=== PATIENT | male | born 1945 | race Two or more races ===

== ENCOUNTER 2021-11-16 11:28 | Outpatient (REF) | payer MEDICARE, MEDICAID, SELFPAY ==
[2021-11-16 12:48] LABS: COVID-19 Test Negative (Negative)
== END 2021-11-16 11:29 | disposition home or self-care (01) ==
LOC: HO.LAB 11:28
PROVIDERS: PCP Internal Medicine; Visit Provider Internal Medicine
DX: Z20.822 Contact with and (suspected) exposure to COVID-19 (principal)
CPT/HCPCS: 36415; 87635; C9803

== ENCOUNTER 2021-11-20 19:02 | Inpatient (IN) | payer MEDICARE, MEDICAID, SELFPAY ==
--- NOTE | ~2021-11-20 | XR_ITS ---
EXAMINATION: XR CHEST CLINICAL INFORMATION: Shortness of breath and cough COMPARISON: Chest radiograph 01/08/2009 TECHNIQUE: Frontal view of the chest was obtained. FINDINGS: Heart size is normal. At the time of the prior study some atelectasis was present at the right lung base with some minimal chronic markings at the left lung base which persist today. On the current study, there are increased peripheral patchy densities with relative sparing of the upper lobes. Findings would certainly be compatible with mild changes related to Covid pulmonary disease. XR/XR chest 1V IMPRESSION: New peripheral patchy densities compared with the 2009 study.
--- NOTE | ~2021-11-20 | CT_ITS ---
EXAMINATION: CT CHEST WITHOUT CONTRAST CLINICAL INFORMATION: Shortness of breath and abnormal chest x-ray COMPARISON: Chest radiograph earlier today, chest radiograph 01/08/2009, CTA chest 05/15/2009 TECHNIQUE: Multidetector volumetric CT imaging of the chest was done. Axial MIP volume rendering provided. Sagittal and coronal reformatted images were obtained. This CT examination was performed using dose optimization techniques as appropriate, variously including the following: *Automated exposure control *Adjustment of mA and/or kV according to patient size (this includes techniques or standardized protocols for targeted exams where dose is matched to indication/reason for exam; i.e. extremities or head) *Use of iterative reconstruction technique DLP: 279 mGy-cm FINDINGS: LUNGS: The findings in the lung bases demonstrates severe COPD with peripheral honeycombing and some associated bronchiectasis most marked at the lung bases. Findings are suggestive of associated interstitial lung disease/idiopathic pulmonary fibrosis. Similar changes were present at the time of the 05/15/2009 exam although exact comparisons cannot be made as only a portion of the CT images are available for review. No groundglass infiltrates are seen that would be typical for Covid as mentioned in the prior chest radiograph report. No suspicious lung masses are seen. MEDIASTINUM: Preaortic, AP window pretracheal/precarinal and subcarinal lymph nodes are present. The largest precarinal lymph node measures 2.0 x 1.1 cm (5:199). The largest subcarinal lymph node measures 3.4 x 2.0 x 3.0 cm (5:251). It is difficult to assess for hilar lymph nodes without IV contrast. Marked coronary calcification is seen. Heart size is normal. PLEURA: There is no pleural effusion. No pleural mass or thickening. AXILLA: No lymphadenopathy. UPPER ABDOMEN: Unremarkable. OSSEOUS STRUCTURES: Degenerative changes present throughout the spine. No bony destructive lesions. CT/CT chest wo con IMPRESSION: 1. There is severe COPD as well as peripheral honeycombing and bronchiectasis suggestive of associated interstitial lung disease/idiopathic pulmonary fibrosis. 2. The questionable findings of Covid pneumonia suspected on the chest radiograph are NOT present. 3. Mediastinal lymphadenopathy, possibly reactive. Fleischner guidelines were followed.
[2021-11-20 19:26] VITALS: BP 138/65; PULSE 92; RESP 24; TEMP 37.4; O2SAT 93; BMI 27.8
--- NOTE | 2021-11-20 19:29 | ECG_ITS ---
Test Reason : SOB Blood Pressure : / mmHG Vent. Rate : 081 BPM Atrial Rate : 081 BPM P-R Int : 154 ms QRS Dur : 092 ms QT Int : 388 ms P-R-T Axes : 062 029 052 degrees QTc Int : 450 ms Artifact in tracing Normal sinus rhythm Likely normal EKG When compared with ECG of 15-MAY-2009 12:07, Minimal criteria for Inferior infarct are no longer Present Referred By: Radha Medellin Electronically Signed By:ANA SOLIS
--- NOTE | 2021-11-20 19:30 | ED.SOB ---
HPI - SOB/Dyspnea General Chief Complaint: Dyspnea Stated Complaint: diff breathing Time Seen by Provider: 11/20/21 19:08 Source: patient, EMS and purse seiner ([place]ian) Mode of arrival: EMS Limitations: no limitations History of Present Illness HPI Narrative: 76-year-old male a former smoker presented with symptoms of shortness of breath, productive cough of white sputum, symptoms started 3 days ago, patient declined any chest pain, no sick contacts, no recent travel, shortness of breath was described as a constant symptoms for 3 days, exacerbated with exertion, relieved by rest, no fever, no chills, no lower extremity swelling. Patient received flu/COVID vaccination. Patient has no documented history of COPD or asthma, do not use supplemental oxygen at home. Reportedly by EMS was satting 75% on room air at home improved with 4 L of supplemental oxygen via nasal cannula. Related Data Home Medications Medication Instructions Recorded Confirmed adalimumab 40 mg/0.4 mL 40 mg SUBCUT Q2W 11/20/21 11/20/21 subcutaneous pen kit (Humira(CF) Pen) amlodipine 5 mg tablet 1 tab PO DAILY 11/20/21 11/20/21 folic acid 400 mcg tablet 40 mg PO BID 11/20/21 11/20/21 hydrochlorothiazide 25 mg tablet 1 tab PO DAILY 11/20/21 11/20/21 losartan 100 mg tablet 1 tab PO DAILY 11/20/21 11/20/21 methotrexate sodium 2.5 mg tablet 5 tab PO QWEEK 11/20/21 11/20/21 metoprolol tartrate 50 mg tablet 1 tab PO BID 11/20/21 11/20/21 omeprazole 20 mg capsule,delayed 1 cap PO DAILY 11/20/21 11/20/21 release rosuvastatin 10 mg tablet 1 tab PO BEDTIME 11/20/21 11/20/21 timolol maleate 0.5 % eye drops drp OPHTHALMIC (EYE) 11/20/21 11/20/21 tramadol 50 mg tablet 1 tab PO BID PRN 11/20/21 11/20/21 warfarin 5 mg tablet 1 tab PO DAILY 11/20/21 11/20/21 Allergies Allergy/AdvReac Type Severity Reaction Status Date / Time No Known Allergies Allergy Unknown NOT Unverified 08/14/20 16:41 APPLICABLE Review of Systems Review of Systems: All other systems are reviewed and are negative Constitutional: Reports as per HPI and Reports no additional constitutional complaints Eyes: Reports as per HPI and Reports no additional eye complaints Reports system reviewed and no additional complaints, except as documented Cardiovascular: Reports as per HPI and Reports no additional cardiovascular complaints Respiratory: Reports as per HPI and Reports no additional respiratory complaints Gastrointestinal: Reports as per HPI and Reports no additional gastrointestinal complaints Genitourinary: Reports no additional female genitourinary complaints Musculoskeletal: Reports no additional musculoskeletal complaints Skin/Breast: Reports system reviewed and no additional complaints, except as docu Psychiatric: Reports no additional psychiatric complaints Endocrine: Reports no additional endocrine complaints Hematologic/Lymphatic: Reports no additional hematologic/lymphatic complaints Allergic/Immunologic: Reports no additional allergic/immunologic complaints Reports system reviewed and no additional complaints, except as documented and Reports Abnormal speech present [facility] Social History Social History Advance Directives: No Advance Directives Information Provided: Yes Physical Exam Vital Signs: Vital Signs: Last Vital Signs Temp 99.3 F 11/20/21 19:26 Pulse 82 11/20/21 19:58 Resp 24 H 11/20/21 19:26 BP 138/65 11/20/21 19:26 Pulse Ox 93 11/20/21 19:26 BMI result Body Mass Index 27.8 Vital signs have been reviewed as appeared to be correct. Blood pressure normal. Heart rate normal. Respiration rate normal. Temperature normal. Oxygen saturation normal. Appearance: Alert. Oriented X3. No acute distress. Head: Normal external exam. Normocephalic. Atraumatic. No Navarro signs noted. No raccoon eyes noted Eyes: PERRLA. EOMI. Conjunctiva and sclera normal. Eyelids normal. ENT: TM's Normal. Pharynx normal. Uvula midline. Moist mucous membranes. No trismus noted. No drooling noted. No muffled voice noted. Neck: Normal inspection. Neck supple. FROM. No adenopathy. Thyroid Normal. No meningeal signs. No neck mass noted. CVS: Normal heart rate and rhythm. Heart sound normal. No murmurs noted. Pulses normal throughout. Respiratory: No respiratory distress. Painless inspiration. Breath sounds normal. Bilateral diffuse mild expiratory wheezing with prolonged expiration, No accessory muscle usage noted or decreased air movement noted. Abdomen: Soft and nontender. Bowel sounds normal in all 4 quadrants. No distention noted. No organomegaly noted. No visible injury noted. Back: No CVA tenderness. Full range of motion noted. Skin: Skin warm and dry. Normal skin color. Normal skin turgor. No rashes/lesions/lacerations noted. Extremities: No lower extremity edema. Extremities exhibit normal range of motion. Extremities nontender. Neuro: Oriented X 3. Cranial nerve exam: II-XII are grossly intact No motor deficit. No sensory deficit. Reflexes normal. Course Course Course Narrative: Assessment and plan. 76-year-old male former smoker but no official diagnosis of COPD or asthma, patient do not need or use supplemental oxygen, the mended by EMS patient was hypoxic on room, in the ED patient improved with 6 L of oxygen, patient received bronchodilator/Solu-Medrol/magnesium for wheezing, patient is vaccinated for COVID and tested negative, however patient is positive for flu. Will admit the patient for flu with hypoxia and the need of supplemental oxygen. MDM - SOB/Dyspnea Medical Records Attestation: I reviewed the patient's medical records. Lab Data Attestation: I reviewed the patient's lab results. Result diagrams: 11/20/21 20:48 11/20/21 20:48 Labs: Lab Results 11/20/21 11/20/21 11/20/21 Range/Units 20:22 20:48 20:48 WBC 7.1 (4.8-10.8) X10*3/uL RBC 4.80 (4.60-5.80) X10*6/uL Hgb 15.2 (14.0-18.0) g/dl Hct 45.5 (42.0-52.0) % MCV 94.8 (80.0-98.0) fL MCH 31.7 (27.0-33.0) pg MCHC 33.4 (31.0-36.0) g/dl RDW 13.9 (11.0-16.0) % Plt Count 146 L (160-400) X10*3/uL MPV 10.3 (9.4-12.4) fL Immature Gran % (Auto) 0.3 (0.0-0.4) % Neut % (Auto) 56.4 (45-73) % Lymph % (Auto) 30.0 (20-40) % Amador % (Auto) 11.2 H (2-11) % Eos % (Auto) 1.8 (0-4) % Baso % (Auto) 0.3 (0-2) % Lymph # (Auto) 2.1 (1.2-4.9) X10*3/uL Amador # (Auto) 0.8 (0.1-1.2) X10*3/uL Eos # (Auto) 0.1 (0.0-0.4) X10*3/uL Baso # (Auto) 0.0 (0.0-0.2) X10*3/uL Abs Immat Gran (auto) 0.02 (0.00-0.03) X10*3/uL Absolute Neuts (auto) 4.0 (2.0-8.3) x10*3/uL Absolute Nucleated RBC 0.000 (0.0-0.012) X10*3/uL Nucleated RBC % (auto) 0.0 (0.0-0.2) /100WBC O2 Saturation 97.0 % ABG pH at Pt Temp 7.48 H (7.35-7.45) ABG pH (Temp Correct) 7.47 H (7.35-7.45) ABG pCO2 at Pt Temp 33 (32-45) mmHg ABG pCO2 (Temp Corrct 33 (32-45) mmHg ABG pO2 at Pt Temp 99 (83-108) mmHg ABG pO2 (Temp Correct 102 (83-108) ABG HCO3 24 (22-26) mmol/L ABG Base Excess (Actual) 2.0 mmol/L Sodium 128 L (135-145) mmol/L Potassium 4.5 (3.3-5.1) mmol/L Chloride 93 L (96-108) mmol/L Carbon Dioxide 26 (22-29) mmol/L Anion Gap 14 (12-20) BUN 20 H (9-16) mg/dL Creatinine 1.47 H (0.5-1.4) mg/dL Estim Creat Clear Calc 48.4 Estimated GFR 46 Random Glucose 115 (60-115) mg/dL Lactic Acid (0.5-2.0) mmol/L Calcium 9.4 (8.4-10.2) mg/dL Total Bilirubin 0.7 (0.0-1.0) mg/dL Direct Bilirubin 0.3 (0.0-0.5) mg/dL AST 27 (5-37) U/L ALT 22 (0-40) U/L Alkaline Phosphatase 87 (39-117) U/L Troponin I High Sens (<3.5-35.0) ng/L B-Natriuretic Peptide (<100) pg/mL Total Protein 9.0 H (6.5-8.0) g/dL Albumin 3.9 (3.5-5.0) g/dL Lipase 75 (8-78) U/L Influenza Type A (PCR) (Negative) Influenza Type B (PCR) (Negative) RSV RNA Qual (PCR) (Negative) SARS-CoV-2 RNA (RT-PCR) (Negative) 11/20/21 11/20/21 11/20/21 Range/Units 20:48 20:48 20:48 WBC (4.8-10.8) X10*3/uL RBC (4.60-5.80) X10*6/uL Hgb (14.0-18.0) g/dl Hct (42.0-52.0) % MCV (80.0-98.0) fL MCH (27.0-33.0) pg MCHC (31.0-36.0) g/dl RDW (11.0-16.0) % Plt Count (160-400) X10*3/uL MPV (9.4-12.4) fL Immature Gran % (Auto) (0.0-0.4) % Neut % (Auto) (45-73) % Lymph % (Auto) (20-40) % Amador % (Auto) (2-11) % Eos % (Auto) (0-4) % Baso % (Auto) (0-2) % Lymph # (Auto) (1.2-4.9) X10*3/uL Amador # (Auto) (0.1-1.2) X10*3/uL Eos # (Auto) (0.0-0.4) X10*3/uL Baso # (Auto) (0.0-0.2) X10*3/uL Abs Immat Gran (auto) (0.00-0.03) X10*3/uL Absolute Neuts (auto) (2.0-8.3) x10*3/uL Absolute Nucleated RBC (0.0-0.012) X10*3/uL Nucleated RBC % (auto) (0.0-0.2) /100WBC O2 Saturation % ABG pH at Pt Temp (7.35-7.45) ABG pH (Temp Correct) (7.35-7.45) ABG pCO2 at Pt Temp (32-45) mmHg ABG pCO2 (Temp Corrct (32-45) mmHg ABG pO2 at Pt Temp (83-108) mmHg ABG pO2 (Temp Correct (83-108) ABG HCO3 (22-26) mmol/L ABG Base Excess (Actual) mmol/L Sodium (135-145) mmol/L Potassium (3.3-5.1) mmol/L Chloride (96-108) mmol/L Carbon Dioxide (22-29) mmol/L Anion Gap (12-20) BUN (9-16) mg/dL Creatinine (0.5-1.4) mg/dL Estim Creat Clear Calc Estimated GFR Random Glucose (60-115) mg/dL Lactic Acid 1.2 (0.5-2.0) mmol/L Calcium (8.4-10.2) mg/dL Total Bilirubin (0.0-1.0) mg/dL Direct Bilirubin (0.0-0.5) mg/dL AST (5-37) U/L ALT (0-40) U/L Alkaline Phosphatase (39-117) U/L Troponin I High Sens 7.4 (<3.5-35.0) ng/L B-Natriuretic Peptide 140 H (<100) pg/mL Total Protein (6.5-8.0) g/dL Albumin (3.5-5.0) g/dL Lipase (8-78) U/L Influenza Type A (PCR) (Negative) Influenza Type B (PCR) (Negative) RSV RNA Qual (PCR) (Negative) SARS-CoV-2 RNA (RT-PCR) (Negative) 11/20/21 Range/Units 20:48 WBC (4.8-10.8) X10*3/uL RBC (4.60-5.80) X10*6/uL Hgb (14.0-18.0) g/dl Hct (42.0-52.0) % MCV (80.0-98.0) fL MCH (27.0-33.0) pg MCHC (31.0-36.0) g/dl RDW (11.0-16.0) % Plt Count (160-400) X10*3/uL MPV (9.4-12.4) fL Immature Gran % (Auto) (0.0-0.4) % Neut % (Auto) (45-73) % Lymph % (Auto) (20-40) % Amador % (Auto) (2-11) % Eos % (Auto) (0-4) % Baso % (Auto) (0-2) % Lymph # (Auto) (1.2-4.9) X10*3/uL Amador # (Auto) (0.1-1.2) X10*3/uL Eos # (Auto) (0.0-0.4) X10*3/uL Baso # (Auto) (0.0-0.2) X10*3/uL Abs Immat Gran (auto) (0.00-0.03) X10*3/uL Absolute Neuts (auto) (2.0-8.3) x10*3/uL Absolute Nucleated RBC (0.0-0.012) X10*3/uL Nucleated RBC % (auto) (0.0-0.2) /100WBC O2 Saturation % ABG pH at Pt Temp (7.35-7.45) ABG pH (Temp Correct) (7.35-7.45) ABG pCO2 at Pt Temp (32-45) mmHg ABG pCO2 (Temp Corrct (32-45) mmHg ABG pO2 at Pt Temp (83-108) mmHg ABG pO2 (Temp Correct (83-108) ABG HCO3 (22-26) mmol/L ABG Base Excess (Actual) mmol/L Sodium (135-145) mmol/L Potassium (3.3-5.1) mmol/L Chloride (96-108) mmol/L Carbon Dioxide (22-29) mmol/L Anion Gap (12-20) BUN (9-16) mg/dL Creatinine (0.5-1.4) mg/dL Estim Creat Clear Calc Estimated GFR Random Glucose (60-115) mg/dL Lactic Acid (0.5-2.0) mmol/L Calcium (8.4-10.2) mg/dL Total Bilirubin (0.0-1.0) mg/dL Direct Bilirubin (0.0-0.5) mg/dL AST (5-37) U/L ALT (0-40) U/L Alkaline Phosphatase (39-117) U/L Troponin I High Sens (<3.5-35.0) ng/L B-Natriuretic Peptide (<100) pg/mL Total Protein (6.5-8.0) g/dL Albumin (3.5-5.0) g/dL Lipase (8-78) U/L Influenza Type A (PCR) POSITIVE A (Negative) Influenza Type B (PCR) NEGATIVE (Negative) RSV RNA Qual (PCR) NEGATIVE (Negative) SARS-CoV-2 RNA (RT-PCR) NEGATIVE (Negative) ABG Data Attestation: I personally reviewed and interpreted this ABG as follows: Imaging Data Chest x-ray: Attestation: I personally reviewed and interpreted this imaging study as follows: Radiologist's impression: New peripheral patchy densities compared with the 2009 study. ? CT scan - chest: Attestation: I personally reviewed and interpreted this imaging study as follows: Radiologist's impression: 1.? There is severe COPD as well as peripheral honeycombing and bronchiectasis suggestive of associated interstitial lung disease/idiopathic? pulmonary fibrosis. 2.? The questionable findings of Covid pneumonia suspected on the chest radiograph are NOT present.? 3.? Mediastinal lymphadenopathy, possibly reactive. ? Discharge Plan Discharge Clinical Impression: Asthma with exacerbation, Influenza A, Hypoxia Patient Disposition: Admitted As Inpatient Prescriptions: No Action amlodipine 5 mg tablet 1 tab PO DAILY RF: 0 folic acid 400 mcg tablet 40 mg PO BID RF: 0 tramadol 50 mg tablet 1 tab PO BID PRN (Reason: Pain, Moderate) RF: 0 methotrexate sodium 2.5 mg tablet 5 tab PO QWEEK RF: 0 warfarin 5 mg tablet 1 tab PO DAILY RF: 0 metoprolol tartrate 50 mg tablet 1 tab PO BID RF: 0 omeprazole 20 mg capsule,delayed release(DR/EC) 1 cap PO DAILY RF: 0 hydrochlorothiazide 25 mg tablet 1 tab PO DAILY RF: 0 timolol maleate 0.5 % drops ophthalmic (eye) RF: 0 losartan 100 mg tablet 1 tab PO DAILY RF: 0 rosuvastatin 10 mg tablet 1 tab PO BEDTIME RF: 0 Humira(CF) Pen 40 mg/0.4 mL pen injector kit 40 mg subcut Q2W RF: 0
[2021-11-20 19:58] VITALS: PULSE 82; O2SAT 95
[2021-11-20] MEDS: Albuterol Sulfate (0.083%) 2.5 MG/3 ML VIAL.NEB 5 MG INHALE (19:58)
[2021-11-20] MEDS: Albuterol/Iprat 2.5/0.5MG 3 ML AMPUL.NEB INHALE (19:58)
[2021-11-20 20:03] VITALS: O2SAT 94
[2021-11-20 20:26] LABS: ABG Refer to POC result
[2021-11-20 20:30] LABS: ABG HCO3 24 mmol/L (22-26); ABG pCO2 33 mmHg (32-45); ABG pCO2 TC 33 mmHg (32-45); ABG pH 7.48 (7.35-7.45); ABG pH TC 7.47 (7.35-7.45); ABG pO2 99 mmHg (83-108); ABG pO2 TC 102 (83-108)
[2021-11-20] MEDS: methylPREDNISolone Sod Succ 125 MG/2 ML VIAL IVPUSH (20:42)
[2021-11-20 20:53] LABS: MANUAL DIFF FLAG NO
[2021-11-20 20:55] LABS: Basophils Percent Auto 0.3 % (0-2); Eosinophils Absolute Auto 0.1 X10*3/uL (0.0-0.4); Eosinophils Percent Auto 1.8 % (0-4); Hematocrit 45.5 % (42.0-52.0); Hemoglobin 15.2 g/dl (14.0-18.0); Imm Gran Abs Auto 0.02 X10*3/uL (0.00-0.03); Imm Gran Pct Auto 0.3 % (0.0-0.4); Lymphocytes Absolute Auto 2.1 X10*3/uL (1.2-4.9); Mean Corpuscular HGB Conc 33.4 g/dl (31.0-36.0); Mean Corpuscular Hemoglobin 31.7 pg (27.0-33.0); Mean Corpuscular Volume 94.8 fL (80.0-98.0); Mean Platelet Volume 10.3 fL (9.4-12.4); Monocytes Absolute Auto 0.8 X10*3/uL (0.1-1.2); Monocytes Percent Auto 11.2 % (2-11); Neutrophils Percent Auto 56.4 % (45-73); Platelet Count 146 X10*3/uL (160-400); Red Cell Distribution Width 13.9 % (11.0-16.0); White Blood Count 7.1 X10*3/uL (4.8-10.8)
[2021-11-20] MEDS: Magnesium Sulfate/H2O 2 GM/50 ML PIGGYBACK IV (20:57)
[2021-11-20 21:13] LABS: Lactic Acid 1.2 mmol/L (0.5-2.0)
[2021-11-20 21:17] LABS: Alanine Aminotransferase 22 U/L (0-40); Albumin Level 3.9 g/dL (3.5-5.0); Alkaline Phosphatase 87 U/L (39-117); Anion Gap 14 (12-20); Aspartate Amino Transferase 27 U/L (5-37); Bilirubin Direct 0.3 mg/dL (0.0-0.5); Bilirubin Total 0.7 mg/dL (0.0-1.0); Blood Urea Nitrogen 20 mg/dL (9-16); Calcium 9.4 mg/dL (8.4-10.2); Carbon Dioxide 26 mmol/L (22-29); Chloride 93 mmol/L (96-108); Creatinine Clr Calc Pharmacy 48.4; Estimated Glomerular Filt Rate 46; Glucose Random 115 mg/dL (60-115); Lipase 75 U/L (8-78); Potassium 4.5 mmol/L (3.3-5.1); Sodium 128 mmol/L (135-145)
[2021-11-20 21:24] LABS: Troponin-I High Sensitivity 7.4 ng/L (<3.5-35.0)
[2021-11-20 21:34] LABS: B Type Natriuretic Peptide 140 pg/mL (<100)
[2021-11-20] MEDS: 0.9 % Sodium Chloride 1,000 ML 999 ML IVCONT (21:53)
[2021-11-20] MEDS: cefTRIAXone sodium 1 GM in 0.9 % Sodium Chloride 50 ML IV (21:53)
[2021-11-20 21:59] LABS: Influenza A PCR POSITIVE (Negative); Influenza B PCR NEGATIVE (Negative); Resp Syncy Virus RNA Qual PCR NEGATIVE (Negative); SARS COV2 PCR INHOUSE NEGATIVE (Negative)
--- NOTE | 2021-11-20 23:04 | P.HPHOSP_ITS ---
History of Present Illness Date of Service: 11/20/21 Chief Complaint: SOB 76-year-old male with a past medical history of hypertension, hyperlipidemia, CAD, history of OK, rheumatoid arthritis,?paroxysmal afib (pt reports he has Afib) former smoker presented to the hospital with a chief complaint of shortness of breath. Patient reported that over the past 3 days he has been having cough and shortness of breath; presented with sputum production Denies any chest pain or palpitations. Complains of dyspnea on exertion Denies prior history of COPD diagnosis. Denies any GI symptoms. Review of all other systems is negative except mentioned above ER course: Per ER team as reported by the EMS patient was noted to be 70% on room air; baseline 4 L of nasal cannula with improvement in oxygenation; currently not in distress; noted to have wheezing; given nebulizations and steroids; upon ambulation in the ER patient desaturated to high 80s; admitted to the hospital for further management. PMFSH Pertinent family history: Reviewed Social History Advance Directives: No Advance Directives Information Provided: Yes Meds Allergies Allergy/AdvReac Type Severity Reaction Status Date / Time No Known Allergies Allergy Unknown NOT Unverified 08/14/20 16:41 APPLICABLE Active Medications: Current Medications Acetaminophen (Acetaminophen 325 Mg Tablet) 650 mg PO Q6H PRN PRN Reason: Pain, Mild (Pain Scale 1-3) Albuterol Sulfate (Albuterol Sulfate (0.083%) 2.5 Mg/3 Ml Vial.Neb) 2.5 mg INHALE Q2H PRN PRN Reason: Shortness of Breath/Wheezing Albuterol/Ipratropium (Albuterol/Iprat 2.5/0.5mg 3 Ml Ampul.Neb) 3 ml INHALE RQ4H WHILE AWAKE JEN Azithromycin (Azithromycin 500 Mg Tablet) 500 mg PO Q24H JEN Azithromycin 500 mg/ Sodium (Chloride) 250 mls @ 125 mls/hr IV ONCE ONE Stop: 11/20/21 23:21 Last Admin: 11/20/21 22:51 Dose: Not Given Documented by: Sodium Chloride (Ns) 1,000 mls @ 100 mls/hr IVCONT .Q10H ONE Stop: 11/21/21 09:02 Melatonin (Melatonin 3 Mg Tablet) 6 mg PO BEDTIME PRN PRN Reason: Insomnia Methylprednisolone Sodium Succinate (Methylprednisolone Sod Succ 40 Mg/Ml Vial) 40 mg IVPUSH Q6H [facility] Senna (Sennosides 8.6 Mg Tablet) 17.2 mg PO BEDTIME PRN PRN Reason: Constipation Sodium Chloride (0.9 % Sodium Chloride Flush 3 Ml Syringe) 3 ml IVFLUSH QSHIFT JEN Home Medications Medication Instructions Recorded Confirmed Last Taken Type adalimumab 40 mg/0.4 mL 40 mg SUBCUT Q2W 11/20/21 11/20/21 Unknown History subcutaneous pen kit (Humira(CF) Pen) amlodipine 5 mg tablet 1 tab PO DAILY 11/20/21 11/20/21 Unknown History folic acid 400 mcg tablet 40 mg PO BID 11/20/21 11/20/21 Unknown History hydrochlorothiazide 25 mg tablet 1 tab PO DAILY 11/20/21 11/20/21 Unknown History losartan 100 mg tablet 1 tab PO DAILY 11/20/21 11/20/21 Unknown History methotrexate sodium 2.5 mg tablet 5 tab PO QWEEK 11/20/21 11/20/21 Unknown His tory metoprolol tartrate 50 mg tablet 1 tab PO BID 11/20/21 11/20/21 Unknown History omeprazole 20 mg capsule,delayed 1 cap PO DAILY 11/20/21 11/20/21 Unknown History release rosuvastatin 10 mg tablet 1 tab PO BEDTIME 11/20/21 11/20/21 Unknown History timolol maleate 0.5 % eye drops drp OPHTHALMIC (EYE) 11/20/21 11/20/21 Unknown History tramadol 50 mg tablet 1 tab PO BID PRN 11/20/21 11/20/21 Unknown History warfarin 5 mg tablet 1 tab PO DAILY 11/20/21 11/20/21 Unknown History Physical Exam Vital Signs and Narrative: Vital Signs: Last Vital Signs Temp 99.3 F 11/20/21 19:26 Pulse 82 11/20/21 19:58 Resp 24 H 11/20/21 19:26 BP 138/65 11/20/21 19:26 Pulse Ox 93 11/20/21 19:26 BMI result Body Mass Index 27.8 Gen: Appears be in no acute distress HEENT: NCAT, Moist mucosa. Pulmonary: Bilateral expiratory wheezing present CVS: Normal S1-S2 Abdomen: BS+, Soft, Nontender Extremities: Warm well perfused Neuro: Alert and awake. Results Labs CBC and Chem 7: 11/20/21 20:48 11/20/21 20:48 Labs: Laboratory Results - last 24 hr 11/20/21 11/20/21 11/20/21 20:22 20:48 20:48 MCV 94.8 MCH 31.7 MCHC 33.4 RDW 13.9 Plt Count 146 L MPV 10.3 Immature Gran % (Auto) 0.3 Neut % (Auto) 56.4 Lymph % (Auto) 30.0 [place] % (Auto) 11.2 H Eos % (Auto) 1.8 Baso % (Auto) 0.3 Lymph # (Auto) 2.1 [place] # (Auto) 0.8 Eos # (Auto) 0.1 Baso # (Auto) 0.0 Abs Immat Gran (auto) 0.02 Absolute Neuts (auto) 4.0 Absolute Nucleated RBC 0.000 Nucleated RBC % (auto) 0.0 O2 Saturation 97.0 ABG pH at Pt Temp 7.48 H ABG pH (Temp Correct) 7.47 H ABG pCO2 at Pt Temp 33 ABG pCO2 (Temp Corrct 33 ABG pO2 at Pt Temp 99 ABG pO2 (Temp Correct 102 ABG HCO3 24 ABG Base Excess (Actual) 2.0 Anion Gap 14 Estim Creat Clear Calc 48.4 Estimated GFR 46 Random Glucose 115 Lactic Acid Calcium 9.4 Total Bilirubin 0.7 Direct Bilirubin 0.3 AST 27 ALT 22 Alkaline Phosphatase 87 Troponin I High Sens B-Natriuretic Peptide Total Protein 9.0 H Albumin 3.9 Lipase 75 Influenza Type A (PCR) Influenza Type B (PCR) RSV RNA Qual (PCR) SARS-CoV-2 RNA (RT-PCR) 11/20/21 11/20/21 11/20/21 20:48 20:48 20:48 MCV MCH MCHC RDW Plt Count MPV Immature Gran % (Auto) Neut % (Auto) Lymph % (Auto) [place] % (Auto) Eos % (Auto) Baso % (Auto) Lymph # (Auto) [place] # (Auto) Eos # (Auto) Baso # (Auto) Abs Immat Gran (auto) Absolute Neuts (auto) Absolute Nucleated RBC Nucleated RBC % (auto) O2 Saturation ABG pH at Pt Temp ABG pH (Temp Correct) ABG pCO2 at Pt Temp ABG pCO2 (Temp Corrct ABG pO2 at Pt Temp ABG pO2 (Temp Correct ABG HCO3 ABG Base Excess (Actual) Anion Gap Estim Creat Clear Calc Estimated GFR Random Glucose Lactic Acid 1.2 Calcium Total Bilirubin Direct Bilirubin AST ALT Alkaline Phosphatase Troponin I High Sens 7.4 B-Natriuretic Peptide 140 H Total Protein Albumin Lipase Influenza Type A (PCR) Influenza Type B (PCR) RSV RNA Qual (PCR) SARS-CoV-2 RNA (RT-PCR) 11/20/21 20:48 MCV MCH MCHC RDW Plt Count MPV Immature Gran % (Auto) Neut % (Auto) Lymph % (Auto) [place] % (Auto) Eos % (Auto) Baso % (Auto) Lymph # (Auto) [place] # (Auto) Eos # (Auto) Baso # (Auto) Abs Immat Gran (auto) Absolute Neuts (auto) Absolute Nucleated RBC Nucleated RBC % (auto) O2 Saturation ABG pH at Pt Temp ABG pH (Temp Correct) ABG pCO2 at Pt Temp ABG pCO2 (Temp Corrct ABG pO2 at Pt Temp ABG pO2 (Temp Correct ABG HCO3 ABG Base Excess (Actual) Anion Gap Estim Creat Clear Calc Estimated GFR Random Glucose Lactic Acid Calcium Total Bilirubin Direct Bilirubin AST ALT Alkaline Phosphatase Troponin I High Sens B-Natriuretic Peptide Total Protein Albumin Lipase Influenza Type A (PCR) POSITIVE A Influenza Type B (PCR) NEGATIVE RSV RNA Qual (PCR) NEGATIVE SARS-CoV-2 RNA (RT-PCR) NEGATIVE Imaging Radiologist's Impressions: Impressions Chest X-Ray 11/20/21 19:54 IMPRESSION: New peripheral patchy densities compared with the [address] 11/20/21 22:19 IMPRESSION: 1. There is severe COPD as well as peripheral honeycombing and bronchiectasis suggestive of associated interstitial lung disease/idiopathic pulmonary fibrosis. 2. The questionable findings of Covid pneumonia suspected on the chest radiograph are NOT present. 3. Mediastinal lymphadenopathy, possibly reactive. Fleischner guidelines were followed. Assessment and Plan (1) COPD (chronic obstructive pulmonary disease): Status: Acute 76-year-old male with a past medical history of hypertension, hyperlipidemia, CAD, history of OK, rheumatoid arthritis, former smoker presented to the hospital with a chief complaint of shortness of breath. Noted to have acute COPD exacerbation. Admitted for further management. Acute hypoxic respiratory failure: Patient currently not in distress. Placed on supplemental oxygen. Likely in the setting of COPD however patient has no prior formal diagnosis of COPD but CT chest showed extensive emphysematous changes. CT chest findings also concerning for interstitial lung disease/pulmonary fibrosis. Will consult pulmonology for further recommendations. EKG nonischemic, troponin is pending Influenza A positive: Will order Tamiflu (renally dosed); empirically covered with ceftriaxone and azithromycin to cover for any superimposed bacterial infection. Acute COPD exacerbation: Continue Solu-Medrol IV t.i.d. Nebulizations standing and p.r.n. Azithromycin Hyponatremia: Likely low solute state. Gentle IV fluids. NACHO: Patient's creatinine on presentation is 1.47. Patient has prior creatinine was 1.2 in December of 2019. Patient on gentle IV fluids as mentioned. History of rheumatoid arthritis: Continue home medications History of hypertension/hyperlipidemia/CAD: Continue home medications Hisotry of paroxysmal Afib: c/w Coumadin. INR pending. Code status: Full code Quality Stroke Does the patient have a stroke diagnosis?: No VTE Prior VTE?: No VTE Risk Level:: Medical - moderate - high VTE Device Contraindication: N/A - Device Ordered VTE Drug Contraindication: N/A - Med Ordered
[2021-11-21] VITALS (11 sets, daily range): BP systolic 129–145; BP diastolic 57–85; PULSE 60–85; RESP 12–19; TEMP 36.7–36.9; O2SAT 86–98
[2021-11-21 00:32] LABS: INTERNATIONAL NORM RATIO 1.8 (0.9-1.1)
[2021-11-21] MEDS: methylPREDNISolone Sod Succ 40 MG/ML VIAL IVPUSH ×2 (00:32→06:43)
[2021-11-21] MEDS: 0.9 % Sodium Chloride 1,000 ML 50 ML IVCONT (00:33)
[2021-11-21 00:48] LABS: Troponin-I High Sensitivity 9.2 ng/L (<3.5-35.0)
[2021-11-21 00:50] LABS: Appearance Urine CLEAR; Color Urine YELLOW; Glucose Urine UA NEG (NEG); Leukocyte Esterase Urine NEG (NEG); Nitrite Urine NEG (NEG); UACC Culture Trigger NO; Urine Blood TRACE (NEG); Urine Ketones NEG (NEG); Urine Protein TRACE MG/DL (NEG-TRACE)
--- NOTE | 2021-11-21 00:50 | PC.NURSE ---
call placed to night pharmacy regarding unverified medications
[2021-11-21 00:58] LABS: Bacteria Urine 1+ /LPF; Squamous Epithelial Cell Urine 1+ /LPF
[2021-11-21] MEDS: Oseltamivir Phosphate 75 MG CAPSULE PO (01:53)
[2021-11-21 09:01] LABS: MANUAL DIFF FLAG NO
[2021-11-21 09:04] LABS: Eosinophils Percent Auto 0.2 % (0-4); Hematocrit 44.4 % (42.0-52.0); Hemoglobin 14.8 g/dl (14.0-18.0); Imm Gran Abs Auto 0.02 X10*3/uL (0.00-0.03); Imm Gran Pct Auto 0.5 % (0.0-0.4); Lymphocytes Percent Auto 24.1 % (20-40); Mean Corpuscular HGB Conc 33.3 g/dl (31.0-36.0); Mean Corpuscular Hemoglobin 31.4 pg (27.0-33.0); Mean Corpuscular Volume 94.1 fL (80.0-98.0); Mean Platelet Volume 10.4 fL (9.4-12.4); Monocytes Absolute Auto 0.1 X10*3/uL (0.1-1.2); Monocytes Percent Auto 2.1 % (2-11); Neutrophils Absolute Auto 3.1 x10*3/uL (2.0-8.3); Neutrophils Percent Auto 73.1 % (45-73); Platelet Count 156 X10*3/uL (160-400); Red Blood Count 4.72 X10*6/uL (4.60-5.80); Red Cell Distribution Width 13.9 % (11.0-16.0); White Blood Count 4.2 X10*3/uL (4.8-10.8)
[2021-11-21 09:10] LABS: INTERNATIONAL NORM RATIO 1.6 (0.9-1.1); Prothrombin Time 18.9 SEC (9.9-13.0)
[2021-11-21] MEDS: Albuterol/Iprat 2.5/0.5MG 3 ML AMPUL.NEB INHALE ×4 (09:10→20:54)
[2021-11-21 09:20] LABS: Anion Gap 14 (12-20); Blood Urea Nitrogen 20 mg/dL (9-16); Calcium 9.2 mg/dL (8.4-10.2); Carbon Dioxide 26 mmol/L (22-29); Chloride 97 mmol/L (96-108); Creatinine Clr Calc Pharmacy 61.9; Estimated Glomerular Filt Rate > 60; Glucose Random 173 mg/dL (60-115); Potassium 4.8 mmol/L (3.3-5.1); Sodium 132 mmol/L (135-145)
[2021-11-21] MEDS: Metoprolol Tartrate 50 MG TABLET PO ×2 (09:28→19:35)
[2021-11-21] MEDS: amLODIPine Besylate 5 MG TABLET PO (09:28)
[2021-11-21] MEDS: Omeprazole 20 MG CAPSULE.DR PO (09:28)
--- NOTE | 2021-11-21 09:45 | PC.NURSE ---
call placed to pharmacy requesting patient's 30mg tamiflu as it is not in the pyxis or global find
[2021-11-21] MEDS: Folic Acid 1 MG TABLET PO (09:58)
--- NOTE | 2021-11-21 10:37 | P.PNIM_ITS ---
Subjective Subjective Date of Service: 11/21/21 Interval History: cC: weakness interval history: wants to go home, but still hypoxix Cardiovascular Cardiovascular: Reports no additional cardiovascular complaints Respiratory Respiratory: Reports no additional respiratory complaints Physical Exam Vital Signs: Vital Signs: Last Vital Signs Temp 99.3 F 11/20/21 19:26 Pulse 85 11/21/21 09:28 Resp 17 11/21/21 09:11 BP 145/85 H 11/21/21 09:28 Pulse Ox 98 11/21/21 06:51 BMI result Body Mass Index 27.8 General: AO X 3, no acute distress Resp: diminished bilateral, no accessory muscles used CVS: S1,S2,RRR GI: soft, non tender, non distended Neuro: motor grossly intact, alert Psych: appropriate affect, appropriate insight Objective Data Active Medications Acetaminophen (Acetaminophen 325 Mg Tablet) 650 mg PO Q6H PRN PRN Reason: Pain, Mild (Pain Scale 1-3) Albuterol Sulfate (Albuterol Sulfate (0.083%) 2.5 Mg/3 Ml Vial.Neb) 2.5 mg INHALE Q2H PRN PRN Reason: Shortness of Breath/Wheezing Albuterol/Ipratropium (Albuterol/Iprat 2.5/0.5mg 3 Ml Ampul.Neb) 3 ml INHALE RQ4H WHILE AWAKE COUNT INCLUDES THE [facility] Last Admin: 11/21/21 09:10 Dose: 3 ml Documented by: MORA Amlodipine Besylate (Amlodipine Besylate 5 Mg Tablet) 5 mg PO DAILY COUNT INCLUDES THE [facility]; Protocol Last Admin: 11/21/21 09:28 Dose: 5 mg Documented by: AMADOU Atorvastatin Calcium (Atorvastatin Calcium 20 Mg Tablet) 20 mg PO BEDTIME JEN Azithromycin (Azithromycin 500 Mg Tablet) 500 mg PO Q24H JEN Folic Acid (Folic Acid 1 Mg Tablet) 1 mg PO DAILY COUNT INCLUDES THE [facility] Last Admin: 11/21/21 09:58 Dose: 1 mg Documented by: AMADOU Melatonin (Melatonin 3 Mg Tablet) 6 mg PO BEDTIME PRN PRN Reason: Insomnia Methotrexate (Methotrexate Sodium 2.5 Mg Tablet) 12.5 mg PO We COUNT INCLUDES THE [facility] Methylprednisolone Sodium Succinate (Methylprednisolone Sod Succ 40 Mg/Ml Vial) 60 mg IVPUSH Q12H JEN Metoprolol Tartrate (Metoprolol Tartrate 50 Mg Tablet) 50 mg PO BID COUNT INCLUDES THE [facility]; Protocol Last Admin: 11/21/21 09:28 Dose: 50 mg Documented by: AMADOU Omeprazole (Omeprazole 20 Mg Capsule.) 20 mg PO DAILY COUNT INCLUDES THE [facility] Last Admin: 11/21/21 09:28 Dose: 20 mg Documented by: AMADOU Oseltamivir Phosphate (Oseltamivir Phosphate 30 Mg Capsule) 30 mg PO Q12H COUNT INCLUDES THE [facility] Stop: 11/25/21 21:01 Senna (Sennosides 8.6 Mg Tablet) 17.2 mg PO BEDTIME PRN PRN Reason: Constipation Sodium Chloride (0.9 % Sodium Chloride Flush 3 Ml Syringe) 3 ml IVFLUSH QSHIFT COUNT INCLUDES THE [facility] Last Admin: 11/21/21 09:27 Dose: Not Given Documented by: AMADOU Non-Admin Reason: IV FLUIDS INFUSING W/OUT ISSUE Tramadol HCl (Tramadol Hcl 50 Mg Tablet) 50 mg PO BID PRN PRN Reason: Pain, Moderate Warfarin Sodium (Warfarin Sodium 5 Mg Tablet) 5 mg PO DAILY@1800 COUNT INCLUDES THE [facility] Labs CBC & Chem 7: 11/21/21 08:11 11/21/21 08:11 Labs: Laboratory Results - last 24 hr 11/20/21 11/20/21 11/20/21 20:22 20:48 20:48 MCV 94.8 MCH 31.7 MCHC 33.4 RDW 13.9 Plt Count 146 L MPV 10.3 Immature Gran % (Auto) 0.3 Neut % (Auto) 56.4 Lymph % (Auto) 30.0 [place] % (Auto) 11.2 H Eos % (Auto) 1.8 Baso % (Auto) 0.3 Lymph # (Auto) 2.1 [place] # (Auto) 0.8 Eos # (Auto) 0.1 Baso # (Auto) 0.0 Abs Immat Gran (auto) 0.02 Absolute Neuts (auto) 4.0 Absolute Nucleated RBC 0.000 Nucleated RBC % (auto) 0.0 PT INR O2 Saturation 97.0 ABG pH at Pt Temp 7.48 H ABG pH (Temp Correct) 7.47 H ABG pCO2 at Pt Temp 33 ABG pCO2 (Temp Corrct 33 ABG pO2 at Pt Temp 99 ABG pO2 (Temp Correct 102 ABG HCO3 24 ABG Base Excess (Actual) 2.0 Anion Gap 14 Estim Creat Clear Calc 48.4 Estimated GFR 46 Random Glucose 115 Lactic Acid Calcium 9.4 Total Bilirubin 0.7 Direct Bilirubin 0.3 AST 27 ALT 22 Alkaline Phosphatase 87 Troponin I High Sens B-Natriuretic Peptide Total Protein 9.0 H Albumin 3.9 Lipase 75 Urine Color Urine Appearance Urine pH Ur Specific [place] Urine Protein Urine Glucose (UA) Urine Ketones Urine Blood Urine Nitrite Ur Leukocyte Esterase Urine RBC Urine WBC Ur Squamous Epith Cells Urine Bacteria Influenza Type A (PCR) Influenza Type B (PCR) RSV RNA Qual (PCR) SARS-CoV-2 RNA (RT-PCR) 11/20/21 11/20/21 11/20/21 20:48 20:48 20:48 MCV MCH MCHC RDW Plt Count MPV Immature Gran % (Auto) Neut % (Auto) Lymph % (Auto) [place] % (Auto) Eos % (Auto) Baso % (Auto) Lymph # (Auto) [place] # (Auto) Eos # (Auto) Baso # (Auto) Abs Immat Gran (auto) Absolute Neuts (auto) Absolute Nucleated RBC Nucleated RBC % (auto) PT INR O2 Saturation ABG pH at Pt Temp ABG pH (Temp Correct) ABG pCO2 at Pt Temp ABG pCO2 (Temp Corrct ABG pO2 at Pt Temp ABG pO2 (Temp Correct ABG HCO3 ABG Base Excess (Actual) Anion Gap Estim Creat Clear Calc Estimated GFR Random Glucose Lactic Acid 1.2 Calcium Total Bilirubin Direct Bilirubin AST ALT Alkaline Phosphatase Troponin I High Sens 7.4 B-Natriuretic Peptide 140 H Total Protein Albumin Lipase Urine Color Urine Appearance Urine pH Ur Specific [place] Urine Protein Urine Glucose (UA) Urine Ketones Urine Blood Urine Nitrite Ur Leukocyte Esterase Urine RBC Urine WBC Ur Squamous Epith Cells Urine Bacteria Influenza Type A (PCR) Influenza Type B (PCR) RSV RNA Qual (PCR) SARS-CoV-2 RNA (RT-PCR) 11/20/21 11/21/21 11/21/21 20:48 00:22 00:22 MCV MCH MCHC RDW Plt Count MPV Immature Gran % (Auto) Neut % (Auto) Lymph % (Auto) [place] % (Auto) Eos % (Auto) Baso % (Auto) Lymph # (Auto) [place] # (Auto) Eos # (Auto) Baso # (Auto) Abs Immat Gran (auto) Absolute Neuts (auto) Absolute Nucleated RBC Nucleated RBC % (auto) PT 21.0 H INR 1.8 H O2 Saturation ABG pH at Pt Temp ABG pH (Temp Correct) ABG pCO2 at Pt Temp ABG pCO2 (Temp Corrct ABG pO2 at Pt Temp ABG pO2 (Temp Correct ABG HCO3 ABG Base Excess (Actual) Anion Gap Estim Creat Clear Calc Estimated GFR Random Glucose Lactic Acid Calcium Total Bilirubin Direct Bilirubin AST ALT Alkaline Phosphatase Troponin I High Sens 9.2 B-Natriuretic Peptide Total Protein Albumin Lipase Urine Color Urine Appearance Urine pH Ur Specific [place] Urine Protein Urine Glucose (UA) Urine Ketones Urine Blood Urine Nitrite Ur Leukocyte Esterase Urine RBC Urine WBC Ur Squamous Epith Cells Urine Bacteria Influenza Type A (PCR) POSITIVE A Influenza Type B (PCR) NEGATIVE RSV RNA Qual (PCR) NEGATIVE SARS-CoV-2 RNA (RT-PCR) NEGATIVE 11/21/21 11/21/21 11/21/21 00:45 08:11 08:11 MCV 94.1 MCH 31.4 MCHC 33.3 RDW 13.9 Plt Count 156 L MPV 10.4 Immature Gran % (Auto) 0.5 H Neut % (Auto) 73.1 H Lymph % (Auto) 24.1 [place] % (Auto) 2.1 Eos % (Auto) 0.2 Baso % (Auto) 0.0 Lymph # (Auto) 1.0 L [place] # (Auto) 0.1 Eos # (Auto) 0.0 Baso # (Auto) 0.0 Abs Immat Gran (auto) 0.02 Absolute Neuts (auto) 3.1 Absolute Nucleated RBC 0.000 Nucleated RBC % (auto) 0.0 PT INR O2 Saturation ABG pH at Pt Temp ABG pH (Temp Correct) ABG pCO2 at Pt Temp ABG pCO2 (Temp Corrct ABG pO2 at Pt Temp ABG pO2 (Temp Correct ABG HCO3 ABG Base Excess (Actual) Anion Gap 14 Estim Creat Clear Calc 61.9 Estimated GFR > 60 Random Glucose 173 H D Lactic Acid Calcium 9.2 Total Bilirubin Direct Bilirubin AST ALT Alkaline Phosphatase Troponin I High Sens B-Natriuretic Peptide Total Protein Albumin Lipase Urine Color YELLOW Urine Appearance CLEAR Urine pH 6.0 Ur Specific [place] 1.010 Urine Protein TRACE Urine Glucose (UA) NEG Urine Ketones NEG Urine Blood TRACE Urine Nitrite NEG Ur Leukocyte Esterase NEG Urine RBC 1-4 Urine WBC 1-4 Ur Squamous Epith Cells 1+ Urine Bacteria 1+ Influenza Type A (PCR) Influenza Type B (PCR) RSV RNA Qual (PCR) SARS-CoV-2 RNA (RT-PCR) 11/21/21 08:12 MCV MCH MCHC RDW Plt Count MPV Immature Gran % (Auto) Neut % (Auto) Lymph % (Auto) [place] % (Auto) Eos % (Auto) Baso % (Auto) Lymph # (Auto) [place] # (Auto) Eos # (Auto) Baso # (Auto) Abs Immat Gran (auto) Absolute Neuts (auto) Absolute Nucleated RBC Nucleated RBC % (auto) PT 18.9 H INR 1.6 H O2 Saturation ABG pH at Pt Temp ABG pH (Temp Correct) ABG pCO2 at Pt Temp ABG pCO2 (Temp Corrct ABG pO2 at Pt Temp ABG pO2 (Temp Correct ABG HCO3 ABG Base Excess (Actual) Anion Gap Estim Creat Clear Calc Estimated GFR Random Glucose Lactic Acid Calcium Total Bilirubin Direct Bilirubin AST ALT Alkaline Phosphatase Troponin I High Sens B-Natriuretic Peptide Total Protein Albumin Lipase Urine Color Urine Appearance Urine pH Ur Specific [place] Urine Protein Urine Glucose (UA) Urine Ketones Urine Blood Urine Nitrite Ur Leukocyte Esterase Urine RBC Urine WBC Ur Squamous Epith Cells Urine Bacteria Influenza Type A (PCR) Influenza Type B (PCR) RSV RNA Qual (PCR) SARS-CoV-2 RNA (RT-PCR) Assessment and Plan (1) Asthma with exacerbation: Status: Acute Assessment and Plan: 76M presented with weakness, found to have hypoxia and flu A acute hypoxic respiratory failure due to flu A complicated by acute decompensation of copd and ILD solumedrol, nebs, azithro, tamiflu dc rocpehin - doubt bacterial pneumonia follow up pulm wean o2 as tolerated RA hold humira, mtx CAD coumadin, statin htn norvasc, lopressor paroxysmal atrial fibrillation currently in sinus continue lopressor, coumadin monitor INR, goal 2-3 NACHO resolved Quality Stroke Does the patient have a stroke diagnosis?: No VTE Prior VTE?: No VTE Risk Level:: Medical - moderate - high VTE Device Contraindication: N/A - Device Ordered VTE Drug Contraindication: N/A - Med Ordered
--- NOTE | 2021-11-21 11:16 | PC.NURSE ---
This RN called pharmacy to verify if and when Tamiflu 30mg would be down to administer. RN made aware by pharmacy that the medication was loaded in the pyxis without any notification made to staff. Tamiflu has not yet been administered due to RN not knowing it was on the unit.
[2021-11-21] MEDS: Oseltamivir Phosphate 30 MG CAPSULE PO ×2 (11:27→19:35)
[2021-11-21] MEDS: 0.9 % Sodium Chloride Flush 3 ML SYRINGE IVFLUSH ×2 (17:34→19:35)
[2021-11-21] MEDS: Warfarin Sodium 5 MG TABLET PO (19:34)
[2021-11-21] MEDS: Atorvastatin Calcium 20 MG TABLET PO (19:34)
[2021-11-21] MEDS: methylPREDNISolone Sod Succ 40 MG/ML VIAL 60 MG IVPUSH (19:36)
[2021-11-21] MEDS: Azithromycin 500 MG TABLET PO (21:45)
[2021-11-22] VITALS (12 sets, daily range): BP systolic 121–148; BP diastolic 59–81; PULSE 58–97; RESP 16–22; TEMP 36.3–36.8; O2SAT 91–94
[2021-11-22] MEDS: methylPREDNISolone Sod Succ 40 MG/ML VIAL 60 MG IVPUSH ×2 (05:31→17:27)
[2021-11-22 07:12] LABS: Hematocrit 42.9 % (42.0-52.0); Hemoglobin 14.3 g/dl (14.0-18.0); Mean Corpuscular HGB Conc 33.3 g/dl (31.0-36.0); Mean Corpuscular Hemoglobin 31.3 pg (27.0-33.0); Mean Corpuscular Volume 93.9 fL (80.0-98.0); Platelet Count 178 X10*3/uL (160-400); Red Blood Count 4.57 X10*6/uL (4.60-5.80); Red Cell Distribution Width 14.1 % (11.0-16.0); White Blood Count 12.8 X10*3/uL (4.8-10.8)
[2021-11-22 07:16] LABS: INTERNATIONAL NORM RATIO 1.8 (0.9-1.1); Prothrombin Time 21.1 SEC (9.9-13.0)
[2021-11-22] MEDS: Albuterol/Iprat 2.5/0.5MG 3 ML AMPUL.NEB INHALE ×4 (07:33→19:36)
[2021-11-22 07:36] LABS: Anion Gap 13 (12-20); Blood Urea Nitrogen 32 mg/dL (9-16); Calcium 9.4 mg/dL (8.4-10.2); Carbon Dioxide 25 mmol/L (22-29); Chloride 98 mmol/L (96-108); Estimated Glomerular Filt Rate 56; Glucose Fasting 125 mg/dL (60-99); Potassium 5.2 mmol/L (3.3-5.1); Sodium 131 mmol/L (135-145)
--- NOTE | 2021-11-22 09:47 | HO.PM.IMPN ---
Subjective Subjective Date of Service: 11/22/21 Interval History: ?cC: weakness interval history: wants to go home, but still hypoxic Respiratory Respiratory: Reports no additional respiratory complaints Gastrointestinal Gastrointestinal: Reports no additional gastrointestinal complaints Physical Exam Vital Signs: Vital Signs: Last Vital Signs Temp 97.3 F 11/22/21 08:00 Pulse 82 11/22/21 08:00 Resp 18 11/22/21 08:00 BP 136/66 11/22/21 08:00 Pulse Ox 93 11/22/21 08:00 BMI result Body Mass Index 27.8 General: AO X 3, no acute distress Resp: diminished bilateral, no accessory muscles used CVS: S1,S2,RRR GI: soft, non tender, non distended Neuro:? motor grossly intact, alert Psych: appropriate affect, appropriate insight? Objective Data Active Medications Acetaminophen (Acetaminophen 325 Mg Tablet) 650 mg PO Q6H PRN PRN Reason: Pain, Mild (Pain Scale 1-3) Albuterol Sulfate (Albuterol Sulfate (0.083%) 2.5 Mg/3 Ml Vial.Neb) 2.5 mg INHALE Q2H PRN PRN Reason: Shortness of Breath/Wheezing Albuterol/Ipratropium (Albuterol/Iprat 2.5/0.5mg 3 Ml Ampul.Neb) 3 ml INHALE RQ4H WHILE AWAKE [facility] Last Admin: 11/22/21 07:33 Dose: 3 ml Documented by: MORA Amlodipine Besylate (Amlodipine Besylate 5 Mg Tablet) 5 mg PO DAILY [facility]; Protocol Last Admin: 11/21/21 09:28 Dose: 5 mg Documented by: AMADOU Atorvastatin Calcium (Atorvastatin Calcium 20 Mg Tablet) 20 mg PO BEDTIME [facility] Last Admin: 11/21/21 19:34 Dose: 20 mg Documented by: JUSTIN Azithromycin (Azithromycin 500 Mg Tablet) 500 mg PO Q24H [facility] Last Admin: 11/21/21 21:45 Dose: 500 mg Documented by: ANDRES Folic Acid (Folic Acid 1 Mg Tablet) 1 mg PO DAILY [facility] Last Admin: 11/21/21 09:58 Dose: 1 mg Documented by: AMADOU Melatonin (Melatonin 3 Mg Tablet) 6 mg PO BEDTIME PRN PRN Reason: Insomnia Methylprednisolone Sodium Succinate (Methylprednisolone Sod Succ 40 Mg/Ml Vial) 60 mg IVPUSH Q12H [facility] Last Admin: 11/22/21 05:31 Dose: 60 mg Documented by: ANDRES Metoprolol Tartrate (Metoprolol Tartrate 50 Mg Tablet) 50 mg PO BID [facility]; Protocol Last Admin: 11/21/21 19:35 Dose: 50 mg Documented by: JUSTIN Omeprazole (Omeprazole 20 Mg Capsule.Dr) 20 mg PO DAILY [facility] Last Admin: 11/21/21 09:28 Dose: 20 mg Documented by: AMADOU Oseltamivir Phosphate (Oseltamivir Phosphate 30 Mg Capsule) 30 mg PO Q12H [facility] Stop: 11/25/21 21:01 Last Admin: 11/21/21 19:35 Dose: 30 mg Documented by: JUSTIN Senna (Sennosides 8.6 Mg Tablet) 17.2 mg PO BEDTIME PRN PRN Reason: Constipation Sodium Chloride (0.9 % Sodium Chloride Flush 3 Ml Syringe) 3 ml IVFLUSH QSHIFT [facility] Last Admin: 11/21/21 19:35 Dose: 3 ml Documented by: JUSTIN Tramadol HCl (Tramadol Hcl 50 Mg Tablet) 50 mg PO BID PRN PRN Reason: Pain, Moderate Warfarin Sodium (Warfarin Sodium 6 Mg Tablet) 6 mg PO DAILY@1800 [facility] Labs CBC & Chem 7: 11/22/21 06:33 11/22/21 06:33 Labs: Laboratory Results - last 24 hr 11/22/21 11/22/21 11/22/21 06:33 06:33 06:33 MCV 93.9 MCH 31.3 MCHC 33.3 RDW 14.1 Plt Count 178 MPV 11.0 Absolute Nucleated RBC 0.000 Nucleated RBC % (auto) 0.0 PT 21.1 H INR 1.8 H Anion Gap 13 Estim Creat Clear Calc 57.0 Estimated GFR 56 Fasting Glucose 125 H Calcium 9.4 Microbiology Microbiology Results: Microbiology 11/20/21 21:05 Blood Culture - Preliminary Blood - Venous No growth after 24 hours. 11/20/21 20:48 Blood Culture - Preliminary Blood - Venous No growth after 24 hours. Assessment and Plan (1) Asthma with exacerbation: Status: Acute Assessment and Plan: 76M presented with weakness, found to have hypoxia and flu A acute hypoxic respiratory failure due to flu A complicated by acute decompensation of copd and ILD solumedrol, nebs, azithro, tamiflu follow up pulm wean o2 as tolerated RA hold humira, mtx CAD coumadin, statin htn norvasc, lopressor paroxysmal atrial fibrillation currently in sinus continue lopressor, coumadin monitor INR, goal 2-3 NACHO resolved Quality Stroke Does the patient have a stroke diagnosis?: No VTE Prior VTE?: No VTE Risk Level:: Medical - moderate - high VTE Device Contraindication: N/A - Device Ordered VTE Drug Contraindication: N/A - Med Ordered
[2021-11-22] MEDS: Folic Acid 1 MG TABLET PO (09:54)
[2021-11-22] MEDS: Oseltamivir Phosphate 30 MG CAPSULE PO ×2 (09:54→20:41)
[2021-11-22] MEDS: 0.9 % Sodium Chloride Flush 3 ML SYRINGE IVFLUSH ×3 (09:54→20:41)
[2021-11-22] MEDS: Metoprolol Tartrate 50 MG TABLET PO ×2 (09:54→20:41)
[2021-11-22] MEDS: amLODIPine Besylate 5 MG TABLET PO (09:54)
[2021-11-22] MEDS: Omeprazole 20 MG CAPSULE.DR PO (09:54)
--- NOTE | 2021-11-22 14:07 | MHC.CM.PN ---
CM MET WITH PT WHO REPORTS HE LIVES AT HOME WITH HIS AND IS INDEPENDENT WITH CARE PT DENIES USE OF DME OR HOME/COMMUNITY SERVICES PT DOES NOT HAVE A HCP AND DECLINES TO COMPLETE ONE TODAY PT CONFIRMS HIS PCP IS TAM MCCARTHY DELIVERED CURRENT DC PLAN IS HOME, NO SERVICES FAMILY TO TRANSPORT
[2021-11-22] MEDS: Warfarin Sodium 6 MG TABLET PO (17:27)
[2021-11-22] MEDS: Azithromycin 500 MG TABLET PO (20:40)
[2021-11-22] MEDS: Atorvastatin Calcium 20 MG TABLET PO (20:41)
--- NOTE | 2021-11-22 21:34 | PM.CNPUL ---
History of Present Illness History of Present Illness Consult date: 11/22/21 Chief complaint: SOB Narrative: This is an in patient pulmonary consultation. The patient is a 76-year-old male with a past medical history of hypertension, hyperlipidemia, CAD, history of MD, rheumatoid arthritis,former smoker presented to the hospital with a chief complaint of shortness of breath. The patient reported that over the past 3 days he has been having cough and shortness of breath; presented with sputum production. +sick contacts. EMS patient was noted to be 70% on room air and placed on oxygen. In the ER patient desaturated to high 80s; admitted to the hospital for further management.?+infulenza A. I personally reviewed his CT chest with emphysema, basilar pulmonary fibrosis and lymphadenopathy. Likely has a superimposed pneumonitis from the influenza. Placed on Tamiflu, antibiotics and solumedrol. He is feeling better. Review of Systems Constitutional: Constitutional: Denies night sweats ENT: Denies change in voice, Denies lip swelling, Denies mouth pain, Reports nasal congestion, Reports nasal discharge and Denies tongue swelling Cardiovascular: Cardiovascular: Denies chest pain and Reports dyspnea Respiratory: Respiratory: Reports chest congestion, Reports cough, Denies hemoptysis, Reports dyspnea and Reports wheezing Gastrointestinal: Gastrointestinal: Denies abdominal pain Musculoskeletal: Musculoskeletal: Denies no additional musculoskeletal complaints Neurologic: Denies Neuro-related abnormal movements Psychiatric: Psychiatric: Denies no additional psychiatric complaints Hematologic/Lymphatic: Hematologic/Lymphatic: Denies easy bleeding and Denies lymphadenopathy Allergic/Immunologic: Allergic/Immunologic: Denies lip swelling, Denies tongue swelling and Reports wheezing PMFSH Past Medical History Medical History (Updated 11/22/21 @ 21:43 by Shon Samson MD) COPD exacerbation ILD (interstitial lung disease) Lymphadenopathy Social History Social History Household Members: Spouse Housing: Apartment Do you presently have visiting nurse or other home services: No Patient Tobacco Use Status: Former Tobacco user service: No Current occupational status: retired [employer] Allergies Allergy/AdvReac Type Severity Reaction Status Date / Time No Known Allergies Allergy Unknown NOT Verified 11/21/21 19:48 APPLICABLE Active Medications: Current Medications Acetaminophen (Acetaminophen 325 Mg Tablet) 650 mg PO Q6H PRN PRN Reason: Pain, Mild (Pain Scale 1-3) Albuterol Sulfate (Albuterol Sulfate (0.083%) 2.5 Mg/3 Ml Vial.Neb) 2.5 mg INHALE Q2H PRN PRN Reason: Shortness of Breath/Wheezing Albuterol/Ipratropium (Albuterol/Iprat 2.5/0.5mg 3 Ml Ampul.Neb) 3 ml INHALE RQ4H WHILE AWAKE [facility] Last Admin: 11/22/21 19:36 Dose: 3 ml Documented by: Amlodipine Besylate (Amlodipine Besylate 5 Mg Tablet) 5 mg PO DAILY [facility]; Protocol Last Admin: 11/22/21 09:54 Dose: 5 mg Documented by: Atorvastatin Calcium (Atorvastatin Calcium 20 Mg Tablet) 20 mg PO BEDTIME [facility] Last Admin: 11/22/21 20:41 Dose: 20 mg Documented by: Azithromycin (Azithromycin 500 Mg Tablet) 500 mg PO Q24H [facility] Last Admin: 11/22/21 20:40 Dose: 500 mg Documented by: Folic Acid (Folic Acid 1 Mg Tablet) 1 mg PO DAILY [facility] Last Admin: 11/22/21 09:54 Dose: 1 mg Documented by: Melatonin (Melatonin 3 Mg Tablet) 6 mg PO BEDTIME PRN PRN Reason: Insomnia Methylprednisolone Sodium Succinate (Methylprednisolone Sod Succ 40 Mg/Ml Vial) 60 mg IVPUSH Q12H [facility] Last Admin: 11/22/21 17:27 Dose: 60 mg Documented by: Metoprolol Tartrate (Metoprolol Tartrate 50 Mg Tablet) 50 mg PO BID [facility]; Protocol Last Admin: 11/22/21 20:41 Dose: 50 mg Documented by: Omeprazole (Omeprazole 20 Mg Capsule.) 20 mg PO DAILY [facility] Last Admin: 11/22/21 09:54 Dose: 20 mg Documented by: Oseltamivir Phosphate (Oseltamivir Phosphate 30 Mg Capsule) 30 mg PO Q12H [facility] Stop: 11/25/21 21:01 Last Admin: 11/22/21 20:41 Dose: 30 mg Documented by: Senna (Sennosides 8.6 Mg Tablet) 17.2 mg PO BEDTIME PRN PRN Reason: Constipation Sodium Chloride (0.9 % Sodium Chloride Flush 3 Ml Syringe) 3 ml IVFLUSH QSHIFT [facility] Last Admin: 11/22/21 20:41 Dose: 3 ml Documented by: Timolol Maleate (Timolol Maleate 0.5 % Oph Kylah 5 Ml Drbtl) 1 drop EYE-BOTH DAILY [facility] Last Admin: 11/22/21 17:33 Dose: Not Given Documented by: Tramadol HCl (Tramadol Hcl 50 Mg Tablet) 50 mg PO BID PRN PRN Reason: Pain, Moderate Warfarin Sodium (Warfarin Sodium 6 Mg Tablet) 6 mg PO DAILY@1800 [facility] Last Admin: 11/22/21 17:27 Dose: 6 mg Documented by: Home Medications Medication Instructions Recorded Confirmed Last Taken Type adalimumab 40 mg/0.4 mL 40 mg SUBCUT Q2W 11/20/21 11/21/21 11/13/21 History subcutaneous pen kit (Humira(CF) Pen) amlodipine 5 mg tablet 1 tab PO DAILY 11/20/21 11/20/21 Unknown History folic acid 400 mcg tablet 40 mcg PO BID 11/20/21 11/21/21 Unknown History hydrochlorothiazide 25 mg tablet 1 tab PO DAILY 11/20/21 11/20/21 Unknown History losartan 100 mg tablet 1 tab PO DAILY 11/20/21 11/20/21 Unknown History methotrexate sodium 2.5 mg tablet 5 tab PO QWEEK 11/20/21 11/20/21 Unknown History metoprolol tartrate 50 mg tablet 1 tab PO BID 11/20/21 11/20/21 Unknown History omeprazole 20 mg capsule,delayed 1 cap PO DAILY 11/20/21 11/20/21 Unknown History release rosuvastatin 10 mg tablet 1 tab PO BEDTIME 11/20/21 11/20/21 Unknown History timolol maleate 0.5 % eye drops drp OPHTHALMIC (EYE) 11/20/21 11/20/21 Unknown History tramadol 50 mg tablet 1 tab PO BID PRN 11/20/21 11/20/21 Unknown History warfarin 5 mg tablet 1 tab PO DAILY 11/20/21 11/20/21 Unknown History Physical Exam Vital Signs: Vital Signs: Last Vital Signs Temp 98 F 11/22/21 18:56 Pulse 97 11/22/21 20:41 Resp 16 11/22/21 19:37 BP 148/67 H 11/22/21 20:41 Pulse Ox 91 L 11/22/21 18:56 BMI result Body Mass Index 27.8 Const: General: alert Neck: Neck: Yes normal visual inspection, Yes full ROM and Yes no lymphadenopathy Chest: Chest palpation & inspection: normal inspection of the chest Resp: Auscultation: rhonchi and diminished lung sounds Cardio: Rate: regular rate Rhythm: regular rhythm Heart sounds: S1 normal heart sound present and S2 normal heart sound present GI: Palpation (GI): Soft to palpation and nontender Auscultation: normal bowel sounds Skin: General skin exam: rashes and/or lesions noted Results Laboratory Findings CBC and BMP: 11/22/21 06:33 11/22/21 06:33 ABG, PT/INR, D-dimer: PT/INR, D-dimer PT 21.1 SEC (9.9-13.0) H 11/22/21 06:33 INR 1.8 (0.9-1.1) H 11/22/21 06:33 Abnormal lab findings: Abnormal Labs 11/20/21 11/20/21 11/20/21 20:22 20:48 20:48 WBC RBC Plt Count 146 L Immature Gran % (Auto) Neut % (Auto) [place] % (Auto) 11.2 H Lymph # (Auto) PT INR ABG pH at Pt Temp 7.48 H ABG pH (Temp Correct) 7.47 H Sodium 128 L Potassium Chloride 93 L BUN 20 H Creatinine 1.47 H Random Glucose Fasting Glucose B-Natriuretic Peptide Total Protein 9.0 H Influenza Type A (PCR) 11/20/21 11/20/21 11/21/21 20:48 20:48 00:22 WBC RBC Plt Count Immature Gran % (Auto) Neut % (Auto) [place] % (Auto) Lymph # (Auto) PT 21.0 H INR 1.8 H ABG pH at Pt Temp ABG pH (Temp Correct) Sodium Potassium Chloride BUN Creatinine Random Glucose Fasting Glucose B-Natriuretic Peptide 140 H Total Protein Influenza Type A (PCR) POSITIVE A 11/21/21 11/21/21 11/21/21 08:11 08:11 08:12 WBC 4.2 L RBC Plt Count 156 L Immature Gran % (Auto) 0.5 H Neut % (Auto) 73.1 H [place] % (Auto) Lymph # (Auto) 1.0 L PT 18.9 H INR 1.6 H ABG pH at Pt Temp ABG pH (Temp Correct) Sodium 132 L Potassium Chloride BUN 20 H Creatinine Random Glucose 173 H D Fasting Glucose B-Natriuretic Peptide Total Protein Influenza Type A (PCR) 11/22/21 11/22/21 11/22/21 06:33 06:33 06:33 WBC 12.8 H RBC 4.57 L Plt Count Immature Gran % (Auto) Neut % (Auto) [place] % (Auto) Lymph # (Auto) PT 21.1 H INR 1.8 H ABG pH at Pt Temp ABG pH (Temp Correct) Sodium 131 L Potassium 5.2 H Chloride BUN 32 H D Creatinine Random Glucose Fasting Glucose 125 H B-Natriuretic Peptide Total Protein Influenza Type A (PCR) Microbiology: Microbiology 11/20/21 21:05 Blood - Venous Blood Culture - Preliminary No growth after 24 hours. 11/20/21 20:48 Blood - Venous Blood Culture - Preliminary No growth after 24 hours. Assessment and Plan (1) COPD exacerbation: Status: Acute (2) Influenza A: Status: Acute (3) ILD (interstitial lung disease): Status: Acute (4) Lymphadenopathy: Status: Acute start Breo JORGITO as needed Prednisone taper complete 8 days of antibiotics oxygen eval will need outpt follow up Procedures Date of Service Date of Service: 11/22/21
[2021-11-22] MEDS: traMADoL HCL 50 MG TABLET PO (23:18)
[2021-11-23] VITALS (7 sets, daily range): BP systolic 132–152; BP diastolic 64–70; PULSE 58–73; RESP 17–20; TEMP 36–37.2; O2SAT 87–94
[2021-11-23] MEDS: methylPREDNISolone Sod Succ 40 MG/ML VIAL 60 MG IVPUSH (05:31)
[2021-11-23 07:29] LABS: Hematocrit 43.9 % (42.0-52.0); Hemoglobin 14.7 g/dl (14.0-18.0); Mean Corpuscular HGB Conc 33.5 g/dl (31.0-36.0); Mean Corpuscular Hemoglobin 31.1 pg (27.0-33.0); Mean Corpuscular Volume 92.8 fL (80.0-98.0); Mean Platelet Volume 10.8 fL (9.4-12.4); Platelet Count 217 X10*3/uL (160-400); Red Blood Count 4.73 X10*6/uL (4.60-5.80); Red Cell Distribution Width 14.2 % (11.0-16.0); White Blood Count 20.2 X10*3/uL (4.8-10.8)
[2021-11-23] MEDS: Fluticasone/Vilanterol 200/25 BLST.W.DEV 1 PUFF INHALE (07:44)
[2021-11-23] MEDS: Albuterol/Iprat 2.5/0.5MG 3 ML AMPUL.NEB INHALE ×2 (07:44→11:15)
[2021-11-23 07:50] LABS: Anion Gap 16 (12-20); Blood Urea Nitrogen 40 mg/dL (9-16); Calcium 9.3 mg/dL (8.4-10.2); Carbon Dioxide 21 mmol/L (22-29); Chloride 97 mmol/L (96-108); Creatinine Clr Calc Pharmacy 60.4; Estimated Glomerular Filt Rate 60; Glucose Fasting 126 mg/dL (60-99); Potassium 4.8 mmol/L (3.3-5.1); Sodium 129 mmol/L (135-145)
[2021-11-23] MEDS: Folic Acid 1 MG TABLET PO (08:07)
[2021-11-23] MEDS: Oseltamivir Phosphate 30 MG CAPSULE PO (08:07)
[2021-11-23] MEDS: 0.9 % Sodium Chloride Flush 3 ML SYRINGE IVFLUSH (08:07)
[2021-11-23] MEDS: Metoprolol Tartrate 50 MG TABLET PO (08:08)
[2021-11-23] MEDS: Omeprazole 20 MG CAPSULE.DR PO (08:08)
[2021-11-23] MEDS: amLODIPine Besylate 5 MG TABLET PO (08:08)
[2021-11-23] MEDS: timoloL maleate 0.5 % Oph Sol 5 ML DRBTL 1 DROP EYE-BOTH (08:09)
[2021-11-23 08:54] LABS: INTERNATIONAL NORM RATIO 2.5 (0.9-1.1); Prothrombin Time 29.2 SEC (9.9-13.0)
--- NOTE | 2021-11-23 11:52 | PM.DS ---
DS: Providers Provider Date of Service: 11/23/21 Date of admission: 11/20/21 22:59 Primary care physician: Moris Machado MD Consults: 11/21/21 00:22 Consult to Pulmonology Routine Consulting Provider: Lance Sidhu Reason for consultation: COPD/ILD/?pulm fibrosis DS: Diagnosis Discharge Diagnosis (1) COPD exacerbation: Status: Acute (2) Influenza A: Status: Acute (3) ILD (interstitial lung disease): Status: Acute (4) Lymphadenopathy: Status: Acute DS: Summary Hospital Course Hospital Course: patient was admitted for acute hypoxic respiratory failure due to flu A complicated by acute decompensation of COPD and ILD. he was treated with steroids, azithromycin, bronchodilators, tamiflu. symptoms significantly improved, however, he was unable to be weaned off oxygen, this is likely due to underlying chronic hypoxic respiratory failure. he was evaluated for home O2 and deemed to require 2L at rest and 3L on exertion. patient will be discharged home. Time Spent with Patient Time attestation: Total time spent providing and/or coordinating discharge services: Discharge coordination time: Greater than 30 minutes Quality: Stroke Does the patient have a stroke diagnosis?: No Physical Exam Vital Signs: Vital Signs: Last Vital Signs Temp 96.8 F 11/23/21 11:21 Pulse 73 11/23/21 11:21 Resp 17 11/23/21 11:21 BP 152/70 H 11/23/21 11:21 Pulse Ox 88 L 11/23/21 11:21 BMI result Body Mass Index 27.8 General: AO X 3, no acute distress Resp: CTA bilateral, no accessory muscles used CVS: S1,S2,RRR GI: soft, non tender, non distended Neuro: motor grossly intact, alert Psych: appropriate affect, appropriate insight DS: Data Data Completed and Pending Labs on day of discharge: Laboratory Results - last 24 hr 11/23/21 11/23/21 11/23/21 06:50 06:50 08:05 WBC 20.2 H RBC 4.73 Hgb 14.7 Hct 43.9 MCV 92.8 MCH 31.1 MCHC 33.5 RDW 14.2 Plt Count 217 MPV 10.8 Absolute Nucleated RBC 0.000 Nucleated RBC % (auto) 0.0 PT 29.2 H INR 2.5 H Sodium 129 L Potassium 4.8 Chloride 97 Carbon Dioxide 21 L Anion Gap 16 BUN 40 H Creatinine 1.18 Estim Creat Clear Calc 60.4 Estimated GFR 60 Fasting Glucose 126 H Calcium 9.3 Preliminary micro results at discharge 11/20/21 21:05 Blood Culture - Preliminary Blood - Venous No growth after 48 hours. 11/20/21 20:48 Blood Culture - Preliminary Blood - Venous No growth after 48 hours. Discharge Plan Discharge Patient Disposition: Home, Self-Care Discharge Diagnosis: flu Referrals: Moris Machado MD [Primary Care Provider] - 1 Week Discharge Medications: New timolol maleate 0.5 % Drops 1 drp ophthalmic (eye) DAILY Qty: 0 RF: 0 azithromycin 500 mg Tablet 500 mg PO Q24H Qty: 5 RF: 0 oseltamivir 30 mg Capsule 30 mg PO Q12H Qty: 5 RF: 0 Breo Ellipta 200-25 mcg/dose Blister With Device 1 puff inhalation RDAILY Qty: 1 RF: 0 prednisone 20 mg tablet 40 mg PO DAILY Qty: 10 RF: 0 Continued amlodipine 5 mg tablet 1 tab PO DAILY RF: 0 folic acid 400 mcg tablet 40 mcg PO BID RF: 0 tramadol 50 mg tablet 1 tab PO BID PRN (Reason: Pain, Moderate) RF: 0 methotrexate sodium 2.5 mg tablet 5 tab PO QWEEK RF: 0 warfarin 5 mg tablet 1 tab PO DAILY RF: 0 metoprolol tartrate 50 mg tablet 1 tab PO BID RF: 0 omeprazole 20 mg capsule,delayed release(DR/EC) 1 cap PO DAILY RF: 0 hydrochlorothiazide 25 mg tablet 1 tab PO DAILY RF: 0 timolol maleate 0.5 % drops ophthalmic (eye) RF: 0 losartan 100 mg tablet 1 tab PO DAILY RF: 0 rosuvastatin 10 mg tablet 1 tab PO BEDTIME RF: 0 Humira(CF) Pen 40 mg/0.4 mL pen injector kit 40 mg subcut Q2W RF: 0 Discharge Orders: Discharge Order (Routine); Ordered 11/23/21 Ordered By: Suhail Murphy Diet: advance to usual diet Activity on Discharge: As tolerated Stand Alone Forms: Patient Portal Discharge page Care Plan Goals: recovery Health Concerns: flu, copd Plan of Treatment: 5 more days azithro, prednisone, 5 more doses tamiflu, home o2, 2L at rest 3L on exertion Assessment: see above
--- NOTE | 2021-11-23 11:54 | MHC.CM.PN ---
pt dcdhome no servceis ordered by
== END 2021-11-23 13:30 | disposition home or self-care (01) | DRG 190 ==
LOC: HO.ED 23:07 → HO.EDOVER 23:44 → HO.IMC 11-21 17:56
PROVIDERS: Admitting Provider Hospitalist; Emergency Provider Emergency Medicine; PCP Internal Medicine; Visit Provider Internal Medicine
DX: J44.1 Chronic obstructive pulmonary disease with (acute) exacerbation (principal); J96.21 Acute and chronic respiratory failure with hypoxia; J45.31 Mild persistent asthma with (acute) exacerbation; J84.9 Interstitial pulmonary disease, unspecified; E87.1 Hypo-osmolality and hyponatremia; N17.9 Acute kidney failure, unspecified; M06.9 Rheumatoid arthritis, unspecified; J10.1 Influenza due to other identified influenza virus with other respiratory manifestations; I48.0 Paroxysmal atrial fibrillation; I25.10 Atherosclerotic heart disease of native coronary artery without angina pectoris; I25.2 Old myocardial infarction; Z20.822 Contact with and (suspected) exposure to COVID-19; Z87.891 Personal history of nicotine dependence; Z79.51 Long term (current) use of inhaled steroids; Z79.01 Long term (current) use of anticoagulants; Z79.899 Other long term (current) drug therapy
CPT/HCPCS: 0241U; 36415; 71045; 71250; 80048; 80076; 81001; 82803; 83605; 83690; 83880; 84484; 85025; 85027; 85610; 87040; 93005; 94640; 94644; 99285; J0696; J2920; J2930; J3475

== ENCOUNTER 2023-04-18 10:19 | Inpatient (IN) | payer MEDICARE, MEDICAID, SELFPAY ==
--- NOTE | ~2023-04-18 | XR_ITS ---
EXAMINATION: XR CHEST CLINICAL INFORMATION: Hypoxia. COMPARISON: Chest radiograph 04/18/2023, CT chest 11/20/2021. Chest radiograph 11/20/2021. TECHNIQUE: Frontal view of the chest was obtained. FINDINGS: Normal appearance of the cardiomediastinal structures. No effusions or pneumothoraces. Marked attenuation of the upper lung zone pulmonary parenchyma is again noted along with bibasilar prominently peripheral coarse and medium reticular opacities corresponding to subpleural fibrotic changes visualized to better advantage on the comparison CT of 11/20/2021. No focal pulmonary consolidation identified. Partial visualization of moderate multilevel endplate osteophytosis of the thoracic spine. XR/XR chest 1V IMPRESSION: 1. No acute cardiopulmonary abnormalities identified. 2. Centrilobular emphysema and chronic interstitial disease of the lungs, both grossly unchanged compared with 11/20/2021. Subpleural fibrotic changes of the lungs are present and are suspicious for idiopathic pulmonary fibrosis as previously suggested on CT of the chest 11/20/2021.
--- NOTE | ~2023-04-18 | XR_ITS ---
EXAMINATION: XR CHEST CLINICAL INFORMATION: Shortness of breath COMPARISON: Previous chest x-ray and chest CT October 2021 TECHNIQUE: Frontal view of the chest was obtained. FINDINGS: The cardiac and mediastinal contours are stable. There are increased interstitial markings seen at the lung bases suggestive of interstitial lung disease. This is similar to previous exams. There is linear scarring or chronic subsegmental atelectasis that is unchanged. No pleural effusion or pneumothorax. Degenerative changes of the spine. XR/XR chest 1V IMPRESSION: No evidence for acute disease in the chest. Interstitial lung disease and bilateral linear scarring or chronic subsegmental atelectasis in the lingula to previous exams.
--- NOTE | 2023-04-18 07:00 | CA_ITS ---
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 The calculated ejection fraction is 65% by biplane method. - Moderately increased right ventricular cavity size. There is normal right ventricular systolic function. - There is mild tricuspid valve regurgitation. - Moderate pulmonary hypertension is present. Findings Procedure Information Contrast agent, definity, is being given per protocol without apparent complications. Left Ventricle Normal left ventricular cavity size. There is normal left ventricular wall thickness. The left ventricular systolic function is normal. The calculated ejection fraction is 65% by biplane method. There is no evidence of regional wall motion abnormalities. Diastolic function is normal for age. E/E prime ratio is <8, consistent with normal filling pressures. Right Ventricle Moderately increased right ventricular cavity size. There is normal right ventricular systolic function. Atria Both atria are normal in size. Aortic Valve The aortic valve was not well visualized. There is mild calcification of the aortic valve. There is no aortic valve stenosis. There is no aortic valve regurgitation. Mitral Valve The mitral valve appears normal. There is trace mitral valve regurgitation. There is no mitral valve stenosis. Pulmonic Valve The pulmonic valve is likely normal. Tricuspid Valve Normal tricuspid valve structure. There is mild tricuspid valve regurgitation. The right ventricular systolic pressure is 66 mmHg. Moderate pulmonary hypertension is present. Great Vessels The asc aorta is normal in size. Venous The inferior vena cava is mildly dilated and collapses less than 50% with inspiration. Pericardium/Pleural There is no evidence of pericardial effusion. Prior Study Comparison Changes noted compared to prior study dated: 12/11/2008. Increase in RV size; increase in RVSP. Measurements 2D Linear Measurements Ao Root: 3.20 2.1-3.5 cm LVOT Diam: 2.00 3.0+(-)1.3 cm 2D Systolic Function EF 4C: 73.40 >55% EF 2C: 59.60 >55% EF BiP: 65.30 >55% Mitral Valve MV Pk E: 0.53 MV PK A: 0.73 MV Decel Time: 204.00 E/A: 0.70 E'Lateral: 8.92 E'Medial: 4.90 E/E' Med: 10.80 E/E' Lat: 5.90 PHT: 60.00 MVA PHT: 3.67 Decel [place]: 2.58 Aortic Valve AoV Pk Timmy: 1.37 AoV Mn Timmy: 0.82 AoV VTI: 0.30 AoV Pk Grad: 8.00 Aov Mn Grad: 3.00 JUAN Cont.VTI: 2.53 LVOT LVOT Pk Timmy: 1.17 LVOT Mn Timmy: 0.77 LVOT VTI: 0.24 LVOT Pk Grad: 5.00 LVOT Mn Grad: 3.00 LVOT Diam: 2.00 LVOT Area: 3.14 Diastolic Function MV Pk E: 0.53 MV Pk A: 0.73 E/A: 0.70 E'Medial: 4.90 E/E' Med: 10.80 E' Laterial: 8.92 E/E' Lat: 5.90 Right Ventricle TAPSE (mm): 19.00 TVS' Timmy: 9.00 Tricuspid Valve TR Pk Timmy: 3.57 TR Pk Grad: 51.00 RA Press: 15.00 RVSP: 66.00 Great Vessels Aorta Ao Root-2D: 3.20 2.0-3.7 cm Ao Asc: 3.40 2.1-3.4 cm Pulmonary Valve PV Pk Timmy: 0.79 Peak PV Grad: 2.00 Updated in Other Vendor System with Status of Final Baltazar Vasquez MD electronically signed on 04/19/2023 11:57:05 AM with status of Final
--- NOTE | 2023-04-18 10:28 | ECG_ITS ---
Test Reason : soib Blood Pressure : / mmHG Vent. Rate : 070 BPM Atrial Rate : 070 BPM P-R Int : 138 ms QRS Dur : 092 ms QT Int : 404 ms P-R-T Axes : 070 044 -07 degrees QTc Int : 436 ms Sinus rhythm with Premature atrial complexes Possible Lateral infarct (cited on or before 08-JAN-2009) Abnormal ECG When compared with ECG of 20-NOV-2021 22:16, Premature atrial complexes are now Present Questionable change in initial forces of Lateral leads T wave inversion now evident in Inferior leads Nonspecific T wave abnormality now evident in Anterior leads Referred By: Kate Alberts Electronically Signed By:ANA SOLIS
[2023-04-18 10:34] VITALS: BP 128/92; PULSE 78; O2SAT 98
[2023-04-18 10:38] VITALS: BP 131/57; PULSE 73; RESP 26; TEMP 36.5; O2SAT 96; BMI 30.7
--- NOTE | 2023-04-18 10:51 | ED.SOB ---
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 He also endorses a mild dry cough, and white phelgm, but no other uri symptoms. He uses an albuterol inhaler frequently at home, and is on 2L of oxygen 20/06. He states he has been having increased SOB since he was started on prednione three months ago. He has been having worsening peripheral edema since. He is not on diuretics. He denies chest pain, palpitations, headache, and abdominal pain. He states he quit smoking 23 years ago. He is followed by pulmonolgy and cardiology. Patient was placed on increased oxygen, given 125 of Solu-Medrol and a DuoNeb. He was brought to the ER for further evaluation. MD elicited complaint: shortness of breath and cough Pertinent past history: COPD and asthma Onset (ago): day(s) (4) Context: occurred during exertion Timing: intermittent Severity: moderate Exacerbating factors: exertion, recent new medication and movement Known history of: COPD and asthma Associated symptoms: cough Treatment prior to arrival: oxygen Related Data Home oxygen amount: 2 liters Home Medications Medication Instructions Recorded Confirmed adalimumab 40 mg/0.4 mL 40 mg subcut Q2W 11/20/21 11/21/21 subcutaneous pen kit (Humira(CF) Pen) amlodipine 5 mg tablet 1 tab PO DAILY 11/20/21 11/20/21 folic acid 400 mcg tablet 40 mcg PO BID 11/20/21 11/21/21 hydrochlorothiazide 25 mg tablet 1 tab PO DAILY 11/20/21 11/20/21 losartan 100 mg tablet 1 tab PO DAILY 11/20/21 11/20/21 methotrexate sodium 2.5 mg tablet 5 tab PO QWEEK 11/20/21 11/20/21 metoprolol tartrate 50 mg tablet 1 tab PO BID 11/20/21 11/20/21 omeprazole 20 mg capsule,delayed 1 cap PO DAILY 11/20/21 11/20/21 release rosuvastatin 10 mg tablet 1 tab PO BEDTIME 11/20/21 11/20/21 timolol maleate 0.5 % eye drops drp ophthalmic (eye) 11/20/21 11/20/21 tramadol 50 mg tablet 1 tab PO BID PRN Pain, Moderate 11/20/21 11/20/21 warfarin 5 mg tablet 1 tab PO DAILY 11/20/21 11/20/21 Previous Rx's Medication Instructions Recorded azithromycin 500 mg tablet 500 mg PO Q24H #5 tabs 11/23/21 fluticasone furoate 200 1 puff inhalation RDAILY #1 ea 11/23/21 mcg-vilanterol 25 mcg/dose inhalation powder (Breo Ellipta) oseltamivir 30 mg capsule 30 mg PO Q12H #5 caps 11/23/21 prednisone 20 mg tablet 40 mg PO DAILY #10 tabs 11/23/21 timolol maleate 0.5 % eye drops 1 drp ophthalmic (eye) DAILY #0 mL 11/23/21 Allergies Allergy/AdvReac Type Severity Reaction Status Date / Time No Known Allergies Allergy Unknown NOT Verified 11/21/21 19:48 APPLICABLE Review of Systems Review of Systems: Yes all other systems are reviewed and are negative PMFSH Past Medical History Medical History (Updated 04/18/23 @ 13:06 by CONNIE Tang) COPD exacerbation ILD (interstitial lung disease) Lymphadenopathy Social History Social History Household Members: Spouse Housing: Apartment Do you presently have visiting nurse or other home services: No Alcohol intake: never Patient Tobacco Use Status: Former Tobacco user Smoked in Last 30 Days: No Use of substances other than those prescribed or required for medical reasons: No Advance Directives: Yes Advance Directives Information Provided: No Advance Directives on File: No service: No Current occupational status: retired Physical Exam Vital Signs: Vital Signs: Last Vital Signs Temp 97.7 F 04/18/23 10:38 Pulse 68 04/18/23 12:39 Resp 22 H 04/18/23 12:39 BP 131/57 L 04/18/23 10:38 Pulse Ox 96 04/18/23 10:38 O2 Del Method Oxymask 04/18/23 10:38 Oxygen Flow Rate 13 04/18/23 10:38 BMI result Body Mass Index 30.7 Appearance: Alert. Oriented X3. Mild respiratory distress. Head: normocephalic, atraumatic. Neck: Normal inspection. CVS: Normal heart rate and rhythm. Pulses normal. Respiratory: Diffuse wheezing throughout lung lopez, slight increased WOB. Skin: Skin warm and dry. Normal skin color. Normal skin turgor. No rashes. Extremities: Bilateral pitting edema 3+, with scrapes noted to the anterior lower legs Neuro/psych: Oriented X 3. No motor deficit. No sensory deficit. Normal speech and cognition. Course Reevaluation(s) Reevaluation #1: Slight improvement in wheezing and work of breathing after nebulizer treatment. BNP 900, ordered for 40 of Lasix. No echo on file. No history of heart failure and he is not on diuretics at home. His symptoms are most likely combination of acute heart failure and COPD exacerbation. Will check lactic acid, blood cultures given his COPD history although there is no evidence of acute infection at this time. Will start on doxycycline for COPD exacerbation. Will require admission. 2nd breathing treatment ordered Time: 12:25 Medications Administered Generic Name Dose Route Start Last Admin Trade Name Freq PRN Reason Stop Dose Admin Magnesium Sulfate 2 gm in 50 mls @ 25 mls/hr 04/18/23 11:20 04/18/23 11:35 Magnesium Sulfate/H2o IV 04/18/23 13:19 25 mls/hr ONCE ONE Administration Discontinued Medications Generic Name Dose Route Start Last Admin Trade Name Freq PRN Reason Stop Dose Admin Albuterol Sulfate 5 mg 04/18/23 10:44 04/18/23 11:06 Albuterol Sulfate (0.083%) 2.5 Mg/3 Ml Vial.Neb INHALE 04/18/23 10:45 5 mg ONCE ONE Administration Albuterol/Ipratropium 3 ml 04/18/23 12:12 04/18/23 12:38 Albuterol/Iprat 2.5/0.5mg 3 Ml Ampul.Neb INHALE 04/18/23 12:13 3 ml ONCE ONE Administration Furosemide 40 mg 04/18/23 11:30 04/18/23 11:44 Furosemide 40 Mg/4 Ml Vial IVPUSH 04/18/23 11:31 40 mg ONCE ONE Administration Protocol Medical Decision Making Medical Decision Making MDM Narrative: 69-year-old male with history of chronic hypoxic respiratory failure on 2 L nasal cannula baseline presenting with acute on chronic hypoxic respiratory failure with diffuse wheezing throughout. Patient is likely having a COPD/asthma exacerbation although we also considered a new diagnosis of heart failure. We ordered basic labs, as well as a BNP for the workup. Patient found to have an elevated BNP of almost 900 which is new for him. He has 3+ pitting edema of his lower extremities. He was given IV Lasix and nebulizer treatments in the ER. He was able to be weaned to 8 L nasal cannula and is breathing slightly more comfortably. No evidence of infection or sepsis at this time. Will plan to admit the patient for further management. Differential Diagnosis Differential Diagnoses: The differential diagnosis associated with the presentation includes COPD exacerbation Asthma exacerbation Heart failure Pulmonary edema Pneumonia Covid URI Admission/Observation Consideration of admission/observation: Escalation of care including admission/observation considered Consult Healthcare Provider Management of the patient was discussed with: Hospitalist Dr. Andrei FELIX for admit Lab Data MDM Lab Attestation statement: I reviewed the patient's lab results. 04/18/23 10:51 04/18/23 10:51 Labs: Lab Results 04/18/23 04/18/23 04/18/23 Range/Units 10:51 10:51 10:51 WBC 8.3 (4.8-10.8) X10*3/uL RBC 4.24 L (4.60-5.80) X10*6/uL Hgb 12.2 L (14.0-18.0) g/dl Hct 39.1 L (42.0-52.0) % MCV 92.2 (80.0-98.0) fL MCH 28.8 (27.0-33.0) pg MCHC 31.2 (31.0-36.0) g/dl RDW 17.8 H (11.0-16.0) % Plt Count 232 (160-400) X10*3/uL MPV 10.4 (9.4-12.4) fL Immature Gran % (Auto) 0.5 H (0.0-0.4) % Neut % (Auto) 70.5 (45-73) % Lymph % (Auto) 19.9 L (20-40) % Mcpherson % (Auto) 7.2 (2-11) % Eos % (Auto) 1.3 (0-4) % Baso % (Auto) 0.6 (0-2) % Lymph # (Auto) 1.7 (1.2-4.9) X10*3/uL [place]son # (Auto) 0.6 (0.1-1.2) X10*3/uL Eos # (Auto) 0.1 (0.0-0.4) X10*3/uL Baso # (Auto) 0.1 (0.0-0.2) X10*3/uL Abs Immat Gran (auto) 0.04 H (0.00-0.03) X10*3/uL Absolute Neuts (auto) 5.9 (2.0-8.3) x10*3/uL Absolute Nucleated RBC 0.000 (0.0-0.012) X10*3/uL Nucleated RBC % (auto) 0.0 (0.0-0.2) /100WBC PT (10.0-13.1) SEC INR (0.9-1.1) APTT (26.0-36.4) SEC Sodium 133 L (135-145) mmol/L Potassium 4.5 (3.3-5.1) mmol/L Chloride 103 (96-108) mmol/L Carbon Dioxide 22 (22-29) mmol/L Anion Gap 13 (12-20) BUN 25 H (9-16) mg/dL Creatinine 1.70 H (0.5-1.4) mg/dL Estim Creat Clear Calc 43.1 Estimated GFR 39 Random Glucose 176 H (60-115) mg/dL Calcium 8.9 (8.4-10.2) mg/dL Magnesium 1.3 L* (1.6-2.6) mg/dL Total Bilirubin 1.1 H (0.0-1.0) mg/dL Direct Bilirubin 0.4 (0.0-0.5) mg/dL AST 17 (5-37) U/L ALT 19 (0-40) U/L Alkaline Phosphatase 81 (39-117) U/L B-Natriuretic Peptide 894 H (<100) pg/mL Total Protein 7.2 (6.5-8.0) g/dL Albumin 3.5 (3.5-5.0) g/dL Urine Color Urine Appearance Urine pH (5.0-9.0) Ur Specific [place] (1.005-1.025) Urine Protein (Neg-Trace) mg/dL Urine Glucose (UA) (Negative) mg/dL Urine Ketones (Negative) mg/dL Urine Blood (Negative) Urine Nitrite (Negative) Ur Leukocyte Esterase (Negative) COVID-19 (ZACK) (Negative) COVID-19 Clin Com 04/18/23 04/18/23 04/18/23 Range/Units 10:51 10:51 12:19 WBC (4.8-10.8) X10*3/uL RBC (4.60-5.80) X10*6/uL Hgb (14.0-18.0) g/dl Hct (42.0-52.0) % MCV (80.0-98.0) fL MCH (27.0-33.0) pg MCHC (31.0-36.0) g/dl RDW (11.0-16.0) % Plt Count (160-400) X10*3/uL MPV (9.4-12.4) fL Immature Gran % (Auto) (0.0-0.4) % Neut % (Auto) (45-73) % Lymph % (Auto) (20-40) % Mcpherson % (Auto) (2-11) % Eos % (Auto) (0-4) % Baso % (Auto) (0-2) % Lymph # (Auto) (1.2-4.9) X10*3/uL [place] # (Auto) (0.1-1.2) X10*3/uL Eos # (Auto) (0.0-0.4) X10*3/uL Baso # (Auto) (0.0-0.2) X10*3/uL Abs Immat Gran (auto) (0.00-0.03) X10*3/uL Absolute Neuts (auto) (2.0-8.3) x10*3/uL Absolute Nucleated RBC (0.0-0.012) X10*3/uL Nucleated RBC % (auto) (0.0-0.2) /100WBC PT 55.9 H (10.0-13.1) SEC INR 4.6 H D (0.9-1.1) APTT 47.6 H (26.0-36.4) SEC Sodium (135-145) mmol/L Potassium (3.3-5.1) mmol/L Chloride (96-108) mmol/L Carbon Dioxide (22-29) mmol/L Anion Gap (12-20) BUN (9-16) mg/dL Creatinine (0.5-1.4) mg/dL Estim Creat Clear Calc Estimated GFR Random Glucose (60-115) mg/dL Calcium (8.4-10.2) mg/dL Magnesium (1.6-2.6) mg/dL Total Bilirubin (0.0-1.0) mg/dL Direct Bilirubin (0.0-0.5) mg/dL AST (5-37) U/L ALT (0-40) U/L Alkaline Phosphatase (39-117) U/L B-Natriuretic Peptide (<100) pg/mL Total Protein (6.5-8.0) g/dL Albumin (3.5-5.0) g/dL Urine Color Yellow Urine Appearance Clear Urine pH 5.5 (5.0-9.0) Ur Specific [place] <= 1.005 (1.005-1.025) Urine Protein Negative (Neg-Trace) mg/dL Urine Glucose (UA) Negative (Negative) mg/dL Urine Ketones Negative (Negative) mg/dL Urine Blood Negative (Negative) Urine Nitrite Negative (Negative) Ur Leukocyte Esterase Negative (Negative) COVID-19 (ZACK) Negative (Negative) COVID-19 Clin Com See Note Independent Interpretation I performed an independent interpretation of an: EKG and Plain X-Ray Interpretation: CXR reviewed - increased bibasilar markings, R>L looks like pulm edema EKG - normal sinus rhythm with PACs, ventricular rate 70 beats per minute, T-wave inversions in leads 3 and V1 only, no ST segment elevations or depressions. Radiology Impression Discussion of test interpretation with radiology: I have reviewed the radiologist's reading. Radiologist Impression: EXAMINATION: XR CHEST CLINICAL INFORMATION: Shortness of breath COMPARISON: Previous chest x-ray and chest CT October 2021 TECHNIQUE: Frontal view of the chest was obtained. FINDINGS: The cardiac and mediastinal contours are stable. There are increased interstitial markings seen at the lung bases suggestive of interstitial lung disease. This is similar to previous exams. There is linear scarring or chronic subsegmental atelectasis that is unchanged. No pleural effusion or pneumothorax. Degenerative changes of the spine. XR/XR chest 1V IMPRESSION: No evidence for acute disease in the chest. Interstitial lung disease and bilateral linear scarring or chronic subsegmental atelectasis in the lingula to previous exams. Independent Historian Clinical information obtained from an independent historian. History obtained from or confirmed by: Spouse, Friend and EMS External Record Review External record reviewed: Inpatient record, Office record, Outpatient record, Prior outpatient labs and Prior outpatient radiology Prescription Management I considered prescription management with: Pain Medication, Antibiotic and Other (steroids, lasix) Chronic Conditions Patient?s care impacted by: Other (COPD/asthma) Critical Care Time Critical Care Time Critical Care Time: Yes Total Critical Care Time: 46 Attestation: I have personally provided critical care time exclusive of time spent on separately billable procedures. Time includes review of lab data, radiology results, discussion with consultants, and monitoring for potential decompensation. Intervention performed as documented. Discharge Plan Discharge Clinical Impression: Acute and chronic respiratory failure with hypoxia, COPD exacerbation, Acute CHF Patient Disposition: Admitted As Inpatient
--- NOTE | 2023-04-18 10:58 | PC.NURSE ---
Patient BIBA for approximately 2-3 days of dyspnea and approximately 1 week of cough. Uses O2 at home at 2L, this was ineffective and patient was noted to have a sat in the 70's. EMS increased O2 to 4L and gave patient nebulizer treatment with some effect. Patient noted to have increased work of breathing and expiratory wheezing. Patient with hx of afib and COPD.
[2023-04-18 11:01] LABS: MANUAL DIFF FLAG NO
[2023-04-18 11:03] LABS: Basophils Absolute Auto 0.1 X10*3/uL (0.0-0.2); Basophils Percent Auto 0.6 % (0-2); Eosinophils Absolute Auto 0.1 X10*3/uL (0.0-0.4); Eosinophils Percent Auto 1.3 % (0-4); Hematocrit 39.1 % (42.0-52.0); Hemoglobin 12.2 g/dl (14.0-18.0); Imm Gran Abs Auto 0.04 X10*3/uL (0.00-0.03); Imm Gran Pct Auto 0.5 % (0.0-0.4); Lymphocytes Absolute Auto 1.7 X10*3/uL (1.2-4.9); Lymphocytes Percent Auto 19.9 % (20-40); Mean Corpuscular HGB Conc 31.2 g/dl (31.0-36.0); Mean Corpuscular Hemoglobin 28.8 pg (27.0-33.0); Mean Corpuscular Volume 92.2 fL (80.0-98.0); Mean Platelet Volume 10.4 fL (9.4-12.4); Monocytes Absolute Auto 0.6 X10*3/uL (0.1-1.2); Monocytes Percent Auto 7.2 % (2-11); Neutrophils Absolute Auto 5.9 x10*3/uL (2.0-8.3); Neutrophils Percent Auto 70.5 % (45-73); Platelet Count 232 X10*3/uL (160-400); Red Blood Count 4.24 X10*6/uL (4.60-5.80); Red Cell Distribution Width 17.8 % (11.0-16.0); White Blood Count 8.3 X10*3/uL (4.8-10.8)
[2023-04-18] MEDS: Albuterol Sulfate (0.083%) 2.5 MG/3 ML VIAL.NEB 5 MG INHALE (11:06)
[2023-04-18 11:07] VITALS: PULSE 72; RESP 20
[2023-04-18 11:18] LABS: INTERNATIONAL NORM RATIO 4.6 (0.9-1.1); Prothrombin Time 55.9 SEC (10.0-13.1)
[2023-04-18 11:21] LABS: Alanine Aminotransferase 19 U/L (0-40); Albumin Level 3.5 g/dL (3.5-5.0); Alkaline Phosphatase 81 U/L (39-117); Anion Gap 13 (12-20); Aspartate Amino Transferase 17 U/L (5-37); Bilirubin Direct 0.4 mg/dL (0.0-0.5); Bilirubin Total 1.1 mg/dL (0.0-1.0); Blood Urea Nitrogen 25 mg/dL (9-16); Calcium 8.9 mg/dL (8.4-10.2); Carbon Dioxide 22 mmol/L (22-29); Chloride 103 mmol/L (96-108); Creatinine Clr Calc Pharmacy 43.1; Estimated Glomerular Filt Rate 39; Glucose Random 176 mg/dL (60-115); Magnesium 1.3 mg/dL (1.6-2.6); Partial Thromboplastin Time 47.6 SEC (26.0-36.4); Potassium 4.5 mmol/L (3.3-5.1); Sodium 133 mmol/L (135-145); Total Protein 7.2 g/dL (6.5-8.0)
[2023-04-18 11:24] LABS: B Type Natriuretic Peptide 894 pg/mL (<100)
[2023-04-18 11:28] LABS: COVID-19 Test Negative (Negative); IDNOW Serial# BCCEAD1C
[2023-04-18] MEDS: Magnesium Sulfate/H2O 2 GM/50 ML PIGGYBACK IV (11:35)
[2023-04-18] MEDS: Furosemide 40 MG/4 ML VIAL IVPUSH ×2 (11:44→19:28)
--- NOTE | 2023-04-18 11:46 | PC.NURSE ---
Patient noted to have O2 sat in the high 80's, O2 increased to 8L, patient at 92% on the 8L.
--- OUTSIDE RECORDS SUMMARY | 2023-04-18 12:24 | XMS_ITS | Continuity of Care Document ---
Author Name Unknown Organization [facility] ter Address [address] [place] [id number] Care Team Providers Care Welfare Centre Manager Name Role Phone Moris Machado III, MD Primary Care Physician [phone] [id number] Date(s): 01/01/20 - 01/01/[address] [address]- [facility] Encounter Diagnosis Finger laceration(Final) - 01/01/20 Finger laceration(Final) - 01/01/20 Discharge Disposition: A-D/C Home Attending Physician: Clarice Witt DO Admitting Physician: Clarice Witt DO Referring Physician: Not on Staff, Referring MD Allergies, Adverse Reactions, Alerts Substance Reaction Severity Status NKA Active Immunizations Given and Recorded Vaccine Date Status Refusal Reason tetanus/diphtheria/pertussis, acel(Tdap) 01/01/20 Given Medications aspirin 81 mg oral enteric coated tablet 81, mg, 1, tablet, By Mouth, Daily, 0, 0, 06/08/06 10:58:36, Print ABDOULAYE Number, [id number], Constant Indicator Start Date: 06/08/06 Status: Ordered Cozaar 100 mg oral tablet 100, mg, 1, tablet, By Mouth, Daily, 0, 0, 06/08/06 11:10:37, Print ABDOULAYE Number, [id number], Constant Indicator Start Date: 06/08/06 Status: Ordered Crestor 10 mg oral tablet 10, mg, 1, tablet, By Mouth, Daily, 0, 5, 5, 06/08/06 10:58:41, Print ABDOULAYE Number, [id number], Constant Indicator Start Date: 06/08/06 Status: Ordered folic acid 1 mg oral tablet 1, mg, 1, tablet, By Mouth, Daily, 0, 0, 06/08/06 10:59:29, Print ABDOULAYE Number, [id number], Constant Indicator Start Date: 06/08/06 Status: Ordered hydrochlorothiazide 25 mg oral tablet 25, mg, 1, tablet, By Mouth, Daily, 0, 0, 05/24/07 10:20:48, Print ABDOULAYE Number, [id number], Constant Indicator Start Date: 05/24/07 Status: Ordered methotrexate 2.5 mg oral tablet 20, mg, 8, tablet, By Mouth, Every Tuesday, 0, 0, 06/08/06 10:59:02, Print ABDOULAYE Number, 82, Constant Indicator Start Date: 06/08/06 Status: Ordered nitroglycerin 0.4 mg sublingual tablet 0.4, mg, 1, tablet, Sublingual, Every 5 minutes, Scheduled / PRN, 0, 0, 05/24/07 10:21:00, as needed for chest pain, Print ABDOULAYE Number, 75 Start Date: 05/24/07 Status: Ordered nitroglycerin 0.4 mg sublingual tablet 0.4, mg, 1, tablet, Sublingual, Every 5 minutes, Scheduled / PRN, 25, tablet, 5, 5, 05/24/07 10:21:36, as needed for chest pain, Print ABDOULAYE Number, ADS OPPTHS, 75 Start Date: 05/24/07 Status: Ordered Protonix 40 mg oral enteric coated tablet 40, mg, 1, tablet, By Mouth, Daily, 0, 0, 05/24/07 10:20:31, Print ABDOULAYE Number, [id number], Constant Indicator Start Date: 05/24/07 Status: Ordered Toprol XL 200 mg oral tablet, extended release 200, mg, 1, tablet, By Mouth, Daily, 0, 0, 05/24/07 10:20:20, Print ABDOULAYE Number, [id number], Constant Indicator Start Date: 05/24/07 Status: Ordered Toprol XL 200 mg oral tablet, extended release 200, mg, 1, tablet, By Mouth, Daily, 30, tablet, 5, 5, 10/15/08 13:24:07, Print ABDOULAYE Number, ADS OPPTHS, [id number], Constant Indicator Start Date: 10/15/08 Stop Date: 04/13/09 Status: Ordered Results Radiology Reports * Exam Date Time Procedure Performing Provider Status 01/01/20 4:12 PM Hand Min 3 Views Left Rosio Blair ; Jonny (Verified) Notes: (Hand Min 3 Views Left) Reason For Exam: Trauma RESULT: Hand Min 3 Views Left Left hand 3 views dated January 01, 2020. No prior studies are available. HISTORY: Pain. The patient put his hand in the midline. There are bandages over the thumb, second, and third fingers. No fracture or dislocation is identified. There is loss of joint space in the interphalangeal joints consistent with mild degenerative changes. IMPRESSION: Bandages which partially obscure bony detail. No associated fracture or dislocation. Examination 25283. Thank you for allowing me to participate in the care of this patient. WSN: [id number] Dictated By: David Carcamo MD Dictated Date/Time: 01/01/20 4:21 pm Reviewed By: David Carcamo MD Signed By: David Carcamo MD Signed Date/Time: 01/01/20 4:21 pm Transcribed By: SHYANNE Transcribed Date/Time: 01/01/20 4:19 pm Vital Signs Most recent to oldest [Reference Range]: 1 2 3 Height 168 cm (01/01/20 1:50 PM) Weight 85.0 kg (01/01/20 1:50 PM) Oxygen Saturation [94-100 %] 94 % (01/01/20 6:52 PM) 92 % *L* (01/01/20 4:02 PM) 95 % (01/01/20 1:50 PM) Pulse Rate [55-90 bpm] 62 bpm (01/01/20 6:52 PM) 93 bpm *H* (01/01/20 4:02 PM) 63 bpm (01/01/20 1:50 PM) Body Mass Index [18.5-24.99] 30.12 *>HHI* (01/01/20 1:50 PM) Blood Pressure [90-138/55-84 mm Hg] 145/56mm Hg *H* (01/01/20 6:52 PM) 133/64mm Hg (01/01/20 4:02 PM) 141/67mm Hg *H* (01/01/20 1:50 PM) Respiratory Rate [16-30 br/min] 18 br/min (01/01/20 6:52 PM) 20 br/min (01/01/20 4:02 PM) 19 br/min (01/01/20 1:50 PM) Temperature [96.8-100.4 DegF] 97.7 DegF (01/01/20 1:50 PM) Mode of Delivery (Oxygen) Room air (01/01/20 6:52 PM) Room air (01/01/20 4:02 PM) Room air (01/01/20 1:50 PM) Blood pressure sites Arm, right (01/01/20 6:52 PM) Arm, right (01/01/20 4:02 PM) Arm, right (01/01/20 1:50 PM) Temperature Route Oral (01/01/20 1:50 PM) Dry Weight 85.0 kg (01/01/20 1:50 PM)
[2023-04-18 12:31] LABS: Appearance Urine Clear; Color Urine Yellow; Glucose Urine UA Negative (Negative); Leukocyte Esterase Urine Negative (Negative); Nitrite Urine Negative (Negative); PH 5.5 (5.0-9.0); Specific Gravity - Urine <= 1.005 (1.005-1.025); Urine Blood Negative (Negative); Urine Ketones Negative (Negative); Urine Protein Negative (Neg-Trace)
--- NOTE | 2023-04-18 12:37 | PM.IMHP ---
History of Present Illness Date of Service: 04/18/23 Attending physician on admission: Black oFrbes Chief Complaint: weber 77 year old female with asthma/copd overlap, ILD, chronic hypoxemic respiratory failure, paroxysmal atrial fibrillation anticoagulated on coumadin, htn, RA on methotrexate who is a former smoker (quit 23 years ago) presented to the ED with his and son for evaluation of shortness of breath ongoing for 1.5 weeks. He reports WEBER and PND, but denies orthopnea, wheezing, lightheadedness, palpitations, or chest pain. He reports longstanding BLE edema which he has attributed to chronic prednisone use, but states has increased in last week. He reports oximetry to 87% at home, requiring increase in supplemental O2. No fevers, chills, sick contacts. No significant increase in albuterol usage. Follows with pulmonology at [facility] ([place]) and [facility] cardiology. Per EMS, pt oximetry in 70's on arrival, placed on increased supplemental O2, given 125mg solumedrol and a duoneb. On arrival, patient oximetry 87% on RA placed on oxymask at 8L and then transitioned abck to NC at 7L maintaining oximetry 90%. He was tachypneic to 26, vitals otherwise normal. normocytic anemia with H/ H 12.2/39.1%. PTT 55.9, INR 4.6, PTT 47.6. Creatinine 1.70, BUN 25, sodium 133, electrolytes otherwise normal except for mild hypo magnesiumia of 1.3. BNP 894. CXR with increased interstitial markings at the lung bases and bilateral linear scarring or chronic subsegmental atelectasis in the lingula. Viral respiratory panel pending. EKG with NSR, rate 70 with T-wave inversions in leads III and V1, no ST or depressions. Review of Systems Review of Systems: General: No fevers, malaise, unintentional weight loss HEENT: No blurred vision, diplopia. No sore throat, nasal congestion, rhinorrhea, sinus pain, ear pain Cardiovascular: No chest pain, palpitations. +BLE edema Respiratory: +weber, +PND. No sob at rest, orthopnea, wheezing, cough GI: No abdominal pain, nausea, vomiting, diarrhea, constipation, melena, hematochezia : No dysuria, hematuria, increased urinary frequency, decreased urinary output MSK: No myalgia, back pain Neuro: No headaches, weakness, paresthesias Skin: No rashes or lesions [facility] Medical History Atrial fibrillation Chronic anticoagulation Chronic hypoxemic respiratory failure COPD exacerbation Hypertension ILD (interstitial lung disease) Lymphadenopathy Rheumatoid arthritis Social History Household Members: Spouse Housing: Apartment Do you presently have visiting nurse or other home services: No Alcohol intake: never Patient Tobacco Use Status: Former Tobacco user Smoked in Last 30 Days: No Use of substances other than those prescribed or required for medical reasons: No Advance Directives: Yes Advance Directives Information Provided: No Advance Directives on File: No service: No Current occupational status: retired [employer] Allergies Allergy/AdvReac Type Severity Reaction Status Date / Time No Known Allergies Allergy Unknown NOT Verified 11/21/21 19:48 APPLICABLE Active Medications: Current Medications Magnesium Sulfate (Magnesium Sulfate/H2o) 2 gm in 50 mls @ 25 mls/hr IV ONCE ONE Stop: 04/18/23 13:19 Last Admin: 04/18/23 11:35 Dose: 25 mls/hr Pharmacy Consult (Consult Rx Perform Med Rec) 1 each MISCELLANE ONCE PRN PRN Reason: Consult order Home Medications Medication Instructions Recorded Confirmed Last Taken Type adalimumab 40 mg/0.4 mL 40 mg subcut Q2W 11/20/21 04/18/23 11/13/21 History subcutaneous pen kit (Humira(CF) Pen) amlodipine 5 mg tablet 1 tab PO DAILY 11/20/21 04/18/23 Unknown History folic acid 400 mcg tablet 800 mcg PO DAILY 11/20/21 04/18/23 Unknown History hydrochlorothiazide 25 mg tablet 1 tab PO DAILY 11/20/21 04/18/23 Unknown History losartan 100 mg tablet 1 tab PO DAILY 11/20/21 04/18/23 Unknown History methotrexate sodium 2.5 mg tablet 5 tab PO WE 11/20/21 04/18/23 Unknown History metoprolol tartrate 50 mg tablet 1 tab PO BID 11/20/21 04/18/23 Unknown History omeprazole 20 mg capsule,delayed 40 mg PO DAILY 11/20/21 04/18/23 Unknown History release rosuvastatin 10 mg tablet 1 tab PO BEDTIME 11/20/21 04/18/23 Unknown History timolol maleate 0.5 % eye drops 1 drp ophthalmic (eye) DAILY 11/20/21 04/18/23 Unknown History tramadol 50 mg tablet 1 tab PO BID PRN Pain, Moderate 11/20/21 04/18/23 Unknown History warfarin 5 mg tablet 5 mg PO MOFR 11/20/21 04/18/23 Unknown History albuterol sulfate 90 mcg/actuation 2 puff inhalation Q4-6H PRN 04/18/23 04/18/23 Unknown History aerosol inhaler Shortness Of Breath Or Wheezing aspirin 81 mg tablet,delayed 81 mg PO DAILY 04/18/23 04/18/23 Unknown History release cholecalciferol (vitamin D3) 25 25 mcg PO DAILY 04/18/23 04/18/23 Unknown History mcg (1,000 unit) capsule (Vitamin D3) fluticasone furoate 200 1 puff inhalation DAILY 04/18/23 04/18/23 Unknown History mcg-vilanterol 25 mcg/dose inhalation powder (Breo Ellipta) nitroglycerin 0.4 mg sublingual 0.4 mg sublingual NEEDED PRN 04/18/23 04/18/23 Unknown History tablet Chest Pain prednisone 2.5 mg tablet 7.5 mg PO DAILY 04/18/23 04/18/23 Unknown History warfarin 5 mg tablet 2.5 mg PO SUTUWETHSA 04/18/23 04/18/23 Unknown History Physical Exam Vital Signs and Narrative: Vital Signs: Last Vital Signs Temp 97.7 F 04/18/23 10:38 Pulse 72 04/18/23 11:07 Resp 20 04/18/23 11:07 BP 131/57 L 04/18/23 10:38 Pulse Ox 96 04/18/23 10:38 O2 Del Method Oxymask 04/18/23 10:38 Oxygen Flow Rate 13 04/18/23 10:38 BMI result Body Mass Index 30.7 Constitutional - Awake and Alert, No apparent distress Eyes - PERRLA, EOMI Cardiovascular - S1S2, RRR, No edema Respiratory - Normal lung expansion, Normal respiratory effort, No respiratory distress, scattered wheezing bilaterally with rhonchi BLL Gastrointestinal - NT / ND; +BS; No rebound or guarding Extremities - no calf tenderness bilaterally, no swelling Musculoskeletal - Normal inspection, normal ROM Skin - Warm/Dry Neurological - Alert & oriented x3, CN II-XII in tact, 5/5 strength BUE and BLE Psychological - Appropriate affect Results Labs 04/18/23 10:51 04/18/23 10:51 Labs: Laboratory Results - last 24 hr 04/18/23 04/18/23 04/18/23 10:51 10:51 10:51 MCV 92.2 MCH 28.8 MCHC 31.2 RDW 17.8 H Plt Count 232 MPV 10.4 Immature Gran % (Auto) 0.5 H Neut % (Auto) 70.5 Lymph % (Auto) 19.9 L [place] % (Auto) 7.2 Eos % (Auto) 1.3 Baso % (Auto) 0.6 Lymph # (Auto) 1.7 [place] # (Auto) 0.6 Eos # (Auto) 0.1 Baso # (Auto) 0.1 Abs Immat Gran (auto) 0.04 H Absolute Neuts (auto) 5.9 Absolute Nucleated RBC 0.000 Nucleated RBC % (auto) 0.0 PT INR APTT Anion Gap 13 Estim Creat Clear Calc 43.1 Estimated GFR 39 Random Glucose 176 H Calcium 8.9 Magnesium 1.3 L* Total Bilirubin 1.1 H Direct Bilirubin 0.4 AST 17 ALT 19 Alkaline Phosphatase 81 B-Natriuretic Peptide 894 H Total Protein 7.2 Albumin 3.5 Urine Color Urine Appearance Urine pH Ur Specific [place] Urine Protein Urine Glucose (UA) Urine Ketones Urine Blood Urine Nitrite Ur Leukocyte Esterase COVID-19 ([facility]) COVID-19 Clin Com 04/18/23 04/18/23 04/18/23 10:51 10:51 12:19 MCV MCH MCHC RDW Plt Count MPV Immature Gran % (Auto) Neut % (Auto) Lymph % (Auto) [place] % (Auto) Eos % (Auto) Baso % (Auto) Lymph # (Auto) [place] # (Auto) Eos # (Auto) Baso # (Auto) Abs Immat Gran (auto) Absolute Neuts (auto) Absolute Nucleated RBC Nucleated RBC % (auto) PT 55.9 H INR 4.6 H D APTT 47.6 H Anion Gap Estim Creat Clear Calc Estimated GFR Random Glucose Calcium Magnesium Total Bilirubin Direct Bilirubin AST ALT Alkaline Phosphatase B-Natriuretic Peptide Total Protein Albumin Urine Color Yellow Urine Appearance Clear Urine pH 5.5 Ur Specific [place] <= 1.005 Urine Protein Negative Urine Glucose (UA) Negative Urine Ketones Negative Urine Blood Negative Urine Nitrite Negative Ur Leukocyte Esterase Negative COVID-19 ([facility]ACK) Negative COVID-19 Clin Com See Note Imaging Radiologist's Impressions: Impressions Chest X-Ray 04/18/23 11:07 IMPRESSION: No evidence for acute disease in the chest. Interstitial lung disease and bilateral linear scarring or chronic subsegmental atelectasis in the lingula to previous exams. Assessment and Plan (1) Acute and chronic respiratory failure with hypoxia: Status: Acute (2) Acute CHF: Status: Acute (3) Acute kidney injury: Status: Acute (4) Hypomagnesemia: Status: Acute Plan 77 year old female with asthma/copd overlap, ILD, chronic hypoxemic respiratory failure, paroxysmal atrial fibrillation anticoagulated on coumadin, htn, RA on methotrexate, and glaucoma admitted for acute on chronic hypoxemic respiratory failure and acute CHF exacerbation. #Acute on chronic hypoxemic respiratory failure due to CHF exacerbation -on 2L supplemental O2 at baseline due to chronic lung disease -Using 7L O2 on admission. Continue supplemental O2 to maintain oximetry 90-92%, titrate as needed - CXR showing increased interstitial markings likely pulmonary edema. BNP 900 - IV furosemide 40 mg daily - strict I&O - daily weights - cardiac diet - echocardiogram - cardiology consult - admit to telemetry - follow BMP, BNP #Acute kidney injury -liekly cardiorenal - diuresis as above. Hold on fluid administration in the setting of CHF exacerbation - follow BMP #Acute hypomagnesemia - repleted in ED - follow magnesium #Paroxysmal atrial finbrillation- rate controlled -INR supratherapeutic. Goal 2.0-3.0. Hold coumadin for now, resume once INR therapeutic -continue metoprolol for rate control # asthma/ COPD overlap/ interstitial lung disease - no acute exacerbation. Wheezing is likely cardiac - continue home inhalers, albuterol p.r.n. - continue home prednisone 7.5 mg daily #HTN - reasonably controlled. Hold losartan, hydrochlorothiazide in setting of NACHO - continue amlodipine #rheumatoid arthritis -Hold methotrxate in setting of above -continue prednisone. Takes humira at home DVT prophyloaxis- SCPs, INR supratherapeutic, resume Coumadin once therapeutic full code Pt requires inpt stay at least 2 midnights for management of acute chf exacerbation wtih acute on chronic hypoxemic respiratory failure requiring IV diuresis and increased supplemental O2 from baseline as well as expert consultation. Time Spent With Patient Time: Total time managing care of this patient today ____ minutes. Quality Stroke Does the patient have a stroke diagnosis?: No VTE Prior VTE?: No VTE Risk Level:: Medical - moderate - high VTE Device Contraindication: N/A - Device Ordered VTE Drug Contraindication: Treatment Not Indicated
[2023-04-18] MEDS: Albuterol/Iprat 2.5/0.5MG 3 ML AMPUL.NEB INHALE (12:38)
[2023-04-18 12:39] VITALS: PULSE 68; RESP 22; O2SAT 91
[2023-04-18] MEDS: Doxycycline Hyclate 100 MG in 0.9 % Sodium Chloride 250 ML 166.67 MG IV (13:22)
--- NOTE | 2023-04-18 13:29 | PHA.MEDREC ---
Pharmacy Consult ? Medication Reconciliation Pharmacy has completed the medication reconciliation. Spoke with patient, his , and his son. They brought in most of his medications and were able to verify everything. They mentioned that he was using his albuterol inhaler a lot more than usual for the past couple of weeks. He also has a Breo Ellipta inhaler at home which he does not use every day because he does not know what it's for or how to use it. Counseled patient and family what it's for and how to take and recommended to ask for a demonstration next time they potato picker from the pharmacy.
[2023-04-18 13:36] LABS: Lactic Acid 1.1 mmol/L (0.5-2.0)
[2023-04-18 14:35] LABS: Adenovirus PCR Not Detected (Not Detect.); Bordetella parapertussis PCR Not Detected (Not Detect.); Bordetella pertussis PCR Not Detected (Not Detect.); Chlamydia pneumoniae PCR Not Detected (Not Detect.); Coronavirus 229E PCR Not Detected (Not Detect.); Coronavirus HKU1 PCR Not Detected (Not Detect.); Coronavirus NL63 PCR Not Detected (Not Detect.); Coronavirus OC43 PCR Not Detected (Not Detect.); Human metapneumovirus PCR Not Detected (Not Detect.); Influenza A PCR Not Detected (Not Detect.); Influenza B PCR Not Detected (Not Detect.); Mycoplasma pneumoniae PCR Not Detected (Not Detect.); Parainfluenza 1 PCR Not Detected (Not Detect.); Parainfluenza 2 PCR Not Detected (Not Detect.); Parainfluenza 3 PCR Not Detected (Not Detect.); Parainfluenza 4 PCR Not Detected (Not Detect.); RSV PCR Not Detected (Not Detect.); Rhino/Enterovirus PCR Not Detected (Not Detect.); SARS-CoV-2 PCR Not Detected (Not Detect.)
[2023-04-18 14:52] VITALS: BP 126/85; PULSE 74; RESP 25; TEMP 36.5; O2SAT 92
[2023-04-18] MEDS: 0.9 % Sodium Chloride Flush 3 ML SYRINGE IVFLUSH ×2 (17:37→19:29)
[2023-04-18 19:56] VITALS: BP 148/70; PULSE 80; RESP 16; TEMP 36.4; O2SAT 90
[2023-04-18] MEDS: Metoprolol Tartrate 50 MG TABLET PO (21:05)
[2023-04-18] MEDS: Atorvastatin Calcium 40 MG TABLET PO (21:05)
[2023-04-18] MEDS: traMADoL HCL 50 MG TABLET PO (21:05)
[2023-04-19] VITALS (8 sets, daily range): BP systolic 115–152; BP diastolic 57–72; PULSE 69–83; RESP 16–20; TEMP 36–36.3; O2SAT 88–94
[2023-04-19] MEDS: Omeprazole 40 MG CAPSULE.DR PO (05:57)
[2023-04-19 05:59] LABS: MANUAL DIFF FLAG NO
[2023-04-19 06:09] LABS: Basophils Percent Auto 0.1 % (0-2); Hematocrit 38.4 % (42.0-52.0); Hemoglobin 12.1 g/dl (14.0-18.0); Imm Gran Abs Auto 0.04 X10*3/uL (0.00-0.03); Imm Gran Pct Auto 0.4 % (0.0-0.4); Lymphocytes Absolute Auto 1.1 X10*3/uL (1.2-4.9); Mean Corpuscular HGB Conc 31.5 g/dl (31.0-36.0); Mean Corpuscular Hemoglobin 28.8 pg (27.0-33.0); Mean Corpuscular Volume 91.4 fL (80.0-98.0); Mean Platelet Volume 10.9 fL (9.4-12.4); Monocytes Absolute Auto 0.6 X10*3/uL (0.1-1.2); Monocytes Percent Auto 6.8 % (2-11); NRBC Pct Auto 0.3 /100WBC (0.0-0.2); Neutrophils Absolute Auto 7.3 x10*3/uL (2.0-8.3); Neutrophils Percent Auto 80.7 % (45-73); Platelet Count 244 X10*3/uL (160-400); Red Cell Distribution Width 17.5 % (11.0-16.0)
[2023-04-19 06:34] LABS: Anion Gap 15 (12-20); Blood Urea Nitrogen 33 mg/dL (9-16); Calcium 9.7 mg/dL (8.4-10.2); Carbon Dioxide 25 mmol/L (22-29); Chloride 101 mmol/L (96-108); Creatinine Clr Calc Pharmacy 41.4; Estimated Glomerular Filt Rate 37; Glucose Random 135 mg/dL (60-115); Magnesium 1.5 mg/dL (1.6-2.6); Potassium 4.8 mmol/L (3.3-5.1); Sodium 136 mmol/L (135-145)
[2023-04-19 06:36] LABS: INTERNATIONAL NORM RATIO 3.4 (0.9-1.1); Prothrombin Time 41.6 SEC (10.0-13.1)
[2023-04-19] MEDS: Fluticasone/Vilanterol 200/25 BLST.W.DEV 1 PUFF INHALE (08:00)
[2023-04-19] MEDS: Metoprolol Tartrate 50 MG TABLET PO ×2 (08:43→21:03)
[2023-04-19] MEDS: amLODIPine Besylate 5 MG TABLET PO (08:43)
[2023-04-19] MEDS: 0.9 % Sodium Chloride Flush 3 ML SYRINGE IVFLUSH ×2 (08:43→21:04)
[2023-04-19] MEDS: Cholecalciferol (Vitamin D3) 25 MCG TABLET PO (08:43)
[2023-04-19] MEDS: Furosemide 40 MG/4 ML VIAL IVPUSH (08:43)
[2023-04-19] MEDS: predniSONE 2.5 MG TABLET 7.5 MG PO (08:43)
[2023-04-19] MEDS: Aspirin Enteric Coated 81 MG TABLET.DR PO (08:43)
[2023-04-19] MEDS: Folic Acid 1 MG TABLET PO (08:43)
--- NOTE | 2023-04-19 10:35 | PM.CNCAR ---
History of Present Illness History of Present Illness Date of Service: 04/19/23 Chief complaint: CHF Exacerbation Narrative: This is a cardiology consultation regarding congestive heart failure. Patient has multiple medical comorbidities including asthma/COPD, interstitial lung disease, chronic respiratory failure, paroxysmal atrial fibrillation, rheumatoid arthritis on methotrexate. Seems that he does have some chronic shortness of breath but over the last month or so he has been more short of breath than usual. He does have longstanding leg swelling but again increase over the last few days. He goes to [facility] for his cardiac issues. We have been asked to see him from cardiac standpoint while he is here. I could review a prior [facility] note which is more than 10 years old, from 2007. In that note, it states that patient had inferior wall myocardial infarction 2003. Subsequently, did not undergo cardiac catheterization and just has been manage medically. We will need to review the most recent office note from [facility] for further information. Review of Systems Review of Systems: Yes all other systems are reviewed and are negative Constitutional: Constitutional: Reports as per HPI and Reports no additional constitutional complaints Eyes: Eyes: Reports as per HPI and Denies no additional eye complaints ENT: Denies system reviewed and no additional complaints, except as documented and Reports as per HPI Cardiovascular: Cardiovascular: Reports as per HPI, Reports no additional cardiovascular complaints, Denies acrocyanosis, Denies cool extremities, Denies chest pain, Reports leg edema, Denies lightheadedness, Denies palpitations and Reports dyspnea Respiratory: Respiratory: Reports as per HPI, Denies no additional respiratory complaints and Reports dyspnea Gastrointestinal: Gastrointestinal: Reports as per HPI and Denies no additional gastrointestinal complaints Genitourinary: Genitourinary: Reports no additional male genitourinary complaints and Reports as per HPI Musculoskeletal: Musculoskeletal: Reports no additional musculoskeletal complaints and Reports as per HPI Integumentary/Breasts: Skin/Breast: Reports system reviewed and no additional complaints, except as docu Neurologic: Reports system reviewed and no additional complaints, except as documented and Reports as per HPI Psychiatric: Psychiatric: Reports no additional psychiatric complaints and Reports as per HPI Endocrine: Endocrine: Reports no additional endocrine complaints, Reports as per HPI and Denies palpitations Hematologic/Lymphatic: Hematologic/Lymphatic: Reports no additional hematologic/lymphatic complaints and Reports as per HPI Allergic/Immunologic: Allergic/Immunologic: Reports no additional allergic/immunologic complaints and Reports as per HPI [facility] Past Medical History Medical History Atrial fibrillation Chronic anticoagulation Chronic hypoxemic respiratory failure COPD exacerbation Hypertension ILD (interstitial lung disease) Lymphadenopathy Rheumatoid arthritis Family History Pertinent family history: No significant family history pertinent to this admission. Social History Social History Household Members: Spouse Housing: [facility] Do you presently have visiting nurse or other home services: No Alcohol intake: never Patient Tobacco Use Status: Former Tobacco user Quit Date: 23 years ago Years Smoked: 40 service: No Current occupational status: [email or web address] Allergies Allergy/AdvReac Type Severity Reaction Status Date / Time No Known Allergies Allergy Unknown NOT Verified 11/21/21 19:48 APPLICABLE Active Medications: Current Medications Acetaminophen (Acetaminophen 325 Mg Tablet) 650 mg PO Q6H PRN PRN Reason: Pain, Mild (Pain Scale 1-3) Albuterol Sulfate (Albuterol Sulfate 90 Mcg 8 Gm Inhaler) 2 puff INHALE Q4H PRN PRN Reason: Shortness Of Breath Or Wheezing Amlodipine Besylate (Amlodipine Besylate 5 Mg Tablet) 5 mg PO DAILY [facility]; Protocol Last Admin: 04/19/23 08:43 Dose: 5 mg Aspirin (Aspirin Enteric Coated 81 Mg Tablet.Dr) 81 mg PO DAILY [facility] Last Admin: 04/19/23 08:43 Dose: 81 mg Atorvastatin Calcium (Atorvastatin Calcium 40 Mg Tablet) 40 mg PO BEDTIME JEN Last Admin: 04/18/23 21:05 Dose: 40 mg Docusate Sodium (Docusate Sodium 100 Mg Capsule) 100 mg PO DAILY PRN PRN Reason: Constipation Fluticasone/Vilanterol (Fluticasone/Vilanterol 200/25 Blst.W.Dev) 1 puff INHALE DAILY [facility] Last Admin: 04/19/23 08:00 Dose: 1 puff Folic Acid (Folic Acid 1 Mg Tablet) 1 mg PO DAILY [facility] Last Admin: 04/19/23 08:43 Dose: 1 mg Furosemide (Furosemide 40 Mg/4 Ml Vial) 40 mg IVPUSH DAILY [facility]; Protocol Last Admin: 04/19/23 08:43 Dose: 40 mg Metoprolol Tartrate (Metoprolol Tartrate 50 Mg Tablet) 50 mg PO BID [facility]; Protocol Last Admin: 04/19/23 08:43 Dose: 50 mg Nitroglycerin (Nitroglycerin 0.4 Mg Tab.Subl) 0.4 mg SUBLINGUAL Q5M PRN PRN Reason: Chest Pain Omeprazole (Omeprazole 40 Mg Capsule.Dr) 40 mg PO DAILY@0630 [facility] Last Admin: 04/19/23 05:57 Dose: 40 mg Ondansetron HCl (Ondansetron Hcl 4 Mg/2 Ml Vial) 4 mg IVPUSH Q8H PRN PRN Reason: Nausea and Vomiting Pharmacy Consult (Consult Rx Perform Med Rec) 1 each MISCELLANE ONCE PRN PRN Reason: Consult order Prednisone (Prednisone 2.5 Mg Tablet) 7.5 mg PO DAILY [facility] Last Admin: 04/19/23 08:43 Dose: 7.5 mg Sodium Chloride (0.9 % Sodium Chloride Flush 3 Ml Syringe) 3 ml IVFLUSH QSHIFT [facility] Last Admin: 04/19/23 08:43 Dose: 3 ml Timolol Maleate (Timolol Maleate 0.5 % Oph [place] 5 Ml Drbtl) 1 drop EYE-BOTH DAILY [facility] Last Admin: 04/19/23 08:42 Dose: Not Given Tramadol HCl (Tramadol Hcl 50 Mg Tablet) 50 mg PO BID PRN PRN Reason: Pain, Moderate Last Admin: 04/18/23 21:05 Dose: 50 mg Vitamin D (Cholecalciferol (Vitamin D3) 25 Mcg Tablet) 25 mcg PO DAILY [facility] Last Admin: 04/19/23 08:43 Dose: 25 mcg Home Medications Medication Instructions Recorded Confirmed Last Taken Type adalimumab 40 mg/0.4 mL 40 mg subcut Q2W 11/20/21 04/18/23 11/13/21 History subcutaneous pen kit (Humira(CF) Pen) amlodipine 5 mg tablet 1 tab PO DAILY 11/20/21 04/18/23 Unknown History folic acid 400 mcg tablet 800 mcg PO DAILY 11/20/21 04/18/23 Unknown History hydrochlorothiazide 25 mg tablet 1 tab PO DAILY 11/20/21 04/18/23 Unknown History losartan 100 mg tablet 1 tab PO DAILY 11/20/21 04/18/23 Unknown History methotrexate sodium 2.5 mg tablet 5 tab PO WE 11/20/21 04/18/23 Unknown History metoprolol tartrate 50 mg tablet 1 tab PO BID 11/20/21 04/18/23 Unknown History omeprazole 20 mg capsule,delayed 40 mg PO DAILY 11/20/21 04/18/23 Unknown History release rosuvastatin 10 mg tablet 1 tab PO BEDTIME 11/20/21 04/18/23 Unknown History timolol maleate 0.5 % eye drops 1 drp ophthalmic (eye) DAILY 11/20/21 04/18/23 Unknown History tramadol 50 mg tablet 1 tab PO BID PRN Pain, Moderate 11/20/21 04/18/23 Unknown History warfarin 5 mg tablet 5 mg PO MOFR 11/20/21 04/18/23 Unknown History albuterol sulfate 90 mcg/actuation 2 puff inhalation Q4-6H PRN 04/18/23 04/18/23 Unknown History aerosol inhaler Shortness Of Breath Or Wheezing aspirin 81 mg tablet,delayed 81 mg PO DAILY 04/18/23 04/18/23 Unknown History release cholecalciferol (vitamin D3) 25 25 mcg PO DAILY 04/18/23 04/18/23 Unknown History mcg (1,000 unit) capsule (Vitamin D3) fluticasone furoate 200 1 puff inhalation DAILY 04/18/23 04/18/23 Unknown History mcg-vilanterol 25 mcg/dose inhalation powder (Breo Ellipta) nitroglycerin 0.4 mg sublingual 0.4 mg sublingual NEEDED PRN 04/18/23 04/18/23 Unknown History tablet Chest Pain prednisone 2.5 mg tablet 7.5 mg PO DAILY 04/18/23 04/18/23 Unknown History warfarin 5 mg tablet 2.5 mg PO SUTUWETHSA 04/18/23 04/18/23 Unknown History Physical Exam Vital Signs: Vital Signs: Last Vital Signs Temp 97.4 F 04/19/23 08:00 Pulse 71 04/19/23 08:03 Resp 20 04/19/23 08:03 BP 152/72 H 04/19/23 08:00 Pulse Ox 92 04/19/23 08:00 O2 Del Method Nasal Cannula 04/19/23 08:00 O2 Flow Rate 5 04/19/23 08:00 Oxygen Flow Rate 13 04/18/23 10:38 BMI result Body Mass Index 30.7 Const: General: comfortable and no acute distress Orientation/consciousness: patient oriented x3 HEENT: Other: Unremarkable Head: Yes normal to inspection Neck: Neck: Yes normal visual inspection Chest: Chest palpation & inspection: normal inspection of the chest Resp: Auscultation: wheezes Cardio: Palpation: normal PMI Heart sounds: S1 normal heart sound present, S2 normal heart sound present, no gallops, no murmurs and no rubs GI: Palpation (GI): Soft to palpation Back/Spine/Pelvis: Other: unremarkable Skin: General skin exam: no rashes or lesions noted Neuro: General: patient oriented x3 Extrem: Other: 1+ edema General: Yes normal to inspection Psych: Mental Status: mental status grossly normal Objective Labs and Meds 04/19/23 05:42 04/19/23 05:42 Lab results: Laboratory Results - last 24 hr 04/18/23 04/18/23 04/18/23 10:51 10:51 10:51 WBC 8.3 RBC 4.24 L Hgb 12.2 L Hct 39.1 L MCV 92.2 MCH 28.8 MCHC 31.2 RDW 17.8 H Plt Count 232 MPV 10.4 Immature Gran % (Auto) 0.5 H Neut % (Auto) 70.5 Lymph % (Auto) 19.9 L Baker % (Auto) 7.2 Eos % (Auto) 1.3 Baso % (Auto) 0.6 Lymph # (Auto) 1.7 Baker # (Auto) 0.6 Eos # (Auto) 0.1 Baso # (Auto) 0.1 Abs Immat Gran (auto) 0.04 H Absolute Neuts (auto) 5.9 Absolute Nucleated RBC 0.000 Nucleated RBC % (auto) 0.0 PT INR APTT Sodium 133 L Potassium 4.5 Chloride 103 Carbon Dioxide 22 Anion Gap 13 BUN 25 H Creatinine 1.70 H Estim Creat Clear Calc 43.1 Estimated GFR 39 Random Glucose 176 H Lactic Acid Calcium 8.9 Magnesium 1.3 L* Total Bilirubin 1.1 H Direct Bilirubin 0.4 AST 17 ALT 19 Alkaline Phosphatase 81 B-Natriuretic Peptide 894 H Total Protein 7.2 Albumin 3.5 Urine Color Urine Appearance Urine pH Ur Specific [place] Urine Protein Urine Glucose (UA) Urine Ketones Urine Blood Urine Nitrite Ur Leukocyte Esterase Respiratory Panel Spence Adenovirus (Rapid PCR) B.pert (TEM-PCR) B.parapertussis DNA PCR C. pneumoniae DNA (PCR) Coronavirus OC43 (PCR) Coronavirus HKU1 (PCR) Coronavirus 229E (PCR) COVID-19 (ZACK) COVID-19 Clin Com Coronavirus NL63 (PCR) Human Metapneumovir PCR Influenza A (RT-PCR) Influenza B (RT-PCR) M. pneumoniae (PCR) Parainfluenza 1 (PCR) Parainfluenza 2 (PCR) Parainfluenza 3 (PCR) Parainfluenza 4 (PCR) RSV (PCR) Entero/Rhino (PCR) SARS-CoV-2 RNA (RT-PCR) 04/18/23 04/18/23 04/18/23 10:51 10:51 12:19 WBC RBC Hgb Hct MCV MCH MCHC RDW Plt Count MPV Immature Gran % (Auto) Neut % (Auto) Lymph % (Auto) Baker % (Auto) Eos % (Auto) Baso % (Auto) Lymph # (Auto) Baker # (Auto) Eos # (Auto) Baso # (Auto) Abs Immat Gran (auto) Absolute Neuts (auto) Absolute Nucleated RBC Nucleated RBC % (auto) PT 55.9 H INR 4.6 H D APTT 47.6 H Sodium Potassium Chloride Carbon Dioxide Anion Gap BUN Creatinine Estim Creat Clear Calc Estimated GFR Random Glucose Lactic Acid Calcium Magnesium Total Bilirubin Direct Bilirubin AST ALT Alkaline Phosphatase B-Natriuretic Peptide Total Protein Albumin Urine Color Yellow Urine Appearance Clear Urine pH 5.5 Ur Specific [place] <= 1.005 Urine Protein Negative Urine Glucose (UA) Negative Urine Ketones Negative Urine Blood Negative Urine Nitrite Negative Ur Leukocyte Esterase Negative Respiratory Panel Spence Adenovirus (Rapid PCR) B.pert (TEM-PCR) B.parapertussis DNA PCR C. pneumoniae DNA (PCR) Coronavirus OC43 (PCR) Coronavirus HKU1 (PCR) Coronavirus 229E (PCR) COVID-19 (ZACK) Negative COVID-19 Clin Com See Note Coronavirus NL63 (PCR) Human Metapneumovir PCR Influenza A (RT-PCR) Influenza B (RT-PCR) M. pneumoniae (PCR) Parainfluenza 1 (PCR) Parainfluenza 2 (PCR) Parainfluenza 3 (PCR) Parainfluenza 4 (PCR) RSV (PCR) Entero/Rhino (PCR) SARS-CoV-2 RNA (RT-PCR) 04/18/23 04/18/23 04/19/23 13:15 13:15 05:42 WBC 9.0 RBC 4.20 L Hgb 12.1 L Hct 38.4 L MCV 91.4 MCH 28.8 MCHC 31.5 RDW 17.5 H Plt Count 244 MPV 10.9 Immature Gran % (Auto) 0.4 Neut % (Auto) 80.7 H Lymph % (Auto) 12.0 L Baker % (Auto) 6.8 Eos % (Auto) 0.0 Baso % (Auto) 0.1 Lymph # (Auto) 1.1 L Baker # (Auto) 0.6 Eos # (Auto) 0.0 Baso # (Auto) 0.0 Abs Immat Gran (auto) 0.04 H Absolute Neuts (auto) 7.3 Absolute Nucleated RBC 0.030 H Nucleated RBC % (auto) 0.3 H PT INR APTT Sodium Potassium Chloride Carbon Dioxide Anion Gap BUN Creatinine Estim Creat Clear Calc Estimated GFR Random Glucose Lactic Acid 1.1 Calcium Magnesium Total Bilirubin Direct Bilirubin AST ALT Alkaline Phosphatase B-Natriuretic Peptide Total Protein Albumin Urine Color Urine Appearance Urine pH Ur Specific [place] Urine Protein Urine Glucose (UA) Urine Ketones Urine Blood Urine Nitrite Ur Leukocyte Esterase Respiratory Panel Spence See Note Adenovirus (Rapid PCR) Not Detected B.pert (TEM-PCR) Not Detected B.parapertussis DNA PCR Not Detected C. pneumoniae DNA (PCR) Not Detected Coronavirus OC43 (PCR) Not Detected Coronavirus HKU1 (PCR) Not Detected Coronavirus 229E (PCR) Not Detected COVID-19 (ZACK) COVID-19 Clin Com Coronavirus NL63 (PCR) Not Detected Human Metapneumovir PCR Not Detected Influenza A (RT-PCR) Not Detected Influenza B (RT-PCR) Not Detected M. pneumoniae (PCR) Not Detected Parainfluenza 1 (PCR) Not Detected Parainfluenza 2 (PCR) Not Detected Parainfluenza 3 (PCR) Not Detected Parainfluenza 4 (PCR) Not Detected RSV (PCR) Not Detected Entero/Rhino (PCR) Not Detected SARS-CoV-2 RNA (RT-PCR) Not Detected 04/19/23 04/19/23 05:42 05:42 WBC RBC Hgb Hct MCV MCH MCHC RDW Plt Count MPV Immature Gran % (Auto) Neut % (Auto) Lymph % (Auto) Baker % (Auto) Eos % (Auto) Baso % (Auto) Lymph # (Auto) Baker # (Auto) Eos # (Auto) Baso # (Auto) Abs Immat Gran (auto) Absolute Neuts (auto) Absolute Nucleated RBC Nucleated RBC % (auto) PT 41.6 H INR 3.4 H APTT Sodium 136 Potassium 4.8 Chloride 101 Carbon Dioxide 25 Anion Gap 15 BUN 33 H Creatinine 1.77 H Estim Creat Clear Calc 41.4 Estimated GFR 37 Random Glucose 135 H Lactic Acid Calcium 9.7 D Magnesium 1.5 L Total Bilirubin Direct Bilirubin AST ALT Alkaline Phosphatase B-Natriuretic Peptide Total Protein Albumin Urine Color Urine Appearance Urine pH Ur Specific [place] Urine Protein Urine Glucose (UA) Urine Ketones Urine Blood Urine Nitrite Ur Leukocyte Esterase Respiratory Panel Spence Adenovirus (Rapid PCR) B.pert (TEM-PCR) B.parapertussis DNA PCR C. pneumoniae DNA (PCR) Coronavirus OC43 (PCR) Coronavirus HKU1 (PCR) Coronavirus 229E (PCR) COVID-19 (ZACK) COVID-19 Clin Com Coronavirus NL63 (PCR) Human Metapneumovir PCR Influenza A (RT-PCR) Influenza B (RT-PCR) M. pneumoniae (PCR) Parainfluenza 1 (PCR) Parainfluenza 2 (PCR) Parainfluenza 3 (PCR) Parainfluenza 4 (PCR) RSV (PCR) Entero/Rhino (PCR) SARS-CoV-2 RNA (RT-PCR) ECG Interpretation: EKG with sinus rhythm at 70/Min; premature atrial complexes cannot exclude old lateral infarct. Nonspecific changes in inferior leads. Imaging Radiologist's impression: Impressions Chest X-Ray 04/18/23 11:07 IMPRESSION: No evidence for acute disease in the chest. Interstitial lung disease and bilateral linear scarring or chronic subsegmental atelectasis in the lingula to previous exams. Assessment and Plan (1) Acute and chronic respiratory failure with hypoxia: Status: Acute (2) ILD (interstitial lung disease): Status: Acute (3) Acute CHF: Status: Acute Plan Cardiac BNP is 894. In 2020, it was 140. High sensitive troponin is not available. Overall, probable acute on chronic right ventricular failure related to intrinsic lung disease. We do not know his left-sided cardiac function and he could have some cardiomyopathy related to prior LA. Will get echocardiogram for further evaluation. Otherwise, continue IV diuretics. However, he already has elevated creatinine and will need to be cautious. Supplemental oxygen as required. Check troponins. Discussed with Dr. Forbes Discussed with son and at bedside. Time Spent With Patient Time: Total time managing care of this patient today ____ minutes. Procedures Date of Service Date of Service: 04/19/23
--- NOTE | 2023-04-19 10:51 | MHC.CM.PN ---
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 PT LIVES WITH SPOUSE IN A [facility]. USES [employer]ATOR AT BASELINE. HAS 02 AT 2 L AT BASELINE VIA [employer]. 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 PT IS OPPOSED TO STR BUT WILLING TO HAVE A VNA IF RECOMMENDED. FIRST CHOICE IS [facility]. REFERRAL SENT. +HCP +COVID X [address] JOSEPH AT [facility]. DP: HOME WITH RESUMPTION OF VICE PRESIDENT [employer] SERVICES AND VNA IF RECOMMENDED. SON WILL TRANSPORT. CM WILL CONTINUE TO FOLLOW FOR ANY CHANGE IN PLAN/DC NEEDS.
[2023-04-19] MEDS: Albuterol Sulfate 90 MCG 8 GM INHALER 2 PUFF INHALE (11:39)
[2023-04-19 12:49] LABS: Troponin-I High Sensitivity 12.2 ng/L (<3.5-35.0)
--- NOTE | 2023-04-19 13:30 | HO.PM.IMPN ---
Subjective Subjective Date of Service: 04/19/23 Interval History: Feeling better this morning, denies chest pain, no shortness of breath feels leg edema has significantly improved slept well overnight no acute issues, on 4 L of oxygen finger oximetry 90-92, denies nausea, no vomiting, no abdominal pain tolerating diet, denies lightheadedness or dizziness. Review of Systems Review of Systems: Yes all other systems are reviewed and are negative Physical Exam Vital Signs: Vital Signs: Last Vital Signs Temp 97.4 F 04/19/23 08:00 Pulse 78 04/19/23 11:40 Resp 18 04/19/23 11:40 BP 152/72 H 04/19/23 08:00 Pulse Ox 92 04/19/23 08:00 O2 Del Method Nasal Cannula 04/19/23 08:00 O2 Flow Rate 5 04/19/23 08:00 Oxygen Flow Rate 13 04/18/23 10:38 BMI result Body Mass Index 30.7 Const: Other: General awake alert x3, resting comfortably in no acute distress. Neck supple no JVD. CVS regular rate rhythm, Respiratory lungs bilateral expiratory wheeze, diminished breath sounds, no crackles, no use of accessory muscles, no tachypnea. Gastrointestinal abdomen soft, nontender, bowel sounds audible, no guarding , no rigidity. Extremities bilateral lower extremity edema improving. Neuro nonfocal , moving all 4 extremity speech clear. Skin no rash Psych appropriate affect Objective Data Active Medications Acetaminophen (Acetaminophen 325 Mg Tablet) 650 mg PO Q6H PRN PRN Reason: Pain, Mild (Pain Scale 1-3) Albuterol Sulfate (Albuterol Sulfate 90 Mcg 8 Gm Inhaler) 2 puff INHALE Q4H PRN PRN Reason: Shortness Of Breath Or Wheezing Last Admin: 04/19/23 11:39 Dose: 2 puff Documented By: MORA Amlodipine Besylate (Amlodipine Besylate 5 Mg Tablet) 5 mg PO DAILY COUNT INCLUDES [facility]; Protocol Last Admin: 04/19/23 08:43 Dose: 5 mg Documented By: COTEMA Aspirin (Aspirin Enteric Coated 81 Mg Tablet.) 81 mg PO DAILY COUNT INCLUDES THE [facility] Last Admin: 04/19/23 08:43 Dose: 81 mg Documented By: COTEMA Atorvastatin Calcium (Atorvastatin Calcium 40 Mg Tablet) 40 mg PO BEDTIME COUNT INCLUDES THE [facility] Last Admin: 04/18/23 21:05 Dose: 40 mg Documented By: KELLE Docusate Sodium (Docusate Sodium 100 Mg Capsule) 100 mg PO DAILY PRN PRN Reason: Constipation Fluticasone/Vilanterol (Fluticasone/Vilanterol 200/25 Blst.W.Dev) 1 puff INHALE DAILY COUNT INCLUDES THE [facility] Last Admin: 04/19/23 08:00 Dose: 1 puff Documented By: BRESNE Folic Acid (Folic Acid 1 Mg Tablet) 1 mg PO DAILY COUNT INCLUDES THE [facility] Last Admin: 04/19/23 08:43 Dose: 1 mg Documented By: COTEMA Furosemide (Furosemide 40 Mg/4 Ml Vial) 40 mg IVPUSH DAILY COUNT INCLUDES THE [facility]; Protocol Last Admin: 04/19/23 08:43 Dose: 40 mg Documented By: COTEMA Metoprolol Tartrate (Metoprolol Tartrate 50 Mg Tablet) 50 mg PO BID COUNT INCLUDES THE [facility]; Protocol Last Admin: 04/19/23 08:43 Dose: 50 mg Documented By: COTEMA Nitroglycerin (Nitroglycerin 0.4 Mg Tab.Subl) 0.4 mg SUBLINGUAL Q5M PRN PRN Reason: Chest Pain Omeprazole (Omeprazole 40 Mg Capsule.Dr) 40 mg PO DAILY@0630 COUNT INCLUDES THE [facility] Last Admin: 04/19/23 05:57 Dose: 40 mg Documented By: KELLE Ondansetron HCl (Ondansetron Hcl 4 Mg/2 Ml Vial) 4 mg IVPUSH Q8H PRN PRN Reason: Nausea and Vomiting Pharmacy Consult (Consult Rx Perform Med Rec) 1 each MISCELLANE ONCE PRN PRN Reason: Consult order Prednisone (Prednisone 2.5 Mg Tablet) 7.5 mg PO DAILY COUNT INCLUDES THE [facility] Last Admin: 04/19/23 08:43 Dose: 7.5 mg Documented By: COTEMA Sodium Chloride (0.9 % Sodium Chloride Flush 3 Ml Syringe) 3 ml IVFLUSH QSHIFT COUNT INCLUDES THE [facility] Last Admin: 04/19/23 08:43 Dose: 3 ml Documented By: COTEMA Timolol Maleate (Timolol Maleate 0.5 % Oph Kylah 5 Ml Drbtl) 1 drop EYE-BOTH DAILY COUNT INCLUDES THE [facility] Last Admin: 04/19/23 08:42 Dose: Not Given Documented By: COTEMA Non-Admin Reason: Med Not Available Tramadol HCl (Tramadol Hcl 50 Mg Tablet) 50 mg PO BID PRN PRN Reason: Pain, Moderate Last Admin: 04/18/23 21:05 Dose: 50 mg Documented By: KELLE Vitamin D (Cholecalciferol (Vitamin D3) 25 Mcg Tablet) 25 mcg PO DAILY JEN Last Admin: 04/19/23 08:43 Dose: 25 mcg Documented By: JEFRY Labs 04/19/23 05:42 04/19/23 05:42 Labs: Laboratory Results - last 24 hr 04/18/23 04/18/23 04/19/23 13:15 13:15 05:42 MCV 91.4 MCH 28.8 MCHC 31.5 RDW 17.5 H Plt Count 244 MPV 10.9 Immature Gran % (Auto) 0.4 Neut % (Auto) 80.7 H Lymph % (Auto) 12.0 L [place] % (Auto) 6.8 Eos % (Auto) 0.0 Baso % (Auto) 0.1 Lymph # (Auto) 1.1 L [place] # (Auto) 0.6 Eos # (Auto) 0.0 Baso # (Auto) 0.0 Abs Immat Gran (auto) 0.04 H Absolute Neuts (auto) 7.3 Absolute Nucleated RBC 0.030 H Nucleated RBC % (auto) 0.3 H PT INR Anion Gap Estim Creat Clear Calc Estimated GFR Random Glucose Lactic Acid 1.1 Calcium Magnesium Troponin I High Sens Respiratory Panel Spence See Note Adenovirus (Rapid PCR) Not Detected B.pert (TEM-PCR) Not Detected B.parapertussis DNA PCR Not Detected C. pneumoniae DNA (PCR) Not Detected Coronavirus OC43 (PCR) Not Detected Coronavirus HKU1 (PCR) Not Detected Coronavirus 229E (PCR) Not Detected Coronavirus NL63 (PCR) Not Detected Human Metapneumovir PCR Not Detected Influenza A (RT-PCR) Not Detected Influenza B (RT-PCR) Not Detected M. pneumoniae (PCR) Not Detected Parainfluenza 1 (PCR) Not Detected Parainfluenza 2 (PCR) Not Detected Parainfluenza 3 (PCR) Not Detected Parainfluenza 4 (PCR) Not Detected RSV (PCR) Not Detected Entero/Rhino (PCR) Not Detected SARS-CoV-2 RNA (RT-PCR) Not Detected 04/19/23 04/19/23 04/19/23 05:42 05:42 12:14 MCV MCH MCHC RDW Plt Count MPV Immature Gran % (Auto) Neut % (Auto) Lymph % (Auto) [place] % (Auto) Eos % (Auto) Baso % (Auto) Lymph # (Auto) Screven # (Auto) Eos # (Auto) Baso # (Auto) Abs Immat Gran (auto) Absolute Neuts (auto) Absolute Nucleated RBC Nucleated RBC % (auto) PT 41.6 H INR 3.4 H Anion Gap 15 Estim Creat Clear Calc 41.4 Estimated GFR 37 Random Glucose 135 H Lactic Acid Calcium 9.7 D Magnesium 1.5 L Troponin I High Sens 12.2 Respiratory Panel Spence Adenovirus (Rapid PCR) B.pert (TEM-PCR) B.parapertussis DNA PCR C. pneumoniae DNA (PCR) Coronavirus OC43 (PCR) Coronavirus HKU1 (PCR) Coronavirus 229E (PCR) Coronavirus NL63 (PCR) Human Metapneumovir PCR Influenza A (RT-PCR) Influenza B (RT-PCR) M. pneumoniae (PCR) Parainfluenza 1 (PCR) Parainfluenza 2 (PCR) Parainfluenza 3 (PCR) Parainfluenza 4 (PCR) RSV (PCR) Entero/Rhino (PCR) SARS-CoV-2 RNA (RT-PCR) Assessment and Plan (1) Acute on chronic right heart failure: Status: Acute (2) Acute and chronic respiratory failure with hypoxia: Status: Acute (3) Acute kidney injury: Status: Acute Plan 77 year old female with asthma/copd overlap, ILD, chronic hypoxemic respiratory failure, paroxysmal atrial fibrillation anticoagulated on coumadin, htn, RA on methotrexate, and glaucoma admitted for acute on chronic hypoxemic respiratory failure and acute CHF exacerbation. #Acute on chronic hypoxemic respiratory failure due to acute on chronic right ventricular failure due to intrinsic lung disease/ pulmonary hypertension , echo showed normal EF and diastolic function normal right systolic function on 2L supplemental O2 at baseline due to chronic lung disease, oxygenation improving will gradually wean oxygen CXR showing increased interstitial markings likely pulmonary edema.? BNP 900, gentle IV diuretics with IV Lasix 40 mg daily follow BMP, BNP #Acute kidney injury -likely cardiorenal , will avoid excessive diuresis hold nephrotoxic medications and hypotension follow renal function #Acute hypomagnesemia magnesium improved from 1.3-1.5, cautiously replace with NACHO follow magnesium level #Paroxysmal atrial fibrillation- rate controlled -INR supratherapeutic. Goal 2.0-3.0. Hold coumadin today, resume once INR therapeutic -continue metoprolol for rate control # chronic persistent asthma/ COPD overlap/ interstitial lung disease - continue home inhalers, albuterol p.r.n. and add scheduled updraft - continue home prednisone 7.5 mg daily and steroid inhalers #HTN - reasonably controlled.? Hold losartan, hydrochlorothiazide in setting of NACHO - continue amlodipine and metoprolol 50 b.i.d. #rheumatoid arthritis -continue prednisone, Hold methotrxate and humira. DVT prophyloaxis- SCPs, INR? supratherapeutic, resume Coumadin once therapeutic ?full code Pt requires continued inpt stay for management of acute chf exacerbation wtih acute on chronic hypoxemic respiratory failure requiring IV diuresis and increased supplemental O2 from baseline as well as expert consultation. Time Spent With Patient Time: Total time managing care of this patient today ____ minutes. Quality Stroke Does the patient have a stroke diagnosis?: No VTE Prior VTE?: No VTE Risk Level:: Medical - moderate - high VTE Device Contraindication: N/A - Device Ordered VTE Drug Contraindication: Treatment Not Indicated
[2023-04-19] MEDS: Albuterol/Iprat 2.5/0.5MG 3 ML AMPUL.NEB INHALE ×2 (16:05→20:03)
[2023-04-19] MEDS: Atorvastatin Calcium 40 MG TABLET PO (21:04)
[2023-04-20] VITALS (8 sets, daily range): BP systolic 121–148; BP diastolic 57–72; PULSE 69–106; RESP 16–24; TEMP 36.2–37.1; O2SAT 86–95
[2023-04-20] MEDS: Omeprazole 40 MG CAPSULE.DR PO (05:38)
[2023-04-20 06:52] LABS: B Type Natriuretic Peptide 708 pg/mL (<100)
[2023-04-20 06:58] LABS: Anion Gap 14 (12-20); Blood Urea Nitrogen 40 mg/dL (9-16); Calcium 9.3 mg/dL (8.4-10.2); Carbon Dioxide 26 mmol/L (22-29); Chloride 103 mmol/L (96-108); Creatinine Clr Calc Pharmacy 44.9; Estimated Glomerular Filt Rate 41; Glucose Random 88 mg/dL (60-115); Potassium 4.2 mmol/L (3.3-5.1); Sodium 139 mmol/L (135-145)
[2023-04-20] MEDS: Fluticasone/Vilanterol 200/25 BLST.W.DEV 1 PUFF INHALE (07:38)
[2023-04-20] MEDS: Albuterol/Iprat 2.5/0.5MG 3 ML AMPUL.NEB INHALE ×4 (07:42→20:04)
[2023-04-20 08:04] LABS: Magnesium 1.5 mg/dL (1.6-2.6)
[2023-04-20] MEDS: Folic Acid 1 MG TABLET PO (08:24)
[2023-04-20] MEDS: 0.9 % Sodium Chloride Flush 3 ML SYRINGE IVFLUSH ×2 (08:24→14:42)
[2023-04-20] MEDS: predniSONE 2.5 MG TABLET 7.5 MG PO (08:24)
[2023-04-20] MEDS: Aspirin Enteric Coated 81 MG TABLET.DR PO (08:24)
[2023-04-20] MEDS: amLODIPine Besylate 5 MG TABLET PO (08:24)
[2023-04-20] MEDS: Metoprolol Tartrate 50 MG TABLET PO ×2 (08:24→21:08)
[2023-04-20] MEDS: Cholecalciferol (Vitamin D3) 25 MCG TABLET PO (08:25)
--- NOTE | 2023-04-20 09:52 | P.PNCA_ITS ---
Subjective Subjective Date of Service: 04/20/23 Interval history: Patient states that he is feeling better. Shortness of breath is improved. Review of Systems Review of Systems Yes all other systems are reviewed and are negative Constitutional: Reports as per HPI and Reports no additional constitutional complaints Eyes: Reports as per HPI and Denies no additional eye complaints Denies system reviewed and no additional complaints, except as documented and Reports as per HPI Cardiovascular: Reports as per HPI, Reports no additional cardiovascular co mplaints, Denies acrocyanosis, Denies cool extremities, Denies chest pain, Reports leg edema, Denies lightheadedness, Denies palpitations and Reports dyspnea Respiratory: Reports as per HPI, Denies no additional respiratory complaints and Reports dyspnea Gastrointestinal: Reports as per HPI and Denies no additional gastrointestinal complaints Genitourinary: Reports no additional male genitourinary complaints and Reports as per HPI Musculoskeletal: Reports no additional musculoskeletal complaints and Reports as per HPI Skin/Breast: Reports system reviewed and no additional complaints, except as docu Reports system reviewed and no additional complaints, except as documented and Reports as per HPI Psychiatric: Reports no additional psychiatric complaints and Reports as per HPI Endocrine: Reports no additional endocrine complaints, Reports as per HPI and Denies palpitations Hematologic/Lymphatic: Reports no additional hematologic/lymphatic complaints and Reports as per HPI Allergic/Immunologic: Reports no additional allergic/immunologic complaints and Reports as per HPI Physical Exam Vital Signs: Last Vital Signs Temp 97.2 F 04/20/23 07:19 Pulse 73 04/20/23 07:41 Resp 16 04/20/23 07:41 BP 143/63 H 04/20/23 07:19 Pulse Ox 86 L 04/20/23 07:19 O2 Del Method Nasal Cannula 04/20/23 08:39 O2 Flow Rate 2 04/20/23 08:39 FiO2 72 04/20/23 08:39 Oxygen Flow Rate 13 04/18/23 10:38 BMI result Body Mass Index 30.7 Const General: comfortable and no acute distress Orientation/consciousness: patient oriented x3 HEENT Other: Unremarkable Head: Yes normal to inspection Neck Neck: Yes normal visual inspection Chest Chest palpation & inspection: normal inspection of the chest Resp Auscultation: wheezes Cardio Palpation: normal PMI Heart sounds: S1 normal heart sound present, S2 normal heart sound present, no gallops, no murmurs and no rubs GI Palpation (GI): Soft to palpation Back/Spine/Pelvis Other: unremarkable Skin General skin exam: no rashes or lesions noted Neuro General: patient oriented x3 Extrem Other: 1+ edema General: Yes normal to inspection Psych Mental Status: mental status grossly normal Objective Labs and Meds 04/19/23 05:42 04/20/23 05:38 Lab results: Laboratory Results - last 24 hr 04/19/23 04/20/23 04/20/23 12:14 05:38 05:38 Sodium 139 Potassium 4.2 Chloride 103 Carbon Dioxide 26 Anion Gap 14 BUN 40 H Creatinine 1.63 H Estim Creat Clear Calc 44.9 Estimated GFR 41 Random Glucose 88 Calcium 9.3 Magnesium 1.5 L Troponin I High Sens 12.2 B-Natriuretic Peptide 708 H Progress Note: A&P Assessment and plan (1) Acute and chronic respiratory failure with hypoxia: Status: Acute (2) ILD (interstitial lung disease): Status: Acute (3) Acute on chronic right heart failure: Status: Acute Plan Cardiac BNP is 894. In 2020, it was 140. High sensitive troponin within limits. Echocardiogram with LVEF of 65%. Moderately increased ventricular size, but normal function. Mild tricuspid regurgitation and moderate pulmonary hypertension. Overall, suspect acute on chronic right ventricular failure related to intrinsic lung disease. Empiric diuretic therapy. He already has renal insufficiency and hence needs to be cautious. Otherwise, address primary pulmonary issues. Discussed with hospitalist. Time Spent With Patient Time: Total time managing care of this patient today 45 minutes. This includes time spent in review of chart, laboratory data, imaging studies, review of telemetry, counseling patient, family, discussion with hospitalist, RN, documentation, coordination of care. Progress Note: Quality Stroke Does the patient have a stroke diagnosis?: No Procedures Date of Service Date of Service: 04/20/23
--- NOTE | 2023-04-20 13:54 | HO.PM.IMPN ---
Subjective Subjective Date of Service: 04/20/23 Interval History: History obtained via forester aide, is at bedside patient feeling better offers no acute symptoms, less lower extremity swelling, no cough, no fever, no chills tolerating diet no nausea no vomiting no abdominal pain, requiring 5 L of oxygen finger oximetry 90 91% Review of Systems General no headache no dizziness no fever chills. CVS no chest pain, no palpitation. Respiratory no cough, no sob Gastrointestinal no nausea no vomiting, no abdominal pain All other system reviewed and negative Physical Exam Vital Signs: Vital Signs: Last Vital Signs Temp 97.2 F 04/20/23 07:19 Pulse 80 04/20/23 12:20 Resp 18 04/20/23 12:20 BP 143/63 H 04/20/23 07:19 Pulse Ox 86 L 04/20/23 07:19 O2 Del Method Nasal Cannula 04/20/23 08:39 O2 Flow Rate 2 04/20/23 08:39 FiO2 72 04/20/23 08:39 Oxygen Flow Rate 13 04/18/23 10:38 BMI result Body Mass Index 30.7 Const: Other: General awake alert x3, resting comfortably in no acute distress.? Neck supple no JVD. CVS? regular rate rhythm, Respiratory lungs significant improvement in expiratory wheeze, occasional wheezing, diminished breath sounds, no crackles, no use of accessory muscles, no tachypnea. Gastrointestinal abdomen soft, nontender, bowel sounds audible, no guarding , no rigidity. Extremities bilateral lower extremity edema improving. Neuro nonfocal , moving all 4 extremity speech clear. Skin no rash Psych appropriate affect Objective Data Active Medications Acetaminophen (Acetaminophen 325 Mg Tablet) 650 mg PO Q6H PRN PRN Reason: Pain, Mild (Pain Scale 1-3) Albuterol Sulfate (Albuterol Sulfate 90 Mcg 8 Gm Inhaler) 2 puff INHALE Q4H PRN PRN Reason: Shortness Of Breath Or Wheezing Last Admin: 04/19/23 11:39 Dose: 2 puff Documented By: MORA Albuterol/Ipratropium (Albuterol/Iprat 2.5/0.5mg 3 Ml Ampul.Neb) 3 ml INHALE QID JEN Last Admin: 04/20/23 12:19 Dose: 3 ml Documented By: RELL Amlodipine Besylate (Amlodipine Besylate 5 Mg Tablet) 5 mg PO DAILY [facility]; Protocol Last Admin: 04/20/23 08:24 Dose: 5 mg Documented By: ARIEL Aspirin (Aspirin Enteric Coated 81 Mg Tablet.) 81 mg PO DAILY [facility] Last Admin: 04/20/23 08:24 Dose: 81 mg Documented By: ARIEL Atorvastatin Calcium (Atorvastatin Calcium 40 Mg Tablet) 40 mg PO BEDTIME [facility] Last Admin: 04/19/23 21:04 Dose: 40 mg Documented By: KELLE Docusate Sodium (Docusate Sodium 100 Mg Capsule) 100 mg PO DAILY PRN PRN Reason: Constipation Fluticasone/Vilanterol (Fluticasone/Vilanterol 200/25 Blst.W.Dev) 1 puff INHALE DAILY [facility] Last Admin: 04/20/23 07:38 Dose: 1 puff Documented By: RELL Folic Acid (Folic Acid 1 Mg Tablet) 1 mg PO DAILY [facility] Last Admin: 04/20/23 08:24 Dose: 1 mg Documented By: ARIEL Furosemide (Furosemide 20 Mg Tablet) 20 mg PO DAILY [facility]; Protocol Metoprolol Tartrate (Metoprolol Tartrate 50 Mg Tablet) 50 mg PO BID [facility]; Protocol Last Admin: 04/20/23 08:24 Dose: 50 mg Documented By: ARIEL Nitroglycerin (Nitroglycerin 0.4 Mg Tab.Subl) 0.4 mg SUBLINGUAL Q5M PRN PRN Reason: Chest Pain Omeprazole (Omeprazole 40 Mg Capsule.) 40 mg PO DAILY@0630 [facility] Last Admin: 04/20/23 05:38 Dose: 40 mg Documented By: KELLE Ondansetron HCl (Ondansetron Hcl 4 Mg/2 Ml Vial) 4 mg IVPUSH Q8H PRN PRN Reason: Nausea and Vomiting Pharmacy Consult (Consult Rx Perform Med Rec) 1 each MISCELLANE ONCE PRN PRN Reason: Consult order Prednisone (Prednisone 2.5 Mg Tablet) 7.5 mg PO DAILY [facility] Last Admin: 04/20/23 08:24 Dose: 7.5 mg Documented By: ARIEL Sodium Chloride (0.9 % Sodium Chloride Flush 3 Ml Syringe) 3 ml IVFLUSH QSHIFT [facility] Last Admin: 04/20/23 08:24 Dose: 3 ml Documented By: ARIEL Timolol Maleate (Timolol Maleate 0.5 % Oph Kylah 5 Ml Drbtl) 1 drop EYE-BOTH DAILY [facility] Last Admin: 04/20/23 08:26 Dose: Not Given Documented By: ARIEL Non-Admin Reason: Med Not Available Tiotropium Frontier (Tiotropium Frontier 18 Mcg Cap.W.Dev) 1 puff INHALE RDAILY [facility] Last Admin: 04/20/23 07:39 Dose: Not Given Documented By: RELL Non-Admin Reason: pharmacy called Tramadol HCl (Tramadol Hcl 50 Mg Tablet) 50 mg PO BID PRN PRN Reason: Pain, Moderate Last Admin: 04/18/23 21:05 Dose: 50 mg Documented By: KELLE Vitamin D (Cholecalciferol (Vitamin D3) 25 Mcg Tablet) 25 mcg PO DAILY [facility] Last Admin: 04/20/23 08:25 Dose: 25 mcg Documented By: ARIEL Labs 04/19/23 05:42 04/20/23 05:38 Labs: Laboratory Results - last 24 hr 04/20/23 04/20/23 05:38 05:38 Anion Gap 14 Estim Creat Clear Calc 44.9 Estimated GFR 41 Random Glucose 88 Calcium 9.3 Magnesium 1.5 L B-Natriuretic Peptide 708 H Microbiology Microbiology Results: Microbiology 04/18/23 13:15 Blood Culture - Preliminary Blood - Venous No growth after 24 hours. 04/18/23 13:15 Blood Culture - Preliminary Blood - Venous No growth after 24 hours. Assessment and Plan (1) Acute on chronic right heart failure: Status: Acute (2) Acute and chronic respiratory failure with hypoxia: Status: Acute (3) Acute kidney injury: Status: Acute Plan 77 year old female with asthma/copd overlap, ILD, chronic hypoxemic respiratory failure, paroxysmal atrial fibrillation anticoagulated on coumadin, htn, RA on methotrexate, and glaucoma admitted for acute on chronic hypoxemic respiratory failure and acute CHF exacerbation. #Acute on chronic hypoxemic respiratory failure due to acute on chronic right ventricular failure due to intrinsic lung disease/ pulmonary hypertension , echo showed normal EF and diastolic function normal right systolic function on 2L supplemental O2 at baseline due to chronic lung disease, remains hypoxic on 5 L of oxygen, will gradually wean oxygen oxygen goal 90-92% CXR showed no acute disease, BNP 894 improved to 708,give IV Lasix 40 mg 1 more day today follow BMP and adjust dose with possible discharge on Lasix 20 mg daily follow BMP, BNP Recommend to follow up with primary hydraulic riveter Dr. Vladislav Conner. #Acute kidney injury Creatinine improved from 1.77-1.6 -likely cardiorenal , will avoid excessive diuresis, hold losartan and hydrochlorothiazide, obtain renal consult #Acute hypomagnesemia magnesium improved from 1.3-1.5, cautiously replace with NACHO follow magnesium level #Paroxysmal atrial fibrillation- rate controlled -INR supratherapeutic on admission ,today 2.6,will resume coumadin follow PT/inr. -continue metoprolol for rate control # chronic persistent asthma/ COPD overlap/ interstitial lung disease - continue home inhalers breo and albuterol p.r.n.,added scheduled DuoNeb updraft that is helping patient, will arrange for home updraft if qualifies - continue home prednisone 7.5 mg daily #HTN - reasonably controlled.? Hold losartan, hydrochlorothiazide in setting of NACHO - continue amlodipine and metoprolol 50 b.i.d. #rheumatoid arthritis -continue prednisone, Hold methotrxate and humira. DVT prophyloaxis- SCPs, INR? supratherapeutic, resume Coumadin once therapeutic ?full code Pt requires continued inpt. stay for management of acute chf exacerbation [facility] acute on chronic hypoxemic respiratory failure requiring increased supplemental O2 from baseline as well as expert consultation. Time Spent With Patient Time: Total time managing care of this patient today ____ minutes. Quality Stroke Does the patient have a stroke diagnosis?: No VTE Prior VTE?: No VTE Risk Level:: Medical - moderate - high VTE Device Contraindication: N/A - Device Ordered VTE Drug Contraindication: Treatment Not Indicated
[2023-04-20] MEDS: Furosemide 20 MG TABLET PO (13:58)
[2023-04-20] MEDS: Furosemide 40 MG/4 ML VIAL IVPUSH (14:42)
[2023-04-20 16:04] LABS: INTERNATIONAL NORM RATIO 2.6 (0.9-1.1); Prothrombin Time 30.7 SEC (10.0-13.1)
[2023-04-20] MEDS: Magnesium Oxide 400 MG TABLET PO (17:18)
[2023-04-20] MEDS: Warfarin Sodium 2.5 MG TABLET PO (17:18)
[2023-04-20] MEDS: Atorvastatin Calcium 40 MG TABLET PO (21:08)
[2023-04-20] MEDS: Metoprolol Tartrate 5 MG/5 ML VIAL IVPUSH (21:48)
[2023-04-20] MEDS: traMADoL HCL 50 MG TABLET PO (21:55)
[2023-04-21] VITALS (9 sets, daily range): BP systolic 121–158; BP diastolic 59–78; PULSE 67–95; RESP 16–18; TEMP 36.2–36.6; O2SAT 90–94
[2023-04-21] MEDS: Omeprazole 40 MG CAPSULE.DR PO (06:06)
[2023-04-21 07:16] LABS: INTERNATIONAL NORM RATIO 2.3 (0.9-1.1); Prothrombin Time 27.8 SEC (10.0-13.1)
[2023-04-21 07:41] LABS: Anion Gap 16 (12-20); Blood Urea Nitrogen 32 mg/dL (9-16); Calcium 9.3 mg/dL (8.4-10.2); Carbon Dioxide 27 mmol/L (22-29); Chloride 103 mmol/L (96-108); Creatinine Clr Calc Pharmacy 52.7; Estimated Glomerular Filt Rate 49; Glucose Random 90 mg/dL (60-115); Potassium 3.9 mmol/L (3.3-5.1); Sodium 142 mmol/L (135-145)
[2023-04-21] MEDS: Albuterol/Iprat 2.5/0.5MG 3 ML AMPUL.NEB INHALE ×4 (08:12→19:38)
[2023-04-21] MEDS: Fluticasone/Vilanterol 200/25 BLST.W.DEV 1 PUFF INHALE (08:12)
[2023-04-21 08:20] LABS: Magnesium 1.4 mg/dL (1.6-2.6)
[2023-04-21] MEDS: Aspirin Enteric Coated 81 MG TABLET.DR PO (08:42)
[2023-04-21] MEDS: Magnesium Sulfate/H2O 2 GM/50 ML PIGGYBACK IV (08:42)
[2023-04-21] MEDS: 0.9 % Sodium Chloride Flush 3 ML SYRINGE IVFLUSH ×3 (08:42→19:54)
[2023-04-21] MEDS: predniSONE 2.5 MG TABLET 7.5 MG PO (08:43)
[2023-04-21] MEDS: Cholecalciferol (Vitamin D3) 25 MCG TABLET PO (08:43)
[2023-04-21] MEDS: Furosemide 20 MG TABLET PO (08:43)
[2023-04-21] MEDS: Metoprolol Tartrate 50 MG TABLET PO ×2 (08:43→19:53)
[2023-04-21] MEDS: Magnesium Oxide 400 MG TABLET PO (08:43)
[2023-04-21] MEDS: Folic Acid 1 MG TABLET PO (08:43)
[2023-04-21] MEDS: amLODIPine Besylate 5 MG TABLET PO (08:44)
--- NOTE | 2023-04-21 11:30 | MHC.CM.PN ---
REFERRAL TO [facility] PATIENT DOES NOT WANT TO DC TO REHAB. FUNCTIONALLY INDEPENDENT
--- NOTE | 2023-04-21 12:34 | PM.CNNEP ---
History of Present Illness Reason for Consult Consult date: 04/21/23 Chief Complaint Chief complaint: CHF Exacerbation History of Present Illness Narrative: 77 year old female with admitted with decompensated CHF found to have worsening kidney function. He initially presented to the ED for evaluation of shortness of breath ongoing for 1.5 weeks and worsening lower extremity edema. There is no report of fever, chills, chest pain. nausea, vomiting or diarrhea. CXR showed increased interstitial markings at the lung bases and bilateral linear scarring. Review of Systems Review of Systems 1`0 points ROS negative except for pertinent in HPI PMFSH Past Medical History Medical History Atrial fibrillation Chronic anticoagulation Chronic hypoxemic respiratory failure COPD exacerbation Hypertension ILD (interstitial lung disease) Lymphadenopathy Rheumatoid arthritis Social History Social History Household Members: Spouse Housing: [facility] Do you presently have visiting nurse or other home services: No Alcohol intake: never Patient Tobacco Use Status: Former Tobacco user Quit Date: 23 years ago Years Smoked: 40 service: No Current occupational status: [employer] Allergies Allergy/AdvReac Type Severity Reaction Status Date / Time No Known Allergies Allergy Unknown NOT Verified 11/21/21 19:48 APPLICABLE Active Medications: Current Medications Acetaminophen (Acetaminophen 325 Mg Tablet) 650 mg PO Q6H PRN PRN Reason: Pain, Mild (Pain Scale 1-3) Albuterol Sulfate (Albuterol Sulfate 90 Mcg 8 Gm Inhaler) 2 puff INHALE Q4H PRN PRN Reason: Shortness Of Breath Or Wheezing Last Admin: 04/19/23 11:39 Dose: 2 puff Albuterol/Ipratropium (Albuterol/Iprat 2.5/0.5mg 3 Ml Ampul.Neb) 3 ml INHALE QID [facility] Last Admin: 04/21/23 11:41 Dose: 3 ml Amlodipine Besylate (Amlodipine Besylate 5 Mg Tablet) 5 mg PO DAILY [facility]; Protocol Last Admin: 04/21/23 08:44 Dose: 5 mg Aspirin (Aspirin Enteric Coated 81 Mg Tablet.) 81 mg PO DAILY [facility] Last Admin: 04/21/23 08:42 Dose: 81 mg Atorvastatin Calcium (Atorvastatin Calcium 40 Mg Tablet) 40 mg PO BEDTIME [facility] Last Admin: 04/20/23 21:08 Dose: 40 mg Docusate Sodium (Docusate Sodium 100 Mg Capsule) 100 mg PO DAILY PRN PRN Reason: Constipation Fluticasone/Vilanterol (Fluticasone/Vilanterol 200/25 Blst.W.Dev) 1 puff INHALE DAILY [facility] Last Admin: 04/21/23 08:12 Dose: 1 puff Folic Acid (Folic Acid 1 Mg Tablet) 1 mg PO DAILY [facility] Last Admin: 04/21/23 08:43 Dose: 1 mg Furosemide (Furosemide 20 Mg Tablet) 20 mg PO DAILY [facility]; Protocol Last Admin: 04/21/23 08:43 Dose: 20 mg Metoprolol Tartrate (Metoprolol Tartrate 50 Mg Tablet) 50 mg PO BID [facility]; Protocol Last Admin: 04/21/23 08:43 Dose: 50 mg Nitroglycerin (Nitroglycerin 0.4 Mg Tab.Subl) 0.4 mg SUBLINGUAL Q5M PRN PRN Reason: Chest Pain Omeprazole (Omeprazole 40 Mg Capsule.Dr) 40 mg PO DAILY@0630 [facility] Last Admin: 04/21/23 06:06 Dose: 40 mg Ondansetron HCl (Ondansetron Hcl 4 Mg/2 Ml Vial) 4 mg IVPUSH Q8H PRN PRN Reason: Nausea and Vomiting Pharmacy Consult (Consult Rx Perform Med Rec) 1 each MISCELLANE ONCE PRN PRN Reason: Consult order Prednisone (Prednisone 2.5 Mg Tablet) 7.5 mg PO DAILY [facility] Last Admin: 04/21/23 08:43 Dose: 7.5 mg Sodium Chloride (0.9 % Sodium Chloride Flush 3 Ml Syringe) 3 ml IVFLUSH QSHIFT [facility] Last Admin: 04/21/23 08:42 Dose: 3 ml Timolol Maleate (Timolol Maleate 0.5 % Oph [place] 5 Ml Drbtl) 1 drop EYE-BOTH DAILY [facility] Last Admin: 04/21/23 09:27 Dose: Not Given Tiotropium [place] (Tiotropium [place] 18 Mcg Cap.W.Dev) 1 puff INHALE RDAILY [facility] Last Admin: 04/21/23 08:12 Dose: 1 puff Tramadol HCl (Tramadol Hcl 50 Mg Tablet) 50 mg PO BID PRN PRN Reason: Pain, Moderate Last Admin: 04/20/23 21:55 Dose: 50 mg Vitamin D (Cholecalciferol (Vitamin D3) 25 Mcg Tablet) 25 mcg PO DAILY [facility] Last Admin: 04/21/23 08:43 Dose: 25 mcg Warfarin Sodium (Warfarin Sodium 2.5 Mg Tablet) 2.5 mg PO SuTuWeThSa@1800 [facility] Last Admin: 04/20/23 17:18 Dose: 2.5 mg Warfarin Sodium (Warfarin Sodium 5 Mg Tablet) 5 mg PO MoFr@1800 [facility] Home Medications Medication Instructions Recorded Confirmed Last Taken Type adalimumab 40 mg/0.4 mL 40 mg subcut Q2W 11/20/21 04/18/23 11/13/21 History subcutaneous pen kit (Humira(CF) Pen) amlodipine 5 mg tablet 1 tab PO DAILY 11/20/21 04/18/23 Unknown History folic acid 400 mcg tablet 800 mcg PO DAILY 11/20/21 04/18/23 Unknown History hydrochlorothiazide 25 mg tablet 1 tab PO DAILY 11/20/21 04/18/23 Unknown History losartan 100 mg tablet 1 tab PO DAILY 11/20/21 04/18/23 Unknown History methotrexate sodium 2.5 mg tablet 5 tab PO WE 11/20/21 04/18/23 Unknown History metoprolol tartrate 50 mg tablet 1 tab PO BID 11/20/21 04/18/23 Unknown History omeprazole 20 mg capsule,delayed 40 mg PO DAILY 11/20/21 04/18/23 Unknown History release rosuvastatin 10 mg tablet 1 tab PO BEDTIME 11/20/21 04/18/23 Unknown History timolol maleate 0.5 % eye drops 1 drp ophthalmic (eye) DAILY 11/20/21 04/18/23 Unknown History tramadol 50 mg tablet 1 tab PO BID PRN Pain, Moderate 11/20/21 04/18/23 Unknown History warfarin 5 mg tablet 5 mg PO MOFR 11/20/21 04/18/23 Unknown History albuterol sulfate 90 mcg/actuation 2 puff inhalation Q4-6H PRN 04/18/23 04/18/23 Unknown History aerosol inhaler Shortness Of Breath Or Wheezing aspirin 81 mg tablet,delayed 81 mg PO DAILY 04/18/23 04/18/23 Unknown History release cholecalciferol (vitamin D3) 25 25 mcg PO DAILY 04/18/23 04/18/23 Unknown History mcg (1,000 unit) capsule (Vitamin D3) fluticasone furoate 200 1 puff inhalation DAILY 04/18/23 04/18/23 Unknown History mcg-vilanterol 25 mcg/dose inhalation powder (Breo Ellipta) nitroglycerin 0.4 mg sublingual 0.4 mg sublingual NEEDED PRN 04/18/23 04/18/23 Unknown History tablet Chest Pain prednisone 2.5 mg tablet 7.5 mg PO DAILY 04/18/23 04/18/23 Unknown History warfarin 5 mg tablet 2.5 mg PO SUTUWETHSA 04/18/23 04/18/23 Unknown History Physical Exam Vital Signs: Last Vital Signs Temp 97.3 F 04/21/23 07:23 Pulse 67 04/21/23 11:44 Resp 16 04/21/23 11:44 BP 158/78 H 04/21/23 07:23 Pulse Ox 91 L 04/21/23 07:23 O2 Del Method Nasal Cannula 04/21/23 07:23 O2 Flow Rate 5.0 04/21/23 07:23 FiO2 72 04/20/23 08:39 Oxygen Flow Rate 13 04/18/23 10:38 BMI result Body Mass Index 30.7 Const General: no acute distress, alert and awake HEENT Head: Yes normocephalic and Yes atraumatic Neck Neck: Yes supple Resp Auscultation: wheezes Cardio Heart sounds: S1 normal heart sound present and S2 normal heart sound present GI Palpation (GI): Soft to palpation and nontender Extrem Right upper extremity: edema Results Lab Results 04/19/23 05:42 04/21/23 05:27 Lab results: Chemistry 04/19/23 04/20/23 04/21/23 05:42 05:38 05:27 Sodium 136 139 142 Potassium 4.8 4.2 3.9 Carbon Dioxide 25 26 27 BUN 33 H 40 H 32 H Creatinine 1.77 H 1.63 H 1.39 Calcium 9.7 D 9.3 9.3 Hematology 04/19/23 05:42 WBC 9.0 Hgb 12.1 L Plt Count 244 Assessment and Plan (1) Acute kidney injury: Status: Acute (2) (HFpEF) heart failure with preserved ejection fraction: Status: Acute Plan NACHO due to congestive nephrosarca c/w type 1 cardio renal syndrome other less likely h/o diastolic dysfunction baseline Scr ~ 1.2 mg/dl REC c/w oral furosemide replace magnesium follow kidney function and electrolytes Time Spent With Patient Time: Total time managing care of this patient today ____ minutes. Procedures Date of Service Date of Service: 04/21/23
--- NOTE | 2023-04-21 15:20 | HO.PM.IMPN ---
Subjective Subjective Date of Service: 04/21/23 Interval History: seen and examined this morning follow up for CHF, NACHO history obtained with assistance of terrazzo worker helper denies sob - however became sob and o2 sat decreased while working with physical therapy chang chest pain, palpitations Review of Systems Review of Systems: Yes all other systems are reviewed and are negative Constitutional Constitutional: Denies chills and Denies fever(s) ENT Ears, Nose, Mouth, and Throat: Denies dizziness Cardiovascular Cardiovascular: Denies chest pain, Denies palpitations, Denies dyspnea and Reports dyspnea on exertion Respiratory Respiratory: Denies cough, Denies dyspnea and Reports dyspnea on exertion Gastrointestinal Gastrointestinal: Denies abdominal pain Neurologic Neurologic: Denies dizziness Endocrine Endocrine: Denies palpitations Physical Exam Vital Signs: Vital Signs: Last Vital Signs Temp 97.1 F 04/21/23 15:15 Pulse 77 04/21/23 15:15 Resp 18 04/21/23 15:15 BP 121/64 04/21/23 15:15 Pulse Ox 92 04/21/23 15:15 O2 Del Method Nasal Cannula 04/21/23 15:15 O2 Flow Rate 4 04/21/23 15:15 FiO2 72 04/20/23 08:39 Oxygen Flow Rate 13 04/18/23 10:38 BMI result Body Mass Index 30.7 Const: General: cooperative, comfortable, no acute distress, alert and awake Nutritional Appearance: average body habitus Orientation/consciousness: patient oriented x3 Resp: Other: diminished breath sounds, scattered expiratory wheezes Effort & Inspection: normal respiratory effort, able to speak in complete sentences, no respiratory distress and no use of accessory muscles GI: Inspection: No distended Palpation (GI): Soft to palpation and nontender Neuro: General: patient oriented x3, moves all extremities and CN's II-XI intact bilaterally Extrem: General: Yes no pedal edema Objective Data Active Medications Acetaminophen (Acetaminophen 325 Mg Tablet) 650 mg PO Q6H PRN PRN Reason: Pain, Mild (Pain Scale 1-3) Albuterol Sulfate (Albuterol Sulfate 90 Mcg 8 Gm Inhaler) 2 puff INHALE Q4H PRN PRN Reason: Shortness Of Breath Or Wheezing Last Admin: 04/19/23 11:39 Dose: 2 puff Documented By: MORA Albuterol/Ipratropium (Albuterol/Iprat 2.5/0.5mg 3 Ml Ampul.Neb) 3 ml INHALE RQID [facility] Amlodipine Besylate (Amlodipine Besylate 5 Mg Tablet) 5 mg PO DAILY [facility]; Protocol Last Admin: 04/21/23 08:44 Dose: 5 mg Documented By: ARIEL Aspirin (Aspirin Enteric Coated 81 Mg Tablet.) 81 mg PO DAILY [facility] Last Admin: 04/21/23 08:42 Dose: 81 mg Documented By: ARIEL Atorvastatin Calcium (Atorvastatin Calcium 40 Mg Tablet) 40 mg PO BEDTIME [facility] Last Admin: 04/20/23 21:08 Dose: 40 mg Documented By: SORAYA Docusate Sodium (Docusate Sodium 100 Mg Capsule) 100 mg PO DAILY PRN PRN Reason: Constipation Fluticasone/Vilanterol (Fluticasone/Vilanterol 200/25 Blst.W.Dev) 1 puff INHALE RDAILY [facility] Folic Acid (Folic Acid 1 Mg Tablet) 1 mg PO DAILY [facility] Last Admin: 04/21/23 08:43 Dose: 1 mg Documented By: ARIEL Furosemide (Furosemide 20 Mg Tablet) 20 mg PO DAILY [facility]; Protocol Last Admin: 04/21/23 08:43 Dose: 20 mg Documented By: ARIEL Metoprolol Tartrate (Metoprolol Tartrate 50 Mg Tablet) 50 mg PO BID [facility]; Protocol Last Admin: 04/21/23 08:43 Dose: 50 mg Documented By: ARIEL Nitroglycerin (Nitroglycerin 0.4 Mg Tab.Subl) 0.4 mg SUBLINGUAL Q5M PRN PRN Reason: Chest Pain Omeprazole (Omeprazole 40 Mg Capsule.) 40 mg PO DAILY@0630 [facility] Last Admin: 04/21/23 06:06 Dose: 40 mg Documented By: SORAYA Ondansetron HCl (Ondansetron Hcl 4 Mg/2 Ml Vial) 4 mg IVPUSH Q8H PRN PRN Reason: Nausea and Vomiting Pharmacy Consult (Consult Rx Perform Med Rec) 1 each MISCELLANE ONCE PRN PRN Reason: Consult order Prednisone (Prednisone 2.5 Mg Tablet) 7.5 mg PO DAILY [facility] Last Admin: 04/21/23 08:43 Dose: 7.5 mg Documented By: ARIEL Sodium Chloride (0.9 % Sodium Chloride Flush 3 Ml Syringe) 3 ml IVFLUSH QSHIFT [facility] Last Admin: 04/21/23 08:42 Dose: 3 ml Documented By: ARIEL Timolol Maleate (Timolol Maleate 0.5 % Oph [place] 5 Ml Drbtl) 1 drop EYE-BOTH DAILY [facility] Last Admin: 04/21/23 09:27 Dose: Not Given Documented By: ARIEL Non-Admin Reason: Med Not Available Tiotropium [place] (Tiotropium [place] 18 Mcg Cap.W.Dev) 1 puff INHALE RDAILY [facility] Last Admin: 04/21/23 08:12 Dose: 1 puff Documented By: RELL Tramadol HCl (Tramadol Hcl 50 Mg Tablet) 50 mg PO BID PRN PRN Reason: Pain, Moderate Last Admin: 04/20/23 21:55 Dose: 50 mg Documented By: SORAYA Vitamin D (Cholecalciferol (Vitamin D3) 25 Mcg Tablet) 25 mcg PO DAILY [facility] Last Admin: 04/21/23 08:43 Dose: 25 mcg Documented By: ARIEL Warfarin Sodium (Warfarin Sodium 2.5 Mg Tablet) 2.5 mg PO SuTuWeThSa@1800 [facility] Last Admin: 04/20/23 17:18 Dose: 2.5 mg Documented By: MICHELE Warfarin Sodium (Warfarin Sodium 5 Mg Tablet) 5 mg PO MoFr@1800 [facility] Labs 04/19/23 05:42 04/21/23 05:27 Labs: Laboratory Results - last 24 hr 04/20/23 04/21/23 04/21/23 15:45 05:27 05:27 PT 30.7 H 27.8 H INR 2.6 H 2.3 H Anion Gap 16 Estim Creat Clear Calc 52.7 Estimated GFR 49 Random Glucose 90 Calcium 9.3 Magnesium 1.4 L* Microbiology Microbiology Results: Microbiology 04/18/23 13:15 Blood Culture - Preliminary Blood - Venous No growth after 48 hours. 04/18/23 13:15 Blood Culture - Preliminary Blood - Venous No growth after 48 hours. Assessment and Plan (1) Acute on chronic right heart failure: Status: Acute (2) Acute and chronic respiratory failure with hypoxia: Status: Acute (3) Acute kidney injury: Status: Acute Plan 77 year old female with asthma/copd overlap, ILD, chronic hypoxemic respiratory failure, paroxysmal atrial fibrillation anticoagulated on coumadin, htn, RA on methotrexate, and glaucoma admitted for acute on chronic hypoxemic respiratory failure and acute CHF exacerbation. #Acute on chronic hypoxemic respiratory failure due to acute on chronic right ventricular failure due to intrinsic lung disease/ pulmonary hypertension, echo showed normal EF and diastolic function normal right systolic function, moderate pulm HTN on 2L supplemental O2 at baseline due to chronic lung disease, remains hypoxic on 4-5 L of oxygen, will gradually wean oxygen oxygen goal 90-92% as able. dropped to around 80 with ambulation despite oxygen CXR showed no acute disease, BNP 894 improved to 708,give IV Lasix 40 mg 1 more day today follow BMP and adjust dose with possible discharge on Lasix 20 mg daily follow BMP, BNP Recommend to follow up with primary briquetter operator Dr. Vladislav Conner. #Acute kidney injury improving likely cardiorenal hold losartan and hydrochlorothiazide nephrology following #Acute hypomagnesemia IV mag follow level #Paroxysmal atrial fibrillation- rate controlled -INR supratherapeutic on admission ,today 2.6,will resume coumadin follow PT/inr. -continue metoprolol for rate control # chronic persistent asthma/ COPD overlap/ interstitial lung disease - continue home inhalers breo and albuterol p.r.n.,added scheduled DuoNeb updraft that is helping patient, will arrange for home updraft if qualifies - continue home prednisone 7.5 mg daily #HTN - reasonably controlled.? Hold losartan, hydrochlorothiazide in setting of NACHO - continue amlodipine and metoprolol 50 b.i.d. #rheumatoid arthritis -continue prednisone, Hold methotrxate and humira. DVT prophyloaxis- coumadin full code attending - dr. parada Pt requires continued inpt. stay for management of acute chf exacerbation wtih acute on chronic hypoxemic respiratory failure requiring increased supplemental O2 from baseline as well as expert consultation. Time Spent With Patient Time: Total time managing care of this patient today ____ minutes. Quality Stroke Does the patient have a stroke diagnosis?: No VTE Prior VTE?: No VTE Risk Level:: Medical - moderate - high VTE Device Contraindication: N/A - Device Ordered VTE Drug Contraindication: Treatment Not Indicated
[2023-04-21] MEDS: Warfarin Sodium 2.5 MG TABLET PO (18:04)
[2023-04-21] MEDS: Atorvastatin Calcium 40 MG TABLET PO (19:53)
[2023-04-22] VITALS (11 sets, daily range): BP systolic 136–165; BP diastolic 66–79; PULSE 78–92; RESP 17–18; TEMP 36.2–36.4; O2SAT 84–93
[2023-04-22] MEDS: Omeprazole 40 MG CAPSULE.DR PO (05:59)
[2023-04-22 07:18] LABS: INTERNATIONAL NORM RATIO 2.1 (0.9-1.1); Prothrombin Time 25.3 SEC (10.0-13.1)
[2023-04-22 07:25] LABS: Anion Gap 15 (12-20); Blood Urea Nitrogen 27 mg/dL (9-16); Calcium 9.4 mg/dL (8.4-10.2); Carbon Dioxide 27 mmol/L (22-29); Chloride 101 mmol/L (96-108); Estimated Glomerular Filt Rate 59; Glucose Random 98 mg/dL (60-115); Magnesium 1.6 mg/dL (1.6-2.6); Potassium 3.8 mmol/L (3.3-5.1); Sodium 139 mmol/L (135-145)
[2023-04-22] MEDS: 0.9 % Sodium Chloride Flush 3 ML SYRINGE IVFLUSH ×2 (08:13→16:07)
[2023-04-22] MEDS: amLODIPine Besylate 5 MG TABLET PO (08:13)
[2023-04-22] MEDS: Metoprolol Tartrate 50 MG TABLET PO ×2 (08:13→19:37)
[2023-04-22] MEDS: predniSONE 2.5 MG TABLET 7.5 MG PO (08:13)
[2023-04-22] MEDS: Furosemide 20 MG TABLET PO (08:13)
[2023-04-22] MEDS: Aspirin Enteric Coated 81 MG TABLET.DR PO (08:13)
[2023-04-22] MEDS: Folic Acid 1 MG TABLET PO (08:13)
[2023-04-22] MEDS: Cholecalciferol (Vitamin D3) 25 MCG TABLET PO (08:13)
[2023-04-22] MEDS: Albuterol/Iprat 2.5/0.5MG 3 ML AMPUL.NEB INHALE ×4 (08:28→19:06)
--- NOTE | 2023-04-22 10:23 | P.DS_ITS ---
DS: Providers Provider Date of Service: 04/22/23 Date of admission: 04/18/23 13:06 Date of discharge: 04/22/23 Primary care physician: Moris Machado III, MD Consults: 04/18/23 13:06 Consult to Cardiology Routine Consulting Provider: [facility] Reason for consultation: new dx chf 04/20/23 14:11 Consult to Nephrology Routine Consulting Provider: Titi [place] Reason for consultation: nacho Has provider been notified: No Attending physician on discharge: Husam Abdalla Discharging clinician: Danelle Hardin DS: Diagnosis Discharge Diagnosis (1) Acute on chronic right heart failure: Status: Acute (2) Acute and chronic respiratory failure with hypoxia: Status: Acute (3) Acute kidney injury: Status: Acute DS: Summary Hospital Course Hospital Course: From h&P on day of admission 77 year old female with asthma/copd overlap, ILD, chronic hypoxemic respiratory failure, paroxysmal atrial fibrillation anticoagulated on coumadin, htn, RA on methotrexate who is a former smoker (quit 23 years ago) presented to the ED with his and son for evaluation of shortness of breath ongoing for 1.5 weeks. He reports WEBER and PND, but denies orthopnea, wheezing, lightheadedness, palpitations, or chest pain. He reports longstanding BLE edema which he has attributed to chronic prednisone use, but states has increased in last week. He reports oximetry to 87% at home, requiring increase in supplemental O2. No fevers, chills, sick contacts. No significant increase in albuterol usage. Follows with pulmonology at [facility] and [facility] cardiology. Per EMS, pt oximetry in 70's on arrival, placed on increased supplemental O2, given 125mg solumedrol and a duoneb. On arrival, patient oximetry 87% on RA placed on oxymask at 8L and then transitioned abck to NC at 7L maintaining oximetry 90%. He was tachypneic to 26, vitals otherwise normal. normocytic anemia with H/ H 12.2/39.1%.? PTT 55.9, INR 4.6, PTT? 47.6.? Creatinine 1.70, BUN 25, sodium? 133, electrolytes otherwise normal except for mild hypo magnesiumia of 1.3.? BNP 894.? CXR with increased interstitial markings at the lung bases and bilateral linear scarring or chronic subsegmental atelectasis in the lingula.? Viral respiratory panel pending.? EKG with NSR, rate 70 with T- wave inversions in leads III and V1, no ST or depressions. Acute on chronic hypoxemic respiratory failure. due to acute on chronic right ventricular failure due to intrinsic lung disease/ pulmonary hypertension, echo showed normal EF and diastolic function normal right systolic function, moderate pulm HTN. ?CXR showed no acute disease, BNP 894 improved to 708 with IV lasix. leg edema and respiratory symptoms improved, will discharge on Lasix 20 mg daily. Recommend to follow up with primary helmet hat brim cutter Dr. Vladislav Conner. patient on 2L supplemental O2 at baseline due to chronic lung disease, remains hypoxic on 4-5 L of oxygen.re Acute kidney injury. improving. likely cardiorenal. losartan and hydrochlorothiazide were placed on hold. seen by nephrology. Acute hypomagnesemia. improved with replacement. Paroxysmal atrial fibrillation- rate controlled. INR supratherapeutic on admission, resumed as INR improved to therapeutic narinder. will resume coumadin follow PT/inr. continued metoprolol for rate control. resume outpatient INR monitoring. chronic persistent asthma/ COPD overlap/ interstitial lung disease. continue home inhalers breo and albuterol p.r.n.,added scheduled DuoNeb updraft. continue home prednisone 7.5 mg daily HTN. reasonably controlled.? Hold losartan, hydrochlorothiazide in setting of NACHO. continue amlodipine and metoprolol 50 b.i.d. Time Spent with Patient Time attestation: Total time managing care of this patient today ____ minutes. Discharge coordination time: Greater than 30 minutes Quality: Safe Use of Opioids Does Pt have an Active Cancer Diagnosis on the Problem List?: No Quality: Stroke Does the patient have a stroke diagnosis?: No Physical Exam Vital Signs: Vital Signs: Last Vital Signs Temp 97.2 F 04/22/23 07:41 Pulse 92 04/22/23 08:35 Resp 18 04/22/23 08:35 BP 136/70 04/22/23 10:03 Pulse Ox 93 04/22/23 07:41 O2 Del Method Nasal Cannula 04/22/23 07:41 O2 Flow Rate 4 04/22/23 07:41 FiO2 72 04/20/23 08:39 Oxygen Flow Rate 13 04/18/23 10:38 BMI result Body Mass Index 30.7 Const: General: cooperative, comfortable, no acute distress, alert and awake Nutritional Appearance: average body habitus Orientation/consciousness: patient oriented x3 Resp: Other: diminished breath sounds Effort & Inspection: normal respiratory effort, able to speak in complete se ntences, no respiratory distress and no use of accessory muscles GI: Inspection: No distended Palpation (GI): Soft to palpation and nontender Neuro: General: patient oriented x3, moves all extremities and CN's II-XI intact bilaterally Extrem: General: Yes no pedal edema DS: Data Data Completed and Pending Labs on day of discharge: Laboratory Results - last 24 hr 04/22/23 04/22/23 05:55 05:55 PT 25.3 H INR 2.1 H Sodium 139 Potassium 3.8 Chloride 101 Carbon Dioxide 27 Anion Gap 15 BUN 27 H Creatinine 1.20 Estim Creat Clear Calc 61.0 Estimated GFR 59 Random Glucose 98 Calcium 9.4 Magnesium 1.6 Preliminary micro results at discharge 04/18/23 13:15 Blood Culture - Preliminary Blood - Venous No growth after 48 hours. 04/18/23 13:15 Blood Culture - Preliminary Blood - Venous No growth after 48 hours. Discharge Plan Discharge Patient Disposition: Home, Self-Care Discharge Diagnosis: acute on chronic right side heart failure acute on chronic respiratory failure with hypoxia hypo magnesemia NACHO Referrals: Moris Machado III, MD [Primary Care Provider] - 1 Week Discharge Medications: New furosemide 20 mg Tablet 20 mg PO DAILY 30 Days Qty: 30 0RF Protocol: Hold for SBP< HOLD for SBP < : 90 Continued amlodipine 5 mg tablet 1 tab PO DAILY folic acid 400 mcg tablet 800 mcg PO DAILY tramadol 50 mg tablet 1 tab PO BID PRN (Reason: Pain, Moderate) methotrexate sodium 2.5 mg tablet 5 tab PO WE Rx Instructions: tuesday warfarin 5 mg tablet 5 mg PO MOFR metoprolol tartrate 50 mg tablet 1 tab PO BID omeprazole 20 mg capsule,delayed release(DR/EC) 40 mg PO DAILY timolol maleate 0.5 % drops 1 drp ophthalmic (eye) DAILY rosuvastatin 10 mg tablet 1 tab PO BEDTIME Humira(CF) Pen 40 mg/0.4 mL pen injector kit 40 mg subcut Q2W Rx Instructions: Fridays aspirin 81 mg Tablet,Delayed Release (Dr/Ec) 81 mg PO DAILY prednisone 2.5 mg tablet 7.5 mg PO DAILY warfarin 5 mg tablet 2.5 mg PO SUTUWETHSA nitroglycerin 0.4 mg tablet, sublingual 0.4 mg sublingual NEEDED PRN (Reason: Chest Pain) albuterol sulfate 90 mcg/actuation HFA aerosol inhaler 2 puff inhalation Q4-6H PRN (Reason: Shortness Of Breath Or Wheezing) cholecalciferol (vitamin D3) [Vitamin D3] 25 mcg (1,000 unit) Capsule 25 mcg PO DAILY fluticasone furoate-vilanterol [Breo Ellipta] 200-25 mcg/dose blister with device 1 puff inhalation DAILY Discontinued hydrochlorothiazide 25 mg tablet 1 tab PO DAILY losartan 100 mg tablet 1 tab PO DAILY Diet: Low salt diet Activity on Discharge: As tolerated Stand Alone Forms: Patient Portal Discharge page Care Plan Goals: see below Health Concerns: acute on chronic respiratory failure acute on chronic heart failure low magnesium levels NACHO Plan of Treatment: stop taking losartan and hydrochlorothiazide Assessment: see discharge summary
[2023-04-22] MEDS: methylPREDNISolone Sod Succ 40 MG/ML VIAL IVPUSH ×2 (11:47→23:29)
--- NOTE | 2023-04-22 12:22 | HO.PM.IMPN ---
Subjective Subjective Date of Service: 04/22/23 Interval History: seen and examined this morning follow up for sob, chf, copd denies sob, cough, chest pain eager to go home o2 dropped with PT, pt became dyspnic Review of Systems Review of Systems: Yes all other systems are reviewed and are negative Constitutional Constitutional: Denies chills and Denies fever(s) ENT Ears, Nose, Mouth, and Throat: Denies dizziness Cardiovascular Cardiovascular: Denies chest pain, Denies palpitations and Reports dyspnea on exertion Respiratory Respiratory: Denies cough and Reports dyspnea on exertion Gastrointestinal Gastrointestinal: Denies abdominal pain Neurologic Neurologic: Denies dizziness Endocrine Endocrine: Denies palpitations Physical Exam Vital Signs: Vital Signs: Last Vital Signs Temp 97.2 F 04/22/23 07:41 Pulse 91 04/22/23 11:30 Resp 18 04/22/23 11:30 BP 136/70 04/22/23 10:47 Pulse Ox 93 04/22/23 07:41 O2 Del Method Nasal Cannula 04/22/23 07:41 O2 Flow Rate 4 04/22/23 07:41 FiO2 72 04/20/23 08:39 Oxygen Flow Rate 13 04/18/23 10:38 BMI result Body Mass Index 30.7 Const: General: cooperative, comfortable, no acute distress, alert and awake Nutritional Appearance: average body habitus Orientation/consciousness: patient oriented x3 Resp: Other: diminished breath sounds; expiratory wheezing Effort & Inspection: normal respiratory effort, able to speak in complete sentences, no respiratory distress and no use of accessory muscles GI: Inspection: No distended Palpation (GI): Soft to palpation and nontender Neuro: General: patient oriented x3, moves all extremities and CN's II-XI intact bilaterally Extrem: General: Yes no pedal edema Objective Data Active Medications Acetaminophen (Acetaminophen 325 Mg Tablet) 650 mg PO Q6H PRN PRN Reason: Pain, Mild (Pain Scale 1-3) Albuterol Sulfate (Albuterol Sulfate 90 Mcg 8 Gm Inhaler) 2 puff INHALE Q4H PRN PRN Reason: Shortness Of Breath Or Wheezing Last Admin: 04/19/23 11:39 Dose: 2 puff Documented By: MORA Albuterol/Ipratropium (Albuterol/Iprat 2.5/0.5mg 3 Ml Ampul.Neb) 3 ml INHALE RQID JEN Last Admin: 04/22/23 11:28 Dose: 3 ml Documented By: DEMI Amlodipine Besylate (Amlodipine Besylate 5 Mg Tablet) 5 mg PO DAILY [facility] [place]; Protocol Last Admin: 04/22/23 08:13 Dose: 5 mg Documented By: ZACK Aspirin (Aspirin Enteric Coated 81 Mg Tablet.) 81 mg PO DAILY [facility] [place] Last Admin: 04/22/23 08:13 Dose: 81 mg Documented By: ZACK Atorvastatin Calcium (Atorvastatin Calcium 40 Mg Tablet) 40 mg PO BEDTIME [facility] [place] Last Admin: 04/21/23 19:53 Dose: 40 mg Documented By: YAJAIRA Docusate Sodium (Docusate Sodium 100 Mg Capsule) 100 mg PO DAILY PRN PRN Reason: Constipation Fluticasone/Vilanterol (Fluticasone/Vilanterol 200/25 Blst.W.Dev) 1 puff INHALE RDAILY [facility] [place] Last Admin: 04/22/23 08:32 Dose: Not Given Documented By: DEMI Non-Admin Reason: See Note Folic Acid (Folic Acid 1 Mg Tablet) 1 mg PO DAILY [facility] [place] Last Admin: 04/22/23 08:13 Dose: 1 mg Documented By: ZACK Furosemide (Furosemide 20 Mg Tablet) 20 mg PO DAILY [facility] [place]; Protocol Last Admin: 04/22/23 08:13 Dose: 20 mg Documented By: ZACK Methylprednisolone Sodium Succinate (Methylprednisolone Sod Succ 40 Mg/Ml Vial) 40 mg IVPUSH Q12H [facility] [place] Last Admin: 04/22/23 11:47 Dose: 40 mg Documented By: ZACK Metoprolol Tartrate (Metoprolol Tartrate 50 Mg Tablet) 50 mg PO BID [facility] [place]; Protocol Last Admin: 04/22/23 08:13 Dose: 50 mg Documented By: ZACK Nitroglycerin (Nitroglycerin 0.4 Mg Tab.Subl) 0.4 mg SUBLINGUAL Q5M PRN PRN Reason: Chest Pain Omeprazole (Omeprazole 40 Mg Capsule.) 40 mg PO DAILY@0630 [facility] [place] Last Admin: 04/22/23 05:59 Dose: 40 mg Documented By: YAJAIRA Ondansetron HCl (Ondansetron Hcl 4 Mg/2 Ml Vial) 4 mg IVPUSH Q8H PRN PRN Reason: Nausea and Vomiting Pharmacy Consult (Consult Rx Perform Med Rec) 1 each MISCELLANE ONCE PRN PRN Reason: Consult order Sodium Chloride (0.9 % Sodium Chloride Flush 3 Ml Syringe) 3 ml IVFLUSH QSHIFT [facility] [place] Last Admin: 04/22/23 08:13 Dose: 3 ml Documented By: ZACK Timolol Maleate (Timolol Maleate 0.5 % Oph [place] 5 Ml Drbtl) 1 drop EYE-BOTH DAILY [facility] [place] Last Admin: 04/22/23 10:12 Dose: Not Given Documented By: ZACK Non-Admin Reason: Patient Refused Tiotropium [place] (Tiotropium [place] 18 Mcg Cap.W.Dev) 1 puff INHALE RDAILY [facility] [place] Last Admin: 04/22/23 08:33 Dose: Not Given Documented By: DEMI Non-Admin Reason: Med Not Available Tramadol HCl (Tramadol Hcl 50 Mg Tablet) 50 mg PO BID PRN PRN Reason: Pain, Moderate Last Admin: 04/20/23 21:55 Dose: 50 mg Documented By: SORAYA Vitamin D (Cholecalciferol (Vitamin D3) 25 Mcg Tablet) 25 mcg PO DAILY [facility] [place] Last Admin: 04/22/23 08:13 Dose: 25 mcg Documented By: ZACK Warfarin Sodium (Warfarin Sodium 2.5 Mg Tablet) 2.5 mg PO SuTuWeThSa@1800 [facility] [place] Last Admin: 04/21/23 18:04 Dose: 2.5 mg Documented By: ARIEL Warfarin Sodium (Warfarin Sodium 5 Mg Tablet) 5 mg PO MoFr@1800 [facility] [place] Labs 04/19/23 05:42 04/22/23 05:55 Labs: Laboratory Results - last 24 hr 04/22/23 04/22/23 05:55 05:55 PT 25.3 H INR 2.1 H Anion Gap 15 Estim Creat Clear Calc 61.0 Estimated GFR 59 Random Glucose 98 Calcium 9.4 Magnesium 1.6 Assessment and Plan (1) (HFpEF) heart failure with preserved ejection fraction: Status: Acute (2) COPD exacerbation: Status: Acute Plan 77 year old female with asthma/copd overlap, ILD, chronic hypoxemic respiratory failure, paroxysmal atrial fibrillation anticoagulated on coumadin, htn, RA on methotrexate, and glaucoma admitted for acute on chronic hypoxemic respiratory failure and acute CHF exacerbation. #Acute on chronic hypoxemic respiratory failure due to acute on chronic right ventricular failure due to intrinsic lung disease/ pulmonary hypertension, echo showed normal EF and diastolic function normal right systolic function, moderate pulm HTN on 2L supplemental O2 at baseline due to chronic lung disease, remains hypoxic on 4-5 L of oxygen, will gradually wean oxygen oxygen goal 90-92% as able. dropped to around 80 with ambulation despite oxygen home o2 eval - 4L at rest and 6L with activity but was only with marching no ambulation - has 12 steps at home to get to bedroom and bathroom CXR showed no acute disease, BNP 894 improved to 708, appears euvolemic, changed to Lasix 20 mg daily Recommend to follow up with primary gerentological physiotherapist Dr. Vladislav Conner as outpatient #Acute kidney injury resolve likely cardiorenal hold losartan and hydrochlorothiazide nephrology following #acute copd exacerbation, chronic persistent asthma/ COPD overlap/ interstitial lung disease RPP negative -continue home inhalers breo and albuterol p.r.n.,added scheduled DuoNeb updraft that is helping patient, will arrange for home updraft -still wheezing and hypoxic with ambulation, will start solu-medrol #Acute hypomagnesemia improved with replacement #Paroxysmal atrial fibrillation- rate controlled -INR supratherapeutic on admission, INR down, coumadin resumed. follow INR -continue metoprolol for rate control #HTN - reasonably controlled.? - losartan on hold for NACHO initially - continue amlodipine and metoprolol 50 b.i.d. - started on lasix for CHF, d/c HCTZ on discharge #rheumatoid arthritis -continue prednisone, Hold methotrxate and humira. DVT prophyloaxis- coumadin full code attending - dr. parada dispo - PT rec inpt pulm rehab, pt declines; pt has 12 steps at home for bedroom and bathroom, discussed with family moving bed to main floor and bedside commode as possible option Pt requires continued inpt. stay for management of acute on chronic hypoxemic respiratory failure requiring increased supplemental O2 and IV steroids Time Spent With Patient Time: Total time managing care of this patient today ____ minutes. Quality Stroke Does the patient have a stroke diagnosis?: No VTE Prior VTE?: No VTE Risk Level:: Medical - moderate - high VTE Device Contraindication: N/A - Device Ordered VTE Drug Contraindication: Treatment Not Indicated
--- NOTE | 2023-04-22 15:14 | PM.PNNEP ---
Subjective Subjective Date of Service: 04/22/23 Interval history: Seen and examined, events noted Physical Exam Vital Signs: Vital Signs: Last Vital Signs Temp 97.2 F 04/22/23 07:41 Pulse 91 04/22/23 15:05 Resp 18 04/22/23 15:05 BP 136/70 04/22/23 10:47 Pulse Ox 93 04/22/23 07:41 O2 Del Method Nasal Cannula 04/22/23 07:41 O2 Flow Rate 4 04/22/23 07:41 FiO2 72 04/20/23 08:39 Oxygen Flow Rate 13 04/18/23 10:38 BMI result Body Mass Index 30.7 Const: General: no acute distress, alert and awake HEENT: Head: Yes normocephalic and Yes atraumatic Neck: Neck: Yes supple Resp: Auscultation: wheezes Cardio: Heart sounds: S1 normal heart sound present and S2 normal heart sound present GI: Palpation (GI): Soft to palpation and nontender Extrem: Right upper extremity: edema Objective Data Labs 04/19/23 05:42 04/22/23 05:55 Labs: Laboratory Results - last 24 hr 04/22/23 04/22/23 05:55 05:55 PT 25.3 H INR 2.1 H Sodium 139 Potassium 3.8 Chloride 101 Carbon Dioxide 27 Anion Gap 15 BUN 27 H Creatinine 1.20 Estim Creat Clear Calc 61.0 Estimated GFR 59 Random Glucose 98 Calcium 9.4 Magnesium 1.6 Microbiology Microbiology Results: Microbiology 04/18/23 13:15 Blood - Venous Blood Culture - Preliminary No growth after 48 hours. 04/18/23 13:15 Blood - Venous Blood Culture - Preliminary No growth after 48 hours. Procedures Date of Service Date of Service: 04/22/23 Assessment & Plan Assessment and plan (1) Acute kidney injury: Status: Acute (2) (HFpEF) heart failure with preserved ejection fraction: Status: Acute Plan NACHO: c/w CRS and with diuresis improved SCr to BSL h/o diastolic dysfunction baseline Scr ~ 1.2 mg/dl REC: cont diuresis and GDMT Time Spent With Patient Time: Total time managing care of this patient today ____ minutes. Progress Note: Quality Stroke Does the patient have a stroke diagnosis?: No
[2023-04-22] MEDS: Warfarin Sodium 5 MG TABLET PO (18:00)
[2023-04-22] MEDS: Atorvastatin Calcium 40 MG TABLET PO (19:37)
[2023-04-23] VITALS (9 sets, daily range): BP systolic 143–151; BP diastolic 65–75; PULSE 75–85; RESP 17–20; TEMP 36.2–36.6; O2SAT 90–92; BMI 26.3
[2023-04-23] MEDS: Omeprazole 40 MG CAPSULE.DR PO (05:21)
[2023-04-23 06:28] LABS: INTERNATIONAL NORM RATIO 1.8 (0.9-1.1)
[2023-04-23] MEDS: Albuterol/Iprat 2.5/0.5MG 3 ML AMPUL.NEB INHALE ×2 (07:36→11:51)
[2023-04-23] MEDS: Fluticasone/Vilanterol 200/25 BLST.W.DEV 1 PUFF INHALE (07:37)
[2023-04-23] MEDS: Cholecalciferol (Vitamin D3) 25 MCG TABLET PO (08:52)
[2023-04-23] MEDS: amLODIPine Besylate 5 MG TABLET PO (08:52)
[2023-04-23] MEDS: Aspirin Enteric Coated 81 MG TABLET.DR PO (08:52)
[2023-04-23] MEDS: Metoprolol Tartrate 50 MG TABLET PO ×2 (08:52→20:17)
[2023-04-23] MEDS: Folic Acid 1 MG TABLET PO (08:52)
[2023-04-23] MEDS: Furosemide 20 MG TABLET PO (08:52)
[2023-04-23] MEDS: 0.9 % Sodium Chloride Flush 3 ML SYRINGE IVFLUSH ×2 (08:53→16:40)
[2023-04-23] MEDS: methylPREDNISolone Sod Succ 40 MG/ML VIAL IVPUSH ×3 (11:21→20:17)
--- NOTE | 2023-04-23 11:32 | PC.NURSE ---
4L at rest 92% Ambulated 4L sat at 84% Ambulated 6L sat at 90%
--- NOTE | 2023-04-23 12:10 | P.PNIM_ITS ---
Subjective Subjective Date of Service: 04/23/23 Interval History: seen and examined this morning follow up for sob, chf, copd denies sob, cough, chest pain o2 dropped with ambulation even on 4-6L Review of Systems Review of Systems: Yes all other systems are reviewed and are negative Constitutional Constitutional: Denies chills and Denies fever(s) ENT Ears, Nose, Mouth, and Throat: Denies dizziness Cardiovascular Cardiovascular: Denies chest pain, Denies palpitations and Reports dyspnea on exertion Respiratory Respiratory: Denies cough and Reports dyspnea on exertion Gastrointestinal Gastrointestinal: Denies abdominal pain Neurologic Neurologic: Denies dizziness Endocrine Endocrine: Denies palpitations Physical Exam Vital Signs: Vital Signs: Last Vital Signs Temp 97.6 F 04/23/23 07:23 Pulse 81 04/23/23 11:51 Resp 20 04/23/23 11:51 BP 151/75 H 04/23/23 07:23 Pulse Ox 90 L 04/23/23 09:30 O2 Del Method Nasal Cannula 04/23/23 07:23 O2 Flow Rate 4 04/23/23 07:23 FiO2 72 04/20/23 08:39 Oxygen Flow Rate 13 04/18/23 10:38 BMI result Body Mass Index 26.3 Appearing in no acute distress lung sounds dim heart regular rate rhythm, clear S1, S2 positive bowel sounds, abdomen is soft, nontender neuro patient is alert x3, no focal deficits Objective Data Active Medications Acetaminophen (Acetaminophen 325 Mg Tablet) 650 mg PO Q6H PRN PRN Reason: Pain, Mild (Pain Scale 1-3) Albuterol Sulfate (Albuterol Sulfate 90 Mcg 8 Gm Inhaler) 2 puff INHALE Q4H PRN PRN Reason: Shortness Of Breath Or Wheezing Last Admin: 04/19/23 11:39 Dose: 2 puff Documented By: MORA Albuterol Sulfate (Albuterol Sulfate (0.083%) 2.5 Mg/3 Ml Vial.Neb) 2.5 mg INHALE RQ4H WHILE AWAKE [facility] Amlodipine Besylate (Amlodipine Besylate 5 Mg Tablet) 5 mg PO DAILY [facility]; Protocol Last Admin: 04/23/23 08:52 Dose: 5 mg Documented By: ARIEL Aspirin (Aspirin Enteric Coated 81 Mg Tablet.) 81 mg PO DAILY [facility] Last Admin: 04/23/23 08:52 Dose: 81 mg Documented By: ARIEL Atorvastatin Calcium (Atorvastatin Calcium 40 Mg Tablet) 40 mg PO BEDTIME [facility] Last Admin: 04/22/23 19:37 Dose: 40 mg Documented By: YASMINE Docusate Sodium (Docusate Sodium 100 Mg Capsule) 100 mg PO DAILY PRN PRN Reason: Constipation Fluticasone/Vilanterol (Fluticasone/Vilanterol 200/25 Blst.W.Dev) 1 puff INHALE RDAILY [facility] Last Admin: 04/23/23 07:37 Dose: 1 puff Documented By: MORA Folic Acid (Folic Acid 1 Mg Tablet) 1 mg PO DAILY [facility] Last Admin: 04/23/23 08:52 Dose: 1 mg Documented By: ARIEL Furosemide (Furosemide 20 Mg Tablet) 20 mg PO DAILY [facility]; Protocol Last Admin: 04/23/23 08:52 Dose: 20 mg Documented By: ARIEL Methylprednisolone Sodium Succinate (Methylprednisolone Sod Succ 40 Mg/Ml Vial) 40 mg IVPUSH Q8H [facility] Metoprolol Tartrate (Metoprolol Tartrate 50 Mg Tablet) 50 mg PO BID [facility]; Protocol Last Admin: 04/23/23 08:52 Dose: 50 mg Documented By: ARIEL Nitroglycerin (Nitroglycerin 0.4 Mg Tab.Subl) 0.4 mg SUBLINGUAL Q5M PRN PRN Reason: Chest Pain Omeprazole (Omeprazole 40 Mg Capsule.Dr) 40 mg PO DAILY@0630 [facility] Last Admin: 04/23/23 05:21 Dose: 40 mg Documented By: YASMINE Ondansetron HCl (Ondansetron Hcl 4 Mg/2 Ml Vial) 4 mg IVPUSH Q8H PRN PRN Reason: Nausea and Vomiting Pharmacy Consult (Consult Rx Perform Med Rec) 1 each MISCELLANE ONCE PRN PRN Reason: Consult order Sodium Chloride (0.9 % Sodium Chloride Flush 3 Ml Syringe) 3 ml IVFLUSH QSHIFT [facility] Last Admin: 04/23/23 08:53 Dose: 3 ml Documented By: ARIEL Timolol Maleate (Timolol Maleate 0.5 % Oph [place] 5 Ml Drbtl) 1 drop EYE-BOTH DAILY [facility] Last Admin: 04/23/23 08:58 Dose: Not Given Documented By: ARIEL Non-Admin Reason: Patient Refused Tiotropium [place] (Tiotropium [place] 18 Mcg Cap.W.Dev) 1 puff INHALE RDAILY [facility] Last Admin: 04/23/23 07:36 Dose: 1 puff Documented By: MORA Tramadol HCl (Tramadol Hcl 50 Mg Tablet) 50 mg PO BID PRN PRN Reason: Pain, Moderate Last Admin: 04/20/23 21:55 Dose: 50 mg Documented By: SORAYA Vitamin D (Cholecalciferol (Vitamin D3) 25 Mcg Tablet) 25 mcg PO DAILY [facility] Last Admin: 04/23/23 08:52 Dose: 25 mcg Documented By: ARIEL Warfarin Sodium (Warfarin Sodium 2.5 Mg Tablet) 2.5 mg PO SuTuWeThSa@1800 [facility] Last Admin: 04/21/23 18:04 Dose: 2.5 mg Documented By: ARIEL Warfarin Sodium (Warfarin Sodium 5 Mg Tablet) 5 mg PO MoFr@1800 [facility] Last Admin: 04/22/23 18:00 Dose: 5 mg Documented By: ZACK Labs 04/19/23 05:42 04/22/23 05:55 Labs: Laboratory Results - last 24 hr 04/23/23 05:40 PT 21.0 H INR 1.8 H Assessment and Plan (1) (HFpEF) heart failure with preserved ejection fraction: Status: Acute (2) COPD exacerbation: Status: Acute Plan 77 year old female with asthma/copd overlap, ILD, chronic hypoxemic respiratory failure, paroxysmal atrial fibrillation anticoagulated on coumadin, htn, RA on methotrexate, and glaucoma admitted for acute on chronic hypoxemic respiratory failure and acute CHF exacerbation. Acute copd exacerbation, chronic persistent asthma/ COPD overlap/ interstitial lung disease RPP negative continue home inhalers breo albuterol p.r.n.,added scheduled DuoNeb updraft solumedrtol IV Q8H repeat CXR Acute on chronic hypoxemic respiratory failure due to acute on chronic right ventricular failure due to intrinsic lung disease/ pulmonary hypertension, echo showed normal EF and diastolic function normal right systolic function, moderate pulm HTN CXR showed no acute disease, BNP 894 improved to 708, appears euvolemic, changed to Lasix 20 mg daily Recommend to follow up with primary associate scientist Dr. Vladislav Conner as outpatient Acute kidney injury resolved likely cardiorenal hold losartan and hydrochlorothiazide nephrology following Hypognesemia improved with replacement Paroxysmal atrial fibrillation- rate controlled INR supratherapeutic on admission, INR down, coumadin resumed. follow INR continue metoprolol for rate control HTN losartan on hold for NACHO initially continue amlodipine and metoprolol 50 b.i.d. started on lasix for CHF, d/c HCTZ on discharge rheumatoid arthritis continue prednisone, Hold methotrxate and humira. DVT prophyloaxis- coumadin full code attending - dr. Cabral dispo - PT rec inpt pulm rehab, pt declines; pt has 12 steps at home for bedroom and bathroom, discussed with family moving bed to main floor and bedside commode as possible option Pt requires continued inpt. stay for management of acute on chronic hypoxemic respiratory failure requiring increased supplemental O2 and IV steroids Time Spent With Patient Time: Total time managing care of this patient today ____ minutes. Quality Stroke Does the patient have a stroke diagnosis?: No VTE Prior VTE?: No VTE Risk Level:: Medical - moderate - high VTE Device Contraindication: N/A - Device Ordered VTE Drug Contraindication: Treatment Not Indicated
[2023-04-23] MEDS: Albuterol Sulfate (0.083%) 2.5 MG/3 ML VIAL.NEB INHALE ×2 (15:52→20:12)
--- NOTE | 2023-04-23 15:53 | PM.PNNEP ---
Subjective Subjective Date of Service: 04/23/23 Interval history: Seen and examined, events noted Physical Exam Vital Signs: Vital Signs: Last Vital Signs Temp 97.1 F 04/23/23 15:19 Pulse 78 04/23/23 15:19 Resp 18 04/23/23 15:19 BP 147/65 H 04/23/23 15:19 Pulse Ox 91 L 04/23/23 15:19 O2 Del Method Nasal Cannula 04/23/23 15:19 O2 Flow Rate 4 04/23/23 15:19 FiO2 72 04/20/23 08:39 Oxygen Flow Rate 13 04/18/23 10:38 BMI result Body Mass Index 26.3 Const: General: no acute distress, alert and awake HEENT: Head: Yes normocephalic and Yes atraumatic Neck: Neck: Yes supple Resp: Auscultation: wheezes Cardio: Heart sounds: S1 normal heart sound present and S2 normal heart sound present GI: Palpation (GI): Soft to palpation and nontender Extrem: Right upper extremity: edema Objective Data Labs 04/19/23 05:42 04/22/23 05:55 Labs: Laboratory Results - last 24 hr 04/23/23 05:40 PT 21.0 H INR 1.8 H Microbiology Microbiology Results: Microbiology 04/18/23 13:15 Blood - Venous Blood Culture - Final No growth after 5 days. 04/18/23 13:15 Blood - Venous Blood Culture - Final No growth after 5 days. Procedures Date of Service Date of Service: 04/23/23 Assessment & Plan Assessment and plan (1) Acute kidney injury: Status: Acute (2) (HFpEF) heart failure with preserved ejection fraction: Status: Acute Plan NACHO: c/w CRS and with diuresis improved SCr to BSL h/o diastolic dysfunction baseline Scr ~ 1.2 mg/dl REC: no new recs, cont focus on GDMT Time Spent With Patient Time: Total time managing care of this patient today ____ minutes. Progress Note: Quality Stroke Does the patient have a stroke diagnosis?: No
[2023-04-23] MEDS: Warfarin Sodium 2.5 MG TABLET PO (17:34)
[2023-04-23] MEDS: Atorvastatin Calcium 40 MG TABLET PO (20:18)
[2023-04-24 03:52] VITALS: BP 147/69; PULSE 78; RESP 20; TEMP 36.7; O2SAT 92
[2023-04-24] MEDS: Omeprazole 40 MG CAPSULE.DR PO (04:42)
[2023-04-24] MEDS: methylPREDNISolone Sod Succ 40 MG/ML VIAL IVPUSH (04:42)
[2023-04-24 07:39] VITALS: BP 153/68; PULSE 81; RESP 18; TEMP 36.5; O2SAT 92
[2023-04-24] MEDS: Albuterol Sulfate (0.083%) 2.5 MG/3 ML VIAL.NEB INHALE (08:01)
[2023-04-24] MEDS: Fluticasone/Vilanterol 200/25 BLST.W.DEV 1 PUFF INHALE (08:04)
[2023-04-24 08:05] VITALS: PULSE 77; RESP 18; O2SAT 92
[2023-04-24] MEDS: Folic Acid 1 MG TABLET PO (08:41)
[2023-04-24] MEDS: Metoprolol Tartrate 50 MG TABLET PO (08:41)
[2023-04-24] MEDS: Cholecalciferol (Vitamin D3) 25 MCG TABLET PO (08:41)
[2023-04-24] MEDS: Furosemide 20 MG TABLET PO (08:41)
[2023-04-24] MEDS: amLODIPine Besylate 5 MG TABLET PO (08:41)
[2023-04-24] MEDS: Aspirin Enteric Coated 81 MG TABLET.DR PO (08:41)
[2023-04-24] MEDS: 0.9 % Sodium Chloride Flush 3 ML SYRINGE IVFLUSH (08:43)
--- NOTE | 2023-04-24 10:06 | PM.DS ---
DS: Providers Provider Date of Service: 04/24/23 Date of admission: 04/18/23 13:06 Primary care physician: Moris Machado III, MD Consults: 04/18/23 13:06 Consult to Cardiology Routine Consulting Provider: [facility] Cardiovascular Services Reason for consultation: new dx chf 04/20/23 14:11 Consult to Nephrology Routine Consulting Provider: Titi Chase Reason for consultation: nacho Has provider been notified: No DS: Diagnosis Discharge Diagnosis (1) Acute kidney injury: Status: Acute (2) (HFpEF) heart failure with preserved ejection fraction: Status: Acute DS: Summary Hospital Course Hospital Course: From h&P on day of admission 77 year old female with asthma/copd overlap, ILD, chronic hypoxemic respiratory failure, paroxysmal atrial fibrillation anticoagulated on coumadin, htn, RA on methotrexate who is a former smoker (quit 23 years ago) presented to the ED with his and son for evaluation of shortness of breath ongoing for 1.5 weeks. He reports WEBER and PND, but denies orthopnea, wheezing, lightheadedness, palpitations, or chest pain. He reports longstanding BLE edema which he has attributed to chronic prednisone use, but states has increased in last week. He reports oximetry to 87% at home, requiring increase in supplemental O2. No fevers, chills, sick contacts. No significant increase in albuterol usage. Follows with pulmonology at [facility] ([place]) and [facility] cardiology. Per EMS, pt oximetry in 70's on arrival, placed on increased supplemental O2, given 125mg solumedrol and a duoneb. On arrival, patient oximetry 87% on RA placed on oxymask at 8L and then transitioned abck to NC at 7L maintaining oximetry 90%. He was tachypneic to 26, vitals otherwise normal. normocytic anemia with H/ H 12.2/39.1%.? PTT 55.9, INR 4.6, PTT? 47.6.? Creatinine 1.70, BUN 25, sodium? 133, electrolytes otherwise normal except for mild hypo magnesiumia of 1.3.? BNP 894.? CXR with increased interstitial markings at the lung bases and bilateral linear scarring or chronic subsegmental atelectasis in the lingula.? Viral respiratory panel pending.? EKG with NSR, rate 70 with T-wave inversions in leads III and V1, no ST or depressions. Acute on chronic hypoxemic respiratory failure. due to acute on chronic right ventricular failure due to intrinsic lung disease/ pulmonary hypertension, echo showed normal EF and diastolic function normal right systolic function, moderate pulm HTN. ?CXR showed no acute disease, BNP 894 improved to 708 with IV lasix. leg edema and respiratory symptoms improved, will discharge on Lasix 20 mg daily. Recommend to follow up with primary environmental studies department chair Dr. Vladislav Conner. patient on 2L supplemental O2 at baseline due to chronic lung disease, remains hypoxic on 4-5 L of oxygen.re Acute kidney injury. improving. likely cardiorenal. losartan and hydrochlorothiazide were placed on hold. seen by nephrology. Acute hypomagnesemia. improved with replacement. Paroxysmal atrial fibrillation- rate controlled. INR supratherapeutic on admission, resumed as INR improved to therapeutic narinder. will resume coumadin follow PT/inr. continued metoprolol for rate control. resume outpatient INR monitoring. chronic persistent asthma/ COPD overlap/ interstitial lung disease. continue home inhalers breo and albuterol p.r.n.,added scheduled DuoNeb updraft. continue home prednisone 7.5 mg daily HTN. reasonably controlled.? Hold losartan, hydrochlorothiazide in setting of NACHO. continue amlodipine and metoprolol 50 b.i.d. Time Spent with Patient Time attestation: Total time managing care of this patient today ____ minutes. Discharge coordination time: Greater than 30 minutes Quality: Safe Use of Opioids Does Pt have an Active Cancer Diagnosis on the Problem List?: No Quality: Stroke Does the patient have a stroke diagnosis?: No Physical Exam Vital Signs: Vital Signs: Last Vital Signs Temp 97.7 F 04/24/23 07:39 Pulse 77 04/24/23 08:05 Resp 18 04/24/23 08:05 BP 153/68 H 04/24/23 07:39 Pulse Ox 92 04/24/23 07:39 O2 Del Method Nasal Cannula 04/24/23 07:39 O2 Flow Rate 4 04/24/23 07:39 FiO2 72 04/20/23 08:39 Oxygen Flow Rate 13 04/18/23 10:38 BMI result Body Mass Index 26.3 Appearing in no acute distress head is normocephalic atraumatic eyes pupils are PERRLA sclera is anicteric mouth throat mucous membranes are intact and moist neck is supple no lymphadenopathy, no JVD noted lung sounds diminished heart regular rate rhythm, clear S1, S2 positive bowel sounds, abdomen is soft, nontender neuro patient is alert x3, no focal deficits Discharge Plan Discharge Anticipated Discharge Date/Time: 04/24/23 10:04 Patient Disposition: Home Health Service Discharge Diagnosis: acute on chronic right side heart failure acute on chronic respiratory failure with hypoxia hypo magnesemia NACHO Referrals: Moris Machado III, MD [Primary Care Provider] - 1 Week Shon Samson MD [Physician] - 1 Week (COPD/ILD) Discharge Medications: New furosemide 20 mg Tablet 20 mg PO DAILY 30 Days Qty: 30 0RF Protocol: Hold for SBP< HOLD for SBP < : 90 ipratropium-albuterol 0.5 mg-3 mg(2.5 mg base)/3 mL solution for nebulization 3 ml inhalation Q4-6H PRN (Reason: shortness of breath or wheezing) Qty: 90 0RF prednisone 20 mg tablet 40 mg PO DAILY 5 Days Qty: 10 0RF Continued amlodipine 5 mg tablet 1 tab PO DAILY folic acid 400 mcg tablet 800 mcg PO DAILY tramadol 50 mg tablet 1 tab PO BID PRN (Reason: Pain, Moderate) methotrexate sodium 2.5 mg tablet 5 tab PO WE Rx Instructions: tuesday warfarin 5 mg tablet 5 mg PO MOFR metoprolol tartrate 50 mg tablet 1 tab PO BID omeprazole 20 mg capsule,delayed release(DR/EC) 40 mg PO DAILY timolol maleate 0.5 % drops 1 drp ophthalmic (eye) DAILY rosuvastatin 10 mg tablet 1 tab PO BEDTIME Humira(CF) Pen 40 mg/0.4 mL pen injector kit 40 mg subcut Q2W Rx Instructions: Fridays aspirin 81 mg Tablet,Delayed Release (Dr/Ec) 81 mg PO DAILY prednisone 2.5 mg tablet 7.5 mg PO DAILY warfarin 5 mg tablet 2.5 mg PO SUTUWETHSA nitroglycerin 0.4 mg tablet, sublingual 0.4 mg sublingual NEEDED PRN (Reason: Chest Pain) albuterol sulfate 90 mcg/actuation HFA aerosol inhaler 2 puff inhalation Q4-6H PRN (Reason: Shortness Of Breath Or Wheezing) cholecalciferol (vitamin D3) [Vitamin D3] 25 mcg (1,000 unit) Capsule 25 mcg PO DAILY fluticasone furoate-vilanterol [Breo Ellipta] 200-25 mcg/dose blister with device 1 puff inhalation DAILY Discontinued hydrochlorothiazide 25 mg tablet 1 tab PO DAILY losartan 100 mg tablet 1 tab PO DAILY Discharge Orders: Discharge Order (Routine); Ordered 04/24/23 Ordered By: Blossom Samson Diet: Low salt diet Activity on Discharge: As tolerated Stand Alone Forms: Patient Portal Discharge page Care Plan Goals: see below Health Concerns: acute on chronic respiratory failure acute on chronic heart failure low magnesium levels NACHO call to schedule appointment with finished cloth checker call to schedule follow up with PCP Plan of Treatment: stop taking losartan and hydrochlorothiazide start taking lasix follow low salt diet. check weight daily and call pcp if you gain more then 3 pounds in one day continue inhalers and use nebulizer every 4-6 hours as needed for shortness breath or wheezing oxygen requirement has increased to 4 L at rest and 6 L with exertion take higher dose of prednisone as prescribed and then back to baseline 7.5 mg Assessment: see discharge summary
--- NOTE | 2023-04-24 10:17 | MHC.CM.PN ---
PT CLEARED TO DC HOME TODAY WITH [facility] REFERRAL MADE TO [facility] AND [facility] AWAITING RESPONSES
--- NOTE | 2023-04-24 11:51 | MHC.CM.PN ---
PT CLEARED TO DC HOME TODAY WITH [facility] FAMILY TO TRANSPORT
--- NOTE | 2023-04-27 07:31 | P.CDIM_ITS ---
PROVIDER RESPONSE TEXT: To clarify, the appropriate diagnosis supported by the clinical indicators: Mild persistent QUERY TEXT: PHYSICIAN'S DOCUMENTATION REQUEST Date of Query: 04/20/2023 10:41 AM EDT Patient Name: Tommy Love Admit Date: 04/18/2023 Dear Black Forbes, A review of the medical record indicates additional documentation may be needed. Please review below and update the documentation accordingly. The diagnosis of asthma was documented in the record on 04/19/23. Additional clinical indicators from the record include: Per Hospitalist Progress Note: chronic persistent asthma/ COPD overlap/ interstitial lung disease - continue home inhalers, albuterol p.r.n. and add scheduled updraft - continue home prednisone 7.5 mg daily and steroid inhalers Based on the above, please clarify further specificity regarding the acuity of the asthma: Mild intermittent Mild persistent Moderate persistent Severe persistent Other (explain)Clinically unable to determine (explain)Thank you, Eva Chung RN Use of terms such as suspected, likely, concern for, or probable (associated with a specific diagnosi s that is being evaluated, monitored, or treated as if it exists) are acceptable and can be coded in the inpatient se tting, when documented at the time of discharge. Please use your independent medical judgment in providing your response. THIS QUERY IS PART OF THE PERMANENT MEDICAL RECORD
== END 2023-04-24 11:24 | disposition home health service (06) | DRG 291 ==
LOC: HO.ED 12:55 → HO.EDOVER 13:16 → HO.S3 17:29
PROVIDERS: Hospitalist; Physician Assistant; Physician Assistant Medical; Admitting Provider Physician Assistant; Emergency Provider Emergency Medicine; PCP Internal Medicine; Visit Provider Nurse Practitioner Acute Care
DX: I11.0 Hypertensive heart disease with heart failure (principal); J96.21 Acute and chronic respiratory failure with hypoxia; J44.1 Chronic obstructive pulmonary disease with (acute) exacerbation; N17.9 Acute kidney failure, unspecified; J84.9 Interstitial pulmonary disease, unspecified; I50.813 Acute on chronic right heart failure; E83.42 Hypomagnesemia; I48.0 Paroxysmal atrial fibrillation; M06.9 Rheumatoid arthritis, unspecified; R79.1 Abnormal coagulation profile; J45.30 Mild persistent asthma, uncomplicated; I27.29 Other secondary pulmonary hypertension; Z20.822 Contact with and (suspected) exposure to COVID-19; Z87.891 Personal history of nicotine dependence; Z99.81 Dependence on supplemental oxygen; Z79.01 Long term (current) use of anticoagulants; Z79.51 Long term (current) use of inhaled steroids; Z79.82 Long term (current) use of aspirin; Z79.631 Long term (current) use of antimetabolite agent; Z79.620 Long term (current) use of immunosuppressive biologic; Z79.899 Other long term (current) drug therapy
CPT/HCPCS: 36415; 71045; 80048; 80076; 81003; 83605; 83735; 83880; 84484; 85025; 85610; 85730; 87040; 87633; 87635; 93005; 93306; 94640; 97116; 97162; 99285; J1940; J2920; J3475; Q9957

== ENCOUNTER 2023-06-22 23:31 | Inpatient (IN) | payer MEDICARE, MEDICAID, SELFPAY ==
--- NOTE | ~2023-06-22 | XR_ITS ---
EXAMINATION: XR CHEST CLINICAL INFORMATION: Shortness of breath COMPARISON: 04/23/2023 TECHNIQUE: Frontal view of the chest was obtained. FINDINGS: Cardiac and mediastinal contours are normal. Hyperlucency of the lung apices is again noted with architectural distortion, consistent with known pulmonary emphysema. Bronchiectasis is noted in the perihilar regions and lung bases along with reticular opacities and volume loss from a fibrotic interstitial process. No new foci of consolidation are identified. No pleural effusion or pneumothorax. XR/XR chest 1V IMPRESSION: Pulmonary emphysema with lower lobe bronchiectasis and fibrotic change. No consolidation is identified.
--- NOTE | 2023-06-22 23:39 | ECG_ITS ---
Test Reason : SOB Blood Pressure : / mmHG Vent. Rate : 089 BPM Atrial Rate : 089 BPM P-R Int : 114 ms QRS Dur : 128 ms QT Int : 402 ms P-R-T Axes : 100 122 000 degrees QTc Int : 489 ms Sinus rhythm with Premature atrial complexes Right bundle branch block Possible Lateral infarct (cited on or before 08-JAN-2009) Abnormal ECG When compared with ECG of 18-APR-2023 10:58, Right bundle branch block is now Present Referred By: Patrizia Reyes Electronically Signed By:ADAMS CAMEJO MD
--- NOTE | 2023-06-22 23:40 | ED_ITS ---
HPI - SOB/Dyspnea General Chief Complaint: Dyspnea Stated Complaint: Shortness of breath Time Seen by Provider: 06/22/23 23:39 Source: patient Mode of arrival: EMS History of Present Illness HPI Narrative: 77-year-old male arrives via EMS with 2 days of worsening shortness of breath without changes in medications or reported fevers or chills. EN route patient got 5 mg of albuterol as well as 125 mg Solu-Medrol. EMS states that he was noted to be 77% and patient himself denies any chest pain or palpitations but states that he uses baseline nasal cannula at approximately 4 L. On review of his chart it does appear he has diastolic heart failure. Related Data Home Medications Medication Instructions Recorded Confirmed adalimumab 40 mg/0.4 mL 40 mg subcut Q2W 11/20/21 04/18/23 subcutaneous pen kit (Humira(CF) Pen) amlodipine 5 mg tablet 1 tab PO DAILY 11/20/21 04/18/23 folic acid 400 mcg tablet 800 mcg PO DAILY 11/20/21 04/18/23 methotrexate sodium 2.5 mg tablet 5 tab PO WE 11/20/21 04/18/23 metoprolol tartrate 50 mg tablet 1 tab PO BID 11/20/21 04/18/23 omeprazole 20 mg capsule,delayed 40 mg PO DAILY 11/20/21 04/18/23 release rosuvastatin 10 mg tablet 1 tab PO BEDTIME 11/20/21 04/18/23 timolol maleate 0.5 % eye drops 1 drp ophthalmic (eye) DAILY 11/20/21 04/18/23 tramadol 50 mg tablet 1 tab PO BID PRN Pain, Moderate 11/20/21 04/18/23 warfarin 5 mg tablet 5 mg PO MOFR 11/20/21 04/18/23 albuterol sulfate 90 mcg/actuation 2 puff inhalation Q4-6H PRN 04/18/23 04/18/23 aerosol inhaler Shortness Of Breath Or Wheezing aspirin 81 mg tablet,delayed 81 mg PO DAILY 04/18/23 04/18/23 release cholecalciferol (vitamin D3) 25 25 mcg PO DAILY 04/18/23 04/18/23 mcg (1,000 unit) capsule (Vitamin D3) fluticasone furoate 200 1 puff inhalation DAILY 04/18/23 04/18/23 mcg-vilanterol 25 mcg/dose inhalation powder (Breo Ellipta) nitroglycerin 0.4 mg sublingual 0.4 mg sublingual NEEDED PRN 04/18/23 04/18/23 tablet Chest Pain prednisone 2.5 mg tablet 7.5 mg PO DAILY 04/18/23 04/18/23 warfarin 5 mg tablet 2.5 mg PO SUTUWETHSA 04/18/23 04/18/23 Previous Rx's Medication Instructions Recorded furosemide 20 mg tablet 20 mg PO DAILY 30 days #30 tabs 04/22/23 ipratropium 0.5 mg-albuterol 3 mg 3 ml inhalation Q4-6H PRN 04/22/23 (2.5 mg base)/3 mL nebulization shortness of breath or wheezing soln #90 mL prednisone 20 mg tablet 40 mg PO DAILY 5 days #10 tabs 04/22/23 Allergies Allergy/AdvReac Type Severity Reaction Status Date / Time No Known Allergies Allergy Unknown NOT Verified 11/21/21 19:48 APPLICABLE Review of Systems Review of Systems: Pertinent positives and negatives as stated in [facility] Past Medical History Source: nursing notes reviewed Medical History Atrial fibrillation Chronic anticoagulation Chronic hypoxemic respiratory failure COPD exacerbation Hypertension ILD (interstitial lung disease) Lymphadenopathy Rheumatoid arthritis Social History Social History Household Members: Spouse [facility] Do you presently have visiting nurse or other home services: No Alcohol intake: never Patient Tobacco Use Status: Former Tobacco user Quit Date: 23 years ago Years Smoked: 40 Smoked in Last 30 Days: No Use of substances other than those prescribed or required for medical reasons: No Advance Directives: No Advance Directives Information Provided: Yes service: No Current occupational status: retired Physical Exam Vital Signs: Vital Signs: Last Vital Signs Temp 98.5 F 06/23/23 00:43 Pulse 86 06/23/23 01:24 Resp 17 06/23/23 01:24 BP 141/72 H 06/23/23 01:24 Pulse Ox 96 06/23/23 01:24 O2 Del Method Oxymask 06/23/23 01:24 O2 Flow Rate 7 06/23/23 01:24 BMI result Body Mass Index 26.1 VITAL SIGNS: Reviewed. GENERAL: Well developed, well nourished, in no acute distress. HEAD: Normocephalic/atraumatic EYES: PERRLA, EOMI EARS: Ext canals without abnormality NOSE: Nares patent bilateral OROPHARYNX: no oral lesions noted, posterior pharynx clear and non-erythematous without noted tonsillar enlargement/erythema/exudates NECK: Supple, no adenopathy LUNGS: Good inspiratory effort, tachypnea is present, bibasilar rales noted. SpO2<88> on 8 L wall receiving nebulized treatment CARDIOVASCULAR: Regular rate and rhythm without noted murmurs, no JVD but bilateral 2+ pitting edema in lower extremities ABDOMEN: Soft, non-tender, non-distended with bowel sounds. MUSCULOSKELETAL: No tenderness, deformities, or effusions noted on gross inspection. EXTREMITIES: No cyanosis, clubbing or edema. SKIN: Inspection of the skin reveals no rashes NEUROLOGIC: Alert and oriented x 4. Strength and sensation to light touch were grossly intact x 4. Medications Administered Discontinued Medications Generic Name Dose Route Start Last Admin Trade Name Freq PRN Reason Stop Dose Admin Albuterol Sulfate 7.5 mg/ 0 mg 06/23/23 00:39 06/23/23 01:15 Albuterol/Ipratropium 3 ml INHALE 06/23/23 00:40 7.5 each ONCE ONE Administration Furosemide 80 mg 06/23/23 00:40 06/23/23 00:54 Furosemide 100 Mg/10 Ml Vial IVPUSH 06/23/23 00:41 80 mg ONCE ONE Administration Protocol Medical Decision Making Medical Decision Making [facility] Narrative: 2348: 77-year-old male with history and clinical presentation, DDX: Pneumonia, chronic lung disease, CHF exacerbation, viral illness. Patient has received additional DuoNeb, 80 mg of Lasix. Patient continues to require additional oxygen supplementation, on review of VBG results I do not appreciate any evidence to suggest respiratory acidosis, there is no evidence of hypercapnia at this time. I reviewed all investigations, hematologic indices appear to be chronically stable without leukocytosis or left shift and anemia remains normocytic likely anemia of chronic disease and there is no thrombocytopenia. Patient's INR does appear to be supratherapeutic at 3.5. Due to patient's persistent hypoxia I proceeded to get an ABG which demonstrates hypoxia with PO2 of 60, pH-7.46 and O2 saturation of 87% and this was on the 6 L via Oxymizer. Chemistries demonstrate evidence to further support CHF exacerbation in conjunction with clinical findings of bilateral 2+ lower extremity edema and bibasilar rales with corresponding hypoxia. Troponins are chronically detectable but patient has no complaints of chest pain and there are no acute EKG changes when compared to prior. Otherwise, there is no evidence significant electrolyte abnormalities nor is there an NACHO. On chest x-ray there is no discrete consolidation but there is described lower lobe bronchiectasis and fibrotic change. 0139: I discussed case with inpatient hospitalist who accepts admission. Differential Diagnosis Differential Diagnoses: The differential diagnosis associated with the presentation includes Please see the discussion above Admission/Observation Consideration of admission/observation: Escalation of care including admission/observation considered Please see the discussion above Consult Healthcare Provider Management of the patient was discussed with: Hospitalist Please see the discussion above Lab Data MDM Lab Attestation statement: I reviewed the patient's lab results. Please see the discussion above 06/23/23 00:18 06/23/23 00:18 Labs: Lab Results 06/23/23 06/23/23 06/23/23 Range/Units 00:18 00:18 00:18 WBC 10.5 (4.8-10.8) X10*3/uL RBC 4.26 L (4.60-5.80) X10*6/uL Hgb 11.9 L (14.0-18.0) g/dl Hct 38.6 L (42.0-52.0) % MCV 90.6 (80.0-98.0) fL MCH 27.9 (27.0-33.0) pg MCHC 30.8 L (31.0-36.0) g/dl RDW 17.8 H (11.0-16.0) % Plt Count 209 (160-400) X10*3/uL MPV 10.6 (9.4-12.4) fL Immature Gran % (Auto) 0.4 (0.0-0.4) % Neut % (Auto) 60.8 (45-73) % Lymph % (Auto) 28.3 (20-40) % Loving % (Auto) 9.1 (2-11) % Eos % (Auto) 1.0 (0-4) % Baso % (Auto) 0.4 (0-2) % Lymph # (Auto) 3.0 (1.2-4.9) X10*3/uL Loving # (Auto) 1.0 (0.1-1.2) X10*3/uL Eos # (Auto) 0.1 (0.0-0.4) X10*3/uL Baso # (Auto) 0.0 (0.0-0.2) X10*3/uL Abs Immat Gran (auto) 0.04 H (0.00-0.03) X10*3/uL Absolute Neuts (auto) 6.4 (2.0-8.3) x10*3/uL Absolute Nucleated RBC 0.000 (0.0-0.012) X10*3/uL Nucleated RBC % (auto) 0.0 (0.0-0.2) /100WBC PT 42.2 H (11.1-13.3) SEC INR 3.5 H (0.9-1.1) O2 Saturation % ABG pH at Pt Temp (7.35-7.45) ABG pCO2 at Pt Temp (32-45) mmHg ABG pO2 at Pt Temp (83-108) mmHg ABG HCO3 (22-26) mmol/L ABG Base Excess (Actual) mmol/L VBG pH (7.32-7.43) VBG pCO2 mmHg VBG pO2 mmHg VBG HCO3 (22-26) mmol/L VBG O2 Saturation % VBG Base Excess mmol/L Sodium 132 L (135-145) mmol/L Potassium 3.8 (3.3-5.1) mmol/L Chloride 99 (96-108) mmol/L Carbon Dioxide 20 L (22-29) mmol/L Anion Gap 17 (12-20) BUN 15 (9-16) mg/dL Creatinine 1.38 (0.5-1.4) mg/dL Estim Creat Clear Calc 46.9 Estimated GFR 50 Random Glucose 177 H (60-115) mg/dL Lactic Acid (0.5-2.0) mmol/L Calcium 8.8 D (8.4-10.2) mg/dL Total Bilirubin 0.9 (0.0-1.0) mg/dL AST 31 (5-37) U/L ALT 30 (0-40) U/L Alkaline Phosphatase 75 (39-117) U/L Troponin I High Sens (<3.5-35.0) ng/L B-Natriuretic Peptide (<100) pg/mL Total Protein 7.5 (6.5-8.0) g/dL Albumin 3.6 (3.5-5.0) g/dL Urine Color Urine Appearance Urine pH (5.0-9.0) Ur Specific [place] (1.005-1.025) Urine Protein (Neg-Trace) mg/dL Urine Glucose (UA) (Negative) mg/dL Urine Ketones (Negative) mg/dL Urine Blood (Negative) Urine Nitrite (Negative) Ur Leukocyte Esterase (Negative) Urine RBC (0-2) /HPF Urine WBC (0-5) /HPF Ur Squamous Epith Cells (0-2) /HPF Urine Bacteria (None Seen) Hyaline Casts (0-2) /LPF 06/23/23 06/23/23 06/23/23 Range/Units 00:18 00:18 00:18 WBC (4.8-10.8) X10*3/uL RBC (4.60-5.80) X10*6/uL Hgb (14.0-18.0) g/dl Hct (42.0-52.0) % MCV (80.0-98.0) fL MCH (27.0-33.0) pg MCHC (31.0-36.0) g/dl RDW (11.0-16.0) % Plt Count (160-400) X10*3/uL MPV (9.4-12.4) fL Immature Gran % (Auto) (0.0-0.4) % Neut % (Auto) (45-73) % Lymph % (Auto) (20-40) % Loving % (Auto) (2-11) % Eos % (Auto) (0-4) % Baso % (Auto) (0-2) % Lymph # (Auto) (1.2-4.9) X10*3/uL Loving # (Auto) (0.1-1.2) X10*3/uL Eos # (Auto) (0.0-0.4) X10*3/uL Baso # (Auto) (0.0-0.2) X10*3/uL Abs Immat Gran (auto) (0.00-0.03) X10*3/uL Absolute Neuts (auto) (2.0-8.3) x10*3/uL Absolute Nucleated RBC (0.0-0.012) X10*3/uL Nucleated RBC % (auto) (0.0-0.2) /100WBC PT (11.1-13.3) SEC INR (0.9-1.1) O2 Saturation % ABG pH at Pt Temp (7.35-7.45) ABG pCO2 at Pt Temp (32-45) mmHg ABG pO2 at Pt Temp (83-108) mmHg ABG HCO3 (22-26) mmol/L ABG Base Excess (Actual) mmol/L VBG pH (7.32-7.43) VBG pCO2 mmHg VBG pO2 mmHg VBG HCO3 (22-26) mmol/L VBG O2 Saturation % VBG Base Excess mmol/L Sodium (135-145) mmol/L Potassium (3.3-5.1) mmol/L Chloride (96-108) mmol/L Carbon Dioxide (22-29) mmol/L Anion Gap (12-20) BUN (9-16) mg/dL Creatinine (0.5-1.4) mg/dL Estim Creat Clear Calc Estimated GFR Random Glucose (60-115) mg/dL Lactic Acid 1.9 (0.5-2.0) mmol/L Calcium (8.4-10.2) mg/dL Total Bilirubin (0.0-1.0) mg/dL AST (5-37) U/L ALT (0-40) U/L Alkaline Phosphatase (39-117) U/L Troponin I High Sens 15.5 (<3.5-35.0) ng/L B-Natriuretic Peptide 520 H (<100) pg/mL Total Protein (6.5-8.0) g/dL Albumin (3.5-5.0) g/dL Urine Color Urine Appearance Urine pH (5.0-9.0) Ur Specific [place] (1.005-1.025) Urine Protein (Neg-Trace) mg/dL Urine Glucose (UA) (Negative) mg/dL Urine Ketones (Negative) mg/dL Urine Blood (Negative) Urine Nitrite (Negative) Ur Leukocyte Esterase (Negative) Urine RBC (0-2) /HPF Urine WBC (0-5) /HPF Ur Squamous Epith Cells (0-2) /HPF Urine Bacteria (None Seen) Hyaline Casts (0-2) /LPF 06/23/23 06/23/23 06/23/23 Range/Units 00:24 01:07 01:27 WBC (4.8-10.8) X10*3/uL RBC (4.60-5.80) X10*6/uL Hgb (14.0-18.0) g/dl Hct (42.0-52.0) % MCV (80.0-98.0) fL MCH (27.0-33.0) pg MCHC (31.0-36.0) g/dl RDW (11.0-16.0) % Plt Count (160-400) X10*3/uL MPV (9.4-12.4) fL Immature Gran % (Auto) (0.0-0.4) % Neut % (Auto) (45-73) % Lymph % (Auto) (20-40) % Loving % (Auto) (2-11) % Eos % (Auto) (0-4) % Baso % (Auto) (0-2) % Lymph # (Auto) (1.2-4.9) X10*3/uL Loving # (Auto) (0.1-1.2) X10*3/uL Eos # (Auto) (0.0-0.4) X10*3/uL Baso # (Auto) (0.0-0.2) X10*3/uL Abs Immat Gran (auto) (0.00-0.03) X10*3/uL Absolute Neuts (auto) (2.0-8.3) x10*3/uL Absolute Nucleated RBC (0.0-0.012) X10*3/uL Nucleated RBC % (auto) (0.0-0.2) /100WBC PT (11.1-13.3) SEC INR (0.9-1.1) O2 Saturation 87.0 % ABG pH at Pt Temp 7.46 H (7.35-7.45) ABG pCO2 at Pt Temp 33 (32-45) mmHg ABG pO2 at Pt Temp 60 L (83-108) mmHg ABG HCO3 24 (22-26) mmol/L ABG Base Excess (Actual) 1.2 mmol/L VBG pH 7.44 H (7.32-7.43) VBG pCO2 33 mmHg VBG pO2 53 mmHg VBG HCO3 23 (22-26) mmol/L VBG O2 Saturation 80.0 % VBG Base Excess -0.4 mmol/L Sodium (135-145) mmol/L Potassium (3.3-5.1) mmol/L Chloride (96-108) mmol/L Carbon Dioxide (22-29) mmol/L Anion Gap (12-20) BUN (9-16) mg/dL Creatinine (0.5-1.4) mg/dL Estim Creat Clear Calc Estimated GFR Random Glucose (60-115) mg/dL Lactic Acid (0.5-2.0) mmol/L Calcium (8.4-10.2) mg/dL Total Bilirubin (0.0-1.0) mg/dL AST (5-37) U/L ALT (0-40) U/L Alkaline Phosphatase (39-117) U/L Troponin I High Sens (<3.5-35.0) ng/L B-Natriuretic Peptide (<100) pg/mL Total Protein (6.5-8.0) g/dL Albumin (3.5-5.0) g/dL Urine Color Yellow Urine Appearance Clear Urine pH 6.0 (5.0-9.0) Ur Specific [place] <= 1.005 (1.005-1.025) Urine Protein 30 (1+) H (Neg-Trace) mg/dL Urine Glucose (UA) Negative (Negative) mg/dL Urine Ketones Negative (Negative) mg/dL Urine Blood Negative (Negative) Urine Nitrite Negative (Negative) Ur Leukocyte Esterase Negative (Negative) Urine RBC 0-2 (0-2) /HPF Urine WBC 0-5 (0-5) /HPF Ur Squamous Epith Cells 0-2 (0-2) /HPF Urine Bacteria None Seen (None Seen) Hyaline Casts 0-2 (0-2) /LPF Independent Interpretation I performed an independent interpretation of an: EKG Interpretation: Sinus rhythm with PACs, HR-89, RBBB, no STEMI, WA/QTC within normal limits. Radiology Impression Radiologist Impression: No pneumonia, otherwise my interpretation is in agreement with radiology's impression External Record Review External record reviewed: Inpatient record, Outpatient record and Prior outpatient labs Chronic Conditions Patient?s care impacted by: Other COPD Critical Care Time Critical Care Time Critical Care Time: Yes Total Critical Care Time: 30 Attestation: I personally attest to this time spent taking care of the patient. Discharge Plan Discharge Clinical Impression: Acute respiratory failure with hypoxia, CHF exacerbation Patient Disposition: Admitted As Inpatient
[2023-06-23] VITALS (19 sets, daily range): BP systolic 128–156; BP diastolic 56–81; PULSE 78–170; RESP 17–25; TEMP 35.8–37; O2SAT 83–96; BMI 26.1
--- NOTE | 2023-06-23 | ECG_ITS ---
Test Reason : A fib Blood Pressure : / mmHG Vent. Rate : 105 BPM Atrial Rate : 000 BPM P-R Int : 000 ms QRS Dur : 132 ms QT Int : 402 ms P-R-T Axes : 000 097 012 degrees QTc Int : 531 ms Atrial fibrillation with rapid ventricular response with premature ventricular or aberrantly conducted complexes Right bundle branch block Possible Lateral infarct (cited on or before 08-JAN-2009) T wave abnormality, consider inferior ischemia Abnormal ECG When compared with ECG of 23-JUN-2023 02:55, Significant changes have occurred Referred By: Jona Beasley Electronically Signed By:
[2023-06-23 00:26] LABS: MANUAL DIFF FLAG NO
[2023-06-23 00:28] LABS: Basophils Percent Auto 0.4 % (0-2); Eosinophils Absolute Auto 0.1 X10*3/uL (0.0-0.4); Hematocrit 38.6 % (42.0-52.0); Hemoglobin 11.9 g/dl (14.0-18.0); Imm Gran Abs Auto 0.04 X10*3/uL (0.00-0.03); Imm Gran Pct Auto 0.4 % (0.0-0.4); Lymphocytes Percent Auto 28.3 % (20-40); Mean Corpuscular HGB Conc 30.8 g/dl (31.0-36.0); Mean Corpuscular Hemoglobin 27.9 pg (27.0-33.0); Mean Corpuscular Volume 90.6 fL (80.0-98.0); Mean Platelet Volume 10.6 fL (9.4-12.4); Monocytes Percent Auto 9.1 % (2-11); Neutrophils Absolute Auto 6.4 x10*3/uL (2.0-8.3); Neutrophils Percent Auto 60.8 % (45-73); Platelet Count 209 X10*3/uL (160-400); Red Blood Count 4.26 X10*6/uL (4.60-5.80); Red Cell Distribution Width 17.8 % (11.0-16.0); White Blood Count 10.5 X10*3/uL (4.8-10.8)
[2023-06-23 00:34] LABS: INTERNATIONAL NORM RATIO 3.5 (0.9-1.1); Prothrombin Time 42.2 SEC (11.1-13.3)
[2023-06-23 00:36] LABS: Venous Blood Gas Refer to POC result
[2023-06-23 00:37] LABS: VBG Base Excess -0.4 mmol/L; VBG HCO3 23 mmol/L (22-26); VBG pCO2 33 mmHg; VBG pH 7.44 (7.32-7.43); VBG pO2 53 mmHg
--- NOTE | 2023-06-23 00:42 | PC.NURSE ---
Pt 83-88% on 6 liters of oxygen. resp called mask oxymizer placed
[2023-06-23 00:45] LABS: Lactic Acid 1.9 mmol/L (0.5-2.0)
[2023-06-23 00:50] LABS: Alanine Aminotransferase 30 U/L (0-40); Albumin Level 3.6 g/dL (3.5-5.0); Alkaline Phosphatase 75 U/L (39-117); Anion Gap 17 (12-20); Aspartate Amino Transferase 31 U/L (5-37); Bilirubin Total 0.9 mg/dL (0.0-1.0); Blood Urea Nitrogen 15 mg/dL (9-16); Calcium 8.8 mg/dL (8.4-10.2); Carbon Dioxide 20 mmol/L (22-29); Chloride 99 mmol/L (96-108); Creatinine Clr Calc Pharmacy 46.9; Estimated Glomerular Filt Rate 50; Glucose Random 177 mg/dL (60-115); Potassium 3.8 mmol/L (3.3-5.1); Sodium 132 mmol/L (135-145); Total Protein 7.5 g/dL (6.5-8.0)
[2023-06-23 00:53] LABS: Troponin-I High Sensitivity 15.5 ng/L (<3.5-35.0)
[2023-06-23 00:54] LABS: B Type Natriuretic Peptide 520 pg/mL (<100)
[2023-06-23] MEDS: Furosemide 100 MG/10 ML VIAL 80 MG IVPUSH (00:54)
--- NOTE | 2023-06-23 00:55 | PC.NURSE ---
resp therapy in to obtain ABG, medicated with 80mg of lasix ivp
--- NOTE | 2023-06-23 01:10 | MHC.EDTECH ---
PATIENT BLOOD CULTURE AND SENT TO LAB ,VITALS SIGN TAKEN .
[2023-06-23 01:15] LABS: ABG Base Excess 1.2 mmol/L; ABG HCO3 24 mmol/L (22-26); ABG pCO2 33 mmHg (32-45); ABG pH 7.46 (7.35-7.45); ABG pO2 60 mmHg (83-108)
[2023-06-23] MEDS: Albuterol Sulfate 7.5 MG, Albuterol/Iprat 2.5/0.5MG 3 ML 3 ML INHALE (01:15)
[2023-06-23 01:16] LABS: ABG Refer to POC result
[2023-06-23 01:34] LABS: Appearance Urine Clear; Color Urine Yellow; Glucose Urine UA Negative (Negative); Leukocyte Esterase Urine Negative (Negative); Nitrite Urine Negative (Negative); Specific Gravity - Urine <= 1.005 (1.005-1.025); UMIC TRIGGER UACC YES; Urine Blood Negative (Negative); Urine Ketones Negative (Negative); Urine Protein 30 (1+) mg/dL (Neg-Trace)
[2023-06-23 01:38] LABS: Bacteria Urine None Seen (None Seen); Hyaline Casts Urine 0-2 /LPF (0-2); RBC Urine 0-2 /HPF (0-2); Squamous Epithelial Cell Urine 0-2 /HPF (0-2); WBC Urine 0-5 /HPF (0-5)
[2023-06-23] MEDS: Enoxaparin Sodium 40 MG/0.4 ML SYRINGE SUBCUT (02:22)
--- NOTE | 2023-06-23 02:50 | ECG_ITS ---
Test Reason : REPECT Blood Pressure : / mmHG Vent. Rate : 085 BPM Atrial Rate : 085 BPM P-R Int : 130 ms QRS Dur : 128 ms QT Int : 400 ms P-R-T Axes : 092 115 -15 degrees QTc Int : 476 ms Sinus rhythm with Premature atrial complexes Right bundle branch block Possible Lateral infarct (cited on or before 08-JAN-2009) Cannot rule out Inferior infarct , age undetermined Abnormal ECG When compared with ECG of 22-JUN-2023 23:59, No significant change was found Referred By: Patrizia Reyes Electronically Signed By:ADAMS CAMEJO MD
[2023-06-23 04:48] LABS: Basophils Percent Auto 0.1 % (0-2); Hematocrit 38.5 % (42.0-52.0); Hemoglobin 12.2 g/dl (14.0-18.0); Imm Gran Abs Auto 0.02 X10*3/uL (0.00-0.03); Imm Gran Pct Auto 0.3 % (0.0-0.4); Lymphocytes Absolute Auto 0.4 X10*3/uL (1.2-4.9); Lymphocytes Percent Auto 5.1 % (20-40); MANUAL DIFF FLAG SCAN; Mean Corpuscular HGB Conc 31.7 g/dl (31.0-36.0); Mean Corpuscular Hemoglobin 28.2 pg (27.0-33.0); Mean Corpuscular Volume 89.1 fL (80.0-98.0); Mean Platelet Volume 10.9 fL (9.4-12.4); Monocytes Absolute Auto 0.1 X10*3/uL (0.1-1.2); Monocytes Percent Auto 0.8 % (2-11); Neutrophils Absolute Auto 7.1 x10*3/uL (2.0-8.3); Neutrophils Percent Auto 93.7 % (45-73); Platelet Count 192 X10*3/uL (160-400); Red Blood Count 4.32 X10*6/uL (4.60-5.80); Red Cell Distribution Width 17.5 % (11.0-16.0); SCAN SMEAR FLAG 1; White Blood Count 7.6 X10*3/uL (4.8-10.8)
[2023-06-23 05:04] LABS: Alanine Aminotransferase 29 U/L (0-40); Albumin Level 3.7 g/dL (3.5-5.0); Alkaline Phosphatase 76 U/L (39-117); Anion Gap 18 (12-20); Aspartate Amino Transferase 21 U/L (5-37); Bilirubin Total 0.9 mg/dL (0.0-1.0); Blood Urea Nitrogen 16 mg/dL (9-16); Calcium 9.2 mg/dL (8.4-10.2); Carbon Dioxide 19 mmol/L (22-29); Chloride 100 mmol/L (96-108); Estimated Glomerular Filt Rate 51; Glucose Random 246 mg/dL (60-115); Potassium 3.5 mmol/L (3.3-5.1); Sodium 133 mmol/L (135-145); Total Protein 7.7 g/dL (6.5-8.0)
[2023-06-23 05:09] LABS: SLIDE REVIEW VERIFIED
--- NOTE | 2023-06-23 06:06 | P.HPHOSP_ITS ---
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 . Symptoms started today, he also noticed lower extremity edema for the past 2 days, no cough, no sputum production, no fever or chills fever. No chest pain, no abdominal pain, nausea vomiting, no diarrhea constipation, no urinary symptoms On arrival to the ED patient hemodynamically found to be satting 83% on room air, placed on OxyMask, and is currently on 6 L Labs are significant for pH of 7.46, sodium of 132, BNP of 520, UA negative, chest x-ray shows Pulmonary emphysema with lower lobe bronchiectasis and fibrotic changes, with no consolidation Review of Systems Review of Systems: Yes all other systems are reviewed and are negative [facility] Medical History Atrial fibrillation Chronic anticoagulation Chronic hypoxemic respiratory failure COPD exacerbation Hypertension ILD (interstitial lung disease) Lymphadenopathy Rheumatoid arthritis Social History Household Members: Spouse Housing: Condominium Do you presently have visiting nurse or other home services: No Alcohol intake: never Patient Tobacco Use Status: Former Tobacco user Quit Date: 23 years ago Years Smoked: 40 Smoked in Last 30 Days: No Use of substances other than those prescribed or required for medical reasons: No Advance Directives: No Advance Directives Information Provided: Yes service: No Current occupational status: retired [employer] Allergies Allergy/AdvReac Type Severity Reaction Status Date / Time No Known Allergies Allergy Unknown NOT Verified 11/21/21 19:48 APPLICABLE Active Medications: Current Medications Acetaminophen (Acetaminophen 325 Mg Tablet) 650 mg PO Q6H PRN PRN Reason: Pain, Mild (Pain Scale 1-3) Docusate Sodium (Docusate Sodium 100 Mg Capsule) 100 mg PO DAILY PRN PRN Reason: Constipation Enoxaparin Sodium (Enoxaparin Sodium 40 Mg/0.4 Ml Syringe) 40 mg SUBCUT Q24H JEN Last Admin: 06/23/23 02:22 Dose: 40 mg Furosemide (Furosemide 40 Mg/4 Ml Vial) 40 mg IVPUSH DAILY [facility]; Protocol Ondansetron HCl (Ondansetron Hcl 4 Mg/2 Ml Vial) 4 mg IVPUSH Q8H PRN PRN Reason: Nausea and Vomiting Sodium Chloride (0.9 % Sodium Chloride Flush 3 Ml Syringe) 3 ml IVFLUSH QSHIFT [facility] Home Medications Medication Instructions Recorded Confirmed Last Taken Type adalimumab 40 mg/0.4 mL 40 mg subcut Q2W 11/20/21 06/23/23 11/13/21 History subcutaneous pen kit (Humira(CF) Pen) amlodipine 5 mg tablet 1 tab PO DAILY 11/20/21 04/18/23 Unknown History folic acid 400 mcg tablet 800 mcg PO DAILY 11/20/21 06/23/23 Unknown History methotrexate sodium 2.5 mg tablet 5 tab PO WE 11/20/21 06/23/23 Unknown History metoprolol tartrate 50 mg tablet 1 tab PO BID 11/20/21 06/23/23 Unknown History omeprazole 20 mg capsule,delayed 40 mg PO DAILY 11/20/21 06/23/23 Unknown History release rosuvastatin 10 mg tablet 1 tab PO BEDTIME 11/20/21 06/23/23 Unknown History timolol maleate 0.5 % eye drops 1 drp ophthalmic (eye) DAILY 11/20/21 06/23/23 Unknown History tramadol 50 mg tablet 1 tab PO BID PRN Pain, Moderate 11/20/21 06/23/23 06/23/23 History warfarin 5 mg tablet 5 mg PO MOFR 11/20/21 06/23/23 Unknown History albuterol sulfate 90 mcg/actuation 2 puff inhalation Q4-6H PRN 04/18/23 06/23/23 06/23/23 History aerosol inhaler Shortness Of Breath Or Wheezing aspirin 81 mg tablet,delayed 81 mg PO DAILY 04/18/23 06/23/23 Unknown History release cholecalciferol (vitamin D3) 25 25 mcg PO DAILY 04/18/23 06/23/23 Unknown History mcg (1,000 unit) capsule (Vitamin D3) fluticasone furoate 200 1 puff inhalation DAILY 04/18/23 06/23/23 Unknown History mcg-vilanterol 25 mcg/dose inhalation powder (Breo Ellipta) nitroglycerin 0.4 mg sublingual 0.4 mg sublingual NEEDED PRN 04/18/23 06/23/23 Unknown History tablet Chest Pain prednisone 2.5 mg tablet 7.5 mg PO DAILY 04/18/23 06/23/23 Unknown History warfarin 5 mg tablet 2.5 mg PO SUTUWETHSA 04/18/23 06/23/23 Unknown History Physical Exam Vital Signs and Narrative: Vital Signs: Last Vital Signs Temp 97.9 F 06/23/23 06:00 Pulse 94 06/23/23 06:00 Resp 19 06/23/23 06:00 BP 146/68 H 06/23/23 06:00 Pulse Ox 92 06/23/23 06:00 O2 Del Method Oxymask 06/23/23 06:00 O2 Flow Rate 8 06/23/23 06:00 BMI result Body Mass Index 26.1 Const: Other: Crackles bilaterally General: cooperative Orientation/consciousness: patient oriented x3 Eyes: General: appearance normal, both eyes and all related structures Resp: Effort & Inspection: normal respiratory effort Cardio: Rate: regular rate Rhythm: regular rhythm GI: Palpation (GI): Soft to palpation Auscultation: normal bowel sounds Skin: General skin exam: no rashes or lesions noted Neuro: General: patient oriented x3 Cognition (Neuro): normal cognition Extrem: Other: 2+ pitting edema General: Yes normal to inspection Results Labs 06/23/23 04:15 06/23/23 04:15 Labs: Laboratory Results - last 24 hr 06/23/23 06/23/23 06/23/23 00:18 00:18 00:18 MCV 90.6 MCH 27.9 MCHC 30.8 L RDW 17.8 H Plt Count 209 MPV 10.6 Immature Gran % (Auto) 0.4 Neut % (Auto) 60.8 Lymph % (Auto) 28.3 [place] % (Auto) 9.1 Eos % (Auto) 1.0 Baso % (Auto) 0.4 Lymph # (Auto) 3.0 [place] # (Auto) 1.0 Eos # (Auto) 0.1 Baso # (Auto) 0.0 Abs Immat Gran (auto) 0.04 H Absolute Neuts (auto) 6.4 Absolute Nucleated RBC 0.000 Nucleated RBC % (auto) 0.0 Smear Tech's Comments PT 42.2 H INR 3.5 H O2 Saturation ABG pH at Pt Temp ABG pCO2 at Pt Temp ABG pO2 at Pt Temp ABG HCO3 ABG Base Excess (Actual) VBG pH VBG pCO2 VBG pO2 VBG HCO3 VBG O2 Saturation VBG Base Excess Anion Gap 17 Estim Creat Clear Calc 46.9 Estimated GFR 50 Random Glucose 177 H Lactic Acid Calcium 8.8 D Total Bilirubin 0.9 AST 31 ALT 30 Alkaline Phosphatase 75 B-Natriuretic Peptide Total Protein 7.5 Albumin 3.6 Urine Color Urine Appearance Urine pH Ur Specific [place] Urine Protein Urine Glucose (UA) Urine Ketones Urine Blood Urine Nitrite Ur Leukocyte Esterase Urine RBC Urine WBC Ur Squamous Epith Cells Urine Bacteria Hyaline Casts 06/23/23 06/23/23 06/23/23 00:18 00:18 00:24 MCV MCH MCHC RDW Plt Count MPV Immature Gran % (Auto) Neut % (Auto) Lymph % (Auto) [place] % (Auto) Eos % (Auto) Baso % (Auto) Lymph # (Auto) [place] # (Auto) Eos # (Auto) Baso # (Auto) Abs Immat Gran (auto) Absolute Neuts (auto) Absolute Nucleated RBC Nucleated RBC % (auto) Smear Tech's Comments PT INR O2 Saturation ABG pH at Pt Temp ABG pCO2 at Pt Temp ABG pO2 at Pt Temp ABG HCO3 ABG Base Excess (Actual) VBG pH 7.44 H VBG pCO2 33 VBG pO2 53 VBG HCO3 23 VBG O2 Saturation 80.0 VBG Base Excess -0.4 Anion Gap Estim Creat Clear Calc Estimated GFR Random Glucose Lactic Acid 1.9 Calcium Total Bilirubin AST ALT Alkaline Phosphatase B-Natriuretic Peptide 520 H Total Protein Albumin Urine Color Urine Appearance Urine pH Ur Specific [place] Urine Protein Urine Glucose (UA) Urine Ketones Urine Blood Urine Nitrite Ur Leukocyte Esterase Urine RBC Urine WBC Ur Squamous Epith Cells Urine Bacteria Hyaline Casts 06/23/23 06/23/23 06/23/23 01:07 01:27 04:15 MCV 89.1 MCH 28.2 MCHC 31.7 RDW 17.5 H Plt Count 192 MPV 10.9 Immature Gran % (Auto) 0.3 Neut % (Auto) 93.7 H Lymph % (Auto) 5.1 L [place] % (Auto) 0.8 L Eos % (Auto) 0.0 Baso % (Auto) 0.1 Lymph # (Auto) 0.4 L [place] # (Auto) 0.1 Eos # (Auto) 0.0 Baso # (Auto) 0.0 Abs Immat Gran (auto) 0.02 Absolute Neuts (auto) 7.1 Absolute Nucleated RBC 0.000 Nucleated RBC % (auto) 0.0 Smear Tech's Comments VERIFIED PT INR O2 Saturation 87.0 ABG pH at Pt Temp 7.46 H ABG pCO2 at Pt Temp 33 ABG pO2 at Pt Temp 60 L ABG HCO3 24 ABG Base Excess (Actual) 1.2 VBG pH VBG pCO2 VBG pO2 VBG HCO3 VBG O2 Saturation VBG Base Excess Anion Gap Estim Creat Clear Calc Estimated GFR Random Glucose Lactic Acid Calcium Total Bilirubin AST ALT Alkaline Phosphatase B-Natriuretic Peptide Total Protein Albumin Urine Color Yellow Urine Appearance Clear Urine pH 6.0 Ur Specific [place] <= 1.005 Urine Protein 30 (1+) H Urine Glucose (UA) Negative Urine Ketones Negative Urine Blood Negative Urine Nitrite Negative Ur Leukocyte Esterase Negative Urine RBC 0-2 Urine WBC 0-5 Ur Squamous Epith Cells 0-2 Urine Bacteria None Seen Hyaline Casts 0-2 06/23/23 04:15 MCV MCH MCHC RDW Plt Count MPV Immature Gran % (Auto) Neut % (Auto) Lymph % (Auto) [place] % (Auto) Eos % (Auto) Baso % (Auto) Lymph # (Auto) [place] # (Auto) Eos # (Auto) Baso # (Auto) Abs Immat Gran (auto) Absolute Neuts (auto) Absolute Nucleated RBC Nucleated RBC % (auto) Smear Tech's Comments PT INR O2 Saturation ABG pH at Pt Temp ABG pCO2 at Pt Temp ABG pO2 at Pt Temp ABG HCO3 ABG Base Excess (Actual) VBG pH VBG pCO2 VBG pO2 VBG HCO3 VBG O2 Saturation VBG Base Excess Anion Gap 18 Estim Creat Clear Calc 48.0 Estimated GFR 51 Random Glucose 246 H Lactic Acid Calcium 9.2 Total Bilirubin 0.9 AST 21 ALT 29 Alkaline Phosphatase 76 B-Natriuretic Peptide Total Protein 7.7 Albumin 3.7 Urine Color Urine Appearance Urine pH Ur Specific [place] Urine Protein Urine Glucose (UA) Urine Ketones Urine Blood Urine Nitrite Ur Leukocyte Esterase Urine RBC Urine WBC Ur Squamous Epith Cells Urine Bacteria Hyaline Casts Imaging Radiologist's Impressions: Impressions Chest X-Ray 06/22/23 23:55 IMPRESSION: Pulmonary emphysema with lower lobe bronchiectasis and fibrotic change. No consolidation is identified. Assessment and Plan (1) Acute respiratory failure with hypoxia: Status: Acute (2) CHF exacerbation: Status: Acute Plan 77-year-old male with past medical history of CHF with preserved ejection fraction, COPD, HTN, comes into the hospital with complaints of shortness of breath # acute hypoxic respiratory failure - secondary to CHF, PE less likely, COPD us likely SC has no cough, no sputum production, pneumonia less likely - O2 satting 83% on room air - will treat with IV Lasix, oxygen as required - monitor respiratory status # CHF exacerbation - elevated BNP, lower extremity edema, dyspnea, orthopnea and PND - will treat with Lasix, strict I&O, low-sodium diet, daily weight - echocardiogram # hypertension - stable - continue home antihypertensives # COPD - not in exacerbation - continue home inhalers DVT prophylaxis: Lovenox Given patient's need for diuretics patient require minimum 2 nights inpatient hospital stay for further management and monitoring Time Spent With Patient Time: Total time managing care of this patient today ____ minutes. Quality Stroke Does the patient have a stroke diagnosis?: No VTE Prior VTE?: No VTE Risk Level:: Medical - moderate - high VTE Device Contraindication: Treatment Not Indicated VTE Drug Contraindication: N/A - Med Ordered
--- NOTE | 2023-06-23 07:22 | PHA.MEDREC ---
Pharmacy Consult ? Medication Reconciliation Pharmacy has completed the medication reconciliation. Reviewed and corrected med rec done by nursing overnight. Amlodipine, losartan, and ofev were left off of pt home med list. Provider notified.
[2023-06-23] MEDS: Fluticasone/Vilanterol 200/25 BLST.W.DEV 1 PUFF INHALE (09:43)
[2023-06-23] MEDS: Furosemide 40 MG/4 ML VIAL IVPUSH ×2 (10:04→17:25)
[2023-06-23] MEDS: Aspirin Enteric Coated 81 MG TABLET.DR PO (10:04)
[2023-06-23] MEDS: Folic Acid 1 MG TABLET PO (10:04)
[2023-06-23] MEDS: Cholecalciferol (Vitamin D3) 25 MCG TABLET PO (10:05)
[2023-06-23] MEDS: 0.9 % Sodium Chloride Flush 3 ML SYRINGE IVFLUSH ×2 (10:05→17:26)
[2023-06-23] MEDS: Metoprolol Tartrate 50 MG TABLET PO ×2 (10:05→19:39)
[2023-06-23] MEDS: predniSONE 5 MG TABLET 7.5 MG PO (10:06)
--- NOTE | 2023-06-23 11:25 | P.CONCA_ITS ---
History of Present Illness History of Present Illness Date of Service: 06/23/23 Requesting physician: Danelle Hardin Consult reason: congestive heart failure Chief complaint: CHF Exacerbation, Hypoxia Narrative: I was consulted to see Tommy in cardiology consultation today for acute respiratory failure with findings suggestive heart failure. History was obtained with help of a certified ui application developer at bedside. Patient with under lying severe COPD using home oxygen with minimal functionality at home but able to do his activity of daily living. Uses oxygen at nighttime and with activity. He came to the hospital as he was getting more short of breath over the last 2 days. He has also noticed bilateral lower extremity swelling further week. No clear history of orthopnea or this is difficult to assess. He denies any worse knanan weight gain although I am not sure if he monitors this at home. He denies any palpitations or chest discomfort. Denies any clear wheezing or recent upper respiratory lower respiratory symptoms. Denies any fever or chills. Denies lightheadedness, syncope. He said he has been taking all his medications regularly. He has prior history of diastolic heart failure with last echocardiogram showing LVEF of 65% with moderate pulmonary hypertension and moderately dilated right ventricle. Review of Systems Constitutional: Constitutional: Reports no additional constitutional complaints Eyes: Eyes: Reports no additional eye complaints Cardiovascular: Cardiovascular: Denies chest pain, Reports leg edema, Denies lightheadedness, Denies Loss of Consciousness, Denies palpitations and Reports dyspnea on exertion Respiratory: Respiratory: Denies cough, Reports dyspnea on exertion and Denies wheezing Gastrointestinal: Gastrointestinal: Reports no additional gastrointestinal complaints Genitourinary: Genitourinary: Reports no additional male genitourinary complaints Musculoskeletal: Musculoskeletal: Reports no additional musculoskeletal complaints Integumentary/Breasts: Skin/Breast: Reports system reviewed and no additional complaints, except as docu Neurologic: Reports system reviewed and no additional complaints, except as documented Endocrine: Endocrine: Denies palpitations Allergic/Immunologic: Allergic/Immunologic: Denies wheezing PMFSH Past Medical History Medical History Atrial fibrillation Chronic anticoagulation Chronic hypoxemic respiratory failure COPD exacerbation Hypertension ILD (interstitial lung disease) Lymphadenopathy Rheumatoid arthritis Social History Social History Household Members: Spouse Housing: Condominium Do you presently have visiting nurse or other home services: No Alcohol intake: never Patient Tobacco Use Status: Former Tobacco user Quit Date: 23 years ago Years Smoked: 40 Smoked in Last 30 Days: No Use of substances other than those prescribed or required for medical reasons: No Advance Directives: No Advance Directives Information Provided: Yes Nutrition Risks: No Nutritional Risk service: No Current occupational status: retired Meds Allergies Allergy/AdvReac Type Severity Reaction Status Date / Time No Known Allergies Allergy Unknown NOT Verified 11/21/21 19:48 APPLICABLE Active Medications: Current Medications Acetaminophen (Acetaminophen 325 Mg Tablet) 650 mg PO Q6H PRN PRN Reason: Pain, Mild (Pain Scale 1-3) Albuterol Sulfate (Albuterol Sulfate 90 Mcg 8 Gm Inhaler) 2 puff INHALE Q4H PRN PRN Reason: Shortness Of Breath Or Wheezing Aspirin (Aspirin Enteric Coated 81 Mg Tablet.) 81 mg PO DAILY [facility] Last Admin: 06/23/23 10:04 Dose: 81 mg Atorvastatin Calcium (Atorvastatin Calcium 40 Mg Tablet) 40 mg PO BEDTIME [facility] Docusate Sodium (Docusate Sodium 100 Mg Capsule) 100 mg PO DAILY PRN PRN Reason: Constipation Empagliflozin (Empagliflozin 10 Mg Tablet) 10 mg PO DAILY [facility] Fluticasone/Vilanterol (Fluticasone/Vilanterol 200/25 Blst.W.Dev) 1 puff INHALE RDAILY [facility] Last Admin: 06/23/23 09:43 Dose: 1 puff Folic Acid (Folic Acid 1 Mg Tablet) 1 mg PO DAILY [facility] Last Admin: 06/23/23 10:04 Dose: 1 mg Furosemide (Furosemide 40 Mg/4 Ml Vial) 40 mg IVPUSH BID@0900,1800 [facility]; Protocol Methotrexate (Methotrexate Sodium 2.5 Mg Tablet) 12.5 mg PO [facility] Metoprolol Tartrate (Metoprolol Tartrate 50 Mg Tablet) 50 mg PO BID [facility]; Protocol Last Admin: 06/23/23 10:05 Dose: 50 mg Nitroglycerin (Nitroglycerin 0.4 Mg Tab.Subl) 0.4 mg SUBLINGUAL Q5MX3 PRN PRN Reason: Chest Pain Omeprazole (Omeprazole 40 Mg Capsule.) 40 mg PO DAILY@0630 [facility] Ondansetron HCl (Ondansetron Hcl 4 Mg/2 Ml Vial) 4 mg IVPUSH Q8H PRN PRN Reason: Nausea and Vomiting Prednisone (Prednisone 5 Mg Tablet) 7.5 mg PO DAILY [facility] Last Admin: 06/23/23 10:06 Dose: 7.5 mg Sodium Chloride (0.9 % Sodium Chloride Flush 3 Ml Syringe) 3 ml IVFLUSH QSHIFT [facility] Last Admin: 06/23/23 10:05 Dose: 3 ml Timolol Maleate (Timolol Maleate 0.5 % Oph [place] 5 Ml Drbtl) 1 drop EYE-BOTH DAILY [facility] Tramadol HCl (Tramadol Hcl 50 Mg Tablet) 50 mg PO BID PRN PRN Reason: Pain, Moderate Vitamin D (Cholecalciferol (Vitamin D3) 25 Mcg Tablet) 25 mcg PO DAILY [facility] Last Admin: 06/23/23 10:05 Dose: 25 mcg Warfarin Sodium (Warfarin Sodium 2.5 Mg Tablet) 2.5 mg PO SUTUWETHSA [facility] Last Admin: 06/23/23 07:42 Dose: Not Given Warfarin Sodium (Warfarin Sodium 5 Mg Tablet) 5 mg PO MOFR [facility] Home Medications Medication Instructions Recorded Confirmed Last Taken Type adalimumab 40 mg/0.4 mL 40 mg subcut Q2W 11/20/21 06/23/23 11/13/21 History subcutaneous pen kit (Humira(CF) Pen) folic acid 400 mcg tablet 800 mcg PO DAILY 11/20/21 06/23/23 Unknown History methotrexate sodium 2.5 mg tablet 5 tab PO WE 11/20/21 06/23/23 Unknown History metoprolol tartrate 50 mg tablet 1 tab PO BID 11/20/21 06/23/23 Unknown History rosuvastatin 10 mg tablet 1 tab PO BEDTIME 11/20/21 06/23/23 Unknown History timolol maleate 0.5 % eye drops 1 drp ophthalmic (eye) DAILY 11/20/21 06/23/23 Unknown History tramadol 50 mg tablet 1 tab PO BID PRN Pain, Moderate 11/20/21 06/23/23 06/23/23 History warfarin 5 mg tablet 5 mg PO MOFR 11/20/21 06/23/23 Unknown History albuterol sulfate 90 mcg/actuation 2 puff inhalation Q4-6H PRN 04/18/23 06/23/23 06/23/23 History aerosol inhaler Shortness Of Breath Or Wheezing aspirin 81 mg tablet,delayed 81 mg PO DAILY 04/18/23 06/23/23 Unknown History release cholecalciferol (vitamin D3) 25 25 mcg PO DAILY 04/18/23 06/23/23 Unknown History mcg (1,000 unit) capsule (Vitamin D3) fluticasone furoate 200 1 puff inhalation DAILY 04/18/23 06/23/23 Unknown History mcg-vilanterol 25 mcg/dose inhalation powder (Breo Ellipta) nitroglycerin 0.4 mg sublingual 0.4 mg sublingual NEEDED PRN 04/18/23 06/23/23 Unknown History tablet Chest Pain prednisone 2.5 mg tablet 7.5 mg PO DAILY 04/18/23 06/23/23 Unknown History warfarin 5 mg tablet 2.5 mg PO SUTUWETHSA 04/18/23 06/23/23 Unknown History amlodipine 5 mg tablet 5 mg PO DAILY 06/23/23 06/23/23 Unknown History losartan 25 mg tablet 50 mg PO DAILY 06/23/23 06/23/23 Unknown History nintedanib 150 mg capsule (Ofev) 150 mg PO BID 06/23/23 06/23/23 Unknown History omeprazole 40 mg capsule,delayed 40 mg PO DAILY@0630 06/23/23 06/23/23 Unknown History release Physical Exam Vital Signs: Vital Signs: Last Vital Signs Temp 97.9 F 06/23/23 06:00 Pulse 99 06/23/23 10:03 Resp 22 H 06/23/23 10:03 BP 141/72 H 06/23/23 10:03 Pulse Ox 94 06/23/23 10:03 O2 Del Method [place] Nasal C annula 06/23/23 10:03 O2 Flow Rate 3 06/23/23 10:03 BMI result Body Mass Index 26.1 Const: General: cooperative, alert, awake and in distress mild and respiratory Nutritional Appearance: average body habitus Orientation/consciousness: patient oriented x3 Limitations: no limitations HEENT: Head: Yes normocephalic and Yes atraumatic Neck: Neck: Yes trachea midline, Yes supple and Yes JVD Resp: Effort & Inspection: normal respiratory effort Auscultation: crackles bilateral at the base and wheezes scattered wheezes Cardio: Jugular venous distension: JVD Palpation: normal PMI Rate: regular rate Rhythm: regular rhythm Heart sounds: S1 normal heart sound present, S2 normal heart sound present, no click, no gallops, no murmurs and no rubs GI: Auscultation: normal bowel sounds Skin: General skin exam: no rashes or lesions noted Neuro: General: patient oriented x3 and no focal motor deficits Extrem: General: No clubbing, No cyanosis and Yes edema Objective Labs and Meds 06/23/23 04:15 06/23/23 04:15 Lab results: Laboratory Results - last 24 hr 06/23/23 06/23/23 06/23/23 00:18 00:18 00:18 WBC 10.5 RBC 4.26 L Hgb 11.9 L Hct 38.6 L MCV 90.6 MCH 27.9 MCHC 30.8 L RDW 17.8 H Plt Count 209 MPV 10.6 Immature Gran % (Auto) 0.4 Neut % (Auto) 60.8 Lymph % (Auto) 28.3 [place] % (Auto) 9.1 Eos % (Auto) 1.0 Baso % (Auto) 0.4 Lymph # (Auto) 3.0 [place] # (Auto) 1.0 Eos # (Auto) 0.1 Baso # (Auto) 0.0 Abs Immat Gran (auto) 0.04 H Absolute Neuts (auto) 6.4 Absolute Nucleated RBC 0.000 Nucleated RBC % (auto) 0.0 Smear Tech's Comments PT 42.2 H INR 3.5 H O2 Saturation ABG pH at Pt Temp ABG pCO2 at Pt Temp ABG pO2 at Pt Temp ABG HCO3 ABG Base Excess (Actual) VBG pH VBG pCO2 VBG pO2 VBG HCO3 VBG O2 Saturation VBG Base Excess Sodium 132 L Potassium 3.8 Chloride 99 Carbon Dioxide 20 L Anion Gap 17 BUN 15 Creatinine 1.38 Estim Creat Clear Calc 46.9 Estimated GFR 50 Random Glucose 177 H Lactic Acid Calcium 8.8 D Total Bilirubin 0.9 AST 31 ALT 30 Alkaline Phosphatase 75 Troponin I High Sens B-Natriuretic Peptide Total Protein 7.5 Albumin 3.6 Urine Color Urine Appearance Urine pH Ur Specific [place] Urine Protein Urine Glucose (UA) Urine Ketones Urine Blood Urine Nitrite Ur Leukocyte Esterase Urine RBC Urine WBC Ur Squamous Epith Cells Urine Bacteria Hyaline Casts 06/23/23 06/23/23 06/23/23 00:18 00:18 00:18 WBC RBC Hgb Hct MCV MCH MCHC RDW Plt Count MPV Immature Gran % (Auto) Neut % (Auto) Lymph % (Auto) [place] % (Auto) Eos % (Auto) Baso % (Auto) Lymph # (Auto) [place] # (Auto) Eos # (Auto) Baso # (Auto) Abs Immat Gran (auto) Absolute Neuts (auto) Absolute Nucleated RBC Nucleated RBC % (auto) Smear Tech's Comments PT INR O2 Saturation ABG pH at Pt Temp ABG pCO2 at Pt Temp ABG pO2 at Pt Temp ABG HCO3 ABG Base Excess (Actual) VBG pH VBG pCO2 VBG pO2 VBG HCO3 VBG O2 Saturation VBG Base Excess Sodium Potassium Chloride Carbon Dioxide Anion Gap BUN Creatinine Estim Creat Clear Calc Estimated GFR Random Glucose Lactic Acid 1.9 Calcium Total Bilirubin AST ALT Alkaline Phosphatase Troponin I High Sens 15.5 B-Natriuretic Peptide 520 H Total Protein Albumin Urine Color Urine Appearance Urine pH Ur Specific [place] Urine Protein Urine Glucose (UA) Urine Ketones Urine Blood Urine Nitrite Ur Leukocyte Esterase Urine RBC Urine WBC Ur Squamous Epith Cells Urine Bacteria Hyaline Casts 06/23/23 06/23/23 06/23/23 00:24 01:07 01:27 WBC RBC Hgb Hct MCV MCH MCHC RDW Plt Count MPV Immature Gran % (Auto) Neut % (Auto) Lymph % (Auto) [place] % (Auto) Eos % (Auto) Baso % (Auto) Lymph # (Auto) [place] # (Auto) Eos # (Auto) Baso # (Auto) Abs Immat Gran (auto) Absolute Neuts (auto) Absolute Nucleated RBC Nucleated RBC % (auto) Smear Tech's Comments PT INR O2 Saturation 87.0 ABG pH at Pt Temp 7.46 H ABG pCO2 at Pt Temp 33 ABG pO2 at Pt Temp 60 L ABG HCO3 24 ABG Base Excess (Actual) 1.2 VBG pH 7.44 H VBG pCO2 33 VBG pO2 53 VBG HCO3 23 VBG O2 Saturation 80.0 VBG Base Excess -0.4 Sodium Potassium Chloride Carbon Dioxide Anion Gap BUN Creatinine Estim Creat Clear Calc Estimated GFR Random Glucose Lactic Acid Calcium Total Bilirubin AST ALT Alkaline Phosphatase Troponin I High Sens B-Natriuretic Peptide Total Protein Albumin Urine Color Yellow Urine Appearance Clear Urine pH 6.0 Ur Specific [place] <= 1.005 Urine Protein 30 (1+) H Urine Glucose (UA) Negative Urine Ketones Negative Urine Blood Negative Urine Nitrite Negative Ur Leukocyte Esterase Negative Urine RBC 0-2 Urine WBC 0-5 Ur Squamous Epith Cells 0-2 Urine Bacteria None Seen Hyaline Casts 0-2 06/23/23 06/23/23 04:15 04:15 WBC 7.6 RBC 4.32 L Hgb 12.2 L Hct 38.5 L MCV 89.1 MCH 28.2 MCHC 31.7 RDW 17.5 H Plt Count 192 MPV 10.9 Immature Gran % (Auto) 0.3 Neut % (Auto) 93.7 H Lymph % (Auto) 5.1 L [place] % (Auto) 0.8 L Eos % (Auto) 0.0 Baso % (Auto) 0.1 Lymph # (Auto) 0.4 L [place] # (Auto) 0.1 Eos # (Auto) 0.0 Baso # (Auto) 0.0 Abs Immat Gran (auto) 0.02 Absolute Neuts (auto) 7.1 Absolute Nucleated RBC 0.000 Nucleated RBC % (auto) 0.0 Smear Tech's Comments VERIFIED PT INR O2 Saturation ABG pH at Pt Temp ABG pCO2 at Pt Temp ABG pO2 at Pt Temp ABG HCO3 ABG Base Excess (Actual) VBG pH VBG pCO2 VBG pO2 VBG HCO3 VBG O2 Saturation VBG Base Excess Sodium 133 L Potassium 3.5 Chloride 100 Carbon Dioxide 19 L Anion Gap 18 BUN 16 Creatinine 1.35 Estim Creat Clear Calc 48.0 Estimated GFR 51 Random Glucose 246 H Lactic Acid Calcium 9.2 Total Bilirubin 0.9 AST 21 ALT 29 Alkaline Phosphatase 76 Troponin I High Sens B-Natriuretic Peptide Total Protein 7.7 Albumin 3.7 Urine Color Urine Appearance Urine pH Ur Specific [place] Urine Protein Urine Glucose (UA) Urine Ketones Urine Blood Urine Nitrite Ur Leukocyte Esterase Urine RBC Urine WBC Ur Squamous Epith Cells Urine Bacteria Hyaline Casts Imaging Radiologist's impression: Impressions Chest X-Ray 06/22/23 23:55 IMPRESSION: Pulmonary emphysema with lower lobe bronchiectasis and fibrotic change. No consolidation is identified. Assessment and Plan (1) Acute respiratory failure with hypoxia: Status: Acute Acute respiratory failure with hypoxemia related to decompensated congestive in the setting of severe COPD that is oxygen requiring. Patient does have some bronchospasm could be related CHF. Consider bronchodilator therapy. Continue IV Lasix would increase to 40 mg b.i.d.. Strict intake and output chart needs to be pursued. Start Jardiance 10 mg daily. Follow renal function test and electrolytes and replace as needed. Continue oxygen supplementation therapy and says supportive therapy. Given his recurrent heart failure admissions could consider CardioMEMS device as outpatient to reduce recurrence of heart failure. Ischemic workup will be also pursued as outpatient. Will continue to follow with you Time Spent With Patient Time: Total time managing care of this patient today ____ minutes. Procedures Date of Service Date of Service: 06/23/23
--- NOTE | 2023-06-23 12:58 | PC.NURSE ---
called pharmacy, waiting for Jardiance to be brought over
[2023-06-23] MEDS: Empagliflozin 10 MG TABLET PO (13:58)
--- NOTE | 2023-06-23 14:19 | PC.NURSE ---
at 1409 pt HR spiked to 160s, image caught by repairer and checker and forwarded by this senior medical writer to Danelle Hardin as well as Dr. Mensah. pt HR dropped back down to 90s. he had no complaints. no chest pain or shortness of breath.
--- NOTE | 2023-06-23 14:22 | P.PNIM_ITS ---
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 follow up for CHF reporting breathing much better today no chest pain, no cough still with leg edema Review of Systems Review of Systems: Yes all other systems are reviewed and are negative Constitutional Constitutional: Denies chills and Denies fever(s) ENT Ears, Nose, Mouth, and Throat: Denies dizziness Cardiovascular Cardiovascular: Denies chest pain and Denies palpitations Respiratory Respiratory: Denies cough Gastrointestinal Gastrointestinal: Denies abdominal pain Neurologic Neurologic: Denies dizziness Endocrine Endocrine: Denies palpitations Physical Exam Vital Signs: Vital Signs: Last Vital Signs Temp 97.9 F 06/23/23 06:00 Pulse 89 06/23/23 13:57 Resp 25 H 06/23/23 13:57 BP 135/62 06/23/23 13:57 Pulse Ox 92 06/23/23 13:57 O2 Del Method Oxymask 06/23/23 13:57 O2 Flow Rate 6 06/23/23 13:57 BMI result Body Mass Index 26.1 Const: General: comfortable, no acute distress, alert and awake Nutritional Appearance: average body habitus Orientation/consciousness: patient oriented x3 Resp: Other: bibasilar rales Effort & Inspection: able to speak in complete sentences, no respiratory distress and no use of accessory muscles Cardio: Rate: regular rate Heart sounds: S1 normal heart sound present and S2 normal heart sound present GI: Inspection: No distended Palpation (GI): Soft to palpation Neuro: General: patient oriented x3, moves all extremities and CN's II-XI intact bilaterally Extrem: Other: 2+ pitting edema b/l lower extremities Objective Data Active Medications Acetaminophen (Acetaminophen 325 Mg Tablet) 650 mg PO Q6H PRN PRN Reason: Pain, Mild (Pain Scale 1-3) Albuterol Sulfate (Albuterol Sulfate 90 Mcg 8 Gm Inhaler) 2 puff INHALE Q4H PRN PRN Reason: Shortness Of Breath Or Wheezing Aspirin (Aspirin Enteric Coated 81 Mg Tablet.) 81 mg PO DAILY [facility] Last Admin: 06/23/23 10:04 Dose: 81 mg Documented By: JIN Atorvastatin Calcium (Atorvastatin Calcium 40 Mg Tablet) 40 mg PO BEDTIME [facility] Docusate Sodium (Docusate Sodium 100 Mg Capsule) 100 mg PO DAILY PRN PRN Reason: Constipation Empagliflozin (Empagliflozin 10 Mg Tablet) 10 mg PO DAILY [facility] Last Admin: 06/23/23 13:58 Dose: 10 mg Documented By: JIN Fluticasone/Vilanterol (Fluticasone/Vilanterol 200/25 Blst.W.Dev) 1 puff INHALE RDAILY [facility] Last Admin: 06/23/23 09:43 Dose: 1 puff Documented By: MORA Folic Acid (Folic Acid 1 Mg Tablet) 1 mg PO DAILY [facility] Last Admin: 06/23/23 10:04 Dose: 1 mg Documented By: JIN Furosemide (Furosemide 40 Mg/4 Ml Vial) 40 mg IVPUSH BID@0900,1800 [facility]; Protocol Methotrexate (Methotrexate Sodium 2.5 Mg Tablet) 12.5 mg PO [facility] Metoprolol Tartrate (Metoprolol Tartrate 50 Mg Tablet) 50 mg PO BID [facility]; Protocol Last Admin: 06/23/23 10:05 Dose: 50 mg Documented By: JIN Nitroglycerin (Nitroglycerin 0.4 Mg Tab.Subl) 0.4 mg SUBLINGUAL Q5MX3 PRN PRN Reason: Chest Pain Omeprazole (Omeprazole 40 Mg Capsule.Dr) 40 mg PO DAILY@0630 [facility] Ondansetron HCl (Ondansetron Hcl 4 Mg/2 Ml Vial) 4 mg IVPUSH Q8H PRN PRN Reason: Nausea and Vomiting Prednisone (Prednisone 5 Mg Tablet) 7.5 mg PO DAILY [facility] Last Admin: 06/23/23 10:06 Dose: 7.5 mg Documented By: JIN Sodium Chloride (0.9 % Sodium Chloride Flush 3 Ml Syringe) 3 ml IVFLUSH QSHIFT [facility] Last Admin: 06/23/23 10:05 Dose: 3 ml Documented By: JIN Timolol Maleate (Timolol Maleate 0.5 % Oph Kylah 5 Ml Drbtl) 1 drop EYE-BOTH DAILY [facility] Last Admin: 06/23/23 11:38 Dose: Not Given Documented By: JIN Non-Admin Reason: Med Not Available Tramadol HCl (Tramadol Hcl 50 Mg Tablet) 50 mg PO BID PRN PRN Reason: Pain, Moderate Vitamin D (Cholecalciferol (Vitamin D3) 25 Mcg Tablet) 25 mcg PO DAILY [facility] Last Admin: 06/23/23 10:05 Dose: 25 mcg Documented By: JIN Warfarin Sodium (Warfarin Sodium 2.5 Mg Tablet) 2.5 mg PO TRISHA [facility] Last Admin: 06/23/23 07:42 Dose: Not Given Documented By: JIN Non-Admin Reason: hold order Warfarin Sodium (Warfarin Sodium 5 Mg Tablet) 5 mg PO MOFR [facility] Labs 06/23/23 04:15 06/23/23 04:15 Labs: Laboratory Results - last 24 hr 06/23/23 06/23/23 06/23/23 00:18 00:18 00:18 MCV 90.6 MCH 27.9 MCHC 30.8 L RDW 17.8 H Plt Count 209 MPV 10.6 Immature Gran % (Auto) 0.4 Neut % (Auto) 60.8 Lymph % (Auto) 28.3 Dooly % (Auto) 9.1 Eos % (Auto) 1.0 Baso % (Auto) 0.4 Lymph # (Auto) 3.0 Dooly # (Auto) 1.0 Eos # (Auto) 0.1 Baso # (Auto) 0.0 Abs Immat Gran (auto) 0.04 H Absolute Neuts (auto) 6.4 Absolute Nucleated RBC 0.000 Nucleated RBC % (auto) 0.0 Smear Tech's Comments PT 42.2 H INR 3.5 H O2 Saturation ABG pH at Pt Temp ABG pCO2 at Pt Temp ABG pO2 at Pt Temp ABG HCO3 ABG Base Excess (Actual) VBG pH VBG pCO2 VBG pO2 VBG HCO3 VBG O2 Saturation VBG Base Excess Anion Gap 17 Estim Creat Clear Calc 46.9 Estimated GFR 50 Random Glucose 177 H Lactic Acid Calcium 8.8 D Total Bilirubin 0.9 AST 31 ALT 30 Alkaline Phosphatase 75 B-Natriuretic Peptide Total Protein 7.5 Albumin 3.6 Urine Color Urine Appearance Urine pH Ur Specific Sanderson Urine Protein Urine Glucose (UA) Urine Ketones Urine Blood Urine Nitrite Ur Leukocyte Esterase Urine RBC Urine WBC Ur Squamous Epith Cells Urine Bacteria Hyaline Casts 06/23/23 06/23/23 06/23/23 00:18 00:18 00:24 MCV MCH MCHC RDW Plt Count MPV Immature Gran % (Auto) Neut % (Auto) Lymph % (Auto) Dooly % (Auto) Eos % (Auto) Baso % (Auto) Lymph # (Auto) Dooly # (Auto) Eos # (Auto) Baso # (Auto) Abs Immat Gran (auto) Absolute Neuts (auto) Absolute Nucleated RBC Nucleated RBC % (auto) Smear Tech's Comments PT INR O2 Saturation ABG pH at Pt Temp ABG pCO2 at Pt Temp ABG pO2 at Pt Temp ABG HCO3 ABG Base Excess (Actual) VBG pH 7.44 H VBG pCO2 33 VBG pO2 53 VBG HCO3 23 VBG O2 Saturation 80.0 VBG Base Excess -0.4 Anion Gap Estim Creat Clear Calc Estimated GFR Random Glucose Lactic Acid 1.9 Calcium Total Bilirubin AST ALT Alkaline Phosphatase B-Natriuretic Peptide 520 H Total Protein Albumin Urine Color Urine Appearance Urine pH Ur Specific Sanderson Urine Protein Urine Glucose (UA) Urine Ketones Urine Blood Urine Nitrite Ur Leukocyte Esterase Urine RBC Urine WBC Ur Squamous Epith Cells Urine Bacteria Hyaline Casts 06/23/23 06/23/23 06/23/23 01:07 01:27 04:15 MCV 89.1 MCH 28.2 MCHC 31.7 RDW 17.5 H Plt Count 192 MPV 10.9 Immature Gran % (Auto) 0.3 Neut % (Auto) 93.7 H Lymph % (Auto) 5.1 L Dooly % (Auto) 0.8 L Eos % (Auto) 0.0 Baso % (Auto) 0.1 Lymph # (Auto) 0.4 L Dooly # (Auto) 0.1 Eos # (Auto) 0.0 Baso # (Auto) 0.0 Abs Immat Gran (auto) 0.02 Absolute Neuts (auto) 7.1 Absolute Nucleated RBC 0.000 Nucleated RBC % (auto) 0.0 Smear Tech's Comments VERIFIED PT INR O2 Saturation 87.0 ABG pH at Pt Temp 7.46 H ABG pCO2 at Pt Temp 33 ABG pO2 at Pt Temp 60 L ABG HCO3 24 ABG Base Excess (Actual) 1.2 VBG pH VBG pCO2 VBG pO2 VBG HCO3 VBG O2 Saturation VBG Base Excess Anion Gap Estim Creat Clear Calc Estimated GFR Random Glucose Lactic Acid Calcium Total Bilirubin AST ALT Alkaline Phosphatase B-Natriuretic Peptide Total Protein Albumin Urine Color Yellow Urine Appearance Clear Urine pH 6.0 Ur Specific Sanderson <= 1.005 Urine Protein 30 (1+) H Urine Glucose (UA) Negative Urine Ketones Negative Urine Blood Negative Urine Nitrite Negative Ur Leukocyte Esterase Negative Urine RBC 0-2 Urine WBC 0-5 Ur Squamous Epith Cells 0-2 Urine Bacteria None Seen Hyaline Casts 0-2 06/23/23 04:15 MCV MCH MCHC RDW Plt Count MPV Immature Gran % (Auto) Neut % (Auto) Lymph % (Auto) Dooly % (Auto) Eos % (Auto) Baso % (Auto) Lymph # (Auto) Dooly # (Auto) Eos # (Auto) Baso # (Auto) Abs Immat Gran (auto) Absolute Neuts (auto) Absolute Nucleated RBC Nucleated RBC % (auto) Smear Tech's Comments PT INR O2 Saturation ABG pH at Pt Temp ABG pCO2 at Pt Temp ABG pO2 at Pt Temp ABG HCO3 ABG Base Excess (Actual) VBG pH VBG pCO2 VBG pO2 VBG HCO3 VBG O2 Saturation VBG Base Excess Anion Gap 18 Estim Creat Clear Calc 48.0 Estimated GFR 51 Random Glucose 246 H Lactic Acid Calcium 9.2 Total Bilirubin 0.9 AST 21 ALT 29 Alkaline Phosphatase 76 B-Natriuretic Peptide Total Protein 7.7 Albumin 3.7 Urine Color Urine Appearance Urine pH Ur Specific Sanderson Urine Protein Urine Glucose (UA) Urine Ketones Urine Blood Urine Nitrite Ur Leukocyte Esterase Urine RBC Urine WBC Ur Squamous Epith Cells Urine Bacteria Hyaline Casts Assessment and Plan (1) Acute respiratory failure with hypoxia: Status: Acute (2) (HFpEF) heart failure with preserved ejection fraction: Status: Acute Plan 77-year-old male with past medical history of HFpEF, ashmta/COPD, HTN, comes into the hospital with complaints of shortness of breath for to have acute respiratory failure secondary to CHF acute on chronic hypoxic respiratory failure secondary to CHF on a background of asthma/COPD overlap and pulmonary fibrosis/ILD reportedly on 4L supplemental oxygen at baseline, currently on 6L seen by cardiology, will increase dose of lasix to 40 bid echo from March, no need to repeat follow Is&Os start jardiance per cardiology rec Paroxysmal atrial fibrillation INR 3.5, hold coumadin today follow INR daily continue metoprolol HTN continue metoprolol hold losartan, norvasc while being diuresed resume as bp allows asthma/COPD/ILD recently started on prednisone 7.5 mg daily on nintedanib - NF - will hold continue home inhalers RA continue methotrexate DVT prophylaxis: Lovenox attending - dr. parada Requires ongoing inpatient hospital stay for further management of respiratory failure/CHF Time Spent With Patient Time: Total time managing care of this patient today ____ minutes. Quality Stroke Does the patient have a stroke diagnosis?: No VTE Prior VTE?: No VTE Risk Level:: Medical - moderate - high VTE Device Contraindication: Treatment Not Indicated VTE Drug Contraindication: N/A - Med Ordered
[2023-06-23 17:04] LABS: Magnesium 1.2 mg/dL (1.6-2.6)
[2023-06-23] MEDS: Magnesium Sulfate/H2O 2 GM/50 ML PIGGYBACK IV (17:25)
[2023-06-23] MEDS: Magnesium Oxide 400 MG TABLET PO (17:25)
--- NOTE | 2023-06-23 18:31 | PC.NURSE ---
CONNIE Hardin made aware of Pt HR of 172 at approximately 1827, tele strip appears to be rapid afib. Pt asymptomatic at this time resting comfortably in bed no distress noted. Pt currently receiving IV mag.
[2023-06-23] MEDS: Atorvastatin Calcium 40 MG TABLET PO (19:39)
--- NOTE | 2023-06-23 20:00 | PC.NURSE ---
At approx 1999- tele showing HR 160-180s. Immediately assessed pt, A&Ox4, denies SOB/CP/dizziness or any other S/S. EKG obtained. MD Beasley notified. New order for Lopressor 5 mg IVP given with good effect, HR down to 60s, remains in afib. BP WNL. Pt aware of plan of care/status. Call whitt in reach, bed locked in lowest position.
[2023-06-23] MEDS: Metoprolol Tartrate 5 MG/5 ML VIAL IVPUSH (21:44)
[2023-06-24] VITALS (7 sets, daily range): BP systolic 126–156; BP diastolic 58–73; PULSE 64–95; RESP 18–20; TEMP 36.1–36.7; O2SAT 72–96
[2023-06-24] MEDS: Omeprazole 40 MG CAPSULE.DR PO (05:23)
[2023-06-24] MEDS: Fluticasone/Vilanterol 200/25 BLST.W.DEV 1 PUFF INHALE (08:16)
[2023-06-24] MEDS: Metoprolol Tartrate 50 MG TABLET PO ×2 (08:38→20:17)
[2023-06-24] MEDS: Magnesium Oxide 400 MG TABLET PO ×2 (08:38→17:58)
[2023-06-24] MEDS: Aspirin Enteric Coated 81 MG TABLET.DR PO (08:38)
[2023-06-24] MEDS: Cholecalciferol (Vitamin D3) 25 MCG TABLET PO (08:38)
[2023-06-24] MEDS: predniSONE 5 MG TABLET 7.5 MG PO (08:38)
[2023-06-24] MEDS: Empagliflozin 10 MG TABLET PO (08:38)
[2023-06-24] MEDS: Folic Acid 1 MG TABLET PO (08:38)
[2023-06-24] MEDS: Furosemide 40 MG/4 ML VIAL IVPUSH ×2 (08:38→17:58)
[2023-06-24] MEDS: 0.9 % Sodium Chloride Flush 3 ML SYRINGE IVFLUSH ×3 (08:42→20:18)
[2023-06-24 08:46] LABS: Anion Gap 16 (12-20); Blood Urea Nitrogen 27 mg/dL (9-16); Calcium 9.6 mg/dL (8.4-10.2); Carbon Dioxide 24 mmol/L (22-29); Chloride 102 mmol/L (96-108); Estimated Glomerular Filt Rate 55; Glucose Random 132 mg/dL (60-115); Potassium 4.1 mmol/L (3.3-5.1); Sodium 138 mmol/L (135-145)
[2023-06-24 08:56] LABS: INTERNATIONAL NORM RATIO 2.3 (0.9-1.1); Prothrombin Time 27.9 SEC (11.1-13.3)
[2023-06-24 09:18] LABS: B Type Natriuretic Peptide 623 pg/mL (<100)
--- NOTE | 2023-06-24 09:45 | PM.PNCARD ---
Subjective Subjective Date of Service: 06/24/23 Principal diagnosis: CHF, SVT Interval history: Patient overnight having rapid heart rate consistent with SVT with rapid ventricular response. Patient says his breathing is much better. He has been diuresing well. His leg edema is completely improved. Review of Systems Constitutional: Reports no additional constitutional complaints Cardiovascular: Denies rapid heart rate, Denies leg edema, Denies lightheadedness, Denies Loss of Consciousness, Denies palpitations and Reports dyspnea on exertion Respiratory: Reports no additional respiratory complaints and Reports dyspnea on exertion Musculoskeletal: Reports no additional musculoskeletal complaints Skin/Breast: Reports system reviewed and no additional complaints, except as docu Psychiatric: Reports no additional psychiatric complaints Endocrine: Reports no additional endocrine complaints and Denies palpitations Hematologic/Lymphatic: Reports no additional hematologic/lymphatic complaints Physical Exam Vital Signs: Last Vital Signs Temp 97.0 F 06/24/23 08:00 Pulse 95 06/24/23 08:18 Resp 18 06/24/23 08:18 BP 156/73 H 06/24/23 08:00 Pulse Ox 89 L 06/24/23 08:00 O2 Del Method Nasal Cannula 06/24/23 08:00 O2 Flow Rate 8 06/24/23 08:00 BMI result Body Mass Index 26.1 Const General: cooperative, alert, awake and in distress mild and respiratory Nutritional Appearance: average body habitus Orientation/consciousness: patient oriented x3 Limitations: no limitations HEENT Head: Yes normocephalic and Yes atraumatic Neck Neck: Yes trachea midline, Yes supple and Yes JVD Resp Effort & Inspection: normal respiratory effort Auscultation: crackles bilateral at the base and wheezes scattered wheezes Cardio Jugular venous distension: JVD Palpation: normal PMI Rate: regular rate Rhythm: regular rhythm Heart sounds: S1 normal heart sound present, S2 normal heart sound present, no click, no gallops, no murmurs and no rubs GI Auscultation: normal bowel sounds Skin General skin exam: no rashes or lesions noted Neuro General: patient oriented x3 and no focal motor deficits Extrem General: No clubbing, No cyanosis and Yes edema Objective Labs and Meds 06/23/23 04:15 06/24/23 07:56 Lab results: Laboratory Results - last 24 hr 06/23/23 06/23/23 06/24/23 04:15 20:56 07:56 PT 27.9 H D INR 2.3 H Sodium Potassium Chloride Carbon Dioxide Anion Gap BUN Creatinine Estim Creat Clear Calc Estimated GFR Random Glucose Calcium Magnesium 1.2 L* 2.0 B-Natriuretic Peptide 06/24/23 06/24/23 07:56 07:56 PT INR Sodium 138 Potassium 4.1 Chloride 102 Carbon Dioxide 24 Anion Gap 16 BUN 27 H Creatinine 1.27 Estim Creat Clear Calc 51.0 Estimated GFR 55 Random Glucose 132 H Calcium 9.6 Magnesium 2.0 B-Natriuretic Peptide 623 H Progress Note: A&P Assessment and plan (1) CHF exacerbation: Status: Acute Assessment and Plan: Patient with acute hypoxic respiratory failure secondary CHF exacerbation probably COPD exacerbation. Switch bronchodilator therapy to Xopenex given his cardiac arrhythmias. Continue IV diuresis for 1 more day. Continue to trend BMP and BNP tomorrow. Replace electrolytes as needed. Renal function is improved. As outpatient will need to plan for CardioMEMS. (2) SVT (supraventricular tachycardia): Status: Acute Assessment and Plan: SVT recurrent. Continue metoprolol therapy. Switch to Xopenex therapy. This does not appear to be atrial fibrillation. If continues to have SVT episode would add Cardizem therapy to his regimen. Avoidance of other stimulants was discussed. Will continue to follow with you Time Spent With Patient Time: Total time managing care of this patient today ____ minutes. Progress Note: Quality Stroke Does the patient have a stroke diagnosis?: No Procedures Date of Service Date of Service: 06/24/23
--- NOTE | 2023-06-24 11:59 | MHC.CM.PN ---
IMM 06/24. 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 Pt admitted with dx: CHF exacerbation, hypoxia. 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 D/C plan to return home with resumption of [employer]ING [employer]PER[employer] services when medically cleared. Pts family to transport. HCP on file and verified. If pt needs VNA services they stated they would prefer [facility]. PCP: Moris Dorado vax: x 4
--- NOTE | 2023-06-24 15:00 | HO.PM.IMPN ---
Subjective Subjective Date of Service: 06/24/23 Interval History: seen and examined this morning follow up for CHF Reports feeling better, improvement in lower extremity edema Review of Systems Review of Systems: Yes all other systems are reviewed and are negative Constitutional Constitutional: Denies chills and Denies fever(s) ENT Ears, Nose, Mouth, and Throat: Denies dizziness Cardiovascular Cardiovascular: Denies chest pain and Denies palpitations Respiratory Respiratory: Denies cough Gastrointestinal Gastrointestinal: Denies abdominal pain Neurologic Neurologic: Denies dizziness Endocrine Endocrine: Denies palpitations Physical Exam Vital Signs: Vital Signs: Last Vital Signs Temp 97.0 F 06/24/23 11:22 Pulse 64 06/24/23 11:22 Resp 19 06/24/23 11:22 BP 126/58 L 06/24/23 11:22 Pulse Ox 92 06/24/23 11:22 O2 Del Method Nasal Cannula 06/24/23 11:22 O2 Flow Rate 6 06/24/23 11:22 BMI result Body Mass Index 26.1 Const: General: comfortable, no acute distress, alert and awake Nutritional Appearance: average body habitus Orientation/consciousness: patient oriented x3 Resp: Other: bibasilar rales, scattered wheezes Effort & Inspection: able to speak in complete sentences, no respiratory distress and no use of accessory muscles Cardio: Rate: regular rate Heart sounds: S1 normal heart sound present and S2 normal heart sound present GI: Inspection: No distended Palpation (GI): Soft to palpation Neuro: General: patient oriented x3, moves all extremities and CN's II-XI intact bilaterally Extrem: Other: trace -1+b/l edema - significantly improved Objective Data Active Medications Acetaminophen (Acetaminophen 325 Mg Tablet) 650 mg PO Q6H PRN PRN Reason: Pain, Mild (Pain Scale 1-3) Aspirin (Aspirin Enteric Coated 81 Mg Tablet.) 81 mg PO DAILY [facility] Last Admin: 06/24/23 08:38 Dose: 81 mg Documented By: SEAMUS Atorvastatin Calcium (Atorvastatin Calcium 40 Mg Tablet) 40 mg PO BEDTIME [facility] Last Admin: 06/23/23 19:39 Dose: 40 mg Documented By: PIEDAD Docusate Sodium (Docusate Sodium 100 Mg Capsule) 100 mg PO DAILY PRN PRN Reason: Constipation Empagliflozin (Empagliflozin 10 Mg Tablet) 10 mg PO DAILY [facility] Last Admin: 06/24/23 08:38 Dose: 10 mg Documented By: SEAUMS Fluticasone/Vilanterol (Fluticasone/Vilanterol 200/25 Blst.W.Dev) 1 puff INHALE RDAILY [facility] Last Admin: 06/24/23 08:16 Dose: 1 puff Documented By: MARYBETH Folic Acid (Folic Acid 1 Mg Tablet) 1 mg PO DAILY [facility] Last Admin: 06/24/23 08:38 Dose: 1 mg Documented By: SEAMUS Furosemide (Furosemide 40 Mg/4 Ml Vial) 40 mg IVPUSH BID@0900,1800 [facility]; Protocol Last Admin: 06/24/23 08:38 Dose: 40 mg Documented By: SEAMUS Magnesium Oxide (Magnesium Oxide 400 Mg Tablet) 400 mg PO BIDPC [facility] Last Admin: 06/24/23 08:38 Dose: 400 mg Documented By: SEAMUS Methotrexate (Methotrexate Sodium 2.5 Mg Tablet) 12.[address] [facility] Metoprolol Tartrate (Metoprolol Tartrate 50 Mg Tablet) 50 mg PO BID [facility]; Protocol Last Admin: 06/24/23 08:38 Dose: 50 mg Documented By: SEAMUS Nitroglycerin (Nitroglycerin 0.4 Mg Tab.Subl) 0.4 mg SUBLINGUAL Q5MX3 PRN PRN Reason: Chest Pain Omeprazole (Omeprazole 40 Mg Capsule.Dr) 40 mg PO DAILY@0630 [facility] Last Admin: 06/24/23 05:23 Dose: 40 mg Documented By: IFEANYI Ondansetron HCl (Ondansetron Hcl 4 Mg/2 Ml Vial) 4 mg IVPUSH Q8H PRN PRN Reason: Nausea and Vomiting Prednisone (Prednisone 5 Mg Tablet) 7.5 mg PO DAILY [facility] Last Admin: 06/24/23 08:38 Dose: 7.5 mg Documented By: SEAMUS Sodium Chloride (0.9 % Sodium Chloride Flush 3 Ml Syringe) 3 ml IVFLUSH QSHIFT [facility] Last Admin: 06/24/23 08:42 Dose: 3 ml Documented By: SEAMUS Timolol Maleate (Timolol Maleate 0.5 % Oph Kylah 5 Ml Drbtl) 1 drop EYE-BOTH DAILY [facility] Last Admin: 06/24/23 12:16 Dose: Not Given Documented By: SEAMUS Non-Admin Reason: Med Not Available Comments: pharmacy contacted Tramadol HCl (Tramadol Hcl 50 Mg Tablet) 50 mg PO BID PRN PRN Reason: Pain, Moderate Vitamin D (Cholecalciferol (Vitamin D3) 25 Mcg Tablet) 25 mcg PO DAILY [facility] Last Admin: 06/24/23 08:38 Dose: 25 mcg Documented By: SEAMUS Warfarin Sodium (Warfarin Sodium 5 Mg Tablet) 5 mg PO MoFr@1800 [facility] Warfarin Sodium (Warfarin Sodium 2.5 Mg Tablet) 2.5 mg PO SuTuWeThSa@1800 [facility] Labs 06/23/23 04:15 06/24/23 07:56 Labs: Laboratory Results - last 24 hr 06/23/23 06/23/23 06/24/23 04:15 20:56 07:56 PT 27.9 H D INR 2.3 H Anion Gap Estim Creat Clear Calc Estimated GFR Random Glucose Calcium Magnesium 1.2 L* 2.0 B-Natriuretic Peptide 06/24/23 06/24/23 07:56 07:56 PT INR Anion Gap 16 Estim Creat Clear Calc 51.0 Estimated GFR 55 Random Glucose 132 H Calcium 9.6 Magnesium 2.0 B-Natriuretic Peptide 623 H Microbiology Microbiology Results: Microbiology 06/23/23 01:05 Blood Culture - Preliminary Blood - Venous No growth after 24 hours. 06/23/23 01:04 Blood Culture - Preliminary Blood - Venous No growth after 24 hours. Assessment and Plan (1) SVT (supraventricular tachycardia): Status: Acute (2) Acute respiratory failure with hypoxia: Status: Acute (3) CHF exacerbation: Status: Acute Plan 77-year-old male with past medical history of HFpEF, ashmta/COPD, HTN, comes into the hospital with complaints of shortness of breath for to have acute respiratory failure secondary to CHF acute on chronic hypoxic respiratory failure secondary to acute on chronic HFpEF on a background of asthma/COPD overlap and pulmonary fibrosis/ILD moderate pulm HTN reportedly on 4L supplemental oxygen at baseline, currently on 6L seen by cardiology, continue lasix to 40 bid echo from March, no need to repeat Is&Os not documented started on jardiance per cardiology rec consider cardiomems outpatient Paroxysmal atrial fibrillation INR 2.3 continue coumadin follow INR daily continue metoprolol hypomagnesemia improved with replacement SVT multiple brief episodes of SVT yesterday afternoon/evening received lopressor x1 last night magnesium corrected no further episodes today thus far continue BB monitor closely on telemetry HTN continue metoprolol continue losartan hold norvasc while being diuresed resume as bp allows asthma/COPD/ILD recently started on prednisone 7.5 mg daily on nintedanib - NF - will hold continue home inhalers RA continue methotrexate DVT prophylaxis: Lovenox attending - dr. parada Requires ongoing inpatient hospital stay for further management of respiratory failure/CHF Time Spent With Patient Time: Total time managing care of this patient today ____ minutes. Quality Stroke Does the patient have a stroke diagnosis?: No VTE Prior VTE?: No VTE Risk Level:: Medical - moderate - high VTE Device Contraindication: Treatment Not Indicated VTE Drug Contraindication: N/A - Med Ordered
--- NOTE | 2023-06-24 15:06 | P.CDIM_ITS ---
PROVIDER RESPONSE TEXT: To clarify, the appropriate diagnosis supported by the clinical indicators: Hypomagnesemia QUERY TEXT: PHYSICIAN'S DOCUMENTATION REQUEST Date of Query: 06/24/2023 10:03 AM EDT Patient Name: Tommy Love Admit Date: 06/23/2023 Dear Danelle Hardin, A review of the medical record indicates additional documentation may be needed. Please review below and update the documentation accordingly. Clinical Indicators: LAB FINDINGS: magnesium 1.2 L IV magnesium sulfate Based on the above, is there a diagnosis that correlates with these lab findings: Hypomagnesemia Labs indicate a diagnosis of (please specify) Other Other (explain)Clinically unable to determine (explain)Thank you, Verónica Oconnor, CCS, CDIS Use of terms such as suspected, likely, concern for, or probable (associated with a specific diagnosi s that is being evaluated, monitored, or treated as if it exists) are acceptable and can be coded in the inpatient se tting, when documented at the time of discharge. Please use your independent medical judgment in providing your response. THIS QUERY IS PART OF THE PERMANENT MEDICAL RECORD
[2023-06-24] MEDS: Warfarin Sodium 5 MG TABLET PO (17:58)
[2023-06-24] MEDS: Atorvastatin Calcium 40 MG TABLET PO (20:17)
[2023-06-25] VITALS (8 sets, daily range): BP systolic 119–147; BP diastolic 60–81; PULSE 73–93; RESP 12–22; TEMP 36.1–37.4; O2SAT 90–98
[2023-06-25] MEDS: Omeprazole 40 MG CAPSULE.DR PO (06:04)
[2023-06-25 07:40] LABS: Anion Gap 18 (12-20); Blood Urea Nitrogen 30 mg/dL (9-16); Carbon Dioxide 26 mmol/L (22-29); Chloride 100 mmol/L (96-108); Creatinine Clr Calc Pharmacy 51.8; Estimated Glomerular Filt Rate 56; Glucose Random 121 mg/dL (60-115); Potassium 3.3 mmol/L (3.3-5.1); Sodium 141 mmol/L (135-145)
[2023-06-25 07:46] LABS: B Type Natriuretic Peptide 252 pg/mL (<100)
[2023-06-25] MEDS: Fluticasone/Vilanterol 200/25 BLST.W.DEV 1 PUFF INHALE (08:05)
[2023-06-25] MEDS: Magnesium Oxide 400 MG TABLET PO ×2 (09:55→17:35)
[2023-06-25] MEDS: Empagliflozin 10 MG TABLET PO (09:55)
[2023-06-25] MEDS: Aspirin Enteric Coated 81 MG TABLET.DR PO (09:55)
[2023-06-25] MEDS: predniSONE 5 MG TABLET 7.5 MG PO (09:55)
[2023-06-25] MEDS: Folic Acid 1 MG TABLET PO (09:55)
[2023-06-25] MEDS: Cholecalciferol (Vitamin D3) 25 MCG TABLET PO (09:55)
[2023-06-25] MEDS: Metoprolol Tartrate 50 MG TABLET PO ×2 (09:55→20:23)
[2023-06-25] MEDS: Furosemide 40 MG/4 ML VIAL IVPUSH (09:56)
[2023-06-25] MEDS: 0.9 % Sodium Chloride Flush 3 ML SYRINGE IVFLUSH ×3 (09:56→20:23)
[2023-06-25] MEDS: Losartan Potassium 50 MG TABLET PO (09:56)
[2023-06-25] MEDS: timoloL maleate 0.5 % Oph Sol 5 ML DRBTL 1 DROP EYE-BOTH (10:02)
[2023-06-25 10:52] LABS: INTERNATIONAL NORM RATIO 2.5 (0.9-1.1)
--- NOTE | 2023-06-25 14:14 | MHC.CM.PN ---
MD indicates PT has recommended inpatient pulmonary rehab for Pt. This CM reached out to Pt's to discuss. Family all in the room. Family designated the nephew Mariela to speak with CM. Mariela understands D/C recommendation and explained process and requested time to speak with his family. This CM will belkofski back around with Mariela and family. In the event it is needed, Mariela's direct number: [phone]. CM to follow.
--- NOTE | 2023-06-25 14:44 | PM.PNCARD ---
Subjective Subjective Date of Service: 06/25/23 Principal diagnosis: CHF, SVT Interval history: Patient breathing better and says that he is feeling back to his baseline although requiring high level of oxygen. Patient has not had significant runs of SVT. Has diuresed well with a negative balance totally of About 3 L. His leg edema is improved. Review of Systems Constitutional: Reports no additional constitutional complaints Physical Exam Vital Signs: Last Vital Signs Temp 97.0 F 06/25/23 11:42 Pulse 89 06/25/23 12:03 Resp 20 06/25/23 11:42 BP 142/81 H 06/25/23 12:03 Pulse Ox 93 06/25/23 12:03 O2 Del Method Nasal Cannula 06/25/23 11:42 O2 Flow Rate 6 06/25/23 11:42 BMI result Body Mass Index 26.1 Const General: cooperative, alert, awake and in distress mild and respiratory Nutritional Appearance: average body habitus Orientation/consciousness: patient oriented x3 Limitations: no limitations HEENT Head: Yes normocephalic and Yes atraumatic Neck Neck: Yes trachea midline, Yes supple and Yes no JVD Resp Effort & Inspection: normal respiratory effort Auscultation: crackles (coarse) and wheezes scattered wheezes Cardio Jugular venous distension: no JVD Palpation: normal PMI Rate: regular rate Rhythm: regular rhythm Heart sounds: S1 normal heart sound present, S2 normal heart sound present, no click, no gallops, no murmurs and no rubs GI Auscultation: normal bowel sounds Skin General skin exam: no rashes or lesions noted Neuro General: patient oriented x3 and no focal motor deficits Extrem General: No clubbing, No cyanosis and Yes edema Objective Labs and Meds 06/23/23 04:15 06/25/23 06:59 Lab results: Laboratory Results - last 24 hr 06/25/23 06/25/23 06/25/23 06:59 06:59 10:11 PT 30.0 H INR 2.5 H Sodium 141 Potassium 3.3 Chloride 100 Carbon Dioxide 26 Anion Gap 18 BUN 30 H Creatinine 1.25 Estim Creat Clear Calc 51.8 Estimated GFR 56 Random Glucose 121 H Calcium 10.0 B-Natriuretic Peptide 252 H Progress Note: A&P Assessment and plan (1) CHF exacerbation: Status: Acute Assessment and Plan: Patient presents with recurrent heart failure with acute hypoxemic respiratory failure. He still requires high level of oxygen. This is being evaluated by hospitalist team. Continue management of COPD. Switch to pulmonary specific bronchodilators. Clinically appears to be which more euvolemic with much improved symptoms. Continue current therapy with Jardiance 10 mg and agree with increasing Lasix to 40 mg daily. Heart failure management was discussed in details. Will set up for outpatient follow-up. Patient, will benefit from CardioMEMS device to avoid recurrent hospitalization. (2) SVT (supraventricular tachycardia): Status: Acute Assessment and Plan: SVT most likely related to pulmonary exacerbation as well as he has a bronchodilators. Switch to pulmonary specific bronchodilators. Will follow with outpatient Holter monitor. Continue current metoprolol therapy. Avoidance of other stimulants was discussed. Will follow up with him as an outpatient. Thank you for allowing me to partake in his care Time Spent With Patient Time: Total time managing care of this patient today ____ minutes. Progress Note: Quality Stroke Does the patient have a stroke diagnosis?: No Procedures Date of Service Date of Service: 06/25/23
--- NOTE | 2023-06-25 15:01 | HO.PM.IMPN ---
Subjective Subjective Date of Service: 06/25/23 Interval History: seen and examined this morning follow up for CHF leg edema and dyspnea improved but has not been ambulating Review of Systems Review of Systems: Yes all other systems are reviewed and are negative Constitutional Constitutional: Denies chills and Denies fever(s) ENT Ears, Nose, Mouth, and Throat: Denies dizziness Cardiovascular Cardiovascular: Denies chest pain, Denies palpitations and Denies dyspnea Respiratory Respiratory: Denies cough and Denies dyspnea Gastrointestinal Gastrointestinal: Denies abdominal pain Neurologic Neurologic: Denies dizziness Endocrine Endocrine: Denies palpitations Physical Exam Vital Signs: Vital Signs: Last Vital Signs Temp 97.0 F 06/25/23 11:42 Pulse 89 06/25/23 12:03 Resp 20 06/25/23 11:42 BP 142/81 H 06/25/23 12:03 Pulse Ox 93 06/25/23 12:03 O2 Del Method Nasal Cannula 06/25/23 11:42 O2 Flow Rate 6 06/25/23 11:42 BMI result Body Mass Index 26.1 Const: General: comfortable, no acute distress, alert and awake Nutritional Appearance: average body habitus Orientation/consciousness: patient oriented x3 Resp: Other: no rales Effort & Inspection: able to speak in complete sentences, no respiratory distress and no use of accessory muscles Cardio: Rate: regular rate Heart sounds: S1 normal heart sound present and S2 normal heart sound present GI: Inspection: No distended Palpation (GI): Soft to palpation and nontender Neuro: General: patient oriented x3, moves all extremities and CN's II-XI intact bilaterally Extrem: General: Yes no pedal edema Objective Data Active Medications Acetaminophen (Acetaminophen 325 Mg Tablet) 650 mg PO Q6H PRN PRN Reason: Pain, Mild (Pain Scale 1-3) Aspirin (Aspirin Enteric Coated 81 Mg Tablet.) 81 mg PO DAILY [facility] Last Admin: 06/25/23 09:55 Dose: 81 mg Documented By: MARIAELENA Atorvastatin Calcium (Atorvastatin Calcium 40 Mg Tablet) 40 mg PO BEDTIME [facility] Last Admin: 06/24/23 20:17 Dose: 40 mg Documented By: DORIS Docusate Sodium (Docusate Sodium 100 Mg Capsule) 100 mg PO DAILY PRN PRN Reason: Constipation Empagliflozin (Empagliflozin 10 Mg Tablet) 10 mg PO DAILY [facility] Last Admin: 06/25/23 09:55 Dose: 10 mg Documented By: MARIAELENA Fluticasone/Vilanterol (Fluticasone/Vilanterol 200/25 Blst.W.Dev) 1 puff INHALE RDAILY [facility] Last Admin: 06/25/23 08:05 Dose: 1 puff Documented By: PABLITO Folic Acid (Folic Acid 1 Mg Tablet) 1 mg PO DAILY [facility] Last Admin: 06/25/23 09:55 Dose: 1 mg Documented By: MARIAELENA Furosemide (Furosemide 40 Mg/4 Ml Vial) 40 mg IVPUSH BID@0900,1800 [facility]; Protocol Last Admin: 06/25/23 09:56 Dose: 40 mg Documented By: MARIAELENA Levalbuterol HCl (Levalbuterol Hcl 1.25 Mg/3 Ml Vial.Neb) 1.25 mg INHALE Q4H PRN PRN Reason: shortness of breath Losartan Potassium (Losartan Potassium 50 Mg Tablet) 50 mg PO DAILY [facility]; Protocol Last Admin: 06/25/23 09:56 Dose: 50 mg Documented By: MARIAELENA Magnesium Oxide (Magnesium Oxide 400 Mg Tablet) 400 mg PO BIDPC [facility] Last Admin: 06/25/23 09:55 Dose: 400 mg Documented By: MARIAELENA Methotrexate (Methotrexate Sodium 2.5 Mg Tablet) 12.5 mg PO [facility] Metoprolol Tartrate (Metoprolol Tartrate 50 Mg Tablet) 50 mg PO BID [facility]; Protocol Last Admin: 06/25/23 09:55 Dose: 50 mg Documented By: MARIAELENA Nitroglycerin (Nitroglycerin 0.4 Mg Tab.Subl) 0.4 mg SUBLINGUAL Q5MX3 PRN PRN Reason: Chest Pain Omeprazole (Omeprazole 40 Mg Capsule.Dr) 40 mg PO DAILY@0630 [facility] Last Admin: 06/25/23 06:04 Dose: 40 mg Documented By: DORIS Ondansetron HCl (Ondansetron Hcl 4 Mg/2 Ml Vial) 4 mg IVPUSH Q8H PRN PRN Reason: Nausea and Vomiting Prednisone (Prednisone 5 Mg Tablet) 7.5 mg PO DAILY [facility] Last Admin: 06/25/23 09:55 Dose: 7.5 mg Documented By: MARIAELENA Sodium Chloride (0.9 % Sodium Chloride Flush 3 Ml Syringe) 3 ml IVFLUSH QSHIFT [facility] Last Admin: 06/25/23 09:56 Dose: 3 ml Documented By: MARIAELENA Timolol Maleate (Timolol Maleate 0.5 % Oph Kylah 5 Ml Drbtl) 1 drop EYE-BOTH DAILY [facility] Last Admin: 06/25/23 10:02 Dose: 1 drop Documented By: MARIAELENA Tramadol HCl (Tramadol Hcl 50 Mg Tablet) 50 mg PO BID PRN PRN Reason: Pain, Moderate Vitamin D (Cholecalciferol (Vitamin D3) 25 Mcg Tablet) 25 mcg PO DAILY [facility] Last Admin: 06/25/23 09:55 Dose: 25 mcg Documented By: MARIAELENA Warfarin Sodium (Warfarin Sodium 5 Mg Tablet) 5 mg PO MoFr@1800 [facility] Last Admin: 06/24/23 17:58 Dose: 5 mg Documented By: SEAMUS Warfarin Sodium (Warfarin Sodium 2.5 Mg Tablet) 2.5 mg PO SuTuWeThSa@1800 [facility] Labs 06/23/23 04:15 06/25/23 06:59 Labs: Laboratory Results - last 24 hr 06/25/23 06/25/23 06/25/23 06:59 06:59 10:11 PT 30.0 H INR 2.5 H Anion Gap 18 Estim Creat Clear Calc 51.8 Estimated GFR 56 Random Glucose 121 H Calcium 10.0 B-Natriuretic Peptide 252 H Microbiology Microbiology Results: Microbiology 06/23/23 01:05 Blood Culture - Preliminary Blood - Venous No growth after 48 hours. 06/23/23 01:04 Blood Culture - Preliminary Blood - Venous No growth after 48 hours. Assessment and Plan (1) SVT (supraventricular tachycardia): Status: Acute (2) Acute respiratory failure with hypoxia: Status: Acute (3) CHF exacerbation: Status: Acute Plan 77-year-old male with past medical history of HFpEF, ashmta/COPD, HTN, comes into the hospital with complaints of shortness of breath for to have acute respiratory failure secondary to CHF acute on chronic hypoxic respiratory failure secondary to acute on chronic HFpEF on a background of asthma/COPD overlap and pulmonary fibrosis/ILD moderate pulm HTN on 4L supplemental oxygen at baseline, currently on 5L. feeling much better but desaturated during PT evaluation will transition to lasix po 40 daily echo from March, no need to repeat started on jardiance per cardiology rec consider cardiomems outpatient Paroxysmal atrial fibrillation INR 2.5 continue coumadin follow INR daily continue metoprolol hypomagnesemia improved with replacement SVT multiple brief episodes of SVT yesterday afternoon/evening received lopressor x1 last night magnesium corrected no further episodes today thus far continue BB monitor closely on telemetry HTN continue metoprolol continue losartan hold norvasc while being diuresed - resume as bp allows asthma/COPD/ILD recently started on prednisone 7.5 mg daily on nintedanib - NF - will hold continue home inhalers RA continue methotrexate DVT prophylaxis: Aly attending - dr. spangler Requires ongoing inpatient hospital stay for further management of respiratory failure/CHF - seen by PT -rec pulmonary rehab/STR Time Spent With Patient Time: Total time managing care of this patient today ____ minutes. Quality Stroke Does the patient have a stroke diagnosis?: No VTE Prior VTE?: No VTE Risk Level:: Medical - moderate - high VTE Device Contraindication: Treatment Not Indicated VTE Drug Contraindication: N/A - Med Ordered
--- NOTE | 2023-06-25 15:02 | MHC.CM.PN ---
Spoke with Mariela; permission granted to send referral to [facility] [place] and [facility] in [place]. Pt will only consider placement if a private room is granted. Referrals sent. CM to follow.
--- NOTE | 2023-06-25 15:48 | MHC.CM.PN ---
[facility] has offered a bed for Tuesday, but is unable to guarantee that he would keep the private room for the duration (he'd be going in to a double room by himself upon arrival). [facility] has yet to make a decision. Gonzalez/family and medical updated. CM to follow.
[2023-06-25] MEDS: Warfarin Sodium 2.5 MG TABLET PO (17:34)
[2023-06-25] MEDS: Atorvastatin Calcium 40 MG TABLET PO (20:23)
[2023-06-26 03:24] VITALS: BP 125/61; PULSE 68; RESP 20; TEMP 36; O2SAT 93
[2023-06-26 06:07] LABS: INTERNATIONAL NORM RATIO 2.8 (0.9-1.1); Prothrombin Time 33.6 SEC (11.1-13.3)
[2023-06-26] MEDS: Omeprazole 40 MG CAPSULE.DR PO (06:27)
[2023-06-26 07:40] VITALS: BP 123/74; PULSE 88; RESP 20; TEMP 36.8; O2SAT 92
[2023-06-26] MEDS: Metoprolol Tartrate 50 MG TABLET PO (08:29)
[2023-06-26] MEDS: Aspirin Enteric Coated 81 MG TABLET.DR PO (08:29)
[2023-06-26] MEDS: Cholecalciferol (Vitamin D3) 25 MCG TABLET PO (08:29)
[2023-06-26] MEDS: Folic Acid 1 MG TABLET PO (08:29)
[2023-06-26] MEDS: Furosemide 40 MG TABLET PO (08:29)
[2023-06-26] MEDS: Empagliflozin 10 MG TABLET PO (08:29)
[2023-06-26] MEDS: Magnesium Oxide 400 MG TABLET PO (08:29)
[2023-06-26] MEDS: timoloL maleate 0.5 % Oph Sol 5 ML DRBTL 1 DROP EYE-BOTH (08:30)
[2023-06-26] MEDS: Losartan Potassium 50 MG TABLET PO (08:30)
[2023-06-26] MEDS: predniSONE 5 MG TABLET 7.5 MG PO (08:32)
[2023-06-26] MEDS: 0.9 % Sodium Chloride Flush 3 ML SYRINGE IVFLUSH (08:35)
--- NOTE | 2023-06-26 08:47 | HE.PHANOTE ---
RE: WARFARIN PT HOME DOSE OF WARFARIN IS 5 MG ON MOFR AND 2.5 MG ALL OTHER DAYS. INR SUPRATHERAPEUTIC ON ADMISSION (3.5) AND DOSE WAS HELD. NEXT DAY HOME REGIMEN CONTINUED AND INR TRENDING UPWARD FOR THELAST 3 DAYS WITH TODAY BEING 2.8. SPOKE WITH DR. TAN TO DECREASE HOME DOSE TO 2.5 MG ALL DAYS.
--- NOTE | 2023-06-26 09:08 | MHC.CM.PN ---
IMM 06/26/23 Male 77 DX COPD EXAC discharged today to Pulmonary rehab @ [facility]. Family has accepted the bed. Transport is booked for 1pm pickler helper. Family has been notified of transport time.
--- NOTE | 2023-06-26 09:31 | P.DS_ITS ---
DS: Providers Provider Date of Service: 06/26/23 Date of admission: 06/23/23 02:07 Primary care physician: Moris Machado III, MD Consults: 06/23/23 07:54 Consult to Cardiology Routine Consulting Provider: [facility] Cardi[facility] Reason for consultation: chf DS: Diagnosis Discharge Diagnosis (1) Acute respiratory failure with hypoxia: Status: Acute (2) CHF exacerbation: Status: Acute (3) SVT (supraventricular tachycardia): Status: Acute DS: Summary Hospital Course Hospital Course: HPI: Yakut-speaking, history is obtained with the help of an strip deburrer ?77-year-old male past medical history of CHF, HTN, COPD, AFib, I will D, heart failure with preserved ejection fraction comes into the hospital complaints of shortness of breath. .? Symptoms started today, he also noticed lower extremity edema for the past 2 days, no cough, no sputum production, no fever or chills fever.? No chest pain, no abdominal pain, nausea vomiting, no diarrhea constipation, no urinary symptoms Hospital course: Patient was initiated on IV diuresis and transitioned to p.o. Lasix once euvolemia was achieved. His home Lasix dose increased to 40 mg daily and Jardiance was added as per Cardiology. Cardiology was consulted during hospital course. He was continued on supplemental oxygen which was adjusted prior to discharge, new baseline. He also had an episode of SVT which corrected without medications. His warfarin was adjusted based on INR throughout hospitalization. Status at Discharge Overall status at discharge: patient is progressing back to baseline Time Spent with Patient Time attestation: Total time managing care of this patient today ____ minutes. Discharge coordination time: Greater than 30 minutes Quality: Safe Use of Opioids Does Pt have an Active Cancer Diagnosis on the Problem List?: No Quality: Stroke Does the patient have a stroke diagnosis?: No Physical Exam Vital Signs: Vital Signs: Last Vital Signs Temp 98.3 F 06/26/23 07:40 Pulse 88 06/26/23 07:40 Resp 20 06/26/23 07:40 BP 123/74 06/26/23 07:40 Pulse Ox 92 06/26/23 07:40 O2 Del Method Nasal Cannula 06/26/23 07:40 O2 Flow Rate 5 06/26/23 07:40 BMI result Body Mass Index 26.1 Elderly lying in bed in mild distress on supplemental oxygen Irregular, S1-S2 heard Regular breath sounds bilaterally, no wheezing or crackles appreciated Abdomen soft nontender, no guarding, no rigidity Patient is awake, alert and oriented to self, time and person ; no focal motor deficit Psych: Normal mood DS: Data Data Completed and Pending Labs on day of discharge: Laboratory Results - last 24 hr 06/25/23 06/26/23 10:11 05:44 PT 30.0 H 33.6 H INR 2.5 H 2.8 H Preliminary micro results at discharge 06/23/23 01:05 Blood Culture - Preliminary Blood - Venous No growth after 48 hours. 06/23/23 01:04 Blood Culture - Preliminary Blood - Venous No growth after 48 hours. Imaging Chest x-ray: Radiologist's impression: ITS Impressions Chest X-Ray 06/22/23 23:55 IMPRESSION: Pulmonary emphysema with lower lobe bronchiectasis and fibrotic change. No consolidation is identified. Discharge Plan Discharge Anticipated Discharge Date/Time: 06/26/23 13:00 Patient Disposition: Xfer Inpatient Rehab Fac Discharge Diagnosis: Acute on chronic hypoxic respiratory failure Referrals: [facility] [Outside] - 1 Week Moris Machado III, MD [Primary Care Provider] - 1 Week Discharge Medications: New methotrexate sodium 2.5 mg Tablet 12.5 mg PO WE Qty: 20 0RF levalbuterol HCl 1.25 mg/3 mL Solution For Nebulization 1.25 mg inhalation Q4H PRN (Reason: shortness of breath ) 30 Days Qty: 72 0RF furosemide 40 mg Tablet 40 mg PO DAILY 30 Days Qty: 30 0RF Protocol: Hold for SBP< HOLD for SBP < : 90 prednisone 5 mg Tablet 7.5 mg PO DAILY Qty: 10 0RF warfarin [Jantoven] 2.5 mg Tablet 2.5 mg PO DAILY@1800 15 Days Qty: 30 0RF Jardiance 10 mg Tablet 10 mg PO DAILY Qty: 30 0RF Continued folic acid 400 mcg tablet 800 mcg PO DAILY tramadol 50 mg tablet 1 tab PO BID PRN (Reason: Pain, Moderate) metoprolol tartrate 50 mg tablet 1 tab PO BID timolol maleate 0.5 % drops 1 drp ophthalmic (eye) DAILY rosuvastatin 10 mg tablet 1 tab PO BEDTIME Humira(CF) Pen 40 mg/0.4 mL pen injector kit 40 mg subcut Q2W Rx Instructions: Fridays aspirin 81 mg Tablet,Delayed Release (Dr/Ec) 81 mg PO DAILY nitroglycerin 0.4 mg tablet, sublingual 0.4 mg sublingual NEEDED PRN (Reason: Chest Pain) cholecalciferol (vitamin D3) [Vitamin D3] 25 mcg (1,000 unit) Capsule 25 mcg PO DAILY fluticasone furoate-vilanterol [Breo Ellipta] 200-25 mcg/dose blister with device 1 puff inhalation DAILY losartan 25 mg tablet 50 mg PO DAILY Ofev 150 mg capsule 150 mg PO BID omeprazole 40 mg capsule,delayed release(DR/EC) 40 mg PO DAILY@0630 Discontinued methotrexate sodium 2.5 mg tablet 5 tab PO WE Rx Instructions: tuesday warfarin 5 mg tablet 5 mg PO MOFR prednisone 2.5 mg tablet 7.5 mg PO DAILY warfarin 5 mg tablet 2.5 mg PO SUTUWETHSA albuterol sulfate 90 mcg/actuation HFA aerosol inhaler 2 puff inhalation Q4-6H PRN (Reason: Shortness Of Breath Or Wheezing) furosemide 20 mg Tablet 20 mg PO DAILY 30 Days Qty: 30 0RF Protocol: Hold for SBP< HOLD for SBP < : 90 prednisone 20 mg tablet 40 mg PO DAILY 5 Days Qty: 10 0RF amlodipine 5 mg tablet 5 mg PO DAILY Discharge Orders: Discharge Order (Routine); Ordered 06/26/23 Ordered By: Estiven Rollins Diet: Low salt diet Activity on Discharge: As tolerated Stand Alone Forms: Patient Portal Discharge page Care Plan Goals: follow-up with PCP, cardiology and pulmonology as outpatient Health Concerns: Chronic hypoxemic respiratory failure due to chronic congestive heart failure with preserved ejection fraction and asthma/ COPD PAF Plan of Treatment: increase Lasix to 40 mg daily added Jardiance continue supplemental oxygen Assessment: as above
[2023-06-26 11:18] VITALS: BP 140/71; PULSE 62; RESP 12; TEMP 36; O2SAT 92
== END 2023-06-26 14:00 | DRG 291 ==
LOC: HO.ED 06-23 01:56 → HO.EDOVER 06-23 02:12 → HO.IMC 06-23 15:05
PROVIDERS: Physician Assistant Medical; Admitting Provider Internal Medicine; Emergency Provider Student in an Organized Health Care Education/Training Program; PCP Internal Medicine; Visit Provider Student in an Organized Health Care Education/Training Program
DX: I11.0 Hypertensive heart disease with heart failure (principal); I50.33 Acute on chronic diastolic (congestive) heart failure; J96.21 Acute and chronic respiratory failure with hypoxia; I47.1 Supraventricular tachycardia; M06.9 Rheumatoid arthritis, unspecified; J44.9 Chronic obstructive pulmonary disease, unspecified; I48.0 Paroxysmal atrial fibrillation; E83.42 Hypomagnesemia; Z87.891 Personal history of nicotine dependence; Z99.81 Dependence on supplemental oxygen; Z79.01 Long term (current) use of anticoagulants; Z79.82 Long term (current) use of aspirin; Z79.51 Long term (current) use of inhaled steroids; Z79.899 Other long term (current) drug therapy
CPT/HCPCS: 36415; 71045; 80048; 80053; 81001; 82803; 83605; 83735; 83880; 84484; 85025; 85610; 87040; 93005; 94640; 97162; 99285; J1650; J1940; J3475

== ENCOUNTER → 2023-06-22 23:39 | Outpatient (BNV) | payer MEDICARE, MEDICAID, SELFPAY | PROVIDERS: Admitting Provider Internal Medicine; Emergency Provider Student in an Organized Health Care Education/Training Program; PCP Internal Medicine; Visit Provider Internal Medicine Cardiovascular Disease | DX: R06.02 Shortness of breath (principal) | CPT/HCPCS: 93010 ==

== ENCOUNTER 2023-06-23 02:07 | Outpatient (BNV) | payer MEDICARE, MEDICAID, SELFPAY ==
--- NOTE | 2023-09-08 21:21 | MHC.OFFVIS ---
Intake Intake Visit Reasons: CHF Exacerbation, Hypoxia Allergies No Known Allergies Allergy (Unknown, Verified 11/21/21 19:48) NOT APPLICABLE HPI HPI Comments History of Present Illness Details NYHA class III CHF. He is planned for cardiomems on 09/08/23. [facility] Medical History Atrial fibrillation Chronic anticoagulation Chronic hypoxemic respiratory failure COPD exacerbation Hypertension ILD (interstitial lung disease) Lymphadenopathy Rheumatoid arthritis Social History Household Members: Spouse Housing: Condominium Do you presently have visiting nurse or other home services: No Alcohol intake: never Patient Tobacco Use Status: Former Tobacco user Quit Date: 23 years ago Tobacco use type: Cigarette Years Smoked: 40 e-Cigarette/Vaping Use: Former Use service: No Current occupational status: retired Coding Level of Care Code Procedure Only
== END 2023-06-23 02:50 ==
PROVIDERS: Admitting Provider Internal Medicine; Emergency Provider Student in an Organized Health Care Education/Training Program; PCP Internal Medicine; Visit Provider Internal Medicine Cardiovascular Disease
DX: I49.1 Atrial premature depolarization (principal); R94.31 Abnormal electrocardiogram [ECG] [EKG]
CPT/HCPCS: 93010

== ENCOUNTER → 2023-06-23 02:07 | Outpatient (BNV) | payer MEDICARE, MEDICAID, SELFPAY | PROVIDERS: Admitting Provider Internal Medicine; Emergency Provider Student in an Organized Health Care Education/Training Program; PCP Internal Medicine; Visit Provider Internal Medicine | DX: J96.01 Acute respiratory failure with hypoxia (principal); I50.9 Heart failure, unspecified; I47.1 Supraventricular tachycardia | CPT/HCPCS: 99223; 99232; 99233; 99239; 99499 ==

== ENCOUNTER → 2023-06-23 02:07 | Outpatient (BNV) | payer MEDICARE, MEDICAID, SELFPAY | PROVIDERS: Admitting Provider Internal Medicine; Emergency Provider Student in an Organized Health Care Education/Training Program; PCP Internal Medicine; Visit Provider Internal Medicine Cardiovascular Disease | DX: I50.9 Heart failure, unspecified (principal); I47.1 Supraventricular tachycardia | CPT/HCPCS: 99222; 99232 ==

== ENCOUNTER 2023-09-28 08:31 | Outpatient (REF) | payer MEDICARE, MEDICAID, SELFPAY ==
[2023-09-28 09:08] LABS: Basophils Absolute Auto 0.1 X10*3/uL (0.0-0.2); Basophils Percent Auto 0.5 % (0-2); Eosinophils Absolute Auto 0.2 X10*3/uL (0.0-0.4); Eosinophils Percent Auto 1.4 % (0-4); Hematocrit 52.6 % (42.0-52.0); Hemoglobin 15.8 g/dl (14.0-18.0); Imm Gran Abs Auto 0.04 X10*3/uL (0.00-0.03); Imm Gran Pct Auto 0.3 % (0.0-0.4); Lymphocytes Percent Auto 33.7 % (20-40); MANUAL DIFF FLAG SCAN; Mean Corpuscular Hemoglobin 25.9 pg (27.0-33.0); Mean Corpuscular Volume 86.1 fL (80.0-98.0); Monocytes Percent Auto 8.6 % (2-11); Neutrophils Absolute Auto 6.6 x10*3/uL (2.0-8.3); Neutrophils Percent Auto 55.5 % (45-73); PLT CLUMP 1; Red Cell Distribution Width 18.2 % (11.0-16.0); SCAN SMEAR FLAG 1
[2023-09-28 09:09] LABS: INTERNATIONAL NORM RATIO 0.9 (0.9-1.1); Prothrombin Time 11.3 SEC (11.1-13.3)
[2023-09-28 09:11] LABS: Red Blood Count 6.11 X10*6/uL (4.60-5.80)
[2023-09-28 09:32] LABS: White Blood Count 11.9 X10*3/uL (4.8-10.8)
[2023-09-28 09:33] LABS: Platelet Count 176 X10*3/uL (160-400)
[2023-09-28 09:34] LABS: SLIDE REVIEW VERIFIED
[2023-09-28 09:51] LABS: Anion Gap 19 (12-20); Blood Urea Nitrogen 28 mg/dL (9-16); Calcium 10.3 mg/dL (8.4-10.2); Carbon Dioxide 24 mmol/L (22-29); Chloride 101 mmol/L (96-108); Estimated Glomerular Filt Rate 41; Glucose Random 256 mg/dL (60-115); Potassium 4.3 mmol/L (3.3-5.1); Sodium 140 mmol/L (135-145)
[2023-09-28 09:53] LABS: B Type Natriuretic Peptide 382 pg/mL (<100)
== END 2023-09-28 08:32 | disposition home or self-care (01) ==
LOC: HO.LAB 08:31
PROVIDERS: PCP Internal Medicine; Visit Provider Internal Medicine Cardiovascular Disease
DX: I50.30 Unspecified diastolic (congestive) heart failure (principal); J96.21 Acute and chronic respiratory failure with hypoxia; J44.1 Chronic obstructive pulmonary disease with (acute) exacerbation; I47.19 Other supraventricular tachycardia
CPT/HCPCS: 36415; 80048; 83880; 85025; 85610

== ENCOUNTER 2023-09-29 11:26 | Day surgery (SDC) | payer MEDICARE, MEDICAID, SELFPAY ==
--- NOTE | 2023-09-08 10:59 | HO.ANESPROP2 ---
HPI - Anesthesia Eval Consult details Narrative: 78yo M for CARDIOMEMS, 09/29/23 Warfarin for afib [facility] Active Problems Active Problems: All Active Problems (Updated 07/04/23 @ 00:29 by Preeti Pelayo) Acute respiratory failure with hypoxia (Acute) (HFpEF) heart failure with preserved ejection fraction (Acute) Acute on chronic right heart failure (Acute) Acute and chronic respiratory failure with hypoxia (Acute) Acute kidney injury (Acute) Hypomagnesemia (Acute) Lymphadenopathy (Acute) COPD exacerbation (Acute) COPD exacerbation (Acute) Asthma with exacerbation (Acute) Influenza A (Acute) Hypoxia (Acute) COPD (chronic obstructive pulmonary disease) (Acute) Past Medical History Medical History Atrial fibrillation Chronic anticoagulation Chronic hypoxemic respiratory failure COPD exacerbation Hypertension ILD (interstitial lung disease) Lymphadenopathy Rheumatoid arthritis Social History Social History Household Members: [facility] Do you presently have visiting nurse or other home services: No Alcohol intake: never Patient Tobacco Use Status: Former Tobacco user Quit Date: 23 years ago Tobacco use type: Cigarette Years Smoked: 40 e-Cigarette/Vaping Use: Former Use service: No Current occupational status: retired Meds Allergies Allergy/AdvReac Type Severity Reaction Status Date / Time No Known Allergies Allergy Unknown NOT Verified 11/21/21 19:48 APPLICABLE Home Medications Medication Instructions Recorded Confirmed Last Taken Type adalimumab 40 mg/0.4 mL 40 mg subcut Q2W 11/20/21 06/23/23 11/13/21 History subcutaneous pen kit (Humira(CF) Pen) folic acid 400 mcg tablet 800 mcg PO DAILY 11/20/21 06/23/23 Unknown History metoprolol tartrate 50 mg tablet 1 tab PO BID 11/20/21 06/23/23 Unknown History rosuvastatin 10 mg tablet 1 tab PO BEDTIME 11/20/21 06/23/23 Unknown History timolol maleate 0.5 % eye drops 1 drp ophthalmic (eye) DAILY 11/20/21 06/23/23 Unknown History tramadol 50 mg tablet 1 tab PO BID PRN Pain, Moderate 11/20/21 06/23/23 06/23/23 History aspirin 81 mg tablet,delayed 81 mg PO DAILY 04/18/23 06/23/23 Unknown History release cholecalciferol (vitamin D3) 25 25 mcg PO DAILY 04/18/23 06/23/23 Unknown History mcg (1,000 unit) capsule (Vitamin D3) fluticasone furoate 200 1 puff inhalation DAILY 04/18/23 06/23/23 Unknown History mcg-vilanterol 25 mcg/dose inhalation powder (Breo Ellipta) nitroglycerin 0.4 mg sublingual 0.4 mg sublingual NEEDED PRN 04/18/23 06/23/23 Unknown History tablet Chest Pain losartan 25 mg tablet 50 mg PO DAILY 06/23/23 06/23/23 Unknown History nintedanib 150 mg capsule (Ofev) 150 mg PO BID 06/23/23 06/23/23 Unknown History omeprazole 40 mg capsule,delayed 40 mg PO DAILY@0630 06/23/23 06/23/23 Unknown History release Exam Exam Date and Time: September 08, 2023 1059 Pertinent Lab Results Pertinent Lab Results: Laboratory Tests 06/23/23 06/25/23 04:15 06:59 WBC 7.6 Hgb 12.2 L Hct 38.5 L Plt Count 192 Sodium 141 Potassium 3.3 Chloride 100 Carbon Dioxide 26 BUN 30 H Creatinine 1.25 Narrative Narrative: EKG 05/2023 Vent. Rate : 085 BPM Atrial Rate : 085 BPM P-R Int : 130 ms QRS Dur : 128 ms QT Int : 400 ms P-R-T Axes : 092 115 -15 degrees QTc Int : 476 ms Sinus rhythm with Premature atrial complexes Right bundle branch block Possible Lateral infarct (cited on or before 08-JAN-2009) Cannot rule out Inferior infarct , age undetermined Abnormal ECG When compared with ECG of 22-JUN-2023 23:59, No significant change was found ECHO 2022 Conclusions: - The left ventricular systolic function is normal. The calculated ejection fraction is 65% by biplane method. - Moderately increased right ventricular cavity size. There is normal right ventricular systolic function. - There is mild tricuspid valve regurgitation. - Moderate pulmonary hypertension is present. Assessment and Plan Assessment Anesthesia Assessment: Chart Reviewed
--- NOTE | 2023-09-09 08:02 | PC.NURSE ---
spoke with pt's higinio. pt states unaware of scheduled appt although dr. chapa's office and short stay spoke with pt yesterday, states no electronics commodity manager and misunderstanding (pt spoke brazilian to this RN). Pt ate breakfast, pt educated that her log cooker ordered this procedure and to call for reschedule of this procedure to prevent heart failure. verbalizes understanding with electronics commodity manager on phone.
[2023-09-29] VITALS (18 sets, daily range): BP systolic 114–152; BP diastolic 57–100; PULSE 68–76; RESP 16–18; TEMP 36.2–36.6; O2SAT 90–97; BMI 26.8
[2023-09-29 12:40] LABS: INTERNATIONAL NORM RATIO 0.9 (0.9-1.1); Prothrombin Time 11.5 SEC (11.1-13.3)
[2023-09-29 13:12] LABS: Glucose, Whole Blood 303 mg/dL (60-115)
--- NOTE | 2023-09-29 13:13 | PC.NURSE ---
Dr. Frenchood aware of POC result of 303. Okay to proceed. No interventions at this time.
[2023-09-29] MEDS: Albuterol Sulfate (0.083%) 2.5 MG/3 ML VIAL.NEB INHALE (13:35)
--- NOTE | 2023-09-29 16:11 | W.PM.OPN ---
Operative Note Operative Note Date of Service: 09/29/23 Narrative: Procedure:? CardioMEMS implantation. Surgeon:? Tmo Ojeda MD Anesthesia: Conscious sedation. Indication: CHF Patient was seen and examined before the procedure and informed consent was obtained. In the room, time-out was performed for proper patient identification.? After sedation, the patient was draped in a usual fashion.? We gave lidocaine subcutaneously in the right femoral area and using micropuncture technique we placed the 4 [place] sheath into the right common femoral vein.? We advanced 0.035 J tipped wire and advanced a 6 [place] dilator.? After dilation we preclosed using a Perclose ProGlide.? The wire was advanced through the ProGlide and 11 [place] sheath was placed in the common femoral vein. We advanced a 7 [place] catheter and measured pressures in right atrium, right ventricle and left pulmonary artery.? We wedged the catheter and recorded the pulmonary capillary wedge pressure. Right heart catheterization findings:? RA 6 RV 83/9 PA 83/20/44 PCWP 10 BP 170/85 After this we performed a pulmonary angiogram and selected the appropriate branch to wire into.? Using an 0.018 wire we wired into branch of pulmonary artery on the left side and walk the [place] catheter.? Over the 018 wire we advanced the CardioMEMS delivery catheter.? Once we were at the appropriate confirmed by fluoroscopy and anatomical landmarks, the CardioMEMS device was released.? We gently backed the delivery catheter and the 018 wire.? Over the 0.018 wire we then advanced this [place] catheter again and measured pulmonary artery pressure.? Post implant PA pressures 90/24/50, PCWP 12. We calibrated the device.? At this stage the [place] catheter was removed.? The sheath was removed and Perclose sutures were tied and gentle pressure was held for few minutes to achieve hemostasis. Complications:? None.
== END 2023-09-29 19:45 | disposition home or self-care (01) ==
PROVIDERS: Nurse Practitioner; PCP Internal Medicine; Visit Provider Internal Medicine Cardiovascular Disease
DX: I11.0 Hypertensive heart disease with heart failure (principal); I50.30 Unspecified diastolic (congestive) heart failure; I25.2 Old myocardial infarction; I48.0 Paroxysmal atrial fibrillation; E78.5 Hyperlipidemia, unspecified; M05.9 Rheumatoid arthritis with rheumatoid factor, unspecified; J84.9 Interstitial pulmonary disease, unspecified; J44.9 Chronic obstructive pulmonary disease, unspecified; Z99.81 Dependence on supplemental oxygen; Z79.01 Long term (current) use of anticoagulants; Z79.899 Other long term (current) drug therapy; Z87.891 Personal history of nicotine dependence
CPT/HCPCS: 33289; 36415; 82947; 85610; 94640; 99152; 99153; C1769; C1887; C1894; C2624; J2250; J3010; Q9967

== ENCOUNTER → 2023-09-29 11:26 | Outpatient (BNV) | payer MEDICARE, MEDICAID, SELFPAY | PROVIDERS: PCP Internal Medicine; Visit Provider Internal Medicine Cardiovascular Disease | DX: I50.30 Unspecified diastolic (congestive) heart failure (principal) | CPT/HCPCS: 33285 ==

== ENCOUNTER 2023-10-13 12:47 | Outpatient (AMB) | payer MEDICARE, MEDICAID, SELFPAY ==
--- NOTE | 2023-10-13 13:04 | A.OFFVIS_ITS ---
Intake Vital Signs 10/13/23 13:05 Height 5 ft 11 in Weight 188 lb 11.451 oz BMI 26.3 BP 132/64 Blood Pressure Location Lt brachial Position Sitting Pulse 70 Pulse Source Pulse Oximeter Intake Visit Reasons: Follow up post cardiomems Education Finance Processor Required: Yes Education Finance Processor Name: mehnaz Rangel [id number] Jamb Cutter: Jamb Cutter Present Accompanied by: Significant Other Allergies No Known Allergies Allergy (Unknown, Verified 10/13/23 13:07) NOT APPLICABLE Medication List - Last Reconciled 10/13/23 by ORIN Greer adalimumab (Humira(CF) Pen) 40 mg subcut Q2W aspirin 81 mg PO DAILY cholecalciferol (vitamin D3) (Vitamin D3) 25 mcg PO DAILY empagliflozin (Jardiance) 10 mg PO DAILY fluticasone furoate-vilanterol 200-25 mcg/dose (Breo Ellipta) 1 puff inhalation DAILY folic acid 800 mcg PO DAILY furosemide 40 mg See Protocol PO DAILY 30 days levalbuterol HCl 1.25 mg (3 mL) inhalation Q4H PRN 30 days methotrexate sodium 12.5 mg (5 x 2.5 mg) PO WE metoprolol tartrate 1 tab PO BID nintedanib (Ofev) 150 mg PO BID nitroglycerin 0.4 mg sublingual NEEDED PRN omeprazole 40 mg PO DAILY@0630 prednisone 7.5 mg (1.5 x 5 mg) PO DAILY rosuvastatin 1 tab PO BEDTIME sacubitril-valsartan 24-26 mg (Entresto) tabs PO timolol maleate 0.5% 1 drp ophthalmic (eye) DAILY tramadol 1 tab PO BID PRN warfarin (Jantoven) 2.5 mg PO DAILY@1800 15 days HPI Follow up post cardiomems HPI Details Tommy is a 78 yo male with PMH of HTN, COPD, HFpEF, SVT, PAF who had cardiomems device inserted on 09/08/23 and now presents for follow up. His primary was health editor is Dr Neisha Brar and he now tells me he is switching to our cardiology office. Today he states he has been feeling well recently. He has chronic shortness of breath and wears oxygen continually. He still describes his breathing as comfortable. He denies PND, orthopnea or edema. He tells me he sleeps with 1 pillow. No chest discomfort at rest or with activity. No heart palpitations, dizziness, presyncope, syncope, falls. Walks routinely for exercise. is present. Certified asp net developer used. [facility] Medical History SVT (supraventricular tachycardia) CHF exacerbation Chronic anticoagulation Atrial fibrillation Chronic hypoxemic respiratory failure Hypertension Rheumatoid arthritis Lymphadenopathy ILD (interstitial lung disease) COPD exacerbation Surgical History Hx of colonoscopy Social History Household Members: [facility] Do you presently have visiting nurse or other home services: No Alcohol intake: never Patient Tobacco Use Status: Former Tobacco user Quit Date: 23 years ago Tobacco use type: Cigarette Years Smoked: 40 e-Cigarette/Vaping Use: Former Use service: No Current occupational status: retired Review of Systems Const All systems reviewed & are unremarkable except as noted in HPI and below ENT Denies dizziness Card Denies chest pain, Denies chest pain at rest, Denies chest pain with activity, Denies rapid heart rate, Denies pedal edema, Denies edema, Denies leg edema, Denies lightheadedness, Denies palpitations, Reports dyspnea, Denies dyspnea on exertion and Denies orthopnea Resp Denies cough, Reports dyspnea and Denies dyspnea on exertion GI Denies hematochezia and Denies change in stool character Musc Denies abnormal gait, Denies limited range of motion, Denies muscle cramps, Denies muscle weakness, Denies numbness, Denies radiating pain into limb, Denies stiffness and Denies tingling Neuro Denies abnormal gait, Denies dizziness, Denies numbness and Denies tingling Endo Denies palpitations Physical Exam Vital Signs: Last Vital Signs Pulse 70 10/13/23 13:05 BP 132/64 10/13/23 13:05 BMI result Body Mass Index 26.3 Const General: cooperative, healthy appearing, comfortable and no acute distress Orientation/consciousness: patient oriented x3 Resp Other: wearing O2 with cannuls Effort & Inspection: normal respiratory effort Auscultation: clear to auscultation bilaterally, no crackles, no rales, no rhonchi and no wheezes Cardio Jugular venous distension: no JVD Rate: regular rate Rhythm: regular rhythm Heart sounds: S1 normal heart sound present, S2 normal heart sound present, no gallops, no murmurs and no rubs Peripheral pulses: Peripheral pulses 2+ throughout Neuro General: patient oriented x3 Extrem Other: right femoral cardiomems site with easly palpable femoral pulse, no ecchimosis or swelling. General: Yes normal to inspection Psych Appearance: grossly normal Mental Status: mental status grossly normal Speech and movement: Normal speech and movement present Assessment & Plan Assessment & Plan (1) Visit for wound check: Code(s): Z51.89 - Encounter for other specified aftercare Plan: CardioMEMS device inserted on 09/29/[address] Ojeda. Right femoral site healing well. No signs of swelling or infection. (2) (HFpEF) heart failure with preserved ejection fraction: Code(s): I50.30 - Unspecified diastolic (congestive) heart failure Plan: History of heart failure with preserved EF. Last echocardiogram done 04/18/2023 showing EF 65%, moderate increase in the RV cavity size, normal RV systolic function, mild TR and moderate pulmonary hypertension. CardioMEMS not device now in place to help with heart failure management. PA pressures to be monitored daily at this time and diuretics can be adjusted as warranted. On examination today he does not appear to have decompensated heart failure. He does wear oxygen continually which he says has been for the last 3 months. Medications reviewed and no changes made. He will continue on Lasix 40 mg daily. Signs and symptoms of heart failure reviewed with him. Cardiology follow-up to re-evaluate symptoms in 3-4 months. Last hospitalization was in August. (3) Atrial fibrillation: Code(s): I48.91 - Unspecified atrial fibrillation Plan: History of paroxysmal atrial fibrillation. Currently suppressed with use of metoprolol. No reports of heart palpitations. Pulse is regular on examination. He is on Coumadin for anticoagulation. Follows with [facility]. No bleeding issues reported. (4) SVT (supraventricular tachycardia): Code(s): I47.1 - Supraventricular tachycardia Plan: Prior history of SVT. No recent events. Continues on metoprolol Coding Level of Care Code Est Pt Level 3 (19172) Diagnoses Visit for wound check Z51.89 (HFpEF) heart failure with preserved ejection fraction I50.30 Atrial fibrillation I48.91 SVT (supraventricular tachycardia) I47.1 Time Spent (min) 22
[2023-10-13 13:05] VITALS: BP 132/64; PULSE 70; BMI 26.3
== END 2023-10-13 13:32 | disposition home or self-care (01) ==
PROVIDERS: PCP Internal Medicine; Visit Provider Nurse Practitioner Family
DX: Z51.89 Encounter for other specified aftercare (principal); I50.30 Unspecified diastolic (congestive) heart failure; I48.91 Unspecified atrial fibrillation; I47.1 Supraventricular tachycardia
CPT/HCPCS: 99213

== ENCOUNTER → 2023-10-13 12:47 | Outpatient (BNVA) | payer MEDICARE, MEDICAID, SELFPAY | PROVIDERS: PCP Internal Medicine; Visit Provider Nurse Practitioner Family | DX: Z51.89 Encounter for other specified aftercare (principal); I50.30 Unspecified diastolic (congestive) heart failure; I48.91 Unspecified atrial fibrillation; I47.10 Supraventricular tachycardia, unspecified | CPT/HCPCS: 99212 ==

== ENCOUNTER 2023-10-26 09:30 | Outpatient (REF) | payer MEDICARE, MEDICAID, SELFPAY ==
[2023-10-26 10:35] LABS: B Type Natriuretic Peptide 365 pg/mL (<100)
[2023-10-26 11:05] LABS: Anion Gap 17 (12-20); Blood Urea Nitrogen 34 mg/dL (9-16); Calcium 10.1 mg/dL (8.4-10.2); Carbon Dioxide 28 mmol/L (22-29); Chloride 95 mmol/L (96-108); Estimated Glomerular Filt Rate 31; Glucose Random 499 mg/dL (60-115); Potassium 5.1 mmol/L (3.3-5.1); Sodium 135 mmol/L (135-145)
== END 2023-10-26 09:31 | disposition home or self-care (01) ==
LOC: HO.LAB 09:30
PROVIDERS: PCP Internal Medicine; Visit Provider Nurse Practitioner Family
DX: I50.30 Unspecified diastolic (congestive) heart failure (principal)
CPT/HCPCS: 36415; 80048; 83880

== ENCOUNTER 2023-11-02 10:37 | Outpatient (REF) | payer MEDICARE, MEDICAID, SELFPAY ==
[2023-11-02 12:30] LABS: B Type Natriuretic Peptide 417 pg/mL (<100)
[2023-11-02 12:33] LABS: Anion Gap 17 (12-20); Blood Urea Nitrogen 30 mg/dL (9-16); Carbon Dioxide 25 mmol/L (22-29); Chloride 97 mmol/L (96-108); Estimated Glomerular Filt Rate 37; Potassium 4.9 mmol/L (3.3-5.1); Sodium 134 mmol/L (135-145)
[2023-11-02 13:15] LABS: Glucose Random 481 mg/dL (60-115)
== END 2023-11-02 10:38 | disposition home or self-care (01) ==
LOC: HO.LAB 10:37
PROVIDERS: Nurse Practitioner Family; PCP Internal Medicine; Visit Provider Internal Medicine Cardiovascular Disease
DX: I50.30 Unspecified diastolic (congestive) heart failure (principal)
CPT/HCPCS: 36415; 80048; 83880

== ENCOUNTER → 2023-11-04 23:59 | Outpatient (BNV) | payer MEDICARE, MEDICAID, SELFPAY ==
--- NOTE | 2023-11-14 12:19 | MHC.OFFVIS ---
Intake Intake Visit Reasons: Remote CardioMEMS- [facility] Allergies No Known Allergies Allergy (Unknown, Verified 10/13/23 13:07) NOT APPLICABLE PFSH Medical History SVT (supraventricular tachycardia) CHF exacerbation Chronic anticoagulation Atrial fibrillation Chronic hypoxemic respiratory failure Hypertension Rheumatoid arthritis Lymphadenopathy ILD (interstitial lung disease) COPD exacerbation Surgical History Hx of colonoscopy Social History Household Members: [facility] Do you presently have visiting nurse or other home services: No Alcohol intake: never Patient Tobacco Use Status: Former Tobacco user Quit Date: 23 years ago Tobacco use type: Cigarette Years Smoked: 40 e-Cigarette/Vaping Use: Former Use service: No Current occupational status: retired Office Procedures Cardiac Device Check Cardiac Device Check Details: Monitoring period dates:09/28/23 - 10/28/23 Optimal PA pressure range: Goal to be determined Procedure code: 40046 BACKGROUND: Tommy is implanted with the CardioMEMS PA Sensor.? I use this technology to monitor PA pressures on a weekly basis to ensure patients are within their optimal range to prevent decompensation.? SUMMARY:? I utilized the remote monitoring platform (Datezr) to set optimal targets for pulmonary artery pressure thresholds as part of acute and chronic management of patient?s heart failure. During the period indicated above, I monitored the patient?s pulmonary artery pressures weekly via trend analysis and notification reports which provide alerts when patient?s PA pressures were outside of range to prompt immediate action in medication changes and communications.? The weekly reports are archived in the Datezr system which serve as a parallel record to document weekly PA pressures, medication changes, and clinical notes. I have reviewed readings on 09/30, 10/07. 10/13, 10/17, 10/23, 10/27. PAD has ranged between 30-36 mmhg. [place]. 22165 - Remote monitoring of wireless pulmonary artery pressure sensor Procedure code (CPT) selection complete Assessment & Plan Assessment & Plan (1) Presence of CardioMEMS HF system: Code(s): Z95.818 - Presence of other cardiac implants and grafts Plan: monthly report Coding Level of Care Code Procedure Only Diagnoses Presence of CardioMEMS HF system Z95.818 CPT Codes Cardiac Device Check - Cardiac Device 17: 55943 - Remote monitoring of wireless pulmonary artery pressure sensor ([id number])
== END ==
PROVIDERS: PCP Internal Medicine; Visit Provider Nurse Practitioner Family
DX: I50.30 Unspecified diastolic (congestive) heart failure (principal); Z95.818 Presence of other cardiac implants and grafts
CPT/HCPCS: 93264

== ENCOUNTER 2023-11-07 21:14 | Emergency (ER) | payer MEDICARE, MEDICAID, SELFPAY ==
--- NOTE | 2023-11-07 | ECG_ITS ---
Test Reason : CHEST PAIN Blood Pressure : / mmHG Vent. Rate : 082 BPM Atrial Rate : 074 BPM P-R Int : 140 ms QRS Dur : 130 ms QT Int : 436 ms P-R-T Axes : 072 136 -04 degrees QTc Int : 509 ms Sinus rhythm with Premature atrial complexes Right bundle branch block Possible Lateral infarct , age undetermined Abnormal ECG When compared with ECG of 23-JUN-2023 19:56, Premature atrial complexes are now Present Vent. rate has decreased BY 99 BPM Borderline criteria for Lateral infarct are now Present ST no longer depressed in Inferior leads ST less depressed in Anterior leads Referred By: Generic ED Physician Electronically Signed By:Tom Ojeda
[2023-11-07 21:20] VITALS: BP 127/90; PULSE 88; O2SAT 96; BMI 23.6
[2023-11-07 21:29] VITALS: BP 144/62; PULSE 79; RESP 13; O2SAT 96
--- NOTE | 2023-11-07 21:33 | ED_ITS ---
HPI - Chest Pain General Chief Complaint: Chest Pain Stated Complaint: high blood sugar, BGL of 305 Time Seen by Provider: 11/07/23 21:33 Source: patient Mode of arrival: ambulatory Limitations: no limitations History of Present Illness HPI narrative: Patient is 78 years with chronic lung disease on prednisone 7.5 mg daily for last 8 months for last 2 months patient noticed to have high blood sugar started on Jardiance 10 mg increased to 25 mg 2 days ago today patient and checked his blood sugar was reading high when EMS checked it was 305 no fever no chills no abdominal pain in the labs done in our ER shows blood sugar of 517 Related Data Home Medications Medication Instructions Recorded Confirmed adalimumab 40 mg/0.4 mL 40 mg subcut Q2W 11/20/21 10/13/23 subcutaneous pen kit (Humira(CF) Pen) folic acid 400 mcg tablet 800 mcg PO DAILY 11/20/21 10/13/23 metoprolol tartrate 50 mg tablet 1 tab PO BID 11/20/21 10/13/23 rosuvastatin 10 mg tablet 1 tab PO BEDTIME 11/20/21 10/13/23 timolol maleate 0.5 % eye drops 1 drp ophthalmic (eye) DAILY 11/20/21 10/13/23 tramadol 50 mg tablet 1 tab PO BID PRN Pain, Moderate 11/20/21 10/13/23 aspirin 81 mg tablet,delayed 81 mg PO DAILY 04/18/23 10/13/23 release cholecalciferol (vitamin D3) 25 25 mcg PO DAILY 04/18/23 10/13/23 mcg (1,000 unit) capsule (Vitamin D3) fluticasone furoate 200 1 puff inhalation DAILY 04/18/23 10/13/23 mcg-vilanterol 25 mcg/dose inhalation powder (Breo Ellipta) nitroglycerin 0.4 mg sublingual 0.4 mg sublingual NEEDED PRN 04/18/23 10/13/23 tablet Chest Pain nintedanib 150 mg capsule (Ofev) 150 mg PO BID 06/23/23 10/13/23 omeprazole 40 mg capsule,delayed 40 mg PO DAILY@0630 06/23/23 10/13/23 release sacubitril 24 mg-valsartan 26 mg tab PO 10/13/23 10/13/23 tablet (Entresto) Previous Rx's Medication Instructions Recorded empagliflozin 10 mg tablet 10 mg PO DAILY #30 tabs 06/26/23 (Jardiance) furosemide 40 mg tablet 40 mg PO DAILY 30 days #30 tabs 06/26/23 levalbuterol HCl 1.25 mg/3 mL 1.25 mg (3 mL) inhalation Q4H PRN 06/26/23 solution for nebulization shortness of breath 30 days #72 mL methotrexate sodium 2.5 mg tablet 12.5 mg (5 x 2.5 mg) PO WE #20 tabs 06/26/23 prednisone 5 mg tablet 7.5 mg (1.5 x 5 mg) PO DAILY #10 06/26/23 tabs warfarin 2.5 mg tablet (Jantoven) 2.5 mg PO DAILY@1800 15 days #30 06/26/23 tabs insulin glargine 100 unit/mL (3 20 unit (0.2 mL) subcut QPM #15 mL 11/07/23 mL) subcutaneous pen (Lantus Solostar U-100 Insulin) Allergies Allergy/AdvReac Type Severity Reaction Status Date / Time No Known Allergies Allergy Unknown NOT Verified 10/13/23 13:07 APPLICABLE Review of Systems 2 Review of Systems: Yes all other systems are reviewed and are negative [facility] Past Medical History Medical History SVT (supraventricular tachycardia) CHF exacerbation Chronic anticoagulation Atrial fibrillation Chronic hypoxemic respiratory failure Hypertension Rheumatoid arthritis Lymphadenopathy ILD (interstitial lung disease) COPD exacerbation Surgical History Hx of colonoscopy Social History Social History Household Members: Spouse Housing: Condominium Do you presently have visiting nurse or other home services: No Alcohol intake: never Patient Tobacco Use Status: Former Tobacco user Quit Date: 23 years ago Tobacco use type: Cigarette Years Smoked: 40 Smoked in Last 30 Days: No e-Cigarette/Vaping Use: Former Use Advance Directives: No Advance Directives Information Provided: No service: No Current occupational status: retired Physical Exam 2 Vital Signs: Vital Signs: Last Vital Signs Temp 97.9 F 11/07/23 23:44 Pulse 65 11/07/23 23:44 Resp 18 11/07/23 23:44 BP 139/55 L 11/07/23 23:44 Pulse Ox 98 11/07/23 23:44 O2 Del Method Nasal Cannula 11/07/23 23:44 O2 Flow Rate 3 11/07/23 23:44 BMI result Body Mass Index 23.6 Appearance: Alert. Oriented X3. No acute distress. Eyes: No pallor or icterus ENT: Pharynx normal. Oral Mucosa moist Neck: Normal inspection. Neck supple. CVS: Irregularly irregular heart rate no murmur or gallop. Pulses normal. Respiratory: No respiratory distress. Equal air entry bilateral, no wheezing/rales/rhonchi Abdomen: Soft and nontender. Bowel sounds are present, no mass palpable, no CVA tenderness Skin: Skin warm and dry. Normal skin color. Normal skin turgor. Extremities: No lower extremity edema. No calf tenderness Neuro: Oriented X 3. No motor deficit. No sensory deficit. Medications Administered Discontinued Medications Generic Name Dose Route Start Last Admin Trade Name Freq PRN Reason Stop Dose Admin Sodium Chloride 1,000 mls @ 999 mls/hr 11/07/23 22:06 11/07/23 23:36 Ns IV 11/07/23 23:06 Infused .Q1H1M ONE Infusion Insulin Glargine 20 unit 11/07/23 22:06 11/07/23 22:30 Insulin Glargine,Hum.Rec.Anlog 100 Unit/Ml 10 Ml Vial SUBCUT 11/07/23 22:07 20 unit ONCE ONE Administration Insulin Human Lispro 14 unit 11/07/23 22:06 11/07/23 22:30 Insulin Lispro 100 Unit/Ml 3 Ml Vial SUBCUT 11/07/23 22:07 14 unit ONCE ONE Administration Insulin Human Lispro 5 unit 11/07/23 23:34 11/07/23 23:43 Insulin Lispro 100 Unit/Ml 3 Ml Vial SUBCUT 11/07/23 23:35 5 unit ONCE ONE Administration Medical Decision Making Medical Decision Making [facility] Narrative: Patient hyperglycemic secondary to chronic prednisone use, on Jardiance advised to continue same will start giving him Lantus insulin every evening advised to follow up neonatal icu coordinator to take patient off prednisone for now will decrease the dose of prednisone to 5 mg patient feels improved after insulin in the ER Differential Diagnosis Differential Diagnoses: The differential diagnosis associated with the presentation includes Hyperglycemia secondary to prednisone/diabetic/dehydration/DKA/ Lab Data [facility] Lab Attestation statement: I reviewed the patient's lab results. 11/07/23 21:40 11/07/23 21:40 Labs: Lab Results 11/07/23 11/07/23 11/07/23 Range/Units 21:40 22:33 23:32 WBC 7.7 (4.8-10.8) X10*3/uL RBC 5.49 (4.60-5.80) X10*6/uL Hgb 15.0 (14.0-18.0) g/dl Hct 47.3 (42.0-52.0) % MCV 86.2 (80.0-98.0) fL MCH 27.3 (27.0-33.0) pg MCHC 31.7 (31.0-36.0) g/dl RDW 18.4 H (11.0-16.0) % Plt Count 146 L (160-400) X10*3/uL MPV Not Reportable Immature Gran % (Auto) 0.7 H (0.0-0.4) % Neut % (Auto) 65.8 (45-73) % Lymph % (Auto) 25.5 (20-40) % Door % (Auto) 7.4 (2-11) % Eos % (Auto) 0.3 (0-4) % Baso % (Auto) 0.3 (0-2) % Lymph # (Auto) 2.0 (1.2-4.9) X10*3/uL Door # (Auto) 0.6 (0.1-1.2) X10*3/uL Eos # (Auto) 0.0 (0.0-0.4) X10*3/uL Baso # (Auto) 0.0 (0.0-0.2) X10*3/uL Abs Immat Gran (auto) 0.05 H (0.00-0.03) X10*3/uL Absolute Neuts (auto) 5.1 (2.0-8.3) x10*3/uL Absolute Nucleated RBC 0.000 (0.0-0.012) X10*3/uL Nucleated RBC % (auto) 0.0 (0.0-0.2) /100WBC Smear Tech's Comments VERIFIED Sodium 134 L (135-145) mmol/L Potassium 4.7 (3.3-5.1) mmol/L Chloride 100 (96-108) mmol/L Carbon Dioxide 22 (22-29) mmol/L Anion Gap 17 (12-20) BUN 30 H (9-16) mg/dL Creatinine 2.08 H (0.5-1.4) mg/dL Estim Creat Clear Calc 30.6 Estimated GFR 31 POC Glucose 383 H* (60-115) mg/dL Random Glucose 517 H* (60-115) mg/dL Calcium 9.7 (8.4-10.2) mg/dL Magnesium 2.1 (1.6-2.6) mg/dL Total Bilirubin 0.4 (0.0-1.0) mg/dL AST 61 H (5-37) U/L ALT 48 H (0-40) U/L Alkaline Phosphatase 84 (39-117) U/L Troponin I High Sens 33.8 D (<3.5-35.0) ng/L B-Natriuretic Peptide 586 H (<100) pg/mL Total Protein 8.2 H (6.5-8.0) g/dL Albumin 3.7 (3.5-5.0) g/dL Urine Color Yellow Urine Appearance Clear Urine pH 6.0 (5.0-9.0) Ur Specific [place] 1.020 (1.005-1.025) Urine Protein 30 (1+) H (Neg-Trace) mg/dL Urine Glucose (UA) >=1000 H (Negative) mg/dL Urine Ketones Negative (Negative) mg/dL Urine Blood Trace H (Negative) Urine Nitrite Negative (Negative) Ur Leukocyte Esterase Negative (Negative) Urine RBC 0-2 (0-2) /HPF Urine WBC 0-5 (0-5) /HPF Ur Squamous Epith Cells 0-2 (0-2) /HPF Urine Bacteria None Seen (None Seen) Hyaline Casts 0-2 (0-2) /LPF Discharge Plan Discharge Clinical Impression: Diabetes mellitus with hyperglycemia Patient Disposition: Home, Self-Care Instructions: Diabetic Hyperglycemia (ED) Additional Instructions: Drink plenty of fluids Decrease the dose of prednisone to 5 mg Start taking Lantus insulin 20 units every night Continue Jardiance Check blood sugar 3 times a day and follow with PCP Speak to a neonatal icu coordinator about discontinuing prednisone as it causing the high blood sugar Beber mucho l?quido Disminuir la dosis de prednisona a 5 mg. Empiece a francie insulina Lantus 20 unidades cada noche. Continuar Jardiance Controle el nivel de az?car en jayde 3 veces al d?a y siga con PCP Hable con un neum?logo sobre la posibilidad de suspender la prednisona, ya que causa niveles altos de az?car en la jayde. Prescriptions: New insulin glargine [Lantus Solostar U-100 Insulin] 100 unit/mL (3 mL) insulin pen 20 unit subcut QPM Qty: 15 2RF No Action folic acid 400 mcg tablet 800 mcg PO DAILY tramadol 50 mg tablet 1 tab PO BID PRN (Reason: Pain, Moderate) metoprolol tartrate 50 mg tablet 1 tab PO BID timolol maleate 0.5 % drops 1 drp ophthalmic (eye) DAILY rosuvastatin 10 mg tablet 1 tab PO BEDTIME Humira(CF) Pen 40 mg/0.4 mL pen injector kit 40 mg subcut Q2W Rx Instructions: Fridays aspirin 81 mg Tablet,Delayed Release (Dr/Ec) 81 mg PO DAILY nitroglycerin 0.4 mg tablet, sublingual 0.4 mg sublingual NEEDED PRN (Reason: Chest Pain) cholecalciferol (vitamin D3) [Vitamin D3] 25 mcg (1,000 unit) Capsule 25 mcg PO DAILY fluticasone furoate-vilanterol [Breo Ellipta] 200-25 mcg/dose blister with device 1 puff inhalation DAILY Ofev 150 mg capsule 150 mg PO BID omeprazole 40 mg capsule,delayed release(DR/EC) 40 mg PO DAILY@0630 methotrexate sodium 2.5 mg Tablet 12.5 mg PO WE Qty: 20 0RF levalbuterol HCl 1.25 mg/3 mL Solution For Nebulization 1.25 mg inhalation Q4H PRN (Reason: shortness of breath ) 30 Days Qty: 72 0RF furosemide 40 mg Tablet 40 mg PO DAILY 30 Days Qty: 30 0RF Protocol: Hold for SBP< HOLD for SBP < : 90 prednisone 5 mg Tablet 7.5 mg PO DAILY Qty: 10 0RF warfarin [Jantoven] 2.5 mg Tablet 2.5 mg PO DAILY@1800 15 Days Qty: 30 0RF Jardiance 10 mg Tablet 10 mg PO DAILY Qty: 30 0RF Entresto 24-26 mg tablet PO Print Language: Portuguese
[2023-11-07 21:46] LABS: Basophils Percent Auto 0.3 % (0-2); Mean Corpuscular HGB Conc 31.7 g/dl (31.0-36.0); Red Cell Distribution Width 18.4 % (11.0-16.0); SCAN SMEAR FLAG 1
[2023-11-07 21:48] LABS: Eosinophils Percent Auto 0.3 % (0-4); Hematocrit 47.3 % (42.0-52.0); Imm Gran Abs Auto 0.05 X10*3/uL (0.00-0.03); Imm Gran Pct Auto 0.7 % (0.0-0.4); Lymphocytes Percent Auto 25.5 % (20-40); MANUAL DIFF FLAG SCAN; Mean Corpuscular Hemoglobin 27.3 pg (27.0-33.0); Mean Corpuscular Volume 86.2 fL (80.0-98.0); Monocytes Absolute Auto 0.6 X10*3/uL (0.1-1.2); Monocytes Percent Auto 7.4 % (2-11); Neutrophils Absolute Auto 5.1 x10*3/uL (2.0-8.3); Neutrophils Percent Auto 65.8 % (45-73); PLT CLUMP 1; Red Blood Count 5.49 X10*6/uL (4.60-5.80)
[2023-11-07 21:49] LABS: PLT ABN DIST 1; White Blood Count 7.7 X10*3/uL (4.8-10.8)
[2023-11-07 21:55] VITALS: BP 124/67; PULSE 80; RESP 16; TEMP 36.6; O2SAT 97
[2023-11-07 22:05] LABS: Alanine Aminotransferase 48 U/L (0-40); Albumin Level 3.7 g/dL (3.5-5.0); Alkaline Phosphatase 84 U/L (39-117); Anion Gap 17 (12-20); Aspartate Amino Transferase 61 U/L (5-37); Bilirubin Total 0.4 mg/dL (0.0-1.0); Blood Urea Nitrogen 30 mg/dL (9-16); Calcium 9.7 mg/dL (8.4-10.2); Carbon Dioxide 22 mmol/L (22-29); Chloride 100 mmol/L (96-108); Creatinine Clr Calc Pharmacy 30.6; Estimated Glomerular Filt Rate 31; Glucose Random 517 mg/dL (60-115); Magnesium 2.1 mg/dL (1.6-2.6); Potassium 4.7 mmol/L (3.3-5.1); Sodium 134 mmol/L (135-145); Total Protein 8.2 g/dL (6.5-8.0)
[2023-11-07 22:07] LABS: B Type Natriuretic Peptide 586 pg/mL (<100)
[2023-11-07 22:09] LABS: Troponin-I High Sensitivity 33.8 ng/L (<3.5-35.0)
[2023-11-07 22:12] LABS: Platelet Count 146 X10*3/uL (160-400)
[2023-11-07 22:13] LABS: SLIDE REVIEW VERIFIED
[2023-11-07] MEDS: 0.9 % Sodium Chloride 1,000 ML 999 ML IV (22:29)
[2023-11-07] MEDS: Insulin Glargine,Hum.rec.anlog 100 UNIT/ML 10 ML VIAL 20 UNIT SUBCUT (22:30)
[2023-11-07] MEDS: Insulin Lispro 100 UNIT/ML 3 ML VIAL 14 UNIT SUBCUT (22:30)
[2023-11-07 22:41] LABS: Appearance Urine Clear; Color Urine Yellow; Glucose Urine UA >=1000 mg/dL (Negative); Leukocyte Esterase Urine Negative (Negative); Nitrite Urine Negative (Negative); UMIC TRIGGER UACC YES; Urine Blood Trace (Negative); Urine Ketones Negative (Negative); Urine Protein 30 (1+) mg/dL (Neg-Trace)
[2023-11-07 22:51] LABS: Bacteria Urine None Seen (None Seen); Hyaline Casts Urine 0-2 /LPF (0-2); RBC Urine 0-2 /HPF (0-2); Squamous Epithelial Cell Urine 0-2 /HPF (0-2); WBC Urine 0-5 /HPF (0-5)
[2023-11-07 23:37] LABS: Glucose, Whole Blood 383 mg/dL (60-115)
[2023-11-07] MEDS: Insulin Lispro 100 UNIT/ML 3 ML VIAL SUBCUT (23:43)
[2023-11-07 23:44] VITALS: BP 139/55; PULSE 65; RESP 18; TEMP 36.6; O2SAT 98
== END 2023-11-08 00:19 | disposition home or self-care (01) ==
PROVIDERS: Emergency Provider Internal Medicine; PCP Internal Medicine
DX: E11.65 Type 2 diabetes mellitus with hyperglycemia (principal); I11.0 Hypertensive heart disease with heart failure; I50.30 Unspecified diastolic (congestive) heart failure; J44.9 Chronic obstructive pulmonary disease, unspecified; J96.01 Acute respiratory failure with hypoxia; I48.91 Unspecified atrial fibrillation; Z79.899 Other long term (current) drug therapy; Z79.01 Long term (current) use of anticoagulants; Z87.891 Personal history of nicotine dependence; Z95.818 Presence of other cardiac implants and grafts
CPT/HCPCS: 36415; 80053; 81001; 82947; 83735; 83880; 84484; 85025; 93005; 96360; 99284; 99285

== ENCOUNTER → 2023-11-07 21:34 | Outpatient (BNV) | payer MEDICARE, MEDICAID, SELFPAY | PROVIDERS: Emergency Provider Internal Medicine; PCP Internal Medicine; Visit Provider Internal Medicine Cardiovascular Disease | DX: I49.1 Atrial premature depolarization (principal); R94.31 Abnormal electrocardiogram [ECG] [EKG] | CPT/HCPCS: 93010 ==

== ENCOUNTER 2023-11-30 02:33 | Inpatient (IN) | payer MEDICARE, MEDICAID, SELFPAY ==
[2023-11-30] VITALS (12 sets, daily range): BP systolic 128–162; BP diastolic 57–93; PULSE 51–93; RESP 14–24; TEMP 36.2–36.6; O2SAT 85–92; BMI 27.9
--- NOTE | ~2023-11-30 | XR_ITS ---
EXAMINATION: XR CHEST CLINICAL INFORMATION: Shortness of breath. COMPARISON: 06/22/2023. TECHNIQUE: Frontal view of the chest was obtained. FINDINGS: The lung volumes are low. There is bilateral mid to lower lung field increased markings/interstitial coarsening similar to previous. There is no new consolidation or pleural effusion. The bony structures and soft tissues are unremarkable. XR/XR chest 1V IMPRESSION: Low lung volumes. Bilateral mid to lower lung field increased markings/interstitial coarsening similar to previous. There is no focal lung consolidation or pleural effusion.
--- NOTE | ~2023-11-30 | XR_ITS ---
EXAMINATION: XR CHEST CLINICAL INFORMATION: Pain. Shortness of breath. COMPARISON: Previous of the same day. TECHNIQUE: Frontal view of the chest was obtained. FINDINGS: The cardiac mediastinal silhouette is stable. There is bilateral mid to lower lung field increased markings/interstitial coarsening similar to prior. There is no new consolidation or pleural effusion. The bony structures and soft tissues are unremarkable. XR/XR chest 1V IMPRESSION: Bilateral mid to lower lung field increased markings/interstitial coarsening similar to prior. No new consolidation or pleural effusion. No significant change.
--- NOTE | 2023-11-30 02:45 | ECG_ITS ---
Test Reason : SOB Blood Pressure : / mmHG Vent. Rate : 098 BPM Atrial Rate : 119 BPM P-R Int : 000 ms QRS Dur : 130 ms QT Int : 358 ms P-R-T Axes : 095 121 -13 degrees QTc Int : 457 ms Atrial fibrillation Right bundle branch block Abnormal ECG When compared with ECG of 07-NOV-2023 21:34, Atrial fibrillation Present Referred By: Patrizia Reyes Electronically Signed By:Tom Ojeda Referred By: Patrizia Reyes Electronically Signed By:
--- NOTE | 2023-11-30 03:01 | ED_ITS ---
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 He denies any fevers or chills. Patient is on 5 L of nasal cannula at baseline. Related Data Home Medications Medication Instructions Recorded Confirmed adalimumab 40 mg/0.4 mL 40 mg subcut Q2W 11/20/21 10/13/23 subcutaneous pen kit (Humira(CF) Pen) folic acid 400 mcg tablet 800 mcg PO DAILY 11/20/21 10/13/23 metoprolol tartrate 50 mg tablet 1 tab PO BID 11/20/21 10/13/23 rosuvastatin 10 mg tablet 1 tab PO BEDTIME 11/20/21 10/13/23 timolol maleate 0.5 % eye drops 1 drp ophthalmic (eye) DAILY 11/20/21 10/13/23 tramadol 50 mg tablet 1 tab PO BID PRN Pain, Moderate 11/20/21 10/13/23 aspirin 81 mg tablet,delayed 81 mg PO DAILY 04/18/23 10/13/23 release cholecalciferol (vitamin D3) 25 25 mcg PO DAILY 04/18/23 10/13/23 mcg (1,000 unit) capsule (Vitamin D3) fluticasone furoate 200 1 puff inhalation DAILY 04/18/23 10/13/23 mcg-vilanterol 25 mcg/dose inhalation powder (Breo Ellipta) nitroglycerin 0.4 mg sublingual 0.4 mg sublingual NEEDED PRN 04/18/23 10/13/23 tablet Chest Pain nintedanib 150 mg capsule (Ofev) 150 mg PO BID 06/23/23 10/13/23 omeprazole 40 mg capsule,delayed 40 mg PO DAILY@0630 06/23/23 10/13/23 release sacubitril 24 mg-valsartan 26 mg tab PO 10/13/23 10/13/23 tablet (Entresto) Previous Rx's Medication Instructions Recorded empagliflozin 10 mg tablet 10 mg PO DAILY #30 tabs 06/26/23 (Jardiance) furosemide 40 mg tablet 40 mg PO DAILY 30 days #30 tabs 06/26/23 levalbuterol HCl 1.25 mg/3 mL 1.25 mg (3 mL) inhalation Q4H PRN 06/26/23 solution for nebulization shortness of breath 30 days #72 mL methotrexate sodium 2.5 mg tablet 12.5 mg (5 x 2.5 mg) PO WE #20 tabs 06/26/23 prednisone 5 mg tablet 7.5 mg (1.5 x 5 mg) PO DAILY #10 06/26/23 tabs warfarin 2.5 mg tablet (Jantoven) 2.5 mg PO DAILY@1800 15 days #30 06/26/23 tabs insulin glargine 100 unit/mL (3 20 unit (0.2 mL) subcut QPM #15 mL 11/07/23 mL) subcutaneous pen (Lantus Solostar U-100 Insulin) Allergies Allergy/AdvReac Type Severity Reaction Status Date / Time No Known Allergies Allergy Unknown NOT Verified 11/30/23 02:44 APPLICABLE Review of Systems 2 Review of Systems: Pertinent positives and negatives as stated in [facility] Past Medical History Source: nursing notes reviewed Onset Date is defined in the Problem List Problems that require an onset date and time if occurred within 24 hrs of arrival to the ED Aortic Dissection and Rupture; Neurologic impairment; Cardiopulmonary Arrest; Endotracheal Intubation; Insertion or Replacement of Mechanical Circulatory Assist Device Medical History SVT (supraventricular tachycardia) CHF exacerbation Chronic anticoagulation Atrial fibrillation Chronic hypoxemic respiratory failure Hypertension Rheumatoid arthritis Lymphadenopathy ILD (interstitial lung disease) COPD exacerbation Surgical History Hx of colonoscopy Social History Social History Household Members: Spouse Housing: Condominium Do you presently have visiting nurse or other home services: No Alcohol intake: never Patient Tobacco Use Status: Former Tobacco user Quit Date: 23 years ago Tobacco use type: Cigarette Years Smoked: 40 Smoked in Last 30 Days: No e-Cigarette/Vaping Use: Former Use Use of substances other than those prescribed or required for medical reasons: No Advance Directives: Yes Advance Directives on File: Yes Advance Directives Date on File: 06/27/23 service: No Current occupational status: retired Physical Exam 2 Vital Signs: Vital Signs: Last Vital Signs Temp 97.6 F 11/30/23 05:33 Pulse 77 11/30/23 05:51 Resp 18 11/30/23 05:51 BP 162/93 H 11/30/23 05:51 Pulse Ox 90 L 11/30/23 05:51 O2 Del Method Nasal Cannula 11/30/23 05:51 O2 Flow Rate 5 11/30/23 05:51 BMI result Body Mass Index 27.9 VITAL SIGNS: Reviewed. GENERAL: Well developed, well nourished, in no acute distress. HEAD: Normocephalic/atraumatic EYES: PERRLA, EOMI EARS: Ext canals without abnormality NOSE: Nares patent bilateral OROPHARYNX: no oral lesions noted, posterior pharynx clear NECK: Supple, no adenopathy LUNGS: Tachypnea, bibasilar rales some mild expiratory wheeze SpO2<89> on 5 L via nasal cannula CARDIOVASCULAR: Regular rate and rhythm without noted murmurs, no JVD with 1+ bilateral lower pitting edema ABDOMEN: Soft, non-tender, non-distended with bowel sounds. MUSCULOSKELETAL: No tenderness, deformities, or effusions noted on gross inspection. EXTREMITIES: No cyanosis, clubbing or edema. SKIN: Inspection of the skin reveals no rashes NEUROLOGIC: Alert and oriented x 4. Strength and sensation to light touch were grossly intact x 4. Medications Administered Discontinued Medications Generic Name Dose Route Start Last Admin Trade Name Freq PRN Reason Stop Dose Admin Levalbuterol HCl 3.75 mg/ 0 mg 11/30/23 03:14 11/30/23 03:19 Ipratropium [place] 0.5 mg INHALE 11/30/23 03:15 1.25 dose ONCE ONE Administration Furosemide 60 mg 11/30/23 03:41 11/30/23 03:55 Furosemide 100 Mg/10 Ml Vial IVPUSH 11/30/23 03:42 60 mg ONCE ONE Administration Protocol Methylprednisolone Sodium Succinate 125 mg 11/30/23 02:58 11/30/23 03:05 Methylprednisolone Sod Succ 125 Mg/2 Ml Vial IVPUSH 11/30/23 02:59 125 mg ONCE ONE Administration Medical Decision Making Medical Decision Making MDM Narrative: 78-year-old male with history and clinical presentation, DDX: Chronic lung diseases exacerbation, CHF exacerbation, viral illness, pneumonia. I reviewed all investigations and hematologic indices are negative for leukocytosis or left shift, there is a stable normocytic anemia and no thrombocytopenia. Patient is afebrile and chest x-ray does not demonstrate any infiltrate. Coagulase studies demonstrate INR-2.7 and VBG does not demonstrate respiratory acidosis or hypercapnia. Chemistry indices are chronically stable with CKD and no electrolyte derangements. BNP is noted to be significantly elevated at 3000 patient received 60 mg of Lasix with good response and on re- evaluation he reports significant improvement in breathing. A plan phosphatase is noted be mildly elevated but patient has no abdominal discomfort. Viral serology negative for influenza/RSV/COVID. Chest x-ray, both, do not demonstrate any infiltrate and otherwise my interpretation is in agreement with radiology's impression. EKG does not demonstrate any acute changes. On re-evaluation patient is feeling much improved, he is not febrile and no indication for antibiotics at this time, derangements of hypoxia and elevated heart rate associated with CHF exacerbation. However, patient did receive a breathing treatment and steroids. Discussed case with inpatient hospitalist who accepts admission. Differential Diagnosis Differential Diagnoses: The differential diagnosis associated with the presentation includes Please see the discussion above Admission/Observation Consideration of admission/observation: Escalation of care including admission/observation considered Please see the discussion above Consult Healthcare Provider Management of the patient was discussed with: Hospitalist Please see the discussion above Lab Data MDM Lab Attestation statement: I reviewed the patient's lab results. Please see the discussion above 11/30/23 02:58 11/30/23 02:58 Labs: Lab Results 11/30/23 11/30/23 Range/Units 02:58 03:04 WBC 9.7 (4.8-10.8) X10*3/uL RBC 4.58 L (4.60-5.80) X10*6/uL Hgb 12.2 L (14.0-18.0) g/dl Hct 39.3 L (42.0-52.0) % MCV 85.8 (80.0-98.0) fL MCH 26.6 L (27.0-33.0) pg MCHC 31.0 (31.0-36.0) g/dl RDW 18.4 H (11.0-16.0) % Plt Count 262 D (160-400) X10*3/uL MPV 10.9 (9.4-12.4) fL Immature Gran % (Auto) 0.4 (0.0-0.4) % Neut % (Auto) 65.7 (45-73) % Lymph % (Auto) 22.5 (20-40) % [place] % (Auto) 10.1 (2-11) % Eos % (Auto) 0.9 (0-4) % Baso % (Auto) 0.4 (0-2) % Lymph # (Auto) 2.2 (1.2-4.9) X10*3/uL [place] # (Auto) 1.0 (0.1-1.2) X10*3/uL Eos # (Auto) 0.1 (0.0-0.4) X10*3/uL Baso # (Auto) 0.0 (0.0-0.2) X10*3/uL Abs Immat Gran (auto) 0.04 H (0.00-0.03) X10*3/uL Absolute Neuts (auto) 6.3 (2.0-8.3) x10*3/uL Absolute Nucleated RBC 0.030 H (0.0-0.012) X10*3/uL Nucleated RBC % (auto) 0.3 H (0.0-0.2) /100WBC PT 32.6 H D (11.1-13.3) SEC INR 2.7 H (0.9-1.1) VBG pH 7.40 (7.32-7.43) VBG pCO2 41 mmHg VBG pO2 36 mmHg VBG HCO3 25 (22-26) mmol/L VBG O2 Saturation 51.0 % VBG Base Excess 1.0 mmol/L Sodium 140 (135-145) mmol/L Potassium 3.8 (3.3-5.1) mmol/L Chloride 103 (96-108) mmol/L Carbon Dioxide 24 (22-29) mmol/L Anion Gap 17 (12-20) BUN 29 H (9-16) mg/dL Creatinine 1.95 H (0.5-1.4) mg/dL Estim Creat Clear Calc 35.3 Estimated GFR 33 Random Glucose 152 H (60-115) mg/dL Calcium 9.9 (8.4-10.2) mg/dL Total Bilirubin 1.0 (0.0-1.0) mg/dL AST 34 (5-37) U/L ALT 40 (0-40) U/L Alkaline Phosphatase 273 H (39-117) U/L B-Natriuretic Peptide 3000 H (<100) pg/mL Total Protein 8.0 (6.5-8.0) g/dL Albumin 3.9 (3.5-5.0) g/dL Influenza Type A (PCR) NEGATIVE (Negative) Influenza Type B (PCR) NEGATIVE (Negative) RSV RNA Qual (PCR) NEGATIVE (Negative) SARS-CoV-2 RNA (RT-PCR) NEGATIVE (Negative) Independent Interpretation I performed an independent interpretation of an: EKG Interpretation: Atrial fibrillation, HR-98, no STEMI, QTC within normal limits. No acute changes when compared to prior on 11/07/2023. Radiology Impression Discussion of test interpretation with radiology: I have reviewed the radiologist's reading. Radiologist Impression: Please see the discussion above External Record Review External record reviewed: Outpatient record, Prior outpatient labs and Prior outpatient radiology Chronic Conditions Patient?s care impacted by: Diabetes, Hypertension and Other COPD, atrial fibrillation, chronic anticoagulation Critical Care Time Critical Care Time Critical Care Time: Yes Total Critical Care Time: 60 Attestation: I personally attest to this time spent taking care of the patient. Discharge Plan Discharge Clinical Impression: Acute hypoxemic respiratory failure, COPD (chronic obstructive pulmonary disease), Acute exacerbation of CHF (congestive heart failure) Patient Disposition: Admitted As Inpatient
[2023-11-30] MEDS: methylPREDNISolone Sod Succ 125 MG/2 ML VIAL IVPUSH (03:05)
[2023-11-30 03:06] LABS: MANUAL DIFF FLAG NO
[2023-11-30 03:10] LABS: Basophils Percent Auto 0.4 % (0-2); Eosinophils Absolute Auto 0.1 X10*3/uL (0.0-0.4); Eosinophils Percent Auto 0.9 % (0-4); Hematocrit 39.3 % (42.0-52.0); Hemoglobin 12.2 g/dl (14.0-18.0); Imm Gran Abs Auto 0.04 X10*3/uL (0.00-0.03); Imm Gran Pct Auto 0.4 % (0.0-0.4); Lymphocytes Absolute Auto 2.2 X10*3/uL (1.2-4.9); Lymphocytes Percent Auto 22.5 % (20-40); Mean Corpuscular Hemoglobin 26.6 pg (27.0-33.0); Mean Corpuscular Volume 85.8 fL (80.0-98.0); Mean Platelet Volume 10.9 fL (9.4-12.4); Monocytes Percent Auto 10.1 % (2-11); NRBC Pct Auto 0.3 /100WBC (0.0-0.2); Neutrophils Absolute Auto 6.3 x10*3/uL (2.0-8.3); Neutrophils Percent Auto 65.7 % (45-73); Platelet Count 262 X10*3/uL (160-400); Red Blood Count 4.58 X10*6/uL (4.60-5.80); Red Cell Distribution Width 18.4 % (11.0-16.0); White Blood Count 9.7 X10*3/uL (4.8-10.8)
--- NOTE | 2023-11-30 03:14 | PC.NURSE ---
pt radha from home reporting one hour of shortness of breath. pt reports he is on 5L nasal cannula baseline for a hx of COPD. pt lung sounds clear bilaterally. pt denies pain at this time. pt denies n/v/d. pt gave self updraft at home with albuterol. provider at bedside discussing pt care.
[2023-11-30] MEDS: levalbuterol HCL 3.75 MG, Ipratropium Bromide 0.5 MG INHALE (03:19)
[2023-11-30 03:20] LABS: INTERNATIONAL NORM RATIO 2.7 (0.9-1.1); Prothrombin Time 32.6 SEC (11.1-13.3)
[2023-11-30 03:21] LABS: VBG HCO3 25 mmol/L (22-26); VBG pCO2 41 mmHg; VBG pO2 36 mmHg
[2023-11-30 03:24] LABS: Alanine Aminotransferase 40 U/L (0-40); Albumin Level 3.9 g/dL (3.5-5.0); Alkaline Phosphatase 273 U/L (39-117); Anion Gap 17 (12-20); Aspartate Amino Transferase 34 U/L (5-37); Blood Urea Nitrogen 29 mg/dL (9-16); Calcium 9.9 mg/dL (8.4-10.2); Carbon Dioxide 24 mmol/L (22-29); Chloride 103 mmol/L (96-108); Creatinine Clr Calc Pharmacy 35.3; Estimated Glomerular Filt Rate 33; Glucose Random 152 mg/dL (60-115); Potassium 3.8 mmol/L (3.3-5.1); Sodium 140 mmol/L (135-145)
[2023-11-30 03:27] LABS: Venous Blood Gas Refer to POC result
[2023-11-30 03:31] LABS: B Type Natriuretic Peptide 3000 pg/mL (<100)
[2023-11-30 03:50] LABS: Influenza A PCR NEGATIVE (Negative); Influenza B PCR NEGATIVE (Negative); Resp Syncy Virus RNA Qual PCR NEGATIVE (Negative); SARS COV2 PCR INHOUSE NEGATIVE (Negative)
[2023-11-30] MEDS: Furosemide 100 MG/10 ML VIAL 60 MG IVPUSH (03:55)
--- NOTE | 2023-11-30 03:58 | PC.NURSE ---
pt medicated per jan. pt reporting right shoulder pain from an onset diagnosis of arthritis. provider aware.
--- NOTE | 2023-11-30 04:28 | PC.NURSE ---
xray at bedside to complete chest xray.
--- NOTE | 2023-11-30 04:42 | PC.NURSE ---
pt sating 83-87% on 5L nasal cannula, at bedside assessing pt.
--- NOTE | 2023-11-30 05:41 | PM.IMHP ---
History of Present Illness Date of Service: 11/30/23 Chief Complaint: Dyspnea This is a 78-year-old male with pertinent history of chronic hypoxemic respiratory failure due to COPD, congestive heart failure with preserved ejection fraction, paroxysmal atrial fibrillation on Coumadin, rheumatoid arthritis presents to the emergency department for evaluation of dyspnea. Patient states that his dyspnea started 2 days prior to presentation and has been progressive. Also admits orthopnea and lower leg swelling. States that he is compliant with his home Lasix. No cough, fever or chills. No chest discomfort, palpitations, abdominal pain, changes in urinary or bowel habits. States he uses 4 L supplemental oxygen at home. In the emergency department, BNP found to be elevated and patient initiated on IV Lasix. Patient requiring 5 L supplemental oxygen. Review of Systems Constitutional: Constitutional: Reports fatigue and Reports weakness Cardiovascular: Cardiovascular: Reports pedal edema, Reports dyspnea on exertion and Reports orthopnea Respiratory: Respiratory: Reports dyspnea on exertion Gastrointestinal: Gastrointestinal: Reports no additional gastrointestinal complaints Genitourinary: Genitourinary: Reports no additional male genitourinary complaints Neurologic: Reports weakness Endocrine: Endocrine: Reports fatigue [facility] [place] Medical History SVT (supraventricular tachycardia) CHF exacerbation Chronic anticoagulation Atrial fibrillation Chronic hypoxemic respiratory failure Hypertension Rheumatoid arthritis Lymphadenopathy ILD (interstitial lung disease) COPD exacerbation Pertinent family history: No family history of early CAD Surgical History Hx of colonoscopy Social History Household Members: [facility] Do you presently have visiting nurse or other home services: No Alcohol intake: never Patient Tobacco Use Status: Former Tobacco user Quit Date: 23 years ago Tobacco use type: Cigarette Years Smoked: 40 Smoked in Last 30 Days: No e-Cigarette/Vaping Use: Former Use Use of substances other than those prescribed or required for medical reasons: No Advance Directives: Yes Advance Directives on File: Yes Advance Directives Date on File: 06/27/23 service: No Current occupational status: retired Meds Allergies Allergy/AdvReac Type Severity Reaction Status Date / Time No Known Allergies Allergy Unknown NOT Verified 11/30/23 02:44 APPLICABLE Home Medications Medication Instructions Recorded Confirmed Last Taken Type adalimumab 40 mg/0.4 mL 40 mg subcut Q2W 11/20/21 10/13/23 11/13/21 History subcutaneous pen kit (Humira(CF) Pen) folic acid 400 mcg tablet 800 mcg PO DAILY 11/20/21 10/13/23 Unknown History metoprolol tartrate 50 mg tablet 1 tab PO BID 11/20/21 10/13/23 Unknown History rosuvastatin 10 mg tablet 1 tab PO BEDTIME 11/20/21 10/13/23 Unknown History timolol maleate 0.5 % eye drops 1 drp ophthalmic (eye) DAILY 11/20/21 10/13/23 Unknown History tramadol 50 mg tablet 1 tab PO BID PRN Pain, Moderate 11/20/21 10/13/23 06/23/23 History aspirin 81 mg tablet,delayed 81 mg PO DAILY 04/18/23 10/13/23 Unknown History release cholecalciferol (vitamin D3) 25 25 mcg PO DAILY 04/18/23 10/13/23 Unknown History mcg (1,000 unit) capsule (Vitamin D3) fluticasone furoate 200 1 puff inhalation DAILY 04/18/23 10/13/23 Unknown History mcg-vilanterol 25 mcg/dose inhalation powder (Breo Ellipta) nitroglycerin 0.4 mg sublingual 0.4 mg sublingual NEEDED PRN 04/18/23 10/13/23 Unknown History tablet Chest Pain nintedanib 150 mg capsule (Ofev) 150 mg PO BID 06/23/23 10/13/23 Unknown History omeprazole 40 mg capsule,delayed 40 mg PO DAILY@0630 06/23/23 10/13/23 Unknown History release sacubitril 24 mg-valsartan 26 mg tab PO 10/13/23 10/13/23 Unknown History tablet (Entresto) Physical Exam Vital Signs and Narrative: Vital Signs: Last Vital Signs Temp 97.6 F 11/30/23 05:33 Pulse 84 11/30/23 05:33 Resp 17 11/30/23 05:33 BP 147/57 H 11/30/23 05:33 Pulse Ox 85 L 11/30/23 05:33 O2 Del Method Nasal Cannula 11/30/23 05:33 O2 Flow Rate 5 11/30/23 05:33 BMI result Body Mass Index 27.9 Elderly male lying in bed in mild distress on supplemental oxygen Neck supple, + JVD Regular rate and rhythm, S1-S2 heard Bilateral crackles present Abdomen soft nontender, no guarding, no rigidity Patient is awake, alert and oriented to self, place, time and person ; no focal motor deficit Psych: Normal mood Bilateral pedal edema Results Labs 11/30/23 02:58 11/30/23 02:58 Labs: Laboratory Results - last 24 hr 11/30/23 11/30/23 02:58 03:04 MCV 85.8 MCH 26.6 L MCHC 31.0 RDW 18.4 H Plt Count 262 D MPV 10.9 Immature Gran % (Auto) 0.4 Neut % (Auto) 65.7 Lymph % (Auto) 22.5 [place] % (Auto) 10.1 Eos % (Auto) 0.9 Baso % (Auto) 0.4 Lymph # (Auto) 2.2 [place] # (Auto) 1.0 Eos # (Auto) 0.1 Baso # (Auto) 0.0 Abs Immat Gran (auto) 0.04 H Absolute Neuts (auto) 6.3 Absolute Nucleated RBC 0.030 H Nucleated RBC % (auto) 0.3 H PT 32.6 H D INR 2.7 H VBG pH 7.40 VBG pCO2 41 VBG pO2 36 VBG HCO3 25 VBG O2 Saturation 51.0 VBG Base Excess 1.0 Anion Gap 17 Estim Creat Clear Calc 35.3 Estimated GFR 33 Random Glucose 152 H Calcium 9.9 Total Bilirubin 1.0 AST 34 ALT 40 Alkaline Phosphatase 273 H B-Natriuretic Peptide 3000 H Total Protein 8.0 Albumin 3.9 Influenza Type A (PCR) NEGATIVE Influenza Type B (PCR) NEGATIVE RSV RNA Qual (PCR) NEGATIVE SARS-CoV-2 RNA (RT-PCR) NEGATIVE Imaging Radiologist's Impressions: Impressions Chest X-Ray 11/30/23 03:45 IMPRESSION: Low lung volumes. Bilateral mid to lower lung field increased markings/interstitial coarsening similar to previous. There is no focal lung consolidation or pleural effusion. Assessment and Plan (1) Acute respiratory failure with hypoxia: Status: Acute (2) Acute on chronic right heart failure: Status: Acute Plan This is a 78-year-old male with pertinent history of chronic hypoxemic respiratory failure due to COPD, congestive heart failure with preserved ejection fraction, paroxysmal atrial fibrillation on Coumadin, rheumatoid arthritis presents to the emergency department for evaluation of dyspnea. #. Acute on chronic hypoxemic respiratory failure due to acute exacerbation of congestive heart failure: Will admit patient and initiate IV diuresis. Strict I's and O's. Low-salt diet. Obtaining echocardiogram. Monitor oxygen saturation and wean as tolerated, maintain oxygen saturation greater than 88%. Also on Januvia #. Paroxysmal atrial fibrillation: On Coumadin #. Essential hypertension: Continue home antihypertensives #. Mixed hyperlipidemia: On statin #. Chronic kidney disease: Creatinine at baseline. Continue to monitor urine output Med rec pending DVT prophylaxis: Coumadin Full code Admit as inpatient and will require two night minimum hospital stay for supplemental oxygen, IV diuresis (as above), which is not possible in a lesser acute setting. Quality Stroke Does the patient have a stroke diagnosis?: No VTE Prior VTE?: No VTE Risk Level:: Medical - moderate - high VTE Device Contraindication: Treatment Not Indicated VTE Drug Contraindication: N/A - Med Ordered
--- NOTE | 2023-11-30 07:30 | PC.NURSE ---
Report taken from Amy HOFFMAN assumed care of pt at 0700. Pt A&Ox3 skin pwd respirations even unlabored, Spo2 85-87% on 5L NC-baseline supplemental O2 level per pt. MD Souza notified of continued low O2, new order for high flow O2, respiratory to bedside. Pt speaking in full clear sentences, offers no complaints other than chronic arthritis pain to right shoulder Awaiting bed assignment for admission, aware of plan of care.
--- NOTE | 2023-11-30 08:04 | PC.NURSE ---
Pt spO2 increased to 92% on high flow. Continue to offer no complaints. Hospitalist to bedside for consult.
--- NOTE | 2023-11-30 08:35 | MHC.CM.PN ---
Patient is unavailable; CM spoke with /HCP/Marissa @ [phone] and addressed IMM with her (original will be mailed certified letter to Marissa and a copy will be placed on the chart). Patient lives in an apartment with his /HCP and he uses a cane to assist with mobility. Patient has a [employer] 1 hour/day and he obtains his home O2 from [facility]. Home/resume said services is the plan and CM has initiated and will follow for dc planning. PCP is Dr. Moris Machado.
--- NOTE | 2023-11-30 08:58 | PHA.MEDREC ---
Pharmacy Consult ? Medication Reconciliation Pharmacy has completed the medication reconciliation.Called who knew medications
--- NOTE | 2023-11-30 09:17 | PC.NURSE ---
Pt medicated per JAN. 100% of breakfast tray consumed. Remains 92% on 10L high flow O2, NAD, offers no complaints. Continues to await bed assignment for admission, will continue to monitor.
--- NOTE | 2023-11-30 10:37 | PC.NURSE ---
Echo at beside.
--- NOTE | 2023-11-30 13:00 | PC.NURSE ---
Pt reporting right shoulder pain 7/10, medicated per MAR. Offers no additional complaints. VSS. NAD. Visiting with spouse at bedside.
--- NOTE | 2023-11-30 13:08 | PM.EVENT ---
Event Note Date of Service: 11/30/23 Event Note: Patient admitted 2 hours earlier, seen and examined with no change in A/P per H and P from this morning. This is a 78-year-old male with pertinent history of chronic hypoxemic respiratory failure due to COPD, congestive heart failure with preserved ejection fraction, paroxysmal atrial fibrillation on Coumadin, rheumatoid arthritis presents to the emergency department for evaluation of dyspnea. #. Acute on chronic hypoxemic respiratory failure due to acute exacerbation of congestive heart failure: Strict I's and O's. Low-salt diet. echocardiogram. Monitor oxygen saturation and wean as tolerated, maintain oxygen saturation greater than 88%. Also on Januvia. Cardiology consult in light of severity #. Paroxysmal atrial fibrillation: ccontinue metoprolol, Coumadin #. Essential hypertension: Continue home antihypertensives #. Mixed hyperlipidemia: On statin #. Chronic kidney disease: Creatinine at baseline. Continue to monitor urine output Med rec done DVT prophylaxis: Coumadin Full code Time Spent With Patient Time: Total time managing care of this patient today ____ minutes.
--- NOTE | 2023-11-30 15:07 | PC.NURSE ---
Report to floor, awaiting transport, pt exits my care at this time.
[2023-12-01] VITALS (7 sets, daily range): BP systolic 141–164; BP diastolic 77–90; PULSE 52–64; RESP 15–19; TEMP 36–36.5; O2SAT 91–96
[2023-12-01 06:21] LABS: MANUAL DIFF FLAG NO
[2023-12-01 06:25] LABS: Basophils Percent Auto 0.1 % (0-2); Eosinophils Percent Auto 0.1 % (0-4); Hematocrit 37.2 % (42.0-52.0); Hemoglobin 11.8 g/dl (14.0-18.0); Imm Gran Abs Auto 0.06 X10*3/uL (0.00-0.03); Imm Gran Pct Auto 0.6 % (0.0-0.4); Lymphocytes Absolute Auto 1.1 X10*3/uL (1.2-4.9); Lymphocytes Percent Auto 10.1 % (20-40); Mean Corpuscular HGB Conc 31.7 g/dl (31.0-36.0); Mean Corpuscular Hemoglobin 27.3 pg (27.0-33.0); Mean Corpuscular Volume 85.9 fL (80.0-98.0); Mean Platelet Volume 12.1 fL (9.4-12.4); Monocytes Percent Auto 9.4 % (2-11); NRBC Pct Auto 0.3 /100WBC (0.0-0.2); Neutrophils Absolute Auto 8.7 x10*3/uL (2.0-8.3); Neutrophils Percent Auto 79.7 % (45-73); Platelet Count 258 X10*3/uL (160-400); Red Blood Count 4.33 X10*6/uL (4.60-5.80); Red Cell Distribution Width 18.5 % (11.0-16.0); White Blood Count 10.9 X10*3/uL (4.8-10.8)
[2023-12-01 06:43] LABS: INTERNATIONAL NORM RATIO 2.7 (0.9-1.1); Prothrombin Time 32.9 SEC (11.1-13.3)
[2023-12-01 06:46] LABS: Anion Gap 19 (12-20); Blood Urea Nitrogen 40 mg/dL (9-16); Carbon Dioxide 25 mmol/L (22-29); Chloride 102 mmol/L (96-108); Estimated Glomerular Filt Rate 40; Glucose Random 207 mg/dL (60-115); Potassium 4.7 mmol/L (3.3-5.1); Sodium 141 mmol/L (135-145)
--- NOTE | 2023-12-01 09:07 | HO.PM.IMPN ---
Subjective Subjective Date of Service: 12/01/23 Interval History: Seen in f/u for heart failure exacerbation, acute on chronic resp failure interval history: patient is better, feels more comfortable, transitioned from hi flow to nasal canula Physical Exam Vital Signs: Vital Signs: Last Vital Signs Temp 97.1 F 12/01/23 07:28 Pulse 64 12/01/23 07:36 Resp 16 12/01/23 07:36 BP 163/77 H 12/01/23 07:28 Pulse Ox 96 12/01/23 07:28 O2 Del Method High Flow Nasal C annula 12/01/23 07:28 O2 Flow Rate 35 12/01/23 07:28 FiO2 40 12/01/23 07:28 BMI result Body Mass Index 27.9 Const: Other: General: AO X 3, no acute distress Resp: CTA bilateral CVS: S1,S2, irregular, iregular, no jvd, trace leg edema GI: +BS, NT, no distention Skin: No rash Neuro: motor grossly intact Psych: appropriate affect Objective Data Active Medications Acetaminophen (Acetaminophen 325 Mg Tablet) 650 mg PO Q6H PRN PRN Reason: Pain, Mild (Pain Scale 1-3) Aspirin (Aspirin Enteric Coated 81 Mg Tablet.) 81 mg PO DAILY [facility] Last Admin: 12/01/23 08:25 Dose: 81 mg Documented By: GRACIE Atorvastatin Calcium (Atorvastatin Calcium 40 Mg Tablet) 40 mg PO BEDTIME [facility] Last Admin: 11/30/23 21:18 Dose: 40 mg Documented By: EFRAIN Empagliflozin (Empagliflozin 25 Mg Tablet) 25 mg PO DAILY [facility] Last Admin: 12/01/23 08:25 Dose: 25 mg Documented By: GRACIE Fluticasone/Vilanterol (Fluticasone/Vilanterol 200/25 Blst.W.Dev) 1 puff INHALE RDAILY [facility] Last Admin: 12/01/23 07:33 Dose: 1 puff Documented By: VY Folic Acid (Folic Acid 1 Mg Tablet) 1 mg PO DAILY [facility] Last Admin: 12/01/23 08:24 Dose: 1 mg Documented By: GRACIE Furosemide (Furosemide 40 Mg/4 Ml Vial) 40 mg IVPUSH BID@0800,1700 [facility]; Protocol Last Admin: 12/01/23 08:25 Dose: 40 mg Documented By: GRACIE Insulin Glargine (Insulin Glargine,Hum.Rec.Anlog 100 Unit/Ml 10 Ml Vial) 20 unit SUBCUT BEDTIME [facility] Last Admin: 11/30/23 21:18 Dose: 20 unit Documented By: EFRAIN Levalbuterol HCl (Levalbuterol Hcl 1.25 Mg/3 Ml Vial.Neb) 1.25 mg INHALE Q4H PRN PRN Reason: shortness of breath Melatonin (Melatonin 3 Mg Tablet) 6 mg PO BEDTIME PRN PRN Reason: Insomnia Metoprolol Tartrate (Metoprolol Tartrate 50 Mg Tablet) 50 mg PO BID [facility]; Protocol Last Admin: 12/01/23 08:24 Dose: 50 mg Documented By: GRACIE Nitroglycerin (Nitroglycerin 0.4 Mg Tab.Subl) 0.4 mg SUBLINGUAL Q5M PRN PRN Reason: Chest Pain Omeprazole (Omeprazole 40 Mg Capsule.Dr) 40 mg PO DAILY@0630 [facility] Last Admin: 12/01/23 05:40 Dose: 40 mg Documented By: JOSEPH Ondansetron HCl (Ondansetron Hcl 4 Mg/2 Ml Vial) 4 mg IVPUSH Q8H PRN PRN Reason: Nausea and Vomiting Prednisone (Prednisone 2.5 Mg Tablet) 7.5 mg PO DAILY [facility] Last Admin: 12/01/23 08:24 Dose: 7.5 mg Documented By: GRACIE Sacubitril/Valsartan (Sacubitril/Valsartan 1 Tab Tablet) 1 tab PO BID [facility]; Protocol Last Admin: 12/01/23 08:25 Dose: 1 tab Documented By: GRACIE Sodium Chloride (0.9 % Sodium Chloride Flush 3 Ml Syringe) 3 ml IVFLUSH QSHIFT [facility] Last Admin: 12/01/23 08:26 Dose: 3 ml Documented By: GRACIE Timolol Maleate (Timolol Maleate 0.5 % Oph [place] 5 Ml Drbtl) 1 drop EYE-BOTH DAILY [facility] Last Admin: 12/01/23 08:25 Dose: 1 drop Documented By: GRACIE Tramadol HCl (Tramadol Hcl 50 Mg Tablet) 50 mg PO BID PRN PRN Reason: Pain, Moderate Last Admin: 11/30/23 12:59 Dose: 50 mg Documented By: DARIUSZ Vitamin D (Cholecalciferol (Vitamin D3) 25 Mcg Tablet) 25 mcg PO DAILY [facility] Last Admin: 12/01/23 08:25 Dose: 25 mcg Documented By: GRACIE Warfarin Sodium (Warfarin Sodium 5 Mg Tablet) 5 mg PO DAILY@1800 [facility] Last Admin: 11/30/23 18:18 Dose: 5 mg Documented By: LUIS Labs 12/01/23 05:35 12/01/23 05:35 Labs: Laboratory Results - last 24 hr 11/30/23 12/01/23 20:32 05:35 MCV 85.9 MCH 27.3 MCHC 31.7 RDW 18.5 H Plt Count 258 MPV 12.1 Immature Gran % (Auto) 0.6 H Neut % (Auto) 79.7 H Lymph % (Auto) 10.1 L [place] % (Auto) 9.4 Eos % (Auto) 0.1 Baso % (Auto) 0.1 Lymph # (Auto) 1.1 L [place] # (Auto) 1.0 Eos # (Auto) 0.0 Baso # (Auto) 0.0 Abs Immat Gran (auto) 0.06 H Absolute Neuts (auto) 8.7 H Absolute Nucleated RBC 0.030 H Nucleated RBC % (auto) 0.3 H PT 32.9 H INR 2.7 H Anion Gap 19 Estim Creat Clear Calc 41.0 Estimated GFR 40 POC Glucose 268 H Random Glucose 207 H Calcium 10.0 Assessment and Plan (1) Acute exacerbation of CHF (congestive heart failure): Status: Acute (2) Presence of CardioMEMS HF system: Status: Acute (3) Acute hypoxemic respiratory failure: Status: Acute (4) COPD (chronic obstructive pulmonary disease): Status: Acute Plan 78-year-old male with past medical history of HFpEF s/p CardioMEMS, ashmta/COPD on 4 liters of O2 at baseline, PAF, RA on chronic steroid, HTN admitted due to acute on chronic hypoxic resp failure due to exacerbation of heart failure acute on chronic hypoxic respiratory failure d/t exacerbation of CHF on top of copd, he required hiflow but is doing better -continue IV Lasix, I/O, weight, cardiology to weight in, continue entresto, jardiance, wean of Hiflow. goal of O2 sat 88 to 92 -Transition to oral Lasix later today Paroxysmal atrial fibrillation, controlled on metoprolol, OAC with coumadin, goal of INR 2 to 2 COPD with chronic resp failure on 4 liters at home, no exacerbation RA--continue Prednisone HTN--continue Metoprolol Diabetes--continue Lantus, SSI, diabetic diet HLD--statin CKD, Stage 3B Moderate CKD (GFR = 30-44 mL/min)--Stable DVT prophylaxis--Coumadin Requires ongoing inpatient hospital stay for further management of respiratory failure/CHF - on IV diuretics Quality Stroke Does the patient have a stroke diagnosis?: No VTE Prior VTE?: No VTE Risk Level:: Medical - moderate - high VTE Device Contraindication: Treatment Not Indicated VTE Drug Contraindication: N/A - Med Ordered
--- NOTE | 2023-12-01 12:17 | PM.CNCAR ---
History of Present Illness History of Present Illness Date of Service: 12/01/23 Requesting physician: Deon Cabral Chief complaint: Dyspnea, Pulm HTN Narrative: 78-year-old gentleman who is presenting with shortness of breath and congestive heart failure. He has known history of diastolic heart failure as well as severe pulmonary hypertension due to underlying COPD. He is on supplemental oxygen at home. He said he was getting short of breath over the last few days and decided come to the ER. The ER he was noticed to be in congestive heart failure and was admitted for further assessment. He has atrial fibrillation and is currently rate controlled. He has a right bundle-branch block on the EKG. He had a transthoracic echocardiogram performed yesterday which showed normal LVEF of 60 65% but severely increased right ventricular cavity size and decreased RV function. He also had severe pulmonary hypertension with PASP of 75 mm mercury. He had a D shaped LV cavity. Clinically he is saying that since receiving IV diuretics he is feeling better. He is on supplemental oxygen. He still appears to be quite overloaded by examination. [facility] Past Medical History Medical History SVT (supraventricular tachycardia) CHF exacerbation Chronic anticoagulation Atrial fibrillation Chronic hypoxemic respiratory failure Hypertension Rheumatoid arthritis Lymphadenopathy ILD (interstitial lung disease) COPD exacerbation Surgical History Surgical History Hx of colonoscopy Social History Social History Household Members: Spouse Housing: Apartment Do you presently have visiting nurse or other home services: Yes ([employer] 3hrs/daily) Alcohol intake: never Patient Tobacco Use Status: Former Tobacco user Quit Date: 23 years ago Tobacco use type: Cigarette Years Smoked: 40 e-Cigarette/Vaping Use: Former Use Advance Directives Date on File: 06/27/23 service: No Current occupational status: retired Meds Allergies Allergy/AdvReac Type Severity Reaction Status Date / Time No Known Allergies Allergy Unknown NOT Verified 11/30/23 02:44 APPLICABLE Active Medications: Current Medications Acetaminophen (Acetaminophen 325 Mg Tablet) 650 mg PO Q6H PRN PRN Reason: Pain, Mild (Pain Scale 1-3) Aspirin (Aspirin Enteric Coated 81 Mg Tablet.) 81 mg PO DAILY [facility] Last Admin: 12/01/23 08:25 Dose: 81 mg Atorvastatin Calcium (Atorvastatin Calcium 40 Mg Tablet) 40 mg PO BEDTIME [facility] Last Admin: 11/30/23 21:18 Dose: 40 mg Dextrose (Dextrose 50 % 25 Gm/50 Ml Syringe) 25 gm IVPUSH Q15M PRN; Protocol PRN Reason: per Hypoglycemia Standing Ord. Empagliflozin (Empagliflozin 25 Mg Tablet) 25 mg PO DAILY [facility] Last Admin: 12/01/23 08:25 Dose: 25 mg Fluticasone/Vilanterol (Fluticasone/Vilanterol 200/25 Blst.W.Dev) 1 puff INHALE RDAILY [facility] Last Admin: 12/01/23 07:33 Dose: 1 puff Folic Acid (Folic Acid 1 Mg Tablet) 1 mg PO DAILY [facility] Last Admin: 12/01/23 08:24 Dose: 1 mg Furosemide (Furosemide 40 Mg Tablet) 40 mg PO BID@0900,1800 [facility]; Protocol Glucose (Glucose Gel 15 Gm Gel..Gram.) 15 gm PO Q15M PRN; Protocol PRN Reason: per Hypoglycemia Standing Ord. Insulin Glargine (Insulin Glargine,Hum.Rec.Anlog 100 Unit/Ml 10 Ml Vial) 20 unit SUBCUT BEDTIME [facility] Last Admin: 11/30/23 21:18 Dose: 20 unit Insulin Human Lispro (Insulin Lispro 100 Unit/Ml 3 Ml Vial) 0 unit SUBCUT QIDACHS [facility]; Protocol Levalbuterol HCl (Levalbuterol Hcl 1.25 Mg/3 Ml Vial.Neb) 1.25 mg INHALE Q4H PRN PRN Reason: shortness of breath Melatonin (Melatonin 3 Mg Tablet) 6 mg PO BEDTIME PRN PRN Reason: Insomnia Metoprolol Tartrate (Metoprolol Tartrate 50 Mg Tablet) 50 mg PO BID [facility]; Protocol Last Admin: 12/01/23 08:24 Dose: 50 mg Nitroglycerin (Nitroglycerin 0.4 Mg Tab.Subl) 0.4 mg SUBLINGUAL Q5M PRN PRN Reason: Chest Pain Omeprazole (Omeprazole 40 Mg Capsule.Dr) 40 mg PO DAILY@0630 [facility] Last Admin: 12/01/23 05:40 Dose: 40 mg Ondansetron HCl (Ondansetron Hcl 4 Mg/2 Ml Vial) 4 mg IVPUSH Q8H PRN PRN Reason: Nausea and Vomiting Prednisone (Prednisone 2.5 Mg Tablet) 7.5 mg PO DAILY [facility] Last Admin: 12/01/23 08:24 Dose: 7.5 mg Sacubitril/Valsartan (Sacubitril/Valsartan 1 Tab Tablet) 1 tab PO BID [facility]; Protocol Last Admin: 12/01/23 08:25 Dose: 1 tab Sodium Chloride (0.9 % Sodium Chloride Flush 3 Ml Syringe) 3 ml IVFLUSH QSHIFT [facility] Last Admin: 12/01/23 08:26 Dose: 3 ml Timolol Maleate (Timolol Maleate 0.5 % Oph [place] 5 Ml Drbtl) 1 drop EYE-BOTH DAILY [facility] Last Admin: 12/01/23 08:25 Dose: 1 drop Tramadol HCl (Tramadol Hcl 50 Mg Tablet) 50 mg PO BID PRN PRN Reason: Pain, Moderate Last Admin: 11/30/23 12:59 Dose: 50 mg Vitamin D (Cholecalciferol (Vitamin D3) 25 Mcg Tablet) 25 mcg PO DAILY [facility] Last Admin: 12/01/23 08:25 Dose: 25 mcg Warfarin Sodium (Warfarin Sodium 5 Mg Tablet) 5 mg PO DAILY@1800 [facility] Last Admin: 11/30/23 18:18 Dose: 5 mg Home Medications Medication Instructions Recorded Confirmed Last Taken Type adalimumab 40 mg/0.4 mL 40 mg subcut Q2W 11/20/21 11/30/23 11/16/23 History subcutaneous pen kit (Humira(CF) Pen) folic acid 400 mcg tablet 800 mcg PO DAILY 11/20/21 11/30/23 Unknown History metoprolol tartrate 50 mg tablet 1 tab PO BID 11/20/21 11/30/23 Unknown History rosuvastatin 10 mg tablet 1 tab PO BEDTIME 11/20/21 11/30/23 Unknown History timolol maleate 0.5 % eye drops 1 drp ophthalmic (eye) DAILY 11/20/21 11/30/23 Unknown History tramadol 50 mg tablet 1 tab PO BID PRN Pain, Moderate 11/20/21 11/30/23 06/23/23 History aspirin 81 mg tablet,delayed 81 mg PO DAILY 04/18/23 11/30/23 Unknown History release cholecalciferol (vitamin D3) 25 25 mcg PO DAILY 04/18/23 11/30/23 Unknown History mcg (1,000 unit) capsule (Vitamin D3) fluticasone furoate 200 1 puff inhalation DAILY 04/18/23 11/30/23 Unknown History mcg-vilanterol 25 mcg/dose inhalation powder (Breo Ellipta) nitroglycerin 0.4 mg sublingual 0.4 mg sublingual NEEDED PRN 04/18/23 11/30/23 Unknown History tablet Chest Pain omeprazole 40 mg capsule,delayed 40 mg PO DAILY@0630 06/23/23 11/30/23 Unknown History release sacubitril 24 mg-valsartan 26 mg 1 tab PO BID 10/13/23 11/30/23 Unknown History tablet (Entresto) empagliflozin 25 mg tablet 25 mg PO DAILY 11/30/23 11/30/23 Unknown History (Jardiance) prednisone 5 mg tablet 7.5 mg PO DAILY 11/30/23 11/30/23 Unknown History warfarin 2.5 mg tablet (Jantoven) 5 mg PO DAILY@1800 11/30/23 11/30/23 Unknown History Physical Exam Vital Signs: Vital Signs: Last Vital Signs Temp 97.1 F 12/01/23 07:28 Pulse 64 12/01/23 07:36 Resp 16 12/01/23 07:36 BP 163/77 H 12/01/23 07:28 Pulse Ox 96 12/01/23 07:28 O2 Del Method High Flow Nasal C annula 12/01/23 07:28 O2 Flow Rate 35 12/01/23 07:28 FiO2 40 12/01/23 07:28 BMI result Body Mass Index 27.9 GENERAL APPEARANCE: in no acute distress, pleasant. On supplemental oxygen. NECK: no carotid bruit, ++ jugular venous distention. SKIN: no suspicious lesions, warm and dry. HEART: no murmurs, irregular rate and rhythm. LUNGS: clear to auscultation bilaterally. Diminished breath sounds bilaterally. ABDOMEN: soft, nontender. EXTREMITIES: Mild edema. PERIPHERAL PULSES: equal. NEUROLOGIC: No gross deficits, AAO X 3 Objective Labs and Meds 12/01/23 05:35 12/01/23 05:35 Lab results: Laboratory Results - last 24 hr 11/30/23 12/01/23 20:32 05:35 WBC 10.9 H RBC 4.33 L Hgb 11.8 L Hct 37.2 L MCV 85.9 MCH 27.3 MCHC 31.7 RDW 18.5 H Plt Count 258 MPV 12.1 Immature Gran % (Auto) 0.6 H Neut % (Auto) 79.7 H Lymph % (Auto) 10.1 L [place] % (Auto) 9.4 Eos % (Auto) 0.1 Baso % (Auto) 0.1 Lymph # (Auto) 1.1 L [place] # (Auto) 1.0 Eos # (Auto) 0.0 Baso # (Auto) 0.0 Abs Immat Gran (auto) 0.06 H Absolute Neuts (auto) 8.7 H Absolute Nucleated RBC 0.030 H Nucleated RBC % (auto) 0.3 H PT 32.9 H INR 2.7 H Sodium 141 Potassium 4.7 D Chloride 102 Carbon Dioxide 25 Anion Gap 19 BUN 40 H Creatinine 1.68 H Estim Creat Clear Calc 41.0 Estimated GFR 40 POC Glucose 268 H Random Glucose 207 H Calcium 10.0 Assessment and Plan (1) Acute exacerbation of CHF (congestive heart failure): Status: Acute (2) COPD (chronic obstructive pulmonary disease): Status: Acute (3) Cor pulmonale: Status: Acute Plan Very pleasant 78-year-old gentleman who is presenting for excessive a dodd of congestive heart failure. He has background of diastolic heart failure. He also has severe pulmonary hypertension secondary to underlying COPD and unfortunately has developed progressive RV dysfunction with RV dilation. His presentation again is due to diastolic heart failure right more than left and he appears to be still volume overloaded. Agree with IV diuretics at this stage. He has been on Entresto and metoprolol tartrate 50 mg twice a day. I thing Entresto can be continued but beta-cely should be decreased to 25 mg twice a day and digoxin 125 mcg every other day should be added to his regimen. Once creatinine is stable then would consider adding spironolactone depending on potassium levels. Quite complex issue unfortunately and he has underlying COPD as a cause for severe pulmonary hypertension. He should be on oxygen all the time because hypoxia will cause vaso constriction in the pulmonary bed and will lead to higher pulmonary pressures. Thank you for allowing me to participate in the care of your patient. Please feel free to contact me if you have any questions. Procedures Date of Service Date of Service: 12/01/23
[2023-12-02] VITALS (7 sets, daily range): BP systolic 140–158; BP diastolic 77–82; PULSE 53–86; RESP 16–18; TEMP 36.1–36.4; O2SAT 84–98
--- NOTE | 2023-12-02 10:14 | HO.PM.IMPN ---
Subjective Subjective Date of Service: 12/02/23 Interval History: Seen in f/u for heart failure exacerbation, acute on chronic resp failure interval history: patient is better, feels more comfortable, however clinically remains fluid overloaded Physical Exam Vital Signs: Vital Signs: Last Vital Signs Temp 96.9 F 12/02/23 07:10 Pulse 53 12/02/23 08:21 Resp 16 12/02/23 08:21 BP 144/80 H 12/02/23 07:10 Pulse Ox 96 12/02/23 07:10 O2 Del Method Nasal Cannula 12/02/23 07:10 O2 Flow Rate 4 12/02/23 07:10 FiO2 40 12/01/23 07:28 BMI result Body Mass Index 27.9 GENERAL APPEARANCE: in no acute distress, pleasant. On supplemental oxygen. NECK: no carotid bruit, + jugular venous distention. SKIN: no suspicious lesions, warm and dry. HEART: no murmurs, irregular rate and rhythm. LUNGS: clear to auscultation bilaterally. Diminished breath sounds bilaterally. ABDOMEN: soft, nontender. EXTREMITIES: Mild edema. PERIPHERAL PULSES: equal. NEUROLOGIC: No gross deficits, AAO X 3 Objective Data Active Medications Acetaminophen (Acetaminophen 325 Mg Tablet) 650 mg PO Q6H PRN PRN Reason: Pain, Mild (Pain Scale 1-3) Aspirin (Aspirin Enteric Coated 81 Mg Tablet.) 81 mg PO DAILY [facility] Last Admin: 12/02/23 09:41 Dose: 81 mg Documented By: MANOJ Atorvastatin Calcium (Atorvastatin Calcium 40 Mg Tablet) 40 mg PO BEDTIME [facility] Last Admin: 12/01/23 21:24 Dose: 40 mg Documented By: EFRAIN Dextrose (Dextrose 50 % 25 Gm/50 Ml Syringe) 25 gm IVPUSH Q15M PRN; Protocol PRN Reason: per Hypoglycemia Standing Ord. Digoxin (Digoxin 0.125 Mg Tablet) 0.125 mg PO Q2D [facility] Last Admin: 12/01/23 13:33 Dose: 0.125 mg Documented By: GRACIE Empagliflozin (Empagliflozin 25 Mg Tablet) 25 mg PO DAILY [facility] Last Admin: 12/02/23 09:42 Dose: 25 mg Documented By: MANOJ Fluticasone/Vilanterol (Fluticasone/Vilanterol 200/25 Blst.W.Dev) 1 puff INHALE RDAILY [facility] Last Admin: 12/02/23 08:20 Dose: 1 puff Documented By: BOI Folic Acid (Folic Acid 1 Mg Tablet) 1 mg PO DAILY [facility] Last Admin: 12/02/23 09:42 Dose: 1 mg Documented By: MANOJ Furosemide (Furosemide 40 Mg Tablet) 40 mg PO BID@0900,1800 [facility]; Protocol Last Admin: 12/02/23 09:42 Dose: 40 mg Documented By: MANOJ Glucose (Glucose Gel 15 Gm Gel..Gram.) 15 gm PO Q15M PRN; Protocol PRN Reason: per Hypoglycemia Standing Ord. Insulin Glargine (Insulin Glargine,Hum.Rec.Anlog 100 Unit/Ml 10 Ml Vial) 20 unit SUBCUT BEDTIME [facility] Last Admin: 12/01/23 21:30 Dose: Not Given Documented By: EFRAIN Non-Admin Reason: Patient Refused Insulin Human Lispro (Insulin Lispro 100 Unit/Ml 3 Ml Vial) 0 unit SUBCUT QIDACHS [facility]; Protocol Last Admin: 12/02/23 08:17 Dose: Not Given Documented By: MANOJ Non-Admin Reason: No Insulin Coverage Levalbuterol HCl (Levalbuterol Hcl 1.25 Mg/3 Ml Vial.Neb) 1.25 mg INHALE Q4H PRN PRN Reason: shortness of breath Melatonin (Melatonin 3 Mg Tablet) 6 mg PO BEDTIME PRN PRN Reason: Insomnia Metoprolol Tartrate (Metoprolol Tartrate 25 Mg Tablet) 25 mg PO BID [facility]; Protocol Last Admin: 12/02/23 09:42 Dose: 25 mg Documented By: MANOJ Nitroglycerin (Nitroglycerin 0.4 Mg Tab.Subl) 0.4 mg SUBLINGUAL Q5M PRN PRN Reason: Chest Pain Omeprazole (Omeprazole 40 Mg Capsule.Dr) 40 mg PO DAILY@0630 [facility] Last Admin: 12/02/23 05:47 Dose: 40 mg Documented By: EFRAIN Ondansetron HCl (Ondansetron Hcl 4 Mg/2 Ml Vial) 4 mg IVPUSH Q8H PRN PRN Reason: Nausea and Vomiting Prednisone (Prednisone 2.5 Mg Tablet) 7.5 mg PO DAILY [facility] Last Admin: 12/02/23 09:42 Dose: 7.5 mg Documented By: MANOJ Sacubitril/Valsartan (Sacubitril/Valsartan 49/51 1 Tab Tablet) 1 tab PO BID [facility]; Protocol Last Admin: 12/02/23 09:42 Dose: 1 tab Documented By: MANOJ Sodium Chloride (0.9 % Sodium Chloride Flush 3 Ml Syringe) 3 ml IVFLUSH QSHIFT [facility] Last Admin: 12/02/23 09:42 Dose: 3 ml Documented By: MANOJ Timolol Maleate (Timolol Maleate 0.5 % Oph [place] 5 Ml Drbtl) 1 drop EYE-BOTH DAILY [facility] Last Admin: 12/02/23 09:43 Dose: 1 drop Documented By: MANOJ Tramadol HCl (Tramadol Hcl 50 Mg Tablet) 50 mg PO BID PRN PRN Reason: Pain, Moderate Last Admin: 12/01/23 15:17 Dose: 50 mg Documented By: GRACIE Vitamin D (Cholecalciferol (Vitamin D3) 25 Mcg Tablet) 25 mcg PO DAILY [facility] Last Admin: 12/02/23 09:42 Dose: 25 mcg Documented By: MANOJ Warfarin Sodium (Warfarin Sodium 5 Mg Tablet) 5 mg PO DAILY@1800 [facility] Last Admin: 12/01/23 17:22 Dose: 5 mg Documented By: GRACIE Labs 12/01/23 05:35 12/01/23 05:35 Labs: Laboratory Results - last 24 hr 12/01/23 12/01/23 12/01/23 12:31 14:43 16:00 Hold Purple Top PT INR POC Glucose 312 H 348 H 303 H 12/01/23 12/01/23 12/02/23 16:57 20:17 06:01 Hold Purple Top SEE NOTE PT 51.4 H D INR 4.2 H POC Glucose 191 H 175 H 12/02/23 07:14 Hold Purple Top PT INR POC Glucose 120 H Assessment and Plan (1) Acute exacerbation of CHF (congestive heart failure): Status: Acute (2) Presence of CardioMEMS HF system: Status: Acute (3) Acute hypoxemic respiratory failure: Status: Acute (4) COPD (chronic obstructive pulmonary disease): Status: Acute Plan 78-year-old male with past medical history of HFpEF s/p CardioMEMS, ashmta/COPD on 4 liters of O2 at baseline, PAF, RA on chronic steroid, HTN admitted due to acute on chronic hypoxic resp failure due to exacerbation of heart failure acute on chronic hypoxic respiratory failure d/t exacerbation of CHF on top of copd, he required hiflow but is doing better -continue IV Lasix, I/O, weight, following with some med adjustment, entresto increased, metoprolol decrease and digoxin added. Continue O2, goal of sat 88 to 92. Check BMP Paroxysmal atrial fibrillation, controlled on metoprolol, OAC with coumadin, goal of INR is 4, hold coumadin today COPD with chronic resp failure on 4 liters at home, no exacerbation RA--continue Prednisone HTN--continue Metoprolol, entresto Diabetes--continue Lantus, SSI, diabetic diet HLD--statin CKD, Stage 3B Moderate CKD (GFR = 30-44 mL/min)--Stable, follow while on iv diuretics DVT prophylaxis--Coumadin Requires ongoing inpatient hospital stay for further management of respiratory failure/CHF - on IV diuretics Quality Stroke Does the patient have a stroke diagnosis?: No VTE Prior VTE?: No VTE Risk Level:: Medical - moderate - high VTE Device Contraindication: Treatment Not Indicated VTE Drug Contraindication: N/A - Med Ordered
--- NOTE | 2023-12-02 10:38 | PM.PNCARD ---
Subjective Subjective Date of Service: 12/02/23 Interval history: Feeling better. Still volume overloaded. Physical Exam Vital Signs: Last Vital Signs Temp 96.9 F 12/02/23 07:10 Pulse 53 12/02/23 08:21 Resp 16 12/02/23 08:21 BP 144/80 H 12/02/23 07:10 Pulse Ox 96 12/02/23 07:10 O2 Del Method Nasal Cannula 12/02/23 07:10 O2 Flow Rate 4 12/02/23 07:10 FiO2 40 12/01/23 07:28 BMI result Body Mass Index 27.9 GENERAL APPEARANCE: in no acute distress, pleasant. On supplemental oxygen. NECK: no carotid bruit, ++ jugular venous distention. SKIN: no suspicious lesions, warm and dry. HEART: no murmurs, irregular rate and rhythm. LUNGS: clear to auscultation bilaterally. Diminished breath sounds bilaterally. ABDOMEN: soft, nontender. EXTREMITIES: Mild edema. PERIPHERAL PULSES: equal. NEUROLOGIC: No gross deficits, AAO X 3 Objective Labs and Meds 12/01/23 05:35 12/01/23 05:35 Lab results: Laboratory Results - last 24 hr 12/01/23 12/01/23 12/01/23 12:31 14:43 16:00 Hold Purple Top PT INR POC Glucose 312 H 348 H 303 H 12/01/23 12/01/23 12/02/23 16:57 20:17 06:01 Hold Purple Top SEE NOTE PT 51.4 H D INR 4.2 H POC Glucose 191 H 175 H 12/02/23 07:14 Hold Purple Top PT INR POC Glucose 120 H Progress Note: A&P Assessment and plan (1) Cor pulmonale: Status: Acute (2) Acute exacerbation of CHF (congestive heart failure): Status: Acute Plan 78-year-old gentleman with known history of diastolic heart failure, COPD and pulmonary hypertension. He is presenting with congestive heart failure. Still volume overloaded. ECHO showing severe RV dilation and dysfunction. Pulmonary artery systolic pressure 75 mm Hg. Still volume overloaded currently. Continue the IV diuretics. Increasing the Entresto because blood pressure is high. In and out of atrial fibrillation. Metoprolol dose was decreased as beta-blockers are negative inotropes. Added digoxin 125 mcg every other day. Monitor potassium closely. Severe RV dilation and dysfunction-poor prognostic sign. Thank you for allowing me to participate in the care of your patient. Please feel free to contact me if you have any questions. Time Spent With Patient Time: Total time managing care of this patient today ____ minutes. Progress Note: Quality Stroke Does the patient have a stroke diagnosis?: No Procedures Date of Service Date of Service: 12/02/23
--- NOTE | 2023-12-02 15:07 | PC.NURSE ---
1015- Patient O2 dropping to 84% on 4L, primarily ranging from 97/90%. Patient asymptomatic. Dr. Cabral made aware. Respiratory at bedside. Patient placed on Crain cannula 6L, stating 92%. All needs met.
[2023-12-03 00:11] VITALS: BP 149/88; PULSE 83; RESP 16; TEMP 36.2; O2SAT 92
[2023-12-03 07:46] VITALS: BP 142/68; PULSE 54; RESP 18; TEMP 36.6; O2SAT 94
[2023-12-03 08:26] VITALS: PULSE 63; RESP 18; O2SAT 95
--- NOTE | 2023-12-03 09:20 | HO.PM.IMPN ---
Subjective Subjective Date of Service: 12/03/23 Physical Exam Vital Signs: Vital Signs: Last Vital Signs Temp 97.8 F 12/03/23 07:46 Pulse 63 12/03/23 08:26 Resp 18 12/03/23 08:26 BP 142/68 H 12/03/23 07:46 Pulse Ox 94 12/03/23 07:46 O2 Del Method Nasal Cannula 12/03/23 07:46 O2 Flow Rate 5 12/03/23 07:46 FiO2 40 12/01/23 07:28 BMI result Body Mass Index 27.9 Objective Data Active Medications Acetaminophen (Acetaminophen 325 Mg Tablet) 650 mg PO Q6H PRN PRN Reason: Pain, Mild (Pain Scale 1-3) Aspirin (Aspirin Enteric Coated 81 Mg Tablet.Dr) 81 mg PO DAILY [facility] Last Admin: 12/03/23 08:07 Dose: 81 mg Documented By: ALEIDA Atorvastatin Calcium (Atorvastatin Calcium 40 Mg Tablet) 40 mg PO BEDTIME [facility] Last Admin: 12/02/23 22:03 Dose: 40 mg Documented By: DORIS Dextrose (Dextrose 50 % 25 Gm/50 Ml Syringe) 25 gm IVPUSH Q15M PRN; Protocol PRN Reason: per Hypoglycemia Standing Ord. Digoxin (Digoxin 0.125 Mg Tablet) 0.125 mg PO Q2D [facility] Last Admin: 12/01/23 13:33 Dose: 0.125 mg Documented By: GRACIE Empagliflozin (Empagliflozin 25 Mg Tablet) 25 mg PO DAILY [facility] Last Admin: 12/03/23 08:07 Dose: 25 mg Documented By: ALEIDA Fluticasone/Vilanterol (Fluticasone/Vilanterol 200/25 Blst.W.Dev) 1 puff INHALE RDAILY [facility] Last Admin: 12/03/23 08:26 Dose: 1 puff Documented By: MARYBETH Folic Acid (Folic Acid 1 Mg Tablet) 1 mg PO DAILY [facility] Last Admin: 12/03/23 08:07 Dose: 1 mg Documented By: ALEIDA Furosemide (Furosemide 40 Mg/4 Ml Vial) 40 mg IVPUSH BID [facility]; Protocol Last Admin: 12/03/23 08:08 Dose: 40 mg Documented By: ALEIDA Glucose (Glucose Gel 15 Gm Gel..Gram.) 15 gm PO Q15M PRN; Protocol PRN Reason: per Hypoglycemia Standing Ord. Insulin Glargine (Insulin Glargine,Hum.Rec.Anlog 100 Unit/Ml 10 Ml Vial) 20 unit SUBCUT BEDTIME [facility] Last Admin: 12/02/23 22:04 Dose: 20 unit Documented By: DORIS Insulin Human Lispro (Insulin Lispro 100 Unit/Ml 3 Ml Vial) 0 unit SUBCUT QIDACHS [facility]; Protocol Last Admin: 12/03/23 08:12 Dose: Not Given Documented By: ALEIDA Non-Admin Reason: No Insulin Coverage Levalbuterol HCl (Levalbuterol Hcl 1.25 Mg/3 Ml Vial.Neb) 1.25 mg INHALE Q4H PRN PRN Reason: shortness of breath Melatonin (Melatonin 3 Mg Tablet) 6 mg PO BEDTIME PRN PRN Reason: Insomnia Last Admin: 12/02/23 22:15 Dose: 6 mg Documented By: DORIS Metoprolol Tartrate (Metoprolol Tartrate 25 Mg Tablet) 25 mg PO BID [facility]; Protocol Last Admin: 12/02/23 22:03 Dose: 25 mg Documented By: DORIS Nitroglycerin (Nitroglycerin 0.4 Mg Tab.Subl) 0.4 mg SUBLINGUAL Q5M PRN PRN Reason: Chest Pain Omeprazole (Omeprazole 40 Mg Capsule.Dr) 40 mg PO DAILY@0630 [facility] Last Admin: 12/03/23 05:24 Dose: 40 mg Documented By: DORIS Ondansetron HCl (Ondansetron Hcl 4 Mg/2 Ml Vial) 4 mg IVPUSH Q8H PRN PRN Reason: Nausea and Vomiting Prednisone (Prednisone 2.5 Mg Tablet) 7.5 mg PO DAILY [facility] Last Admin: 12/03/23 08:07 Dose: 7.5 mg Documented By: ALEIDA Sacubitril/Valsartan (Sacubitril/Valsartan 49/51 1 Tab Tablet) 1 tab PO BID [facility]; Protocol Last Admin: 12/03/23 08:07 Dose: 1 tab Documented By: ALEIDA Sodium Chloride (0.9 % Sodium Chloride Flush 3 Ml Syringe) 3 ml IVFLUSH QSHIFT [facility] Last Admin: 12/03/23 08:12 Dose: 3 ml Documented By: ALEIDA Timolol Maleate (Timolol Maleate 0.5 % Oph [place] 5 Ml Drbtl) 1 drop EYE-BOTH DAILY [facility] Last Admin: 12/03/23 08:13 Dose: 1 drop Documented By: ALEIDA Tramadol HCl (Tramadol Hcl 50 Mg Tablet) 50 mg PO BID PRN PRN Reason: Pain, Moderate Last Admin: 12/02/23 22:09 Dose: 50 mg Documented By: DORIS Vitamin D (Cholecalciferol (Vitamin D3) 25 Mcg Tablet) 25 mcg PO DAILY [facility] Last Admin: 12/03/23 08:07 Dose: 25 mcg Documented By: ALEIDA Warfarin Sodium (Warfarin Sodium 5 Mg Tablet) 5 mg PO DAILY@1800 [facility] Last Admin: 12/01/23 17:22 Dose: 5 mg Documented By: GRACIE Labs 12/01/23 05:35 12/03/23 Unknown Labs: Laboratory Results - last 24 hr 12/02/23 12/02/23 12/02/23 09:08 11:12 16:20 Hold Purple Top PT INR Anion Gap 15 Estim Creat Clear Calc 52.2 Estimated GFR 52 POC Glucose 168 H 261 H Random Glucose 139 H Calcium 9.7 12/02/23 12/03/23 12/03/23 20:50 06:02 07:44 Hold Purple Top SEE NOTE PT 51.2 H INR 4.2 H Anion Gap Estim Creat Clear Calc Estimated GFR POC Glucose 167 H 84 Random Glucose Calcium 12/03/23 Unknown Hold Purple Top PT INR Anion Gap 14 Estim Creat Clear Calc 60.5 Estimated GFR > 60 POC Glucose Random Glucose 96 Calcium 9.7 Assessment and Plan (1) Acute exacerbation of CHF (congestive heart failure): Status: Acute (2) Presence of CardioMEMS HF system: Status: Acute (3) Acute hypoxemic respiratory failure: Status: Acute (4) COPD (chronic obstructive pulmonary disease): Status: Acute Plan 78-year-old male with past medical history of HFpEF s/p CardioMEMS, ashmta/COPD on 4 liters of O2 at baseline, PAF, RA on chronic steroid, HTN admitted due to acute on chronic hypoxic resp failure due to exacerbation of heart failure acute on chronic hypoxic respiratory failure d/t exacerbation of CHF on top of copd, he required hiflow but is doing better -continue IV Lasix, I/O, weight, following with some med adjustment, entresto increased, metoprolol decrease and digoxin added. Continue O2, goal of sat 88 to 92. Check BMP Paroxysmal atrial fibrillation, controlled on metoprolol, OAC with coumadin, goal of INR is 4, hold coumadin today COPD with chronic resp failure on 4 liters at home, no exacerbation RA--continue Prednisone HTN--continue Metoprolol, entresto Diabetes--continue Lantus, SSI, diabetic diet HLD--statin CKD, Stage 3B Moderate CKD (GFR = 30-44 mL/min)--Stable, follow while on iv diuretics DVT prophylaxis--Coumadin Requires ongoing inpatient hospital stay for further management of respiratory failure/CHF - on IV diuretics Quality Stroke Does the patient have a stroke diagnosis?: No VTE Prior VTE?: No VTE Risk Level:: Medical - moderate - high VTE Device Contraindication: Treatment Not Indicated VTE Drug Contraindication: N/A - Med Ordered
--- NOTE | 2023-12-03 09:23 | P.DS_ITS ---
DS: Providers Provider Date of Service: 12/03/23 Date of admission: 11/30/23 05:40 Primary care physician: Moris Machado III, MD Consults: 11/30/23 13:35 Consult to Cardiology Routine Consulting Provider: [facility] [place] [facility] Reason for consultation: heart failure with acute resp failure Has provider been notified: Yes DS: Diagnosis Discharge Diagnosis (1) Acute exacerbation of CHF (congestive heart failure): Status: Inactive (2) Presence of CardioMEMS HF system: Status: Acute (3) Acute hypoxemic respiratory failure: Status: Resolved (4) COPD (chronic obstructive pulmonary disease): Status: Resolved DS: Summary Hospital Course Hospital Course: Chief Complaint: Dyspnea This is a 78-year-old male with pertinent history of chronic hypoxemic respiratory failure due to COPD, congestive heart failure with preserved ejection fraction, paroxysmal atrial fibrillation on Coumadin, rheumatoid arthritis presents to the emergency department for evaluation of dyspnea. Patient states that his dyspnea started 2 days prior to presentation and has been progressive. Also admits orthopnea and lower leg swelling. States that he is compliant with his home Lasix. No cough, fever or chills. No chest discomfort, palpitations, abdominal pain, changes in urinary or bowel habits. States he uses 4 L supplemental oxygen at home. In the emergency department, BNP found to be elevated and patient initiated on IV Lasix. Patient requiring 5 L supplemental oxygen. Hospital course: Patient was admitted and treated for acute on chronic hypoxic hypoxic respiratory failure due to heart failure exacerbation in addition to underlying copd for which he's on supplemental oxygen at 4 liter ast home.He was treated with IV Lasix with good effect and has diuressed 7 liters. Cardiology has advised increasing entresto, lowering metoprolol and digoxin is added at 125 mcg every other day. He is overall doing well, hypOxic has returned to baseline at 4 liters and saturating 95 %. At discharge, Lasix will be increased at 40 mg PO BID, Entresto to 49/51, metoprolol reduced to 25 bid and digoxin added at 125 mcg overy other day. Time Attestation Discharge coordination time: Greater than 30 minutes Quality: Safe Use of Opioids Does Pt have an Active Cancer Diagnosis on the Problem List?: No Quality: Stroke Does the patient have a stroke diagnosis?: No Physical Exam Vital Signs: Vital Signs: Last Vital Signs Temp 97.8 F 12/03/23 07:46 Pulse 63 12/03/23 08:26 Resp 18 12/03/23 08:26 BP 142/68 H 12/03/23 07:46 Pulse Ox 94 12/03/23 07:46 O2 Del Method Nasal Cannula 12/03/23 07:46 O2 Flow Rate 5 12/03/23 07:46 FiO2 40 12/01/23 07:28 BMI result Body Mass Index 27.9 Const: Other: General: AO X 3, no acute distress Resp: CTA bilateral CVS: S1,S2,RRR GI: +BS, NT, no distention Skin: No rash Neuro: motor grossly intact Psych: appropriate affect DS: Data Data Completed and Pending Labs on day of discharge: Laboratory Results - last 24 hr 12/02/23 12/02/23 12/02/23 09:08 11:12 16:20 Hold Purple Top PT INR Sodium 141 Potassium 3.7 D Chloride 100 Carbon Dioxide 30 H Anion Gap 15 BUN 40 H Creatinine 1.32 Estim Creat Clear Calc 52.2 Estimated GFR 52 POC Glucose 168 H 261 H Random Glucose 139 H Calcium 9.7 12/02/23 12/03/23 12/03/23 20:50 06:02 07:44 Hold Purple Top SEE NOTE PT 51.2 H INR 4.2 H Sodium Potassium Chloride Carbon Dioxide Anion Gap BUN Creatinine Estim Creat Clear Calc Estimated GFR POC Glucose 167 H 84 Random Glucose Calcium 12/03/23 Unknown Hold Purple Top PT INR Sodium 143 Potassium 3.2 L Chloride 102 Carbon Dioxide 30 H Anion Gap 14 BUN 38 H Creatinine 1.14 Estim Creat Clear Calc 60.5 Estimated GFR > 60 POC Glucose Random Glucose 96 Calcium 9.7 Discharge Plan Discharge Anticipated Discharge Date/Time: 12/02/23 09:56 Patient Disposition: Home Health Service Discharge Diagnosis: Exacerbation of heart failure Referrals: [facility] [Outside] Moris Machado III, MD [Primary Care Provider] - 1 Week Discharge Medications: New Entresto 49-51 mg Tablet 1 tab PO BID Qty: 30 1RF Protocol: Hold for SBP< HOLD for SBP < : 90 bumetanide 1 mg tablet 1 mg PO BID Qty: 60 0RF Continued folic acid 400 mcg tablet 400 mcg PO DAILY tramadol 50 mg tablet 1 tab PO BID PRN (Reason: Pain, Moderate) timolol maleate 0.5 % drops 1 drp ophthalmic (eye) DAILY rosuvastatin 10 mg tablet 1 tab PO BEDTIME Humira(CF) Pen 40 mg/0.4 mL pen injector kit 40 mg subcut Q2W Rx Instructions: WED aspirin 81 mg Tablet,Delayed Release (Dr/Ec) 81 mg PO DAILY nitroglycerin 0.4 mg tablet, sublingual 0.4 mg sublingual NEEDED PRN (Reason: Chest Pain) fluticasone furoate-vilanterol [Breo Ellipta] 200-25 mcg/dose blister with device 1 puff inhalation DAILY omeprazole 40 mg capsule,delayed release(DR/EC) 40 mg PO DAILY@0630 insulin glargine [Lantus Solostar U-100 Insulin] 100 unit/mL (3 mL) insulin pen 20 unit subcut QPM Qty: 15 2RF prednisone 5 mg tablet 7.5 mg PO DAILY warfarin [Jantoven] 2.5 mg tablet 5 mg PO DAILY@1800 Jardiance 25 mg tablet 25 mg PO DAILY Discontinued metoprolol tartrate 50 mg tablet 1 tab PO BID furosemide 40 mg Tablet 40 mg PO DAILY 30 Days Qty: 30 0RF Protocol: Hold for SBP< HOLD for SBP < : 90 Entresto 24-26 mg tablet 1 tab PO BID No Action sildenafil (pulm.hypertension) [Revatio] 20 mg tablet 20 mg PO TID 30 Days Qty: 90 3RF Rx Instructions: administer doses at least 4-6 hours apart albuterol sulfate [Ventolin HFA] 90 mcg/actuation HFA aerosol inhaler 2 puff INHALATION Q4H PRN (Reason: wheezing) albuterol sulfate 2.5 mg /3 mL (0.083 %) solution for nebulization 2.5 mg inhalation Q4H PRN (Reason: wheezing) metoprolol succinate 50 mg Tablet Extended Release 24 Hr 50 mg PO DAILY Qty: 30 1RF Protocol: Hold for SBP/HR < HOLD for SBP < : 90 HOLD for HR < : 60 diltiazem HCl 240 mg Capsule,Extended Release 24hr 240 mg PO DAILY Qty: 30 1RF Protocol: Hold for SBP/HR < HOLD for SBP < : 90 HOLD for HR < : 60 (DME) nebulizers Misc See Rx Instructions .ROUTE Rx Instructions: As directed (DME) Oxygen Home Use Kit See Rx Instructions .ROUTE Rx Instructions: As directed Discharge Orders: Discharge Order (Routine); Ordered 12/03/23 Ordered By: Deon Cabral Diet: Diabetic diet Activity on Discharge: As tolerated Stand Alone Forms: Patient Portal Discharge page Care Plan Goals: recovery from heart failure Health Concerns: heart failure, pulmonary htn, copd on chronic home oxygen Plan of Treatment: Lasix is stopped and replaced with Bumex Sacubril (Entresto) dose has changed take Bumex as directed, avoid drinking too much water (No more than 1500cc a day)or eating salty food weight yourself daily, and if your weight increase more than 2 Ib in a day, call your Doctor follow up with your doctor in a week Do not take coumadin today or tomorrow (november) 7, check INR on tuesday before taking coumadin again check digoxin and potassium level tuesday12/07/23 Assessment: see above Discharge Date/Time: 12/03/23 16:57
--- NOTE | 2023-12-03 09:31 | P.F2F_ITS ---
Service Date Service Date: 12/03/23 Encounter Date of encounter: 12/03/23 Reasons for Services Signs and symptoms assessed: Heart failure, shortness of breath Reason for residential: medication management and teach disease management Homebound: Leaving the home is medically contraindicated at this time without the asist of a device and/or another person due th the listed conditions above and below. Reason homebound: shortness of breath with minimal effort and weakness related to hospital stay Homebound supporting statement: homebound d/t weakness from hospitalization, shortness of breath with minimal effort and therefore needs the assistance of another person Certification: Based on the above findings, I certify that this patient is confined to the home and needs intermittent residential care, physical therapy and/or speech therapy, or continues to need occupational therapy. The patient is under my care, and I have initiated the establishment of the plan of care. The patient will be followed by a physician who will periodically review the plan of care. Time Spent With Patient Time: Total time managing care of this patient today ____ minutes.
--- NOTE | 2023-12-03 12:28 | PM.PNCARD ---
Subjective Subjective Date of Service: 12/03/23 Interval history: Seen examined at bedside. Feeling better. volume status improved. Physical Exam Vital Signs: Last Vital Signs Temp 97.8 F 12/03/23 07:46 Pulse 63 12/03/23 08:26 Resp 18 12/03/23 08:26 BP 142/68 H 12/03/23 07:46 Pulse Ox 94 12/03/23 07:46 O2 Del Method Nasal Cannula 12/03/23 07:46 O2 Flow Rate 5 12/03/23 07:46 FiO2 40 12/01/23 07:28 BMI result Body Mass Index 27.9 GENERAL APPEARANCE: in no acute distress, pleasant. On supplemental oxygen. NECK: no carotid bruit, no significant jugular venous distention. SKIN: no suspicious lesions, warm and dry. HEART: no murmurs, irregular rate and rhythm. LUNGS: clear to auscultation bilaterally. Diminished breath sounds bilaterally. ABDOMEN: soft, nontender. EXTREMITIES: No edema. PERIPHERAL PULSES: equal. NEUROLOGIC: No gross deficits, AAO X 3 Objective Labs and Meds 12/01/23 05:35 12/03/23 Unknown Lab results: Laboratory Results - last 24 hr 12/02/23 12/02/23 12/03/23 16:20 20:50 06:02 Hold Purple Top SEE NOTE PT 51.2 H INR 4.2 H Sodium Potassium Chloride Carbon Dioxide Anion Gap BUN Creatinine Estim Creat Clear Calc Estimated GFR POC Glucose 261 H 167 H Random Glucose Calcium 12/03/23 12/03/23 12/03/23 07:44 11:32 12:09 Hold Purple Top PT INR Sodium Potassium Chloride Carbon Dioxide Anion Gap BUN Creatinine Estim Creat Clear Calc Estimated GFR POC Glucose 84 354 H* 334 H Random Glucose Calcium 12/03/23 Unknown Hold Purple Top PT INR Sodium 143 Potassium 3.2 L Chloride 102 Carbon Dioxide 30 H Anion Gap 14 BUN 38 H Creatinine 1.14 Estim Creat Clear Calc 60.5 Estimated GFR > 60 POC Glucose Random Glucose 96 Calcium 9.7 Progress Note: A&P Assessment and plan (1) Cor pulmonale: Status: Acute (2) Acute exacerbation of CHF (congestive heart failure): Status: Acute Plan 78-year-old gentleman with known history of diastolic heart failure, COPD and pulmonary hypertension. He is presenting with congestive heart failure. ECHO showing severe RV dilation and dysfunction. Pulmonary artery systolic pressure 75 mm Hg. Diuresed and has improved significantly. Seen to Bumex 1 mg b.i.d.. Metoprolol 25 mg twice a day. Digoxin 125 mcg every other day. Entresto dose was doubled. Overall stable at this point. He has underlying severe pulmonary hypertension due to COPD which is 1 of the main reasons for right ventricular dysfunction at this point. He should stay on supplemental oxygen. He will see us back in office in the coming weeks. Thank you for allowing me to participate in the care of your patient. Please feel free to contact me if you have any questions. Time Spent With Patient Time: Total time managing care of this patient today ____ minutes. Progress Note: Quality Stroke Does the patient have a stroke diagnosis?: No Procedures Date of Service Date of Service: 12/03/23
--- NOTE | 2023-12-03 15:53 | MHC.CM.PN ---
PT CLEARED TO DC HOME TODAY WITH [facility] CM INFORMED PT WILL NEED LABS DONE ON TUESDAY [facility] REFERRAL ALREADY IN, HOWEVER THEY ARE UNABLE TO GUARANTEE THEY CAN SEE PT ON TUESDAY DUE TO STAFFING AND WEATHER REFERRAL MADE TO [facility] CM MET WITH PT AND WITH DIRECT OF [facility] ESTATE THEY ARE AWARE PT WILL HAVE [facility] AND BE SEEN ON TUESDAY
== END 2023-12-03 16:57 | disposition home health service (06) | DRG 291 ==
LOC: HO.ED 03:19 → HO.EDOVER 05:52 → HO.S3 14:15
PROVIDERS: Admitting Provider Student in an Organized Health Care Education/Training Program; Emergency Provider Student in an Organized Health Care Education/Training Program; PCP Internal Medicine; Visit Provider Internal Medicine
DX: I13.0 Hypertensive heart and chronic kidney disease with heart failure and stage 1 through stage 4 chronic kidney disease, or unspecified chronic kidney disease (principal); I50.33 Acute on chronic diastolic (congestive) heart failure; J96.21 Acute and chronic respiratory failure with hypoxia; N18.32 Chronic kidney disease, stage 3b; E78.2 Mixed hyperlipidemia; I48.0 Paroxysmal atrial fibrillation; I27.81 Cor pulmonale (chronic); M06.9 Rheumatoid arthritis, unspecified; Z99.81 Dependence on supplemental oxygen; I27.23 Pulmonary hypertension due to lung diseases and hypoxia; J44.9 Chronic obstructive pulmonary disease, unspecified; Z87.891 Personal history of nicotine dependence; Z79.4 Long term (current) use of insulin; Z79.01 Long term (current) use of anticoagulants; Z79.51 Long term (current) use of inhaled steroids; Z79.84 Long term (current) use of oral hypoglycemic drugs; Z79.620 Long term (current) use of immunosuppressive biologic; Z79.899 Other long term (current) drug therapy
CPT/HCPCS: 0241U; 36415; 71045; 80048; 80053; 82803; 82947; 83880; 85025; 85610; 93005; 93306; 94640; 99285; J1940; J2930; Q9957

== ENCOUNTER 2023-11-30 05:40 | Outpatient (BNV) | payer MEDICARE, MEDICAID, SELFPAY | END 2023-12-01 13:47 | PROVIDERS: Admitting Provider Student in an Organized Health Care Education/Training Program; Emergency Provider Student in an Organized Health Care Education/Training Program; PCP Internal Medicine; Visit Provider Internal Medicine Cardiovascular Disease | DX: I49.1 Atrial premature depolarization (principal) | CPT/HCPCS: 93010 ==

== ENCOUNTER 2023-11-30 05:40 | Outpatient (BNV) | payer MEDICARE, MEDICAID, SELFPAY | END 2023-11-30 07:00 | PROVIDERS: Admitting Provider Student in an Organized Health Care Education/Training Program; Emergency Provider Student in an Organized Health Care Education/Training Program; PCP Internal Medicine; Visit Provider Internal Medicine Cardiovascular Disease | DX: I48.91 Unspecified atrial fibrillation (principal); R94.31 Abnormal electrocardiogram [ECG] [EKG] | CPT/HCPCS: 93010; 93306 ==

== ENCOUNTER → 2023-11-30 05:40 | Outpatient (BNV) | payer MEDICARE, MEDICAID, SELFPAY | PROVIDERS: Admitting Provider Student in an Organized Health Care Education/Training Program; Emergency Provider Student in an Organized Health Care Education/Training Program; Visit Provider Student in an Organized Health Care Education/Training Program | DX: I50.9 Heart failure, unspecified (principal); Z95.818 Presence of other cardiac implants and grafts; J96.21 Acute and chronic respiratory failure with hypoxia; J44.9 Chronic obstructive pulmonary disease, unspecified | CPT/HCPCS: 99222; 99233; 99239; 99499; G0180 ==

== ENCOUNTER → 2023-11-30 05:40 | Outpatient (BNV) | payer MEDICARE, MEDICAID, SELFPAY | PROVIDERS: Admitting Provider Student in an Organized Health Care Education/Training Program; Emergency Provider Student in an Organized Health Care Education/Training Program; PCP Internal Medicine; Visit Provider Internal Medicine Cardiovascular Disease | DX: I27.81 Cor pulmonale (chronic) (principal); I50.9 Heart failure, unspecified | CPT/HCPCS: 99223; 99232; 99233 ==

== ENCOUNTER → 2023-12-05 23:59 | Outpatient (BNV) | payer MEDICARE, MEDICAID, SELFPAY ==
--- NOTE | 2023-12-13 18:30 | MHC.OFFVIS ---
Intake Intake Visit Reasons: Remote CardioMEMS- [facility] Allergies No Known Allergies Allergy (Unknown, Verified 11/30/23 02:44) NOT APPLICABLE PFSH Medical History SVT (supraventricular tachycardia) CHF exacerbation Chronic anticoagulation Atrial fibrillation Chronic hypoxemic respiratory failure Hypertension Rheumatoid arthritis Lymphadenopathy ILD (interstitial lung disease) COPD exacerbation Surgical History Hx of colonoscopy Social History Household Members: Spouse Housing: Apartment Do you presently have visiting nurse or other home services: Yes ([employer] 3hrs/daily) Alcohol intake: never Patient Tobacco Use Status: Former Tobacco user Quit Date: 23 years ago Tobacco use type: Cigarette Years Smoked: 40 e-Cigarette/Vaping Use: Former Use Advance Directives Date on File: 06/27/23 service: No Current occupational status: retired Office Procedures Cardiac Device Check Cardiac Device Check Details: Monitoring period dates:10/28/23 - 11/27/23 Optimal PA pressure range: ADDY goal 45mmhg Procedure code: 96296 BACKGROUND: Tommy is implanted with the CardioMEMS PA Sensor.? I use this technology to monitor PA pressures on a weekly basis to ensure patients are within their optimal range to prevent decompensation.? SUMMARY:? I utilized the remote monitoring platform ([employer]) to set optimal targets for pulmonary artery pressure thresholds as part of acute and chronic management of patient?s heart failure. During the period indicated above, I monitored the patient?s pulmonary artery pressures weekly via trend analysis and notification reports which provide alerts when patient?s PA pressures were outside of range to prompt immediate action in medication changes and communications.? The weekly reports are archived in the [employer] system which serve as a parallel record to document weekly PA pressures, medication changes, and clinical notes. I have reviewed readings on 10/29, 11/04, 11/11, 11/16, 11/22, 11/25. His ADDY readings have ranged between 46-63mmhg. We had difficulty reaching him by phone. Letter had been sent. He was hospitalized and diuresed. 02997 - Remote monitoring of wireless pulmonary artery pressure sensor Procedure code (CPT) selection complete Assessment & Plan Assessment & Plan (1) Presence of CardioMEMS HF system: Code(s): Z95.818 - Presence of other cardiac implants and grafts Plan: monthly report Coding Level of Care Code Procedure Only Diagnoses Presence of CardioMEMS HF system Z95.818 CPT Codes Cardiac Device Check - Cardiac Device 17: 49427 - Remote monitoring of wireless pulmonary artery pressure sensor ([id number])
== END ==
PROVIDERS: PCP Internal Medicine; Visit Provider Nurse Practitioner Family
DX: I50.30 Unspecified diastolic (congestive) heart failure (principal); Z95.818 Presence of other cardiac implants and grafts
CPT/HCPCS: 93264

== ENCOUNTER 2023-12-07 11:49 | Outpatient (REF) | payer MEDICARE, MEDICAID, SELFPAY ==
[2023-12-07 12:56] LABS: Anion Gap 16 (12-20); Blood Urea Nitrogen 33 mg/dL (9-16); Calcium 10.1 mg/dL (8.4-10.2); Carbon Dioxide 31 mmol/L (22-29); Chloride 99 mmol/L (96-108); Estimated Glomerular Filt Rate 43; Glucose Random 144 mg/dL (60-115); Sodium 142 mmol/L (135-145)
[2023-12-07 12:59] LABS: Digoxin < 0.2 ng/mL (0.8-2.0)
== END 2023-12-07 11:50 | disposition home or self-care (01) ==
LOC: HO.LAB 11:49
PROVIDERS: PCP Internal Medicine; Visit Provider Internal Medicine
DX: I50.9 Heart failure, unspecified (principal); E87.6 Hypokalemia
CPT/HCPCS: 36415; 80048; 80162

== ENCOUNTER 2023-12-14 02:01 | Inpatient (IN) | payer MEDICARE, MEDICAID, SELFPAY ==
[2023-12-14] VITALS (28 sets, daily range): BP systolic 99–170; BP diastolic 46–80; PULSE 62–110; RESP 12–24; TEMP 36.1–36.7; O2SAT 87–98; BMI 27.7; BMI 25.9
--- NOTE | 2023-12-14 | ECG_ITS ---
Test Reason : SOB Blood Pressure : / mmHG Vent. Rate : 101 BPM Atrial Rate : 101 BPM P-R Int : 138 ms QRS Dur : 128 ms QT Int : 372 ms P-R-T Axes : 072 144 -08 degrees QTc Int : 482 ms Sinus tachycardia with Premature atrial complexes Right bundle branch block Abnormal ECG When compared with ECG of 01-DEC-2023 13:47, Vent. rate has increased BY 41 BPM Referred By: Generic ED Physician Electronically Signed By:ANA SOLIS
--- NOTE | ~2023-12-14 | XR_ITS ---
EXAMINATION: XR CHEST CLINICAL INFORMATION: Congestive heart failure. COMPARISON: 11/30/2023. TECHNIQUE: Frontal view of the chest was obtained. FINDINGS: The lung volumes are low. The cardiomediastinal silhouette is stable. There are increased markings/patchy infiltrative change bilateral mid to lower lung lopez. Costophrenic angles are minimally blunted. The lung upper lung lopez are clear. The bony structures and soft tissues are unremarkable. XR/XR chest 1V IMPRESSION: Bilateral mid to lower lung field increased markings/patchy infiltrative change. A similar finding was seen previously and is stable. No significant interval change.
--- NOTE | ~2023-12-14 | CT_ITS ---
EXAMINATION: CT CHEST WITHOUT CONTRAST CLINICAL INFORMATION: Acute hypoxia. COMPARISON: November 20, 2021 and chest x-ray of December 14, 2023. TECHNIQUE: Multidetector volumetric CT imaging of the chest was done. Axial MIP volume rendering provided. Sagittal and coronal reformatted images were obtained. This CT examination was performed using dose optimization techniques as appropriate, variously including the following: *Automated exposure control *Adjustment of mA and/or kV according to patient size (this includes techniques or standardized protocols for targeted exams where dose is matched to indication/reason for exam; i.e. extremities or head) *Use of iterative reconstruction technique DLP: 282 mGy-cm FINDINGS: LUNGS: Central airways are patent. There are severe changes of centrilobular and paraseptal emphysema present. There is chronic prominence bronchial wall thickening present as well as bronchiectasis most prominent within the lower lobes and right middle lobe. There is honeycombing present with multilevel. Thick-walled cysts present in a predominantly basilar and subpleural peripheral pattern. There are some small regions of consolidation present within the right middle lobe and lower lobes bilaterally with the appearance of possible organizing pneumonia. The above patterns appeared to be related to chronic interstitial pulmonary fibrosis with appearance of usual interstitial pneumonitis. The regions of opacification could be related to organizing pneumonia which can be seen with differing collagen vascular diseases as well. The chronic interstitial lung disease has a similar appearance to study of November 20, 2021. There has been some increase of a region of peribronchial consolidation within the right middle lobe since the study of November 20, 2021. Calcified granulomas present. Sub-4 mm nodular densities present bilaterally. MEDIASTINUM: Heart normal size. No pericardial effusion. Nonocclusive aortic arch calcification present. No thoracic aortic aneurysm. There is similar mediastinal lymphadenopathy most prominent in the right paratracheal, precarinal, and subcarinal regions stable since study of November 20, 2021. Visualized thyroid gland unremarkable. CORONARY ARTERY CALCIFICATION: Prominent coronary artery calcification is present. PLEURA: There is no pleural effusion. There are some regions of chronic pleural thickening present. No pneumothorax. A few calcified pleural plaques are seen bilaterally. AXILLA: No lymphadenopathy. UPPER ABDOMEN: Cholelithiasis without evidence of acute cholecystitis. No adrenal gland lesion. OSSEOUS STRUCTURES: No suspicious destructive bony lesions identified. CT/CT chest wo IV con IMPRESSION: Severe paraseptal and centrilobular emphysema. Chronic interstitial fibrosis without significant change from prior study of November 20, 2021 but with one small area of consolidation within the right middle lobe which may be acute/subacute related to organizing pneumonia. No significant change in mediastinal lymphadenopathy. Fleischner guidelines were followed.
[2023-12-14] MEDS: Furosemide 40 MG/4 ML VIAL IVPUSH (02:36)
--- NOTE | 2023-12-14 02:40 | ED_ITS ---
HPI - SOB/Dyspnea General Chief Complaint: Dyspnea Stated Complaint: SOB Time Seen by Provider: 12/14/23 02:19 Source: patient and EMS Mode of arrival: EMS Limitations: no limitations History of Present Illness HPI Narrative: Patient comes to the emergency room complaining of shortness of breath. Patient states with the approximately 6 hours ago he started feeling short of breath. The shortness of breath started out with dry cough, then rapidly became significantly worse. Patient states that he was here in the hospital approximately 1 week ago with a CHF exacerbation and his symptoms are exactly the same. Patient denies any increase in sputum production. Complaining of orthopnea and shortness of breath. No chest pain or abdominal pain. No lower extremity edema. Related Data Home Medications Medication Instructions Recorded Confirmed adalimumab 40 mg/0.4 mL 40 mg subcut Q2W 11/20/21 11/30/23 subcutaneous pen kit (Humira(CF) Pen) folic acid 400 mcg tablet 800 mcg PO DAILY 11/20/21 11/30/23 rosuvastatin 10 mg tablet 1 tab PO BEDTIME 11/20/21 11/30/23 timolol maleate 0.5 % eye drops 1 drp ophthalmic (eye) DAILY 11/20/21 11/30/23 tramadol 50 mg tablet 1 tab PO BID PRN Pain, Moderate 11/20/21 11/30/23 aspirin 81 mg tablet,delayed 81 mg PO DAILY 04/18/23 11/30/23 release cholecalciferol (vitamin D3) 25 25 mcg PO DAILY 04/18/23 11/30/23 mcg (1,000 unit) capsule (Vitamin D3) fluticasone furoate 200 1 puff inhalation DAILY 04/18/23 11/30/23 mcg-vilanterol 25 mcg/dose inhalation powder (Breo Ellipta) nitroglycerin 0.4 mg sublingual 0.4 mg sublingual NEEDED PRN 04/18/23 11/30/23 tablet Chest Pain omeprazole 40 mg capsule,delayed 40 mg PO DAILY@0630 06/23/23 11/30/23 release empagliflozin 25 mg tablet 25 mg PO DAILY 11/30/23 11/30/23 (Jardiance) prednisone 5 mg tablet 7.5 mg PO DAILY 11/30/23 11/30/23 warfarin 2.5 mg tablet (Jantoven) 5 mg PO DAILY@1800 11/30/23 11/30/23 Previous Rx's Medication Instructions Recorded levalbuterol HCl 1.25 mg/3 mL 1.25 mg (3 mL) inhalation Q4H PRN 06/26/23 solution for nebulization shortness of breath 30 days #72 mL insulin glargine 100 unit/mL (3 20 unit (0.2 mL) subcut QPM #15 mL 11/07/23 mL) subcutaneous pen (Lantus Solostar U-100 Insulin) digoxin 125 mcg (0.125 mg) tablet 0.125 mg PO Q2D #30 tabs 12/02/23 metoprolol tartrate 25 mg tablet 25 mg PO BID #60 tabs 12/02/23 sacubitril 49 mg-valsartan 51 mg 1 tab PO BID #30 tabs 12/02/23 tablet (Entresto) bumetanide 1 mg tablet 1 mg PO BID #60 tabs 12/03/23 Allergies Allergy/AdvReac Type Severity Reaction Status Date / Time No Known Allergies Allergy Unknown NOT Verified 11/30/23 02:44 APPLICABLE Review of Systems 2 Review of Systems: Constitutional : No Weight loss, No Fever, No Chills, No Night Sweats, No Fatigue, No Malaise ENT/Mouth : No Hearing loss, No Ear Pain, No Nasal Congestion, No Sinus Pain, No Hoarseness, No sore throat, No Rhinorrhea, No Swallowing Difficulty Eyes: No Eye Pain, No Swelling, No Redness, No Foreign Body, No Discharge, No Vision Changes Cardiovascular : No Chest Pain, complaining of dyspnea with exertion, complaining of orthopnea, dry cough, no lower extremity edema Respiratory : Complaining of dry cough, No Sputum, No Wheezing, No Smoke Exposure, No Dyspnea Gastrointestinal : No Nausea, No Vomiting, No Diarrhea, No Constipation, No abdominal Pain, No Hematochezia, No Melena Genitourinary : no irregular bleeding, No Dysuria, No Urinary Frequency, No Hematuria, No Urinary Incontinence, No Urgency, No Flank Pain, No Urinary Flow Changes, No Hesitancy Musculoskeletal : No joint pain, No Myalgias, No Joint Swelling Skin : No Skin Lesions, No rash Neuro : No Weakness, No Numbness, No Paresthesias, No Loss of Consciousness, No Dizziness, No Headache Psych : No Anxiety/Panic, No Depression, No SI/HI/AH/VH, No Social Issues, Heme/Lymph: No Bruising, No Bleeding,No Lymphadenopathy Endocrine : No Polyuria, No Polydipsia, No Temperature Intolerance [facility] Past Medical History Onset Date is defined in the Problem List Problems that require an onset date and time if occurred within 24 hrs of arrival to the ED Aortic Dissection and Rupture; Neurologic impairment; Cardiopulmonary Arrest; Endotracheal Intubation; Insertion or Replacement of Mechanical Circulatory Assist Device Medical History Acute exacerbation of CHF (congestive heart failure) SVT (supraventricular tachycardia) CHF exacerbation Chronic anticoagulation Atrial fibrillation Chronic hypoxemic respiratory failure Hypertension Rheumatoid arthritis Lymphadenopathy ILD (interstitial lung disease) COPD exacerbation Surgical History Hx of colonoscopy Social History Social History Household Members: Spouse Housing: Apartment Do you presently have visiting nurse or other home services: Yes ([employer] 3hrs/daily) Alcohol intake: never Patient Tobacco Use Status: Former Tobacco user Quit Date: 23 years ago Tobacco use type: Cigarette Years Smoked: 40 Smoked in Last 30 Days: No e-Cigarette/Vaping Use: Former Use Use of substances other than those prescribed or required for medical reasons: No Advance Directives: Yes Advance Directives on File: Yes Advance Directives Date on File: 06/27/23 service: No Current occupational status: retired Physical Exam 2 Vital Signs: Vital Signs: Last Vital Signs Pulse 95 12/14/23 05:12 Resp 16 12/14/23 05:12 BP 120/57 L 12/14/23 05:12 Pulse Ox 95 12/14/23 05:12 O2 Del Method CPAP 12/14/23 05:12 Oxygen Flow Rate 15 12/14/23 02:15 BMI result Body Mass Index 27.7 Const: Other: Appearance: Alert. Oriented X3. In respiratory distress Eyes: Pupils equal, round and reactive to light. ENT: Pharynx normal. Neck: Normal inspection. Neck supple. No lymph nodes noted. No crepitus CVS: Normal heart rate and rhythm. Pulses normal. Normal S1 and S2 Respiratory: Patient tachypneic, oxygen saturation 80% on 6 L. oxygen saturation 94% on 15 L. Abdomen: Soft and nontender. No rigidity. No distention. Skin: Skin warm and dry. Normal skin color. Normal skin turgor. Extremities: No lower extremity edema. No Lacerations. No Rash Neuro: Oriented X 3. No motor deficit. No sensory deficit. Moving all extremities. No slurred speech. CN 2 through 12 grossly intact Psych: calm, cooperative, normal affect Course Course Course Narrative: - Medications Administered Generic Name Dose Route Start Last Admin Trade Name Freq PRN Reason Stop Dose Admin Vancomycin HCl 2,000 mg in 520 mls @ 250 mls/hr 12/14/23 03:46 12/14/23 04:35 Vancomycin/Ns IV 12/14/23 05:50 250 mls/hr ONCE ONE Administration Discontinued Medications Generic Name Dose Route Start Last Admin Trade Name Freq PRN Reason Stop Dose Admin Furosemide 40 mg 12/14/23 02:26 12/14/23 02:36 Furosemide 40 Mg/4 Ml Vial IVPUSH 12/14/23 02:27 40 mg ONCE ONE Administration Protocol Piperacillin Sod/Tazobactam 50 mls @ 100 mls/hr 12/14/23 03:46 12/14/23 04:35 Sod 3.375 gm/ Sodium Chloride IV 12/14/23 04:15 Infused ONCE ONE Infusion Medical Decision Making Medical Decision Making [facility] Narrative: -my interpretation of EKG: Sinus tachycardia, heart rate 101, nonspecific ST segment depressions V1 through V3 and T-wave inversions in the same leads, no EKG changes from previous EKG on December 01 2023, right bundle-branch block, QTC 482 -on physical exam, patient has bilateral crackles, likely having a CHF exacerbation. Patient given IV Lasix 40 mg and patient started on BiPAP. -my interpretation of labs: Patient's BNP elevated more than average. Patient having a CHF exacerbation and responding well to Lasix and BiPAP. White blood cell count 17.5, likely secondary to steroid use versus underlying infiltrate. -my interpretation of chest x-ray: CHF, possible underlying infiltrates -03:47: My interpretation of chest x-ray: Patient's chest x-ray shows bilateral infiltrates. Patient's white blood cell count elevated 17.5. Patient will be empirically be treated with antibiotics for possible HCAP, sepsis is not suspected. At this time, patient's blood pressure is stable. Patient is still on BiPAP, improving after Lasix and BiPAP, shortness of breath likely secondary to CHF exacerbation. Giving any fluids at this time, would actually deteriorate the patient -at 04:15, we attempted weaning the patient off. Patient's oxygen saturation dropped to the low 80s on 6 L, on a non-rebreather 15 L, patient's oxygen increased to the mid 80s. Patient was put back on CPAP. On CPAP, patient's oxygenation is 94% and patient states that he feels better with the mask. -at this time patient is ready for admission, ideally to the ICU. However,, we do not have ICU beds, but in about 1 hour, we will know if there will be nursing staff available in the morning for a 07:00 admission. -05:33, nursing farm management supervisor confirmed that we do have ICU beds at 07:00. -I discussed the patient with Dr. Toledo, patient being admitted to ICU Differential Diagnosis Differential Diagnoses: The differential diagnosis associated with the presentation includes (CHF, pneumonia, COPD) Admission/Observation Consideration of admission/observation: Escalation of care including admission/observation considered Consult Healthcare Provider Management of the patient was discussed with: Hospitalist Lab Data MDM Lab Attestation statement: I reviewed the patient's lab results. 12/14/23 03:16 12/14/23 03:23 Labs: Lab Results 12/14/23 12/14/23 12/14/23 Range/Units 03:16 03:17 03:21 WBC 17.5 H (4.8-10.8) X10*3/uL RBC 5.35 D (4.60-5.80) X10*6/uL Hgb 14.3 D (14.0-18.0) g/dl Hct 45.8 D (42.0-52.0) % MCV 85.6 (80.0-98.0) fL MCH 26.7 L (27.0-33.0) pg MCHC 31.2 (31.0-36.0) g/dl RDW 19.1 H (11.0-16.0) % Plt Count 239 (160-400) X10*3/uL MPV 11.0 (9.4-12.4) fL Immature Gran % (Auto) 0.3 (0.0-0.4) % Neut % (Auto) 88.4 H (45-73) % Lymph % (Auto) 7.1 L (20-40) % [place] % (Auto) 3.8 (2-11) % Eos % (Auto) 0.2 (0-4) % Baso % (Auto) 0.2 (0-2) % Lymph # (Auto) 1.3 (1.2-4.9) X10*3/uL [place] # (Auto) 0.7 (0.1-1.2) X10*3/uL Eos # (Auto) 0.0 (0.0-0.4) X10*3/uL Baso # (Auto) 0.0 (0.0-0.2) X10*3/uL Abs Immat Gran (auto) 0.06 H (0.00-0.03) X10*3/uL Absolute Neuts (auto) 15.4 H (2.0-8.3) x10*3/uL Absolute Nucleated RBC 0.000 (0.0-0.012) X10*3/uL Nucleated RBC % (auto) 0.0 (0.0-0.2) /100WBC PT 32.2 H D (11.1-13.3) SEC INR 2.6 H (0.9-1.1) VBG pH 7.51 H (7.32-7.43) VBG pCO2 32 mmHg VBG pO2 123 mmHg VBG HCO3 26 (22-26) mmol/L VBG O2 Saturation 100.0 % VBG Base Excess 4.5 mmol/L Sodium (135-145) mmol/L Potassium (3.3-5.1) mmol/L Chloride (96-108) mmol/L Carbon Dioxide (22-29) mmol/L Anion Gap (12-20) BUN (9-16) mg/dL Creatinine (0.5-1.4) mg/dL Estim Creat Clear Calc Estimated GFR Random Glucose (60-115) mg/dL Lactic Acid 1.9 (0.5-2.0) mmol/L Calcium (8.4-10.2) mg/dL Magnesium (1.6-2.6) mg/dL Total Bilirubin (0.0-1.0) mg/dL Direct Bilirubin (0.0-0.5) mg/dL AST (5-37) U/L ALT (0-40) U/L Alkaline Phosphatase (39-117) U/L Troponin I High Sens 45.2 H (<3.5-35.0) ng/L B-Natriuretic Peptide 884 H (<100) pg/mL Total Protein (6.5-8.0) g/dL Albumin (3.5-5.0) g/dL COVID-19 (ZACK) Negative (Negative) COVID-19 Clin Com See Note Influenza Type A (JACOB) Negative (Negative) Influenza Type B (JACOB) Negative (Negative) Influenza A & B Note See Note 12/14/23 Range/Units 03:23 WBC (4.8-10.8) X10*3/uL RBC (4.60-5.80) X10*6/uL Hgb (14.0-18.0) g/dl Hct (42.0-52.0) % MCV (80.0-98.0) fL MCH (27.0-33.0) pg MCHC (31.0-36.0) g/dl RDW (11.0-16.0) % Plt Count (160-400) X10*3/uL MPV (9.4-12.4) fL Immature Gran % (Auto) (0.0-0.4) % Neut % (Auto) (45-73) % Lymph % (Auto) (20-40) % [place] % (Auto) (2-11) % Eos % (Auto) (0-4) % Baso % (Auto) (0-2) % Lymph # (Auto) (1.2-4.9) X10*3/uL [place] # (Auto) (0.1-1.2) X10*3/uL Eos # (Auto) (0.0-0.4) X10*3/uL Baso # (Auto) (0.0-0.2) X10*3/uL Abs Immat Gran (auto) (0.00-0.03) X10*3/uL Absolute Neuts (auto) (2.0-8.3) x10*3/uL Absolute Nucleated RBC (0.0-0.012) X10*3/uL Nucleated RBC % (auto) (0.0-0.2) /100WBC PT (11.1-13.3) SEC INR (0.9-1.1) VBG pH (7.32-7.43) VBG pCO2 mmHg VBG pO2 mmHg VBG HCO3 (22-26) mmol/L VBG O2 Saturation % VBG Base Excess mmol/L Sodium 137 (135-145) mmol/L Potassium 3.9 (3.3-5.1) mmol/L Chloride 99 (96-108) mmol/L Carbon Dioxide 24 (22-29) mmol/L Anion Gap 18 (12-20) BUN 29 H (9-16) mg/dL Creatinine 1.55 H (0.5-1.4) mg/dL Estim Creat Clear Calc 41.1 Estimated GFR 43 Random Glucose 161 H (60-115) mg/dL Lactic Acid (0.5-2.0) mmol/L Calcium 10.0 (8.4-10.2) mg/dL Magnesium 1.8 (1.6-2.6) mg/dL Total Bilirubin 0.5 (0.0-1.0) mg/dL Direct Bilirubin 0.2 (0.0-0.5) mg/dL AST 17 (5-37) U/L ALT 18 (0-40) U/L Alkaline Phosphatase 100 (39-117) U/L Troponin I High Sens (<3.5-35.0) ng/L B-Natriuretic Peptide (<100) pg/mL Total Protein 8.4 H (6.5-8.0) g/dL Albumin 3.9 (3.5-5.0) g/dL COVID-19 (ZACK) (Negative) COVID-19 Clin Com Influenza Type A (JACOB) (Negative) Influenza Type B (JACOB) (Negative) Influenza A & B Note Independent Interpretation I performed an independent interpretation of an: EKG Radiology Impression Discussion of test interpretation with radiology: I have reviewed the radiologist's reading. Radiologist Impression: The lung volumes are low. The cardiomediastinal silhouette is stable. There are increased markings/patchy infiltrative change bilateral mid to lower lung lopez. Costophrenic angles are minimally blunted. The lung upper lung lopez are clear. The bony structures and soft tissues are unremarkable. XR/XR chest 1V IMPRESSION: Bilateral mid to lower lung field increased markings/patchy infiltrative change. A similar finding was seen previously and is stable. No significant interval change. Critical Care Time Critical Care Time Critical Care Time: Yes Total Critical Care Time: 90 Attestation: I have personally provided critical care time. Time includes review of lab data, radiology results, discussion with consultants, and monitoring for potential decompensation. Intervention performed as documented. Discharge Plan Discharge Clinical Impression: CHF (congestive heart failure), Pneumonia Patient Disposition: Admitted As Inpatient Prescriptions: No Action folic acid 400 mcg tablet 800 mcg PO DAILY tramadol 50 mg tablet 1 tab PO BID PRN (Reason: Pain, Moderate) timolol maleate 0.5 % drops 1 drp ophthalmic (eye) DAILY rosuvastatin 10 mg tablet 1 tab PO BEDTIME Humira(CF) Pen 40 mg/0.4 mL pen injector kit 40 mg subcut Q2W Rx Instructions: WED aspirin 81 mg Tablet,Delayed Release (Dr/Ec) 81 mg PO DAILY nitroglycerin 0.4 mg tablet, sublingual 0.4 mg sublingual NEEDED PRN (Reason: Chest Pain) cholecalciferol (vitamin D3) [Vitamin D3] 25 mcg (1,000 unit) Capsule 25 mcg PO DAILY fluticasone furoate-vilanterol [Breo Ellipta] 200-25 mcg/dose blister with device 1 puff inhalation DAILY omeprazole 40 mg capsule,delayed release(DR/EC) 40 mg PO DAILY@0630 levalbuterol HCl 1.25 mg/3 mL Solution For Nebulization 1.25 mg inhalation Q4H PRN (Reason: shortness of breath ) 30 Days Qty: 72 0RF insulin glargine [Lantus Solostar U-100 Insulin] 100 unit/mL (3 mL) insulin pen 20 unit subcut QPM Qty: 15 2RF prednisone 5 mg tablet 7.5 mg PO DAILY warfarin [Jantoven] 2.5 mg tablet 5 mg PO DAILY@1800 Jardiance 25 mg tablet 25 mg PO DAILY digoxin 125 mcg (0.125 mg) Tablet 0.125 mg PO Q2D Qty: 30 0RF metoprolol tartrate 25 mg Tablet 25 mg PO BID Qty: 60 2RF Protocol: Hold for SBP/HR < HOLD for SBP < : 90 HOLD for HR < : 60 Entresto 49-51 mg Tablet 1 tab PO BID Qty: 30 1RF Protocol: Hold for SBP< HOLD for SBP < : 90 bumetanide 1 mg tablet 1 mg PO BID Qty: 60 0RF
--- NOTE | 2023-12-14 03:11 | PC.NURSE ---
Assumed care of pt. Pt sitting upright on stretcher, CPAP in place, pt denies any acute distress at thsi time.
[2023-12-14 03:24] LABS: MANUAL DIFF FLAG NO
[2023-12-14 03:25] LABS: Basophils Percent Auto 0.2 % (0-2); Eosinophils Percent Auto 0.2 % (0-4); Hematocrit 45.8 % (42.0-52.0); Hemoglobin 14.3 g/dl (14.0-18.0); Imm Gran Abs Auto 0.06 X10*3/uL (0.00-0.03); Imm Gran Pct Auto 0.3 % (0.0-0.4); Lymphocytes Absolute Auto 1.3 X10*3/uL (1.2-4.9); Lymphocytes Percent Auto 7.1 % (20-40); Mean Corpuscular HGB Conc 31.2 g/dl (31.0-36.0); Mean Corpuscular Hemoglobin 26.7 pg (27.0-33.0); Mean Corpuscular Volume 85.6 fL (80.0-98.0); Monocytes Absolute Auto 0.7 X10*3/uL (0.1-1.2); Monocytes Percent Auto 3.8 % (2-11); Neutrophils Absolute Auto 15.4 x10*3/uL (2.0-8.3); Neutrophils Percent Auto 88.4 % (45-73); Platelet Count 239 X10*3/uL (160-400); Red Blood Count 5.35 X10*6/uL (4.60-5.80); Red Cell Distribution Width 19.1 % (11.0-16.0); White Blood Count 17.5 X10*3/uL (4.8-10.8)
[2023-12-14 03:29] LABS: INTERNATIONAL NORM RATIO 2.6 (0.9-1.1); Prothrombin Time 32.2 SEC (11.1-13.3); Venous Blood Gas Refer to POC result
[2023-12-14 03:30] LABS: VBG Base Excess 4.5 mmol/L; VBG HCO3 26 mmol/L (22-26); VBG pCO2 32 mmHg; VBG pH 7.51 (7.32-7.43); VBG pO2 123 mmHg
[2023-12-14 03:33] LABS: Lactic Acid 1.9 mmol/L (0.5-2.0)
--- NOTE | 2023-12-14 03:41 | PC.NURSE ---
Call placed per pt to to notify her that pt is here.
[2023-12-14 03:42] LABS: Alanine Aminotransferase 18 U/L (0-40); Albumin Level 3.9 g/dL (3.5-5.0); Alkaline Phosphatase 100 U/L (39-117); Anion Gap 18 (12-20); Aspartate Amino Transferase 17 U/L (5-37); Bilirubin Direct 0.2 mg/dL (0.0-0.5); Bilirubin Total 0.5 mg/dL (0.0-1.0); Blood Urea Nitrogen 29 mg/dL (9-16); Carbon Dioxide 24 mmol/L (22-29); Chloride 99 mmol/L (96-108); Creatinine Clr Calc Pharmacy 41.1; Estimated Glomerular Filt Rate 43; Glucose Random 161 mg/dL (60-115); Magnesium 1.8 mg/dL (1.6-2.6); Potassium 3.9 mmol/L (3.3-5.1); Sodium 137 mmol/L (135-145); Total Protein 8.4 g/dL (6.5-8.0)
[2023-12-14 03:44] LABS: Troponin-I High Sensitivity 45.2 ng/L (<3.5-35.0)
[2023-12-14 03:44] LABS: COVID-19 Test Negative (Negative); IDNOW Serial# 08D9AD1C; IDNOW Serial# 152EDE1D; Influenza A Negative (Negative); Influenza B2 Negative (Negative)
[2023-12-14 03:48] LABS: B Type Natriuretic Peptide 884 pg/mL (<100)
[2023-12-14] MEDS: Piperacillin Sodium/Tazobactam 3.375 GM in 0.9 % Sodium Chloride 50 ML IV (04:02)
--- NOTE | 2023-12-14 04:02 | PC.RT ---
Pt trialed off cpap and placed on 10L oxymask, pt desatted to 84% despite deep breathing exercises. O2 increased to 14L sats up to 87% . pt placed back on cpap on previous settings cpap [id number] 50% sats now 92%. Rn and family at bedside. aware.
[2023-12-14] MEDS: Albuterol/Iprat 2.5/0.5MG 3 ML AMPUL.NEB INHALE ×3 (07:40→20:21)
[2023-12-14] MEDS: Fluticasone/Umeclidinium/Vilanterol 100/62.5/25 BLST.W.DEV 1 PUFF INHALE (08:07)
[2023-12-14 08:23] LABS: Glucose, Whole Blood 229 mg/dL (60-115)
--- NOTE | 2023-12-14 08:28 | PC.NURSE ---
RN TO RN REPORT GIVEN TO CHUCK. PT AWARE OF PLAN OF CARE FOR TRANSFER TO ICU VIA STRETCHER.
[2023-12-14] MEDS: Omeprazole 40 MG CAPSULE.DR PO (08:32)
--- NOTE | 2023-12-14 08:34 | PC.NURSE ---
0829 - VSS 108/[id number]%ON CPAP AT 50%.
--- NOTE | 2023-12-14 08:53 | PHA.MEDREC ---
Pharmacy Consult ? Medication Reconciliation Pharmacy has completed the medication reconciliation. spoke with family member over the phone who confirmed patients medications.
[2023-12-14] MEDS: Bumetanide 25 MG in Container,Empty 0 ML IVCONT (09:42)
--- NOTE | 2023-12-14 09:47 | P.HPCC_ITS ---
History of Present Illness Date of Service: 12/14/23 Chief Complaint: Shortness of breath 78-year-old gentleman with underlying cor pulmonale, advanced COPD, IPF, prior CAD with [place], rheumatoid arthritis admitted on 12/14/2023 with dyspnea. On ER evaluation leukocytosis with elevated BNP. Patient started on empiric diuretic and antibiotic regimen. He required CPAP to maintain normal oximetry and was admitted to intensive care unit. Review of Systems 2 Constitutional: Constitutional: Denies daytime sleepiness, Denies excessive sweating, Denies fatigue, Denies fever(s), Denies lethargy, Denies malaise, Denies night sweats, Denies snoring and Denies weight loss Eyes: Eyes: Denies blurry vision and Denies itchy eyes ENT: Denies nasal congestion, Denies post nasal drip, Denies sinus pain, Denies sinus pressure and Denies other ( Thrush) Cardiovascular: Cardiovascular: Denies chest pain, Reports pedal edema, Denies dyspnea, Reports dyspnea on exertion, Reports orthopnea and Denies paroxysmal nocturnal dyspnea Respiratory: Respiratory: Denies cough, Denies hemoptysis, Denies excessive phlegm production, Denies dyspnea, Reports dyspnea on exertion, Denies snoring and Denies wheezing Gastrointestinal: Gastrointestinal: Denies abdominal pain and Denies heartburn Musculoskeletal: Musculoskeletal: Denies myalgias, Denies arthralgias and Denies joint swelling Integumentary/Breasts: Skin/Breast: Denies rash Neurologic: Denies memory loss and Denies seizure-like activity Psychiatric: Psychiatric: Denies abnormal sleep pattern, Denies anxiety and Denies memory loss Endocrine: Endocrine: Denies excessive sweating, Denies fatigue and Denies heat intolerance Hematologic/Lymphatic: Hematologic/Lymphatic: Denies easy bruising Allergic/Immunologic: Allergic/Immunologic: Denies itchy eyes, Denies seasonal rhinorrhea and Denies wheezing PMFSH Past Medical History Medical History Acute exacerbation of CHF (congestive heart failure) SVT (supraventricular tachycardia) CHF exacerbation Chronic anticoagulation Atrial fibrillation Chronic hypoxemic respiratory failure Hypertension Rheumatoid arthritis Lymphadenopathy ILD (interstitial lung disease) COPD exacerbation Surgical History Surgical History Hx of colonoscopy Social History Social History Household Members: Spouse Housing: Apartment Do you presently have visiting nurse or other home services: Yes ([employer] 3hrs/daily) Alcohol intake: never Patient Tobacco Use Status: Former Tobacco user Quit Date: 23 years ago Tobacco use type: Cigarette Years Smoked: 40 Smoked in Last 30 Days: No e-Cigarette/Vaping Use: Former Use Use of substances other than those prescribed or required for medical reasons: No Advance Directives: Yes Advance Directives on File: Yes Advance Directives Date on File: 06/27/23 service: No Current occupational status: retired [employer] Allergies Allergy/AdvReac Type Severity Reaction Status Date / Time No Known Allergies Allergy Unknown NOT Verified 11/30/23 02:44 APPLICABLE Active Medications: Current Medications Albuterol/Ipratropium (Albuterol/Iprat 2.5/0.5mg 3 Ml Ampul.Neb) 3 ml INHALE RQ6H WHILE AWAKE [facility] Last Admin: 12/14/23 07:40 Dose: 3 ml Fluticasone/Umeclidinium/Vilanterol (Fluticasone/Umeclidinium/Vilanterol 100/62.5/25 Blst.W.Dev) 1 puff INHALE RDAILY [facility] Last Admin: 12/14/23 08:07 Dose: 1 puff Bumetanide 25 mg/ IV (Miscellaneous Supplies) 100 mls @ 1 mls/hr IVCONT .Q24H [facility] Insulin Glargine (Insulin Glargine,Hum.Rec.Anlog 100 Unit/Ml 10 Ml Vial) 10 unit SUBCUT DAILY [facility] Insulin Human Lispro (Insulin Lispro 100 Unit/Ml 3 Ml Vial) 0 unit SUBCUT QIDACHS [facility]; Protocol Omeprazole (Omeprazole 40 Mg Capsule.Dr) 40 mg PO DAILY@0630 [facility] Last Admin: 12/14/23 08:32 Dose: 40 mg Home Medications Medication Instructions Recorded Confirmed Last Taken Type adalimumab 40 mg/0.4 mL 40 mg subcut Q2W 11/20/21 12/14/23 11/16/23 History subcutaneous pen kit (Humira(CF) Pen) folic acid 400 mcg tablet 400 mcg PO DAILY 11/20/21 12/14/23 Unknown History rosuvastatin 10 mg tablet 1 tab PO BEDTIME 11/20/21 12/14/23 Unknown History timolol maleate 0.5 % eye drops 1 drp ophthalmic (eye) DAILY 11/20/21 12/14/23 Unknown History tramadol 50 mg tablet 1 tab PO BID PRN Pain, Moderate 11/20/21 12/14/23 06/23/23 History aspirin 81 mg tablet,delayed 81 mg PO DAILY 04/18/23 12/14/23 Unknown History release fluticasone furoate 200 1 puff inhalation DAILY 04/18/23 12/14/23 Unknown History mcg-vilanterol 25 mcg/dose inhalation powder (Breo Ellipta) nitroglycerin 0.4 mg sublingual 0.4 mg sublingual NEEDED PRN 04/18/23 12/14/23 Unknown History tablet Chest Pain omeprazole 40 mg capsule,delayed 40 mg PO DAILY@0630 06/23/23 12/14/23 Unknown History release empagliflozin 25 mg tablet 25 mg PO DAILY 11/30/23 12/14/23 Unknown History (Jardiance) prednisone 5 mg tablet 7.5 mg PO DAILY 11/30/23 12/14/23 Unknown History warfarin 2.5 mg tablet (Jantoven) 5 mg PO DAILY@1800 11/30/23 12/14/23 Unknown History albuterol sulfate 2.5 mg/3 mL 2.5 mg inhalation Q4H PRN wheezing 12/14/23 12/14/23 Unknown History (0.083 %) solution for nebulization albuterol sulfate 90 mcg/actuation 2 puff inhalation Q4H PRN wheezing 12/14/23 12/14/23 Unknown History aerosol inhaler (Ventolin HFA) Physical Exam 2 Vital Signs: Vital Signs: Last Vital Signs Temp 97.0 F 12/14/23 09:00 Pulse 68 12/14/23 09:00 Resp 19 12/14/23 09:00 BP 108/56 L 12/14/23 09:00 Pulse Ox 96 12/14/23 09:00 O2 Del Method BiPAP 12/14/23 09:00 FiO2 50 12/14/23 09:00 Oxygen Flow Rate 15 12/14/23 02:15 BMI result Body Mass Index 27.7 Const: General: no acute distress and alert Nutritional Appearance: not obese Orientation/consciousness: Other orientation findings ( oriented) HEENT: Head: Yes atraumatic Eyes: General: appearance normal, both eyes and all related structures S clerae: sclerae normal EOM: EOMs intact bilaterally Neck: Neck: Yes supple Lymphatic: no lymphadenopathy noted Resp: Effort & Inspection: normal respiratory effort and no use of accessory muscles Auscultation: clear to auscultation bilaterally Cardio: Rate: regular rate Rhythm: regular rhythm Heart sounds: no gallops, no murmurs and no rubs Skin: General skin exam: other ( warm) Extrem: General: No clubbing, No cyanosis and Yes edema (Trace bilateral) Results Labs 12/14/23 03:16 12/14/23 03:23 Labs: Laboratory Results - last 24 hr 12/14/23 12/14/23 12/14/23 03:16 03:17 03:21 MCV 85.6 MCH 26.7 L MCHC 31.2 RDW 19.1 H Plt Count 239 MPV 11.0 Immature Gran % (Auto) 0.3 Neut % (Auto) 88.4 H Lymph % (Auto) 7.1 L [place] % (Auto) 3.8 Eos % (Auto) 0.2 Baso % (Auto) 0.2 Lymph # (Auto) 1.3 [place] # (Auto) 0.7 Eos # (Auto) 0.0 Baso # (Auto) 0.0 Abs Immat Gran (auto) 0.06 H Absolute Neuts (auto) 15.4 H Absolute Nucleated RBC 0.000 Nucleated RBC % (auto) 0.0 PT 32.2 H D INR 2.6 H VBG pH 7.51 H VBG pCO2 32 VBG pO2 123 VBG HCO3 26 VBG O2 Saturation 100.0 VBG Base Excess 4.5 Anion Gap Estim Creat Clear Calc Estimated GFR POC Glucose Random Glucose Lactic Acid 1.9 Calcium Magnesium Total Bilirubin Direct Bilirubin AST ALT Alkaline Phosphatase B-Natriuretic Peptide 884 H Total Protein Albumin COVID-19 (ZACK) Negative COVID-19 Clin Com See Note Influenza Type A (JACOB) Negative Influenza Type B (JACOB) Negative Influenza A & B Note See Note 12/14/23 12/14/23 03:23 08:19 MCV MCH MCHC RDW Plt Count MPV Immature Gran % (Auto) Neut % (Auto) Lymph % (Auto) [place] % (Auto) Eos % (Auto) Baso % (Auto) Lymph # (Auto) [place] # (Auto) Eos # (Auto) Baso # (Auto) Abs Immat Gran (auto) Absolute Neuts (auto) Absolute Nucleated RBC Nucleated RBC % (auto) PT INR VBG pH VBG pCO2 VBG pO2 VBG HCO3 VBG O2 Saturation VBG Base Excess Anion Gap 18 Estim Creat Clear Calc 41.1 Estimated GFR 43 POC Glucose 229 H Random Glucose 161 H Lactic Acid Calcium 10.0 Magnesium 1.8 Total Bilirubin 0.5 Direct Bilirubin 0.2 AST 17 ALT 18 Alkaline Phosphatase 100 B-Natriuretic Peptide Total Protein 8.4 H Albumin 3.9 COVID-19 (ZACK) COVID-19 Clin Com Influenza Type A (JACOB) Influenza Type B (JACOB) Influenza A & B Note Imaging Radiologist's Impressions: Impressions Chest X-Ray 12/14/23 02:35 IMPRESSION: Bilateral mid to lower lung field increased markings/patchy infiltrative change. A similar finding was seen previously and is stable. No significant interval change. Chest CT 12/14/23 08:03 IMPRESSION: Severe paraseptal and centrilobular emphysema. Chronic interstitial fibrosis without significant change from prior study of November 20, 2021 but with one small area of consolidation within the right middle lobe which may be acute/subacute related to organizing pneumonia. No significant change in mediastinal lymphadenopathy. Fleischner guidelines were followed. Assessment and Plan (1) Acute respiratory failure with hypoxia: Status: Resolved (2) Acute on chronic right heart failure: Status: Resolved (3) COPD (chronic obstructive pulmonary disease): Status: Acute (4) IPF (idiopathic pulmonary fibrosis): Status: Acute Plan Assessment: 78-year-old gentleman with underlying advanced COPD, ILD, and cor pulmonale admitted with dyspnea and acute hypoxia Plan: Neuro: No acute issues. Cardiac: Cor pulmonale with acute exacerbation, continue with diuresis. Underlying AFib on anticoagulation Pulmonary: Acute hypoxic respiratory failure secondary to exacerbation of underlying congestive heart failure requiring noninvasive positive pressure ventilatory support. Continue to titrate off as tolerated. Underlying advanced COPD and IPF. Renal: No acute issues. Endo: No acute issues. Underlying diabetes mellitus. GI: No acute issues. ID: No acute issues Heme/Onc: No acute issues. Psych: No acute issues. Miscellaneous: No acute issues. Prophylaxis: Coumadin, PPI Diet: Cardiac Critical care time spent: 60 minutes
--- NOTE | 2023-12-14 09:59 | MHC.CM.PN ---
IMM DELIVERED. CM MET WITH PT/BROKERAGE MANAGER. PT LIVES WITH SPOUSE/HCP. USES [facility] FOR MOBILITY. [facility] PT ACTIVE WITH [facility] AND HAS SENIOR MANAGER ASSET PROTECTION SERVICES [facility]IA [facility] (1 HOUR/DAY) . +HCP ON FILE. PCP DR. TAM JOSEPH DP: HOME AND RESUME PREVIOUS SERVICES. RETURN REFERRAL SENT TO [facility]. PT HAS OWN RIDE HOME ON RECOVERY. CM WILL CONTINUE TO FOLLOW FOR ANY CHANGE IN DC PLAN/NEEDS.
[2023-12-14] MEDS: Insulin Glargine,Hum.rec.anlog 100 UNIT/ML 10 ML VIAL 10 UNIT SUBCUT (10:13)
[2023-12-14] MEDS: predniSONE 2.5 MG TABLET 7.5 MG PO (10:15)
[2023-12-14 11:07] LABS: Glucose, Whole Blood 256 mg/dL (60-115)
[2023-12-14 11:34] LABS: D Dimer High Sensitivity 338 NG/ML
[2023-12-14] MEDS: Insulin Lispro 100 UNIT/ML 3 ML VIAL SUBCUT ×2 (12:06→16:43)
[2023-12-14 16:11] LABS: Glucose, Whole Blood 254 mg/dL (60-115)
[2023-12-14] MEDS: Warfarin Sodium 5 MG TABLET PO (17:38)
[2023-12-14 18:17] LABS: Anion Gap 21 (12-20); Blood Urea Nitrogen 34 mg/dL (9-16); Calcium 10.8 mg/dL (8.4-10.2); Carbon Dioxide 27 mmol/L (22-29); Chloride 97 mmol/L (96-108); Creatinine Clr Calc Pharmacy 31.2; Estimated Glomerular Filt Rate 32; Glucose Random 235 mg/dL (60-115); Potassium 5.3 mmol/L (3.3-5.1); Sodium 140 mmol/L (135-145)
[2023-12-14 21:20] LABS: Glucose, Whole Blood 145 mg/dL (60-115)
[2023-12-14] MEDS: Sildenafil Citrate 20 MG TABLET PO (22:22)
[2023-12-15] VITALS (31 sets, daily range): BP systolic 97–132; BP diastolic 45–70; PULSE 66–177; RESP 11–25; TEMP 36.2–36.9; O2SAT 88–98; BMI 26.6
[2023-12-15 05:47] LABS: VBG Base Excess 6.2 mmol/L; VBG HCO3 30 mmol/L (22-26); VBG pCO2 42 mmHg; VBG pH 7.46 (7.32-7.43); VBG pO2 32 mmHg
[2023-12-15 05:50] LABS: MANUAL DIFF FLAG NO
[2023-12-15] MEDS: Omeprazole 40 MG CAPSULE.DR PO (05:50)
[2023-12-15 05:51] LABS: Venous Blood Gas Refer to POC result
[2023-12-15 05:53] LABS: Basophils Percent Auto 0.1 % (0-2); Hemoglobin 13.8 g/dl (14.0-18.0); Imm Gran Abs Auto 0.11 X10*3/uL (0.00-0.03); Imm Gran Pct Auto 0.6 % (0.0-0.4); Lymphocytes Absolute Auto 2.2 X10*3/uL (1.2-4.9); Lymphocytes Percent Auto 11.4 % (20-40); Mean Corpuscular HGB Conc 30.7 g/dl (31.0-36.0); Mean Corpuscular Hemoglobin 26.7 pg (27.0-33.0); Mean Corpuscular Volume 87.2 fL (80.0-98.0); Mean Platelet Volume 11.5 fL (9.4-12.4); Monocytes Absolute Auto 1.2 X10*3/uL (0.1-1.2); Neutrophils Absolute Auto 15.7 x10*3/uL (2.0-8.3); Neutrophils Percent Auto 81.9 % (45-73); Platelet Count 242 X10*3/uL (160-400); Red Blood Count 5.16 X10*6/uL (4.60-5.80); Red Cell Distribution Width 18.9 % (11.0-16.0); White Blood Count 19.2 X10*3/uL (4.8-10.8)
[2023-12-15 06:01] LABS: INTERNATIONAL NORM RATIO 3.4 (0.9-1.1); Prothrombin Time 41.2 SEC (11.1-13.3)
[2023-12-15 06:11] LABS: Anion Gap 18 (12-20); Blood Urea Nitrogen 41 mg/dL (9-16); Calcium 10.4 mg/dL (8.4-10.2); Carbon Dioxide 28 mmol/L (22-29); Chloride 98 mmol/L (96-108); Creatinine Clr Calc Pharmacy 36.6; Estimated Glomerular Filt Rate 38; Glucose Random 122 mg/dL (60-115); Phosphorus 4.4 mg/dL (2.7-4.5); Potassium 4.1 mmol/L (3.3-5.1); Sodium 140 mmol/L (135-145)
[2023-12-15] MEDS: Albuterol/Iprat 2.5/0.5MG 3 ML AMPUL.NEB INHALE ×3 (07:32→19:15)
[2023-12-15 07:34] LABS: Glucose, Whole Blood 124 mg/dL (60-115)
[2023-12-15] MEDS: Fluticasone/Umeclidinium/Vilanterol 100/62.5/25 BLST.W.DEV 1 PUFF INHALE (08:06)
[2023-12-15] MEDS: Sildenafil Citrate 20 MG TABLET PO ×3 (08:33→20:25)
[2023-12-15] MEDS: Bumetanide 1 MG/4 ML VIAL 2 MG IVPUSH ×2 (08:33→16:13)
[2023-12-15] MEDS: predniSONE 2.5 MG TABLET 7.5 MG PO (08:33)
[2023-12-15] MEDS: Insulin Glargine,Hum.rec.anlog 100 UNIT/ML 10 ML VIAL 10 UNIT SUBCUT (08:34)
--- NOTE | 2023-12-15 09:52 | PC.NURSE ---
pt went into SVT 190-205. stat paged. administering amio load per md verbal order. pt asymptomatic, was laying in bed during event.
[2023-12-15] MEDS: Amiodarone/Dextrose 150 MG/100 ML PLAST..BAG 600 MG IV (09:53)
[2023-12-15] MEDS: Amiodarone HCL 900 MG in 0.9 % Sodium Chloride 500 ML 34.53 MG IVCONT (10:05)
--- NOTE | 2023-12-15 10:05 | PM.CCPN ---
Subjective Subjective Date of Service: 12/15/23 Interval History: 78-year-old gentleman with underlying cor pulmonale, advanced COPD, IPF, prior CAD with [place], rheumatoid arthritis admitted on 12/14/2023 with dyspnea. On ER evaluation leukocytosis with elevated BNP. Patient started on empiric diuretic and antibiotic regimen. He required CPAP to maintain normal oximetry and was admitted to intensive care unit. Respiratory status is improving with diuresis. No events overnight. This a.m. with AFib with RVR high 190s. Critical Care Time (minutes): 60 Physical Exam Vital Signs: Vital Signs: Last Vital Signs Temp 97.9 F 12/15/23 08:00 Pulse 92 12/15/23 09:00 Resp 21 H 12/15/23 09:00 BP 119/47 L 12/15/23 09:00 Pulse Ox 92 12/15/23 09:00 O2 Del Method High Flow Nasal C annula 12/15/23 09:00 O2 Flow Rate 30 12/15/23 09:00 FiO2 30 12/15/23 09:00 Oxygen Flow Rate 15 12/14/23 02:15 BMI result Body Mass Index 26.6 Const: General: no acute distress, alert and awake Eyes: Sclerae: sclerae normal EOM: EOMs intact bilaterally Neck: Neck: Yes no lymphadenopathy, Yes trachea midline and Yes supple Resp: Effort & Inspection: normal respiratory effort and no respiratory distress Auscultation: clear to auscultation bilaterally Cardio: Rate: tachycardic Rhythm: abnormal rhythm irregularly irregular Heart sounds: no gallops, no murmurs and no rubs GI: Palpation (GI): Soft to palpation and Other GI palpation findings present ( Nontender) Auscultation: normal bowel sounds Extrem: General: No clubbing, No cyanosis and Yes edema (Trace bilateral) Objective Data Labs 12/15/23 05:39 12/15/23 05:39 Labs: Laboratory Results - last 24 hr 12/14/23 12/14/23 12/14/23 10:54 11:04 16:07 WBC RBC Hgb Hct MCV MCH MCHC RDW Plt Count MPV Immature Gran % (Auto) Neut % (Auto) Lymph % (Auto) [place] % (Auto) Eos % (Auto) Baso % (Auto) Lymph # (Auto) [place] # (Auto) Eos # (Auto) Baso # (Auto) Abs Immat Gran (auto) Absolute Neuts (auto) Absolute Nucleated RBC Nucleated RBC % (auto) PT INR D-Dimer High Sensitivty 338 VBG pH VBG pCO2 VBG pO2 VBG HCO3 VBG O2 Saturation VBG Base Excess Sodium Potassium Chloride Carbon Dioxide Anion Gap BUN Creatinine Estim Creat Clear Calc Estimated GFR POC Glucose 256 H 254 H Random Glucose Calcium Phosphorus Magnesium 12/14/23 12/14/23 12/15/23 17:54 21:16 05:39 WBC 19.2 H RBC 5.16 Hgb 13.8 L Hct 45.0 MCV 87.2 MCH 26.7 L MCHC 30.7 L RDW 18.9 H Plt Count 242 MPV 11.5 Immature Gran % (Auto) 0.6 H Neut % (Auto) 81.9 H Lymph % (Auto) 11.4 L [place] % (Auto) 6.0 Eos % (Auto) 0.0 Baso % (Auto) 0.1 Lymph # (Auto) 2.2 [place] # (Auto) 1.2 Eos # (Auto) 0.0 Baso # (Auto) 0.0 Abs Immat Gran (auto) 0.11 H Absolute Neuts (auto) 15.7 H Absolute Nucleated RBC 0.000 Nucleated RBC % (auto) 0.0 PT 41.2 H D INR 3.4 H D-Dimer High Sensitivty VBG pH VBG pCO2 VBG pO2 VBG HCO3 VBG O2 Saturation VBG Base Excess Sodium 140 140 Potassium 5.3 H D 4.1 D Chloride 97 98 Carbon Dioxide 27 28 Anion Gap 21 H 18 BUN 34 H 41 H Creatinine 2.04 H 1.74 H Estim Creat Clear Calc 31.2 36.6 Estimated GFR 32 38 POC Glucose 145 H Random Glucose 235 H 122 H Calcium 10.8 H D 10.4 H Phosphorus 4.4 Magnesium 2.0 12/15/23 12/15/23 05:40 07:31 WBC RBC Hgb Hct MCV MCH MCHC RDW Plt Count MPV Immature Gran % (Auto) Neut % (Auto) Lymph % (Auto) [place] % (Auto) Eos % (Auto) Baso % (Auto) Lymph # (Auto) [place] # (Auto) Eos # (Auto) Baso # (Auto) Abs Immat Gran (auto) Absolute Neuts (auto) Absolute Nucleated RBC Nucleated RBC % (auto) PT INR D-Dimer High Sensitivty VBG pH 7.46 H VBG pCO2 42 VBG pO2 32 VBG HCO3 30 H VBG O2 Saturation 46.0 VBG Base Excess 6.2 Sodium Potassium Chloride Carbon Dioxide Anion Gap BUN Creatinine Estim Creat Clear Calc Estimated GFR POC Glucose 124 H Random Glucose Calcium Phosphorus Magnesium Microbiology Microbiology Results: Microbiology 12/14/23 03:21 Blood - Venous Blood Culture - Preliminary No growth after 24 hours. 12/14/23 03:16 Blood - Venous Blood Culture - Preliminary No growth after 24 hours. Progress Note: A&P Assessment and plan (1) Atrial fibrillation with RVR: Status: Acute (2) IPF (idiopathic pulmonary fibrosis): Status: Acute (3) CHF (congestive heart failure): Status: Acute (4) COPD (chronic obstructive pulmonary disease): Status: Acute (5) Acute and chronic respiratory failure with hypoxia: Status: Acute (6) (HFpEF) heart failure with preserved ejection fraction: Status: Acute Plan Assessment: 78-year-old gentleman with underlying advanced COPD, ILD, and cor pulmonale admitted with dyspnea and acute hypoxia Plan: Neuro: No acute issues. Cardiac: Cor pulmonale with acute exacerbation, continue with diuresis. Underlying AFib on anticoagulation. Today AFib with RVR requiring amiodarone than drip. Pulmonary: Acute hypoxic respiratory failure secondary to exacerbation of underlying congestive heart failure initially requiring noninvasive positive pressure ventilatory support now titrated down to high-flow nasal cannula. Continue to titrate off as tolerated. Underlying advanced COPD and IPF. Renal: No acute issues. Endo: No acute issues. Underlying diabetes mellitus. GI: No acute issues. ID: No acute issues Heme/Onc: No acute issues. Psych: No acute issues. Miscellaneous: No acute issues. Prophylaxis: Coumadin, PPI Diet: Cardiac Critical care time spent: 60 minutes Quality Stroke Does the patient have a stroke diagnosis?: No VTE Prior VTE?: No VTE Risk Level:: Medical - moderate - high VTE Device Contraindication: Treatment Not Indicated VTE Drug Contraindication: Treatment Not Indicated
[2023-12-15] MEDS: cefTRIAXone sodium 1 GM in 0.9 % Sodium Chloride 50 ML IV (10:18)
[2023-12-15] MEDS: Digoxin 0.5 MG/2 ML AMPUL 0.125 MG IVPUSH (10:19)
[2023-12-15 11:40] LABS: Glucose, Whole Blood 229 mg/dL (60-115)
[2023-12-15] MEDS: Insulin Lispro 100 UNIT/ML 3 ML VIAL SUBCUT ×2 (12:06→16:13)
--- NOTE | 2023-12-15 12:48 | P.CDIM_ITS ---
PROVIDER RESPONSE TEXT: To clarify, the appropriate diagnosis supported by the clinical indicators: Diabetes mellitus with hyperglycemia QUERY TEXT: PHYSICIAN'S DOCUMENTATION REQUEST Date of Query: 12/15/2023 11:49 AM EST Patient Name: Tommy Love Admit Date: 12/14/2023 Dear Mayito Toledo, A review of the medical record indicates additional documentation may be needed. Please review below and update the documentation accordingly. Clinical Indicators: POC glucose 254 H poa Underlying diabetes mellitus Insulin Based on the above, is there a diagnosis that correlates with these lab findings: Diabetes mellitus with hyperglycemia Labs indicate a diagnosis of (please specify) Other (explain) Clinically unable to determine (explain) Thank you, Verónica Oconnor, CCS, CDIS Use of terms such as suspected, likely, concern for, or probable (associated with a specific diagnosi s that is being evaluated, monitored, or treated as if it exists) are acceptable and can be coded in the inpatient se tting, when documented at the time of discharge. Please use your independent medical judgment in providing your response. THIS QUERY IS PART OF THE PERMANENT MEDICAL RECORD
--- NOTE | 2023-12-15 12:48 | P.CDIM_ITS ---
PROVIDER RESPONSE TEXT: To clarify, the appropriate diagnosis supported by the clinical indicators: Pressure Injury Stage 1 coccyx QUERY TEXT: PHYSICIAN'S DOCUMENTATION REQUEST Date of Query: 12/15/2023 11:44 AM EST Patient Name: Tommy Love Admit Date: 12/14/2023 Dear Mayito Toledo, A review of the medical record indicates additional documentation may be needed. Please review below and update the documentation accordingly. Clinical Indicators: Wound care nursing assessment 12/14 - Pressure injury coccyx Stage 1 Foam DSG dressing applied. Based on the above, could you please provide further information regarding the ulcer/wound/injury: Pressure Injury Stage 1 coccyx Other Other (explain) Clinically unable to determine (explain) Thank you, Verónica Oconnor, CCS, CDIS Use of terms such as suspected, likely, concern for, or probable (associated with a specific diagnosi s that is being evaluated, monitored, or treated as if it exists) are acceptable and can be coded in the inpatient se tting, when documented at the time of discharge. Please use your independent medical judgment in providing your response. THIS QUERY IS PART OF THE PERMANENT MEDICAL RECORD
--- NOTE | 2023-12-15 16:12 | MHC.CM.PN ---
Pt continues care in ICU: now on HFNC and push Bumex for diuresis. Plans are for a transfer to the med/tele if pt continues to make progress and improvement. D/C plans are for a return to home w/existing VNA, [employer] and famly support. CM to follow.
[2023-12-15 16:13] LABS: Glucose, Whole Blood 177 mg/dL (60-115)
[2023-12-15 18:38] LABS: Anion Gap 19 (12-20); Blood Urea Nitrogen 41 mg/dL (9-16); Calcium 10.3 mg/dL (8.4-10.2); Carbon Dioxide 28 mmol/L (22-29); Chloride 97 mmol/L (96-108); Creatinine Clr Calc Pharmacy 32.5; Estimated Glomerular Filt Rate 33; Glucose Random 187 mg/dL (60-115); Potassium 5.1 mmol/L (3.3-5.1); Sodium 139 mmol/L (135-145)
[2023-12-15 20:30] LABS: Glucose, Whole Blood 156 mg/dL (60-115)
[2023-12-16] VITALS (29 sets, daily range): BP systolic 113–145; BP diastolic 35–106; PULSE 75–150; RESP 10–28; TEMP 36–36.6; O2SAT 87–95; BMI 26.7
[2023-12-16 05:23] LABS: VBG Base Excess 5.5 mmol/L; VBG HCO3 27 mmol/L (22-26); VBG pCO2 33 mmHg; VBG pH 7.53 (7.32-7.43); VBG pO2 60 mmHg
[2023-12-16 05:28] LABS: Venous Blood Gas Refer to POC result
[2023-12-16 05:39] LABS: MANUAL DIFF FLAG NO
[2023-12-16 05:43] LABS: Basophils Percent Auto 0.1 % (0-2); Eosinophils Absolute Auto 0.1 X10*3/uL (0.0-0.4); Eosinophils Percent Auto 0.7 % (0-4); Hematocrit 45.6 % (42.0-52.0); Hemoglobin 14.4 g/dl (14.0-18.0); Imm Gran Abs Auto 0.07 X10*3/uL (0.00-0.03); Imm Gran Pct Auto 0.5 % (0.0-0.4); Lymphocytes Absolute Auto 2.1 X10*3/uL (1.2-4.9); Lymphocytes Percent Auto 15.1 % (20-40); Mean Corpuscular HGB Conc 31.6 g/dl (31.0-36.0); Mean Corpuscular Hemoglobin 26.7 pg (27.0-33.0); Mean Corpuscular Volume 84.4 fL (80.0-98.0); Mean Platelet Volume 10.3 fL (9.4-12.4); Monocytes Percent Auto 7.1 % (2-11); Neutrophils Absolute Auto 10.5 x10*3/uL (2.0-8.3); Neutrophils Percent Auto 76.5 % (45-73); Platelet Count 214 X10*3/uL (160-400); Red Cell Distribution Width 19.3 % (11.0-16.0); White Blood Count 13.7 X10*3/uL (4.8-10.8)
[2023-12-16] MEDS: Amiodarone HCL 900 MG in 0.9 % Sodium Chloride 500 ML 17.27 MG IVCONT (05:52)
[2023-12-16] MEDS: Omeprazole 40 MG CAPSULE.DR PO (05:55)
[2023-12-16 05:58] LABS: INTERNATIONAL NORM RATIO 3.7 (0.9-1.1); Prothrombin Time 44.8 SEC (11.1-13.3)
[2023-12-16 06:04] LABS: Alanine Aminotransferase 18 U/L (0-40); Albumin Level 3.7 g/dL (3.5-5.0); Alkaline Phosphatase 89 U/L (39-117); Anion Gap 18 (12-20); Aspartate Amino Transferase 17 U/L (5-37); Bilirubin Total 0.6 mg/dL (0.0-1.0); Blood Urea Nitrogen 44 mg/dL (9-16); Calcium 9.9 mg/dL (8.4-10.2); Carbon Dioxide 28 mmol/L (22-29); Chloride 99 mmol/L (96-108); Creatinine Clr Calc Pharmacy 36.2; Estimated Glomerular Filt Rate 38; Glucose Random 121 mg/dL (60-115); Magnesium 1.9 mg/dL (1.6-2.6); Potassium 3.5 mmol/L (3.3-5.1); Sodium 141 mmol/L (135-145); Total Protein 8.1 g/dL (6.5-8.0)
[2023-12-16 07:04] LABS: Glucose, Whole Blood 123 mg/dL (60-115)
[2023-12-16] MEDS: Potassium Chloride ER 20 MEQ TAB.ER.PRT PO (07:36)
[2023-12-16] MEDS: Albuterol/Iprat 2.5/0.5MG 3 ML AMPUL.NEB INHALE ×3 (08:54→19:22)
[2023-12-16] MEDS: Sildenafil Citrate 20 MG TABLET PO ×3 (08:55→20:23)
[2023-12-16] MEDS: Digoxin 0.5 MG/2 ML AMPUL 0.125 MG IVPUSH (08:55)
[2023-12-16] MEDS: Bumetanide 1 MG/4 ML VIAL 2 MG IVPUSH ×2 (08:55→16:12)
[2023-12-16] MEDS: Insulin Glargine,Hum.rec.anlog 100 UNIT/ML 10 ML VIAL 10 UNIT SUBCUT (08:55)
[2023-12-16] MEDS: Fluticasone/Umeclidinium/Vilanterol 100/62.5/25 BLST.W.DEV 1 PUFF INHALE (08:55)
[2023-12-16] MEDS: predniSONE 2.5 MG TABLET 7.5 MG PO (08:55)
[2023-12-16] MEDS: cefTRIAXone sodium 1 GM in 0.9 % Sodium Chloride 50 ML IV (09:19)
[2023-12-16] MEDS: Metoprolol Succinate ER 50 MG TAB.ER.24H PO (09:20)
[2023-12-16] MEDS: Digoxin 0.125 MG TABLET PO (09:21)
--- NOTE | 2023-12-16 09:44 | P.PNCC_ITS ---
Subjective Subjective Date of Service: 12/16/23 Interval History: 78-year-old gentleman with underlying cor pulmonale, advanced COPD, IPF, prior CAD with CO, rheumatoid arthritis admitted on 12/14/2023 with dyspnea. On ER evaluation leukocytosis with elevated BNP. Patient started on empiric diuretic and antibiotic regimen. He required CPAP to maintain normal oximetry and was admitted to intensive care unit. Respiratory status is improving with diuresis. No events overnight. Critical Care Time (minutes): 0 Physical Exam 2 Vital Signs: Vital Signs: Last Vital Signs Temp 97.6 F 12/16/23 07:57 Pulse 97 12/16/23 09:00 Resp 17 12/16/23 09:00 BP 134/54 L 12/16/23 09:00 Pulse Ox 90 L 12/16/23 09:00 O2 Del Method High Flow Nasal C annula 12/16/23 09:00 O2 Flow Rate 25 12/16/23 09:00 FiO2 50 12/16/23 09:00 Oxygen Flow Rate 15 12/14/23 02:15 BMI result Body Mass Index 26.7 Const: General: no acute distress, alert and awake Eyes: Sclerae: sclerae normal EOM: EOMs intact bilaterally Neck: Neck: Yes no lymphadenopathy, Yes trachea midline and Yes supple Resp: Effort & Inspection: normal respiratory effort and no respiratory distress Auscultation: clear to auscultation bilaterally Cardio: Rate: tachycardic Rhythm: abnormal rhythm irregularly irregular Heart sounds: no gallops, no murmurs and no rubs GI: Palpation (GI): Soft to palpation and Other GI palpation findings present ( Nontender) Auscultation: normal bowel sounds Extrem: General: Yes no pedal edema, No clubbing and No cyanosis Objective Data Labs 12/16/23 05:17 12/16/23 05:17 Labs: Laboratory Results - last 24 hr 12/15/23 12/15/23 12/15/23 11:35 16:09 18:08 WBC RBC Hgb Hct MCV MCH MCHC RDW Plt Count MPV Immature Gran % (Auto) Neut % (Auto) Lymph % (Auto) [place] % (Auto) Eos % (Auto) Baso % (Auto) Lymph # (Auto) [place] # (Auto) Eos # (Auto) Baso # (Auto) Abs Immat Gran (auto) Absolute Neuts (auto) Absolute Nucleated RBC Nucleated RBC % (auto) PT INR VBG pH VBG pCO2 VBG pO2 VBG HCO3 VBG O2 Saturation VBG Base Excess Sodium 139 Potassium 5.1 D Chloride 97 Carbon Dioxide 28 Anion Gap 19 BUN 41 H Creatinine 1.96 H Estim Creat Clear Calc 32.5 Estimated GFR 33 POC Glucose 229 H 177 H Random Glucose 187 H Calcium 10.3 H Phosphorus Magnesium Total Bilirubin AST ALT Alkaline Phosphatase Total Protein Albumin 12/15/23 12/16/23 12/16/23 20:26 05:17 05:18 WBC 13.7 H RBC 5.40 Hgb 14.4 Hct 45.6 MCV 84.4 MCH 26.7 L MCHC 31.6 RDW 19.3 H Plt Count 214 MPV 10.3 Immature Gran % (Auto) 0.5 H Neut % (Auto) 76.5 H Lymph % (Auto) 15.1 L [place] % (Auto) 7.1 Eos % (Auto) 0.7 Baso % (Auto) 0.1 Lymph # (Auto) 2.1 [place] # (Auto) 1.0 Eos # (Auto) 0.1 Baso # (Auto) 0.0 Abs Immat Gran (auto) 0.07 H Absolute Neuts (auto) 10.5 H Absolute Nucleated RBC 0.000 Nucleated RBC % (auto) 0.0 PT 44.8 H INR 3.7 H VBG pH 7.53 H VBG pCO2 33 VBG pO2 60 VBG HCO3 27 H VBG O2 Saturation 89.0 VBG Base Excess 5.5 Sodium 141 Potassium 3.5 D Chloride 99 Carbon Dioxide 28 Anion Gap 18 BUN 44 H Creatinine 1.76 H Estim Creat Clear Calc 36.2 Estimated GFR 38 POC Glucose 156 H Random Glucose 121 H Calcium 9.9 Phosphorus 4.0 Magnesium 1.9 Total Bilirubin 0.6 AST 17 ALT 18 Alkaline Phosphatase 89 Total Protein 8.1 H Albumin 3.7 12/16/23 06:59 WBC RBC Hgb Hct MCV MCH MCHC RDW Plt Count MPV Immature Gran % (Auto) Neut % (Auto) Lymph % (Auto) [place] % (Auto) Eos % (Auto) Baso % (Auto) Lymph # (Auto) [place] # (Auto) Eos # (Auto) Baso # (Auto) Abs Immat Gran (auto) Absolute Neuts (auto) Absolute Nucleated RBC Nucleated RBC % (auto) PT INR VBG pH VBG pCO2 VBG pO2 VBG HCO3 VBG O2 Saturation VBG Base Excess Sodium Potassium Chloride Carbon Dioxide Anion Gap BUN Creatinine Estim Creat Clear Calc Estimated GFR POC Glucose 123 H Random Glucose Calcium Phosphorus Magnesium Total Bilirubin AST ALT Alkaline Phosphatase Total Protein Albumin Microbiology Microbiology Results: Microbiology 12/14/23 03:21 Blood - Venous Blood Culture - Preliminary No growth after 48 hours. 12/14/23 03:16 Blood - Venous Blood Culture - Preliminary No growth after 48 hours. Progress Note: A&P Assessment and plan (1) Atrial fibrillation with RVR: Status: Acute (2) IPF (idiopathic pulmonary fibrosis): Status: Acute (3) CHF (congestive heart failure): Status: Acute (4) COPD exacerbation: Status: Acute (5) Acute and chronic respiratory failure with hypoxia: Status: Acute Plan Assessment: 78-year-old gentleman with underlying advanced COPD, ILD, and cor pulmonale admitted with dyspnea and acute hypoxia Plan: Neuro: No acute issues. Cardiac: Cor pulmonale with acute exacerbation, continue with diuresis. Underlying AFib on anticoagulation. Amiodarone drip discontinued. Restarted on p.o. beta blockers and digoxin. Pulmonary: Acute hypoxic respiratory failure secondary to exacerbation of underlying congestive heart failure initially requiring noninvasive positive pressure ventilatory support now titrated down to nasal cannula. Continue to titrate off as tolerated. Underlying advanced COPD and IPF. Renal: No acute issues. Endo: No acute issues. Underlying diabetes mellitus. GI: No acute issues. ID: No acute issues Heme/Onc: No acute issues. Psych: No acute issues. Miscellaneous: No acute issues. Prophylaxis: Coumadin, PPI Diet: Cardiac Quality Stroke Does the patient have a stroke diagnosis?: No VTE Prior VTE?: No VTE Risk Level:: Medical - moderate - high VTE Device Contraindication: Treatment Not Indicated VTE Drug Contraindication: Treatment Not Indicated
--- NOTE | 2023-12-16 09:45 | P.CDIM_ITS ---
PROVIDER RESPONSE TEXT: To clarify, the appropriate diagnosis supported by the clinical indicators: Diagnosis was ruled out QUERY TEXT: PHYSICIAN'S DOCUMENTATION REQUEST Date of Query: 12/16/2023 08:29 AM EST Patient Name: Tommy Love Admit Date: 12/14/2023 Dear Mayito Toledo, A review of the medical record indicates additional documentation may be needed. Please review below and update the documentation accordingly. Clinical Indicators: ED dated 12/14 - Clinical impression - Pneumonia Chest Xray - one small area of consolidation within the right middle lobe which may be acute/subacute related to organizing pneumonia. Please clarify the following: Pneumonia Diagnosis was present on admission and is now resolved Diagnosis was present on admission and is still being monitored, evaluated, or treated Diagnosis was ruled out Diagnosis is still a likely, suspected, probable diagnosis Other (explain) Clinically unable to determine (explain) Thank you, Verónica Oconnor, CCS, CDIS Use of terms such as suspected, likely, concern for, or probable (associated with a specific diagnosi s that is being evaluated, monitored, or treated as if it exists) are acceptable and can be coded in the inpatient se tting, when documented at the time of discharge. Please use your independent medical judgment in providing your response. THIS QUERY IS PART OF THE PERMANENT MEDICAL RECORD
--- NOTE | 2023-12-16 10:29 | PC.NURSE ---
Addendum entered by Stefanie Alba RN 12/16/23 17:09: Amio switched to PO - SAM Toledo turn amio gtt off 1hr after po administration Addendum entered by Stefanie Alba RN 12/16/23 12:39: 1223 - HR 190-100 while having bowel movement on bedside commode. Patient asymptomatic and assisted back to recliner without incident. MD notified - TO Amio loading and continuous gtt ordered. HR down to 90-100's half way through loading dose. Continuous amio started per EMAR. Patient has no complaints at this time, HR 101 Afib, BP 94/50 MAP 70. Original Note: VO Dr Toledo - turn off Amio gtt 1hr after PO Lopressor & extra Digoxin administration. Amio off at 1021. Patient SR 90's to Afib 120's - MD aware. Patient asymptomatic, BP 144/46.
[2023-12-16 11:27] LABS: Glucose, Whole Blood 167 mg/dL (60-115)
[2023-12-16] MEDS: Insulin Lispro 100 UNIT/ML 3 ML VIAL SUBCUT ×2 (11:36→16:12)
[2023-12-16] MEDS: Amiodarone/Dextrose 150 MG/100 ML PLAST..BAG 600 MG IV (12:23)
[2023-12-16] MEDS: Amiodarone HCL 900 MG in 0.9 % Sodium Chloride 500 ML 34.53 MG IVCONT (12:34)
[2023-12-16 16:09] LABS: Glucose, Whole Blood 182 mg/dL (60-115)
[2023-12-16] MEDS: Amiodarone HCL 200 MG TABLET PO (17:08)
[2023-12-16 18:42] LABS: Anion Gap 18 (12-20); Blood Urea Nitrogen 37 mg/dL (9-16); Calcium 10.2 mg/dL (8.4-10.2); Carbon Dioxide 29 mmol/L (22-29); Chloride 97 mmol/L (96-108); Creatinine Clr Calc Pharmacy 36.8; Estimated Glomerular Filt Rate 38; Glucose Random 205 mg/dL (60-115); Potassium 4.1 mmol/L (3.3-5.1); Sodium 140 mmol/L (135-145)
[2023-12-16 20:15] LABS: Glucose, Whole Blood 144 mg/dL (60-115)
[2023-12-17] VITALS (14 sets, daily range): BP systolic 115–159; BP diastolic 58–75; PULSE 67–147; RESP 14–20; TEMP 36.1–36.6; O2SAT 90–97; BMI 23.9
--- NOTE | 2023-12-17 | ECG_ITS ---
Test Reason : Tachycardia Blood Pressure : / mmHG Vent. Rate : 122 BPM Atrial Rate : 122 BPM P-R Int : 000 ms QRS Dur : 130 ms QT Int : 358 ms P-R-T Axes : 000 156 021 degrees QTc Int : 510 ms Sinus tachycardia with a demand pacemaker Premature atrial complexes Premature ventricular complexes Right bundle branch block Possible Lateral infarct , age undetermined Abnormal ECG When compared with ECG of 14-DEC-2023 02:20, No significant changes seen Referred By: Deon Cabral Electronically Signed By:ANA SOLIS
[2023-12-17] MEDS: Omeprazole 40 MG CAPSULE.DR PO (05:20)
[2023-12-17 06:17] LABS: MANUAL DIFF FLAG NO
[2023-12-17 06:18] LABS: Venous Blood Gas Refer to POC result
[2023-12-17 06:21] LABS: Basophils Percent Auto 0.3 % (0-2); Eosinophils Absolute Auto 0.2 X10*3/uL (0.0-0.4); Eosinophils Percent Auto 1.8 % (0-4); Hematocrit 47.7 % (42.0-52.0); Hemoglobin 15.1 g/dl (14.0-18.0); Imm Gran Pct Auto 0.9 % (0.0-0.4); Lymphocytes Absolute Auto 2.2 X10*3/uL (1.2-4.9); Lymphocytes Percent Auto 19.5 % (20-40); Mean Corpuscular HGB Conc 31.7 g/dl (31.0-36.0); Mean Corpuscular Hemoglobin 26.9 pg (27.0-33.0); Monocytes Percent Auto 8.4 % (2-11); Neutrophils Absolute Auto 7.9 x10*3/uL (2.0-8.3); Neutrophils Percent Auto 69.1 % (45-73); Platelet Count 250 X10*3/uL (160-400); Red Blood Count 5.61 X10*6/uL (4.60-5.80); Red Cell Distribution Width 19.3 % (11.0-16.0); White Blood Count 11.4 X10*3/uL (4.8-10.8)
[2023-12-17 06:22] LABS: VBG Base Excess 7.3 mmol/L; VBG HCO3 30 mmol/L (22-26); VBG pCO2 36 mmHg; VBG pH 7.52 (7.32-7.43); VBG pO2 50 mmHg
[2023-12-17 06:23] LABS: INTERNATIONAL NORM RATIO 2.2 (0.9-1.1); Prothrombin Time 26.5 SEC (11.1-13.3)
[2023-12-17 06:38] LABS: Albumin Level 3.9 g/dL (3.5-5.0); Anion Gap 19 (12-20); Blood Urea Nitrogen 39 mg/dL (9-16); Calcium 10.5 mg/dL (8.4-10.2); Carbon Dioxide 27 mmol/L (22-29); Chloride 99 mmol/L (96-108); Creatinine Clr Calc Pharmacy 40.3; Estimated Glomerular Filt Rate 43; Glucose Random 130 mg/dL (60-115); Magnesium 1.7 mg/dL (1.6-2.6); Phosphorus 3.3 mg/dL (2.7-4.5); Potassium 3.5 mmol/L (3.3-5.1); Sodium 141 mmol/L (135-145)
[2023-12-17 07:28] LABS: Glucose, Whole Blood 146 mg/dL (60-115)
[2023-12-17] MEDS: Albuterol/Iprat 2.5/0.5MG 3 ML AMPUL.NEB INHALE ×3 (07:35→19:16)
[2023-12-17] MEDS: Insulin Glargine,Hum.rec.anlog 100 UNIT/ML 10 ML VIAL 10 UNIT SUBCUT (08:07)
[2023-12-17] MEDS: Bumetanide 1 MG/4 ML VIAL 2 MG IVPUSH (08:07)
[2023-12-17] MEDS: Sildenafil Citrate 20 MG TABLET PO ×3 (08:08→21:09)
[2023-12-17] MEDS: Metoprolol Succinate ER 50 MG TAB.ER.24H PO (08:09)
[2023-12-17] MEDS: predniSONE 2.5 MG TABLET 7.5 MG PO (08:09)
[2023-12-17] MEDS: Amiodarone HCL 200 MG TABLET PO (08:09)
[2023-12-17] MEDS: Digoxin 0.125 MG TABLET PO (08:09)
[2023-12-17] MEDS: Folic Acid 1 MG TABLET PO (08:47)
[2023-12-17] MEDS: Aspirin Enteric Coated 81 MG TABLET.DR PO (08:47)
[2023-12-17] MEDS: Sacubitril/Valsartan 49/51 1 TAB TABLET PO ×2 (08:47→21:10)
[2023-12-17] MEDS: Potassium Chloride ER 20 MEQ TAB.ER.PRT 40 MEQ PO (08:47)
[2023-12-17] MEDS: Empagliflozin 25 MG TABLET PO (08:47)
[2023-12-17] MEDS: Magnesium Sulfate/H2O 2 GM/50 ML PIGGYBACK IV (08:56)
--- NOTE | 2023-12-17 09:13 | P.PNIM_ITS ---
Subjective Subjective Date of Service: 12/18/23 Interval History: Has been going into in and out of AFIB with RVR up to 190 started on iv cardizem, no chest pain sob or dizzines Physical Exam 2 Vital Signs: Vital Signs: Last Vital Signs Temp 97.7 F 12/17/23 07:12 Pulse 90 12/17/23 07:37 Resp 18 12/17/23 07:37 BP 139/63 12/17/23 07:12 Pulse Ox 93 12/17/23 07:12 O2 Del Method Nasal Cannula 12/17/23 07:12 O2 Flow Rate 4 12/17/23 07:12 FiO2 50 12/16/23 09:00 Oxygen Flow Rate 15 12/14/23 02:15 BMI result Body Mass Index 23.9 General: AO X 3, no acute distress Resp: CTA bilateral CVS: S1,S2, iregular iregular GI: +BS, NT, no distention Skin: No rash Neuro: motor grossly intact Psych: appropriate affect Objective Data Active Medications Albuterol Sulfate (Albuterol Sulfate (0.083%) 2.5 Mg/3 Ml Vial.Neb) 2.5 mg INHALE Q4H PRN PRN Reason: wheezing Albuterol/Ipratropium (Albuterol/Iprat 2.5/0.5mg 3 Ml Ampul.Neb) 3 ml INHALE RQ6H WHILE AWAKE [facility] Last Admin: 12/17/23 07:35 Dose: 3 ml Documented By: PABLITO Amiodarone HCl (Amiodarone Hcl 200 Mg Tablet) 200 mg PO DAILY [facility] Last Admin: 12/17/23 08:09 Dose: 200 mg Documented By: KYLER Aspirin (Aspirin Enteric Coated 81 Mg Tablet.) 81 mg PO DAILY [facility] Last Admin: 12/17/23 08:47 Dose: 81 mg Documented By: AURELIANO Atorvastatin Calcium (Atorvastatin Calcium 40 Mg Tablet) 40 mg PO BEDTIME [facility] Bumetanide (Bumetanide 1 Mg/4 Ml Vial) 2 mg IVPUSH BID@0900,1700 [facility]; Protocol Last Admin: 12/17/23 08:07 Dose: 2 mg Documented By: KYLER Digoxin (Digoxin 0.125 Mg Tablet) 0.125 mg PO DAILY [facility] Last Admin: 12/17/23 08:09 Dose: 0.125 mg Documented By: KYLER Empagliflozin (Empagliflozin 25 Mg Tablet) 25 mg PO DAILY [facility] Last Admin: 12/17/23 08:47 Dose: 25 mg Documented By: AURELIANO Fluticasone/Umeclidinium/Vilanterol (Fluticasone/Umeclidinium/Vilanterol 100/62.5/25 Blst.W.Dev) 1 puff INHALE RDAILY [facility] Last Admin: 12/16/23 08:55 Dose: 1 puff Documented By: VY Folic Acid (Folic Acid 1 Mg Tablet) 1 mg PO DAILY [facility] Last Admin: 12/17/23 08:47 Dose: 1 mg Documented By: AURELIANO Ceftriaxone Sodium 1 gm/ (Sodium Chloride) 50 mls @ 100 mls/hr IV Q24H [facility] Last Infusion: 12/16/23 09:54 Dose: Infused Documented By: DONNA Magnesium Sulfate (Magnesium Sulfate/H2o) 2 gm in 50 mls @ 25 mls/hr IV ONCE ONE Stop: 12/17/23 10:36 Last Admin: 12/17/23 08:56 Dose: 25 mls/hr Documented By: AURELIANO Insulin Glargine (Insulin Glargine,Hum.Rec.Anlog 100 Unit/Ml 10 Ml Vial) 10 unit SUBCUT DAILY [facility] Last Admin: 12/17/23 08:07 Dose: 10 unit Documented By: KYLER Insulin Human Lispro (Insulin Lispro 100 Unit/Ml 3 Ml Vial) 0 unit SUBCUT QIDACHS [facility]; Protocol Last Admin: 12/17/23 07:29 Dose: Not Given Documented By: KYLER Non-Admin Reason: No Insulin Coverage Metoprolol Succinate (Metoprolol Succinate Er 50 Mg Tab.Er.24h) 50 mg PO DAILY [facility]; Protocol Last Admin: 12/17/23 08:09 Dose: 50 mg Documented By: KYLER Metoprolol Tartrate (Metoprolol Tartrate 5 Mg/5 Ml Vial) 5 mg IVPUSH ONCE ONE Stop: 12/17/23 09:10 Nitroglycerin (Nitroglycerin 0.4 Mg Tab.Subl) 0.4 mg SUBLINGUAL Q5M PRN PRN Reason: Chest Pain Omeprazole (Omeprazole 40 Mg Capsule.Dr) 40 mg PO DAILY@0630 [facility] Last Admin: 12/17/23 05:20 Dose: 40 mg Documented By: ANDRES Prednisone (Prednisone 2.5 Mg Tablet) 7.5 mg PO DAILY [facility] Last Admin: 12/17/23 08:09 Dose: 7.5 mg Documented By: KYLER Sacubitril/Valsartan (Sacubitril/Valsartan 49/51 1 Tab Tablet) 1 tab PO BID [facility]; Protocol Last Admin: 12/17/23 08:47 Dose: 1 tab Documented By: AURELIANO Sildenafil Citrate (Sildenafil Citrate 20 Mg Tablet) 20 mg PO TID [facility] Last Admin: 12/17/23 08:08 Dose: 20 mg Documented By: KYLER Timolol Maleate (Timolol Maleate 0.5 % Oph [place] 5 Ml Drbtl) 1 drop EYE-BOTH DAILY [facility] Tramadol HCl (Tramadol Hcl 50 Mg Tablet) 50 mg PO BID PRN PRN Reason: Pain, Moderate Warfarin Sodium (Warfarin Sodium 5 Mg Tablet) 5 mg PO DAILY@1800 [facility] Labs 12/17/23 06:12 12/18/23 05:27 Labs: Laboratory Results - last 24 hr 12/16/23 12/16/23 12/16/23 11:24 16:05 18:03 MCV MCH MCHC RDW Plt Count MPV Immature Gran % (Auto) Neut % (Auto) Lymph % (Auto) [place] % (Auto) Eos % (Auto) Baso % (Auto) Lymph # (Auto) [place] # (Auto) Eos # (Auto) Baso # (Auto) Abs Immat Gran (auto) Absolute Neuts (auto) Absolute Nucleated RBC Nucleated RBC % (auto) PT INR VBG pH VBG pCO2 VBG pO2 VBG HCO3 VBG O2 Saturation VBG Base Excess Anion Gap 18 Estim Creat Clear Calc 36.8 Estimated GFR 38 POC Glucose 167 H 182 H Random Glucose 205 H Calcium 10.2 Phosphorus Magnesium Albumin 12/16/23 12/17/23 12/17/23 20:12 06:12 06:14 MCV 85.0 MCH 26.9 L MCHC 31.7 RDW 19.3 H Plt Count 250 MPV 11.0 Immature Gran % (Auto) 0.9 H Neut % (Auto) 69.1 Lymph % (Auto) 19.5 L [place] % (Auto) 8.4 Eos % (Auto) 1.8 Baso % (Auto) 0.3 Lymph # (Auto) 2.2 [place] # (Auto) 1.0 Eos # (Auto) 0.2 Baso # (Auto) 0.0 Abs Immat Gran (auto) 0.10 H Absolute Neuts (auto) 7.9 Absolute Nucleated RBC 0.000 Nucleated RBC % (auto) 0.0 PT 26.5 H D INR 2.2 H VBG pH 7.52 H VBG pCO2 36 VBG pO2 50 VBG HCO3 30 H VBG O2 Saturation 81.0 VBG Base Excess 7.3 Anion Gap 19 Estim Creat Clear Calc 40.3 Estimated GFR 43 POC Glucose 144 H Random Glucose 130 H Calcium 10.5 H Phosphorus 3.3 Magnesium 1.7 Albumin 3.9 12/17/23 07:10 MCV MCH MCHC RDW Plt Count MPV Immature Gran % (Auto) Neut % (Auto) Lymph % (Auto) [place] % (Auto) Eos % (Auto) Baso % (Auto) Lymph # (Auto) [place] # (Auto) Eos # (Auto) Baso # (Auto) Abs Immat Gran (auto) Absolute Neuts (auto) Absolute Nucleated RBC Nucleated RBC % (auto) PT INR VBG pH VBG pCO2 VBG pO2 VBG HCO3 VBG O2 Saturation VBG Base Excess Anion Gap Estim Creat Clear Calc Estimated GFR POC Glucose 146 H Random Glucose Calcium Phosphorus Magnesium Albumin Microbiology Microbiology Results: Microbiology 12/14/23 03:21 Blood Culture - Preliminary Blood - Venous No growth after 48 hours. 12/14/23 03:16 Blood Culture - Preliminary Blood - Venous No growth after 48 hours. Assessment and Plan (1) Acute cor pulmonale: Status: Acute (2) Atrial fibrillation with RVR: Status: Acute (3) IPF (idiopathic pulmonary fibrosis): Status: Acute Plan 78-year-old male with past medical history of HFpEF s/p CardioMEMS, Pulmonary HTN/cor Pulmonale, IPF, ashmta/COPD on 4 liters of O2 at baseline, PAF, RA on chronic steroid, HTN he was admitted throught the ICU for acute hypoxic resp failure that required rescue BiPAP and while in the ICU noted possible SVT /AFIB with RVR and started on amio drip, transfered ovenight and this morning, noted again to be having episodes of tachycardic up to 190s,..rythm mre consistent AFIB with RVR and was startedon IV cardizem drip PAF with RVR -Toprolol XL 50 -continue dig -IV Cardiazem and transition to oral when rate controlled -continue coumdina INR 2.2 -stop Amio with cardizem Chronic HFpEF with exacerbation IV Bumex 2 bid, monitor renal function and K, Oral Bumex by tomorrow COPD with chronic resp failure on 4 liters at home, continue inhalers RA--continue Prednisone HTN--continue Metoprolol, entresto and now cardizem Diabetes--continue Lantus, SSI, diabetic diet HLD--Lipior CKD, Stage 3B Moderate CKD (GFR = 30-44 mL/min)--Stable, follow while on iv diuretics DVT prophylaxis--Coumadin Requires ongoing inpatient hospital stay for further management of respiratory failure/CHF - on IV diuretics and IV med for AFIB with RVR and med adjustment Quality Stroke Does the patient have a stroke diagnosis?: No VTE Prior VTE?: No VTE Risk Level:: Medical - moderate - high VTE Device Contraindication: Treatment Not Indicated VTE Drug Contraindication: Treatment Not Indicated
[2023-12-17] MEDS: Metoprolol Tartrate 5 MG/5 ML VIAL IVPUSH (09:16)
[2023-12-17] MEDS: dilTIAZem HCL 125 MG in 0.9 % Sodium Chloride 100 ML 10 MG IVCONT (09:28)
[2023-12-17] MEDS: timoloL maleate 0.5 % Oph Sol 5 ML DRBTL 1 DROP EYE-BOTH (10:59)
[2023-12-17] MEDS: cefTRIAXone sodium 1 GM in 0.9 % Sodium Chloride 50 ML IV (11:08)
[2023-12-17 11:24] LABS: Glucose, Whole Blood 194 mg/dL (60-115)
[2023-12-17] MEDS: Insulin Lispro 100 UNIT/ML 3 ML VIAL SUBCUT ×2 (11:51→17:02)
--- NOTE | 2023-12-17 12:26 | PM.CNCAR ---
History of Present Illness History of Present Illness Date of Service: 12/17/23 Chief complaint: acute hypoxic respiratory failure Narrative: This is a cardiology consultation regarding tachycardia. Telemetry had shown rapid tachycardia from either SVT or atrial fibrillation versus flutter and hence we are consulted. Patient states he had some palpitations but overall he states he is feeling fine. Denies any chest pain or shortness of breath or in fact any other cardiac complaints. It seems that he is significant COPD as well as interstitial lung disease. He has enlarged right heart. He was in the ICU initially where he was treated for carpal canal/acute exacerbation and had diuresis. Then moved to the floor when he had rapid heart rates when we were consulted. Otherwise, he seems fairly comfortable. Review of Systems Review of Systems: Yes all other systems are reviewed and are negative Constitutional: Constitutional: Reports as per HPI and Reports no additional constitutional complaints Eyes: Eyes: Reports as per HPI and Denies no additional eye complaints ENT: Denies system reviewed and no additional complaints, except as documented and Reports as per HPI Cardiovascular: Cardiovascular: Reports as per HPI, Reports no additional cardiovascular complaints, Denies acrocyanosis, Denies cool extremities, Denies chest pain, Denies leg edema, Denies lightheadedness, Denies palpitations and Denies dyspnea Respiratory: Respiratory: Reports as per HPI, Denies no additional respiratory complaints and Denies dyspnea Gastrointestinal: Gastrointestinal: Reports as per HPI and Denies no additional gastrointestinal complaints Genitourinary: Genitourinary: Reports no additional male genitourinary complaints and Reports as per HPI Musculoskeletal: Musculoskeletal: Reports no additional musculoskeletal complaints and Reports as per HPI Integumentary/Breasts: Skin/Breast: Reports system reviewed and no additional complaints, except as docu Neurologic: Reports system reviewed and no additional complaints, except as documented and Reports as per HPI Psychiatric: Psychiatric: Reports no additional psychiatric complaints and Reports as per HPI Endocrine: Endocrine: Reports no additional endocrine complaints, Reports as per HPI and Denies palpitations Hematologic/Lymphatic: Hematologic/Lymphatic: Reports no additional hematologic/lymphatic complaints and Reports as per HPI Allergic/Immunologic: Allergic/Immunologic: Reports no additional allergic/immunologic complaints and Reports as per HPI [facility] Past Medical History Medical History Acute exacerbation of CHF (congestive heart failure) SVT (supraventricular tachycardia) CHF exacerbation Chronic anticoagulation Atrial fibrillation Chronic hypoxemic respiratory failure Hypertension Rheumatoid arthritis Lymphadenopathy ILD (interstitial lung disease) COPD exacerbation Family History Pertinent family history: No pertinent family history Surgical History Surgical History Hx of colonoscopy Social History Social History Household Members: Significant Other Housing: Apartment Do you presently have visiting nurse or other home services: Yes Alcohol intake: never Patient Tobacco Use Status: Former Tobacco user Quit Date: 23 years ago Tobacco use type: Cigarette Years Smoked: 40 Smoked in Last 30 Days: No e-Cigarette/Vaping Use: Former Use Use of substances other than those prescribed or required for medical reasons: No Currently Displaying Signs/Symptoms of Drug Intoxication Withdrawal: No Have you been hit, kicked, punched, or otherwise hurt by someone within the past year? If so, by whom?: No Do you feel safe in your current relationship?: Yes Is there a partner from a previous relationship who is making you feel unsafe now?: No Are you made to feel afraid or neglected: No Advance Directives: Yes Advance Directives on File: Yes Advance Directives Date on File: 06/27/23 Do you have thoughts of harming others: None Do you have a plan to hurt others: No Plan Recently lost weight without trying: Yes How much weight loss: Unsure Eating poorly because of decreased appetite: No Nutrition screen score: 4 Nutrition Risks: No Nutritional Risk service: No Current occupational status: retired Meds Allergies Allergy/AdvReac Type Severity Reaction Status Date / Time No Known Allergies Allergy Unknown NOT Verified 11/30/23 02:44 APPLICABLE Active Medications: Current Medications Albuterol Sulfate (Albuterol Sulfate (0.083%) 2.5 Mg/3 Ml Vial.Neb) 2.5 mg INHALE Q4H PRN PRN Reason: wheezing Albuterol/Ipratropium (Albuterol/Iprat 2.5/0.5mg 3 Ml Ampul.Neb) 3 ml INHALE RQ6H WHILE AWAKE JEN Last Admin: 12/17/23 07:35 Dose: 3 ml Amiodarone HCl (Amiodarone Hcl 200 Mg Tablet) 200 mg PO DAILY JEN Last Admin: 12/17/23 08:09 Dose: 200 mg Aspirin (Aspirin Enteric Coated 81 Mg Tablet.Dr) 81 mg PO DAILY [facility] Last Admin: 12/17/23 08:47 Dose: 81 mg Atorvastatin Calcium (Atorvastatin Calcium 40 Mg Tablet) 40 mg PO BEDTIME [facility] Bumetanide (Bumetanide 1 Mg/4 Ml Vial) 2 mg IVPUSH BID@0900,1700 [facility]; Protocol Last Admin: 12/17/23 08:07 Dose: 2 mg Digoxin (Digoxin 0.125 Mg Tablet) 0.125 mg PO DAILY [facility] Last Admin: 12/17/23 08:09 Dose: 0.125 mg Diltiazem HCl (Diltiazem Hcl 60 Mg Tablet) 60 mg PO Q6H [facility]; Protocol Empagliflozin (Empagliflozin 25 Mg Tablet) 25 mg PO DAILY [facility] Last Admin: 12/17/23 08:47 Dose: 25 mg Fluticasone/Umeclidinium/Vilanterol (Fluticasone/Umeclidinium/Vilanterol 100/62.5/25 Blst.W.Dev) 1 puff INHALE RDAILY [facility] Last Admin: 12/17/23 11:02 Dose: Not Given Folic Acid (Folic Acid 1 Mg Tablet) 1 mg PO DAILY [facility] Last Admin: 12/17/23 08:47 Dose: 1 mg Ceftriaxone Sodium 1 gm/ (Sodium Chloride) 50 mls @ 100 mls/hr IV Q24H [facility] Last Infusion: 12/17/23 11:39 Dose: Infused Diltiazem HCl 125 mg/ Sodium (Chloride) 125 mls @ 0 mls/hr IVCONT .Q0M [facility]; Protocol Last Titration: 12/17/23 11:40 Dose: 10 mg/hr, 10 mls/hr Insulin Glargine (Insulin Glargine,Hum.Rec.Anlog 100 Unit/Ml 10 Ml Vial) 10 unit SUBCUT DAILY [facility] Last Admin: 12/17/23 08:07 Dose: 10 unit Insulin Human Lispro (Insulin Lispro 100 Unit/Ml 3 Ml Vial) 0 unit SUBCUT QIDACHS [facility]; Protocol Last Admin: 12/17/23 11:51 Dose: 2 unit Metoprolol Succinate (Metoprolol Succinate Er 50 Mg Tab.Er.24h) 50 mg PO DAILY [facility]; Protocol Last Admin: 12/17/23 08:09 Dose: 50 mg Nitroglycerin (Nitroglycerin 0.4 Mg Tab.Subl) 0.4 mg SUBLINGUAL Q5M PRN PRN Reason: Chest Pain Omeprazole (Omeprazole 40 Mg Capsule.Dr) 40 mg PO DAILY@0630 [facility] Last Admin: 12/17/23 05:20 Dose: 40 mg Prednisone (Prednisone 2.5 Mg Tablet) 7.5 mg PO DAILY [facility] Last Admin: 12/17/23 08:09 Dose: 7.5 mg Sacubitril/Valsartan (Sacubitril/Valsartan 49/51 1 Tab Tablet) 1 tab PO BID [facility]; Protocol Last Admin: 12/17/23 08:47 Dose: 1 tab Sildenafil Citrate (Sildenafil Citrate 20 Mg Tablet) 20 mg PO TID [facility] Last Admin: 12/17/23 08:08 Dose: 20 mg Timolol Maleate (Timolol Maleate 0.5 % Oph [place] 5 Ml Drbtl) 1 drop EYE-BOTH DAILY [facility] Last Admin: 12/17/23 10:59 Dose: 1 drop Tramadol HCl (Tramadol Hcl 50 Mg Tablet) 50 mg PO BID PRN PRN Reason: Pain, Moderate Warfarin Sodium (Warfarin Sodium 5 Mg Tablet) 5 mg PO DAILY@1800 [facility] Home Medications Medication Instructions Recorded Confirmed Last Taken Type adalimumab 40 mg/0.4 mL 40 mg subcut Q2W 11/20/21 12/14/23 11/16/23 History subcutaneous pen kit (Humira(CF) Pen) folic acid 400 mcg tablet 400 mcg PO DAILY 11/20/21 12/14/23 Unknown History rosuvastatin 10 mg tablet 1 tab PO BEDTIME 11/20/21 12/14/23 Unknown History timolol maleate 0.5 % eye drops 1 drp ophthalmic (eye) DAILY 11/20/21 12/14/23 Unknown History tramadol 50 mg tablet 1 tab PO BID PRN Pain, Moderate 11/20/21 12/14/23 06/23/23 History aspirin 81 mg tablet,delayed 81 mg PO DAILY 04/18/23 12/14/23 Unknown History release fluticasone furoate 200 1 puff inhalation DAILY 04/18/23 12/14/23 Unknown History mcg-vilanterol 25 mcg/dose inhalation powder (Breo Ellipta) nitroglycerin 0.4 mg sublingual 0.4 mg sublingual NEEDED PRN 04/18/23 12/14/23 Unknown History tablet Chest Pain omeprazole 40 mg capsule,delayed 40 mg PO DAILY@0630 06/23/23 12/14/23 Unknown History release empagliflozin 25 mg tablet 25 mg PO DAILY 11/30/23 12/14/23 Unknown History (Jardiance) prednisone 5 mg tablet 7.5 mg PO DAILY 11/30/23 12/14/23 Unknown History warfarin 2.5 mg tablet (Jantoven) 5 mg PO DAILY@1800 11/30/23 12/14/23 Unknown History albuterol sulfate 2.5 mg/3 mL 2.5 mg inhalation Q4H PRN wheezing 12/14/23 12/14/23 Unknown History (0.083 %) solution for nebulization albuterol sulfate 90 mcg/actuation 2 puff inhalation Q4H PRN wheezing 12/14/23 12/14/23 Unknown History aerosol inhaler (Ventolin HFA) Physical Exam Vital Signs: Vital Signs: Last Vital Signs Temp 97.7 F 12/17/23 11:12 Pulse 83 12/17/23 11:12 Resp 18 12/17/23 11:12 BP 158/73 H 12/17/23 11:12 Pulse Ox 93 12/17/23 11:12 O2 Del Method Nasal Cannula 12/17/23 11:12 O2 Flow Rate 6 12/17/23 11:12 FiO2 50 12/16/23 09:00 Oxygen Flow Rate 15 12/14/23 02:15 BMI result Body Mass Index 23.9 Const: General: comfortable and no acute distress Orientation/consciousness: patient oriented x3 HEENT: Other: Unremarkable Head: Yes normal to inspection Neck: Neck: Yes normal visual inspection Chest: Chest palpation & inspection: normal inspection of the chest Resp: Auscultation: clear to auscultation bilaterally Cardio: Palpation: normal PMI Heart sounds: S1 normal heart sound present, S2 normal heart sound present, no gallops, no murmurs and no rubs GI: Palpation (GI): Soft to palpation Back/Spine/Pelvis: Other: unremarkable Skin: General skin exam: no rashes or lesions noted Neuro: General: patient oriented x3 Extrem: General: Yes normal to inspection Psych: Mental Status: mental status grossly normal Objective Labs and Meds 12/17/23 06:12 12/17/23 06:12 Lab results: Laboratory Results - last 24 hr 12/16/23 12/16/23 12/16/23 16:05 18:03 20:12 WBC RBC Hgb Hct MCV MCH MCHC RDW Plt Count MPV Immature Gran % (Auto) Neut % (Auto) Lymph % (Auto) [place] % (Auto) Eos % (Auto) Baso % (Auto) Lymph # (Auto) [place] # (Auto) Eos # (Auto) Baso # (Auto) Abs Immat Gran (auto) Absolute Neuts (auto) Absolute Nucleated RBC Nucleated RBC % (auto) PT INR VBG pH VBG pCO2 VBG pO2 VBG HCO3 VBG O2 Saturation VBG Base Excess Sodium 140 Potassium 4.1 Chloride 97 Carbon Dioxide 29 Anion Gap 18 BUN 37 H Creatinine 1.73 H Estim Creat Clear Calc 36.8 Estimated GFR 38 POC Glucose 182 H 144 H Random Glucose 205 H Calcium 10.2 Phosphorus Magnesium Albumin 12/17/23 12/17/23 12/17/23 06:12 06:14 07:10 WBC 11.4 H RBC 5.61 Hgb 15.1 Hct 47.7 MCV 85.0 MCH 26.9 L MCHC 31.7 RDW 19.3 H Plt Count 250 MPV 11.0 Immature Gran % (Auto) 0.9 H Neut % (Auto) 69.1 Lymph % (Auto) 19.5 L [place] % (Auto) 8.4 Eos % (Auto) 1.8 Baso % (Auto) 0.3 Lymph # (Auto) 2.2 [place] # (Auto) 1.0 Eos # (Auto) 0.2 Baso # (Auto) 0.0 Abs Immat Gran (auto) 0.10 H Absolute Neuts (auto) 7.9 Absolute Nucleated RBC 0.000 Nucleated RBC % (auto) 0.0 PT 26.5 H D INR 2.2 H VBG pH 7.52 H VBG pCO2 36 VBG pO2 50 VBG HCO3 30 H VBG O2 Saturation 81.0 VBG Base Excess 7.3 Sodium 141 Potassium 3.5 Chloride 99 Carbon Dioxide 27 Anion Gap 19 BUN 39 H Creatinine 1.58 H Estim Creat Clear Calc 40.3 Estimated GFR 43 POC Glucose 146 H Random Glucose 130 H Calcium 10.5 H Phosphorus 3.3 Magnesium 1.7 Albumin 3.9 12/17/23 11:15 WBC RBC Hgb Hct MCV MCH MCHC RDW Plt Count MPV Immature Gran % (Auto) Neut % (Auto) Lymph % (Auto) [place] % (Auto) Eos % (Auto) Baso % (Auto) Lymph # (Auto) [place] # (Auto) Eos # (Auto) Baso # (Auto) Abs Immat Gran (auto) Absolute Neuts (auto) Absolute Nucleated RBC Nucleated RBC % (auto) PT INR VBG pH VBG pCO2 VBG pO2 VBG HCO3 VBG O2 Saturation VBG Base Excess Sodium Potassium Chloride Carbon Dioxide Anion Gap BUN Creatinine Estim Creat Clear Calc Estimated GFR POC Glucose 194 H Random Glucose Calcium Phosphorus Magnesium Albumin ECG Interpretation: During the times when the heart rate is very rapid in the 170s, difficult to say what the underlying rhythm is. Could be either atrial fibrillation or could be flutter versus SVT. When it slows down, some areas suggestive of flutter. Overall, difficult to say. Assessment and Plan (1) Atrial fibrillation with RVR: Status: Acute (2) IPF (idiopathic pulmonary fibrosis): Status: Acute (3) Acute cor pulmonale: Status: Acute Plan Recent echocardiogram with LVEF of 60-65%. Severely increased right ventricular size with severely decreased right ventricular systolic function. Severe pulmonary hypertension. Atrial arrhythmias are likely a consequence of right heart dysfunction which is in turn related to severe intrinsic lung disease. Home meds listed as metoprolol 25 mg b.i.d., digoxin alternate days. Seems he got amiodarone in the ICU but may not be a good long-term choice considering his advanced lung disease. He was briefly put on Cardizem drip and then converted back to sinus rhythm. We can do diltiazem 60 mg q.6 hourly. Also continue beta-blockers. Digoxin may not be much of use in this setting. He is already on anticoagulation with warfarin. Diuretics. Discussed with significant other. Goals of care will need to be addressed. Discussed with Dr. Cabral. Procedures Date of Service Date of Service: 12/17/23
[2023-12-17] MEDS: dilTIAZem HCL 60 MG TABLET PO ×3 (12:54→21:09)
[2023-12-17 16:30] LABS: Glucose, Whole Blood 162 mg/dL (60-115)
[2023-12-17] MEDS: Warfarin Sodium 5 MG TABLET PO (17:35)
[2023-12-17 21:01] LABS: Glucose, Whole Blood 138 mg/dL (60-115)
[2023-12-17] MEDS: Atorvastatin Calcium 40 MG TABLET PO (21:09)
[2023-12-18 03:32] VITALS: BP 118/57; PULSE 69; RESP 18; TEMP 36.3; O2SAT 90
[2023-12-18] MEDS: Omeprazole 40 MG CAPSULE.DR PO (05:49)
[2023-12-18 05:53] VITALS: BMI 24.8
[2023-12-18 06:16] LABS: Anion Gap 17 (12-20); Blood Urea Nitrogen 48 mg/dL (9-16); Calcium 10.6 mg/dL (8.4-10.2); Carbon Dioxide 29 mmol/L (22-29); Chloride 98 mmol/L (96-108); Creatinine Clr Calc Pharmacy 34.4; Estimated Glomerular Filt Rate 35; Glucose Random 100 mg/dL (60-115); INTERNATIONAL NORM RATIO 1.5 (0.9-1.1); Potassium 4.3 mmol/L (3.3-5.1); Prothrombin Time 18.4 SEC (11.1-13.3); Sodium 140 mmol/L (135-145)
[2023-12-18 07:30] VITALS: BP 139/65; PULSE 70; RESP 18; TEMP 36.1; O2SAT 92
[2023-12-18] MEDS: Albuterol/Iprat 2.5/0.5MG 3 ML AMPUL.NEB INHALE (07:31)
[2023-12-18] MEDS: Fluticasone/Umeclidinium/Vilanterol 100/62.5/25 BLST.W.DEV 1 PUFF INHALE (07:31)
[2023-12-18 07:32] LABS: Glucose, Whole Blood 124 mg/dL (60-115)
[2023-12-18 07:33] VITALS: PULSE 82; RESP 16; O2SAT 89
[2023-12-18] MEDS: timoloL maleate 0.5 % Oph Sol 5 ML DRBTL 1 DROP EYE-BOTH (08:28)
[2023-12-18] MEDS: Insulin Glargine,Hum.rec.anlog 100 UNIT/ML 10 ML VIAL 10 UNIT SUBCUT (08:29)
[2023-12-18] MEDS: Aspirin Enteric Coated 81 MG TABLET.DR PO (08:30)
[2023-12-18] MEDS: Sildenafil Citrate 20 MG TABLET PO (08:30)
[2023-12-18] MEDS: dilTIAZem HCL CD 240 MG CAP.ER.DEG PO (08:30)
[2023-12-18] MEDS: Empagliflozin 25 MG TABLET PO (08:31)
[2023-12-18] MEDS: Metoprolol Succinate ER 50 MG TAB.ER.24H PO (08:31)
[2023-12-18] MEDS: Folic Acid 1 MG TABLET PO (08:31)
[2023-12-18] MEDS: Digoxin 0.125 MG TABLET PO (08:31)
[2023-12-18] MEDS: Bumetanide 1 MG TABLET 2 MG PO (08:31)
[2023-12-18] MEDS: Sacubitril/Valsartan 49/51 1 TAB TABLET PO (08:31)
[2023-12-18] MEDS: predniSONE 2.5 MG TABLET 7.5 MG PO (08:32)
[2023-12-18] MEDS: polyethylene glycoL 3350 17 GM POWD.PACK PO (08:35)
[2023-12-18] MEDS: cefTRIAXone sodium 1 GM in 0.9 % Sodium Chloride 50 ML IV (10:12)
--- NOTE | 2023-12-18 10:50 | PM.PNCARD ---
Subjective Subjective Date of Service: 12/18/23 Interval history: He states that he is feeling fine. He is got absolutely no cardiac symptoms. Review of Systems Review of Systems Yes all other systems are reviewed and are negative Constitutional: Reports as per HPI and Reports no additional constitutional complaints Eyes: Reports as per HPI and Denies no additional eye complaints Denies system reviewed and no additional complaints, except as documented and Reports as per HPI Cardiovascular: Reports as per HPI, Reports no additional cardiovascular complaints, Denies acrocyanosis, Denies cool extremities, Denies chest pain, Denies leg edema, Denies lightheadedness, Denies palpitations and Denies dyspnea Respiratory: Reports as per HPI, Denies no additional respiratory complaints and Denies dyspnea Gastrointestinal: Reports as per HPI and Denies no additional gastrointestinal complaints Genitourinary: Reports no additional male genitourinary complaints and Reports as per HPI Musculoskeletal: Reports no additional musculoskeletal complaints and Reports as per HPI Skin/Breast: Reports system reviewed and no additional complaints, except as docu Reports system reviewed and no additional complaints, except as documented and Reports as per HPI Psychiatric: Reports no additional psychiatric complaints and Reports as per HPI Endocrine: Reports no additional endocrine complaints, Reports as per HPI and Denies palpitations Hematologic/Lymphatic: Reports no additional hematologic/lymphatic complaints and Reports as per HPI Allergic/Immunologic: Reports no additional allergic/immunologic complaints and Reports as per HPI Physical Exam Vital Signs: Last Vital Signs Temp 96.9 F 12/18/23 07:30 Pulse 82 12/18/23 07:33 Resp 16 12/18/23 07:33 BP 139/65 12/18/23 07:30 Pulse Ox 92 12/18/23 07:30 O2 Del Method Nasal Cannula 12/18/23 07:30 O2 Flow Rate 4 12/18/23 07:30 FiO2 50 12/16/23 09:00 Oxygen Flow Rate 15 12/14/23 02:15 BMI result Body Mass Index 24.8 Const General: comfortable and no acute distress Orientation/consciousness: patient oriented x3 HEENT Other: Unremarkable Head: Yes normal to inspection Neck Neck: Yes normal visual inspection Chest Chest palpation & inspection: normal inspection of the chest Resp Auscultation: clear to auscultation bilaterally Cardio Palpation: normal PMI Heart sounds: S1 normal heart sound present, S2 normal heart sound present, no gallops, no murmurs and no rubs GI Palpation (GI): Soft to palpation Back/Spine/Pelvis Other: unremarkable Skin General skin exam: no rashes or lesions noted Neuro General: patient oriented x3 Extrem General: Yes normal to inspection Psych Mental Status: mental status grossly normal Objective Labs and Meds 12/17/23 06:12 12/18/23 05:27 Lab results: Laboratory Results - last 24 hr 12/17/23 12/17/23 12/17/23 11:15 16:01 20:43 PT INR Sodium Potassium Chloride Carbon Dioxide Anion Gap BUN Creatinine Estim Creat Clear Calc Estimated GFR POC Glucose 194 H 162 H 138 H Random Glucose Calcium 12/18/23 12/18/23 05:27 07:21 PT 18.4 H D INR 1.5 H Sodium 140 Potassium 4.3 D Chloride 98 Carbon Dioxide 29 Anion Gap 17 BUN 48 H Creatinine 1.85 H Estim Creat Clear Calc 34.4 Estimated GFR 35 POC Glucose 124 H Random Glucose 100 Calcium 10.6 H Progress Note: A&P Assessment and plan (1) Atrial fibrillation with RVR: Status: Acute (2) IPF (idiopathic pulmonary fibrosis): Status: Acute (3) Acute cor pulmonale: Status: Acute Plan Recent echocardiogram with LVEF of 60-65%. Severely increased right ventricular size with severely decreased right ventricular systolic function. Severe pulmonary hypertension. Atrial arrhythmias are likely a consequence of right heart dysfunction which is in turn related to severe intrinsic lung disease. Home meds listed as metoprolol 25 mg b.i.d., digoxin alternate days. Seems he got amiodarone in the ICU but may not be a good long-term choice considering his advanced lung disease. He was briefly put on a Cardizem drip and then changed to oral Cardizem. We can can do that but change to sustained once a day preparation. Also beta-blockers. Not much use from digoxin. Continue anticoagulation. Diuretics. Discussed with Dr. Cabral. Time Spent With Patient Time: Total time managing care of this patient today ____ minutes. Progress Note: Quality Stroke Does the patient have a stroke diagnosis?: No Procedures Date of Service Date of Service: 12/18/23
--- NOTE | 2023-12-18 10:52 | HO.PM.IMPN ---
Subjective Subjective Date of Service: 12/18/23 Interval History: Doing well, no new issues, remains in sinus Physical Exam Vital Signs: Vital Signs: Last Vital Signs Temp 96.9 F 12/18/23 07:30 Pulse 82 12/18/23 07:33 Resp 16 12/18/23 07:33 BP 139/65 12/18/23 07:30 Pulse Ox 92 12/18/23 07:30 O2 Del Method Nasal Cannula 12/18/23 07:30 O2 Flow Rate 4 12/18/23 07:30 FiO2 50 12/16/23 09:00 Oxygen Flow Rate 15 12/14/23 02:15 BMI result Body Mass Index 24.8 General: AO X 3, no acute distress Resp: CTA bilateral CVS: S1,S2, RRR GI: +BS, NT, no distention Skin: No rash Neuro: motor grossly intact Psych: appropriate affect Objective Data Active Medications Albuterol Sulfate (Albuterol Sulfate (0.083%) 2.5 Mg/3 Ml Vial.Neb) 2.5 mg INHALE Q4H PRN PRN Reason: wheezing Albuterol/Ipratropium (Albuterol/Iprat 2.5/0.5mg 3 Ml Ampul.Neb) 3 ml INHALE RQ6H WHILE AWAKE [facility] Last Admin: 12/18/23 07:31 Dose: 3 ml Documented By: VY Aspirin (Aspirin Enteric Coated 81 Mg Tablet.Dr) 81 mg PO DAILY [facility] Last Admin: 12/18/23 08:30 Dose: 81 mg Documented By: KYLER Atorvastatin Calcium (Atorvastatin Calcium 40 Mg Tablet) 40 mg PO BEDTIME [facility] Last Admin: 12/17/23 21:09 Dose: 40 mg Documented By: LAYO Bumetanide (Bumetanide 1 Mg Tablet) 2 mg PO BID@0800,1700 [facility]; Protocol Last Admin: 12/18/23 08:31 Dose: 2 mg Documented By: KYLER Digoxin (Digoxin 0.125 Mg Tablet) 0.125 mg PO DAILY [facility] Last Admin: 12/18/23 08:31 Dose: 0.125 mg Documented By: KYLER Diltiazem HCl (Diltiazem Hcl Cd 240 Mg Cap.Er.Deg) 240 mg PO DAILY [facility]; Protocol Last Admin: 12/18/23 08:30 Dose: 240 mg Documented By: KYLER Empagliflozin (Empagliflozin 25 Mg Tablet) 25 mg PO DAILY [facility] Last Admin: 12/18/23 08:31 Dose: 25 mg Documented By: KYLER Fluticasone/Umeclidinium/Vilanterol (Fluticasone/Umeclidinium/Vilanterol 100/62.5/25 Blst.W.Dev) 1 puff INHALE RDAILY [facility] Last Admin: 12/18/23 07:31 Dose: 1 puff Documented By: VY Folic Acid (Folic Acid 1 Mg Tablet) 1 mg PO DAILY [facility] Last Admin: 12/18/23 08:31 Dose: 1 mg Documented By: KYLER Ceftriaxone Sodium 1 gm/ (Sodium Chloride) 50 mls @ 100 mls/hr IV Q24H [facility] Last Infusion: 12/18/23 10:43 Dose: Infused Documented By: KYLER Insulin Glargine (Insulin Glargine,Hum.Rec.Anlog 100 Unit/Ml 10 Ml Vial) 10 unit SUBCUT DAILY [facility] Last Admin: 12/18/23 08:29 Dose: 10 unit Documented By: KYLER Insulin Human Lispro (Insulin Lispro 100 Unit/Ml 3 Ml Vial) 0 unit SUBCUT QIDACHS [facility]; Protocol Last Admin: 12/18/23 07:34 Dose: Not Given Documented By: KYLER Non-Admin Reason: No Insulin Coverage Metoprolol Succinate (Metoprolol Succinate Er 50 Mg Tab.Er.24h) 50 mg PO DAILY [facility]; Protocol Last Admin: 12/18/23 08:31 Dose: 50 mg Documented By: KYLER Nitroglycerin (Nitroglycerin 0.4 Mg Tab.Subl) 0.4 mg SUBLINGUAL Q5M PRN PRN Reason: Chest Pain Omeprazole (Omeprazole 40 Mg Capsule.Dr) 40 mg PO DAILY@0630 [facility] Last Admin: 12/18/23 05:49 Dose: 40 mg Documented By: LAYO Polyethylene Glycol (Polyethylene Glycol 3350 17 Gm Powd.Pack) 17 gm PO DAILY PRN PRN Reason: Constipation Last Admin: 12/18/23 08:35 Dose: 17 gm Documented By: KYLER Prednisone (Prednisone 2.5 Mg Tablet) 7.5 mg PO DAILY [facility] Last Admin: 12/18/23 08:32 Dose: 7.5 mg Documented By: KYLER Sacubitril/Valsartan (Sacubitril/Valsartan 49/51 1 Tab Tablet) 1 tab PO BID [facility]; Protocol Last Admin: 12/18/23 08:31 Dose: 1 tab Documented By: KYLER Sildenafil Citrate (Sildenafil Citrate 20 Mg Tablet) 20 mg PO TID [facility] Last Admin: 12/18/23 08:30 Dose: 20 mg Documented By: KYLER Timolol Maleate (Timolol Maleate 0.5 % Oph Kylah 5 Ml Drbtl) 1 drop EYE-BOTH DAILY [facility] Last Admin: 12/18/23 08:28 Dose: 1 drop Documented By: KYLER Tramadol HCl (Tramadol Hcl 50 Mg Tablet) 50 mg PO BID PRN PRN Reason: Pain, Moderate Warfarin Sodium (Warfarin Sodium 5 Mg Tablet) 5 mg PO DAILY@1800 [facility] Last Admin: 12/17/23 17:35 Dose: 5 mg Documented By: KYLER Labs 12/17/23 06:12 12/18/23 05:27 Labs: Laboratory Results - last 24 hr 12/17/23 12/17/23 12/17/23 11:15 16:01 20:43 PT INR Anion Gap Estim Creat Clear Calc Estimated GFR POC Glucose 194 H 162 H 138 H Random Glucose Calcium 12/18/23 12/18/23 05:27 07:21 PT 18.4 H D INR 1.5 H Anion Gap 17 Estim Creat Clear Calc 34.4 Estimated GFR 35 POC Glucose 124 H Random Glucose 100 Calcium 10.6 H Assessment and Plan (1) Acute cor pulmonale: Status: Acute (2) Atrial fibrillation with RVR: Status: Acute (3) IPF (idiopathic pulmonary fibrosis): Status: Acute Plan 78-year-old male with past medical history of HFpEF s/p CardioMEMS, Pulmonary HTN/cor Pulmonale, IPF, ashmta/COPD on 4 liters of O2 at baseline, PAF, RA on chronic steroid, HTN he was admitted throught the ICU for acute hypoxic resp failure that required rescue BiPAP and while in the ICU noted possible SVT /AFIB with RVR and started on amio drip, transfered ovenight and this morning, noted again to be having episodes of tachycardic up to 190s,..rythm mre consistent AFIB with RVR and was startedon IV cardizem drip PAF with RVR--> Sinus rhythm -Toprolol XL 50 -stop dig -Oral cardizem 240 mg daily -continue coumdin INR 1.5, increase dose of coumadin today and repeat in coumadin clinic Chronic HFpEF with exacerbation, now compensated, change to PO Bumex COPD with chronic resp failure on 4 liters at home, continue inhalers RA--continue Prednisone HTN--continue Metoprolol, entresto and now cardizem Diabetes--continue Lantus, SSI, diabetic diet HLD--Lipior CKD, Stage 3B Moderate CKD (GFR = 30-44 mL/min)--Stable, follow while on iv diuretics DVT prophylaxis--Coumadin Requires ongoing inpatient hospital stay for further management of respiratory failure/CHF - on IV diuretics and IV med for AFIB with RVR and med adjustment Possible discharge later today Quality Stroke Does the patient have a stroke diagnosis?: No VTE Prior VTE?: No VTE Risk Level:: Medical - moderate - high VTE Device Contraindication: Treatment Not Indicated VTE Drug Contraindication: Treatment Not Indicated
--- NOTE | 2023-12-18 11:02 | P.DS_ITS ---
DS: Providers Provider Date of Service: 12/18/23 Date of admission: 12/14/23 06:26 Primary care physician: Moris Machado III, MD Consults: 12/17/23 08:40 Consult to Cardiology Routine Consulting Provider: [facility] Reason for consultation: Vat h; chf Has provider been notified: Yes DS: Diagnosis Discharge Diagnosis (1) Acute cor pulmonale: Status: Acute (2) Atrial fibrillation with RVR: Status: Acute (3) IPF (idiopathic pulmonary fibrosis): Status: Acute DS: Summary Hospital Course Hospital Course: Admission HPI Chief Complaint: Shortness of breath 78-year-old gentleman with underlying cor pulmonale, advanced COPD, IPF, prior CAD with [place], rheumatoid arthritis admitted on 12/14/2023 with dyspnea. On ER evaluation leukocytosis with elevated BNP. Patient started on empiric diuretic and antibiotic regimen. He required CPAP to maintain normal oximetry and was admitted to intensive care unit. Hospital course: The patient presented with shortness of breath and was admitted to the ICU for rescue CPAP. He was started on IV diuretics for acute heart failure/Core pulmonale, and antibiotics were initiated for pneumonia. While in the ICU, he experienced episodes of AFIB with RVR with heart rate reaching 200s, and was given IV Amiodarone. He showed improvement and was transferred to [facility] but continued to have intermittent AFIB with RVR, with heart rate up to 190s. He was started on IV Cardizem, and shortly thereafter, he converted to normal sinus rhythm. Cardiology evaluated him and recommended transitioning to oral Cardizem 60 mg four times a day. He has now been converted to Cardizem CD 240 mg daily. The INR has dropped to 1.5, and the Coumadin dose will be increased to 7.5 today. Follow-up with the Coumadin clinic is advised in 1 to 2 days For the pneumonia noted on CT, the patient was started on Ceftriaxone and Azithromycin in the ICU. Upon discharge, he will continue with Ceftin 500 mg twice daily for four more days, completing a total of 7 days of antibiotics. Time Attestation Discharge coordination time: Greater than 30 minutes Quality: Safe Use of Opioids Does Pt have an Active Cancer Diagnosis on the Problem List?: No Quality: Stroke Does the patient have a stroke diagnosis?: No Physical Exam Vital Signs: Vital Signs: Last Vital Signs Temp 96.9 F 12/18/23 07:30 Pulse 82 12/18/23 07:33 Resp 16 12/18/23 07:33 BP 139/65 12/18/23 07:30 Pulse Ox 92 12/18/23 07:30 O2 Del Method Nasal Cannula 12/18/23 07:30 O2 Flow Rate 4 12/18/23 07:30 FiO2 50 12/16/23 09:00 Oxygen Flow Rate 15 12/14/23 02:15 BMI result Body Mass Index 24.8 General: AO X 3, no acute distress Resp: CTA bilateral CVS: S1,S2,RRR GI: +BS, NT, no distention Skin: No rash Neuro: motor grossly intact Psych: appropriate affect DS: Data Data Completed and Pending Labs on day of discharge: Laboratory Results - last 24 hr 12/17/23 12/17/23 12/17/23 11:15 16:01 20:43 PT INR Sodium Potassium Chloride Carbon Dioxide Anion Gap BUN Creatinine Estim Creat Clear Calc Estimated GFR POC Glucose 194 H 162 H 138 H Random Glucose Calcium 12/18/23 12/18/23 05:27 07:21 PT 18.4 H D INR 1.5 H Sodium 140 Potassium 4.3 D Chloride 98 Carbon Dioxide 29 Anion Gap 17 BUN 48 H Creatinine 1.85 H Estim Creat Clear Calc 34.4 Estimated GFR 35 POC Glucose 124 H Random Glucose 100 Calcium 10.6 H Preliminary micro results at discharge 12/14/23 03:21 Blood Culture - Preliminary Blood - Venous No growth after 48 hours. 12/14/23 03:16 Blood Culture - Preliminary Blood - Venous No growth after 48 hours. Discharge Plan Discharge Anticipated Discharge Date/Time: 12/18/23 10:56 Patient Disposition: Home Health Service Discharge Diagnosis: AFIB with RVR Referrals: Moris Machado III, MD [Primary Care Provider] - 1 Week Discharge Medications: New metoprolol succinate 50 mg Tablet Extended Release 24 Hr 50 mg PO DAILY Qty: 30 1RF Protocol: Hold for SBP/HR < HOLD for SBP < : 90 HOLD for HR < : 60 diltiazem HCl 240 mg Capsule,Extended Release 24hr 240 mg PO DAILY Qty: 30 1RF Protocol: Hold for SBP/HR < HOLD for SBP < : 90 HOLD for HR < : 60 cefuroxime axetil 500 mg tablet 500 mg PO BID 4 Days Qty: 8 0RF Continued folic acid 400 mcg tablet 400 mcg PO DAILY tramadol 50 mg tablet 1 tab PO BID PRN (Reason: Pain, Moderate) timolol maleate 0.5 % drops 1 drp ophthalmic (eye) DAILY rosuvastatin 10 mg tablet 1 tab PO BEDTIME Humira(CF) Pen 40 mg/0.4 mL pen injector kit 40 mg subcut Q2W Rx Instructions: TUE aspirin 81 mg Tablet,Delayed Release (Dr/Ec) 81 mg PO DAILY nitroglycerin 0.4 mg tablet, sublingual 0.4 mg sublingual NEEDED PRN (Reason: Chest Pain) fluticasone furoate-vilanterol [Breo Ellipta] 200-25 mcg/dose blister with device 1 puff inhalation DAILY omeprazole 40 mg capsule,delayed release(DR/EC) 40 mg PO DAILY@0630 insulin glargine [Lantus Solostar U-100 Insulin] 100 unit/mL (3 mL) insulin pen 20 unit subcut QPM Qty: 15 2RF prednisone 5 mg tablet 7.5 mg PO DAILY warfarin [Jantoven] 2.5 mg tablet 5 mg PO DAILY@1800 Jardiance 25 mg tablet 25 mg PO DAILY Entresto 49-51 mg Tablet 1 tab PO BID Qty: 30 1RF Protocol: Hold for SBP< HOLD for SBP < : 90 bumetanide 1 mg tablet 1 mg PO BID Qty: 60 0RF albuterol sulfate [Ventolin HFA] 90 mcg/actuation HFA aerosol inhaler 2 puff INHALATION Q4H PRN (Reason: wheezing) albuterol sulfate 2.5 mg /3 mL (0.083 %) solution for nebulization 2.5 mg inhalation Q4H PRN (Reason: wheezing) Discontinued digoxin 125 mcg (0.125 mg) Tablet 0.125 mg PO Q2D Qty: 30 0RF metoprolol tartrate 25 mg Tablet 25 mg PO BID Qty: 60 2RF Protocol: Hold for SBP/HR < HOLD for SBP < : 90 HOLD for HR < : 60 Discharge Orders: Discharge Order (Routine); Ordered 12/18/23 Ordered By: Deon Cabral Diet: Diabetic diet Activity on Discharge: As tolerated Stand Alone Forms: Patient Portal Discharge page Care Plan Goals: Controlled of atrial fibrilation and heart failure Health Concerns: Heart Failure core pulmonale Atrifal fibrilation Plan of Treatment: Stop taking Metoprolol 25 mg twice daily and it is replaced with Toprolol XL 50 mg daily Stop taking Digoxon Start Taking Cardizem 240 mg daily to control atrial fibrilation continue taking your other medications as usual follow up with your Doctor in a week, call for appointment Take coumadin 7.5 mg today (1 and half tab of 5 mg)--get INR level in 1 or 2 days Assessment: See above Patient Instructions: Diltiazem (By mouth)
[2023-12-18 11:22] LABS: Glucose, Whole Blood 208 mg/dL (60-115)
[2023-12-18 11:26] VITALS: BP 107/59; PULSE 85; RESP 20; TEMP 36.3; O2SAT 92
[2023-12-18] MEDS: Insulin Lispro 100 UNIT/ML 3 ML VIAL SUBCUT (11:58)
--- NOTE | 2023-12-18 14:22 | MHC.CM.PN ---
PT WILL DC HOME TODAY WITH [facility] VIA PRIVATE TRANSPORT
== END 2023-12-18 13:33 | disposition home health service (06) | DRG 314 ==
LOC: HO.ED 05:36 → HO.EDOVER 06:29 → HO.ICU 07:13 → HO.IMC 12-17 04:06
PROVIDERS: Student in an Organized Health Care Education/Training Program; Admitting Provider Internal Medicine Pulmonary Disease; Emergency Provider Emergency Medicine; PCP Internal Medicine; Visit Provider Internal Medicine
DX: I27.81 Cor pulmonale (chronic) (principal); I50.33 Acute on chronic diastolic (congestive) heart failure; J96.01 Acute respiratory failure with hypoxia; I13.0 Hypertensive heart and chronic kidney disease with heart failure and stage 1 through stage 4 chronic kidney disease, or unspecified chronic kidney disease; J44.1 Chronic obstructive pulmonary disease with (acute) exacerbation; M06.9 Rheumatoid arthritis, unspecified; I25.10 Atherosclerotic heart disease of native coronary artery without angina pectoris; L89.151 Pressure ulcer of sacral region, stage 1; I48.0 Paroxysmal atrial fibrillation; E78.5 Hyperlipidemia, unspecified; J84.10 Pulmonary fibrosis, unspecified; E11.22 Type 2 diabetes mellitus with diabetic chronic kidney disease; I27.29 Other secondary pulmonary hypertension; N18.32 Chronic kidney disease, stage 3b; E11.65 Type 2 diabetes mellitus with hyperglycemia; I50.813 Acute on chronic right heart failure; Z20.822 Contact with and (suspected) exposure to COVID-19; Z87.891 Personal history of nicotine dependence; Z79.4 Long term (current) use of insulin; Z79.51 Long term (current) use of inhaled steroids; Z79.52 Long term (current) use of systemic steroids; Z79.84 Long term (current) use of oral hypoglycemic drugs; Z79.899 Other long term (current) drug therapy
CPT/HCPCS: 36415; 71045; 71250; 80048; 80053; 80076; 82040; 82803; 82947; 83605; 83735; 83880; 84100; 84484; 85025; 85379; 85610; 87040; 87502; 87635; 93005; 94640; 99285; C1758; J0282; J0283; J0696; J1160; J1939; J1940; J2543; J3370; J3475

== ENCOUNTER → 2023-12-14 02:20 | Outpatient (BNV) | payer MEDICARE, MEDICAID, SELFPAY | PROVIDERS: Admitting Provider Internal Medicine Pulmonary Disease; Emergency Provider Emergency Medicine; PCP Internal Medicine; Visit Provider Internal Medicine | DX: I49.1 Atrial premature depolarization (principal); R94.31 Abnormal electrocardiogram [ECG] [EKG] | CPT/HCPCS: 93010 ==

== ENCOUNTER 2023-12-14 06:26 | Outpatient (BNV) | payer MEDICARE, MEDICAID, SELFPAY | END 2023-12-17 09:06 | PROVIDERS: Admitting Provider Internal Medicine Pulmonary Disease; Emergency Provider Emergency Medicine; PCP Internal Medicine; Visit Provider Internal Medicine | DX: R00.0 Tachycardia, unspecified (principal); Z95.0 Presence of cardiac pacemaker; I45.10 Unspecified right bundle-branch block | CPT/HCPCS: 93010 ==

== ENCOUNTER → 2023-12-14 06:26 | Outpatient (BNV) | payer MEDICARE, MEDICAID, SELFPAY | PROVIDERS: Admitting Provider Internal Medicine Pulmonary Disease; Emergency Provider Emergency Medicine; PCP Internal Medicine; Visit Provider Internal Medicine | DX: I26.09 Other pulmonary embolism with acute cor pulmonale (principal); I48.91 Unspecified atrial fibrillation; J84.112 Idiopathic pulmonary fibrosis | CPT/HCPCS: 99233; 99239 ==

== ENCOUNTER → 2023-12-14 06:26 | Outpatient (BNV) | payer MEDICARE, MEDICAID, SELFPAY | PROVIDERS: Admitting Provider Internal Medicine Pulmonary Disease; Emergency Provider Emergency Medicine; Visit Provider Internal Medicine Pulmonary Disease | DX: J84.112 Idiopathic pulmonary fibrosis (principal); J44.1 Chronic obstructive pulmonary disease with (acute) exacerbation; J96.21 Acute and chronic respiratory failure with hypoxia; I48.91 Unspecified atrial fibrillation; I50.9 Heart failure, unspecified | CPT/HCPCS: 99232; 99291 ==

== ENCOUNTER → 2023-12-14 06:26 | Outpatient (BNV) | payer MEDICARE, MEDICAID, SELFPAY | PROVIDERS: Admitting Provider Internal Medicine Pulmonary Disease; Emergency Provider Emergency Medicine; PCP Internal Medicine; Visit Provider Internal Medicine | DX: I48.91 Unspecified atrial fibrillation (principal); J84.112 Idiopathic pulmonary fibrosis; I26.09 Other pulmonary embolism with acute cor pulmonale | CPT/HCPCS: 99223; 99233 ==

== ENCOUNTER 2023-12-23 10:42 | Outpatient (AMB) | payer MEDICARE, MEDICAID, SELFPAY ==
[2023-12-23 10:50] VITALS: BP 128/70; PULSE 74; O2SAT 81; BMI 24.4
--- NOTE | 2023-12-23 10:50 | A.OFFVIS_ITS ---
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 The patient is 78-year-old gentleman with a known history of emphysema, interstitial lung disease along with severe pulmonary hypertension on hot oxygen requirements. He has been followed closely at [facility]. The patient was evaluated and placed on prednisone, initially starting at 10 mg and now 7.5 mg in part to treat the interstitial lung disease likely related to the underlying connective tissue disease. Recently he was admitted to the hospital worsening shortness of breath. He was treated appropriately. He did have a CT scan of the chest that I personally reviewed. He does have moderate to severe emphysema and also bilateral interstitial lung disease. No significant change when compared to 2020 which is reassuring that is not significantly progressive. However, patient also had an echocardiogram demonstrating very severe elevations in his pulmonary pressures with a very dilated RV concerning for potentially even higher pulmonary arterial pressures. During the visit we did go for brief walking oximetry in the patient did desaturate in the pulse oxygen that he came in with and at rest he did need 4 L continuous oxygen. Explained to him that the pulse does not work for him. He needs to be on continues oxygen and he is agreeable to this and will make arrangements with his [employer] company. In addition that with walking on 6 L he barely was able to keep a 88%. Therefore, I will request an Oxymizer pendant from his [employer] company in order to provide him enough oxygen. I do believe that his pulmonary hypertension is out of proportion to those pulmonary disease that he has. In his EF and left ventricular anatomy appears to be normal. Therefore, I do believe that considering a basal dilator to treat severe pulmonary hypertension that is out of proportion to his underlying pulmonary disease would be reasonable. The patient does have co nnective tissue disease which can predispose to group 1 pulmonary hypertension. [facility] Medical History (Updated 12/23/23 @ 12:49 by Shon Samson MD) Pulmonary hypertension Chronic respiratory failure ILD (interstitial lung disease) Acute exacerbation of CHF (congestive heart failure) SVT (supraventricular tachycardia) CHF exacerbation Chronic anticoagulation Atrial fibrillation Chronic hypoxemic respiratory failure Hypertension Rheumatoid arthritis Lymphadenopathy COPD exacerbation Surgical History Hx of colonoscopy Social History Household Members: Significant Other Housing: Apartment Do you presently have visiting nurse or other home services: Yes Alcohol intake: never Patient Tobacco Use Status: Former Tobacco user Quit Date: 23 years ago Tobacco use type: Cigarette Years Smoked: 40 e-Cigarette/Vaping Use: Former Use Advance Directives Date on File: 06/27/23 service: No Current occupational status: retired Review of Systems Const Denies fever(s) Eyes Reports no additional complaints ENT Reports nasal congestion Card Reports dyspnea and Reports dyspnea on exertion Resp Reports dyspnea, Reports dyspnea on exertion and Denies wheezing GI Reports no additional complaints Musc Reports as per HPI, Reports abnormal gait, Reports myalgias, Reports arthralgias and Reports joint swelling Skin/Breast Denies rash Neuro Reports abnormal gait Nasir/Lymph Denies lymphadenopathy Aller/Immun Denies wheezing Physical Exam Vital Signs: Last Vital Signs Pulse 74 12/23/23 10:50 BP 128/70 12/23/23 10:50 Pulse Ox 81 L 12/23/23 10:50 Oxygen Delivery Method Room Air 12/23/23 10:50 BMI result Body Mass Index 24.4 Last Vital Signs Temp 98 F 11/22/21 18:56 Pulse 97 11/22/21 20:41 Resp 16 11/22/21 19:37 BP 148/67 H 11/22/21 20:41 Pulse Ox 91 L 11/22/21 18:56 BMI result Body Mass Index 27.8 Const General: alert HEENT Head: Yes normocephalic Neck Neck: Yes normal visual inspection, Yes full ROM and Yes no lymphadenopathy Chest Chest palpation & inspection: normal inspection of the chest Resp Effort & Inspection: normal respiratory effort Auscultation: no rhonchi and diminished lung sounds Cardio Rate: regular rate Rhythm: regular rhythm Heart sounds: S1 normal heart sound present and S2 normal heart sound present GI Palpation (GI): Soft to palpation and nontender Auscultation: normal bowel sounds Skin General skin exam: no rashes or lesions noted Extrem General: Yes clubbing and No cyanosis Office Procedures 6 Minute Walk Time:: 12:53 SPO2 % at rest: 82 Pulse at rest: 89 Distance in yards walked: 150 Leif Score: 5 Supplemental Oxygen: The patient was very hypoxic at room air 82%. He was placed on 4 L keeping the pulse ox around 94% he was not ambulated in on 6 L maintain a pulse ox of 88%. Therefore, will request 6 L with an Oxymizer pendant to try to keep his pulse ox between 88-94% 62124 - 6 Minute Walk Assessment & Plan Assessment & Plan (1) COPD (chronic obstructive pulmonary disease): Code(s): J44.9 - Chronic obstructive pulmonary disease, unspecified Qualifiers: COPD type: emphysema Emphysema type: centrilobular Qualified Code(s): J43.2 - Centrilobular emphysema (2) Chronic respiratory failure: Code(s): J96.10 - Chronic respiratory failure, unspecified whether with hypoxia or hypercapnia Qualifiers: Respiratory failure complication: hypoxia Qualified Code(s): J96.11 - Chronic respiratory failure with hypoxia (3) Pulmonary hypertension: Code(s): I27.20 - Pulmonary hypertension, unspecified (4) ILD (interstitial lung disease): Code(s): J84.9 - Interstitial pulmonary disease, unspecified Plan Continue Breo JORGITO as needed Oxygen revision: 4L/min via nasal cannula at rest and 6L/min via Oximizer pendant Will discuss with Cardiology the use of PD5 inhibitors for pulmonary HTN diuresis as tolerated PFTs F/U in 6-8 weeks Orders: Orders PFT pulmonary function test Today J84.9 - Interstitial pulmonary disease, unspecified Coding Level of Care Code Est Pt Level 5 (77493) Diagnoses Centrilobular emphysema J43.2 COPD type: emphysema Emphysema type: centrilobular Chronic respiratory failure with hypoxia J96.11 Respiratory failure complication: hypoxia Pulmonary hypertension I27.20 ILD (interstitial lung disease) J84.9 CPT Codes Coding ([id number]) Time Spent (min) 60
[2023-12-23 12:54] VITALS: PULSE 89; O2SAT 82
== END 2023-12-23 11:31 | disposition home or self-care (01) ==
PROVIDERS: PCP Internal Medicine; Referring Provider Internal Medicine; Visit Provider Hospitalist
DX: J43.2 Centrilobular emphysema (principal); J96.11 Chronic respiratory failure with hypoxia; I27.20 Pulmonary hypertension, unspecified; J84.9 Interstitial pulmonary disease, unspecified
CPT/HCPCS: 94618; 99215

== ENCOUNTER → 2023-12-23 10:42 | Outpatient (BNVA) | payer MEDICARE, MEDICAID, SELFPAY | PROVIDERS: PCP Internal Medicine; Referring Provider Internal Medicine; Visit Provider Hospitalist | DX: J43.2 Centrilobular emphysema (principal); J96.11 Chronic respiratory failure with hypoxia; J84.9 Interstitial pulmonary disease, unspecified; I27.20 Pulmonary hypertension, unspecified; Z79.899 Other long term (current) drug therapy | CPT/HCPCS: 94618; 99212 ==

== ENCOUNTER → 2024-01-06 23:59 | Outpatient (BNV) | payer MEDICARE, MEDICAID, SELFPAY ==
--- NOTE | 2024-01-10 17:46 | A.OFFVIS_ITS ---
Intake Intake Visit Reasons: Remote CardioMEMS Check- [facility] Allergies No Known Allergies Allergy (Unknown, Verified 12/23/23 10:54) NOT APPLICABLE PFSH Medical History (Updated 12/26/23 @ 00:03 by Background Pierce) Pulmonary hypertension Chronic respiratory failure IPF (idiopathic pulmonary fibrosis) CHF (congestive heart failure) (HFpEF) heart failure with preserved ejection fraction ILD (interstitial lung disease) COPD (chronic obstructive pulmonary disease) Acute exacerbation of CHF (congestive heart failure) SVT (supraventricular tachycardia) CHF exacerbation Chronic anticoagulation Atrial fibrillation Chronic hypoxemic respiratory failure Hypertension Rheumatoid arthritis Lymphadenopathy COPD exacerbation Surgical History Hx of colonoscopy Social History Household Members: Significant Other Housing: Apartment Do you presently have visiting nurse or other home services: Yes Alcohol intake: never Patient Tobacco Use Status: Former Tobacco user Quit Date: 23 years ago Tobacco use type: Cigarette Years Smoked: 40 e-Cigarette/Vaping Use: Former Use Advance Directives Date on File: 06/27/23 service: No Current occupational status: retired Office Procedures Cardiac Device Check Cardiac Device Check Details: Monitoring period dates: 11/28/23 - 01/06/24 Optimal PA pressure range: PA Mean goal 45 mmhg Procedure code: 48481 BACKGROUND: Tommy is implanted with the CardioMEMS PA Sensor.? I use this technology to monitor PA pressures on a weekly basis to ensure patients are within their optimal range to prevent decompensation.? SUMMARY:? I utilized the remote monitoring platform (Qalendra) to set optimal targets for pulmonary artery pressure thresholds as part of acute and chronic management of patient?s heart failure. During the period indicated above, I monitored the patient?s pulmonary artery pressures weekly via trend analysis and notification reports which provide alerts when patient?s PA pressures were outside of range to prompt immediate action in medication changes and communications.? The weekly reports are archived in the Qalendra system which serve as a parallel record to document weekly PA pressures, medication changes, and clinical notes. I have reviewed readings on 11/29, 12/05, 12/12, 12/15, 12/20, 12/27, 01/03. His ADDY has ranged between 46-64mmhg. He was admitted for HF and diuresed. He has pulmonary HTN contributing to high readings. 57112 - Remote monitoring of wireless pulmonary artery pressure sensor Procedure code (CPT) selection complete Assessment & Plan Assessment & Plan (1) Presence of CardioMEMS HF system: Code(s): Z95.818 - Presence of other cardiac implants and grafts Plan: monthly report Coding Level of Care Code Procedure Only Diagnoses Presence of CardioMEMS HF system Z95.818 CPT Codes Cardiac Device Check - Cardiac Device 17: 81701 - Remote monitoring of wireless pulmonary artery pressure sensor ([id number])
== END ==
PROVIDERS: PCP Internal Medicine; Visit Provider Nurse Practitioner Family
DX: I50.30 Unspecified diastolic (congestive) heart failure (principal); Z95.818 Presence of other cardiac implants and grafts
CPT/HCPCS: 93264

== ENCOUNTER 2024-02-02 09:57 | Outpatient (AMB) | payer OTHER, SELFPAY ==
[2024-02-02 10:05] VITALS: BP 120/64; PULSE 78; BMI 25.2
--- NOTE | 2024-02-02 10:05 | A.OFFVIS_ITS ---
Intake Vital Signs 02/02/24 10:05 Height 5 ft 11 in Weight 180 lb 12.465 oz BMI 25.2 BP 120/64 Blood Pressure Location Lt brachial Position Sitting Pulse 78 Pulse Source Pulse Oximeter Intake Visit Reasons: 4 mth fu Central Processing Technician Required: Yes Central Processing Technician Language: Day Habilitation Supervisor Name: mehnaz bowman [id number] Agile Qa Tester: Agile Qa Tester Present Allergies No Known Allergies Allergy (Unknown, Verified 02/02/24 10:08) NOT APPLICABLE Medication List - Last Reconciled 02/02/24 by ORIN Greer adalimumab (Humira(CF) Pen) 40 mg subcut Q2W albuterol sulfate 90 mcg/actuation (Ventolin HFA) 2 puffs inhalation Q4H PRN albuterol sulfate 2.5 mg (3 mL) inhalation Q4H PRN albuterol sulfate 2.5 mg (3 mL) inhalation Q6H PRN 30 days aspirin 81 mg PO DAILY bumetanide 1 mg PO BID diltiazem HCl 240 mg See Protocol PO DAILY empagliflozin (Jardiance) 25 mg PO DAILY fluticasone furoate-vilanterol 200-25 mcg/dose (Breo Ellipta) 1 puff inhalation DAILY folic acid 400 mcg PO DAILY insulin glargine (Lantus Solostar U-100 Insulin) 20 units (0.2 mL) subcut QPM metoprolol succinate ER 50 mg See Protocol PO DAILY nebulizers As directed nitroglycerin 0.4 mg sublingual NEEDED PRN omeprazole 40 mg PO DAILY@0630 Oxygen Home Use As directed prednisone 7.5 mg PO DAILY rosuvastatin 1 tab PO BEDTIME sacubitril-valsartan 49-51 mg (Entresto) 1 tab See Protocol PO BID sildenafil (pulm.hypertension) (Revatio) 20 mg PO TID 30 days timolol maleate 0.5% 1 drp ophthalmic (eye) DAILY tramadol 1 tab PO BID PRN warfarin (Jantoven) 5 mg PO DAILY@1800 HPI 4 mth fu HPI Details Tommy is a 78-year-old male with past medical history of hypertension, COPD, heart failure with preserved EF, SVT, paroxysmal AFib, CardioMEMS device in place who was recently admitted to [facility] x2 for shortness breath . During his 1st admission he was treated for heart failure. During his 2nd admission he was treated for pneumonia, respiratory failure and AFib RVR. He was discharged with Bumex 1 mg b.i.d. Today he reports he has been doing well since his last hospital discharge in November. He wears his oxygen continually. He sleeps with 1 pillow. He denies PND, orthopnea or edema. He does have an intermittent cough. No chest discomfort at rest or with activity. No heart palpitations, lightheadedness, presyncope, syncope, falls. Taking all meds as directed. is present. Certified felt cementer used. [facility] Medical History Pulmonary hypertension Chronic respiratory failure IPF (idiopathic pulmonary fibrosis) CHF (congestive heart failure) (HFpEF) heart failure with preserved ejection fraction ILD (interstitial lung disease) COPD (chronic obstructive pulmonary disease) Acute exacerbation of CHF (congestive heart failure) SVT (supraventricular tachycardia) CHF exacerbation Chronic anticoagulation Atrial fibrillation Chronic hypoxemic respiratory failure Hypertension Rheumatoid arthritis Lymphadenopathy COPD exacerbation Surgical History Hx of colonoscopy Social History Household Members: Significant Other Housing: Apartment Do you presently have visiting nurse or other home services: Yes Alcohol intake: never Patient Tobacco Use Status: Former Tobacco user Quit Date: 23 years ago Tobacco use type: Cigarette Years Smoked: 40 e-Cigarette/Vaping Use: Former Use Advance Directives Date on File: 06/27/23 service: No Current occupational status: retired Review of Systems Const All systems reviewed & are unremarkable except as noted in HPI and below ENT Denies dizziness Card Denies chest pain, Denies chest pain at rest, Denies chest pain with activity, Denies rapid heart rate, Denies pedal edema, Denies edema, Denies leg edema, Denies lightheadedness, Denies palpitations, Denies dyspnea, Reports dyspnea on exertion and Denies orthopnea Resp Details: wearing O2 supplement continually Denies cough, Denies dyspnea and Reports dyspnea on exertion GI Denies hematochezia and Denies change in stool character Musc Denies abnormal gait, Denies limited range of motion, Denies muscle cramps, Denies muscle weakness, Denies numbness, Denies radiating pain into limb, Denies stiffness and Denies tingling Neuro Denies abnormal gait, Denies dizziness, Denies numbness and Denies tingling Endo Denies palpitations Physical Exam Vital Signs: Last Vital Signs Pulse 78 02/02/24 10:05 BP 120/64 02/02/24 10:05 BMI result Body Mass Index 25.2 Const General: cooperative, healthy appearing, comfortable and no acute distress Orientation/consciousness: patient oriented x3 Neck Neck: Yes normal visual inspection and Yes no JVD Resp Other: diminished lung sounds Effort & Inspection: normal respiratory effort Auscultation: clear to auscultation bilaterally, no rales, no rhonchi and no wheezes Cardio Jugular venous distension: no JVD Rate: regular rate Rhythm: regular rhythm Heart sounds: S1 normal heart sound present, S2 normal heart sound present, no murmurs and no rubs Neuro General: patient oriented x3 Extrem General: Yes normal to inspection, No no pedal edema and No calf tenderness Psych Appearance: grossly normal Mental Status: mental status grossly normal Speech and movement: Normal speech and movement present Assessment & Plan Assessment & Plan (1) (HFpEF) heart failure with preserved ejection fraction: Code(s): I50.30 - Unspecified diastolic (congestive) heart failure Plan: History of heart failure with preserved EF. Known to have at least moderate pulmonary hypertension. CardioMEMS device in place to help with heart failure management. PA pressures to be monitored daily at this time and diuretics can be adjusted as warranted. He did have 2 recent hospital admissions: 1 with heart failure with preserved EF. He was discharged with Lasix 40 mg b.i.d, Entresto was increased and digoxin added. He then was readmitted 2 weeks later with shortness of breath and treated for pneumonia and acute hypoxic respiratory failure, AFib RVR. He was discharged with Bumex 1 mg b.i.d.. His digoxin had been stopped. And he was continued on metoprolol and diltiazem for heart rate control. Last echocardiogram was done on 11/30/2023 showing EF 60-65%, severe increase in the RV size, severe decrease in the RV systolic function, mild TR, severe pulmonary hypertension. Following discharge sildenafil has been added by his political researcher for the treatment of pulmonary hypertension. His CardioMEMS readings have been fairly stable with his PA mean running around 45 mmHg which seems to be a baseline goal for him. Today he reports that his breathing has been stable since his last hospital discharge on 12/18/2023. He wears his oxygen supplement continually. On examination he does not appear fluid overloaded. Continue current meds without change including Bumex, Entresto, metoprolol, diltiazem. Signs and symptoms of heart failure reviewed. Continue CardioMEMS readings. Cardiology office visit 3 months, sooner if needed. (2) Atrial fibrillation: Code(s): I48.91 - Unspecified atrial fibrillation Plan: History of paroxysmal atrial fibrillation. Issues with AFib RVR during last hospital admission. He was treated with IV amiodarone then changed back over to diltiazem. He with metoprolol succinate 50 mg daily and diltiazem CD 240 mg daily. His pulse rate is in the normal range today. He denies any recent heart palpitations. His pulse is regular on examination. He is on Coumadin for anticoagulation. Follows with [facility]. No bleeding issues reported. (3) SVT (supraventricular tachycardia): Code(s): I47.1 - Supraventricular tachycardia Plan: Prior history of SVT. No recent events. Continues on metoprolol and now on diltiazem as well (4) Pulmonary hypertension: Code(s): I27.20 - Pulmonary hypertension, unspecified Plan: As above (5) Hospital discharge follow-up: Code(s): Z09 - Encounter for follow-up examination after completed treatment for conditions other than malignant neoplasm Plan: As above. Discharge summaries from 12/03/2023 and 12/18/2023 reviewed Plan Time spent on chart review, documentation, interview and assessment Medications: Refilled bumetanide 1 mg PO BID 60 tabs 5RF Coding Level of Care Code Est Pt Level 4 (41359) Diagnoses (HFpEF) heart failure with preserved ejection fraction I50.30 Atrial fibrillation I48.91 SVT (supraventricular tachycardia) I47.1 Pulmonary hypertension I27.20 Hospital discharge follow-up Z09 Time Spent (min) 30
== END 2024-02-02 10:36 | disposition home or self-care (01) ==
PROVIDERS: PCP Internal Medicine; Visit Provider Nurse Practitioner Family
DX: I50.30 Unspecified diastolic (congestive) heart failure (principal); I48.91 Unspecified atrial fibrillation; I47.10 Supraventricular tachycardia, unspecified; I27.20 Pulmonary hypertension, unspecified; Z09 Encounter for follow-up examination after completed treatment for conditions other than malignant neoplasm
CPT/HCPCS: 99214

== ENCOUNTER → 2024-02-02 09:57 | Outpatient (BNVA) | payer OTHER, MEDICAID, SELFPAY | PROVIDERS: PCP Internal Medicine; Visit Provider Nurse Practitioner Family | DX: Z09 Encounter for follow-up examination after completed treatment for conditions other than malignant neoplasm (principal); I50.30 Unspecified diastolic (congestive) heart failure; I48.91 Unspecified atrial fibrillation; I47.10 Supraventricular tachycardia, unspecified; I27.20 Pulmonary hypertension, unspecified; Z99.81 Dependence on supplemental oxygen | CPT/HCPCS: 99212 ==

== ENCOUNTER → 2024-02-06 23:59 | Outpatient (BNV) | payer OTHER, SELFPAY ==
--- NOTE | 2024-02-16 11:46 | A.OFFVIS_ITS ---
Intake Intake Visit Reasons: Remote CardioMEMS Check- [facility] Allergies No Known Allergies Allergy (Unknown, Verified 02/02/24 10:08) NOT APPLICABLE PFSH Medical History Pulmonary hypertension Chronic respiratory failure IPF (idiopathic pulmonary fibrosis) CHF (congestive heart failure) (HFpEF) heart failure with preserved ejection fraction ILD (interstitial lung disease) COPD (chronic obstructive pulmonary disease) Acute exacerbation of CHF (congestive heart failure) SVT (supraventricular tachycardia) CHF exacerbation Chronic anticoagulation Atrial fibrillation Chronic hypoxemic respiratory failure Hypertension Rheumatoid arthritis Lymphadenopathy COPD exacerbation Surgical History Hx of colonoscopy Social History Household Members: Significant Other Housing: Apartment Do you presently have visiting nurse or other home services: Yes Alcohol intake: never Patient Tobacco Use Status: Former Tobacco user Quit Date: 23 years ago Tobacco use type: Cigarette Years Smoked: 40 e-Cigarette/Vaping Use: Former Use Advance Directives Date on File: 06/27/23 service: No Current occupational status: retired Office Procedures Cardiac Device Check Cardiac Device Check Details: Monitoring period dates: 01/07/24 - 02/06/24 Optimal PA pressure range:ADDY goal 45mmhg Procedure code: 13380 BACKGROUND: Tommy is implanted with the CardioMEMS PA Sensor.? I use this technology to monitor PA pressures on a weekly basis to ensure patients are within their optimal range to prevent decompensation.? SUMMARY:? I utilized the remote monitoring platform ([employer]) to set optimal targets for pulmonary artery pressure thresholds as part of acute and chronic management of patient?s heart failure. During the period indicated above, I monitored the patient?s pulmonary artery pressures weekly via trend analysis and notification reports which provide alerts when patient?s PA pressures were outside of range to prompt immediate action in medication changes and communications.? The weekly reports are archived in the [employer] system which serve as a parallel record to document weekly PA pressures, medication changes, and clinical notes. I have reviewed readings on 01/09, 01/12, 01/17, 01/23, 01/30, 02/04. His ADDY readings have ranged between 47- 52mmhg. His breathing has been stable. 60547 - Remote monitoring of wireless pulmonary artery pressure sensor Procedure code (CPT) selection complete Assessment & Plan Assessment & Plan (1) Presence of CardioMEMS HF system: Code(s): Z95.818 - Presence of other cardiac implants and grafts Plan: monthly report Coding Level of Care Code Procedure Only Diagnoses Presence of CardioMEMS HF system Z95.818 CPT Codes Cardiac Device Check - Cardiac Device 17: 10536 - Remote monitoring of wireless pulmonary artery pressure sensor ([id number])
== END ==
PROVIDERS: PCP Internal Medicine; Visit Provider Nurse Practitioner Family
DX: Z95.818 Presence of other cardiac implants and grafts (principal)
CPT/HCPCS: 93264

== ENCOUNTER 2024-02-17 10:30 | Outpatient (AMB) | payer OTHER, SELFPAY ==
--- NOTE | 2024-02-17 10:33 | MHC.OFFVIS ---
Intake Vital Signs 02/17/24 10:34 Height 5 ft 11 in Weight 179 lb 10.828 oz BMI 25.1 BP 140/48 H Blood Pressure Location Lt brachial Position Sitting Pulse 69 Pulse Source Pulse Oximeter Pulse Oximetry (%) 80 L Oxygen Delivery Method Nasal Cannula Oxygen Flow Rate 4 Intake Visit Reasons: COPD Allergies No Known Allergies Allergy (Unknown, Verified 02/17/24 10:36) NOT APPLICABLE HPI HPI Comments History of Present Illness Details The patient is 78-year-old gentleman with a known history of emphysema, interstitial lung disease along with severe pulmonary hypertension on hot oxygen requirements. He has been followed closely at [facility]. The patient was evaluated and placed on prednisone, initially starting at 10 mg and now 7.5 mg in part to treat the interstitial lung disease likely related to the underlying connective tissue disease. Recently he was admitted to the hospital worsening shortness of breath. He was treated appropriately. He did have a CT scan of the chest that I personally reviewed. He does have moderate to severe emphysema and also bilateral interstitial lung disease. No significant change when compared to 2020 which is reassuring that is not significantly progressive. However, patient also had an echocardiogram demonstrating very severe elevations in his pulmonary pressures with a very dilated RV concerning for potentially even higher pulmonary arterial pressures. During the visit we did go for brief walking oximetry in the patient did desaturate in the pulse oxygen that he came in with and at rest he did need 4 L continuous oxygen. Explained to him that the pulse does not work for him. He needs to be on continues oxygen and he is agreeable to this and will make arrangements with his [employer] company. In addition that with walking on 6 L he barely was able to keep a 88%. Therefore, I will request an Oxymizer pendant from his [employer] company in order to provide him enough oxygen. I do believe that his pulmonary hypertension is out of proportion to those pulmonary disease that he has. In his EF and left ventricular anatomy appears to be normal. Therefore, I do believe that considering a basal dilator to treat severe pulmonary hypertension that is out of proportion to his underlying pulmonary disease would be reasonable. The patient does have connective tissue disease which can predispose to group 1 pulmonary hypertension. 02/17/2024 the patient is here for a pulmonary follow-up visit. He has doing a little better. His oxygen requirements have decreased a little bit. No longer requires an Oxymizer pendant. Although the conserving device is not sufficient. He did come in with a pulse ox in the low 80s on his 3-4 L pulse. Therefore the patient needs to be on continues oxygen. We did provide him an operative tank poor continues oxygen at this time. He needs to use 2 L at rest and 3 L with activity. His degree of respiratory failure is primarily due to his pulmonary hypertension. He is severe pulmonary hypertension based on his echo with a very dilated RV. The patient was approved to start sildenafil. But, then his insurance changed and the patient was not aware and therefore he was not able to start the medication. He had a very abnormal echocardiogram. Again consistent with WHO group 1. therefore, we will request the patient started on sildenafil again will hopes that we can control his pulmonary hypertension in therefore decrease his significant oxygen requirements. Once the patient is on the vasodilators therapy we can repeat his 6 minute walk test in hopes that he can tolerate a conserving device and have an easier time carrying the oxygen. Also to note, the patient does have significant daytime drowsiness. Will go ahead and request an in-law his Eagle score is elevated 10/21. Will request an in-lab sleep study at this time. [facility] Medical History Pulmonary hypertension Chronic respiratory failure IPF (idiopathic pulmonary fibrosis) CHF (congestive heart failure) (HFpEF) heart failure with preserved ejection fraction ILD (interstitial lung disease) COPD (chronic obstructive pulmonary disease) Acute exacerbation of CHF (congestive heart failure) SVT (supraventricular tachycardia) CHF exacerbation Chronic anticoagulation Atrial fibrillation Chronic hypoxemic respiratory failure Hypertension Rheumatoid arthritis Lymphadenopathy COPD exacerbation Surgical History Hx of colonoscopy Social History Household Members: Significant Other Housing: Apartment Do you presently have visiting nurse or other home services: Yes Alcohol intake: never Patient Tobacco Use Status: Former Tobacco user Quit Date: 23 years ago Tobacco use type: Cigarette Years Smoked: 40 e-Cigarette/Vaping Use: Former Use Advance Directives Date on File: 06/27/23 service: No Current occupational status: retired Review of Systems Const Reports daytime sleepiness, Reports difficulty sleeping, Denies fever(s), Reports headache(s), Reports snoring and Reports stops breathing during sleep Eyes Reports no additional complaints ENT Reports headache(s) and Reports nasal congestion Card Reports dyspnea and Reports dyspnea on exertion Resp Reports dyspnea, Reports dyspnea on exertion, Reports snoring and Denies wheezing GI Reports no additional complaints Musc Reports as per HPI, Reports abnormal gait, Reports myalgias, Reports arthralgias and Reports joint swelling Skin/Breast Denies rash Neuro Reports abnormal gait and Reports headache(s) Nasir/Lymph Denies lymphadenopathy Aller/Immun Denies wheezing Physical Exam Vital Signs: Last Vital Signs Pulse 69 02/17/24 10:34 BP 140/48 H 02/17/24 10:34 Pulse Ox 80 L 02/17/24 10:34 Oxygen Delivery Method Nasal Cannula 02/17/24 10:34 Oxygen Flow Rate 4 02/17/24 10:34 BMI result Body Mass Index 25.1 Last Vital Signs Temp 98 F 11/22/21 18:56 Pulse 97 11/22/21 20:41 Resp 16 11/22/21 19:37 BP 148/67 H 11/22/21 20:41 Pulse Ox 91 L 11/22/21 18:56 BMI result Body Mass Index 27.8 Const General: alert HEENT Head: Yes normocephalic Neck Neck: Yes normal visual inspection, Yes full ROM and Yes no lymphadenopathy Chest Chest palpation & inspection: normal inspection of the chest Resp Effort & Inspection: normal respiratory effort Auscultation: no rhonchi and diminished lung sounds Cardio Rate: regular rate Rhythm: regular rhythm Heart sounds: S1 normal heart sound present and S2 normal heart sound present GI Palpation (GI): Soft to palpation and nontender Auscultation: normal bowel sounds Skin General skin exam: no rashes or lesions noted Extrem General: Yes clubbing and No cyanosis Assessment & Plan Assessment & Plan (1) COPD (chronic obstructive pulmonary disease): Code(s): J44.9 - Chronic obstructive pulmonary disease, unspecified Qualifiers: COPD type: emphysema Emphysema type: centrilobular Qualified Code(s): J43.2 - Centrilobular emphysema (2) Chronic respiratory failure: Code(s): J96.10 - Chronic respiratory failure, unspecified whether with hypoxia or hypercapnia Qualifiers: Respiratory failure complication: hypoxia Qualified Code(s): J96.11 - Chronic respiratory failure with hypoxia (3) Pulmonary hypertension: Comment: WHO group 1 Code(s): I27.20 - Pulmonary hypertension, unspecified (4) ILD (interstitial lung disease): Code(s): J84.9 - Interstitial pulmonary disease, unspecified Plan start PD5 inhibitor for Pulmonary HTN Continue Breo JORGITO as needed Oxygen revision: 2L/min at rest, 3L/min with activity diuresis as tolerated In lab sleep study F/U in 8 weeks Orders: Orders RT PSG in-lab sleep study 02/17/24 Coding Level of Care Code Est Pt Level 4 (45117) Diagnoses Centrilobular emphysema J43.2 COPD type: emphysema Emphysema type: centrilobular Chronic respiratory failure with hypoxia J96.11 Respiratory failure complication: hypoxia Pulmonary hypertension I27.20 ILD (interstitial lung disease) J84.9 Time Spent (min) 18
[2024-02-17 10:34] VITALS: BP 140/48; PULSE 69; O2SAT 80; BMI 25.1
== END 2024-02-17 11:07 | disposition home or self-care (01) ==
PROVIDERS: PCP Internal Medicine; Visit Provider Hospitalist
DX: J43.2 Centrilobular emphysema (principal); J96.11 Chronic respiratory failure with hypoxia; I27.20 Pulmonary hypertension, unspecified; J84.9 Interstitial pulmonary disease, unspecified
CPT/HCPCS: 99214

== ENCOUNTER → 2024-02-17 10:30 | Outpatient (BNVA) | payer OTHER, SELFPAY | PROVIDERS: PCP Internal Medicine; Visit Provider Hospitalist | DX: J96.11 Chronic respiratory failure with hypoxia (principal); J84.9 Interstitial pulmonary disease, unspecified; J43.2 Centrilobular emphysema; I27.20 Pulmonary hypertension, unspecified; Z99.81 Dependence on supplemental oxygen | CPT/HCPCS: 99212 ==

== ENCOUNTER 2024-02-23 10:43 | Outpatient (REF) | payer OTHER, SELFPAY ==
[2024-02-23 11:01] LABS: MANUAL DIFF FLAG NO
[2024-02-23 11:48] LABS: Basophils Absolute Auto 0.1 X10*3/uL (0.0-0.2); Basophils Percent Auto 0.7 % (0-2); Eosinophils Absolute Auto 0.2 X10*3/uL (0.0-0.4); Eosinophils Percent Auto 1.5 % (0-4); Hematocrit 48.7 % (42.0-52.0); Hemoglobin 15.2 g/dl (14.0-18.0); Imm Gran Abs Auto 0.05 X10*3/uL (0.00-0.03); Imm Gran Pct Auto 0.4 % (0.0-0.4); Lymphocytes Absolute Auto 3.3 X10*3/uL (1.2-4.9); Lymphocytes Percent Auto 24.1 % (20-40); Mean Corpuscular HGB Conc 31.2 g/dl (31.0-36.0); Mean Corpuscular Hemoglobin 27.4 pg (27.0-33.0); Mean Corpuscular Volume 87.9 fL (80.0-98.0); Mean Platelet Volume 11.5 fL (9.4-12.4); Monocytes Absolute Auto 1.3 X10*3/uL (0.1-1.2); Monocytes Percent Auto 9.1 % (2-11); Neutrophils Absolute Auto 8.8 x10*3/uL (2.0-8.3); Neutrophils Percent Auto 64.2 % (45-73); Platelet Count 285 X10*3/uL (160-400); Red Blood Count 5.54 X10*6/uL (4.60-5.80); Red Cell Distribution Width 17.2 % (11.0-16.0); White Blood Count 13.8 X10*3/uL (4.8-10.8)
[2024-02-23 12:08] LABS: Albumin Level 4.3 g/dL (3.5-5.0); Anion Gap 16 (12-20); Blood Urea Nitrogen 45 mg/dL (9-16); Calcium 10.1 mg/dL (8.4-10.2); Carbon Dioxide 28 mmol/L (22-29); Chloride 101 mmol/L (96-108); Estimated Glomerular Filt Rate 28; Magnesium 2.3 mg/dL (1.6-2.6); Phosphorus 4.2 mg/dL (2.7-4.5); Potassium 4.4 mmol/L (3.3-5.1); Sodium 141 mmol/L (135-145)
[2024-02-23 12:18] LABS: Parathyroid Hormone Intact 347.5 pg/mL (8.7-77.1)
[2024-02-23 12:31] LABS: Vitamin D 25-OH Total 24.4 ng/mL (>30)
[2024-02-23 12:39] LABS: Appearance Urine Clear; Color Urine Yellow; Glucose Urine UA >=1000 mg/dL (Negative); Leukocyte Esterase Urine Negative (Negative); Nitrite Urine Negative (Negative); PH 5.5 (5.0-9.0); Specific Gravity - Urine 1.015 (1.005-1.025); UMIC TRIGGER UA YES; Urine Blood Negative (Negative); Urine Ketones Negative (Negative); Urine Protein Negative (Neg-Trace)
[2024-02-23 12:47] LABS: Bacteria Urine None Seen (None Seen); Hyaline Casts Urine 0-2 /LPF (0-2); RBC Urine 0-2 /HPF (0-2); Squamous Epithelial Cell Urine 0-2 /HPF (0-2); WBC Urine 0-5 /HPF (0-5)
[2024-02-23 12:58] LABS: Creatinine Urine 85.43 mg/dL; Microalbum/Creatinine Ratio Ur 120.5 ug/mg cr (<30); Total Protein Urine Random 17 mg/dL (<12)
== END 2024-02-23 10:44 | disposition home or self-care (01) ==
LOC: HO.LAB 10:43
PROVIDERS: Visit Provider Internal Medicine Nephrology
DX: I12.9 Hypertensive chronic kidney disease with stage 1 through stage 4 chronic kidney disease, or unspecified chronic kidney disease (principal); E11.22 Type 2 diabetes mellitus with diabetic chronic kidney disease; N18.32 Chronic kidney disease, stage 3b
CPT/HCPCS: 36415; 80051; 81001; 82040; 82043; 82306; 82310; 82565; 82570; 83735; 83970; 84100; 84156; 84520; 85025

== ENCOUNTER → 2024-03-19 23:59 | Outpatient (BNV) | payer OTHER, SELFPAY ==
--- NOTE | 2024-03-30 16:51 | MHC.OFFVIS ---
Intake Visit Reasons: Remote Cardiomems- [facility] Allergies No Known Allergies Allergy (Unknown, Verified 02/17/24 10:36) NOT APPLICABLE PFSH Medical History Pulmonary hypertension Chronic respiratory failure IPF (idiopathic pulmonary fibrosis) CHF (congestive heart failure) (HFpEF) heart failure with preserved ejection fraction ILD (interstitial lung disease) COPD (chronic obstructive pulmonary disease) Acute exacerbation of CHF (congestive heart failure) SVT (supraventricular tachycardia) CHF exacerbation Chronic anticoagulation Atrial fibrillation Chronic hypoxemic respiratory failure Hypertension Rheumatoid arthritis Lymphadenopathy COPD exacerbation Surgical History Hx of colonoscopy Social History Household Members: Significant Other Housing: Apartment Do you presently have visiting nurse or other home services: Yes Alcohol intake: never Patient Tobacco Use Status: Former Tobacco user Quit Date: 23 years ago Tobacco use type: Cigarette Years Smoked: 40 e-Cigarette/Vaping Use: Former Use Advance Directives Date on File: 06/27/23 service: No Current occupational status: retired Office Procedures Cardiac Device Check Cardiac Device Check Details: Monitoring period dates: 02/07/24 - 03/10/24 Optimal PA pressure range:ADDY goal 45mmhg Procedure code: 51245 BACKGROUND: Tommy is implanted with the CardioMEMS PA Sensor.? I use this technology to monitor PA pressures on a weekly basis to ensure patients are within their optimal range to prevent decompensation.? SUMMARY:? I utilized the remote monitoring platform ([employer]) to set optimal targets for pulmonary artery pressure thresholds as part of acute and chronic management of patient?s heart failure. During the period indicated above, I monitored the patient?s pulmonary artery pressures weekly via trend analysis and notification reports which provide alerts when patient?s PA pressures were outside of range to prompt immediate action in medication changes and communications.? The weekly reports are archived in the [employer] system which serve as a parallel record to document weekly PA pressures, medication changes, and clinical notes. I have reviewed readings on 02/07, 02/14, 02/20, 02/26, 03/05, 03/09. His ADDY has ranged between 42 - 53 mmg. [place]. 65107 - Remote monitoring of wireless pulmonary artery pressure sensor Procedure code (CPT) selection complete Assessment & Plan Assessment & Plan (1) Presence of CardioMEMS HF system: Code(s): Z95.818 - Presence of other cardiac implants and grafts Category: Medical Plan: monthly report Coding Level of Care Code Procedure Only Diagnoses Presence of CardioMEMS HF system Z95.818 CPT Codes Cardiac Device Check - Cardiac Device 17: 15234 - Remote monitoring of wireless pulmonary artery pressure sensor ([id number])
== END ==
PROVIDERS: PCP Internal Medicine; Visit Provider Nurse Practitioner Family
DX: I50.9 Heart failure, unspecified (principal); Z95.818 Presence of other cardiac implants and grafts
CPT/HCPCS: 93264

== ENCOUNTER → 2024-04-11 23:59 | Outpatient (BNV) | payer OTHER, SELFPAY ==
--- NOTE | 2024-04-20 12:10 | MHC.OFFVIS ---
Intake Visit Reasons: Remote [facility]- [facility] Allergies No Known Allergies Allergy (Unknown, Verified 04/15/24 05:40) NOT APPLICABLE PFSH Medical History Pulmonary hypertension Chronic respiratory failure IPF (idiopathic pulmonary fibrosis) CHF (congestive heart failure) (HFpEF) heart failure with preserved ejection fraction ILD (interstitial lung disease) COPD (chronic obstructive pulmonary disease) Acute exacerbation of CHF (congestive heart failure) SVT (supraventricular tachycardia) CHF exacerbation Chronic anticoagulation Atrial fibrillation Chronic hypoxemic respiratory failure Hypertension Rheumatoid arthritis Lymphadenopathy COPD exacerbation Surgical History Hx of colonoscopy Social History Household Members: Spouse Housing: Apartment Do you presently have visiting nurse or other home services: No Alcohol intake: never Comment: patient rings appropriately Patient Tobacco Use Status: Former Tobacco user Quit Date: 23 years ago Tobacco use type: Cigarette Years Smoked: 40 e-Cigarette/Vaping Use: Former Use Advance Directives Date on File: 06/27/23 service: No Current occupational status: retired Office Procedures Cardiac Device Check Cardiac Device Check Details: Monitoring period dates: 03/11/24 -04/10/24 Optimal PA pressure range:ADDY goal 45mmhg Procedure code: 92279 BACKGROUND: Tommy is implanted with the CardioMEMS PA Sensor.? I use this technology to monitor PA pressures on a weekly basis to ensure patients are within their optimal range to prevent decompensation.? SUMMARY:? I utilized the remote monitoring platform ([employer]) to set optimal targets for pulmonary artery pressure thresholds as part of acute and chronic management of patient?s heart failure. During the period indicated above, I monitored the patient?s pulmonary artery pressures weekly via trend analysis and notification reports which provide alerts when patient?s PA pressures were outside of range to prompt immediate action in medication changes and communications.? The weekly reports are archived in the [employer] system which serve as a parallel record to document weekly PA pressures, medication changes, and clinical notes. I have reviewed readings on 03/14, 03/21, 03/28, 04/03, 04/10. His ADDY has ranged between 41-50mmhg. stable. 83536 - Remote monitoring of wireless pulmonary artery pressure sensor Procedure code (CPT) selection complete Assessment & Plan Assessment & Plan (1) Presence of CardioMEMS HF system: Code(s): Z95.818 - Presence of other cardiac implants and grafts Category: Medical Plan: monthly report Medications: On Hold prednisone Hold Comment: Resume on 04/21/24. 7.5 mg (3 x 2.5 mg) PO DAILY 30 days 90 tabs 2RF Coding Level of Care Code Procedure Only Diagnoses Presence of CardioMEMS HF system Z95.818 CPT Codes Cardiac Device Check - Cardiac Device 17: 14312 - Remote monitoring of wireless pulmonary artery pressure sensor ([id number])
== END ==
PROVIDERS: PCP Internal Medicine; Visit Provider Nurse Practitioner Family
DX: Z45.09 Encounter for adjustment and management of other cardiac device (principal)
CPT/HCPCS: 93264

== ENCOUNTER 2024-04-15 05:13 | Inpatient (IN) | payer OTHER, SELFPAY ==
[2024-04-15] VITALS (16 sets, daily range): BP systolic 108–135; BP diastolic 54–70; PULSE 72–104; RESP 15–22; TEMP 36.5–36.8; O2SAT 82–94; BMI 24.5
--- NOTE | 2024-04-15 | ECG_ITS ---
Test Reason : SOB Blood Pressure : / mmHG Vent. Rate : 103 BPM Atrial Rate : 103 BPM P-R Int : 152 ms QRS Dur : 130 ms QT Int : 386 ms P-R-T Axes : 075 125 020 degrees QTc Int : 505 ms Sinus tachycardia with frequent , and consecutive Premature ventricular complexes and Fusion complexes Right bundle branch block Abnormal ECG When compared with ECG of 17-DEC-2023 09:06, Previous ECG has undetermined rhythm, needs review ST now depressed in Anterior leads T wave inversion now evident in Anterior leads Referred By: Generic ED Physician Electronically Signed By:ADAMS CAMEJO MD
--- NOTE | ~2024-04-15 | XR_ITS ---
EXAMINATION: XR CHEST CLINICAL INFORMATION: Dyspnea. COMPARISON: 12/14/2023 TECHNIQUE: Frontal view of the chest was obtained. FINDINGS: The cardiomediastinal silhouette is stable. There is diffuse emphysematous change. There is bilateral mid to lower lung field increased markings and faint lung opacities which has a similar appearance compared to previous. There is no new consolidation or evidence for significant pleural effusion. The bony structures and soft tissues are unremarkable. XR/XR chest 1V IMPRESSION: Emphysema/COPD. No significant change in bilateral mid to lower lung field increased markings and faint lung opacities compared to 12/14/2023.
--- NOTE | 2024-04-15 05:49 | ED_ITS ---
HPI - SOB/Dyspnea General Chief Complaint: Dyspnea Stated Complaint: SOB Time Seen by Provider: 04/15/24 05:31 History of Present Illness HPI Narrative: Patient is a 78-year-old male with a history of congestive heart failure with preserved EF. History of pulmonary fibrosis, COPD, rheumatoid arthritis baseline on 4 L of oxygen at home patient was using an exceptionally long tubing. On EMS arrival patient had a decreased O2 sat. Feels weak. Patient was sent to the ED. while in the emergency department patient was on 4 L of oxygen and symptoms seems to have already improved. Patient denies any fever chills. No coughing or congestion. No chest pain or diaphoresis. No leg swelling that is worse. Not related to position. Patient is from home. EMS on arrival noted patient was about 85% on 4 L. Related Data Home Medications ?Medication ?Instructions ?Recorded ?Confirmed adalimumab 40 mg/0.4 mL 40 mg subcut Q2W 11/20/21 02/02/24 subcutaneous pen kit (Humira(CF) Pen) folic acid 400 mcg tablet 400 mcg PO DAILY 11/20/21 02/02/24 rosuvastatin 10 mg tablet 1 tab PO BEDTIME 11/20/21 02/02/24 timolol maleate 0.5 % eye drops 1 drp ophthalmic (eye) DAILY 11/20/21 02/02/24 tramadol 50 mg tablet 1 tab PO BID PRN Pain, Moderate 11/20/21 02/02/24 aspirin 81 mg tablet,delayed 81 mg PO DAILY 04/18/23 02/02/24 release fluticasone furoate 200 1 puff inhalation DAILY 04/18/23 02/02/24 mcg-vilanterol 25 mcg/dose inhalation powder (Breo Ellipta) nitroglycerin 0.4 mg sublingual 0.4 mg sublingual NEEDED PRN 04/18/23 02/02/24 tablet Chest Pain omeprazole 40 mg capsule,delayed 40 mg PO DAILY@0630 06/23/23 02/02/24 release empagliflozin 25 mg tablet 25 mg PO DAILY 11/30/23 02/02/24 (Jardiance) prednisone 5 mg tablet 7.5 mg PO DAILY 11/30/23 02/02/24 warfarin 2.5 mg tablet (Jantoven) 5 mg PO DAILY@1800 11/30/23 02/02/24 albuterol sulfate 90 mcg/actuation 2 puff inhalation Q4H PRN wheezing 12/14/23 02/02/24 aerosol inhaler (Ventolin HFA) Oxygen Home Use 12/23/23 02/02/24 nebulizers 12/23/23 02/02/24 Previous Rx's ?Medication ?Instructions ?Recorded insulin glargine 100 unit/mL (3 20 unit (0.2 mL) subcut QPM #15 mL 11/07/23 mL) subcutaneous pen (Lantus Solostar U-100 Insulin) sacubitril 49 mg-valsartan 51 mg 1 tab PO BID #30 tabs 12/02/23 tablet (Entresto) diltiazem HCl 240 mg 240 mg PO DAILY #30 caps 12/18/23 capsule,extended release 24 hr metoprolol succinate 50 mg 50 mg PO DAILY #30 tabs 12/18/23 tablet,extended release 24 hr albuterol sulfate 2.5 mg/3 mL 2.5 mg (3 mL) inhalation Q4H PRN 01/25/24 (0.083 %) solution for nebulization wheezing #180 mL albuterol sulfate 2.5 mg/3 mL 2.5 mg (3 mL) inhalation Q6H PRN 01/26/24 (0.083 %) solution for nebulization shortness of breath or wheezing 30 days #180 mL bumetanide 1 mg tablet 1 mg PO BID #60 tabs 02/02/24 sildenafil (pulm.hypertension) 20 20 mg PO TID 30 days #90 tabs 03/23/24 mg tablet (Revatio) prednisone 2.5 mg tablet 7.5 mg (3 x 2.5 mg) PO DAILY 30 04/06/24 days #90 tabs Allergies Allergy/AdvReac Type Severity Reaction Status Date / Time No Known Allergies Allergy Unknown NOT Verified 04/15/24 05:40 APPLICABLE Review of Systems 2 Review of Systems: No fever no chills no cough no congestion no upper respiratory symptoms positive shortness of breath Yes all other systems are reviewed and are negative PMFSH Past Medical History Attestation statement: The following information was validated with the patient. Medical History Pulmonary hypertension Chronic respiratory failure IPF (idiopathic pulmonary fibrosis) CHF (congestive heart failure) (HFpEF) heart failure with preserved ejection fraction ILD (interstitial lung disease) COPD (chronic obstructive pulmonary disease) Acute exacerbation of CHF (congestive heart failure) SVT (supraventricular tachycardia) CHF exacerbation Chronic anticoagulation Atrial fibrillation Chronic hypoxemic respiratory failure Hypertension Rheumatoid arthritis Lymphadenopathy COPD exacerbation Surgical History Hx of colonoscopy Social History Social History Household Members: Significant Other Housing: Apartment Do you presently have visiting nurse or other home services: Yes Alcohol intake: never Patient Tobacco Use Status: Former Tobacco user Quit Date: 23 years ago Tobacco use type: Cigarette Years Smoked: 40 Smoked in Last 30 Days: No e-Cigarette/Vaping Use: Former Use Use of substances other than those prescribed or required for medical reasons: No Advance Directives: Yes Advance Directives on File: Yes Advance Directives Date on File: 06/27/23 Do you have a plan to hurt others: No Plan service: No Current occupational status: retired Physical Exam 2 Vital Signs: Vital Signs: Last Vital Signs Temp 98.2 F 04/15/24 05:37 Pulse 104 H 04/15/24 05:37 Resp 20 04/15/24 05:37 BP 126/66 04/15/24 05:37 Pulse Ox 90 L 04/15/24 05:37 O2 Del Method Nasal Cannula 04/15/24 05:37 Oxygen Flow Rate 6 04/15/24 05:37 BMI result Body Mass Index 24.5 Appearance: Alert. Oriented X3. No acute distress. Eyes: Pupils equal, round and reactive to light. ENT: Pharynx normal. Neck: Normal inspection. Neck supple. No lymph nodes noted. No crepitus CVS: Normal heart rate and rhythm. Pulses normal. Normal S1 and S2 Respiratory: No respiratory distress. Diminished breath sounds bilaterally Abdomen: Soft and nontender. No rigidity. No distention. good BS x4 Skin: Skin warm and dry. Normal skin color. Normal skin turgor. Extremities: No lower extremity edema. Neurovascular intact to all extremities. No Lacerations. No Rash Neuro: Oriented X 3. No motor deficit. No sensory deficit. Moving all extermities. No slurred speech Medications Administered Discontinued Medications Generic Name Dose Route Start Last Admin Trade Name Freq PRN Reason Stop Dose Admin Albuterol Sulfate 2.5 mg 04/15/24 05:44 04/15/24 06:03 Albuterol Sulfate (0.083%) 2.5 Mg/3 Ml Vial.Neb INHALE 04/15/24 05:45 2.5 mg ONCE ONE Administration Albuterol/Ipratropium 3 ml 04/15/24 05:44 04/15/24 06:03 Albuterol/Iprat 2.5/0.5mg 3 Ml Ampul.Neb INHALE 04/15/24 05:45 3 ml ONCE ONE Administration Methylprednisolone Sodium Succinate 125 mg 04/15/24 05:44 04/15/24 06:02 Methylprednisolone Sod Succ 125 Mg/2 Ml Vial IVPUSH 04/15/24 05:45 125 mg ONCE ONE Administration Medical Decision Making Medical Decision Making [facility] Narrative: Positive generalized malaise shortness of breath. Patient is satting approximately 90% on 4 L. an ABG was done. Additional labs ordered. Chest x- ray ordered. Patient's chest x-ray showed no new focal infiltrate. ABG was done. It showed a normal pH. No CO2 retention. Patient's PaO2 was approximately 60. Suggestive of a O2 sat of about 90%. This is approximately baseline. Patient has diminished breath sounds bilaterally this is also baseline. Patient's ABG showed a sinus rhythm with frequent PVCs heart rate is about 100 TX QTC normal positive right bundle branch block no acute ST segment elevation. No significant change from previous. Troponin is normal. White count is 12. Creatinine is 1.97 this is also baseline. BNP is 173 given patient's age no evidence for congestive heart failure. Patient wants to go home Differential Diagnosis Differential Diagnoses: The differential diagnosis associated with the presentation includes COPD, anemia, pneumonia, congestive heart failure Admission/Observation Consideration of admission/observation: Escalation of care including admission/observation considered Lab Data [facility] Lab Attestation statement: I reviewed the patient's lab results. 04/15/24 06:08 04/15/24 06:08 Labs: Lab Results 04/15/24 04/15/24 Range/Units 06:08 06:16 WBC 12.7 H (4.8-10.8) X10*3/uL RBC 5.57 (4.60-5.80) X10*6/uL Hgb 14.7 (14.0-18.0) g/dl Hct 46.7 (42.0-52.0) % MCV 83.8 (80.0-98.0) fL MCH 26.4 L (27.0-33.0) pg MCHC 31.5 (31.0-36.0) g/dl RDW 16.5 H (11.0-16.0) % Plt Count 231 (160-400) X10*3/uL MPV 10.2 (9.4-12.4) fL Immature Gran % (Auto) 0.5 H (0.0-0.4) % Neut % (Auto) 63.5 (45-73) % Lymph % (Auto) 24.3 (20-40) % Woodruff % (Auto) 9.9 (2-11) % Eos % (Auto) 1.2 (0-4) % Baso % (Auto) 0.6 (0-2) % Lymph # (Auto) 3.1 (1.2-4.9) X10*3/uL Woodruff # (Auto) 1.3 H (0.1-1.2) X10*3/uL Eos # (Auto) 0.2 (0.0-0.4) X10*3/uL Baso # (Auto) 0.1 (0.0-0.2) X10*3/uL Abs Immat Gran (auto) 0.06 H (0.00-0.03) X10*3/uL Absolute Neuts (auto) 8.1 (2.0-8.3) x10*3/uL Absolute Nucleated RBC 0.000 (0.0-0.012) X10*3/uL Nucleated RBC % (auto) 0.0 (0.0-0.2) /100WBC O2 Saturation 87.0 % ABG pH at Pt Temp 7.47 H (7.35-7.45) ABG pCO2 at Pt Temp 37 (32-45) mmHg ABG pO2 at Pt Temp 60 L (83-108) mmHg ABG HCO3 28 H (22-26) mmol/L ABG Base Excess (Actual) 4.4 mmol/L Sodium 139 (135-145) mmol/L Potassium 3.6 (3.3-5.1) mmol/L Chloride 102 (96-108) mmol/L Carbon Dioxide 23 (22-29) mmol/L Anion Gap 18 (12-20) BUN 35 H (9-16) mg/dL Creatinine 1.97 H (0.5-1.4) mg/dL Estim Creat Clear Calc 32.3 Estimated GFR 33 Random Glucose 114 (60-115) mg/dL Lactic Acid 2.0 (0.5-2.0) mmol/L Calcium 10.4 H (8.4-10.2) mg/dL Total Bilirubin 0.4 (0.0-1.0) mg/dL Direct Bilirubin 0.2 (0.0-0.5) mg/dL AST 13 (5-37) U/L ALT 11 (0-40) U/L Alkaline Phosphatase 51 (39-117) U/L Troponin I High Sens 13.4 D (<3.5-35.0) ng/L B-Natriuretic Peptide 173 H (<100) pg/mL Total Protein 8.4 H (6.5-8.0) g/dL Albumin 4.1 (3.5-5.0) g/dL ABG Data Attestation ABG: I personally reviewed and interpreted this ABG as follows: Interpretation: PH is 7.47 pCO2 of 37 PO2 of 60. This gas is suggestive of very mild respiratory alkalosis and hypoxia. Independent Interpretation I performed an independent interpretation of an: EKG (Sinus heart rate is 100 positive right bundle-branch block no acute ST segment elevation) and Plain X- Ray (Nothing acute) Radiology Impression Discussion of test interpretation with radiology: I have reviewed the radiologist's reading. External Record Review External record reviewed: Inpatient record Discharge Plan Discharge Clinical Impression: COPD exacerbation Patient Disposition: Home, Self-Care Instructions: COPD (Chronic Obstructive Pulmonary Disease) (DC) Prescriptions: No Action albuterol sulfate 2.5 mg /3 mL (0.083 %) solution for nebulization 2.5 mg inhalation Q4H PRN (Reason: wheezing) Qty: 180 0RF albuterol sulfate 2.5 mg /3 mL (0.083 %) solution for nebulization 2.5 mg inhalation Q6H PRN (Reason: shortness of breath or wheezing) 30 Days Qty: 180 11RF Rx Instructions: J44.1 COPD with acute exacerbation. sildenafil (pulm.hypertension) [Revatio] 20 mg tablet 20 mg PO TID 30 Days Qty: 90 3RF Rx Instructions: administer doses at least 4-6 hours apart prednisone 2.5 mg tablet 7.5 mg PO DAILY 30 Days Qty: 90 2RF folic acid 400 mcg tablet 400 mcg PO DAILY tramadol 50 mg tablet 1 tab PO BID PRN (Reason: Pain, Moderate) timolol maleate 0.5 % drops 1 drp ophthalmic (eye) DAILY rosuvastatin 10 mg tablet 1 tab PO BEDTIME Humira(CF) Pen 40 mg/0.4 mL pen injector kit 40 mg subcut Q2W Rx Instructions: WED aspirin 81 mg Tablet,Delayed Release (Dr/Ec) 81 mg PO DAILY nitroglycerin 0.4 mg tablet, sublingual 0.4 mg sublingual NEEDED PRN (Reason: Chest Pain) fluticasone furoate-vilanterol [Breo Ellipta] 200-25 mcg/dose blister with device 1 puff inhalation DAILY omeprazole 40 mg capsule,delayed release(DR/EC) 40 mg PO DAILY@0630 insulin glargine [Lantus Solostar U-100 Insulin] 100 unit/mL (3 mL) insulin pen 20 unit subcut QPM Qty: 15 2RF prednisone 5 mg tablet 7.5 mg PO DAILY warfarin [Jantoven] 2.5 mg tablet 5 mg PO DAILY@1800 Jardiance 25 mg tablet 25 mg PO DAILY Entresto 49-51 mg Tablet 1 tab PO BID Qty: 30 1RF Protocol: Hold for SBP< HOLD for SBP < : 90 albuterol sulfate [Ventolin HFA] 90 mcg/actuation HFA aerosol inhaler 2 puff INHALATION Q4H PRN (Reason: wheezing) metoprolol succinate 50 mg Tablet Extended Release 24 Hr 50 mg PO DAILY Qty: 30 1RF Protocol: Hold for SBP/HR < HOLD for SBP < : 90 HOLD for HR < : 60 diltiazem HCl 240 mg Capsule,Extended Release 24hr 240 mg PO DAILY Qty: 30 1RF Protocol: Hold for SBP/HR < HOLD for SBP < : 90 HOLD for HR < : 60 bumetanide 1 mg tablet 1 mg PO BID Qty: 60 5RF (DME) nebulizers Misc See Rx Instructions .Route Rx Instructions: As directed (DME) Oxygen Home Use Kit See Rx Instructions .Route Rx Instructions: As directed Referrals: Physician,Stacy J [Primary Care Provider] - 04/17/24 Print Language: Guatemalan
[2024-04-15] MEDS: methylPREDNISolone Sod Succ 125 MG/2 ML VIAL IVPUSH (06:02)
[2024-04-15] MEDS: Albuterol/Iprat 2.5/0.5MG 3 ML AMPUL.NEB INHALE ×3 (06:03→19:20)
[2024-04-15] MEDS: Albuterol Sulfate (0.083%) 2.5 MG/3 ML VIAL.NEB INHALE (06:03)
[2024-04-15 06:14] LABS: MANUAL DIFF FLAG NO
[2024-04-15 06:15] LABS: Basophils Absolute Auto 0.1 X10*3/uL (0.0-0.2); Basophils Percent Auto 0.6 % (0-2); Eosinophils Absolute Auto 0.2 X10*3/uL (0.0-0.4); Eosinophils Percent Auto 1.2 % (0-4); Hematocrit 46.7 % (42.0-52.0); Hemoglobin 14.7 g/dl (14.0-18.0); Imm Gran Abs Auto 0.06 X10*3/uL (0.00-0.03); Imm Gran Pct Auto 0.5 % (0.0-0.4); Lymphocytes Absolute Auto 3.1 X10*3/uL (1.2-4.9); Lymphocytes Percent Auto 24.3 % (20-40); Mean Corpuscular HGB Conc 31.5 g/dl (31.0-36.0); Mean Corpuscular Hemoglobin 26.4 pg (27.0-33.0); Mean Corpuscular Volume 83.8 fL (80.0-98.0); Mean Platelet Volume 10.2 fL (9.4-12.4); Monocytes Absolute Auto 1.3 X10*3/uL (0.1-1.2); Monocytes Percent Auto 9.9 % (2-11); Neutrophils Absolute Auto 8.1 x10*3/uL (2.0-8.3); Neutrophils Percent Auto 63.5 % (45-73); Platelet Count 231 X10*3/uL (160-400); Red Blood Count 5.57 X10*6/uL (4.60-5.80); Red Cell Distribution Width 16.5 % (11.0-16.0); White Blood Count 12.7 X10*3/uL (4.8-10.8)
[2024-04-15 06:25] LABS: ABG Base Excess 4.4 mmol/L; ABG HCO3 28 mmol/L (22-26); ABG pCO2 37 mmHg (32-45); ABG pH 7.47 (7.35-7.45); ABG pO2 60 mmHg (83-108)
[2024-04-15 06:33] LABS: Alanine Aminotransferase 11 U/L (0-40); Albumin Level 4.1 g/dL (3.5-5.0); Alkaline Phosphatase 51 U/L (39-117); Anion Gap 18 (12-20); Aspartate Amino Transferase 13 U/L (5-37); Bilirubin Direct 0.2 mg/dL (0.0-0.5); Bilirubin Total 0.4 mg/dL (0.0-1.0); Blood Urea Nitrogen 35 mg/dL (9-16); Calcium 10.4 mg/dL (8.4-10.2); Carbon Dioxide 23 mmol/L (22-29); Chloride 102 mmol/L (96-108); Creatinine Clr Calc Pharmacy 32.3; Estimated Glomerular Filt Rate 33; Glucose Random 114 mg/dL (60-115); Potassium 3.6 mmol/L (3.3-5.1); Sodium 139 mmol/L (135-145); Total Protein 8.4 g/dL (6.5-8.0)
[2024-04-15 06:35] LABS: Troponin-I High Sensitivity 13.4 ng/L (<3.5-35.0)
[2024-04-15 06:36] LABS: B Type Natriuretic Peptide 173 pg/mL (<100)
[2024-04-15] MEDS: Furosemide 40 MG/4 ML VIAL IVPUSH (08:27)
[2024-04-15 08:42] LABS: Venous Blood Gas Refer to POC result
[2024-04-15 08:44] LABS: Appearance Urine Clear; Color Urine Yellow; Glucose Urine UA >=1000 mg/dL (Negative); Leukocyte Esterase Urine Negative (Negative); Nitrite Urine Negative (Negative); PH 6.5 (5.0-9.0); Specific Gravity - Urine 1.015 (1.005-1.025); UMIC TRIGGER UACC YES; Urine Blood Negative (Negative); Urine Ketones Negative (Negative); Urine Protein 30 (1+) mg/dL (Neg-Trace)
[2024-04-15 08:45] LABS: VBG Base Excess 5.7 mmol/L; VBG HCO3 30 mmol/L (22-26); VBG pCO2 41 mmHg; VBG pH 7.46 (7.32-7.43); VBG pO2 36 mmHg
[2024-04-15 08:46] LABS: Bacteria Urine None Seen (None Seen); Hyaline Casts Urine 0-2 /LPF (0-2); RBC Urine 0-2 /HPF (0-2); Squamous Epithelial Cell Urine 0-2 /HPF (0-2); WBC Urine 0-5 /HPF (0-5)
[2024-04-15] MEDS: Azithromycin 500 MG in 0.9 % Sodium Chloride 250 ML 125 MG IV (09:20)
--- NOTE | 2024-04-15 10:18 | PC.NURSE ---
Back Charting: This RN took over patient at 0700, pt was suppose to be d/c home, however when this RN went to d/c patient his O2 was 80-83% on his baseline 4L NC. MD made aware, d/c canceled, repeat labs drawn, Lasix given, Antibiotic hung per order. Pt continues to range from 83-94%, pt changed over to Oxy mask from NC, titration from 7-10L on Oxy mask. Pt remains to offer no complaints of SOB/CP/coughing
[2024-04-15 10:45] LABS: ABG Refer to POC result
--- NOTE | 2024-04-15 11:23 | PHA.MEDREC ---
Pharmacy Consult ? Medication Reconciliation Pharmacy has completed the medication reconciliation.
--- NOTE | 2024-04-15 11:35 | P.HPHOSP_ITS ---
History of Present Illness Date of Service: 04/15/24 Chief Complaint: Shortness of breath 78-year-old male with past medical history of HFpEF s/p CardioMEMS, Pulmonary HTN/cor Pulmonale, IPF, ashmta/COPD on 4 liters of O2 at baseline, PAF on coumdin, RA on chronic steroid (prednisone 7.5/d), HTN who presents to the emergency department for evaluation of dyspnea that has been ongoing for about 4 hours prior to coming. EMS found to patient to be hypoxic with oxygen saturation of 85 %. His oxygen concentration is on ground from and his bedroom upstairs and he reportedly uses a long tube to reach the bedroom, raising question if he is getting enough O2. CXR show no acute fnding, WBC 12. ABG is reassuring. IV steriod, bronchodilator and Azithro Review of Systems 2 Review of Systems: Gen: no fever Resp: + sob, no cough CV: no chest, no WEBER, no leg edema GI: No n/v, no abd pain Neuro: No confusion Yes all other systems are reviewed and are negative [facility] Medical History Pulmonary hypertension Chronic respiratory failure IPF (idiopathic pulmonary fibrosis) CHF (congestive heart failure) (HFpEF) heart failure with preserved ejection fraction ILD (interstitial lung disease) COPD (chronic obstructive pulmonary disease) Acute exacerbation of CHF (congestive heart failure) SVT (supraventricular tachycardia) CHF exacerbation Chronic anticoagulation Atrial fibrillation Chronic hypoxemic respiratory failure Hypertension Rheumatoid arthritis Lymphadenopathy COPD exacerbation Surgical History Hx of colonoscopy Social History Household Members: Significant Other Housing: Apartment Do you presently have visiting nurse or other home services: Yes Alcohol intake: never Patient Tobacco Use Status: Former Tobacco user Quit Date: 23 years ago Tobacco use type: Cigarette Years Smoked: 40 Smoked in Last 30 Days: No e-Cigarette/Vaping Use: Former Use Use of substances other than those prescribed or required for medical reasons: No Advance Directives: Yes Advance Directives on File: Yes Advance Directives Date on File: 06/27/23 Do you have a plan to hurt others: No Plan service: No Current occupational status: retired Meds Allergies Allergy/AdvReac Type Severity Reaction Status Date / Time No Known Allergies Allergy Unknown NOT Verified 04/15/24 05:40 APPLICABLE Home Medications ?Medication ?Instructions ?Recorded ?Confirmed ?Last Taken ?Type adalimumab 40 mg/0.4 mL 40 mg subcut Q2W 11/20/21 04/15/24 04/10/24 History subcutaneous pen kit (Humira(CF) Pen) folic acid 400 mcg tablet 400 mcg PO DAILY 11/20/21 04/15/24 04/14/24 History rosuvastatin 10 mg tablet 1 tab PO BEDTIME 11/20/21 04/15/24 04/14/24 History timolol maleate 0.5 % eye drops 1 drp ophthalmic (eye) DAILY 11/20/21 04/15/24 04/14/24 History tramadol 50 mg tablet 1 tab PO BID PRN Pain, Moderate 11/20/21 04/15/24 06/23/23 History aspirin 81 mg tablet,delayed 81 mg PO DAILY 04/18/23 04/15/24 04/14/24 History release nitroglycerin 0.4 mg sublingual 0.4 mg sublingual Q5M PRN Chest 04/18/23 04/15/24 Unknown History tablet Pain omeprazole 40 mg capsule,delayed 40 mg PO DAILY@0630 06/23/23 04/15/24 04/14/24 History release albuterol sulfate 90 mcg/actuation 2 puff inhalation Q4H PRN wheezing 12/14/23 04/15/24 Unknown History aerosol inhaler (Ventolin HFA) Oxygen Home Use 12/23/23 04/15/24 04/14/24 History nebulizers 12/23/23 04/15/24 04/14/24 History calcitriol 0.25 mcg capsule 0.25 mcg PO Q OTHER DAY 04/15/24 04/15/24 04/14/24 History empagliflozin 10 mg tablet 10 mg PO DAILY 04/15/24 04/15/24 04/14/24 History (Jardiance) furosemide 40 mg tablet 40 mg PO DAILY 04/15/24 04/15/24 04/14/24 History insulin glargine 100 unit/mL (3 20 unit subcut BEDTIME 04/15/24 04/15/24 04/14/24 History mL) subcutaneous pen (Lantus Solostar U-100 Insulin) metoprolol tartrate 50 mg tablet 50 mg PO BID 04/15/24 04/15/24 04/14/24 History warfarin 5 mg tablet 5 mg PO DAILY@1800 04/15/24 04/15/24 04/14/24 History Physical Exam 2 Vital Signs and Narrative: Vital Signs: Last Vital Signs Temp 97.7 F 04/15/24 08:00 Pulse 90 04/15/24 09:22 Resp 22 H 04/15/24 09:22 BP 129/54 L 04/15/24 09:22 Pulse Ox 90 L 04/15/24 10:22 O2 Del Method Oxymask 04/15/24 10:22 O2 Flow Rate 7 04/15/24 10:22 Oxygen Flow Rate 6 04/15/24 05:37 BMI result Body Mass Index 24.5 Const: Other: Constitutional: Alert, in no distress, . Mental Status: Oriented to person, place and time. Eyes: Pupils are equal, round and reactive to light. Ear, Nose and Throat: Oropharynx clear, mucous membranes moist. Ears and nose without eformities. Trachea midline. Respiratory: diminished lung sounds, no accessory muscle use, no wheezing Cardiovascular: S1 S2 regular. No murmurs, rubs or gallops. Gastrointestinal: Abdomen soft, non-tender, non-distended. Normal bowel sounds.? Neurologic: Cranial nerves II-XII grossly intact. No focal neurological deficits. Moves all extremities spontaneously.? Skin: No rashes or lesions.? Musculoskeletal: No cyanosis or clubbing. Psychiatric: Normal mood and affect? Results Labs 04/15/24 06:08 04/15/24 06:08 Labs: Imaging Radiologist's Impressions: Impressions Chest X-Ray 04/15/24 05:40 IMPRESSION: Emphysema/COPD. No significant change in bilateral mid to lower lung field increased markings and faint lung opacities compared to 12/14/2023. Assessment and Plan (1) Reactive airway disease: Qualifiers: Asthma complication type: with acute exacerbation Asthma persistence: p ersistent Asthma severity: severe Qualified Code(s): J45.51 - Severe persistent asthma with (acute) exacerbation Status: Acute (2) Hypoxia: Status: Acute Plan 78-year-old male with past medical history of HFpEF s/p CardioMEMS, Pulmonary HTN/cor Pulmonale, IPF, ashmta/COPD on 4 liters of O2 at baseline, PAF, RA on chronic steroid, HTN who is presenting with acute hypoxic respiratory failure likely related to exacerbation of COPD/Asthma and underlying Pulm HTN, IPF, and heart failure Acute on chronic hypoxic respriatory failure d/t copd asthma, IPF and pulmonory hypertention -IV steroid -bronchodilators by Neb -O2 to keep sat 88 to 92 -consider pulmonary eval -empiric Azithromycin. Chronic HFpEF with no exacerbation, now compensated continue Lasix, Entresto, Bumex, hold Lasix, continue troprolol PAF with RVR--> Sinus rhythm -Toprolol XL 50 -Oracardizem 240 mg daily -continue coumdin 2, continue RA--continue steroid, hold prednisone while on IV steroid HTN--continue Metoprolol, entresto and cardizem Diabetes--continue Lantus, SSI, diabetic diet HLD--Lipior CKD, stage 3bCKD--Stabl DVT prophylaxis--Coumadin Requires ongoing inpatient hospital stay for further management of respiratory failure with IV steroid and adjustment of O2 Full code Quality Stroke Does the patient have a stroke diagnosis?: No VTE Prior VTE?: No VTE Risk Level:: Medical - moderate - high VTE Device Contraindication: Treatment Not Indicated VTE Drug Contraindication: N/A - Med Ordered
[2024-04-15 13:20] LABS: Glucose, Whole Blood 217 mg/dL (60-115)
[2024-04-15] MEDS: Aspirin Enteric Coated 81 MG TABLET.DR PO (14:32)
[2024-04-15] MEDS: Metoprolol Tartrate 50 MG TABLET PO ×2 (14:32→21:27)
[2024-04-15] MEDS: methylPREDNISolone Sod Succ 40 MG/ML VIAL IVPUSH ×2 (14:32→21:28)
[2024-04-15] MEDS: Omeprazole 40 MG CAPSULE.DR PO (14:32)
[2024-04-15] MEDS: Bumetanide 1 MG TABLET PO ×2 (14:32→21:27)
[2024-04-15] MEDS: timoloL maleate 0.5 % Oph Sol 5 ML DRBTL 1 DROP EYE-BOTH (14:33)
[2024-04-15] MEDS: Sacubitril/Valsartan 49/51 1 TAB TABLET PO (14:33)
[2024-04-15] MEDS: calcitrioL 0.25 MCG CAPSULE PO (14:33)
[2024-04-15] MEDS: Empagliflozin 10 MG TABLET PO (14:33)
[2024-04-15] MEDS: dilTIAZem HCL CD 240 MG CAP.ER.DEG PO (14:33)
[2024-04-15] MEDS: Sildenafil Citrate 20 MG TABLET PO (14:33)
[2024-04-15] MEDS: 0.9 % Sodium Chloride Flush 3 ML SYRINGE IVFLUSH (14:34)
--- NOTE | 2024-04-15 15:39 | MHC.CM.PN ---
CM MET WITH PT AND WITH [employer] PT LIVES AT HOME AND HAS DAILY SITE LEAD SERVICES PT HAS HOME O2 FROM [facility] HCP ON FILE PCP: RICHARD JOSEPH IMM DELIVERED DCP: HOME [facility]ME [employer] [employer] [facility] VIA PRIVATE TRANSPORT
[2024-04-15 16:45] LABS: Glucose, Whole Blood 262 mg/dL (60-115)
[2024-04-15] MEDS: Warfarin Sodium 5 MG TABLET PO (18:47)
[2024-04-15 20:01] LABS: Glucose, Whole Blood 243 mg/dL (60-115)
[2024-04-15] MEDS: Atorvastatin Calcium 40 MG TABLET PO (21:26)
[2024-04-15] MEDS: Insulin Glargine,Hum.rec.anlog 100 UNIT/ML 10 ML VIAL 20 UNIT SUBCUT (21:27)
--- NOTE | 2024-04-15 23:30 | PC.NURSE ---
assumed care at 1900, pt assessed, spo2 92-93% on 4 liters NC, denies any complaints, using urinal at bedside, medicated per MAR
[2024-04-16] VITALS (13 sets, daily range): BP systolic 102–148; BP diastolic 44–97; PULSE 57–106; RESP 13–21; TEMP 36.3–36.9; O2SAT 88–96; BMI 24.8
[2024-04-16] MEDS: 0.9 % Sodium Chloride Flush 3 ML SYRINGE IVFLUSH ×2 (00:40→23:23)
[2024-04-16] MEDS: methylPREDNISolone Sod Succ 40 MG/ML VIAL IVPUSH ×3 (05:34→21:33)
[2024-04-16] MEDS: Omeprazole 40 MG CAPSULE.DR PO (05:34)
--- NOTE | 2024-04-16 05:47 | PC.NURSE ---
pt assessed 96% on 5 liters, o2 lowered to 4 liters, tolerating well
[2024-04-16 05:57] LABS: INTERNATIONAL NORM RATIO 1.9 (0.9-1.1); Prothrombin Time 23.7 SEC (11.1-13.3)
[2024-04-16] MEDS: Albuterol/Iprat 2.5/0.5MG 3 ML AMPUL.NEB INHALE ×4 (07:30→19:33)
[2024-04-16 07:33] LABS: Glucose, Whole Blood 162 mg/dL (60-115)
[2024-04-16] MEDS: Metoprolol Tartrate 50 MG TABLET PO ×2 (08:08→21:33)
[2024-04-16] MEDS: Bumetanide 1 MG TABLET PO ×2 (08:08→21:32)
[2024-04-16] MEDS: Insulin Lispro 100 UNIT/ML 3 ML VIAL SUBCUT ×4 (08:08→21:33)
[2024-04-16] MEDS: Aspirin Enteric Coated 81 MG TABLET.DR PO (08:08)
[2024-04-16] MEDS: Empagliflozin 10 MG TABLET PO (08:08)
--- NOTE | 2024-04-16 08:10 | PC.NURSE ---
a&ox4. vss and up to date. nsr on the playground monitor. pt currently remains at 4L via NC which is his baseline. no sob/wob noted. respirations even and unlabored. pt sitting upright and promote patent airway. medication administered per provider order. pharmacy called d/t missing medication - will administer when able. pt denies pain. has no acute complaints. pt waiting for bed assignment at this time. plan of care ongoing. call whitt placed within reach.
--- NOTE | 2024-04-16 10:26 | PC.NURSE ---
vss and up to date. nsr on the washing tub operator. pt remains on 4L via NC - resting at 90%. no sob/wob noted. respirations even and unlabored. pt sitting upright to promote patent airway. 350ml clear yellow urine noted in urinal/documented. medication still being delivered from pharmacy - will administer when able. pt continues to wait for bed assignment at this time. plan of care ongoing. call whitt placed within reach.
--- NOTE | 2024-04-16 11:47 | HO.PM.IMPN ---
Subjective Subjective Date of Service: 04/16/24 Interval History: f/u on acute hypoxic resp failure due to copd exacerbation he is feeling better, still with hypoxia Review of Systems Gen: no fever Resp: + sob, no cough CV: no chest, no WEBER, no leg edema GI: No n/v, no abd pain Neuro: No confusion Physical Exam Vital Signs: Vital Signs: Last Vital Signs Temp 97.6 F 04/16/24 10:24 Pulse 85 04/16/24 11:06 Resp 18 04/16/24 11:06 BP 148/73 H 04/16/24 10:24 Pulse Ox 89 L 04/16/24 10:24 O2 Del Method Nasal Cannula 04/16/24 10:24 O2 Flow Rate 4 04/16/24 10:24 Oxygen Flow Rate 6 04/15/24 05:37 BMI result Body Mass Index 24.5 General: AO X 3, no acute distress Resp: diminished breath sounds CVS: S1,S2,RRR GI: +BS, NT, no distention Skin: No rash Neuro: motor grossly intact Psych: appropriate affect Objective Data Active Medications Acetaminophen (Acetaminophen 325 Mg Tablet) 650 mg PO Q6H PRN PRN Reason: Pain, Mild (Pain Scale 1-3) Albuterol Sulfate (Albuterol Sulfate 90 Mcg 8 Gm Inhaler) 2 puff INHALE RQ4H PRN PRN Reason: wheezing Albuterol/Ipratropium (Albuterol/Iprat 2.5/0.5mg 3 Ml Ampul.Neb) 3 ml INHALE RQ4H WHILE AWAKE [facility] Last Admin: 04/16/24 11:06 Dose: 3 ml Documented By: EDUARDA Aspirin (Aspirin Enteric Coated 81 Mg Tablet.Dr) 81 mg PO DAILY [facility] Last Admin: 04/16/24 08:08 Dose: 81 mg Documented By: EDWARD Atorvastatin Calcium (Atorvastatin Calcium 40 Mg Tablet) 40 mg PO BEDTIME [facility] Last Admin: 04/15/24 21:26 Dose: 40 mg Documented By: ALYX Bumetanide (Bumetanide 1 Mg Tablet) 1 mg PO BID [facility]; Protocol Last Admin: 04/16/24 08:08 Dose: 1 mg Documented By: EDWARD Calcitriol (Calcitriol 0.25 Mcg Capsule) 0.25 mcg PO Q48H [facility] Last Admin: 04/15/24 14:33 Dose: 0.25 mcg Documented By: SALONI Diltiazem HCl (Diltiazem Hcl Cd 240 Mg Cap.Er.Deg) 240 mg PO DAILY [facility]; Protocol Last Admin: 04/15/24 14:33 Dose: 240 mg Documented By: SALONI Empagliflozin (Empagliflozin 10 Mg Tablet) 10 mg PO DAILY [facility] Last Admin: 04/16/24 08:08 Dose: 10 mg Documented By: EDWARD Folic Acid (Folic Acid 1 Mg Tablet) 500 mg PO DAILY [facility] Glucose (Glucose Gel 15 Gm Gel..Gram.) 15 gm PO Q15M PRN; Protocol PRN Reason: per Hypoglycemia Standing Ord. Dextrose (D10) 250 mls @ 750 mls/hr IV Q15M PRN; Protocol PRN Reason: per Hypoglycemia Standing Ord. Insulin Glargine (Insulin Glargine,Hum.Rec.Anlog 100 Unit/Ml 10 Ml Vial) 20 unit SUBCUT BEDTIME [facility] Last Admin: 04/15/24 21:27 Dose: 20 unit Documented By: ALYX Insulin Human Lispro (Insulin Lispro 100 Unit/Ml 3 Ml Vial) 0 unit SUBCUT QIDACHS [facility]; Protocol Last Admin: 04/16/24 08:08 Dose: 2 unit Documented By: EDWARD Magnesium Hydroxide (Milk Of Magnesia 30 Ml Oral.Susp) 30 ml PO DAILY PRN PRN Reason: Constipation Melatonin (Melatonin 3 Mg Tablet) 6 mg PO BEDTIME PRN PRN Reason: Insomnia Methylprednisolone Sodium Succinate (Methylprednisolone Sod Succ 40 Mg/Ml Vial) 40 mg IVPUSH Q8H [facility] Last Admin: 04/16/24 05:34 Dose: 40 mg Documented By: ALYX Metoprolol Tartrate (Metoprolol Tartrate 50 Mg Tablet) 50 mg PO BID [facility]; Protocol Last Admin: 04/16/24 08:08 Dose: 50 mg Documented By: EDWARD Nitroglycerin (Nitroglycerin 0.4 Mg Tab.Subl) 0.4 mg SUBLINGUAL Q5M PRN PRN Reason: Chest Pain Omeprazole (Omeprazole 40 Mg Capsule.Dr) 40 mg PO DAILY@0630 [facility] Last Admin: 04/16/24 05:34 Dose: 40 mg Documented By: ALYX Ondansetron HCl (Ondansetron Hcl 4 Mg/2 Ml Vial) 4 mg IVPUSH Q8H PRN PRN Reason: Nausea and Vomiting Sacubitril/Valsartan (Sacubitril/Valsartan 49/51 1 Tab Tablet) 1 tab PO BID [facility]; Protocol Last Admin: 04/15/24 21:31 Dose: Not Given Documented By: ALYX Non-Admin Reason: Med Not Available Sildenafil Citrate (Sildenafil Citrate 20 Mg Tablet) 20 mg PO TID [facility] Last Admin: 04/15/24 21:39 Dose: Not Given Documented By: ALYX Non-Admin Reason: Medication Discontinued Sodium Chloride (0.9 % Sodium Chloride Flush 3 Ml Syringe) 3 ml IVFLUSH QSHIFT [facility] Last Admin: 04/16/24 08:09 Dose: Not Given Documented By: EDWARD Non-Admin Reason: Patient Refused Timolol Maleate (Timolol Maleate 0.5 % Oph [place] 5 Ml Drbtl) 1 drop EYE-BOTH DAILY [facility] Last Admin: 04/15/24 14:33 Dose: 1 drop Documented By: SALONI Tramadol HCl (Tramadol Hcl 50 Mg Tablet) 50 mg PO BID PRN PRN Reason: Pain, Moderate Warfarin Sodium (Warfarin Sodium 5 Mg Tablet) 5 mg PO DAILY@1800 [facility] Last Admin: 04/15/24 18:47 Dose: 5 mg Documented By: SALONI Labs 04/15/24 06:08 04/15/24 06:08 Labs: Laboratory Results - last 24 hr 04/15/24 04/15/24 04/15/24 13:15 16:14 19:57 PT INR POC Glucose 217 H 262 H 243 H 04/16/24 04/16/24 05:41 07:21 PT 23.7 H INR 1.9 H POC Glucose 162 H Microbiology Microbiology Results: Microbiology 04/15/24 06:08 Blood Culture - Preliminary Blood - Venous No growth after 24 hours. 04/15/24 06:08 Blood Culture - Preliminary Blood - Venous No growth after 24 hours. Assessment and Plan (1) Hypoxia: Status: Acute (2) Reactive airway disease: Status: Acute (3) ILD (interstitial lung disease): Status: Acute Plan 78-year-old male with past medical history of HFpEF s/p CardioMEMS, Pulmonary HTN/cor Pulmonale, IPF, ashmta/COPD on 4 liters of O2 at baseline, PAF, RA on chronic steroid, HTN who is presenting with acute hypoxic respiratory failure likely related to exacerbation of COPD/Asthma and underlying Pulm HTN, IPF, and heart failure Acute on chronic hypoxic respriatory failure d/t copd asthma, IPF and pulmonory hypertention -IV steroid for one more day -bronchodilators by Neb -O2 to keep sat 88 to 92 -consider pulmonary eval if not improving -empiric Azithromycin. Chronic HFpEF with no exacerbation, compensated continue Lasix, Entresto, Bumex, hold Lasix, continue troprolol PAF with RVR--> Sinus rhythm -Toprolol XL 50 -Oracardizem 240 mg daily -continue coumdin 2, continue RA--continue steroid, hold prednisone while on IV steroid HTN--continue Metoprolol, entresto and cardizem Diabetes--continue Lantus, SSI, diabetic diet HLD--Lipior CKD, stage 3B, stable DVT prophylaxis--Coumadin need for inpatient: inpatient hospital stay for further management of respiratory failure with IV steroid and adjustment of O2 Full code Quality Stroke Does the patient have a stroke diagnosis?: No VTE Prior VTE?: No VTE Risk Level:: Medical - moderate - high VTE Device Contraindication: Treatment Not Indicated VTE Drug Contraindication: N/A - Med Ordered
[2024-04-16] MEDS: Azithromycin 500 MG TABLET PO (12:39)
[2024-04-16] MEDS: Sacubitril/Valsartan 49/51 1 TAB TABLET PO ×2 (12:39→21:32)
[2024-04-16] MEDS: Sildenafil Citrate 20 MG TABLET PO ×3 (12:40→21:31)
[2024-04-16] MEDS: dilTIAZem HCL CD 240 MG CAP.ER.DEG PO (12:40)
[2024-04-16] MEDS: timoloL maleate 0.5 % Oph Sol 5 ML DRBTL 1 DROP EYE-BOTH (12:40)
[2024-04-16 12:48] LABS: Glucose, Whole Blood 160 mg/dL (60-115)
--- NOTE | 2024-04-16 12:50 | PC.NURSE ---
medication delivered from pharmacy/administered. still missing med from pyxis - pharmacy called again. will administer when able. pt sitting upright eating lunch at this time. plan of care ongoing.
--- NOTE | 2024-04-16 15:30 | PC.NURSE ---
pharmacy called d/t medication not being in pyxis - will administer when able.
[2024-04-16 16:46] LABS: Glucose, Whole Blood 191 mg/dL (60-115)
[2024-04-16] MEDS: Warfarin Sodium 5 MG TABLET PO (17:52)
--- NOTE | 2024-04-16 18:24 | MHC.EDTECH ---
Dinner tray given
[2024-04-16 20:57] LABS: Glucose, Whole Blood 287 mg/dL (60-115)
[2024-04-16] MEDS: Insulin Glargine,Hum.rec.anlog 100 UNIT/ML 10 ML VIAL 20 UNIT SUBCUT (21:33)
[2024-04-16] MEDS: Atorvastatin Calcium 40 MG TABLET PO (21:33)
[2024-04-17 03:30] VITALS: BP 145/64; PULSE 87; RESP 20; TEMP 36.2; O2SAT 90
[2024-04-17] MEDS: methylPREDNISolone Sod Succ 40 MG/ML VIAL IVPUSH (04:49)
[2024-04-17 07:24] VITALS: BP 126/87; PULSE 77; RESP 17; TEMP 36.6; O2SAT 93
[2024-04-17 07:42] LABS: INTERNATIONAL NORM RATIO 2.8 (0.9-1.1); Prothrombin Time 34.4 SEC (11.1-13.3)
[2024-04-17 07:48] LABS: Glucose, Whole Blood 187 mg/dL (60-115)
[2024-04-17] MEDS: Albuterol/Iprat 2.5/0.5MG 3 ML AMPUL.NEB INHALE ×2 (07:53→11:23)
[2024-04-17 07:56] VITALS: PULSE 79; RESP 18; O2SAT 92
[2024-04-17] MEDS: Insulin Lispro 100 UNIT/ML 3 ML VIAL SUBCUT (09:14)
[2024-04-17] MEDS: Metoprolol Tartrate 50 MG TABLET PO (09:14)
[2024-04-17] MEDS: Sacubitril/Valsartan 49/51 1 TAB TABLET PO (09:15)
[2024-04-17] MEDS: dilTIAZem HCL CD 240 MG CAP.ER.DEG PO (09:15)
[2024-04-17] MEDS: Folic Acid 1 MG TABLET 0.5 MG PO (09:15)
[2024-04-17] MEDS: Bumetanide 1 MG TABLET PO (09:15)
[2024-04-17] MEDS: Aspirin Enteric Coated 81 MG TABLET.DR PO (09:15)
[2024-04-17] MEDS: Empagliflozin 10 MG TABLET PO (09:15)
[2024-04-17] MEDS: 0.9 % Sodium Chloride Flush 3 ML SYRINGE IVFLUSH (09:16)
[2024-04-17] MEDS: Omeprazole 40 MG CAPSULE.DR PO (09:16)
[2024-04-17] MEDS: timoloL maleate 0.5 % Oph Sol 5 ML DRBTL 1 DROP EYE-BOTH (09:18)
[2024-04-17] MEDS: Sildenafil Citrate 20 MG TABLET PO (09:28)
--- NOTE | 2024-04-17 09:45 | PM.DS ---
DS: Providers Provider Date of Service: 04/17/24 Date of admission: 04/15/24 12:14 Primary care physician: Unknown Physician DS: Diagnosis Discharge Diagnosis (1) Hypoxia: Status: Acute (2) Reactive airway disease: Status: Acute (3) ILD (interstitial lung disease): Status: Acute DS: Summary Hospital Course Hospital Course: admission hpi Chief Complaint: Shortness of breath 78-year-old male with past medical history of HFpEF s/p CardioMEMS, Pulmonary HTN/cor Pulmonale, IPF, ashmta/COPD on 4 liters of O2 at baseline, PAF on coumdin, RA on chronic steroid (prednisone 7.5/d), HTN who presents to the emergency department for evaluation of dyspnea that has been ongoing for about 4 hours prior to coming. EMS found to patient to be hypoxic with oxygen saturation of 85 %. His oxygen concentration is on ground from and his bedroom upstairs and he reportedly uses a long tube to reach the bedroom, raising question if he is getting enough O2. CXR show no acute fnding, WBC 12. ABG is reassuring. IV steriod, bronchodilator and Azithro hospital course: The patient was admitted and treated for an acute exacerbation of COPD with hypoxia. Management included IV steroids, bronchodilators via nebulizer, and empiric azithromycin. The patient has shown significant improvement and recovery. Hypoxia has markedly improved, returning to the baseline home oxygen level. The patient will be discharged with an additional three days of prednisone at 40 mg daily, followed by a maintenance dose of 7.5 mg daily, and will continue using oxygen as previously prescribed Time Attestation Discharge Coordination Time (in mins): 35 Quality: Safe Use of Opioids Does Pt have an Active Cancer Diagnosis on the Problem List?: No Quality: Stroke Does the patient have a stroke diagnosis?: No Physical Exam Vital Signs: Vital Signs: Last Vital Signs Temp 97.8 F 04/17/24 07:24 Pulse 79 04/17/24 07:56 Resp 18 04/17/24 07:56 BP 126/87 04/17/24 07:24 Pulse Ox 93 04/17/24 07:24 O2 Del Method Nasal Cannula 04/17/24 07:24 O2 Flow Rate 4 04/17/24 07:24 Oxygen Flow Rate 6 04/15/24 05:37 BMI result Body Mass Index 24.8 General: AO X 3, no acute distress Resp: CTA bilateral CVS: S1,S2,RRR GI: +BS, NT, no distention Skin: No rash Neuro: motor grossly intact Psych: appropriate affect DS: Data Data Completed and Pending Completed studies during hospitalization [Text1]: Procedures Assistance with Respiratory Ventilation, Less than 24 Consecutive Hours, Continuous Positive Airway Pressure (12/14/23) Labs on day of discharge: Laboratory Results - last 24 hr 04/16/24 04/16/24 04/16/24 12:38 16:40 20:52 Hold Purple Top PT INR POC Glucose 160 H 191 H 287 H 04/17/24 04/17/24 06:17 07:42 Hold Purple Top SEE NOTE PT 34.4 H D INR 2.8 H POC Glucose 187 H Preliminary micro results at discharge 04/15/24 06:08 Blood Culture - Preliminary Blood - Venous No growth after 48 hours. 04/15/24 06:08 Blood Culture - Preliminary Blood - Venous No growth after 48 hours. Discharge Plan Discharge Anticipated Discharge Date/Time: 04/17/24 09:41 Patient Disposition: Home, Self-Care Discharge Diagnosis: copd exacerbation Referrals: Physician,Unknown J [Primary Care Provider] - 04/17/24 Discharge Medications: New prednisone 20 mg tablet 40 mg PO DAILY Qty: 6 0RF Continued albuterol sulfate 2.5 mg /3 mL (0.083 %) solution for nebulization 2.5 mg inhalation Q6H PRN (Reason: shortness of breath or wheezing) 30 Days Qty: 180 11RF Rx Instructions: J44.1 COPD with acute exacerbation. sildenafil (pulm.hypertension) [Revatio] 20 mg tablet 20 mg PO TID 30 Days Qty: 90 3RF Rx Instructions: administer doses at least 4-6 hours apart folic acid 400 mcg tablet 400 mcg PO DAILY tramadol 50 mg tablet 1 tab PO BID PRN (Reason: Pain, Moderate) timolol maleate 0.5 % drops 1 drp ophthalmic (eye) DAILY rosuvastatin 10 mg tablet 1 tab PO BEDTIME Humira(CF) Pen 40 mg/0.4 mL pen injector kit 40 mg subcut Q2W aspirin 81 mg Tablet,Delayed Release (Dr/Ec) 81 mg PO DAILY nitroglycerin 0.4 mg tablet, sublingual 0.4 mg sublingual Q5M PRN (Reason: Chest Pain) omeprazole 40 mg capsule,delayed release(DR/EC) 40 mg PO DAILY@0630 Entresto 49-51 mg Tablet 1 tab PO BID Qty: 30 1RF Protocol: Hold for SBP< HOLD for SBP < : 90 albuterol sulfate [Ventolin HFA] 90 mcg/actuation HFA aerosol inhaler 2 puff INHALATION Q4H PRN (Reason: wheezing) diltiazem HCl 240 mg Capsule,Extended Release 24hr 240 mg PO DAILY Qty: 30 1RF Protocol: Hold for SBP/HR < HOLD for SBP < : 90 HOLD for HR < : 60 warfarin 5 mg tablet 5 mg PO DAILY@1800 metoprolol tartrate 50 mg tablet 50 mg PO BID calcitriol 0.25 mcg capsule 0.25 mcg PO Q OTHER DAY Jardiance 10 mg tablet 10 mg PO DAILY insulin glargine [Lantus Solostar U-100 Insulin] 100 unit/mL (3 mL) insulin pen 20 unit subcut BEDTIME bumetanide 1 mg tablet 1 mg PO BID Qty: 60 5RF (DME) nebulizers Misc See Rx Instructions .Route Rx Instructions: As directed (DME) Oxygen Home Use Kit See Rx Instructions .Route Rx Instructions: As directed Held prednisone 2.5 mg tablet 7.5 mg PO DAILY 30 Days Qty: 90 2RF Hold Instructions: Resume on 04/21/24. Discontinued furosemide 40 mg tablet 40 mg PO DAILY Discharge Orders: Discharge Order (Routine); Ordered 04/17/24 Ordered By: Deon Cabral Diet: Diabetic diet Activity on Discharge: As tolerated Stand Alone Forms: Patient Portal Discharge page Print Language: Moldovan Care Plan Goals: recovery from copd exacerbation, prevent exacerbationa and rehosopitalization Health Concerns: COPD interstitial lung disease chronic use of oxygen Plan of Treatment: Take Prednisone 40 mg for the next 3 days, then resume your usual dose of 7.5 mg daily Assessment: see above Patient Instructions: COPD (Chronic Obstructive Pulmonary Disease) (DC)
--- NOTE | 2024-04-17 10:23 | MHC.CM.PN ---
Pt is medically cleared for discharge home with resumption of previous services, pt has arranged his own transport home.
[2024-04-17 11:24] VITALS: PULSE 65; RESP 18; O2SAT 89
== END 2024-04-17 11:59 | disposition home or self-care (01) | DRG 202 ==
LOC: HO.ED 08:45 → HO.EDOVER 12:18 → HO.IMC 04-16 19:36
PROVIDERS: Emergency Medicine Emergency Medical Services; Admitting Provider Internal Medicine; Emergency Provider Emergency Medicine; PCP Internal Medicine; Visit Provider Internal Medicine
DX: J45.51 Severe persistent asthma with (acute) exacerbation (principal); J96.21 Acute and chronic respiratory failure with hypoxia; I50.32 Chronic diastolic (congestive) heart failure; J44.1 Chronic obstructive pulmonary disease with (acute) exacerbation; I13.0 Hypertensive heart and chronic kidney disease with heart failure and stage 1 through stage 4 chronic kidney disease, or unspecified chronic kidney disease; N18.32 Chronic kidney disease, stage 3b; E11.22 Type 2 diabetes mellitus with diabetic chronic kidney disease; M06.9 Rheumatoid arthritis, unspecified; J84.112 Idiopathic pulmonary fibrosis; I27.29 Other secondary pulmonary hypertension; I48.0 Paroxysmal atrial fibrillation; Z99.81 Dependence on supplemental oxygen; Z87.891 Personal history of nicotine dependence; Z79.4 Long term (current) use of insulin; Z79.01 Long term (current) use of anticoagulants; Z79.52 Long term (current) use of systemic steroids; Z79.82 Long term (current) use of aspirin; Z79.620 Long term (current) use of immunosuppressive biologic; Z79.899 Other long term (current) drug therapy
CPT/HCPCS: 36415; 71045; 80048; 80076; 81001; 82803; 82947; 83605; 83880; 84484; 85025; 85610; 87040; 93005; 99285; J0456; J1940; J2919

== ENCOUNTER → 2024-04-15 05:24 | Outpatient (BNV) | payer OTHER, SELFPAY | PROVIDERS: Admitting Provider Internal Medicine; Emergency Provider Emergency Medicine; Visit Provider Internal Medicine Cardiovascular Disease | DX: R94.31 Abnormal electrocardiogram [ECG] [EKG] (principal) | CPT/HCPCS: 93010 ==

== ENCOUNTER → 2024-04-15 12:14 | Outpatient (BNV) | payer OTHER, SELFPAY | PROVIDERS: Admitting Provider Internal Medicine; Emergency Provider Emergency Medicine; Visit Provider Internal Medicine | DX: J96.21 Acute and chronic respiratory failure with hypoxia (principal); J45.51 Severe persistent asthma with (acute) exacerbation; J84.9 Interstitial pulmonary disease, unspecified | CPT/HCPCS: 99223; 99232; 99239 ==

== ENCOUNTER 2024-05-11 09:42 | Outpatient (AMB) | payer OTHER, SELFPAY ==
[2024-05-11 10:06] VITALS: BP 122/68; PULSE 68; BMI 25.2
--- NOTE | 2024-05-11 10:06 | A.OFFVIS_ITS ---
Vital Signs 05/11/24 10:06 Height 5 ft 11 in Weight 180 lb 12.465 oz BMI 25.2 BP 122/68 Blood Pressure Location Lt brachial Position Sitting Pulse 68 Pulse Source Pulse Oximeter Intake Visit Reasons: f/up Timber Skidder Required: Yes Timber Skidder Name: JASBIR [id number] Allergies No Known Allergies Allergy (Unknown, Verified 04/15/24 05:40) NOT APPLICABLE Medication List - Last Reconciled 05/14/24 by REBECCA GreerC adalimumab (Humira(CF) Pen) 40 mg subcut Q2W albuterol sulfate 90 mcg/actuation (Ventolin HFA) 2 puffs inhalation Q4H PRN albuterol sulfate 2.5 mg (3 mL) inhalation Q6H PRN 30 days aspirin 81 mg PO DAILY bumetanide 1 mg PO BID calcitriol 0.25 mcg PO Q OTHER DAY diltiazem HCl CD 240 mg See Protocol PO DAILY empagliflozin (Jardiance) 10 mg PO DAILY folic acid 400 mcg PO DAILY insulin glargine (Lantus Solostar U-100 Insulin) 20 units subcut BEDTIME metoprolol tartrate 50 mg PO BID nebulizers As directed nitroglycerin 0.4 mg sublingual Q5M PRN omeprazole 40 mg PO DAILY@0630 Oxygen Home Use As directed prednisone 7.5 mg (3 x 2.5 mg) PO DAILY 30 days rosuvastatin 1 tab PO BEDTIME sacubitril-valsartan 49-51 mg (Entresto) 1 tab See Protocol PO BID sildenafil (pulm.hypertension) (Revatio) 20 mg PO TID 30 days timolol maleate 0.5% 1 drp ophthalmic (eye) DAILY tramadol 1 tab PO BID PRN warfarin 5 mg PO DAILY@1800 HPI HPI f/up: Details: Tommy is a 78-year-old male with past medical history of hypertension, COPD, heart failure with preserved EF, SVT, paroxysmal AFib, CardioMEMS device in place who was recently admitted to [facility] for shortness breath/ COPD exacerbation who now presents for follow-up. Today he reports he has been doing well since his last hospital discharge last month. He wears his oxygen continually. He sleeps with 1 pillow. He denies PND, orthopnea or edema. No chest discomfort at rest or with activity. No heart palpitations, lightheadedness, presyncope, syncope, falls. Taking all meds as directed. is present. Certified hair spring cutter used. [facility] Medical History Reactive airway disease Pulmonary hypertension Chronic respiratory failure IPF (idiopathic pulmonary fibrosis) CHF (congestive heart failure) (HFpEF) heart failure with preserved ejection fraction ILD (interstitial lung disease) COPD (chronic obstructive pulmonary disease) Acute exacerbation of CHF (congestive heart failure) SVT (supraventricular tachycardia) CHF exacerbation Chronic anticoagulation Atrial fibrillation Chronic hypoxemic respiratory failure Hypertension Rheumatoid arthritis Lymphadenopathy COPD exacerbation Surgical History Hx of colonoscopy Social History Household Members: Spouse Housing: Apartment Do you presently have visiting nurse or other home services: No Alcohol intake: never Comment: patient rings appropriately Patient Tobacco Use Status: Former Tobacco user Tobacco use type: Cigarette Years Smoked: 40 e-Cigarette/Vaping Use: Former Use Advance Directives Date on File: 06/27/23 service: No Current occupational status: retired Review of Systems Const All systems reviewed & are unremarkable except as noted in HPI and below Denies weakness ENT Denies dizziness Card Denies chest pain, Denies chest pain with activity, Denies syncope, Denies rapid heart rate, Denies pedal edema, Denies edema, Denies leg edema, Denies lightheadedness, Denies palpitations, Reports dyspnea, Reports dyspnea on exertion and Denies orthopnea Resp Denies cough, Reports dyspnea and Reports dyspnea on exertion GI Denies hematochezia and Denies change in stool character Musc Denies abnormal gait, Denies muscle cramps, Denies muscle weakness, Denies numbness, Denies radiating pain into limb and Denies tingling Neuro Denies abnormal gait, Denies dizziness, Denies syncope, Denies numbness, Denies tingling and Denies weakness Endo Denies palpitations Physical Exam Vital Signs: Last Vital Signs Pulse 68 05/11/24 10:06 BP 122/68 05/11/24 10:06 BMI result Body Mass Index 25.2 Const General: cooperative, healthy appearing, comfortable and no acute distress Orientation/consciousness: patient oriented x3 Neck Neck: Yes normal visual inspection and Yes no JVD Resp Other: diminished lung sounds Effort & Inspection: normal respiratory effort Auscultation: clear to auscultation bilaterally, no rales, no rhonchi and no wheezes Cardio Jugular venous distension: no JVD Rate: regular rate Rhythm: regular rhythm Heart sounds: S1 normal heart sound present, S2 normal heart sound present, no murmurs and no rubs Neuro General: patient oriented x3 Extrem General: Yes normal to inspection, No no pedal edema and No calf tenderness Psych Appearance: grossly normal Mental Status: mental status grossly normal Speech and movement: Normal speech and movement present Assessment & Plan Assessment & Plan (1) (HFpEF) heart failure with preserved ejection fraction: Code(s): I50.30 - Unspecified diastolic (congestive) heart failure Category: Medical Plan: History of heart failure with preserved EF. Known to have at least moderate pulmonary hypertension. CardioMEMS device in place to help with heart failure management. PA pressures to be monitored daily at this time and diuretics can be adjusted as warranted. He did have 2 recent hospital admissions: His last heart failure admission was in November 2023. He is now on Lasix 1 mg b.i.d. he does have known CKD and follows with Nephrology. Last echocardiogram was done on 11/30/2023 showing EF 60-65%, severe increase in the RV size, severe decrease in the RV systolic function, mild TR, severe pulmonary hypertension. Following discharge sildenafil has been added by his physician president for the treatment of pulmonary hypertension. His CardioMEMS readings have been fairly stable with his PA mean running around 45 mmHg which seems to be a baseline goal for him. Today he reports that his breathing has been stable since his last hospital discharge March 2024. He wears his oxygen supplement continually. On examination he does not appear fluid overloaded. Continue current meds without change including Bumex, Entresto, metoprolol, diltiazem. Signs and symptoms of heart failure reviewed. Continue CardioMEMS readings. Cardiology office visit 4 months, sooner if needed. (2) Atrial fibrillation: Code(s): I48.91 - Unspecified atrial fibrillation Category: Medical Plan: History of paroxysmal atrial fibrillation. Issues with AFib RVR during November hospital admission. He is now on diltiazem and metoprolol XL for rhythm and rate control. His pulse rate is in the normal range today. He denies any recent heart palpitations. His pulse is regular on examination. He is on Coumadin for anticoagulation. Follows with [facility]. No bleeding issues reported. (3) SVT (supraventricular tachycardia): Code(s): I47.1 - Supraventricular tachycardia Category: Medical Plan: Prior history of SVT. No recent events. Continues on metoprolol and diltiazem (4) Pulmonary hypertension: Comment: WHO group 1 Code(s): I27.20 - Pulmonary hypertension, unspecified Category: Medical Plan: As above (5) Hospital discharge follow-up: Code(s): Z09 - Encounter for follow-up examination after completed treatment for conditio ns other than malignant neoplasm Category: Medical Plan: As above. Last hospital admission for COPD exacerbation Plan Time spent on chart review, documentation, interview and assessment Orders: Orders Basic Metabolic Panel 05/11/24 ORIN Greer I27.20 - Pulmonary hypertension, unspecified B Type Natriuretic Peptide 05/11/24 ORIN Greer I27.20 - Pulmonary hypertension, unspecified Medications: Changed From diltiazem HCl CD 240 mg See Protocol PO DAILY 30 caps 1RF To diltiazem HCl CD 240 mg See Protocol PO DAILY Deon Cabral MD Coding Level of Care Code Est Pt Level 4 (50319) Diagnoses (HFpEF) heart failure with preserved ejection fraction I50.30 Atrial fibrillation I48.91 SVT (supraventricular tachycardia) I47.1 Pulmonary hypertension I27.20 Hospital discharge follow-up Z09 Time Spent (min) 30
== END 2024-05-11 10:48 | disposition home or self-care (01) ==
PROVIDERS: PCP Internal Medicine; Visit Provider Nurse Practitioner Family
DX: I50.30 Unspecified diastolic (congestive) heart failure (principal); I48.91 Unspecified atrial fibrillation; I47.10 Supraventricular tachycardia, unspecified; I27.20 Pulmonary hypertension, unspecified; Z09 Encounter for follow-up examination after completed treatment for conditions other than malignant neoplasm
CPT/HCPCS: 99214

== ENCOUNTER → 2024-05-11 09:42 | Outpatient (BNVA) | payer OTHER, SELFPAY | PROVIDERS: PCP Internal Medicine; Visit Provider Nurse Practitioner Family | DX: I50.30 Unspecified diastolic (congestive) heart failure (principal); I48.91 Unspecified atrial fibrillation; I47.10 Supraventricular tachycardia, unspecified; I27.20 Pulmonary hypertension, unspecified; Z79.01 Long term (current) use of anticoagulants; Z79.899 Other long term (current) drug therapy | CPT/HCPCS: 99212 ==

== ENCOUNTER 2024-05-21 10:59 | Outpatient (REF) | payer OTHER, SELFPAY ==
[2024-05-21 13:36] LABS: B Type Natriuretic Peptide 862 pg/mL (<100)
[2024-05-21 13:39] LABS: Anion Gap 15 (12-20); Blood Urea Nitrogen 30 mg/dL (9-16); Calcium 9.4 mg/dL (8.4-10.2); Carbon Dioxide 28 mmol/L (22-29); Chloride 102 mmol/L (96-108); Estimated Glomerular Filt Rate 40; Glucose Random 158 mg/dL (60-115); Potassium 3.4 mmol/L (3.3-5.1); Sodium 142 mmol/L (135-145)
== END 2024-05-21 11:00 | disposition home or self-care (01) ==
LOC: HO.LAB 10:59
PROVIDERS: Nurse Practitioner Family; PCP Internal Medicine; Visit Provider Internal Medicine Cardiovascular Disease
DX: Z13.89 Encounter for screening for other disorder (principal)
CPT/HCPCS: 36415; 80048; 83880

== ENCOUNTER → 2024-05-21 23:59 | Outpatient (BNV) | payer OTHER, SELFPAY ==
--- NOTE | 2024-05-29 09:31 | MHC.OFFVIS ---
Intake Visit Reasons: Remote Cardiomems- [facility] Allergies No Known Allergies Allergy (Unknown, Verified 05/22/24 12:41) NOT APPLICABLE PFSH Medical History (Updated 05/29/24 @ 00:02 by Preeti Pelayo) (HFpEF) heart failure with preserved ejection fraction IPF (idiopathic pulmonary fibrosis) COPD (chronic obstructive pulmonary disease) Reactive airway disease Pulmonary hypertension Chronic respiratory failure CHF (congestive heart failure) ILD (interstitial lung disease) Acute exacerbation of CHF (congestive heart failure) SVT (supraventricular tachycardia) CHF exacerbation Chronic anticoagulation Atrial fibrillation Chronic hypoxemic respiratory failure Hypertension Rheumatoid arthritis Lymphadenopathy COPD exacerbation Surgical History Hx of colonoscopy Social History Household Members: Spouse Housing: House Do you presently have visiting nurse or other home services: No Alcohol intake: never Comment: patient rings appropriately Patient Tobacco Use Status: Former Tobacco user Tobacco use type: Cigarette Years Smoked: 40 e-Cigarette/Vaping Use: Former Use Second Hand Smoke Exposure: No Advance Directives Date on File: 06/27/23 service: No Current occupational status: retired Office Procedures Cardiac Device Check Cardiac Device Check Details: Monitoring period dates: 04/11/24 - 05/21/24 Optimal PA pressure range: ADDY goal 45 mmhg Procedure code: 49997 BACKGROUND: Tommy is implanted with the CardioMEMS PA Sensor.? I use this technology to monitor PA pressures on a weekly basis to ensure patients are within their optimal range to prevent decompensation.? SUMMARY:? I utilized the remote monitoring platform ([employer]) to set optimal targets for pulmonary artery pressure thresholds as part of acute and chronic management of patient?s heart failure. During the period indicated above, I monitored the patient?s pulmonary artery pressures weekly via trend analysis and notification reports which provide alerts when patient?s PA pressures were outside of range to prompt immediate action in medication changes and communications.? The weekly reports are archived in the [employer] system which serve as a parallel record to document weekly PA pressures, medication changes, and clinical notes. I have reviewed readings on 04/13, 04/18, 04/23, 04/30, 05/07. 05/14, 05/21. His ADDY readings have ranged 39-50mmhg. Diuretics adjusted as needed. 96456 - Remote monitoring of wireless pulmonary artery pressure sensor Procedure code (CPT) selection complete Assessment & Plan Assessment & Plan (1) Presence of CardioMEMS HF system: Code(s): Z95.818 - Presence of other cardiac implants and grafts Category: Medical Plan: monthly report Coding Level of Care Code Procedure Only Diagnoses Presence of CardioMEMS HF system Z95.818 CPT Codes Cardiac Device Check - Cardiac Device 17: 94853 - Remote monitoring of wireless pulmonary artery pressure sensor ([id number])
== END ==
PROVIDERS: PCP Internal Medicine; Visit Provider Nurse Practitioner Family
DX: Z45.09 Encounter for adjustment and management of other cardiac device (principal)
CPT/HCPCS: 93264

== ENCOUNTER 2024-05-22 12:31 | Inpatient (IN) | payer OTHER, SELFPAY ==
[2024-05-22] VITALS (9 sets, daily range): BP systolic 117–144; BP diastolic 51–68; PULSE 63–80; RESP 13–20; TEMP 36.3–36.7; O2SAT 90–95; BMI 25.8; BMI 24.9
--- NOTE | ~2024-05-22 | CT_ITS ---
EXAMINATION: CT CHEST WITHOUT CONTRAST CLINICAL INFORMATION: Acute hypoxia. COMPARISON: CT chest 12/14/2023. TECHNIQUE: Multidetector volumetric CT imaging of the chest was done. Axial MIP volume rendering provided. Sagittal and coronal reformatted images were obtained. This CT examination was performed using dose optimization techniques as appropriate, variously including the following: *Automated exposure control *Adjustment of mA and/or kV according to patient size (this includes techniques or standardized protocols for targeted exams where dose is matched to indication/reason for exam; i.e. extremities or head) *Use of iterative reconstruction technique DLP: 290 mGy-cm FINDINGS: LUNGS: Severe emphysema. Interstitial fibrosis not significantly changed with traction bronchiectasis, peripheral reticulation and honeycombing with a lower lung predominance. No new consolidation. Intraluminal filling defects in the right and posterior trachea with some internal air bubbles suggesting mucous secretions or aspirated material. Evaluation of pulmonary nodules/masses is extremely limited due to background of advanced interstitial fibrosis. However, accounting for this limitation, a few nodular-like opacities are new, for instance a pleural-based solid irregular nodule in the lateral right upper lobe measuring 1.1 cm (5:174) and nodular-like thickening with irregular margins within the anterior wall of a large pulmonary bullae in the posterior right upper lobe measuring 0.9 cm (5:176). Several additional nodules are not significantly changed, for example a solid spiculated nodule in the left upper lobe measuring 1.1 cm (5:138 and 8:6), a round solid 0.5 cm in the right lung base (5:118) and a solid irregular 0.8 cm in the inferior right upper lobe (5:291). Stable positioning of metallic densities within pulmonary vascular branches in the left lower lobe (5:338). MEDIASTINUM: Stable cardiomegaly. No pericardial effusion. Redemonstration of enlarged central pulmonary arteries consistent with pulmonary hypertension. Severe atherosclerotic disease of the thoracic aorta which is of normal caliber. Normal appearance of the thyroid gland. Increased mediastinal lymphadenopathy, for example a 2.6 x 1.9 cm subcarinal lymph node (3:33), previously 1.7 x 1.7 cm. Limited evaluation of the hilar structures in the absence of IV contrast, however accounting for this limitation, some of the hilar and peribronchial nodes are increased in size, for instance a 1.4 x 2.2 cm right-sided peribronchial node (5:330) previously 1.3 x 2 cm. CORONARY ARTERY CALCIFICATION: Severe multivessel coronary artery calcifications. PLEURA: New thickening of the left major fissure suspicious for loculated fluid measuring up to 0.9 cm. No pneumothorax. AXILLA: No lymphadenopathy. UPPER ABDOMEN: Unremarkable. OSSEOUS STRUCTURES: Thoracic spondylosis. No acute osseous findings. CT/CT chest wo IV con IMPRESSION: 1. Complex examination with background of advanced emphysema and fibrosis with an IPF pattern. 2. Layering debris in the trachea could represent mucous secretions or aspirated debris. Correlate clinically. 3. No new focal consolidation. 4. New thickening of the left major fissure suspicious for loculated fluid. 5. 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 Following Fleischner guidelines, further evaluation with tissue sampling, PET/CT or CT chest in 3 months is recommended. 6. Increased mediastinal hilar and peribronchial lymphadenopathy. Attention on follow-up advised. 7. Cardiomegaly with pulmonary hypertension and severe coronary artery calcifications and atherosclerotic disease.
--- NOTE | ~2024-05-22 | XR_ITS ---
EXAMINATION: XR CHEST CLINICAL INFORMATION: Cough, hypoxia and pulmonary hypertension COMPARISON: 04/15/2024 chest with TECHNIQUE: Frontal view of the chest was obtained. FINDINGS: Heart size is normal. No evidence of CHF. Tiny amount of blunting of both costophrenic angles seen similar to prior. Emphysematous changes are again seen. Chronic reticular nodular/interstitial opacities are again seen most prominent at the lung bases with no significant interval change when compared to the 04/15/2024 chest radiograph XR/XR chest 1V IMPRESSION: Chronic emphysematous changes with chronic reticular nodular/interstitial opacities most prominent at the lung bases. No significant interval change when compared to 04/15/2024.
--- NOTE | 2024-05-22 12:42 | ECG_ITS ---
Test Reason : SOB Blood Pressure : / mmHG Vent. Rate : 071 BPM Atrial Rate : 071 BPM P-R Int : 142 ms QRS Dur : 100 ms QT Int : 448 ms P-R-T Axes : 075 050 -21 degrees QTc Int : 486 ms Sinus rhythm with Premature supraventricular complexes Possible Lateral infarct , age undetermined Abnormal ECG When compared with ECG of 15-APR-2024 05:24, Fusion complexes are no longer Present Premature ventricular complexes are no longer Present Premature supraventricular complexes are now Present Right bundle branch block is no longer Present Borderline criteria for Lateral infarct are now Present Referred By: Sarah Flores Electronically Signed By:ADAMS CAMEJO MD
[2024-05-22 13:01] LABS: MANUAL DIFF FLAG NO
[2024-05-22 13:02] LABS: Basophils Percent Auto 0.2 % (0-2); Eosinophils Percent Auto 0.1 % (0-4); Hematocrit 39.6 % (42.0-52.0); Hemoglobin 12.3 g/dl (14.0-18.0); Imm Gran Abs Auto 0.05 X10*3/uL (0.00-0.03); Imm Gran Pct Auto 0.4 % (0.0-0.4); Lymphocytes Absolute Auto 1.3 X10*3/uL (1.2-4.9); Lymphocytes Percent Auto 9.6 % (20-40); Mean Corpuscular HGB Conc 31.1 g/dl (31.0-36.0); Mean Corpuscular Hemoglobin 25.9 pg (27.0-33.0); Mean Corpuscular Volume 83.4 fL (80.0-98.0); Monocytes Absolute Auto 0.6 X10*3/uL (0.1-1.2); Monocytes Percent Auto 4.7 % (2-11); NRBC Pct Auto 0.2 /100WBC (0.0-0.2); Neutrophils Absolute Auto 11.1 x10*3/uL (2.0-8.3); Platelet Count 245 X10*3/uL (160-400); Red Blood Count 4.75 X10*6/uL (4.60-5.80); Red Cell Distribution Width 18.4 % (11.0-16.0); White Blood Count 13.1 X10*3/uL (4.8-10.8)
[2024-05-22 13:04] LABS: VBG Base Excess 5.1 mmol/L; VBG HCO3 29 mmol/L (22-26); VBG pCO2 42 mmHg; VBG pH 7.44 (7.32-7.43); VBG pO2 37 mmHg
--- NOTE | 2024-05-22 13:07 | ED.GENADULT ---
HPI - General Adult General Chief complaint: Dyspnea Stated complaint: 70% SAT IN DR COOK,NRB 15LPM 95% NOW PER EMS Time Seen by Provider: 05/22/24 12:31 Source: patient Mode of arrival: ambulatory Limitations: no limitations History of Present Illness ED Provider: Dr. Sarah Flores HPI narrative: patient comes to the emergency room by ambulance from the endocrinology office. According to the patient, he went to see his junior legal secretary today for diabetes. Patient states that when he got there they checked his vital signs, and his oxygen was in the 70s. Patient states that he uses oxygen 4 L 20/06, and his baseline oxygen saturation is approximately 88% on 4 L. Patient states that today when he walked to the office, he was not wearing his oxygen and his O2 dropped. By the time he got there he was in the low 70s. Patient states that when the ambulance came, they put him on 15 L, oxygen saturation improved. Patient states that although his oxygen was low, he did not have any shortness of breath or chest pain, states that he feels completely normal. Patient states that he has noticed that for the last few days he has been coughing a bit more than usual, nonproductive, denies fever or chills. Related Data Home Medications ?Medication ?Instructions ?Recorded ?Confirmed adalimumab 40 mg/0.4 mL 40 mg subcut Q2W 11/20/21 05/14/24 subcutaneous pen kit (Humira(CF) Pen) folic acid 400 mcg tablet 400 mcg PO DAILY 11/20/21 05/14/24 rosuvastatin 10 mg tablet 1 tab PO BEDTIME 11/20/21 04/15/24 timolol maleate 0.5 % eye drops 1 drp ophthalmic (eye) DAILY 11/20/21 05/14/24 tramadol 50 mg tablet 1 tab PO BID PRN Pain, Moderate 11/20/21 05/14/24 aspirin 81 mg tablet,delayed 81 mg PO DAILY 04/18/23 05/14/24 release nitroglycerin 0.4 mg sublingual 0.4 mg sublingual Q5M PRN Chest 04/18/23 05/14/24 tablet Pain omeprazole 40 mg capsule,delayed 40 mg PO DAILY@0630 06/23/23 05/14/24 release albuterol sulfate 90 mcg/actuation 2 puff inhalation Q4H PRN wheezing 12/14/23 05/14/24 aerosol inhaler (Ventolin HFA) Oxygen Home Use 12/23/23 04/15/24 nebulizers 12/23/23 04/15/24 calcitriol 0.25 mcg capsule 0.25 mcg PO Q OTHER DAY 04/15/24 05/14/24 empagliflozin 10 mg tablet 10 mg PO DAILY 04/15/24 05/14/24 (Jardiance) insulin glargine 100 unit/mL (3 20 unit subcut BEDTIME 04/15/24 05/14/24 mL) subcutaneous pen (Lantus Solostar U-100 Insulin) metoprolol tartrate 50 mg tablet 50 mg PO BID 04/15/24 05/14/24 warfarin 5 mg tablet 5 mg PO DAILY@1800 04/15/24 05/14/24 diltiazem HCl 240 mg 240 mg PO DAILY 05/11/24 05/14/24 capsule,extended release 24 hr Previous Rx's ?Medication ?Instructions ?Recorded sacubitril 49 mg-valsartan 51 mg 1 tab PO BID #30 tabs 12/02/23 tablet (Entresto) albuterol sulfate 2.5 mg/3 mL 2.5 mg (3 mL) inhalation Q6H PRN 01/26/24 (0.083 %) solution for nebulization shortness of breath or wheezing 30 days #180 mL bumetanide 1 mg tablet 1 mg PO BID #60 tabs 02/02/24 sildenafil (pulm.hypertension) 20 20 mg PO TID 30 days #90 tabs 03/23/24 mg tablet (Revatio) prednisone 2.5 mg tablet 7.5 mg (3 x 2.5 mg) PO DAILY 30 04/06/24 days #90 tabs Allergies Allergy/AdvReac Type Severity Reaction Status Date / Time No Known Allergies Allergy Unknown NOT Verified 05/22/24 12:41 APPLICABLE Review of Systems Review of Systems: Constitutional : No Weight loss, No Fever, No Chills, No Night Sweats, No Fatigue, No Malaise ENT/Mouth : No Hearing loss, No Ear Pain, No Nasal Congestion, No Sinus Pain, No Hoarseness, No sore throat, No Rhinorrhea, No Swallowing Difficulty Eyes: No Eye Pain, No Swelling, No Redness, No Foreign Body, No Discharge, No Vision Changes Cardiovascular : No Chest Pain, No SOB, No Dyspnea on Exertion, No Orthopnea, No Edema, No Palpitations Respiratory : Low O2, mild dry cough, No Wheezing, No Smoke Exposure, No Dyspnea Gastrointestinal : No Nausea, No Vomiting, No Diarrhea, No Constipation, No abdominal Pain, No Hematochezia, No Melena Genitourinary : no irregular bleeding, No Dysuria, No Urinary Frequency, No Hematuria, No Urinary Incontinence, No Urgency, No Flank Pain, No Urinary Flow Changes, No Hesitancy Musculoskeletal : No joint pain, No Myalgias, No Joint Swelling Skin : No Skin Lesions, No rash Neuro : No Weakness, No Numbness, No Paresthesias, No Loss of Consciousness, No Dizziness, No Headache Psych : No Anxiety/Panic, No Depression, No SI/HI/AH/VH, No Social Issues, Heme/Lymph: No Bruising, No Bleeding,No Lymphadenopathy Endocrine : No Polyuria, No Polydipsia, No Temperature Intolerance [facility] Past Medical History Medical History Reactive airway disease Pulmonary hypertension Chronic respiratory failure IPF (idiopathic pulmonary fibrosis) CHF (congestive heart failure) (HFpEF) heart failure with preserved ejection fraction ILD (interstitial lung disease) COPD (chronic obstructive pulmonary disease) Acute exacerbation of CHF (congestive heart failure) SVT (supraventricular tachycardia) CHF exacerbation Chronic anticoagulation Atrial fibrillation Chronic hypoxemic respiratory failure Hypertension Rheumatoid arthritis Lymphadenopathy COPD exacerbation Surgical History Hx of colonoscopy Social History Social History Household Members: Spouse Housing: Apartment Do you presently have visiting nurse or other home services: No Alcohol intake: never Comment: patient rings appropriately Patient Tobacco Use Status: Former Tobacco user Tobacco use type: Cigarette Years Smoked: 40 e-Cigarette/Vaping Use: Former Use Advance Directives: Yes Advance Directives on File: Yes Advance Directives Date on File: 06/27/23 Do you have a plan to hurt others: No Plan service: No Current occupational status: retired Physical Exam ED Vital Signs: Vital Signs - 24 hr 05/22/24 12:36 05/22/24 14:03 05/22/24 14:04 Temperature 98.0 F Pulse Rate 73 64 Respiratory Rate 20 20 Blood Pressure 140/51 H 117/55 L 117/55 L Pulse Oximetry 90 L 90 L Oxygen Delivery Method Oxymask Oxymask BMI result Body Mass Index 25.8 Const Other: Appearance: Alert. Oriented X3. No acute distress. Eyes: Pupils equal, round and reactive to light. ENT: Pharynx normal. Neck: Normal inspection. Neck supple. No lymph nodes noted. No crepitus CVS: Normal heart rate and rhythm. Pulses normal. Normal S1 and S2 Respiratory: No respiratory distress. Breath sounds normal. No Wheezing. No rales . Oxygen saturation is 82% on 6 L. Patient was switched to 13 L to keep an oxygen saturation of 90% Abdomen: Soft and nontender. No rigidity. No distention. Skin: Skin warm and dry. Normal skin color. Normal skin turgor. Extremities: No lower extremity edema. No Lacerations. No Rash Neuro: Oriented X 3. No motor deficit. No sensory deficit. Moving all extremities. No slurred speech. CN 2 through 12 grossly intact Psych: calm, cooperative, normal affect Course Course Course Narrative: - all of patient's labs and imaging pending - despite being hypoxic, patient states that he is asymptomatic Medications Administered Discontinued Medications Generic Name Dose Route Start Last Admin Trade Name Freq PRN Reason Stop Dose Admin Furosemide 60 mg 05/22/24 13:26 05/22/24 14:04 Furosemide 100 Mg/10 Ml Vial IVPUSH 05/22/24 13:27 60 mg ONCE ONE Administration Protocol Medical Decision Making Medical Decision Making [facility] Narrative: - my interpretation of labs: Patient's has chronic leukocytosis, venous gases within normal limits for the patient, chronic, creatinine a bit bumped, 1.7 which is baseline for the patient, BNP is a bit elevated, 945. Yesterday patient's BNP was 862, previously in the 300s. Patient does have +1 pitting edema in lower extremities bilaterally. Patient received 1 dose of IV Lasix. Chest x-rays do not reflect pulmonary edema. At this time, a pulmonary infection is not suspected. - my interpretation of chest x-ray: No pulmonary edema, no changes from previous chest x-rays, pulmonary fibrosis evident - patient needs 13 L in an OxyMask to keep an oxygen saturation between 89 and 91%. If we tried to wean him down to his usual 4 L, oxygen saturation dropped to the high 70s/low 80s. - I discussed the patient With Dr. Davis from the Medicine team. At this time, an infectious etiology is not suspected. We will not give any fluids or antibiotics at this time Of admission, sepsis not suspected - patient's symptoms likely secondary to pulmonary hypertension, possibly CHF. - We will get a dry CT scan, Medicine team will follow up with the CT scan results. Patient sees Dr. Samson from pulmonology who is on-call today and will be consulted. Differential Diagnosis Differential Diagnoses: The differential diagnosis associated with the presentation includes ( CHF, pulmonary hypertension, pulmonary fibrosis) Admission/Observation Consideration of admission/observation: Escalation of care including admission/observation considered Consult Healthcare Provider Management of the patient was discussed with: Hospitalist Lab Data MDM Lab Attestation statement: I reviewed the patient's lab results. 05/22/24 12:54 05/22/24 12:54 Labs: Lab Results 05/22/24 05/22/24 Range/Units 12:54 12:56 WBC 13.1 H (4.8-10.8) X10*3/uL RBC 4.75 (4.60-5.80) X10*6/uL Hgb 12.3 L (14.0-18.0) g/dl Hct 39.6 L (42.0-52.0) % MCV 83.4 (80.0-98.0) fL MCH 25.9 L (27.0-33.0) pg MCHC 31.1 (31.0-36.0) g/dl RDW 18.4 H (11.0-16.0) % Plt Count 245 (160-400) X10*3/uL MPV 10.0 (9.4-12.4) fL Immature Gran % (Auto) 0.4 (0.0-0.4) % Neut % (Auto) 85.0 H (45-73) % Lymph % (Auto) 9.6 L (20-40) % [place] % (Auto) 4.7 (2-11) % Eos % (Auto) 0.1 (0-4) % Baso % (Auto) 0.2 (0-2) % Lymph # (Auto) 1.3 (1.2-4.9) X10*3/uL [place] # (Auto) 0.6 (0.1-1.2) X10*3/uL Eos # (Auto) 0.0 (0.0-0.4) X10*3/uL Baso # (Auto) 0.0 (0.0-0.2) X10*3/uL Abs Immat Gran (auto) 0.05 H (0.00-0.03) X10*3/uL Absolute Neuts (auto) 11.1 H (2.0-8.3) x10*3/uL Absolute Nucleated RBC 0.030 H (0.0-0.012) X10*3/uL Nucleated RBC % (auto) 0.2 (0.0-0.2) /100WBC PT 23.4 H D (11.1-13.3) SEC INR 1.9 H (0.9-1.1) VBG pH 7.44 H (7.32-7.43) VBG pCO2 42 mmHg VBG pO2 37 mmHg VBG HCO3 29 H (22-26) mmol/L VBG O2 Saturation 48.0 % VBG Base Excess 5.1 mmol/L Sodium 142 (135-145) mmol/L Potassium 3.8 (3.3-5.1) mmol/L Chloride 105 (96-108) mmol/L Carbon Dioxide 24 (22-29) mmol/L Anion Gap 17 (12-20) BUN 33 H (9-16) mg/dL Creatinine 1.70 H (0.5-1.4) mg/dL Estim Creat Clear Calc 37.5 Estimated GFR 39 Random Glucose 148 H (60-115) mg/dL Lactic Acid 1.5 (0.5-2.0) mmol/L Calcium 9.5 (8.4-10.2) mg/dL Magnesium 2.3 (1.6-2.6) mg/dL Total Bilirubin 0.6 (0.0-1.0) mg/dL Direct Bilirubin 0.2 (0.0-0.5) mg/dL AST 19 (5-37) U/L ALT 30 (0-40) U/L Alkaline Phosphatase 81 (39-117) U/L Troponin I High Sens 10.3 (<3.5-35.0) ng/L B-Natriuretic Peptide 945 H (<100) pg/mL Total Protein 7.8 (6.5-8.0) g/dL Albumin 3.9 (3.5-5.0) g/dL COVID-19 ([facility]) Negative (Negative) COVID-19 Clin Com See Note Influenza Type A (JACOB) Negative (Negative) Influenza Type B (JACOB) Negative (Negative) Influenza A & B Note See Note Independent Interpretation I performed an independent interpretation of an: Plain X-Ray Radiology Impression Discussion of test interpretation with radiology: I have reviewed the radiologist's reading. Radiologist Impression: INDINGS: Heart size is normal. No evidence of CHF. Tiny amount of blunting of both costophrenic angles seen similar to prior. Emphysematous changes are again seen. Chronic reticular nodular/interstitial opacities are again seen most prominent at the lung bases with no significant interval change when compared to the 04/15/2024 chest radiograph XR/XR chest 1V IMPRESSION: Chronic emphysematous changes with chronic reticular nodular/interstitial opacities most prominent at the lung bases. No significant interval change when compared to 04/15/2024. Independent Historian Clinical information obtained from an independent historian. History obtained from or confirmed by: Spouse Critical Care Time Critical Care Time Critical Care Time: Yes Total Critical Care Time: 60 Attestation: I have personally provided critical care time. Time includes review of lab data, radiology results, discussion with consultants, and monitoring for potential decompensation. Intervention performed as documented. Discharge Plan Discharge Clinical Impression: Hypoxic, CHF exacerbation Patient Disposition: Admitted As Inpatient Prescriptions: No Action albuterol sulfate 2.5 mg /3 mL (0.083 %) solution for nebulization 2.5 mg inhalation Q6H PRN (Reason: shortness of breath or wheezing) 30 Days Qty: 180 11RF Rx Instructions: J44.1 COPD with acute exacerbation. sildenafil (pulm.hypertension) [Revatio] 20 mg tablet 20 mg PO TID 30 Days Qty: 90 3RF Rx Instructions: administer doses at least 4-6 hours apart prednisone 2.5 mg tablet 7.5 mg PO DAILY 30 Days Qty: 90 2RF Hold Instructions: Resume on 04/21/24. folic acid 400 mcg tablet 400 mcg PO DAILY tramadol 50 mg tablet 1 tab PO BID PRN (Reason: Pain, Moderate) timolol maleate 0.5 % drops 1 drp ophthalmic (eye) DAILY rosuvastatin 10 mg tablet 1 tab PO BEDTIME Humira(CF) Pen 40 mg/0.4 mL pen injector kit 40 mg subcut Q2W aspirin 81 mg Tablet,Delayed Release (Dr/Ec) 81 mg PO DAILY nitroglycerin 0.4 mg tablet, sublingual 0.4 mg sublingual Q5M PRN (Reason: Chest Pain) omeprazole 40 mg capsule,delayed release(DR/EC) 40 mg PO DAILY@0630 Entresto 49-51 mg Tablet 1 tab PO BID Qty: 30 1RF Protocol: Hold for SBP< HOLD for SBP < : 90 albuterol sulfate [Ventolin HFA] 90 mcg/actuation HFA aerosol inhaler 2 puff INHALATION Q4H PRN (Reason: wheezing) warfarin 5 mg tablet 5 mg PO DAILY@1800 metoprolol tartrate 50 mg tablet 50 mg PO BID calcitriol 0.25 mcg capsule 0.25 mcg PO Q OTHER DAY Jardiance 10 mg tablet 10 mg PO DAILY insulin glargine [Lantus Solostar U-100 Insulin] 100 unit/mL (3 mL) insulin pen 20 unit subcut BEDTIME bumetanide 1 mg tablet 1 mg PO BID Qty: 60 5RF (DME) nebulizers Misc See Rx Instructions .Route Rx Instructions: As directed (DME) Oxygen Home Use Kit See Rx Instructions .Route Rx Instructions: As directed diltiazem HCl 240 mg capsule,extended release 24hr 240 mg PO DAILY Protocol: Hold for SBP/HR < HOLD for SBP < : 90 HOLD for HR < : 60 Print Language: Kazakh
[2024-05-22 13:09] LABS: INTERNATIONAL NORM RATIO 1.9 (0.9-1.1); Prothrombin Time 23.4 SEC (11.1-13.3)
[2024-05-22 13:12] LABS: Venous Blood Gas Refer to POC result
[2024-05-22 13:14] LABS: Lactic Acid 1.5 mmol/L (0.5-2.0)
[2024-05-22 13:19] LABS: COVID-19 Test Negative (Negative); IDNOW Serial# 152EDE1D
[2024-05-22 13:20] LABS: IDNOW Serial# 08D9AD1C; Influenza A Negative (Negative); Influenza B2 Negative (Negative)
[2024-05-22 13:21] LABS: B Type Natriuretic Peptide 945 pg/mL (<100)
[2024-05-22 13:25] LABS: Troponin-I High Sensitivity 10.3 ng/L (<3.5-35.0)
[2024-05-22] MEDS: Furosemide 100 MG/10 ML VIAL 60 MG IVPUSH (14:04)
[2024-05-22 14:26] LABS: Alanine Aminotransferase 30 U/L (0-40); Albumin Level 3.9 g/dL (3.5-5.0); Alkaline Phosphatase 81 U/L (39-117); Anion Gap 17 (12-20); Aspartate Amino Transferase 19 U/L (5-37); Bilirubin Direct 0.2 mg/dL (0.0-0.5); Bilirubin Total 0.6 mg/dL (0.0-1.0); Blood Urea Nitrogen 33 mg/dL (9-16); Calcium 9.5 mg/dL (8.4-10.2); Carbon Dioxide 24 mmol/L (22-29); Chloride 105 mmol/L (96-108); Creatinine Clr Calc Pharmacy 37.5; Estimated Glomerular Filt Rate 39; Glucose Random 148 mg/dL (60-115); Magnesium 2.3 mg/dL (1.6-2.6); Potassium 3.8 mmol/L (3.3-5.1); Sodium 142 mmol/L (135-145); Total Protein 7.8 g/dL (6.5-8.0)
--- NOTE | 2024-05-22 15:43 | PM.IMHP ---
History of Present Illness Date of Service: 05/22/24 Attending physician on admission: Major Davis Chief Complaint: hypoxia 78-year-old male with past medical history of HFpEF s/p CardioMEMS, Pulmonary HTN/cor Pulmonale, IPF, ashmta/COPD on 4 liters of O2 at baseline, PAF on coumdin, RA on chronic steroid (prednisone 7.5/d), type 2 dm, HTN presented to the ED earlier today from endrocrinology where his O2 sat was found to be in the low 70s. He reports he does have some dodd but is otherwise comfortble. He does endorse productive cough with yellow sputum ongoing 3-4 days. No fevers, chills, st, congestion, abd pain, n/v/d, wheezing, lightheadedness, weight gain, orthopnea, or chest pain. He has chronic ble edema and denies any acute worsening. In the ambulance was requiring 15L on nonrebreather to maintain 90%. No one sick at home. Since arrival, vitals otherwise stable, continues on 13L O2 to maintain oximetry 88-90%. He has a leukocytosis of 13.1. Renal function consistent with baseline, lytes wnl. Lactic acid 1.5. Trop 10.3, BNP 945. VBG reassuring with ph 7.44, pc02 42, bicarb 29. Negative for covid/flu/rsv. cxr reflects chronic changes. CT chest pending. EKG shows NSR with premature supraventicular conplexes, rate 71, no sachin/depressions. In the ED, received 40mg lasix. Review of Systems Review of Systems: Yes all other systems are reviewed and are negative [facility] Medical History Reactive airway disease Pulmonary hypertension Chronic respiratory failure IPF (idiopathic pulmonary fibrosis) CHF (congestive heart failure) (HFpEF) heart failure with preserved ejection fraction ILD (interstitial lung disease) COPD (chronic obstructive pulmonary disease) Acute exacerbation of CHF (congestive heart failure) SVT (supraventricular tachycardia) CHF exacerbation Chronic anticoagulation Atrial fibrillation Chronic hypoxemic respiratory failure Hypertension Rheumatoid arthritis Lymphadenopathy COPD exacerbation Surgical History Hx of colonoscopy Social History Household Members: Spouse Housing: Apartment Do you presently have visiting nurse or other home services: No Alcohol intake: never Comment: patient rings appropriately Patient Tobacco Use Status: Former Tobacco user Tobacco use type: Cigarette Years Smoked: 40 e-Cigarette/Vaping Use: Former Use Advance Directives: Yes Advance Directives on File: Yes Advance Directives Date on File: 06/27/23 Do you have a plan to hurt others: No Plan service: No Current occupational status: retired Meds Allergies Allergy/AdvReac Type Severity Reaction Status Date / Time No Known Allergies Allergy Unknown NOT Verified 05/22/24 12:41 APPLICABLE Active Medications: Current Medications Acetaminophen (Acetaminophen 325 Mg Tablet) 650 mg PO Q6H PRN PRN Reason: Pain, Mild (Pain Scale 1-3), fever or headache Calcium Carbonate (Calcium Carbonate 750 Mg Tab.Chew) 750 mg PO Q4H PRN PRN Reason: Heartburn Ceftriaxone Sodium 1 gm/ (Sodium Chloride) 50 mls @ 100 mls/hr IV Q24H JEN Doxycycline Hyclate 100 mg/ (Sodium Chloride) 250 mls @ 166.67 mls/hr IV Q12H JEN Magnesium Hydroxide (Milk Of Magnesia 30 Ml Oral.Susp) 30 ml PO DAILY PRN PRN Reason: Constipation Melatonin (Melatonin 3 Mg Tablet) 6 mg PO BEDTIME PRN PRN Reason: Insomnia Sodium Chloride (0.9 % Sodium Chloride Flush 3 Ml Syringe) 3 ml IVFLUSH QSHIFT JEN Home Medications ?Medication ?Instructions ?Recorded ?Confirmed ?Last Taken ?Type adalimumab 40 mg/0.4 mL 40 mg subcut Q2W 11/20/21 05/14/24 04/10/24 History subcutaneous pen kit (Humira(CF) Pen) folic acid 400 mcg tablet 400 mcg PO DAILY 11/20/21 05/14/24 04/14/24 History rosuvastatin 10 mg tablet 1 tab PO BEDTIME 11/20/21 04/15/24 04/14/24 History timolol maleate 0.5 % eye drops 1 drp ophthalmic (eye) DAILY 11/20/21 05/14/24 04/14/24 History tramadol 50 mg tablet 1 tab PO BID PRN Pain, Moderate 11/20/21 05/14/24 06/23/23 History aspirin 81 mg tablet,delayed 81 mg PO DAILY 04/18/23 05/14/24 04/14/24 History release nitroglycerin 0.4 mg sublingual 0.4 mg sublingual Q5M PRN Chest 04/18/23 05/14/24 Unknown History tablet Pain omeprazole 40 mg capsule,delayed 40 mg PO DAILY@0630 06/23/23 05/14/24 04/14/24 History release albuterol sulfate 90 mcg/actuation 2 puff inhalation Q4H PRN wheezing 12/14/23 05/14/24 Unknown History aerosol inhaler (Ventolin HFA) Oxygen Home Use 12/23/23 04/15/24 04/14/24 History nebulizers 12/23/23 04/15/24 04/14/24 History calcitriol 0.25 mcg capsule 0.25 mcg PO Q OTHER DAY 04/15/24 05/14/24 04/14/24 History empagliflozin 10 mg tablet 10 mg PO DAILY 04/15/24 05/14/24 04/14/24 History (Jardiance) insulin glargine 100 unit/mL (3 20 unit subcut BEDTIME 04/15/24 05/14/24 04/14/24 History mL) subcutaneous pen (Lantus Solostar U-100 Insulin) metoprolol tartrate 50 mg tablet 50 mg PO BID 04/15/24 05/14/24 04/14/24 History warfarin 5 mg tablet 5 mg PO DAILY@1800 04/15/24 05/14/24 04/14/24 History diltiazem HCl 240 mg 240 mg PO DAILY 05/11/24 05/14/24 Unknown History capsule,extended release 24 hr Physical Exam Vital Signs and Narrative: Vital Signs: Last Vital Signs Temp 98.0 F 05/22/24 12:36 Pulse 64 05/22/24 14:03 Resp 20 05/22/24 14:03 BP 117/55 L 05/22/24 14:04 Pulse Ox 90 L 05/22/24 14:03 O2 Del Method Oxymask 05/22/24 14:03 Oxygen Flow Rate 8 05/22/24 12:36 BMI result Body Mass Index 25.8 Constitutional - Awake and Alert, No apparent distress Eyes - PERRLA, EOMI Cardiovascular - S1S2, RRR, 1+ ble edema Respiratory - Normal lung expansion, Normal respiratory effort, No respiratory distress, CTA bilaterally Gastrointestinal - NT / ND; +BS; No rebound or guarding Extremities - no calf tenderness bilaterally, no swelling Skin - Warm/Dry Neurological - Alert & oriented x3, CN II-XII in tact, 5/5 strength BUE and BLE Results Labs 05/22/24 12:54 05/22/24 12:54 Labs: Laboratory Results - last 24 hr 05/22/24 05/22/24 12:54 12:56 MCV 83.4 MCH 25.9 L MCHC 31.1 RDW 18.4 H Plt Count 245 MPV 10.0 Immature Gran % (Auto) 0.4 Neut % (Auto) 85.0 H Lymph % (Auto) 9.6 L [place] % (Auto) 4.7 Eos % (Auto) 0.1 Baso % (Auto) 0.2 Lymph # (Auto) 1.3 [place] # (Auto) 0.6 Eos # (Auto) 0.0 Baso # (Auto) 0.0 Abs Immat Gran (auto) 0.05 H Absolute Neuts (auto) 11.1 H Absolute Nucleated RBC 0.030 H Nucleated RBC % (auto) 0.2 PT 23.4 H D INR 1.9 H VBG pH 7.44 H VBG pCO2 42 VBG pO2 37 VBG HCO3 29 H VBG O2 Saturation 48.0 VBG Base Excess 5.1 Anion Gap 17 Estim Creat Clear Calc 37.5 Estimated GFR 39 Random Glucose 148 H Lactic Acid 1.5 Calcium 9.5 Magnesium 2.3 Total Bilirubin 0.6 Direct Bilirubin 0.2 AST 19 ALT 30 Alkaline Phosphatase 81 Troponin I High Sens 10.3 B-Natriuretic Peptide 945 H Total Protein 7.8 Albumin 3.9 COVID-19 ([facility]) Negative COVID-19 Clin Com See Note Influenza Type A (JACOB) Negative Influenza Type B (JACOB) Negative Influenza A & B Note See Note Imaging Radiologist's Impressions: Impressions Chest X-Ray 05/22/24 13:16 IMPRESSION: Chronic emphysematous changes with chronic reticular nodular/interstitial opacities most prominent at the lung bases. No significant interval change when compared to 04/15/2024. Assessment and Plan (1) Acute hypoxemic respiratory failure: Status: Resolved Plan 78-year-old male with past medical history of HFpEF s/p CardioMEMS, Pulmonary HTN/cor Pulmonale, IPF, ashmta/COPD on 4 liters of O2 at baseline, PAF on coumdin, RA on chronic steroid (prednisone 7.5/d), type 2 dm, HTN admitted for acute hypoxemic respiratory failure. #Acute on chronic hypoxemic respiratory failure -etiology unclear at this time. ?CHF exacerbation, vs CAP, vs pulmonary htn, vs viral infection -CXR shows only chronic changes. Chest CT pending -neg covid, flu, rsv. Check RPP -empirically cover for pneumonia with ctx and doxy (initiated 05/22) -Hold on further lasix at this time. Resume pending CT results -pulmonology consult -continue supplemental O2, wean as tolerated per policy #HFrEF -does not appear to be in acute exacerbation clinically. BNP elevated, but no worsening sob, edema. No orthopnea -continue po diuretics, entresto, jardiance, metoprolol #Paroxysmal atrial fibrillation -continue coumadin, monitor INR -contineu metoprolol, cardizem #Insulin depedent type 2 diabetes -dose adjusted basal insulin -poc glucose, diabetic diet -admelog on sliding scale #RA -continue prednisone #HTN -continue metoprolol, entresto, cardizem #HLD -statin #CKDstage 3b -renal fx baseline dvt prophylaxis- coumadin full code pt requires inpt stay at least 2 midnights for hypoxemic respiratory currently requiring high doses (13L) O2 via oxymask to maintain [id number]% and requires further investigation into etiology of respiratory failure with further imaging and expert consultation Quality Stroke Does the patient have a stroke diagnosis?: No VTE Prior VTE?: No VTE Risk Level:: Medical - moderate - high VTE Device Contraindication: Treatment Not Indicated VTE Drug Contraindication: N/A - Med Ordered
[2024-05-22] MEDS: cefTRIAXone sodium 1 GM in 0.9 % Sodium Chloride 50 ML IV (15:44)
[2024-05-22] MEDS: 0.9 % Sodium Chloride Flush 3 ML SYRINGE IVFLUSH ×2 (15:53→20:56)
[2024-05-22] MEDS: Doxycycline Hyclate 100 MG in 0.9 % Sodium Chloride 250 ML 166.67 MG IV (15:53)
--- NOTE | 2024-05-22 16:39 | PHA.MEDREC ---
Pharmacy Consult ? Medication Reconciliation Pharmacy has completed the medication reconciliation. Confrimed medications with patient and patient at bedside. Luis Fernando confirmed mostly all but patient himself was able to confirm his Humira Pen 40 mg subcut every 2 weeks and he was able to confirm he took it last Tuesday05/18/2024. The confirmed his Warfarin dosing 5mg once daily @1800 and he took it last yesterday 05/21.
[2024-05-22] MEDS: Insulin Lispro 100 UNIT/ML 3 ML VIAL SUBCUT (17:00)
[2024-05-22 17:25] LABS: Glucose, Whole Blood 159 mg/dL (60-115)
[2024-05-22] MEDS: Warfarin Sodium 5 MG TABLET PO (18:31)
--- NOTE | 2024-05-22 19:20 | MHC.EDTECH ---
THIS PCT ASSUMED CARE OF PATIENT AT 1900 ,VITALS TAKEN ,BLOOD SUGAR CHECK ,DINNER WAS GIVEN TO PATIENT ,BUT PATIENT REFUSED ,PATIENT HAD A FEW SALTINES CRACKERS AND DIET MURRAY ZULLY .
[2024-05-22 19:36] LABS: Glucose, Whole Blood 112 mg/dL (60-115)
--- NOTE | 2024-05-22 19:49 | PC.NURSE ---
respiratory at bedside , titrated down to 4 on oxymask to see how he does as he was 95 02 on 13 L
[2024-05-22] MEDS: Atorvastatin Calcium 40 MG TABLET PO (20:54)
[2024-05-22] MEDS: Sacubitril/Valsartan 49/51 1 TAB TABLET PO (20:54)
[2024-05-22] MEDS: traMADoL HCL 50 MG TABLET PO (20:55)
[2024-05-22] MEDS: Bumetanide 1 MG TABLET PO (20:55)
[2024-05-22] MEDS: Insulin Glargine,Hum.rec.anlog 100 UNIT/ML 10 ML VIAL 15 UNIT SUBCUT (20:56)
[2024-05-22] MEDS: Sildenafil Citrate 20 MG TABLET PO (20:56)
[2024-05-22 20:57] LABS: Glucose, Whole Blood 108 mg/dL (60-115)
[2024-05-22] MEDS: Metoprolol Tartrate 50 MG TABLET PO (21:05)
[2024-05-23] VITALS (9 sets, daily range): BP systolic 137–150; BP diastolic 61–70; PULSE 54–76; RESP 16–18; TEMP 36–36.1; O2SAT 92–95
[2024-05-23] MEDS: Doxycycline Hyclate 100 MG in 0.9 % Sodium Chloride 250 ML 166.67 MG IV ×2 (02:47→15:25)
[2024-05-23] MEDS: Omeprazole 20 MG CAPSULE.DR PO (05:37)
--- NOTE | 2024-05-23 05:56 | PC.NURSE ---
Pt arrived from ED on a stretcher approx 2030. He arrived on 7L O2 via oxymask. Pt AOx3, able to answer all questions. Pt does primariy speak Japanese but was able to understand and answer question in [place]. He is utilizing the urinal and it has been CYU. Pt utilizes call whitt appropriately. At this time he has no c/o pain. Call whitt is within reach. Bed alarm is on. Safety maintained throughout shift.
[2024-05-23 06:53] LABS: MANUAL DIFF FLAG NO
[2024-05-23 07:00] LABS: Basophils Absolute Auto 0.1 X10*3/uL (0.0-0.2); Basophils Percent Auto 0.6 % (0-2); Eosinophils Absolute Auto 0.1 X10*3/uL (0.0-0.4); Eosinophils Percent Auto 0.9 % (0-4); Hematocrit 41.1 % (42.0-52.0); Hemoglobin 12.7 g/dl (14.0-18.0); Imm Gran Abs Auto 0.04 X10*3/uL (0.00-0.03); Imm Gran Pct Auto 0.4 % (0.0-0.4); Lymphocytes Absolute Auto 1.9 X10*3/uL (1.2-4.9); Lymphocytes Percent Auto 18.6 % (20-40); Mean Corpuscular HGB Conc 30.9 g/dl (31.0-36.0); Mean Corpuscular Hemoglobin 25.8 pg (27.0-33.0); Mean Corpuscular Volume 83.5 fL (80.0-98.0); Mean Platelet Volume 10.1 fL (9.4-12.4); Monocytes Absolute Auto 1.1 X10*3/uL (0.1-1.2); Monocytes Percent Auto 11.2 % (2-11); Neutrophils Absolute Auto 6.9 x10*3/uL (2.0-8.3); Neutrophils Percent Auto 68.3 % (45-73); Platelet Count 262 X10*3/uL (160-400); Red Blood Count 4.92 X10*6/uL (4.60-5.80); Red Cell Distribution Width 18.6 % (11.0-16.0); White Blood Count 10.1 X10*3/uL (4.8-10.8)
[2024-05-23 07:06] LABS: Glucose, Whole Blood 85 mg/dL (60-115)
[2024-05-23 07:10] LABS: Prothrombin Time 24.1 SEC (11.1-13.3)
[2024-05-23 07:14] LABS: Anion Gap 18 (12-20); Blood Urea Nitrogen 27 mg/dL (9-16); Calcium 9.8 mg/dL (8.4-10.2); Carbon Dioxide 28 mmol/L (22-29); Chloride 105 mmol/L (96-108); Creatinine Clr Calc Pharmacy 40.1; Estimated Glomerular Filt Rate 42; Glucose Random 75 mg/dL (60-115); Potassium 3.7 mmol/L (3.3-5.1); Sodium 147 mmol/L (135-145)
[2024-05-23] MEDS: Bumetanide 1 MG TABLET PO ×2 (07:47→20:39)
[2024-05-23] MEDS: 0.9 % Sodium Chloride Flush 3 ML SYRINGE IVFLUSH ×2 (07:47→20:45)
[2024-05-23] MEDS: Folic Acid 1 MG TABLET PO (07:48)
[2024-05-23] MEDS: Metoprolol Tartrate 50 MG TABLET PO ×2 (07:48→20:39)
[2024-05-23] MEDS: Sacubitril/Valsartan 49/51 1 TAB TABLET PO ×2 (07:48→20:38)
[2024-05-23] MEDS: Empagliflozin 10 MG TABLET PO (07:49)
[2024-05-23] MEDS: Aspirin Enteric Coated 81 MG TABLET.DR PO (07:49)
[2024-05-23] MEDS: dilTIAZem HCL CD 240 MG CAP.ER.DEG PO (07:49)
[2024-05-23] MEDS: Sildenafil Citrate 20 MG TABLET PO ×3 (07:50→20:38)
[2024-05-23] MEDS: predniSONE 2.5 MG TABLET 7.5 MG PO (07:50)
--- NOTE | 2024-05-23 08:58 | PM.CNPUL ---
History of Present Illness History of Present Illness Consult date: 05/23/24 Chief complaint: Acute hypoxemic respiratory failure Narrative: This is an inpatient pulmonary consultation. The patient is a 78-year-old male with past medical history of HFpEF s/p CardioMEMS, Pulmonary HTN/cor Pulmonale, IPF, ashmta/COPD on 4 liters of O2 at baseline, PAF on coumdin, RA on chronic steroid (prednisone 7.5/d), type 2 dm, HTN presented to the ED earlier today from endrocrinology where his O2 sat was found to be in the low 70s. He reports he does have some dodd but is otherwise comfortble. He does endorse productive cough with yellow sputum ongoing 3-4 days. No fevers, chills, st, congestion, abd pain, n/v/d, wheezing, lightheadedness, weight gain, orthopnea, or chest pain. He has chronic ble edema and denies any acute worsening. In the ambulance was requiring 15L on nonrebreather to maintain 90%. No one sick at home. Since arrival, vitals otherwise stable, continues on 13L O2 to maintain oximetry 88-90%. He has a leukocytosis of 13.1. Renal function consistent with baseline, lytes wnl. Lactic acid 1.5. Trop 10.3, BNP 945. VBG reassuring with ph 7.44, pc02 42, bicarb 29. Negative for covid/flu/rsv. cxr reflects chronic changes. CT chest pending. EKG shows NSR with premature supraventicular conplexes, rate 71, no sachin/depressions. In the ED, received 40mg lasix. Review of Systems Constitutional: Constitutional: Denies night sweats ENT: Denies change in voice, Denies lip swelling, Denies mouth pain, Reports nasal congestion, Reports nasal discharge and Denies tongue swelling Cardiovascular: Cardiovascular: Denies chest pain and Reports dyspnea Respiratory: Respiratory: Reports cough, Denies hemoptysis and Reports dyspnea Gastrointestinal: Gastrointestinal: Denies abdominal pain Musculoskeletal: Musculoskeletal: Denies no additional musculoskeletal complaints Neurologic: Denies Neuro-related abnormal movements Psychiatric: Psychiatric: Denies no additional psychiatric complaints Hematologic/Lymphatic: Hematologic/Lymphatic: Denies easy bleeding and Denies lymphadenopathy Allergic/Immunologic: Allergic/Immunologic: Denies lip swelling and Denies tongue swelling [facility] Past Medical History Medical History (Updated 05/23/24 @ 09:01 by Shon Samson MD) IPF (idiopathic pulmonary fibrosis) COPD (chronic obstructive pulmonary disease) Reactive airway disease Pulmonary hypertension Chronic respiratory failure CHF (congestive heart failure) (HFpEF) heart failure with preserved ejection fraction ILD (interstitial lung disease) Acute exacerbation of CHF (congestive heart failure) SVT (supraventricular tachycardia) CHF exacerbation Chronic anticoagulation Atrial fibrillation Chronic hypoxemic respiratory failure Hypertension Rheumatoid arthritis Lymphadenopathy COPD exacerbation Surgical History Surgical History Hx of colonoscopy Social History Social History Household Members: Spouse Housing: House Do you presently have visiting nurse or other home services: No Alcohol intake: never Comment: patient rings appropriately Patient Tobacco Use Status: Former Tobacco user Tobacco use type: Cigarette Years Smoked: 40 Smoked in Last 30 Days: No e-Cigarette/Vaping Use: Former Use Patient Interested in Nicotine Replacement: No Patient Given Instructions on How to Stop Smoking: No Second Hand Smoke Exposure: No Use of substances other than those prescribed or required for medical reasons: No Currently Displaying Signs/Symptoms of Drug Intoxication Withdrawal: No Have you been hit, kicked, punched, or otherwise hurt by someone within the past year? If so, by whom?: No Do you feel safe in your current relationship?: Yes Is there a partner from a previous relationship who is making you feel unsafe now?: No Are you made to feel afraid or neglected: No Advance Directives: Yes Advance Directives on File: Yes Advance Directives Date on File: 06/27/23 Do you have a plan to hurt others: No Plan Recently lost weight without trying: No How much weight loss: Not applicable Eating poorly because of decreased appetite: No Nutrition screen score: 0 Nutrition Risks: No Nutritional Risk Poor oral hygiene: No service: No Current occupational status: retired Meds Allergies Allergy/AdvReac Type Severity Reaction Status Date / Time No Known Allergies Allergy Unknown NOT Verified 05/22/24 12:41 APPLICABLE Active Medications: Current Medications Acetaminophen (Acetaminophen 325 Mg Tablet) 650 mg PO Q6H PRN PRN Reason: Pain, Mild (Pain Scale 1-3), fever or headache Albuterol Sulfate (Albuterol Sulfate 90 Mcg 8 Gm Inhaler) 2 puff INHALE Q4H PRN PRN Reason: wheezing Albuterol/Ipratropium (Albuterol/Iprat 2.5/0.5mg 3 Ml Ampul.Neb) 3 ml INHALE RQ4H WHILE AWAKE PRN PRN Reason: Shortness of Breath/Wheezing Aspirin (Aspirin Enteric Coated 81 Mg Tablet.Dr) 81 mg PO DAILY [facility] Last Admin: 05/23/24 07:49 Dose: 81 mg Atorvastatin Calcium (Atorvastatin Calcium 40 Mg Tablet) 40 mg PO BEDTIME JEN Last Admin: 05/22/24 20:54 Dose: 40 mg Bumetanide (Bumetanide 1 Mg Tablet) 1 mg PO BID [facility]; Protocol Last Admin: 05/23/24 07:47 Dose: 1 mg Calcium Carbonate (Calcium Carbonate 750 Mg Tab.Chew) 750 mg PO Q4H PRN PRN Reason: Heartburn Diltiazem HCl (Diltiazem Hcl Cd 240 Mg Cap.Er.Deg) 240 mg PO DAILY [facility]; Protocol Last Admin: 05/23/24 07:49 Dose: 240 mg Empagliflozin (Empagliflozin 10 Mg Tablet) 10 mg PO DAILY [facility] Last Admin: 05/23/24 07:49 Dose: 10 mg Folic Acid (Folic Acid 1 Mg Tablet) 1 mg PO DAILY [facility] Last Admin: 05/23/24 07:48 Dose: 1 mg Glucose (Glucose Gel 15 Gm Gel..Gram.) 15 gm PO Q15M PRN; Protocol PRN Reason: per Hypoglycemia Standing Ord. Ceftriaxone Sodium 1 gm/ (Sodium Chloride) 50 mls @ 100 mls/hr IV Q24H [facility] Last Infusion: 05/22/24 15:55 Dose: Infused Doxycycline Hyclate 100 mg/ (Sodium Chloride) 250 mls @ 166.67 mls/hr IV Q12H [facility] Last Infusion: 05/23/24 04:21 Dose: Infused Dextrose (D10) 250 mls @ 750 mls/hr IV Q15M PRN; Protocol PRN Reason: per Hypoglycemia Standing Ord. Insulin Glargine (Insulin Glargine,Hum.Rec.Anlog 100 Unit/Ml 10 Ml Vial) 15 unit SUBCUT BEDTIME [facility] Last Admin: 05/22/24 20:56 Dose: 15 unit Insulin Human Lispro (Insulin Lispro 100 Unit/Ml 3 Ml Vial) 0 unit SUBCUT QIDACHS [facility]; Protocol Last Admin: 05/23/24 07:39 Dose: Not Given Magnesium Hydroxide (Milk Of Magnesia 30 Ml Oral.Susp) 30 ml PO DAILY PRN PRN Reason: Constipation Melatonin (Melatonin 3 Mg Tablet) 6 mg PO BEDTIME PRN PRN Reason: Insomnia Metoprolol Tartrate (Metoprolol Tartrate 50 Mg Tablet) 50 mg PO BID [facility]; Protocol Last Admin: 05/23/24 07:48 Dose: 50 mg Omeprazole (Omeprazole 20 Mg Capsule.Dr) 20 mg PO DAILY@0630 [facility] Last Admin: 05/23/24 05:37 Dose: 20 mg Prednisone (Prednisone 2.5 Mg Tablet) 7.5 mg PO DAILY [facility] Last Admin: 05/23/24 07:50 Dose: 7.5 mg Sacubitril/Valsartan (Sacubitril/Valsartan 49/51 1 Tab Tablet) 1 tab PO BID [facility]; Protocol Last Admin: 05/23/24 07:48 Dose: 1 tab Sildenafil Citrate (Sildenafil Citrate 20 Mg Tablet) 20 mg PO TID [facility] Last Admin: 05/23/24 07:50 Dose: 20 mg Sodium Chloride (0.9 % Sodium Chloride Flush 3 Ml Syringe) 3 ml IVFLUSH QSHIFT [facility] Last Admin: 05/23/24 07:47 Dose: 3 ml Timolol Maleate (Timolol Maleate 0.5 % Oph [place] 5 Ml Drbtl) 1 drop EYE-BOTH DAILY [facility] Tramadol HCl (Tramadol Hcl 50 Mg Tablet) 50 mg PO BID PRN PRN Reason: Pain, Moderate Last Admin: 05/22/24 20:55 Dose: 50 mg Warfarin Sodium (Warfarin Sodium 5 Mg Tablet) 5 mg PO DAILY@1800 [facility] Last Admin: 05/22/24 18:31 Dose: 5 mg Home Medications ?Medication ?Instructions ?Recorded ?Confirmed ?Last Taken ?Type adalimumab 40 mg/0.4 mL 40 mg subcut Q2W 11/20/21 05/22/24 05/18/24 History subcutaneous pen kit (Humira(CF) Pen) folic acid 400 mcg tablet 400 mcg PO DAILY 11/20/21 05/22/24 05/22/24 06:00 History rosuvastatin 10 mg tablet 1 tab PO BEDTIME 11/20/21 05/22/24 05/21/24 18:00 History timolol maleate 0.5 % eye drops 1 drp ophthalmic (eye) DAILY 11/20/21 05/22/24 05/22/24 06:00 History tramadol 50 mg tablet 1 tab PO BID PRN Pain, Moderate 11/20/21 05/22/24 05/22/24 06:00 History aspirin 81 mg tablet,delayed 81 mg PO DAILY 04/18/23 05/22/24 05/22/24 06:00 History release nitroglycerin 0.4 mg sublingual 0.4 mg sublingual Q5M PRN Chest 04/18/23 05/22/24 Unknown History tablet Pain albuterol sulfate 90 mcg/actuation 2 puff inhalation Q4H PRN wheezing 12/14/23 05/22/24 Unknown History aerosol inhaler (Ventolin HFA) Oxygen Home Use 12/23/23 04/15/24 04/14/24 History nebulizers 12/23/23 04/15/24 04/14/24 History empagliflozin 10 mg tablet 10 mg PO DAILY 04/15/24 05/22/24 05/22/24 06:00 History (Jardiance) insulin glargine 100 unit/mL (3 20 unit subcut BEDTIME 04/15/24 05/22/24 05/21/24 18:00 History mL) subcutaneous pen (Lantus Solostar U-100 Insulin) metoprolol tartrate 50 mg tablet 50 mg PO BID 04/15/24 05/22/24 05/22/24 06:00 History warfarin 5 mg tablet 5 mg PO DAILY@1800 04/15/24 05/22/24 05/21/24 18:00 History diltiazem HCl 240 mg 240 mg PO DAILY 05/11/24 05/22/24 05/22/24 06:00 History capsule,extended release 24 hr albuterol sulfate 2.5 mg/3 mL 2.5 mg inhalation Q4H PRN 05/22/24 05/22/24 Unknown History (0.083 %) solution for nebulization shortness of breath or wheezing omeprazole 20 mg capsule,delayed 20 mg PO DAILY@0630 05/22/24 05/22/24 05/22/24 06:30 History release Physical Exam Vital Signs: Vital Signs: Last Vital Signs Temp 96.8 F 05/23/24 07:05 Pulse 63 05/23/24 07:49 Resp 16 05/23/24 07:05 BP 138/63 05/23/24 07:49 Pulse Ox 93 05/23/24 07:05 O2 Del Method Oxymask 05/23/24 07:05 O2 Flow Rate 7 05/23/24 07:05 Oxygen Flow Rate 8 05/22/24 12:36 BMI result Body Mass Index 24.9 Const: General: alert HEENT: Head: Yes normocephalic Neck: Neck: Yes normal visual inspection, Yes full ROM and Yes no lymphadenopathy Chest: Chest palpation & inspection: normal inspection of the chest Resp: Effort & Inspection: normal respiratory effort Auscultation: no rhonchi and diminished lung sounds Cardio: Rate: regular rate Rhythm: regular rhythm Heart sounds: S1 normal heart sound present and S2 normal heart sound present GI: Palpation (GI): Soft to palpation and nontender Auscultation: normal bowel sounds Skin: General skin exam: no rashes or lesions noted Extrem: General: Yes clubbing and No cyanosis Results Laboratory Findings 05/23/24 05:49 05/23/24 05:49 ABG, PT/INR, D-dimer: PT/INR, D-dimer PT 24.1 SEC (11.1-13.3) H 05/23/24 05:49 INR 2.0 (0.9-1.1) H 05/23/24 05:49 Abnormal lab findings: Abnormal Labs 05/22/24 05/22/24 05/22/24 12:54 12:56 17:13 WBC 13.1 H Hgb 12.3 L Hct 39.6 L MCH 25.9 L MCHC RDW 18.4 H Neut % (Auto) 85.0 H Lymph % (Auto) 9.6 L [place] % (Auto) Abs Immat Gran (auto) 0.05 H Absolute Neuts (auto) 11.1 H Absolute Nucleated RBC 0.030 H PT 23.4 H D INR 1.9 H VBG pH 7.44 H VBG HCO3 29 H Sodium BUN 33 H Creatinine 1.70 H POC Glucose 159 H Random Glucose 148 H B-Natriuretic Peptide 945 H 05/23/24 05:49 WBC Hgb 12.7 L Hct 41.1 L MCH 25.8 L MCHC 30.9 L RDW 18.6 H Neut % (Auto) Lymph % (Auto) 18.6 L [place] % (Auto) 11.2 H Abs Immat Gran (auto) 0.04 H Absolute Neuts (auto) Absolute Nucleated RBC PT 24.1 H INR 2.0 H VBG pH VBG HCO3 Sodium 147 H BUN 27 H Creatinine 1.59 H POC Glucose Random Glucose B-Natriuretic Peptide Assessment and Plan (1) Acute and chronic respiratory failure: Qualifiers: Respiratory failure complication: hypoxia Qualified Code(s): J96.21 - Acute and chronic respiratory failure with hypoxia Status: Acute (2) Pulmonary hypertension: Status: Acute (3) COPD (chronic obstructive pulmonary disease): Qualifiers: COPD type: emphysema Emphysema type: centrilobular Qualified Code(s): J43.2 - Centrilobular emphysema Status: Acute (4) IPF (idiopathic pulmonary fibrosis): Status: Acute Plan The patient is presenting with worsening hypoxia. His baseline oxygen needs very between 4 and 5 L oxygen. I did personally review the CT scan of his chest did compared to the CT scan he had back in November I do not see much difference from the interstitial standpoint. Does have some thickening of the major fissure and possibly volume overloaded. Indeed the new medication is the vasodilators therapy for the pulmonary hypertension. This can also cause increase space and hence worsening hypoxia. Recommendations Awaiting serology respiratory viral panel Increase prednisone to 40 mg daily to treat his underlying interstitial lung disease Continue diuresis as tolerated keep negative Titrate oxygen to maintain a pulse ox above 90%. Patient is having hard time with the oxygen tanks because of their weight. Would have to discuss with the [employer] company options once he is discharged Procedures Date of Service Date of Service: 05/23/24
[2024-05-23] MEDS: predniSONE 20 MG TABLET 40 MG PO (09:40)
--- NOTE | 2024-05-23 10:29 | MHC.CM.PN ---
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
[2024-05-23 11:31] LABS: Glucose, Whole Blood 134 mg/dL (60-115)
[2024-05-23 12:41] LABS: Adenovirus PCR Not Detected (Not Detect.); Bordetella parapertussis PCR Not Detected (Not Detect.); Bordetella pertussis PCR Not Detected (Not Detect.); Chlamydia pneumoniae PCR Not Detected (Not Detect.); Coronavirus 229E PCR Not Detected (Not Detect.); Coronavirus HKU1 PCR Not Detected (Not Detect.); Coronavirus NL63 PCR Not Detected (Not Detect.); Coronavirus OC43 PCR Not Detected (Not Detect.); Human metapneumovirus PCR Not Detected (Not Detect.); Influenza A PCR Not Detected (Not Detect.); Influenza B PCR Not Detected (Not Detect.); SARS-CoV-2 PCR Not Detected (Not Detect.)
[2024-05-23 12:42] LABS: Mycoplasma pneumoniae PCR Not Detected (Not Detect.); Parainfluenza 1 PCR Not Detected (Not Detect.); Parainfluenza 2 PCR Not Detected (Not Detect.); Parainfluenza 3 PCR Not Detected (Not Detect.); Parainfluenza 4 PCR Not Detected (Not Detect.); RSV PCR Not Detected (Not Detect.); Rhino/Enterovirus PCR Not Detected (Not Detect.)
--- NOTE | 2024-05-23 12:45 | P.PNIM_ITS ---
Subjective Subjective Date of Service: 05/23/24 Interval History: Breathing somewhat improved overnight. No acute distress Review of Systems Denies chest pain Admits to shortness of breath which is now at baseline Denies nausea vomiting diarrhea Denies fever chills Physical Exam 2 Vital Signs: Vital Signs: Last Vital Signs Temp 96.8 F 05/23/24 07:05 Pulse 63 05/23/24 07:49 Resp 16 05/23/24 07:05 BP 138/63 05/23/24 07:49 Pulse Ox 93 05/23/24 07:05 O2 Del Method Oxymask 05/23/24 07:05 O2 Flow Rate 7 05/23/24 07:05 Oxygen Flow Rate 8 05/22/24 12:36 BMI result Body Mass Index 24.9 Const: Other: Awake alert oriented x3 no acute distress Resp: Other: Diminished throughout with faint crackles left base Cardio: Other: No S4; positive S1-S2; no S3 murmurs rubs or gallops GI: Other: Soft nontender nondistended normoactive bowel sounds Extrem: Other: No edema bilaterally Objective Data Active Medications Acetaminophen (Acetaminophen 325 Mg Tablet) 650 mg PO Q6H PRN PRN Reason: Pain, Mild (Pain Scale 1-3), fever or headache Albuterol Sulfate (Albuterol Sulfate 90 Mcg 8 Gm Inhaler) 2 puff INHALE Q4H PRN PRN Reason: wheezing Albuterol/Ipratropium (Albuterol/Iprat 2.5/0.5mg 3 Ml Ampul.Neb) 3 ml INHALE RQ4H WHILE AWAKE PRN PRN Reason: Shortness of Breath/Wheezing Aspirin (Aspirin Enteric Coated 81 Mg Tablet.) 81 mg PO DAILY [facility] Last Admin: 05/23/24 07:49 Dose: 81 mg Documented By: JIMBO Atorvastatin Calcium (Atorvastatin Calcium 40 Mg Tablet) 40 mg PO BEDTIME [facility] Last Admin: 05/22/24 20:54 Dose: 40 mg Documented By: REMY Bumetanide (Bumetanide 1 Mg Tablet) 1 mg PO BID [facility]; Protocol Last Admin: 05/23/24 07:47 Dose: 1 mg Documented By: JIMBO Calcium Carbonate (Calcium Carbonate 750 Mg Tab.Chew) 750 mg PO Q4H PRN PRN Reason: Heartburn Diltiazem HCl (Diltiazem Hcl Cd 240 Mg Cap.Er.Deg) 240 mg PO DAILY [facility]; Protocol Last Admin: 05/23/24 07:49 Dose: 240 mg Documented By: JIMBO Empagliflozin (Empagliflozin 10 Mg Tablet) 10 mg PO DAILY [facility] Last Admin: 05/23/24 07:49 Dose: 10 mg Documented By: JIMBO Folic Acid (Folic Acid 1 Mg Tablet) 1 mg PO DAILY [facility] Last Admin: 05/23/24 07:48 Dose: 1 mg Documented By: JIMBO Glucose (Glucose Gel 15 Gm Gel..Gram.) 15 gm PO Q15M PRN; Protocol PRN Reason: per Hypoglycemia Standing Ord. Ceftriaxone Sodium 1 gm/ (Sodium Chloride) 50 mls @ 100 mls/hr IV Q24H [facility] Last Infusion: 05/22/24 15:55 Dose: Infused Documented By: GRICEL Doxycycline Hyclate 100 mg/ (Sodium Chloride) 250 mls @ 166.67 mls/hr IV Q12H [facility] Last Infusion: 05/23/24 04:21 Dose: Infused Documented By: REMY Dextrose (D10) 250 mls @ 750 mls/hr IV Q15M PRN; Protocol PRN Reason: per Hypoglycemia Standing Ord. Insulin Glargine (Insulin Glargine,Hum.Rec.Anlog 100 Unit/Ml 10 Ml Vial) 15 unit SUBCUT BEDTIME [facility] Last Admin: 05/22/24 20:56 Dose: 15 unit Documented By: REMY Insulin Human Lispro (Insulin Lispro 100 Unit/Ml 3 Ml Vial) 0 unit SUBCUT QIDACHS [facility]; Protocol Last Admin: 05/23/24 11:52 Dose: Not Given Documented By: JIMBO Non-Admin Reason: No Insulin Coverage Magnesium Hydroxide (Milk Of Magnesia 30 Ml Oral.Susp) 30 ml PO DAILY PRN PRN Reason: Constipation Melatonin (Melatonin 3 Mg Tablet) 6 mg PO BEDTIME PRN PRN Reason: Insomnia Metoprolol Tartrate (Metoprolol Tartrate 50 Mg Tablet) 50 mg PO BID [facility]; Protocol Last Admin: 05/23/24 07:48 Dose: 50 mg Documented By: JIMBO Omeprazole (Omeprazole 20 Mg Capsule.) 20 mg PO DAILY@0630 [facility] Last Admin: 05/23/24 05:37 Dose: 20 mg Documented By: REMY Prednisone (Prednisone 20 Mg Tablet) 40 mg PO DAILY [facility] Last Admin: 05/23/24 09:40 Dose: 40 mg Documented By: JIMBO Sacubitril/Valsartan (Sacubitril/Valsartan 49/51 1 Tab Tablet) 1 tab PO BID [facility]; Protocol Last Admin: 05/23/24 07:48 Dose: 1 tab Documented By: JIMBO Sildenafil Citrate (Sildenafil Citrate 20 Mg Tablet) 20 mg PO TID [facility] Last Admin: 05/23/24 07:50 Dose: 20 mg Documented By: JIMBO Sodium Chloride (0.9 % Sodium Chloride Flush 3 Ml Syringe) 3 ml IVFLUSH QSHIFT [facility] Last Admin: 05/23/24 07:47 Dose: 3 ml Documented By: JIMBO Timolol Maleate (Timolol Maleate 0.5 % Oph [place] 5 Ml Drbtl) 1 drop EYE-BOTH DAILY [facility] Tramadol HCl (Tramadol Hcl 50 Mg Tablet) 50 mg PO BID PRN PRN Reason: Pain, Moderate Last Admin: 05/22/24 20:55 Dose: 50 mg Documented By: REMY Warfarin Sodium (Warfarin Sodium 5 Mg Tablet) 5 mg PO DAILY@1800 [facility] Last Admin: 05/22/24 18:31 Dose: 5 mg Documented By: TALIB Labs 05/23/24 05:49 05/23/24 05:49 Labs: Laboratory Results - last 24 hr 05/22/24 05/22/24 05/22/24 12:54 12:56 17:13 MCV 83.4 MCH 25.9 L MCHC 31.1 RDW 18.4 H Plt Count 245 MPV 10.0 Immature Gran % (Auto) 0.4 Neut % (Auto) 85.0 H Lymph % (Auto) 9.6 L [place] % (Auto) 4.7 Eos % (Auto) 0.1 Baso % (Auto) 0.2 Lymph # (Auto) 1.3 [place] # (Auto) 0.6 Eos # (Auto) 0.0 Baso # (Auto) 0.0 Abs Immat Gran (auto) 0.05 H Absolute Neuts (auto) 11.1 H Absolute Nucleated RBC 0.030 H Nucleated RBC % (auto) 0.2 PT 23.4 H D INR 1.9 H VBG pH 7.44 H VBG pCO2 42 VBG pO2 37 VBG HCO3 29 H VBG O2 Saturation 48.0 VBG Base Excess 5.1 Anion Gap 17 Estim Creat Clear Calc 37.5 Estimated GFR 39 POC Glucose 159 H Random Glucose 148 H Lactic Acid 1.5 Calcium 9.5 Magnesium 2.3 Total Bilirubin 0.6 Direct Bilirubin 0.2 AST 19 ALT 30 Alkaline Phosphatase 81 Troponin I High Sens 10.3 B-Natriuretic Peptide 945 H Total Protein 7.8 Albumin 3.9 Respiratory Panel Spence Adenovirus (Rapid PCR) B.pert (TEM-PCR) B.parapertussis DNA PCR C. pneumoniae DNA (PCR) Coronavirus OC43 (PCR) Coronavirus HKU1 (PCR) Coronavirus 229E (PCR) COVID-19 (ZACK) Negative COVID-19 Clin Com See Note Coronavirus NL63 (PCR) Human Metapneumovir PCR Influenza Type A (JACOB) Negative Influenza A (RT-PCR) Influenza Type B (JACOB) Negative Influenza B (RT-PCR) Influenza A & B Note See Note M. pneumoniae (PCR) Parainfluenza 1 (PCR) Parainfluenza 2 (PCR) Parainfluenza 3 (PCR) Parainfluenza 4 (PCR) RSV (PCR) Entero/Rhino (PCR) SARS-CoV-2 RNA (RT-PCR) 05/22/24 05/22/24 05/22/24 17:15 19:15 20:53 MCV MCH MCHC RDW Plt Count MPV Immature Gran % (Auto) Neut % (Auto) Lymph % (Auto) [place] % (Auto) Eos % (Auto) Baso % (Auto) Lymph # (Auto) [place] # (Auto) Eos # (Auto) Baso # (Auto) Abs Immat Gran (auto) Absolute Neuts (auto) Absolute Nucleated RBC Nucleated RBC % (auto) PT INR VBG pH VBG pCO2 VBG pO2 VBG HCO3 VBG O2 Saturation VBG Base Excess Anion Gap Estim Creat Clear Calc Estimated GFR POC Glucose 112 108 Random Glucose Lactic Acid Calcium Magnesium Total Bilirubin Direct Bilirubin AST ALT Alkaline Phosphatase Troponin I High Sens B-Natriuretic Peptide Total Protein Albumin Respiratory Panel Spence See Note Adenovirus (Rapid PCR) Not Detected B.pert (TEM-PCR) Not Detected B.parapertussis DNA PCR Not Detected C. pneumoniae DNA (PCR) Not Detected Coronavirus OC43 (PCR) Not Detected Coronavirus HKU1 (PCR) Not Detected Coronavirus 229E (PCR) Not Detected COVID-19 (ZACK) COVID-19 Clin Com Coronavirus NL63 (PCR) Not Detected Human Metapneumovir PCR Not Detected Influenza Type A (JACOB) Influenza A (RT-PCR) Not Detected Influenza Type B (JACOB) Influenza B (RT-PCR) Not Detected Influenza A & B Note M. pneumoniae (PCR) Not Detected Parainfluenza 1 (PCR) Not Detected Parainfluenza 2 (PCR) Not Detected Parainfluenza 3 (PCR) Not Detected Parainfluenza 4 (PCR) Not Detected RSV (PCR) Not Detected Entero/Rhino (PCR) Not Detected SARS-CoV-2 RNA (RT-PCR) Not Detected 05/23/24 05/23/24 05/23/24 05:49 07:02 11:22 MCV 83.5 MCH 25.8 L MCHC 30.9 L RDW 18.6 H Plt Count 262 MPV 10.1 Immature Gran % (Auto) 0.4 Neut % (Auto) 68.3 Lymph % (Auto) 18.6 L [place] % (Auto) 11.2 H Eos % (Auto) 0.9 Baso % (Auto) 0.6 Lymph # (Auto) 1.9 [place] # (Auto) 1.1 Eos # (Auto) 0.1 Baso # (Auto) 0.1 Abs Immat Gran (auto) 0.04 H Absolute Neuts (auto) 6.9 Absolute Nucleated RBC 0.000 Nucleated RBC % (auto) 0.0 PT 24.1 H INR 2.0 H VBG pH VBG pCO2 VBG pO2 VBG HCO3 VBG O2 Saturation VBG Base Excess Anion Gap 18 Estim Creat Clear Calc 40.1 Estimated GFR 42 POC Glucose 85 134 H Random Glucose 75 Lactic Acid Calcium 9.8 Magnesium Total Bilirubin Direct Bilirubin AST ALT Alkaline Phosphatase Troponin I High Sens B-Natriuretic Peptide Total Protein Albumin Respiratory Panel Spence Adenovirus (Rapid PCR) B.pert (TEM-PCR) B.parapertussis DNA PCR C. pneumoniae DNA (PCR) Coronavirus OC43 (PCR) Coronavirus HKU1 (PCR) Coronavirus 229E (PCR) COVID-19 (AZCK) COVID-19 Clin Com Coronavirus NL63 (PCR) Human Metapneumovir PCR Influenza Type A (JACBO) Influenza A (RT-PCR) Influenza Type B (JACOB) Influenza B (RT-PCR) Influenza A & B Note M. pneumoniae (PCR) Parainfluenza 1 (PCR) Parainfluenza 2 (PCR) Parainfluenza 3 (PCR) Parainfluenza 4 (PCR) RSV (PCR) Entero/Rhino (PCR) SARS-CoV-2 RNA (RT-PCR) Assessment and Plan (1) Acute respiratory failure with hypoxia: Status: Resolved (2) Acute and chronic respiratory failure with hypoxia: Status: Resolved (3) Paroxysmal atrial fibrillation: Status: Acute Plan 78-year-old male with past medical history of HFpEF s/p CardioMEMS, Pulmonary HTN/cor Pulmonale, IPF, ashmta/COPD on 4 liters of O2 at baseline, PAF on coumdin, RA on chronic steroid (prednisone 7.5/d), type 2 dm, HTN admitted for acute hypoxemic respiratory failure. 1.Acute on chronic hypoxemic respiratory failure -continue empiric ceftriaxone/doxycycline (2) -continue Bumex as ordered -continue supplemental O2, maintain sats greater than or equal to 90% 2.HFrEF -stable and well compensated -continue current therapies -adjust as clinically indicated 3.Paroxysmal atrial fibrillation -acceptable rate control -continue Coumadin as ordered 4.Insulin depedent type 2 diabetes -acceptable control on current therapies -lispro correctional scale -adjust as indicated #RA -continue prednisone 5.HTN -acceptable control on current therapies -continue metoprolol, entresto, cardizem 6.CKDstage 3b -renals @ baseline -follow renal/divalents coumadin Full code Requires ongoing hospitalization for titration of 0 2 and IV antibiotics to treat acute on chronic respiratory failure along with specialist consultation and follow-up Quality Stroke Does the patient have a stroke diagnosis?: No VTE Prior VTE?: No VTE Risk Level:: Medical - moderate - high VTE Device Contraindication: Treatment Not Indicated VTE Drug Contraindication: N/A - Med Ordered
[2024-05-23] MEDS: timoloL maleate 0.5 % Oph Sol 5 ML DRBTL 1 DROP EYE-BOTH (13:01)
[2024-05-23] MEDS: cefTRIAXone sodium 1 GM in 0.9 % Sodium Chloride 50 ML IV (14:36)
[2024-05-23 16:00] LABS: Glucose, Whole Blood 180 mg/dL (60-115)
[2024-05-23] MEDS: Insulin Lispro 100 UNIT/ML 3 ML VIAL SUBCUT ×2 (16:18→20:41)
[2024-05-23] MEDS: Warfarin Sodium 5 MG TABLET PO (16:45)
[2024-05-23 19:56] LABS: Glucose, Whole Blood 164 mg/dL (60-115)
[2024-05-23] MEDS: Atorvastatin Calcium 40 MG TABLET PO (20:38)
[2024-05-23] MEDS: Insulin Glargine,Hum.rec.anlog 100 UNIT/ML 10 ML VIAL 15 UNIT SUBCUT (20:40)
[2024-05-24 04:00] VITALS: BP 158/66; PULSE 60; RESP 20; TEMP 36.1; O2SAT 94
[2024-05-24] MEDS: Doxycycline Hyclate 100 MG in 0.9 % Sodium Chloride 250 ML 166.67 MG IV (05:05)
[2024-05-24] MEDS: Omeprazole 20 MG CAPSULE.DR PO (06:12)
[2024-05-24 06:14] LABS: INTERNATIONAL NORM RATIO 2.3 (0.9-1.1); MANUAL DIFF FLAG NO; Prothrombin Time 28.6 SEC (11.1-13.3)
[2024-05-24 06:21] LABS: Basophils Percent Auto 0.2 % (0-2); Eosinophils Percent Auto 0.1 % (0-4); Hemoglobin 12.8 g/dl (14.0-18.0); Imm Gran Abs Auto 0.06 X10*3/uL (0.00-0.03); Imm Gran Pct Auto 0.5 % (0.0-0.4); Lymphocytes Absolute Auto 2.1 X10*3/uL (1.2-4.9); Lymphocytes Percent Auto 15.9 % (20-40); Mean Corpuscular HGB Conc 30.5 g/dl (31.0-36.0); Mean Corpuscular Hemoglobin 25.4 pg (27.0-33.0); Mean Corpuscular Volume 83.3 fL (80.0-98.0); Mean Platelet Volume 9.9 fL (9.4-12.4); Monocytes Absolute Auto 1.2 X10*3/uL (0.1-1.2); Neutrophils Absolute Auto 9.7 x10*3/uL (2.0-8.3); Neutrophils Percent Auto 74.3 % (45-73); Platelet Count 302 X10*3/uL (160-400); Red Blood Count 5.04 X10*6/uL (4.60-5.80); Red Cell Distribution Width 18.2 % (11.0-16.0)
[2024-05-24 06:48] LABS: Alanine Aminotransferase 19 U/L (0-40); Albumin Level 3.9 g/dL (3.5-5.0); Alkaline Phosphatase 71 U/L (39-117); Anion Gap 16 (12-20); Aspartate Amino Transferase 12 U/L (5-37); Bilirubin Total 0.6 mg/dL (0.0-1.0); Blood Urea Nitrogen 29 mg/dL (9-16); Calcium 9.7 mg/dL (8.4-10.2); Carbon Dioxide 27 mmol/L (22-29); Chloride 104 mmol/L (96-108); Creatinine Clr Calc Pharmacy 43.1; Estimated Glomerular Filt Rate 46; Glucose Fasting 88 mg/dL (60-99); Potassium 3.6 mmol/L (3.3-5.1); Sodium 143 mmol/L (135-145); Total Protein 7.8 g/dL (6.5-8.0)
[2024-05-24 07:29] VITALS: BP 159/70; PULSE 69; RESP 18; TEMP 36.3; O2SAT 95
[2024-05-24 08:05] VITALS: BP 159/70
[2024-05-24] MEDS: Sacubitril/Valsartan 49/51 1 TAB TABLET PO (08:05)
[2024-05-24] MEDS: timoloL maleate 0.5 % Oph Sol 5 ML DRBTL 1 DROP EYE-BOTH (08:05)
[2024-05-24] MEDS: Sildenafil Citrate 20 MG TABLET PO (08:05)
[2024-05-24] MEDS: Folic Acid 1 MG TABLET PO (08:05)
[2024-05-24] MEDS: 0.9 % Sodium Chloride Flush 3 ML SYRINGE IVFLUSH (08:05)
[2024-05-24] MEDS: Aspirin Enteric Coated 81 MG TABLET.DR PO (08:05)
[2024-05-24 08:06] VITALS: BP 159/70; PULSE 69
[2024-05-24] MEDS: Bumetanide 1 MG TABLET PO (08:06)
[2024-05-24] MEDS: predniSONE 20 MG TABLET 40 MG PO (08:06)
[2024-05-24] MEDS: Metoprolol Tartrate 50 MG TABLET PO (08:06)
[2024-05-24] MEDS: dilTIAZem HCL CD 240 MG CAP.ER.DEG PO (08:06)
[2024-05-24] MEDS: Empagliflozin 10 MG TABLET PO (08:06)
[2024-05-24 08:56] LABS: Glucose, Whole Blood 99 mg/dL (60-115)
[2024-05-24 09:51] VITALS: O2SAT 93
[2024-05-24 11:03] LABS: Glucose, Whole Blood 131 mg/dL (60-115)
--- NOTE | 2024-05-24 14:19 | W.MHC.F2F ---
Service Date Service Date: 05/24/24 Encounter Date of encounter: 05/24/24 Reasons for Services Signs and symptoms assessed: Shortness of breath Reason for chcf: teach disease management Reason for physical therapy: home safety and mobility Homebound: Leaving the home is medically contraindicated at this time without the asist of a device and/or another person due th the listed conditions above and below. Reason homebound: weakness related to hospital stay Certification: Based on the above findings, I certify that this patient is confined to the home and needs intermittent chcf care, physical therapy and/or speech therapy, or continues to need occupational therapy. The patient is under my care, and I have initiated the establishment of the plan of care. The patient will be followed by a physician who will periodically review the plan of care. Time Spent With Patient Time: Total time managing care of this patient today ____ minutes.
--- NOTE | 2024-05-24 14:22 | P.DS_ITS ---
DS: Providers Provider Date of Service: 05/24/24 Date of admission: 05/22/24 15:25 Primary care physician: Moris Machado III, MD Consults: 05/22/24 15:25 Consult to Pulmonology Routine Consulting Provider: [facility] Reason for consultation: hypoxemic respiratory failure DS: Diagnosis Discharge Diagnosis (1) Acute respiratory failure with hypoxia: Status: Resolved (2) Acute and chronic respiratory failure with hypoxia: Status: Resolved (3) Paroxysmal atrial fibrillation: Status: Acute DS: Summary Hospital Course Hospital Course: History of presenting illness: Date of Service: 05/22/24 Attending physician on admission: Major Davis Chief Complaint: hypoxia 78-year-old male with past medical history of HFpEF s/p CardioMEMS, Pulmonary HTN/cor Pulmonale, IPF, ashmta/COPD on 4 liters of O2 at baseline, PAF on coumdin, RA on chronic steroid (prednisone 7.5/d), type 2 dm, HTN presented to the ED earlier today from endrocrinology where his O2 sat was found to be in the low 70s. He reports he does have some dodd but is otherwise comfortble. He does endorse productive cough with yellow sputum ongoing 3-4 days. No fevers, chills, st, congestion, abd pain, n/v/d, wheezing, lightheadedness, weight gain, orthopnea, or chest pain. He has chronic ble edema and denies any acute worsening. In the ambulance was requiring 15L on nonrebreather to maintain 90%. No one sick at home. Since arrival, vitals otherwise stable, continues on 13L O2 to maintain oximetry 88-90%. He has a leukocytosis of 13.1. Renal function consistent with baseline, lytes wnl. Lactic acid 1.5. Trop 10.3, BNP 945. VBG reassuring with ph 7.44, pc02 42, bicarb 29. Negative for covid/flu/rsv. cxr reflects chronic changes. CT chest pending. EKG shows NSR with premature supraventicular conplexes, rate 71, no sachin/depressions. In the ED, received 40mg lasix. Hospital course: 78-year-old male with past medical history of HFpEF s/p CardioMEMS, Pulmonary HTN/cor Pulmonale, IPF, ashmta/COPD on 4 liters of O2 at baseline, PAF on coumdin, RA on chronic steroid (prednisone 7.5/d), type 2 dm, HTN admitted for acute hypoxemic respiratory failure, likely due to underlying pulmonary hypertension and idiopathic pulmonary fibrosis CT scan of chest showed no acute abnormality, but showed thickening of the major fissure and possibly volume overload, patient treated with steroids, respiratory viral panel was negative ,patient evaluated by pulmonology they recommend to treat patient with steroids and diuretics, patient responded well to above treatment oxygenation improved currently on 5 L of oxygen with finger oximetry 93% therefore being discharged home with 5 L of oxygen via Oxymizer and with a long extension cord for oxygen, he is recommended to continue all home medication except dose prednisone increased to 40 mg with slow taper recommend outpatient follow-up with pulmonology, and resume home dose of prednisone 7.5 mg daily after prednisone taper.. History of heart failure with preserved EF with mild acute exacerbation treated with IV Lasix recommend to continue Bumex. Paroxysmal atrial fibrillation stable INR continue Coumadin, beta-blockers and Cardizem. HTN recommend to continue metoprolol, entresto, cardizem. CKD stage 3b stable renal function. Time Attestation Discharge Coordination Time (in mins): 36 Quality: Safe Use of Opioids Does Pt have an Active Cancer Diagnosis on the Problem List?: No Quality: Stroke Does the patient have a stroke diagnosis?: No Physical Exam Vital Signs: Vital Signs: Last Vital Signs Temp 97.3 F 05/24/24 07:29 Pulse 69 05/24/24 08:06 Resp 18 05/24/24 07:29 BP 159/70 H 05/24/24 08:06 Pulse Ox 93 05/24/24 09:51 O2 Del Method Oxymask 05/24/24 09:51 O2 Flow Rate 5 05/24/24 09:51 Oxygen Flow Rate 8 05/22/24 12:36 BMI result Body Mass Index 24.9 Const: Other: General awake alert x3, resting comfortably in no acute distress. Neck supple no JVD. CVS regular rate rhythm, Respiratory lungs diminished breath sounds,no respiratory distress, no wheeze, no rhonchi. Gastrointestinal abdomen soft, non tender, bowel sounds audible, no guarding , no rigidity. Extremities no edema. Neuro non focal Psych appropriate affect DS: Data Data Completed and Pending Completed studies during hospitalization [Text1]: Procedures Assistance with Respiratory Ventilation, Less than 24 Consecutive Hours, Continuous Positive Airway Pressure (12/14/23) Labs on day of discharge: Laboratory Results - last 24 hr 05/23/24 05/23/24 05/24/24 15:40 19:51 05:00 WBC 13.0 H RBC 5.04 Hgb 12.8 L Hct 42.0 MCV 83.3 MCH 25.4 L MCHC 30.5 L RDW 18.2 H Plt Count 302 MPV 9.9 Immature Gran % (Auto) 0.5 H Neut % (Auto) 74.3 H Lymph % (Auto) 15.9 L [place] % (Auto) 9.0 Eos % (Auto) 0.1 Baso % (Auto) 0.2 Lymph # (Auto) 2.1 [place] # (Auto) 1.2 Eos # (Auto) 0.0 Baso # (Auto) 0.0 Abs Immat Gran (auto) 0.06 H Absolute Neuts (auto) 9.7 H Absolute Nucleated RBC 0.000 Nucleated RBC % (auto) 0.0 PT 28.6 H INR 2.3 H Sodium 143 Potassium 3.6 Chloride 104 Carbon Dioxide 27 Anion Gap 16 BUN 29 H Creatinine 1.48 H Estim Creat Clear Calc 43.1 Estimated GFR 46 POC Glucose 180 H 164 H Fasting Glucose 88 Calcium 9.7 Total Bilirubin 0.6 AST 12 ALT 19 Alkaline Phosphatase 71 Total Protein 7.8 Albumin 3.9 05/24/24 05/24/24 07:27 10:57 WBC RBC Hgb Hct MCV MCH MCHC RDW Plt Count MPV Immature Gran % (Auto) Neut % (Auto) Lymph % (Auto) [place] % (Auto) Eos % (Auto) Baso % (Auto) Lymph # (Auto) [place] # (Auto) Eos # (Auto) Baso # (Auto) Abs Immat Gran (auto) Absolute Neuts (auto) Absolute Nucleated RBC Nucleated RBC % (auto) PT INR Sodium Potassium Chloride Carbon Dioxide Anion Gap BUN Creatinine Estim Creat Clear Calc Estimated GFR POC Glucose 99 131 H Fasting Glucose Calcium Total Bilirubin AST ALT Alkaline Phosphatase Total Protein Albumin Preliminary micro results at discharge 05/22/24 12:54 Blood Culture - Preliminary Blood - Venous No growth after 24 hours. 05/22/24 12:54 Blood Culture - Preliminary Blood - Venous No growth after 24 hours. Discharge Plan Discharge Anticipated Discharge Date/Time: 05/24/24 12:43 Patient Disposition: Home Health Service Discharge Diagnosis: Acute on chronic hypoxic respiratory failure Referrals: [facility] [Outside] Moris Machado III, MD [Primary Care Provider] - 1 Week Discharge Medications: New prednisone 10 mg tablet 10 mg PO DIRECTED Qty: 60 0RF Rx Instructions: Take prednisone 40 mg daily for 5 days Then 30 mg daily for 5 days Then 20 mg daily for 5 days Then 10 mg daily for 5 days Then resume 7.5 mg daily as before Continued sildenafil (pulm.hypertension) [Revatio] 20 mg tablet 20 mg PO TID 30 Days Qty: 90 3RF Rx Instructions: administer doses at least 4-6 hours apart folic acid 400 mcg tablet 400 mcg PO DAILY tramadol 50 mg tablet 1 tab PO BID PRN (Reason: Pain, Moderate) timolol maleate 0.5 % drops 1 drp ophthalmic (eye) DAILY rosuvastatin 10 mg tablet 1 tab PO BEDTIME Humira(CF) Pen 40 mg/0.4 mL pen injector kit 40 mg subcut Q2W aspirin 81 mg Tablet,Delayed Release (Dr/Ec) 81 mg PO DAILY nitroglycerin 0.4 mg tablet, sublingual 0.4 mg sublingual Q5M PRN (Reason: Chest Pain) Entresto 49-51 mg Tablet 1 tab PO BID Qty: 30 1RF Protocol: Hold for SBP< HOLD for SBP < : 90 omeprazole 20 mg capsule,delayed release(DR/EC) 20 mg PO DAILY@0630 albuterol sulfate 2.5 mg /3 mL (0.083 %) solution for nebulization 2.5 mg inhalation Q4H PRN (Reason: shortness of breath or wheezing) Rx Instructions: J44.1 COPD with acute exacerbation. albuterol sulfate [Ventolin HFA] 90 mcg/actuation HFA aerosol inhaler 2 puff INHALATION Q4H PRN (Reason: wheezing) warfarin 5 mg tablet 5 mg PO DAILY@1800 metoprolol tartrate 50 mg tablet 50 mg PO BID Jardiance 10 mg tablet 10 mg PO DAILY insulin glargine [Lantus Solostar U-100 Insulin] 100 unit/mL (3 mL) insulin pen 20 unit subcut BEDTIME bumetanide 1 mg tablet 1 mg PO BID Qty: 60 5RF (DME) nebulizers Misc See Rx Instructions .Route Rx Instructions: As directed (DME) Oxygen Home Use Kit See Rx Instructions .Route Rx Instructions: As directed diltiazem HCl 240 mg capsule,extended release 24hr 240 mg PO DAILY Protocol: Hold for SBP/HR < HOLD for SBP < : 90 HOLD for HR < : 60 Discontinued prednisone 2.5 mg tablet 7.5 mg PO DAILY 30 Days Qty: 90 2RF Hold Instructions: Resume on 04/21/24. Discharge Orders: Discharge Order (Routine); Ordered 05/24/24 Ordered By: Black Forbes Diet: Advance to usual diet Activity on Discharge: As tolerated Stand Alone Forms: Patient Portal Discharge page Print Language: Bhutanese Care Plan Goals: Acute on chronic hypoxic respiratory failure resolved continue 5 L of oxygen via Oxymizer, continue Bumex home dose social acid Health Concerns: Heart failure take home medications Paroxysmal atrial fibrillation stable INR continue Coumadin Continue all home medication as before Plan of Treatment: Outpatient follow-up with primary care physician and pulmonology call for ap pointment Assessment: As above
== END 2024-05-24 14:42 | disposition home health service (06) | DRG 314 ==
LOC: HO.ED 15:10 → HO.EDOVER 15:43 → HO.S3 19:43
PROVIDERS: Hospitalist; Admitting Provider Physician Assistant; Emergency Provider Emergency Medicine; PCP Internal Medicine; Visit Provider Hospitalist
DX: I27.20 Pulmonary hypertension, unspecified (principal); J96.21 Acute and chronic respiratory failure with hypoxia; I13.0 Hypertensive heart and chronic kidney disease with heart failure and stage 1 through stage 4 chronic kidney disease, or unspecified chronic kidney disease; I50.22 Chronic systolic (congestive) heart failure; Z95.811 Presence of heart assist device; J45.909 Unspecified asthma, uncomplicated; J43.2 Centrilobular emphysema; J84.112 Idiopathic pulmonary fibrosis; N18.32 Chronic kidney disease, stage 3b; I48.0 Paroxysmal atrial fibrillation; M06.9 Rheumatoid arthritis, unspecified; E11.22 Type 2 diabetes mellitus with diabetic chronic kidney disease; Z20.822 Contact with and (suspected) exposure to COVID-19; Z99.81 Dependence on supplemental oxygen; Z87.891 Personal history of nicotine dependence; Z79.4 Long term (current) use of insulin; Z79.01 Long term (current) use of anticoagulants; Z79.52 Long term (current) use of systemic steroids; Z79.82 Long term (current) use of aspirin; Z79.899 Other long term (current) drug therapy
CPT/HCPCS: 36415; 71045; 71250; 80048; 80053; 80076; 82803; 82947; 83605; 83735; 83880; 84484; 85025; 85610; 87040; 87502; 87633; 87635; 93005; 99285; J0696; J1940

== ENCOUNTER → 2024-05-22 12:42 | Outpatient (BNV) | payer OTHER, SELFPAY | PROVIDERS: Admitting Provider Physician Assistant; Emergency Provider Emergency Medicine; PCP Internal Medicine; Visit Provider Internal Medicine Cardiovascular Disease | DX: R94.31 Abnormal electrocardiogram [ECG] [EKG] (principal) | CPT/HCPCS: 93010 ==

== ENCOUNTER → 2024-05-22 15:25 | Outpatient (BNV) | payer OTHER, SELFPAY | PROVIDERS: Admitting Provider Physician Assistant; Emergency Provider Emergency Medicine; PCP Internal Medicine; Visit Provider Physician Assistant | DX: J96.21 Acute and chronic respiratory failure with hypoxia (principal); I48.0 Paroxysmal atrial fibrillation | CPT/HCPCS: 99222; 99232; 99239; G0180 ==

== ENCOUNTER → 2024-05-22 15:25 | Outpatient (BNV) | payer OTHER, SELFPAY | PROVIDERS: Admitting Provider Physician Assistant; Emergency Provider Emergency Medicine; PCP Internal Medicine; Visit Provider Hospitalist | DX: J96.21 Acute and chronic respiratory failure with hypoxia (principal); I27.20 Pulmonary hypertension, unspecified; J43.2 Centrilobular emphysema; J84.112 Idiopathic pulmonary fibrosis | CPT/HCPCS: 99223 ==

== ENCOUNTER 2024-06-14 09:57 | Outpatient (AMB) | payer OTHER, SELFPAY ==
[2024-06-14 10:07] VITALS: BP 108/60; PULSE 60; O2SAT 89; BMI 24.7
--- NOTE | 2024-06-14 10:07 | A.OFFVIS_ITS ---
Vital Signs 06/14/24 10:07 Height 5 ft 11 in Weight 177 lb 7.554 oz BMI 24.7 BP 108/60 Blood Pressure Location Rt brachial Position Sitting Pulse 60 Pulse Source Doppler Pulse Oximetry (%) 89 L Oxygen Delivery Method Room Air Oxygen Flow Rate 4 Intake Visit Reasons: acute hypoxic resp failure Allergies No Known Allergies Allergy (Unknown, Verified 06/14/24 10:10) NOT APPLICABLE HPI Comments Details: The patient is 78-year-old gentleman with a known history of emphysema, interstitial lung disease along with severe pulmonary hypertension on hot oxygen requirements. He has been followed closely at [facility]. The patient was evaluated and placed on prednisone, initially starting at 10 mg and now 7.5 mg in part to treat the interstitial lung disease likely related to the underlying connective tissue disease. Recently he was admitted to the hospital worsening shortness of breath. He was treated appropriately. He did have a CT scan of the chest that I personally reviewed. He does have moderate to severe emphysema and also bilateral interstitial lung disease. No significant change when compared to 2020 which is reassuring that is not significantly progressive. However, patient also had an echocardiogram demonstrating very severe elevations in his pulmonary pressures with a very dilated RV concerning for potentially even higher pulmonary arterial pressures. During the visit we did go for brief walking oximetry in the patient did desaturate in the pulse oxygen that he came in with and at rest he did need 4 L continuous oxygen. Explained to him that the pulse does not work for him. He needs to be on continues oxygen and he is agreeable to this and will make arrangements with his [employer] company. In addition that with walking on 6 L he barely was able to keep a 88%. Therefore, I will request an Oxymizer pendant from his [employer] company in order to provide him enough oxygen. I do believe that his pulmonary hypertension is out of proportion to those pulmonary disease that he has. In his EF and left ventricular anatomy appears to be normal. Therefore, I do believe that considering a basal dilator to treat severe pulmonary hypertension that is out of proportion to his underlying pulmonary disease would be reasonable. The patient does have connective tissue disease which can predispose to group 1 pulmonary hypertension. 02/17/2024 the patient is here for a pulmonary follow-up visit. He has doing a little better. His oxygen requirements have decreased a little bit. No longer requires an Oxymizer pendant. Although the conserving device is not sufficient. He did come in with a pulse ox in the low 80s on his 3-4 L pulse. Therefore the patient needs to be on continues oxygen. We did provide him an operative tank poor continues oxygen at this time. He needs to use 2 L at rest and 3 L with activity. His degree of respiratory failure is primarily due to his pulmonary hypertension. He is severe pulmonary hypertension based on his echo with a very dilated RV. The patient was approved to start sildenafil. But, then his insurance changed and the patient was not aware and therefore he was not able to start the medication. He had a very abnormal echocardiogram. Again consistent with WHO group 1. therefore, we will request the patient started on sildenafil again will hopes that we can control his pulmonary hypertension in therefore decrease his significant oxygen requirements. Once the patient is on the vasodilators therapy we can repeat his 6 minute walk test in hopes that he can tolerate a conserving device and have an easier time carrying the oxygen. Also to note, the patient does have significant daytime drowsiness. Will go ahead and request an in-law his Teaberry score is elevated 10/21. Will request an in-lab sleep study at this time. 06/14/2024 the patient is here for pulmonary follow-up visit. Overall he was recently hospitalized with acute on chronic hypoxic respiratory failure. The patient did respond well to steroids. He currently is on 7.5 mg of prednisone. In addition to that he has been on the sildenafil for the pulmonary hypertension. While in the hospital he did have a CT scan of the chest that I did personally review with him in the family. He appears to have severe emphysema primarily in the upper lung zones and extensive interstitial lung disease at the lower lung zones consistent with pulmonary fibrosis in the diagnosis of combined pulmonary fibrosis and emphysema CPFE) he has a very dil ated pulmonary trunk consistent with pulmonary hypertension. At this point will continue him on the sildenafil 20 mg. Will request an echocardiogram prior to his next visit however. He does want have a portable oxygen concentrator. Explained to him that his oxygen requirements are too high. We did try him on 5 L pulse while resting his oxygen was only about 86%. He understands that he will need a continuous flow portable oxygen concentrator and does her not covered by the DME would have to be an [id number] expense be very expensive. I will talk to the [employer] company in order for him to get oxygen tanks prefilled because he is having hard time with filling station and also with the [id number] to be able to carry the the cylinder oxygen tanks with more ease. The patient does require 4 L of oxygen at rest and also requires up to 6 L with activity. 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) heart failure with preserved ejection fraction IPF (idiopathic pulmonary fibrosis) COPD (chronic obstructive pulmonary disease) Reactive airway disease Pulmonary hypertension Chronic respiratory failure CHF (congestive heart failure) ILD (interstitial lung disease) Acute exacerbation of CHF (congestive heart failure) SVT (supraventricular tachycardia) CHF exacerbation Chronic anticoagulation Atrial fibrillation Chronic hypoxemic respiratory failure Hypertension Rheumatoid arthritis Lymphadenopathy COPD exacerbation Surgical History Hx of colonoscopy Social History Household Members: Spouse Housing: House Do you presently have visiting nurse or other home services: No Alcohol intake: never Comment: patient rings appropriately Patient Tobacco Use Status: Former Tobacco user Tobacco use type: Cigarette Years Smoked: 40 e-Cigarette/Vaping Use: Former Use Second Hand Smoke Exposure: No Advance Directives Date on File: 06/27/23 service: No Current occupational status: retired Review of Systems Const All systems reviewed & are unremarkable except as noted in HPI and below Denies weakness ENT Denies dizziness Card Denies chest pain, Denies chest pain with activity, Denies syncope, Denies rapid heart rate, Denies pedal edema, Denies edema, Denies leg edema, Denies lightheadedness, Denies palpitations, Reports dyspnea, Reports dyspnea on exertion and Denies orthopnea Resp Denies cough, Reports dyspnea and Reports dyspnea on exertion GI Denies hematochezia and Denies change in stool character Musc Denies abnormal gait, Denies muscle cramps, Denies muscle weakness, Denies numbness, Denies radiating pain into limb and Denies tingling Neuro Denies abnormal gait, Denies dizziness, Denies syncope, Denies numbness, Denies tingling and Denies weakness Endo Denies palpitations Physical Exam Vital Signs: Last Vital Signs Pulse 60 06/14/24 10:07 BP 108/60 06/14/24 10:07 Pulse Ox 89 L 06/14/24 10:07 Oxygen Delivery Method Room Air 06/14/24 10:07 Oxygen Flow Rate 4 06/14/24 10:07 BMI result Body Mass Index 24.7 Last Vital Signs Temp 96.8 F 05/23/24 07:05 Pulse 63 05/23/24 07:49 Resp 16 05/23/24 07:05 BP 138/63 05/23/24 07:49 Pulse Ox 93 05/23/24 07:05 O2 Del Method Oxymask 05/23/24 07:05 O2 Flow Rate 7 05/23/24 07:05 Oxygen Flow Rate 8 05/22/24 12:36 BMI result Body Mass Index 24.9 Const General: alert HEENT Head: Yes normocephalic Neck Neck: Yes normal visual inspection, Yes full ROM and Yes no lymphadenopathy Chest Chest palpation & inspection: normal inspection of the chest Resp Effort & Inspection: normal respiratory effort Auscultation: rales, no rhonchi and diminished lung sounds Cardio Rate: regular rate Rhythm: regular rhythm Heart sounds: S1 normal heart sound present and S2 normal heart sound present GI Palpation (GI): Soft to palpation and nontender Auscultation: normal bowel sounds Skin General skin exam: no rashes or lesions noted Extrem General: Yes clubbing and No cyanosis Assessment & Plan Assessment & Plan (1) COPD (chronic obstructive pulmonary disease): Code(s): J44.9 - Chronic obstructive pulmonary disease, unspecified Category: Medical Qualifiers: COPD type: emphysema Emphysema type: centrilobular Qualified Code(s): J43.2 - Centrilobular emphysema (2) Chronic respiratory failure: Code(s): J96.10 - Chronic respiratory failure, unspecified whether with hypoxia or hypercapnia Category: Medical Qualifiers: Respiratory failure complication: hypoxia Qualified Code(s): J96.11 - Chronic respiratory failure with hypoxia (3) Pulmonary hypertension: Comment: WHO group 1 Code(s): I27.20 - Pulmonary hypertension, unspecified Category: Medical (4) ILD (interstitial lung disease): Code(s): J84.9 - Interstitial pulmonary disease, unspecified Category: Medical (5) Combined pulmonary fibrosis and emphysema (CPFE): Code(s): J43.9 - Emphysema, unspecified; J84.10 - Pulmonary fibrosis, unspecified Category: Medical Plan continue PD5 inhibitor for Pulmonary HTN Continue Breo JORGITO as needed Oxygen revision: 4L/min at rest, 6L/min with activity diuresis as tolerated increase prednisone 10mg ECHO F/U in 3 months Orders: Orders CA echo transthoracic complete 2 Months I27.20 - Pulmonary hypertension, unspecified Coding Level of Care Code Est Pt Level 5 (28587) Diagnoses Centrilobular emphysema J43.2 COPD type: emphysema Emphysema type: centrilobular Chronic respiratory failure with hypoxia J96.11 Respiratory failure complication: hypoxia Pulmonary hypertension I27.20 ILD (interstitial lung disease) J84.9 Combined pulmonary fibrosis and emphysema (CPFE) J43.9; J84.10 Time Spent (min) 30
== END 2024-06-14 10:49 | disposition home or self-care (01) ==
PROVIDERS: PCP Internal Medicine; Visit Provider Hospitalist
DX: J43.2 Centrilobular emphysema (principal); J96.11 Chronic respiratory failure with hypoxia; I27.20 Pulmonary hypertension, unspecified; J84.9 Interstitial pulmonary disease, unspecified; J43.9 Emphysema, unspecified; J84.10 Pulmonary fibrosis, unspecified
CPT/HCPCS: 99214

== ENCOUNTER → 2024-06-14 09:57 | Outpatient (BNVA) | payer OTHER, SELFPAY | PROVIDERS: PCP Internal Medicine; Visit Provider Hospitalist | DX: I27.20 Pulmonary hypertension, unspecified (principal); J43.2 Centrilobular emphysema; J96.11 Chronic respiratory failure with hypoxia; J84.9 Interstitial pulmonary disease, unspecified; J43.9 Emphysema, unspecified; J84.10 Pulmonary fibrosis, unspecified; Z99.81 Dependence on supplemental oxygen | CPT/HCPCS: 99212 ==

== ENCOUNTER → 2024-06-21 23:59 | Outpatient (BNV) | payer OTHER, SELFPAY ==
--- NOTE | 2024-06-22 17:26 | A.OFFVIS_ITS ---
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) heart failure with preserved ejection fraction IPF (idiopathic pulmonary fibrosis) COPD (chronic obstructive pulmonary disease) Reactive airway disease Pulmonary hypertension Chronic respiratory failure CHF (congestive heart failure) ILD (interstitial lung disease) Acute exacerbation of CHF (congestive heart failure) SVT (supraventricular tachycardia) CHF exacerbation Chronic anticoagulation Atrial fibrillation Chronic hypoxemic respiratory failure Hypertension Rheumatoid arthritis Lymphadenopathy COPD exacerbation Surgical History Hx of colonoscopy Social History Household Members: Spouse Housing: House Do you presently have visiting nurse or other home services: No Alcohol intake: never Comment: patient rings appropriately Patient Tobacco Use Status: Former Tobacco user Tobacco use type: Cigarette Years Smoked: 40 e-Cigarette/Vaping Use: Former Use Second Hand Smoke Exposure: No Advance Directives Date on File: 06/27/23 service: No Current occupational status: retired Office Procedures Cardiac Device Check Cardiac Device Check Details: Monitoring period dates: 05/22/24 - 06/21/24 Optimal PA pressure range: ADDY goal 45 mmhg Procedure code: 62491 BACKGROUND: Tommy is implanted with the CardioMEMS PA Sensor.? I use this technology to monitor PA pressures on a weekly basis to ensure patients are within their optimal range to prevent decompensation.? SUMMARY:? I utilized the remote monitoring platform ([employer]) to set optimal targets for pulmonary artery pressure thresholds as part of acute and chronic management of patient?s heart failure. During the period indicated above, I monitored the patient?s pulmonary artery pressures weekly via trend analysis and notification reports which provide alerts when patient?s PA pressures were outside of range to prompt immediate action in medication changes and communications.? The weekly reports are archived in the [employer] system which serve as a parallel record to document weekly PA pressures, medication changes, and clinical notes. I have reviewed readings on 05/23, 05/28, 06/01, 06/06, 06/11, 06/15, 06/21.. ADDY has ranged between 39-48mmhg and diuretics adjusted as needed. 49816 - Remote monitoring of wireless pulmonary artery pressure sensor Procedure code (CPT) selection complete Assessment & Plan Assessment & Plan (1) Presence of CardioMEMS HF system: Code(s): Z95.818 - Presence of other cardiac implants and grafts Category: Medical Plan: monthly report Coding Level of Care Code Procedure Only Diagnoses Presence of CardioMEMS HF system Z95.818 CPT Codes Cardiac Device Check - Cardiac Device 17: 63893 - Remote monitoring of wireless pulmonary artery pressure sensor ([id number])
== END ==
PROVIDERS: PCP Internal Medicine; Visit Provider Nurse Practitioner Family
DX: I50.9 Heart failure, unspecified (principal); Z95.818 Presence of other cardiac implants and grafts
CPT/HCPCS: 93264

== ENCOUNTER → 2024-07-23 23:59 | Outpatient (BNV) | payer OTHER, SELFPAY ==
--- NOTE | 2024-08-03 17:15 | A.OFFVIS_ITS ---
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) heart failure with preserved ejection fraction IPF (idiopathic pulmonary fibrosis) COPD (chronic obstructive pulmonary disease) Reactive airway disease Pulmonary hypertension Chronic respiratory failure CHF (congestive heart failure) ILD (interstitial lung disease) Acute exacerbation of CHF (congestive heart failure) SVT (supraventricular tachycardia) CHF exacerbation Chronic anticoagulation Atrial fibrillation Chronic hypoxemic respiratory failure Hypertension Rheumatoid arthritis Lymphadenopathy COPD exacerbation Surgical History Hx of colonoscopy Social History Household Members: Spouse Housing: House Do you presently have visiting nurse or other home services: No Alcohol intake: never Comment: patient rings appropriately Patient Tobacco Use Status: Former Tobacco user Tobacco use type: Cigarette Years Smoked: 40 e-Cigarette/Vaping Use: Former Use Second Hand Smoke Exposure: No Advance Directives Date on File: 06/27/23 service: No Current occupational status: retired Office Procedures Cardiac Device Check Cardiac Device Check Details: Monitoring period dates:06/22/24- 07/24/24 Optimal PA pressure range: ADDY 45mmhg Procedure code: 43446 BACKGROUND: Tommy is implanted with the CardioMEMS PA Sensor.? I use this technology to monitor PA pressures on a weekly basis to ensure patients are within their optimal range to prevent decompensation.? SUMMARY:? I utilized the remote monitoring platform ([employer]) to set optimal targets for pulmonary artery pressure thresholds as part of acute and chronic management of patient?s heart failure. During the period indicated above, I monitored the patient?s pulmonary artery pressures weekly via trend analysis and notification reports which provide alerts when patient?s PA pressures were outside of range to prompt immediate action in medication changes and communications.? The weekly reports are archived in the [employer] system which serve as a parallel record to document weekly PA pressures, medication changes, and clinical notes. I have reviewed readings on 06/23, 07/02, 07/09. 07/16, 07/23. His ADDY reading has ranged between 36- 56mmhg. His diuretics have been adjusted as needed. 55266 - Remote monitoring of wireless pulmonary artery pressure sensor Procedure code (CPT) selection complete Assessment & Plan Assessment & Plan (1) Presence of CardioMEMS HF system: Code(s): Z95.818 - Presence of other cardiac implants and grafts Category: Medical Plan: monthly report Coding Level of Care Code Procedure Only Diagnoses Presence of CardioMEMS HF system Z95.818 CPT Codes Cardiac Device Check - Cardiac Device 17: 85692 - Remote monitoring of wireless pulmonary artery pressure sensor ([id number])
== END ==
PROVIDERS: PCP Internal Medicine; Visit Provider Nurse Practitioner Family
DX: Z45.09 Encounter for adjustment and management of other cardiac device (principal)
CPT/HCPCS: 93264

== ENCOUNTER → 2024-08-15 09:47 | Outpatient (REF) | payer OTHER, SELFPAY ==
--- NOTE | 2024-08-15 09:52 | CA_ITS ---
Transthoracic Echocardiogram Patient (Last, First, Middle): Tommy Love, Gender: Male Date of : 1945 Age: 79 Procedure Date: 08/15/2024 Procedure Type: Transthoracic Echocardiogram Location: OP Height: 180.34 cm Weight: 80.74 kg BSA: 2.01 m2 Heart Rate: 67 bpm Program Services Planner: YENNI Referring MD: Shon Samson MD Rodding Anode Worker: Mann Mensah MD Symptoms: I27.20 - Pulmonary hypertension, unspecified Study Quality: Fair but adequate ECG Rhythm: Sinus Conclusions: - 1. Normal LV ejection fraction of 65-70% 2. Normal cardiac valvular Dopplers 3. Moderately elevated right ventricular systolic pressure and normal right atrial pressures Findings Left Ventricle Normal left ventricular size, thickness, and systolic function. The visually estimated ejection fraction is between 65-70%. Spectral Doppler is indicative of an impaired relaxation filling pattern. Right Ventricle Moderately increased right ventricular cavity size. There is normal right ventricular systolic function. Atria The left atrium is normal in size. Interatrial shunt cannot be excluded. The right atrium is mildly dilated. Aortic Valve The aortic valve structure and function is likely normal. There is no aortic valve stenosis. There is no aortic valve regurgitation. Mitral Valve Likely normal mitral valve structure and function. There is trace mitral valve regurgitation. There is no mitral valve stenosis. Pulmonic Valve The pulmonic valve is likely normal. Tricuspid Valve Likely normal tricuspid valve structure and function. There is mild tricuspid valve regurgitation. Normal right atrial pressure. Moderate pulmonary hypertension is present. Great Vessels All visible segments of the aorta are normal in size. The pulmonary artery was not well visualized. There is no dilatation of the ascending aorta measuring 3.30 cm. Venous The inferior vena cava is normal in size and collapses greater than 50% with inspiration. Pericardium/Pleural The pericardium was not well visualized. Prior Study Comparison Changes noted compared to prior study dated: 11/30/2023. RV systolic pressures improved Measurements 2D Linear Measurements IVSd: 0.97 0.6-0.9/0.6-1.0 cm LVIDd: 4.22 3.9-5.3/4.2-5.9 cm LVIDd Index: 2.10 2.4-3.2/2.2-3.1 cm/m2 LVIDs: 2.84 2.0-3.6 cm LA Diam: 4.20 2.7-3.8/3.0-4.0 cm LAIDs Index: 2.09 1.5-2.3 cm/m2 LVOT Diam: 2.10 3.0+(-)1.3 cm 2D Systolic Function EF 4C: 65.80 >55% EF 2C: 69.60 >55% EF BiP: 67.90 >55% Mitral Valve MV Pk E: 0.70 MV PK A: 0.81 MV Decel Time: 255.00 E/A: 0.90 E'Medial: 2.94 E/E' Med: 23.70 PHT: 75.00 MVA PHT: 2.93 Decel [place]: 2.74 Aortic Valve AoV Pk Timmy: 1.15 AoV Pk Grad: 5.00 JUAN: 3.46 LVOT LVOT Pk Timmy: 1.11 LVOT Mn Timmy: 0.83 LVOT VTI: 0.28 LVOT Pk Grad: 5.00 LVOT Mn Grad: 3.00 LVOT Diam: 2.10 LVOT Area: 3.46 Diastolic Function MV Pk E: 0.70 MV Pk A: 0.81 E/A: 0.90 E'Medial: 2.94 E/E' Med: 23.70 Right Ventricle TVS' Timmy: 7.83 Tricuspid Valve TR Pk Timmy: 3.39 TR Pk Grad: 46.00 RA Press: 3.00 RVSP: 49.00 Great Vessels Aorta Sinus of Valsalva: 3.40 2.0-3.5 cm Ao Asc: 3.30 2.1-3.4 cm Pulmonary Valve PV Pk Timmy: 0.74 Peak PV Grad: 2.00 Updated in Other Vendor System with Status of Final Mann Mensah MD electronically signed on 08/16/2024 12:36:51 PM with status of Final
== END ==
LOC: HO.CARD 09:47
PROVIDERS: PCP Internal Medicine; Visit Provider Hospitalist
DX: I27.20 Pulmonary hypertension, unspecified (principal)
CPT/HCPCS: 93306

== ENCOUNTER → 2024-08-15 09:52 | Outpatient (BNV) | payer OTHER, SELFPAY | PROVIDERS: PCP Internal Medicine; Visit Provider Internal Medicine Cardiovascular Disease | DX: I36.1 Nonrheumatic tricuspid (valve) insufficiency (principal); R93.1 Abnormal findings on diagnostic imaging of heart and coronary circulation | CPT/HCPCS: 93306 ==

== ENCOUNTER → 2024-08-23 23:59 | Outpatient (BNV) | payer OTHER, SELFPAY ==
--- NOTE | 2024-08-23 17:16 | A.OFFVIS_ITS ---
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) heart failure with preserved ejection fraction IPF (idiopathic pulmonary fibrosis) COPD (chronic obstructive pulmonary disease) Reactive airway disease Pulmonary hypertension Chronic respiratory failure CHF (congestive heart failure) ILD (interstitial lung disease) Acute exacerbation of CHF (congestive heart failure) SVT (supraventricular tachycardia) CHF exacerbation Chronic anticoagulation Atrial fibrillation Chronic hypoxemic respiratory failure Hypertension Rheumatoid arthritis Lymphadenopathy COPD exacerbation Surgical History Hx of colonoscopy Social History Household Members: Spouse Housing: House Do you presently have visiting nurse or other home services: No Alcohol intake: never Comment: patient rings appropriately Patient Tobacco Use Status: Former Tobacco user Tobacco use type: Cigarette Years Smoked: 40 e-Cigarette/Vaping Use: Former Use Second Hand Smoke Exposure: No Advance Directives Date on File: 06/27/23 service: No Current occupational status: retired Office Procedures Cardiac Device Check Cardiac Device Check Details: Monitoring period dates: 07/24/24- 08/23/24 Optimal PA pressure range: ADDY 45mmhg Procedure code: 46013 BACKGROUND: Tommy is implanted with the CardioMEMS PA Sensor.? I use this technology to monitor PA pressures on a weekly basis to ensure patients are within their optimal range to prevent decompensation.? SUMMARY:? I utilized the remote monitoring platform ([employer]) to set optimal targets for pulmonary artery pressure thresholds as part of acute and chronic management of patient?s heart failure. During the period indicated above, I monitored the patient?s pulmonary artery pressures weekly via trend analysis and notification reports which provide alerts when patient?s PA pressures were outside of range to prompt immediate action in medication changes and communications.? The weekly reports are archived in the [employer] system which serve as a parallel record to document weekly PA pressures, medication changes, and clinical notes. I have reviewed readings on 07/24, 07/31, 08/07, 08/14, 08/21.His ADDY readings have ranged between 38-48mmgh. No med changes made. 89920 - Remote monitoring of wireless pulmonary artery pressure sensor Procedure code (CPT) selection complete Assessment & Plan Assessment & Plan (1) Presence of CardioMEMS HF system: Code(s): Z95.818 - Presence of other cardiac implants and grafts Category: Medical Plan: monthly report Coding Level of Care Code Procedure Only Diagnoses Presence of CardioMEMS HF system Z95.818 CPT Codes Cardiac Device Check - Cardiac Device 17: 66553 - Remote monitoring of wireless pulmonary artery pressure sensor ([id number])
== END ==
PROVIDERS: PCP Internal Medicine; Visit Provider Nurse Practitioner Family
DX: Z45.09 Encounter for adjustment and management of other cardiac device (principal)
CPT/HCPCS: 93264

== ENCOUNTER 2024-09-21 10:36 | Outpatient (AMB) | payer OTHER, SELFPAY ==
--- NOTE | 2024-09-21 10:50 | A.OFFVIS_ITS ---
Vital Signs 09/21/24 10:51 Height 5 ft 11 in Weight 182 lb BMI 25.4 BP 126/68 Blood Pressure Location Lt brachial Position Sitting Pulse 64 Pulse Source Pulse Oximeter Pulse Oximetry (%) 93 Oxygen Delivery Method Room Air Comment 4 Liters Oxygen([employer]) Intake Visit Reasons: Pulmonary HTN Environmental Health Officer Required: No Allergies No Known Allergies Allergy (Unknown, Verified 09/21/24 10:50) NOT APPLICABLE HPI Comments Details: The patient is 79-year-old gentleman with a known history of emphysema, interstitial lung disease along with severe pulmonary hypertension on hot oxygen requirements. He has been followed closely at [place]. The patient was evaluated and placed on prednisone, initially starting at 10 mg and now 7.5 mg in part to treat the interstitial lung disease likely related to the underlying connective tissue disease. Recently he was admitted to the hospital worsening shortness of breath. He was treated appropriately. He did have a CT scan of the chest that I personally reviewed. He does have moderate to severe emphysema and also bilateral interstitial lung disease. No significant change when compared to 2020 which is reassuring that is not significantly progressive. However, patient also had an echocardiogram demonstrating very severe elevations in his pulmonary pressures with a very dilated RV concerning for potentially even higher pulmonary arterial pressures. During the visit we did go for brief walking oximetry in the patient did desaturate in the pulse oxygen that he came in with and at rest he did need 4 L continuous oxygen. Explained to him that the pulse does not work for him. He needs to be on continues oxygen and he is agreeable to this and will make arrangements with his [employer] company. In addition that with walking on 6 L he barely was able to keep a 88%. Therefore, I will request an Oxymizer pendant from his [employer] company in order to provide him enough oxygen. I do believe that his pulmonary hypertension is out of proportion to those pulmonary disease that he has. In his EF and left ventricular anatomy mohit ears to be normal. Therefore, I do believe that considering a basal dilator to treat severe pulmonary hypertension that is out of proportion to his underlying pulmonary disease would be reasonable. The patient does have connective tissue disease which can predispose to group 1 pulmonary hypertension. 02/17/2024 the patient is here for a pulmonary follow-up visit. He has doing a little better. His oxygen requirements have decreased a little bit. No longer requires an Oxymizer pendant. Although the conserving device is not sufficient. He did come in with a pulse ox in the low 80s on his 3-4 L pulse. Therefore the patient needs to be on continues oxygen. We did provide him an operative tank poor continues oxygen at this time. He needs to use 2 L at rest and 3 L with activity. His degree of respiratory failure is primarily due to his pulmonary hypertension. He is severe pulmonary hypertension based on his echo with a very dilated RV. The patient was approved to start sildenafil. But, then his insurance changed and the patient was not aware and therefore he was not able to start the medication. He had a very abnormal echocardiogram. Again consistent with WHO group 1. therefore, we will request the patient started on sildenafil again will hopes that we can control his pulmonary hypertension in therefore decrease his significant oxygen requirements. Once the patient is on the vasodilators therapy we can repeat his 6 minute walk test in hopes that he can tolerate a conserving device and have an easier time carrying the oxygen. Also to note, the patient does have significant daytime drowsiness. Will go ahead and request an in-law his Orange score is elevated 10/21. Will request an in-lab sleep study at this time. 06/14/2024 the patient is here for pulmonary follow-up visit. Overall he was recently hospitalized with acute on chronic hypoxic respiratory failure. The patient did respond well to steroids. He currently is on 7.5 mg of prednisone. In addition to that he has been on the sildenafil for the pulmonary hypertension. While in the hospital he did have a CT scan of the chest that I did personally review with him in the family. 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 At this point will continue him on the sildenafil 20 mg. Will request an echocardiogram prior to his next visit however. He does want have a portable oxygen concentrator. Explained to him that his oxygen requirements are too high. We did try him on 5 L pulse while resting his oxygen was only about 86%. He understands that he will need a continuous flow portable oxygen concentrator and does her not covered by the [employer] would have to be an [id number] expense be very expensive. I will talk to the [employer] company in order for him to get oxygen tanks prefilled because he is having hard time with filling station and also with the [id number] to be able to carry the the cylinder oxygen tanks with more ease. The patient does require 4 L of oxygen at rest and also requires up to 6 L with activity. 09/21/2024 the patient is here for a pulmonary follow-up visit. Overall he is feeling well. He continues to use his oxygen with good effect. He is tolerating the sildenafil. The patient has been on 20 mg 3 times a day. He did have a repeat echocardiogram demonstrating the PA pressures decreasing from 75 mmHg down to 49 mmHg which is reassuring. He continues to have significant oxygen requirements however. This is likely multifactorial. Based on the fact that he still has moderate degree of pulmonary hypertension will try to increase the sildenafil slowly to make sure does not develop any adverse hypoxia flash edema. He will take it 1/2 tablets and then increase it to 2 tablets 3 times a day. We can also add a 2nd agent which would be reasonable if he continues to have elevated pressures and continues have significant hypoxia. We did try him on a portable oxygen concentrator but he did not qualify. He is still requiring 6 L with activity. We did check ear probe in addition to a finger probe and they both were given low numbers. Will go ahead heading request a arterial blood gas to better get a sense of oxygen partial pressure and see adequate oxygenation in that matter. He is going to do that once he is able to come into the hospital and have that done. In addition to that he did have a CT scan back in April demonstrating 1.1 cm pulmonary nodule among others. He also has interstitial lung disease and emphysema. Will go ahead and repeat a CT scan prior to the next visit to assess his nodular density. Based on his oxygen needs and is decompensated state will be difficult to perform any semi invasive interventions or diagnostic interventions. 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) heart failure with preserved ejection fraction IPF (idiopathic pulmonary fibrosis) COPD (chronic obstructive pulmonary disease) Reactive airway disease Pulmonary hypertension Chronic respiratory failure CHF (congestive heart failure) ILD (interstitial lung disease) Acute exacerbation of CHF (congestive heart failure) SVT (supraventricular tachycardia) CHF exacerbation Chronic anticoagulation Atrial fibrillation Chronic hypoxemic respiratory failure Hypertension Rheumatoid arthritis Lymphadenopathy COPD exacerbation Surgical History Hx of colonoscopy Social History Household Members: Spouse Housing: House Do you presently have visiting nurse or other home services: No Alcohol intake: never Comment: patient rings appropriately Patient Tobacco Use Status: Former Tobacco user Tobacco use type: Cigarette Years Smoked: 40 e-Cigarette/Vaping Use: Former Use Second Hand Smoke Exposure: No Advance Directives Date on File: 06/27/23 service: No Current occupational status: retired Review of Systems Const All systems reviewed & are unremarkable except as noted in HPI and below Denies weakness ENT Denies dizziness Card Denies chest pain, Denies chest pain with activity, Denies syncope, Denies rapid heart rate, Denies pedal edema, Denies edema, Denies leg edema, Denies lightheadedness, Denies palpitations, Reports dyspnea, Reports dyspnea on exertion and Denies orthopnea Resp Denies cough, Reports dyspnea and Reports dyspnea on exertion GI Denies hematochezia and Denies change in stool character Musc Denies abnormal gait, Denies muscle cramps, Denies muscle weakness, Denies numbness, Denies radiating pain into limb and Denies tingling Neuro Denies abnormal gait, Denies dizziness, Denies syncope, Denies numbness, Denies tingling and Denies weakness Endo Denies palpitations Physical Exam Vital Signs: Last Vital Signs Pulse 64 09/21/24 10:51 BP 126/68 09/21/24 10:51 Pulse Ox 93 09/21/24 10:51 Oxygen Delivery Method Room Air 09/21/24 10:51 BMI result Body Mass Index 25.4 Last Vital Signs Temp 96.8 F 05/23/24 07:05 Pulse 63 05/23/24 07:49 Resp 16 05/23/24 07:05 BP 138/63 05/23/24 07:49 Pulse Ox 93 05/23/24 07:05 O2 Del Method Oxymask 05/23/24 07:05 O2 Flow Rate 7 05/23/24 07:05 Oxygen Flow Rate 8 05/22/24 12:36 BMI result Body Mass Index 24.9 Const General: alert HEENT Head: Yes normocephalic Neck Neck: Yes normal visual inspection, Yes full ROM and Yes no lymphadenopathy Chest Chest palpation & inspection: normal inspection of the chest Resp Effort & Inspection: normal respiratory effort Auscultation: rales, no rhonchi and diminished lung sounds Cardio Rate: regular rate Rhythm: regular rhythm Heart sounds: S1 normal heart sound present and S2 normal heart sound present GI Palpation (GI): Soft to palpation and nontender Auscultation: normal bowel sounds Skin General skin exam: no rashes or lesions noted Extrem General: Yes clubbing and No cyanosis Assessment & Plan Assessment & Plan (1) COPD (chronic obstructive pulmonary disease): Code(s): J44.9 - Chronic obstructive pulmonary disease, unspecified Category: Medical Qualifiers: COPD type: emphysema Emphysema type: centrilobular Qualified Code(s): J43.2 - Centrilobular emphysema (2) Chronic respiratory failure: Code(s): J96.10 - Chronic respiratory failure, unspecified whether with hypoxia or hypercapnia Category: Medical Qualifiers: Respiratory failure complication: hypoxia Qualified Code(s): J96.11 - Chronic respiratory failure with hypoxia (3) Pulmonary hypertension: Comment: WHO group 1 Code(s): I27.20 - Pulmonary hypertension, unspecified Category: Medical (4) ILD (interstitial lung disease): Code(s): J84.9 - Interstitial pulmonary disease, unspecified Category: Medical (5) Combined pulmonary fibrosis and emphysema (CPFE): Code(s): J43.9 - Emphysema, unspecified; J84.10 - Pulmonary fibrosis, unspecified Category: Medical (6) Pulmonary nodule 1 cm or greater in diameter: Code(s): R91.1 - Solitary pulmonary nodule Category: Medical Plan increase PD5 inhibitor, sildenafil 40mg PO TID for Pulmonary HTN Continue Breo JORGITO as needed Oxygen revision: 4L/min at rest, 6L/min with activity diuresis as tolerated prednisone 10mg ECHO was better PAP 79->49 mmHg F/U in 2 months Orders: Orders CT chest wo IV con 4 Weeks R91.1 - Solitary pulmonary nodule ABG Today I27.20 - Pulmonary hypertension, unspecified Medications: Changed From sildenafil (pulm.hypertension) (Revatio) administer doses at least 4-6 hours apart 20 mg PO TID 30 days 90 tabs 3RF To sildenafil (pulm.hypertension) (Revatio) administer doses at least 4-6 hours apart 40 mg (2 x 20 mg) PO TID 30 days 180 tabs 3RF Coding Level of Care Code Est Pt Level 5 (36020) Diagnoses Centrilobular emphysema J43.2 COPD type: emphysema Emphysema type: centrilobular Chronic respiratory failure with hypoxia J96.11 Respiratory failure complication: hypoxia Pulmonary hypertension I27.20 ILD (interstitial lung disease) J84.9 Combined pulmonary fibrosis and emphysema (CPFE) J43.9; J84.10 Pulmonary nodule 1 cm or greater in diameter R91.1 Time Spent (min) 45
[2024-09-21 10:51] VITALS: BP 126/68; PULSE 64; O2SAT 93; BMI 25.4
== END 2024-09-21 11:19 | disposition home or self-care (01) ==
PROVIDERS: PCP Internal Medicine; Visit Provider Hospitalist
DX: J43.2 Centrilobular emphysema (principal); J96.11 Chronic respiratory failure with hypoxia; I27.20 Pulmonary hypertension, unspecified; J84.9 Interstitial pulmonary disease, unspecified; J43.9 Emphysema, unspecified; J84.10 Pulmonary fibrosis, unspecified; R91.1 Solitary pulmonary nodule
CPT/HCPCS: 99215

== ENCOUNTER → 2024-09-21 10:36 | Outpatient (BNVA) | payer OTHER, SELFPAY | PROVIDERS: PCP Internal Medicine; Visit Provider Hospitalist | DX: J43.2 Centrilobular emphysema (principal); J96.11 Chronic respiratory failure with hypoxia; J84.9 Interstitial pulmonary disease, unspecified; J43.9 Emphysema, unspecified; J84.10 Pulmonary fibrosis, unspecified; I27.20 Pulmonary hypertension, unspecified; R91.1 Solitary pulmonary nodule | CPT/HCPCS: 99212 ==

== ENCOUNTER → 2024-09-27 23:59 | Outpatient (BNV) | payer OTHER, SELFPAY ==
--- NOTE | 2024-09-28 17:19 | MHC.OFFVIS ---
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) heart failure with preserved ejection fraction IPF (idiopathic pulmonary fibrosis) COPD (chronic obstructive pulmonary disease) Reactive airway disease Pulmonary hypertension Chronic respiratory failure CHF (congestive heart failure) ILD (interstitial lung disease) Acute exacerbation of CHF (congestive heart failure) SVT (supraventricular tachycardia) CHF exacerbation Chronic anticoagulation Atrial fibrillation Chronic hypoxemic respiratory failure Hypertension Rheumatoid arthritis Lymphadenopathy COPD exacerbation Surgical History Hx of colonoscopy Social History Household Members: Spouse Housing: House Do you presently have visiting nurse or other home services: No Alcohol intake: never Comment: patient rings appropriately Patient Tobacco Use Status: Former Tobacco user Tobacco use type: Cigarette Years Smoked: 40 e-Cigarette/Vaping Use: Former Use Second Hand Smoke Exposure: No Advance Directives Date on File: 06/27/23 service: No Current occupational status: retired Office Procedures Cardiac Device Check Cardiac Device Check Details: Monitoring period dates: 08/24/24- 09/27/24 Optimal PA pressure range: ADDY 45mmhg Procedure code: 51789 BACKGROUND: Tommy is implanted with the CardioMEMS PA Sensor.? I use this technology to monitor PA pressures on a weekly basis to ensure patients are within their optimal range to prevent decompensation.? SUMMARY:? I utilized the remote monitoring platform ([employer]) to set optimal targets for pulmonary artery pressure thresholds as part of acute and chronic management of patient?s heart failure. During the period indicated above, I monitored the patient?s pulmonary artery pressures weekly via trend analysis and notification reports which provide alerts when patient?s PA pressures were outside of range to prompt immediate action in medication changes and communications.? The weekly reports are archived in the [employer] system which serve as a parallel record to document weekly PA pressures, medication changes, and clinical notes. I have reviewed readings on 08/27, 09/03, 09/10, 09/17, 09/21, 09/27.His diuretics have not been changed by me during this time. 21403 - Remote monitoring of wireless pulmonary artery pressure sensor Procedure code (CPT) selection complete Assessment & Plan Assessment & Plan (1) Presence of CardioMEMS HF system: Code(s): Z95.818 - Presence of other cardiac implants and grafts Category: Medical Plan: monthly report Coding Level of Care Code Procedure Only Diagnoses Presence of CardioMEMS HF system Z95.818 CPT Codes Cardiac Device Check - Cardiac Device 17: 26709 - Remote monitoring of wireless pulmonary artery pressure sensor ([id number])
== END ==
PROVIDERS: PCP Internal Medicine; Visit Provider Nurse Practitioner Family
DX: Z45.09 Encounter for adjustment and management of other cardiac device (principal)
CPT/HCPCS: 93264

== ENCOUNTER 2024-10-14 10:38 | Inpatient (IN) | payer OTHER, SELFPAY ==
[2024-10-14] VITALS (17 sets, daily range): BP systolic 130–143; BP diastolic 49–65; PULSE 74–90; RESP 16–22; TEMP 36.8–36.9; O2SAT 86–94; BMI 26.9
--- NOTE | ~2024-10-14 | XR_ITS ---
EXAMINATION: XR CHEST CLINICAL INFORMATION: Dyspnea. COMPARISON: Most recent CT chest dated 05/22/2024 and radiograph dated 05/22/2024. TECHNIQUE: Frontal view of the chest was obtained. FINDINGS: Chronic interstitial prominence with patchy bilateral airspace opacities, similar when compared to the prior examination. No new airspace consolidation. No pleural effusion or pneumothorax. Stable cardiomediastinal silhouette. XR/XR chest 1V IMPRESSION: Chronic interstitial prominence with patchy bilateral airspace opacities, similar when compared to the prior examination. Electronically signed by: Petey Redd MD 10/14/2024 12:34 PM [facility]
--- NOTE | 2024-10-14 10:53 | ECG_ITS ---
Test Reason : DYSPNEA Blood Pressure : / mmHG Vent. Rate : 081 BPM Atrial Rate : 081 BPM P-R Int : 132 ms QRS Dur : 130 ms QT Int : 426 ms P-R-T Axes : 028 127 005 degrees QTc Int : 494 ms Sinus rhythm with Premature supraventricular complexes Right bundle branch block Possible Lateral infarct (cited on or before 22-MAY-2024) Abnormal ECG When compared with ECG of 22-MAY-2024 12:53, Right bundle branch block is now Present Questionable change in initial forces of Lateral leads Referred By: Bessy Souza Electronically Signed By:ADAMS CAMEJO MD
[2024-10-14] MEDS: methylPREDNISolone Sod Succ 125 MG/2 ML VIAL 60 MG IVPUSH (11:00)
[2024-10-14] MEDS: Albuterol Sulfate 5 MG, Albuterol/Iprat 2.5/0.5MG 3 ML 3 ML INHALE (11:07)
--- NOTE | 2024-10-14 11:08 | ED.SOB ---
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 He is compliant with all of his medications. He started to feel short of breath around 8pm then this AM his home pulse ox was 82%. He could not get better at home so he called EMS - they found him in 70s but he states he was on his 4L at that time. Started on NRB but no steroids/nebulizer en route. Placed on 7L oxymask here MD elicited complaint: shortness of breath and cough Pertinent past history: COPD and congestive heart failure Onset (ago): day(s) (8pm last night) Context: other Timing: constant Severity: severe Exacerbating factors: exertion Relieving factors: oxygen and upright position Known history of: COPD and congestive heart failure Associated symptoms: cough and sputum production Treatment prior to arrival: oxygen Related Data Home Medications ?Medication ?Instructions ?Recorded ?Confirmed adalimumab 40 mg/0.4 mL 40 mg subcut Q2W 11/20/21 05/22/24 subcutaneous pen kit (Humira(CF) Pen) folic acid 400 mcg tablet 400 mcg PO DAILY 11/20/21 05/22/24 rosuvastatin 10 mg tablet 1 tab PO BEDTIME 11/20/21 05/22/24 timolol maleate 0.5 % eye drops 1 drp ophthalmic (eye) DAILY 11/20/21 05/22/24 tramadol 50 mg tablet 1 tab PO BID PRN Pain, Moderate 11/20/21 05/22/24 aspirin 81 mg tablet,delayed 81 mg PO DAILY 04/18/23 05/22/24 release nitroglycerin 0.4 mg sublingual 0.4 mg sublingual Q5M PRN Chest 04/18/23 05/22/24 tablet Pain albuterol sulfate 90 mcg/actuation 2 puff inhalation Q4H PRN wheezing 12/14/23 05/22/24 aerosol inhaler (Ventolin HFA) Oxygen Home Use 12/23/23 04/15/24 nebulizers 12/23/23 04/15/24 empagliflozin 10 mg tablet 10 mg PO DAILY 04/15/24 05/22/24 (Jardiance) insulin glargine 100 unit/mL (3 20 unit subcut BEDTIME 04/15/24 05/22/24 mL) subcutaneous pen (Lantus Solostar U-100 Insulin) metoprolol tartrate 50 mg tablet 50 mg PO BID 04/15/24 05/22/24 warfarin 5 mg tablet 5 mg PO DAILY@1800 04/15/24 05/22/24 diltiazem HCl 240 mg 240 mg PO DAILY 05/11/24 05/22/24 capsule,extended release 24 hr albuterol sulfate 2.5 mg/3 mL 2.5 mg inhalation Q4H PRN 05/22/24 05/22/24 (0.083 %) solution for nebulization shortness of breath or wheezing omeprazole 20 mg capsule,delayed 20 mg PO DAILY@0630 05/22/24 05/22/24 release Previous Rx's ?Medication ?Instructions ?Recorded sacubitril 49 mg-valsartan 51 mg 1 tab PO BID #30 tabs 12/02/23 tablet (Entresto) prednisone 10 mg tablet 10 mg PO DIRECTED #60 tabs 05/24/24 bumetanide 1 mg tablet 1 mg PO BID #60 tabs 06/05/24 fluticasone furoate 200 1 inh inhalation DAILY 30 days #60 06/18/24 mcg-vilanterol 25 mcg/dose ea inhalation powder (Breo Ellipta) prednisone 5 mg tablet 10 mg (2 x 5 mg) PO DAILY 30 days 07/05/24 #60 tabs sildenafil (pulm.hypertension) 20 40 mg (2 x 20 mg) PO TID 30 days 09/21/24 mg tablet (Revatio) #180 tabs Allergies Allergy/AdvReac Type Severity Reaction Status Date / Time No Known Allergies Allergy Unknown NOT Verified 10/14/24 10:53 APPLICABLE Review of Systems Review of Systems: Constitutional : No Fever, No Chills ENT/Mouth : No Hoarseness, No sore throat, No Rhinorrhea Eyes: No Redness, No Discharge, No Vision Changes Cardiovascular : No Chest Pain, positive SOB, positive Dyspnea on Exertion, No Edema Respiratory : positive Cough, pos Sputum, no Wheezing, Gastrointestinal : No Nausea, No Vomiting, No Diarrhea, No abdominal Pain Genitourinary : No Dysuria, No Hematuria Musculoskeletal : No joint pain, No Myalgias Skin : No rash Neuro : No Weakness, No Numbness, No Headache Psych : No anxiety, depression All other systems reviewed and are negative PMFSH Past Medical History Attestation statement: The following information was validated with the patient. 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) heart failure with preserved ejection fraction IPF (idiopathic pulmonary fibrosis) COPD (chronic obstructive pulmonary disease) Reactive airway disease Pulmonary hypertension Chronic respiratory failure CHF (congestive heart failure) ILD (interstitial lung disease) Acute exacerbation of CHF (congestive heart failure) SVT (supraventricular tachycardia) CHF exacerbation Chronic anticoagulation Atrial fibrillation Chronic hypoxemic respiratory failure Hypertension Rheumatoid arthritis Lymphadenopathy COPD exacerbation Surgical History Hx of colonoscopy Social History Social History Household Members: Spouse Housing: House Do you presently have visiting nurse or other home services: No Alcohol intake: former Comment: patient rings appropriately Patient Tobacco Use Status: Former Tobacco user Tobacco use type: Cigarette Years Smoked: 40 Smoked in Last 30 Days: No e-Cigarette/Vaping Use: Former Use Second Hand Smoke Exposure: No Use of substances other than those prescribed or required for medical reasons: No Advance Directives: Yes Advance Directives on File: Yes Advance Directives Date on File: 06/27/23 service: No Current occupational status: retired Physical Exam Vital Signs: Vital Signs: Last Vital Signs Temp 98.2 F 10/14/24 10:48 Pulse 74 10/14/24 12:44 Resp 20 10/14/24 12:44 BP 143/58 H 10/14/24 11:56 Pulse Ox 90 L 10/14/24 12:44 O2 Del Method Nasal Cannula 10/14/24 12:44 O2 Flow Rate 6 10/14/24 12:44 Oxygen Flow Rate 11 10/14/24 10:48 BMI result Body Mass Index 26.9 Appearance: Alert. Oriented X3. Mild acute distress. Eyes: Pupils equal, round and reactive to light. ENT: Pharynx normal. Neck: Normal inspection. Neck supple. CVS: Normal heart rate and rhythm. Pulses normal. Respiratory: No respiratory distress. Breath sounds diminished throughout Abdomen: Soft and nontender. Skin: Skin warm and dry. pale skin color. Normal skin turgor. Extremities: No lower extremity edema. No calf ttp Neuro: Oriented X 3. No motor deficit. No sensory deficit. Course Course Course Narrative: IV magnesium ordered Medications Administered Generic Name Dose Route Start Last Admin Trade Name Freq PRN Reason Stop Dose Admin Azithromycin 500 mg/ Sodium 250 mls @ 125 mls/hr 10/14/24 11:00 10/14/24 12:00 Chloride IV 10/14/24 12:59 125 mls/hr ONCE ONE Administration Magnesium Sulfate 2 gm in 50 mls @ 25 mls/hr 10/14/24 11:40 10/14/24 11:55 Magnesium Sulfate/H2o IV 10/14/24 13:39 25 mls/hr ONCE ONE Administration Discontinued Medications Generic Name Dose Route Start Last Admin Trade Name Freq PRN Reason Stop Dose Admin Bumetanide 0.5 mg 10/14/24 11:38 10/14/24 11:56 Bumetanide 1 Mg/4 Ml Vial IVPUSH 10/14/24 11:39 0.5 mg ONCE ONE Administration Protocol Albuterol Sulfate 5 mg/ 0 mg 10/14/24 11:05 10/14/24 11:07 Albuterol/Ipratropium 3 ml INHALE 10/14/24 11:06 7.5 each ONCE ONE Administration Methylprednisolone Sodium Succinate 60 mg 10/14/24 10:53 10/14/24 11:00 Methylprednisolone Sod Succ 125 Mg/2 Ml Vial IVPUSH 10/14/24 10:54 60 mg ONCE ONE Administration Medical Decision Making Medical Decision Making [facility] Narrative: 79 yo male with PMH of COPD on 4liters, HFpreserved EF cardiomems device, pulmonary HTN, PAF on coumadin, RA on chronic prednisone dosing, HTN, DM2, CKD here with dyspnea, wheezing and sputum production on oxymask will attempt to wean after duonebs, IV steroids and azithromycin. I have ordered labs, CXR, viral panel, EKG and BNP. Suspect likely COPD vs CHF. On coumadin down VTE. He has no chest pain doubt ACS/dissection/PTX Differential Diagnosis Differential Diagnoses: The differential diagnosis associated with the presentation includes COPD vs CHF Admission/Observation Consideration of admission/observation: Escalation of care including admission/observation considered admit given hypoxia at home and worsening symptoms Consult Healthcare Provider Management of the patient was discussed with: Hospitalist (will admit) Lab Data MDM Lab Attestation statement: I reviewed the patient's lab results. 10/14/24 11:06 10/14/24 11:06 Labs: Lab Results 10/14/24 10/14/24 10/14/24 Range/Units 11:06 11:13 12:35 WBC 11.1 H (4.8-10.8) X10*3/uL RBC 5.03 (4.60-5.80) X10*6/uL Hgb 12.7 L (14.0-18.0) g/dl Hct 42.0 (42.0-52.0) % MCV 83.5 (80.0-98.0) fL MCH 25.2 L (27.0-33.0) pg MCHC 30.2 L (31.0-36.0) g/dl RDW 17.7 H (11.0-16.0) % Plt Count 243 (160-400) X10*3/uL MPV 10.6 (9.4-12.4) fL Immature Gran % (Auto) 0.5 H (0.0-0.4) % Neut % (Auto) 78.7 H (45-73) % Lymph % (Auto) 11.4 L (20-40) % [place] % (Auto) 7.6 (2-11) % Eos % (Auto) 1.3 (0-4) % Baso % (Auto) 0.5 (0-2) % Lymph # (Auto) 1.3 (1.2-4.9) X10*3/uL [place] # (Auto) 0.8 (0.1-1.2) X10*3/uL Eos # (Auto) 0.1 (0.0-0.4) X10*3/uL Baso # (Auto) 0.1 (0.0-0.2) X10*3/uL Abs Immat Gran (auto) 0.06 H (0.00-0.03) X10*3/uL Absolute Neuts (auto) 8.8 H (2.0-8.3) x10*3/uL Absolute Nucleated RBC 0.000 (0.0-0.012) X10*3/uL Nucleated RBC % (auto) 0.0 (0.0-0.2) /100WBC PT 24.9 H (10.9-12.4) SEC INR 2.1 H (0.9-1.1) VBG pH 7.41 (7.32-7.43) VBG pCO2 46 mmHg VBG pO2 36 mmHg VBG HCO3 30 H (22-26) mmol/L VBG O2 Saturation 62.0 % VBG Base Excess 4.7 mmol/L Sodium 146 H (135-145) mmol/L Potassium 3.3 (3.3-5.1) mmol/L Chloride 107 (96-108) mmol/L Carbon Dioxide 26 (22-29) mmol/L Anion Gap 16 (12-20) BUN 26 H (9-16) mg/dL Creatinine 1.54 H (0.5-1.4) mg/dL Estim Creat Clear Calc 39.5 Estimated GFR 44 Random Glucose 190 H (60-115) mg/dL Lactic Acid 1.1 (0.5-2.0) mmol/L Calcium 9.4 (8.4-10.2) mg/dL Magnesium 1.4 L* (1.6-2.6) mg/dL Total Bilirubin 0.4 (0.0-1.0) mg/dL Direct Bilirubin 0.1 (0.0-0.5) mg/dL AST 20 (5-37) U/L ALT 24 (0-40) U/L Alkaline Phosphatase 60 (39-117) U/L Troponin I High Sens 24.1 D (<3.5-35.0) ng/L C-Reactive Protein 0.95 H (< or = 0.50) mg/dL B-Natriuretic Peptide 653 H (<100) pg/mL Total Protein 7.2 (6.5-8.0) g/dL Albumin 3.7 (3.5-5.0) g/dL Urine Color Yellow Urine Appearance Clear Urine pH 5.5 (5.0-9.0) Ur Specific [place] 1.020 (1.005-1.025) Urine Protein 30 (1+) H (Neg-Trace) mg/dL Urine Glucose (UA) >=1000 H (Negative) mg/dL Urine Ketones Negative (Negative) mg/dL Urine Blood Negative (Negative) Urine Nitrite Negative (Negative) Ur Leukocyte Esterase Negative (Negative) Urine RBC 0-2 (0-2) /HPF Urine WBC 0-5 (0-5) /HPF Ur Squamous Epith Cells 0-2 (0-2) /HPF Urine Bacteria None Seen (None Seen) Hyaline Casts 0-2 (0-2) /LPF Influenza Type A (PCR) NEGATIVE (Negative) Influenza Type B (PCR) NEGATIVE (Negative) RSV RNA Qual (PCR) NEGATIVE (Negative) SARS-CoV-2 RNA (RT-PCR) NEGATIVE (Negative) Independent Interpretation I performed an independent interpretation of an: EKG and Plain X-Ray (chronic) Interpretation: Rate: 81 Rhythm: NSR [place]: left Normal P waves. Normal JAMES. RBBB ST T wave : no KATINA, inverted t waves V1 and III qTC: 494 prior studies: no change March 2024 The study has been interpreted contemporaneously by me. . Radiology Impression Discussion of test interpretation with radiology: I have reviewed the radiologist's reading. Independent Historian Clinical information obtained from an independent historian. History obtained from or confirmed by: EMS External Record Review External record reviewed: Inpatient record and Outpatient record Discharge Plan Discharge Clinical Impression: Hypomagnesemia, Chronic hypoxemic respiratory failure COPD (chronic obstructive pulmonary disease) Qualifiers: COPD type: COPD with acute exacerbation Qualified Code(s): J44.1 - Chronic obstructive pulmonary disease with (acute) exacerbation CHF (congestive heart failure) Qualifiers: Heart failure type: unspecified Heart failure chronicity: acute on chronic Qualified Code(s): I50.9 - Heart failure, unspecified Patient Disposition: Admitted As Inpatient Print Language: Slovak
[2024-10-14 11:13] LABS: MANUAL DIFF FLAG NO
[2024-10-14 11:14] LABS: Venous Blood Gas Refer to POC result
[2024-10-14 11:14] LABS: Basophils Absolute Auto 0.1 X10*3/uL (0.0-0.2); Basophils Percent Auto 0.5 % (0-2); Eosinophils Absolute Auto 0.1 X10*3/uL (0.0-0.4); Eosinophils Percent Auto 1.3 % (0-4); Hemoglobin 12.7 g/dl (14.0-18.0); Imm Gran Abs Auto 0.06 X10*3/uL (0.00-0.03); Imm Gran Pct Auto 0.5 % (0.0-0.4); Lymphocytes Absolute Auto 1.3 X10*3/uL (1.2-4.9); Lymphocytes Percent Auto 11.4 % (20-40); Mean Corpuscular HGB Conc 30.2 g/dl (31.0-36.0); Mean Corpuscular Hemoglobin 25.2 pg (27.0-33.0); Mean Corpuscular Volume 83.5 fL (80.0-98.0); Mean Platelet Volume 10.6 fL (9.4-12.4); Monocytes Absolute Auto 0.8 X10*3/uL (0.1-1.2); Monocytes Percent Auto 7.6 % (2-11); Neutrophils Absolute Auto 8.8 x10*3/uL (2.0-8.3); Neutrophils Percent Auto 78.7 % (45-73); Platelet Count 243 X10*3/uL (160-400); Red Blood Count 5.03 X10*6/uL (4.60-5.80); Red Cell Distribution Width 17.7 % (11.0-16.0); White Blood Count 11.1 X10*3/uL (4.8-10.8)
[2024-10-14 11:17] LABS: VBG Base Excess 4.7 mmol/L; VBG HCO3 30 mmol/L (22-26); VBG pCO2 46 mmHg; VBG pH 7.41 (7.32-7.43); VBG pO2 36 mmHg
[2024-10-14 11:19] LABS: INTERNATIONAL NORM RATIO 2.1 (0.9-1.1); Prothrombin Time 24.9 SEC (10.9-12.4)
[2024-10-14 11:32] LABS: Lactic Acid 1.1 mmol/L (0.5-2.0)
[2024-10-14 11:35] LABS: B Type Natriuretic Peptide 653 pg/mL (<100)
[2024-10-14 11:39] LABS: Troponin-I High Sensitivity 24.1 ng/L (<3.5-35.0)
[2024-10-14 11:40] LABS: Alanine Aminotransferase 24 U/L (0-40); Albumin Level 3.7 g/dL (3.5-5.0); Anion Gap 16 (12-20); Aspartate Amino Transferase 20 U/L (5-37); Bilirubin Direct 0.1 mg/dL (0.0-0.5); Bilirubin Total 0.4 mg/dL (0.0-1.0); Blood Urea Nitrogen 26 mg/dL (9-16); C Reactive Protein 0.95 mg/dL (< or = 0.50); Calcium 9.4 mg/dL (8.4-10.2); Carbon Dioxide 26 mmol/L (22-29); Chloride 107 mmol/L (96-108); Creatinine Clr Calc Pharmacy 39.5; Estimated Glomerular Filt Rate 44; Glucose Random 190 mg/dL (60-115); Potassium 3.3 mmol/L (3.3-5.1); Sodium 146 mmol/L (135-145); Total Protein 7.2 g/dL (6.5-8.0)
[2024-10-14 11:41] LABS: Alkaline Phosphatase 60 U/L (39-117); Magnesium 1.4 mg/dL (1.6-2.6)
[2024-10-14] MEDS: Magnesium Sulfate/H2O 2 GM/50 ML PIGGYBACK IV (11:55)
[2024-10-14] MEDS: Bumetanide 1 MG/4 ML VIAL 0.5 MG IVPUSH (11:56)
[2024-10-14] MEDS: Azithromycin 500 MG in 0.9 % Sodium Chloride 250 ML 125 MG IV (12:00)
--- NOTE | 2024-10-14 12:12 | PC.NURSE ---
Arrived via ems with non-breather sating 93%. PLaced on oxy mask at 13 L sating 92%. respiratory at bedside. Patient reports that last night around 8pm he started having trouble breathing and it got worse throughout the night. Medicated per jan, attempted to wean . Upon turning 02 down to 12 L via oxy mask sating 86%, turned back to 13L , provider aware
[2024-10-14 12:28] LABS: Influenza A PCR NEGATIVE (Negative); Influenza B PCR NEGATIVE (Negative); Resp Syncy Virus RNA Qual PCR NEGATIVE (Negative); SARS COV2 PCR INHOUSE NEGATIVE (Negative)
--- NOTE | 2024-10-14 12:37 | MHC.EDTECH ---
pt urine sample sent
--- NOTE | 2024-10-14 12:42 | PC.NURSE ---
switched from oxy mask to NC @ 6L, voided large amount of clear urine
[2024-10-14 12:45] LABS: Appearance Urine Clear; Color Urine Yellow; Glucose Urine UA >=1000 mg/dL (Negative); Leukocyte Esterase Urine Negative (Negative); Nitrite Urine Negative (Negative); PH 5.5 (5.0-9.0); UMIC TRIGGER UACC YES; Urine Blood Negative (Negative); Urine Ketones Negative (Negative); Urine Protein 30 (1+) mg/dL (Neg-Trace)
[2024-10-14 12:48] LABS: Bacteria Urine None Seen (None Seen); Hyaline Casts Urine 0-2 /LPF (0-2); RBC Urine 0-2 /HPF (0-2); Squamous Epithelial Cell Urine 0-2 /HPF (0-2); WBC Urine 0-5 /HPF (0-5)
[2024-10-14] MEDS: Albuterol Sulfate 2.5 MG, Albuterol/Iprat 2.5/0.5MG 3 ML 3 ML INHALE (12:53)
--- NOTE | 2024-10-14 12:59 | MHC.EDTECH ---
pt belongings list completed and printed in chart
--- NOTE | 2024-10-14 13:54 | P.HPHOSP_ITS ---
History of Present Illness Date of Service: 10/14/24 Attending physician on admission: Isela Dumont Chief Complaint: SOB Pt is an 79-year-old male with a PMH significant for?HFpEF s/p CardioMEMS, pulmonary HTN, cor pulmonale, idiopathic pulmonary fibrosis, asthma/COPD on 4-5 L home O2, paroxysmal AFib on Coumadin, RA on chronic steroids, insulin- dependent type 2 diabetes, HTN, and CKD 3 who presents to the ED with?increasing shortness a breath, WEBER, and difficulty breathing since last night. Patient reports suddenly became short of breath last night as he was getting ready to go to bed. Increased his oxygen from 4 L to 5 L with some improvement. This morning symptoms persisted and patient was increasingly out of breath and having difficulty breathing. EMS found him satting into the 70s on RA and placed non- rebreather. Patient denies any other significant medical complaints. Chronic chills, but no fever. No significant cough. Denies lower extremity edema. No nausea, vomiting, abdominal pain. Denies chest pain/pressure, palpitations. Currently patient states he feels much better after receiving treatments in the ED, though continues to desat into the 80s on 6 L NC. Reports has been compliant with his home medications. Last CardioMEMS reading on 09/28 which was within proper limits for him and no change in his diuretics were made. In the ED pt was tachypneic up to 22 and slightly hypertensive up to 143/50, initially satting in the 70s on RA and 86% on 13L OxyMask, now improved to 90% on 6 L NC. Labs were significant for magnesium 1.4, BNP 653 (around baseline), chronic leukocytosis of 11.1, sodium 146, and creatinine around baseline at 1.54. VBG reassuring at pH 7.41, pCO2 46, and bicarb 30. UA negative for UTI. Tested negative for flu, COVID, RSV. CXR showed chronic interstitial prominence with patchy bilateral airspace opacities, similar to previous. EKG demonstrated sinus with premature supraventricular complexes and new RBBB. Pt was treated with Solu-Medrol, DuoNebs, Mag sulfate, bumetanide, and azithromycin. Pt will be admitted to the hospital for treatment and further evaluation of acute on chronic hypoxic respiratory failure in the setting of COPD exacerbation. Review of Systems 2 Review of Systems: Negative except for that which is stated in the [facility] Medical History (Updated 10/14/24 @ 15:01 by CONNIE Winchester) COPD exacerbation Pulmonary nodule 1 cm or greater in diameter Combined pulmonary fibrosis and emphysema (CPFE) (HFpEF) heart failure with preserved ejection fraction IPF (idiopathic pulmonary fibrosis) COPD (chronic obstructive pulmonary disease) Reactive airway disease Pulmonary hypertension Chronic respiratory failure CHF (congestive heart failure) ILD (interstitial lung disease) Acute exacerbation of CHF (congestive heart failure) SVT (supraventricular tachycardia) CHF exacerbation Chronic anticoagulation Atrial fibrillation Chronic hypoxemic respiratory failure Hypertension Rheumatoid arthritis Lymphadenopathy Surgical History Hx of colonoscopy Social History Household Members: Spouse Housing: House Do you presently have visiting nurse or other home services: No Alcohol intake: former Comment: patient rings appropriately Patient Tobacco Use Status: Former Tobacco user Tobacco use type: Cigarette Years Smoked: 40 Smoked in Last 30 Days: No e-Cigarette/Vaping Use: Former Use Second Hand Smoke Exposure: No Use of substances other than those prescribed or required for medical reasons: No Advance Directives: Yes Advance Directives on File: Yes Advance Directives Date on File: 06/27/23 service: No Current occupational status: retired Meds Allergies Allergy/AdvReac Type Severity Reaction Status Date / Time No Known Allergies Allergy Unknown NOT Verified 10/14/24 10:53 APPLICABLE Home Medications ?Medication ?Instructions ?Recorded ?Confirmed ?Last Taken ?Type adalimumab 40 mg/0.4 mL 40 mg subcut Q2W 11/20/21 10/14/24 10/10/24 History subcutaneous pen kit (Humira(CF) Pen) folic acid 400 mcg tablet 400 mcg PO DAILY 11/20/21 10/14/24 10/14/24 09:00 History rosuvastatin 10 mg tablet 1 tab PO BEDTIME 11/20/21 10/14/24 05/21/24 18:00 History timolol maleate 0.5 % eye drops 1 drp ophthalmic (eye) DAILY 11/20/21 10/14/24 10/14/24 09:00 History tramadol 50 mg tablet 1 tab PO BID PRN Pain, Moderate 11/20/21 10/14/24 05/22/24 06:00 History aspirin 81 mg tablet,delayed 81 mg PO DAILY 04/18/23 10/14/24 10/14/24 09:00 History release nitroglycerin 0.4 mg sublingual 0.4 mg sublingual Q5M PRN Chest 04/18/23 10/14/24 Unknown History tablet Pain albuterol sulfate 90 mcg/actuation 2 puff inhalation Q4H PRN wheezing 12/14/23 10/14/24 Unknown History aerosol inhaler (Ventolin HFA) Oxygen Home Use 12/23/23 04/15/24 04/14/24 History nebulizers 12/23/23 04/15/24 04/14/24 History empagliflozin 10 mg tablet 10 mg PO DAILY 04/15/24 10/14/24 10/14/24 09:00 History (Jardiance) insulin glargine 100 unit/mL (3 20 unit subcut BEDTIME 04/15/24 10/14/24 05/21/24 18:00 History mL) subcutaneous pen (Lantus Solostar U-100 Insulin) metoprolol tartrate 50 mg tablet 50 mg PO BID 04/15/24 10/14/24 10/14/24 09:00 History warfarin 5 mg tablet 5 mg PO DAILY@1800 04/15/24 10/14/24 05/21/24 18:00 History diltiazem HCl 240 mg 240 mg PO DAILY 05/11/24 10/14/24 10/14/24 09:00 History capsule,extended release 24 hr albuterol sulfate 2.5 mg/3 mL 2.5 mg inhalation Q4H PRN 05/22/24 10/14/24 Unknown History (0.083 %) solution for nebulization shortness of breath or wheezing cholecalciferol (vitamin D3) 50 50 mcg PO DAILY 10/14/24 10/14/24 10/14/24 09:00 History mcg (2,000 unit) tablet pantoprazole 40 mg tablet,delayed 40 mg PO DAILY@0630 10/14/24 10/14/24 10/14/24 07:00 History release prednisone 10 mg tablet 10 mg PO DAILY 10/14/24 10/14/24 10/14/24 09:00 History sildenafil (pulm.hypertension) 20 20 mg PO TID 10/14/24 10/14/24 10/14/24 09:00 History mg tablet (Revatio) Physical Exam 2 Vital Signs and Narrative: Vital Signs: Last Vital Signs Temp 98.2 F 10/14/24 10:48 Pulse 74 10/14/24 12:54 Resp 20 10/14/24 12:54 BP 143/58 H 10/14/24 11:56 Pulse Ox 90 L 10/14/24 12:44 O2 Del Method Nasal Cannula 10/14/24 12:44 O2 Flow Rate 6 10/14/24 12:44 Oxygen Flow Rate 11 10/14/24 10:48 BMI result Body Mass Index 26.9 General: AOx3, no acute distress Resp: Lung sounds diminished with diffuse wheezing bilaterally CVS: S1, S2, RRR GI: +BS, NT, no distention Skin: Warm, dry Neuro: Cranial nerves II-XII grossly intact bilaterally. Motor grossly intact bilaterally Extremities: No edema Psych: Appropriate affect Results Labs 10/14/24 11:06 10/14/24 11:06 Labs: Laboratory Results - last 24 hr 10/14/24 10/14/24 10/14/24 11:06 11:13 12:35 MCV 83.5 MCH 25.2 L MCHC 30.2 L RDW 17.7 H Plt Count 243 MPV 10.6 Immature Gran % (Auto) 0.5 H Neut % (Auto) 78.7 H Lymph % (Auto) 11.4 L [place] % (Auto) 7.6 Eos % (Auto) 1.3 Baso % (Auto) 0.5 Lymph # (Auto) 1.3 [place] # (Auto) 0.8 Eos # (Auto) 0.1 Baso # (Auto) 0.1 Abs Immat Gran (auto) 0.06 H Absolute Neuts (auto) 8.8 H Absolute Nucleated RBC 0.000 Nucleated RBC % (auto) 0.0 PT 24.9 H INR 2.1 H VBG pH 7.41 VBG pCO2 46 VBG pO2 36 VBG HCO3 30 H VBG O2 Saturation 62.0 VBG Base Excess 4.7 Anion Gap 16 Estim Creat Clear Calc 39.5 Estimated GFR 44 Random Glucose 190 H Lactic Acid 1.1 Calcium 9.4 Magnesium 1.4 L* Total Bilirubin 0.4 Direct Bilirubin 0.1 AST 20 ALT 24 Alkaline Phosphatase 60 Troponin I High Sens 24.1 D C-Reactive Protein 0.95 H B-Natriuretic Peptide 653 H Total Protein 7.2 Albumin 3.7 Urine Color Yellow Urine Appearance Clear Urine pH 5.5 Ur Specific [place] 1.020 Urine Protein 30 (1+) H Urine Glucose (UA) >=1000 H Urine Ketones Negative Urine Blood Negative Urine Nitrite Negative Ur Leukocyte Esterase Negative Urine RBC 0-2 Urine WBC 0-5 Ur Squamous Epith Cells 0-2 Urine Bacteria None Seen Hyaline Casts 0-2 Influenza Type A (PCR) NEGATIVE Influenza Type B (PCR) NEGATIVE RSV RNA Qual (PCR) NEGATIVE SARS-CoV-2 RNA (RT-PCR) NEGATIVE Imaging Radiologist's Impressions: Impressions Chest X-Ray 10/14/24 10:53 IMPRESSION: Chronic interstitial prominence with patchy bilateral airspace opacities, similar when compared to the prior examination. Electronically signed by: Petey Redd MD 10/14/2024 12:34 PM [facility] [place] Assessment and Plan (1) COPD exacerbation: Status: Acute Plan Pt is an 79-year-old male with a PMH significant for?HFpEF s/p CardioMEMS, pulmonary HTN, cor pulmonale, idiopathic pulmonary fibrosis, asthma/COPD on 4-5 L home O2, paroxysmal AFib on Coumadin, RA on chronic steroids, insulin- dependent type 2 diabetes, HTN, and CKD 3 who presents to the ED with?increasing shortness a breath, WEBER, and difficulty breathing since last night. Pt will be admitted to the hospital for treatment and further evaluation of acute on chronic hypoxic respiratory failure in the setting of COPD exacerbation. Acute on chronic hypoxic respiratory failure in the setting of COPD exacerbation Pt with SOB and WEBER since last night, little relief from home O2 or inhalers Patient chronically on 4 L NC at home, desatting into 80s on 15L OxyMask, currently desatting to 90s on 6L NC No sepsis: 1 episode tachypnea of 22, but no fever, tachycardia, or leukocytosis; lactic acid WNL at 1.1 Patient without cough, CXR without focal consolidation, no indication to continue antibiotics at this time Will treat with DuoNebs, Solu-Medrol 40 mg b.i.d. Titrate supplemental O2 >90 on home 4L NC Monitor respiratory status HFpEF s/p CardioMEMS Not in acute exacerbation BNP around baseline, CXR negative for pulmonary edema/pleural effusions, pt appear euvolemic Received IV diuretics in the ED Will resume patient's home p.o. Bumex Continue Entresto Monitor on telemetry Paroxysmal AFib Continue diltiazem, metoprolol, warfarin INR therapeutic at 2.1 Follow INR daily Insulin-dependent type [address] on sliding scale insulin, Lantus Continue Jardiance Diabetic diet Pulmonary hypertension Continue sildenafil Rheumatoid arthritis Hold chronic prednisone p.o. Patient receiving IV steroids as above HLD Continue statin GERD Continue PPI Full Code Attending:?Dr. Dumont DVT Prophylaxis: On warfarin Given patient's increased O2 requirements and significant comorbidities, patient is at high risk for decompensation without hospitalization for at least 2 nights for treatment of acute on chronic hypoxic respiratory failure in the setting of COPD exacerbation that will require administration of supplemental oxygen, breathing treatments, and IV steroids. Quality Stroke Does the patient have a stroke diagnosis?: No VTE Prior VTE?: No VTE Risk Level:: Medical - moderate - high VTE Device Contraindication: Treatment Not Indicated VTE Drug Contraindication: N/A - Med Ordered
--- NOTE | 2024-10-14 14:00 | PHA.MEDREC ---
Pharmacy Consult ? Medication Reconciliation Pharmacy has completed the medication reconciliation. Spoke to patient to confirm meds.
[2024-10-14] MEDS: Albuterol/Iprat 2.5/0.5MG 3 ML AMPUL.NEB INHALE ×2 (15:02→20:22)
[2024-10-14] MEDS: Bumetanide 1 MG TABLET PO (15:47)
[2024-10-14] MEDS: Sildenafil Citrate 20 MG TABLET PO ×2 (15:47→21:15)
[2024-10-14 15:52] LABS: Glucose, Whole Blood 238 mg/dL (60-115)
--- NOTE | 2024-10-14 15:53 | PC.NURSE ---
Patient reports feeling better, sating 92% on 8 liters of humidified 02 via gunter. Family at bedside
[2024-10-14] MEDS: 0.9 % Sodium Chloride Flush 3 ML SYRINGE IVFLUSH ×2 (16:02→23:07)
[2024-10-14 17:52] LABS: Glucose, Whole Blood 247 mg/dL (60-115)
[2024-10-14] MEDS: Warfarin Sodium 5 MG TABLET PO (17:54)
[2024-10-14] MEDS: Insulin Lispro 100 UNIT/ML 3 ML VIAL SUBCUT ×2 (17:54→20:43)
--- NOTE | 2024-10-14 17:58 | PC.NURSE ---
Patient reports ruq pain , provider at bedside to assess.
[2024-10-14 20:40] LABS: Glucose, Whole Blood 276 mg/dL (60-115)
[2024-10-14] MEDS: Insulin Glargine,Hum.rec.anlog 100 UNIT/ML 10 ML VIAL 14 UNIT SUBCUT (20:43)
[2024-10-14] MEDS: Metoprolol Tartrate 50 MG TABLET PO (20:43)
[2024-10-14] MEDS: Atorvastatin Calcium 40 MG TABLET PO (20:46)
[2024-10-14] MEDS: Sacubitril/Valsartan 49/51 1 TAB TABLET PO (21:15)
[2024-10-14] MEDS: methylPREDNISolone Sod Succ 40 MG/ML VIAL IVPUSH (22:37)
[2024-10-15] VITALS (15 sets, daily range): BP systolic 116–148; BP diastolic 55–78; PULSE 63–97; RESP 13–20; TEMP 36.3–36.8; O2SAT 84–96; BMI 26.9
[2024-10-15 04:52] LABS: Anion Gap 18 (12-20); Blood Urea Nitrogen 27 mg/dL (9-16); Calcium 9.8 mg/dL (8.4-10.2); Carbon Dioxide 23 mmol/L (22-29); Chloride 107 mmol/L (96-108); Creatinine Clr Calc Pharmacy 36.8; Estimated Glomerular Filt Rate 40; Glucose Random 165 mg/dL (60-115); Potassium 3.7 mmol/L (3.3-5.1); Sodium 144 mmol/L (135-145)
[2024-10-15 05:01] LABS: INTERNATIONAL NORM RATIO 1.8 (0.9-1.1); Prothrombin Time 20.7 SEC (10.9-12.4)
[2024-10-15] MEDS: Omeprazole 20 MG CAPSULE.DR PO (06:22)
[2024-10-15 07:13] LABS: Glucose, Whole Blood 169 mg/dL (60-115)
[2024-10-15] MEDS: Insulin Lispro 100 UNIT/ML 3 ML VIAL SUBCUT ×3 (07:18→17:09)
[2024-10-15] MEDS: Albuterol/Iprat 2.5/0.5MG 3 ML AMPUL.NEB INHALE ×4 (07:42→20:59)
[2024-10-15] MEDS: Bumetanide 1 MG TABLET PO ×2 (08:31→15:52)
[2024-10-15] MEDS: Cholecalciferol (Vitamin D3) 25 MCG TABLET 50 MCG PO (08:31)
[2024-10-15] MEDS: Aspirin Enteric Coated 81 MG TABLET.DR PO (08:31)
[2024-10-15] MEDS: Empagliflozin 10 MG TABLET PO (08:31)
[2024-10-15] MEDS: Metoprolol Tartrate 50 MG TABLET PO ×2 (08:31→20:57)
[2024-10-15] MEDS: 0.9 % Sodium Chloride Flush 3 ML SYRINGE IVFLUSH ×3 (08:32→22:37)
--- NOTE | 2024-10-15 08:36 | PC.NURSE ---
called pharmacy for meds not available in pyxis
[2024-10-15] MEDS: dilTIAZem HCL CD 240 MG CAP.ER.DEG PO (09:03)
[2024-10-15] MEDS: Sacubitril/Valsartan 49/51 1 TAB TABLET PO ×2 (09:03→20:57)
[2024-10-15] MEDS: Folic Acid 1 MG TABLET 0.5 MG PO (09:04)
--- NOTE | 2024-10-15 09:47 | MHC.CM.PN ---
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 PCP is confirmed: Dr. Machado. Pt. has [facility], he could not say # of hours. For DME he has O2 from [employer]. Transport home at DC: TBD. DCP: home with services. CM to follow for DC needs.
[2024-10-15] MEDS: Sildenafil Citrate 20 MG TABLET PO (10:06)
[2024-10-15] MEDS: methylPREDNISolone Sod Succ 40 MG/ML VIAL IVPUSH ×2 (10:06→22:37)
[2024-10-15 11:38] LABS: Glucose, Whole Blood 180 mg/dL (60-115)
[2024-10-15] MEDS: timoloL maleate 0.5 % Oph Sol 5 ML DRBTL 1 DROP EYE-BOTH (11:53)
--- NOTE | 2024-10-15 12:15 | P.PNIM_ITS ---
Subjective Subjective Date of Service: 10/15/24 Interval History: Seen and evaluated feels better overall, still on 5-6L O2 denies any chest pain but has dyspnea with exertion Review of Systems Review of Systems: Yes all other systems are reviewed and are negative Physical Exam 2 Vital Signs: Vital Signs: Last Vital Signs Temp 97.8 F 10/15/24 12:00 Pulse 86 10/15/24 12:00 Resp 18 10/15/24 12:00 BP 145/72 H 10/15/24 12:00 Pulse Ox 91 L 10/15/24 12:00 O2 Del Method Nasal Cannula 10/15/24 12:00 O2 Flow Rate 5 10/15/24 12:00 Oxygen Flow Rate 11 10/14/24 10:48 BMI result Body Mass Index 26.9 Const: Other: Constitutional : Awake, interactive, not in distress Neck : Normal inspection, Supple Cardiovascular : RRR, no JVP, no lower extremity edema Respiratory : good bilateral air entry, expiratory scattered wheezes, on O2 supplement Gastrointestinal: soft, lax, Normal bowel sounds, Non tender Skin : Warm, Dry Neurological : Alert & oriented x3, No focal deficit Objective Data Active Medications Acetaminophen (Acetaminophen 325 Mg Tablet) 650 mg PO Q6H PRN PRN Reason: Pain, Mild (Pain Scale 1-3), fever or headache Albuterol/Ipratropium (Albuterol/Iprat 2.5/0.5mg 3 Ml Ampul.Neb) 3 ml INHALE RQ4H WHILE AWAKE [facility] Last Admin: 10/15/24 11:32 Dose: 3 ml Documented By: RIGO Albuterol/Ipratropium (Albuterol/Iprat 2.5/0.5mg 3 Ml Ampul.Neb) 3 ml INHALE RQ4H WHILE AWAKE PRN PRN Reason: Shortness of Breath/Wheezing Aspirin (Aspirin Enteric Coated 81 Mg Tablet.) 81 mg PO DAILY [facility] Last Admin: 10/15/24 08:31 Dose: 81 mg Documented By: JIN Atorvastatin Calcium (Atorvastatin Calcium 40 Mg Tablet) 40 mg PO BEDTIME [facility] Last Admin: 10/14/24 20:46 Dose: 40 mg Documented By: OSMAN Benzonatate (Benzonatate 100 Mg Capsule) 100 mg PO TID PRN PRN Reason: Cough Bumetanide (Bumetanide 1 Mg Tablet) 1 mg PO BIDWM [facility]; Protocol Last Admin: 10/15/24 08:31 Dose: 1 mg Documented By: JIN Calcium Carbonate (Calcium Carbonate 750 Mg Tab.Chew) 750 mg PO Q4H PRN PRN Reason: Heartburn Diltiazem HCl (Diltiazem Hcl Cd 240 Mg Cap.Er.Deg) 240 mg PO DAILY [facility]; Protocol Last Admin: 10/15/24 09:03 Dose: 240 mg Documented By: JIN Empagliflozin (Empagliflozin 10 Mg Tablet) 10 mg PO DAILY [facility] Last Admin: 10/15/24 08:31 Dose: 10 mg Documented By: JIN Fluticasone/Vilanterol (Fluticasone/Vilanterol 200/25 Blst.W.Dev) 1 puff INHALE RDAILY [facility] Last Admin: 10/15/24 11:38 Dose: Not Given Documented By: RIGO Non-Admin Reason: Med Not Available Folic Acid (Folic Acid 1 Mg Tablet) 0.5 mg PO DAILY [facility] Last Admin: 10/15/24 09:04 Dose: 0.5 mg Documented By: JIN Glucose (Glucose Gel 15 Gm Gel..Gram.) 15 gm PO Q15M PRN; Protocol PRN Reason: per Hypoglycemia Standing Ord. Dextrose (D10) 250 mls @ 750 mls/hr IV Q15M PRN; Protocol PRN Reason: per Hypoglycemia Standing Ord. Insulin Glargine (Insulin Glargine,Hum.Rec.Anlog 100 Unit/Ml 10 Ml Vial) 14 unit SUBCUT BEDTIME [facility] Last Admin: 10/14/24 20:43 Dose: 14 unit Documented By: OSMAN Insulin Human Lispro (Insulin Lispro 100 Unit/Ml 3 Ml Vial) 0 unit SUBCUT QIDACHS [facility]; Protocol Last Admin: 10/15/24 11:52 Dose: 2 unit Documented By: BLACK Magnesium Hydroxide (Milk Of Magnesia 30 Ml Oral.Susp) 30 ml PO DAILY PRN PRN Reason: Constipation Melatonin (Melatonin 3 Mg Tablet) 6 mg PO BEDTIME PRN PRN Reason: Insomnia Methylprednisolone Sodium Succinate (Methylprednisolone Sod Succ 40 Mg/Ml Vial) 40 mg IVPUSH Q12H [facility] Last Admin: 10/15/24 10:06 Dose: 40 mg Documented By: BLACK Metoprolol Tartrate (Metoprolol Tartrate 50 Mg Tablet) 50 mg PO BID [facility]; Protocol Last Admin: 10/15/24 08:31 Dose: 50 mg Documented By: JIN Nitroglycerin (Nitroglycerin 0.4 Mg Tab.Subl) 0.4 mg SUBLINGUAL Q5M PRN PRN Reason: Chest Pain Omeprazole (Omeprazole 20 Mg Capsule.Dr) 20 mg PO DAILY@0630 [facility] Last Admin: 10/15/24 06:22 Dose: 20 mg Documented By: OSMAN Ondansetron HCl (Ondansetron Hcl 4 Mg/2 Ml Vial) 4 mg IVPUSH Q8H PRN PRN Reason: Nausea and Vomiting Sacubitril/Valsartan (Sacubitril/Valsartan 49/51 1 Tab Tablet) 1 tab PO BID [facility]; Protocol Last Admin: 10/15/24 09:03 Dose: 1 tab Documented By: JIN Sildenafil Citrate (Sildenafil Citrate 20 Mg Tablet) 20 mg PO TID [facility] Last Admin: 10/15/24 10:06 Dose: 20 mg Documented By: BLACK Sodium Chloride (0.9 % Sodium Chloride Flush 3 Ml Syringe) 3 ml IVFLUSH QSHIFT [facility] Last Admin: 10/15/24 08:32 Dose: 3 ml Documented By: JIN Timolol Maleate (Timolol Maleate 0.5 % Oph Kyl[place] 5 Ml Drbtl) 1 drop EYE-BOTH DAILY [facility] Last Admin: 10/15/24 11:53 Dose: 1 drop Documented By: BLACK Tramadol HCl (Tramadol Hcl 50 Mg Tablet) 50 mg PO BID PRN PRN Reason: Pain, Moderate(Pain Scale 4-6) Vitamin D (Cholecalciferol (Vitamin D3) 25 Mcg Tablet) 50 mcg PO DAILY [facility] Last Admin: 10/15/24 08:31 Dose: 50 mcg Documented By: JIN Warfarin Sodium (Warfarin Sodium 5 Mg Tablet) 5 mg PO DAILY@1800 [facility] Last Admin: 10/14/24 17:54 Dose: 5 mg Documented By: MORALES Labs 10/14/24 11:06 10/15/24 04:14 Labs: Laboratory Results - last 24 hr 10/14/24 10/14/24 10/14/24 11:06 12:35 15:46 Hold Purple Top PT INR Anion Gap Estim Creat Clear Calc Estimated GFR POC Glucose 238 H Random Glucose Calcium Magnesium Urine Color Yellow Urine Appearance Clear Urine pH 5.5 Ur Specific [place] 1.020 Urine Protein 30 (1+) H Urine Glucose (UA) >=1000 H Urine Ketones Negative Urine Blood Negative Urine Nitrite Negative Ur Leukocyte Esterase Negative Urine RBC 0-2 Urine WBC 0-5 Ur Squamous Epith Cells 0-2 Urine Bacteria None Seen Hyaline Casts 0-2 Influenza Type A (PCR) NEGATIVE Influenza Type B (PCR) NEGATIVE RSV RNA Qual (PCR) NEGATIVE SARS-CoV-2 RNA (RT-PCR) NEGATIVE 10/14/24 10/14/24 10/15/24 17:48 20:36 04:14 Hold Purple Top SEE NOTE PT INR Anion Gap 18 Estim Creat Clear Calc 36.8 Estimated GFR 40 POC Glucose 247 H 276 H Random Glucose 165 H Calcium 9.8 Magnesium 2.0 Urine Color Urine Appearance Urine pH Ur Specific [place] Urine Protein Urine Glucose (UA) Urine Ketones Urine Blood Urine Nitrite Ur Leukocyte Esterase Urine RBC Urine WBC Ur Squamous Epith Cells Urine Bacteria Hyaline Casts Influenza Type A (PCR) Influenza Type B (PCR) RSV RNA Qual (PCR) SARS-CoV-2 RNA (RT-PCR) 10/15/24 10/15/24 10/15/24 04:52 07:09 11:34 Hold Purple Top PT 20.7 H INR 1.8 H Anion Gap Estim Creat Clear Calc Estimated GFR POC Glucose 169 H 180 H Random Glucose Calcium Magnesium Urine Color Urine Appearance Urine pH Ur Specific [place] Urine Protein Urine Glucose (UA) Urine Ketones Urine Blood Urine Nitrite Ur Leukocyte Esterase Urine RBC Urine WBC Ur Squamous Epith Cells Urine Bacteria Hyaline Casts Influenza Type A (PCR) Influenza Type B (PCR) RSV RNA Qual (PCR) SARS-CoV-2 RNA (RT-PCR) Assessment and Plan (1) COPD exacerbation: Status: Acute (2) Acute on chronic respiratory failure with hypoxemia: Status: Acute Plan Pt is an 79-year-old male with a PMH significant for?HFpEF s/p CardioMEMS, pulmonary HTN, cor pulmonale, idiopathic pulmonary fibrosis, asthma/COPD on 4-5 L home O2, paroxysmal AFib on Coumadin, RA on chronic steroids, insulin- dependent type 2 diabetes, HTN, and CKD 3 who presents to the ED with?increasing shortness a breath, WEBER, and difficulty breathing since last night. Pt will be admitted to the hospital for treatment and further evaluation of acute on chronic hypoxic respiratory failure in the setting of COPD exacerbation. Acute on chronic hypoxic respiratory failure in the setting of COPD exacerbation CXR without focal consolidation Continue DuoNebs, Solu-Medrol 40 mg b.i.d. Titrate supplemental O2 >90 on home 4L NC Monitor respiratory status HFpEF s/p CardioMEMS Not in acute exacerbation CXR negative for pulmonary edema/pleural effusions p.o. Bumex Continue Entresto Monitor on telemetry Paroxysmal AFib Continue diltiazem, metoprolol, warfarin INR therapeutic at 1.8 Follow INR daily Insulin-dependent type [address] on sliding scale insulin, Lantus Continue Jardiance Diabetic diet Pulmonary hypertension Continue sildenafil Rheumatoid arthritis Hold chronic prednisone p.o. Patient receiving IV steroids as above HLD Continue statin GERD Continue PPI Full Code DVT Prophylaxis: On warfarin The patient needs overnight hospital stay for treatment of acute on chronic hypoxic respiratory failure in the setting of COPD exacerbation that will require administration of supplemental oxygen, breathing treatments, and IV steroids. Quality Stroke Does the patient have a stroke diagnosis?: No VTE Prior VTE?: No VTE Risk Level:: Medical - moderate - high VTE Device Contraindication: Treatment Not Indicated VTE Drug Contraindication: N/A - Med Ordered
[2024-10-15] MEDS: Sildenafil Citrate 20 MG TABLET 40 MG PO ×2 (15:52→20:59)
[2024-10-15 16:57] LABS: Glucose, Whole Blood 187 mg/dL (60-115)
[2024-10-15] MEDS: Warfarin Sodium 5 MG TABLET PO (17:42)
[2024-10-15 20:36] LABS: Glucose, Whole Blood 145 mg/dL (60-115)
[2024-10-15] MEDS: Atorvastatin Calcium 40 MG TABLET PO (20:58)
[2024-10-15] MEDS: Insulin Glargine,Hum.rec.anlog 100 UNIT/ML 10 ML VIAL 14 UNIT SUBCUT (20:59)
[2024-10-16] VITALS (12 sets, daily range): BP systolic 109–142; BP diastolic 52–64; PULSE 58–91; RESP 16–20; TEMP 36.1–36.9; O2SAT 83–94
[2024-10-16] MEDS: Omeprazole 20 MG CAPSULE.DR PO (05:52)
[2024-10-16 07:41] LABS: Glucose, Whole Blood 156 mg/dL (60-115)
[2024-10-16] MEDS: Insulin Lispro 100 UNIT/ML 3 ML VIAL SUBCUT ×3 (07:55→17:13)
[2024-10-16 07:57] LABS: INTERNATIONAL NORM RATIO 2.3 (0.9-1.1); Prothrombin Time 26.3 SEC (10.9-12.4)
[2024-10-16] MEDS: Sildenafil Citrate 20 MG TABLET 40 MG PO ×3 (07:57→20:57)
[2024-10-16] MEDS: Empagliflozin 10 MG TABLET PO (07:57)
[2024-10-16] MEDS: Aspirin Enteric Coated 81 MG TABLET.DR PO (07:57)
[2024-10-16] MEDS: Metoprolol Tartrate 50 MG TABLET PO ×2 (07:57→20:56)
[2024-10-16] MEDS: Cholecalciferol (Vitamin D3) 25 MCG TABLET 50 MCG PO (07:57)
[2024-10-16] MEDS: dilTIAZem HCL CD 240 MG CAP.ER.DEG PO (07:57)
[2024-10-16] MEDS: Folic Acid 1 MG TABLET 0.5 MG PO (07:58)
[2024-10-16] MEDS: Sacubitril/Valsartan 49/51 1 TAB TABLET PO ×2 (07:58→20:54)
[2024-10-16] MEDS: timoloL maleate 0.5 % Oph Sol 5 ML DRBTL 1 DROP EYE-BOTH (07:58)
[2024-10-16] MEDS: Bumetanide 1 MG TABLET PO ×2 (07:58→15:43)
[2024-10-16] MEDS: 0.9 % Sodium Chloride Flush 3 ML SYRINGE IVFLUSH ×2 (08:02→15:45)
[2024-10-16] MEDS: Albuterol/Iprat 2.5/0.5MG 3 ML AMPUL.NEB INHALE ×4 (08:35→19:51)
[2024-10-16] MEDS: Fluticasone/Vilanterol 200/25 BLST.W.DEV 1 PUFF INHALE (08:41)
[2024-10-16 11:16] LABS: Glucose, Whole Blood 154 mg/dL (60-115)
[2024-10-16] MEDS: methylPREDNISolone Sod Succ 40 MG/ML VIAL IVPUSH ×2 (11:49→22:09)
--- NOTE | 2024-10-16 14:50 | P.PNIM_ITS ---
Subjective Subjective Date of Service: 10/16/24 Interval History: Seen and evaluated feels better overall, still on 5-6L O2, needs up to 10L with ambulation gets hypoxic with exertion denies any chest pain but has dyspnea with exertion Review of Systems Review of Systems: Yes all other systems are reviewed and are negative Physical Exam 2 Vital Signs: Vital Signs: Last Vital Signs Temp 97.8 F 10/16/24 11:36 Pulse 60 10/16/24 11:50 Resp 16 10/16/24 11:50 BP 128/60 10/16/24 11:36 Pulse Ox 83 L 10/16/24 11:49 O2 Del Method Oxymizer 10/16/24 11:36 O2 Flow Rate 5.5 10/16/24 11:36 Oxygen Flow Rate 11 10/14/24 10:48 BMI result Body Mass Index 26.9 Const: Other: Constitutional : Awake, interactive, not in distress Neck : Normal inspection, Supple Cardiovascular : RRR, no JVP, no lower extremity edema Respiratory : decreased bilateral air entry, fine expiratory scattered wheezes, on O2 supplement Gastrointestinal: soft, lax, Normal bowel sounds, Non tender Skin : Warm, Dry Neurological : Alert & oriented x3, No focal deficit Objective Data Active Medications Acetaminophen (Acetaminophen 325 Mg Tablet) 650 mg PO Q6H PRN PRN Reason: Pain, Mild (Pain Scale 1-3), fever or headache Albuterol/Ipratropium (Albuterol/Iprat 2.5/0.5mg 3 Ml Ampul.Neb) 3 ml INHALE RQ4H WHILE AWAKE [facility] Last Admin: 10/16/24 11:50 Dose: 3 ml Documented By: OBI Albuterol/Ipratropium (Albuterol/Iprat 2.5/0.5mg 3 Ml Ampul.Neb) 3 ml INHALE RQ4H WHILE AWAKE PRN PRN Reason: Shortness of Breath/Wheezing Aspirin (Aspirin Enteric Coated 81 Mg Tablet.) 81 mg PO DAILY [facility] Last Admin: 10/16/24 07:57 Dose: 81 mg Documented By: BLACK Atorvastatin Calcium (Atorvastatin Calcium 40 Mg Tablet) 40 mg PO BEDTIME [facility] Last Admin: 10/15/24 20:58 Dose: 40 mg Documented By: KATHY Benzonatate (Benzonatate 100 Mg Capsule) 100 mg PO TID PRN PRN Reason: Cough Bumetanide (Bumetanide 1 Mg Tablet) 1 mg PO BIDWM [facility]; Protocol Last Admin: 10/16/24 07:58 Dose: 1 mg Documented By: BLACK Calcium Carbonate (Calcium Carbonate 750 Mg Tab.Chew) 750 mg PO Q4H PRN PRN Reason: Heartburn Diltiazem HCl (Diltiazem Hcl Cd 240 Mg Cap.Er.Deg) 240 mg PO DAILY [facility]; Protocol Last Admin: 10/16/24 07:57 Dose: 240 mg Documented By: BLACK Empagliflozin (Empagliflozin 10 Mg Tablet) 10 mg PO DAILY [facility] Last Admin: 10/16/24 07:57 Dose: 10 mg Documented By: BLACK Fluticasone/Vilanterol (Fluticasone/Vilanterol 200/25 Blst.W.Dev) 1 puff INHALE RDAILY [facility] Last Admin: 10/16/24 08:41 Dose: 1 puff Documented By: OBI Folic Acid (Folic Acid 1 Mg Tablet) 0.5 mg PO DAILY [facility] Last Admin: 10/16/24 07:58 Dose: 0.5 mg Documented By: BLACK Glucose (Glucose Gel 15 Gm Gel..Gram.) 15 gm PO Q15M PRN; Protocol PRN Reason: per Hypoglycemia Standing Ord. Dextrose (D10) 250 mls @ 750 mls/hr IV Q15M PRN; Protocol PRN Reason: per Hypoglycemia Standing Ord. Insulin Glargine (Insulin Glargine,Hum.Rec.Anlog 100 Unit/Ml 10 Ml Vial) 14 unit SUBCUT BEDTIME [facility] Last Admin: 10/15/24 20:59 Dose: 14 unit Documented By: KATHY Insulin Human Lispro (Insulin Lispro 100 Unit/Ml 3 Ml Vial) 0 unit SUBCUT QIDACHS [facility]; Protocol Last Admin: 10/16/24 11:48 Dose: 2 unit Documented By: BLACK Magnesium Hydroxide (Milk Of Magnesia 30 Ml Oral.Susp) 30 ml PO DAILY PRN PRN Reason: Constipation Melatonin (Melatonin 3 Mg Tablet) 6 mg PO BEDTIME PRN PRN Reason: Insomnia Methylprednisolone Sodium Succinate (Methylprednisolone Sod Succ 40 Mg/Ml Vial) 40 mg IVPUSH Q12H [facility] Last Admin: 10/16/24 11:49 Dose: 40 mg Documented By: BLACK Metoprolol Tartrate (Metoprolol Tartrate 50 Mg Tablet) 50 mg PO BID [facility]; Protocol Last Admin: 10/16/24 07:57 Dose: 50 mg Documented By: BLACK Nitroglycerin (Nitroglycerin 0.4 Mg Tab.Subl) 0.4 mg SUBLINGUAL Q5M PRN PRN Reason: Chest Pain Omeprazole (Omeprazole 20 Mg Capsule.Dr) 20 mg PO DAILY@0630 [facility] Last Admin: 10/16/24 05:52 Dose: 20 mg Documented By: KATHY Ondansetron HCl (Ondansetron Hcl 4 Mg/2 Ml Vial) 4 mg IVPUSH Q8H PRN PRN Reason: Nausea and Vomiting Sacubitril/Valsartan (Sacubitril/Valsartan 49/51 1 Tab Tablet) 1 tab PO BID [facility]; Protocol Last Admin: 10/16/24 07:58 Dose: 1 tab Documented By: BLACK Sildenafil Citrate (Sildenafil Citrate 20 Mg Tablet) 40 mg PO TID [facility] Last Admin: 10/16/24 07:57 Dose: 40 mg Documented By: BLACK Sodium Chloride (0.9 % Sodium Chloride Flush 3 Ml Syringe) 3 ml IVFLUSH QSHIFT [facility] Last Admin: 10/16/24 08:02 Dose: 3 ml Documented By: BLACK Timolol Maleate (Timolol Maleate 0.5 % Oph [place]yl[place] 5 Ml Drbtl) 1 drop EYE-BOTH DAILY [facility] Last Admin: 10/16/24 07:58 Dose: 1 drop Documented By: BLACK Tramadol HCl (Tramadol Hcl 50 Mg Tablet) 50 mg PO BID PRN PRN Reason: Pain, Moderate(Pain Scale 4-6) Vitamin D (Cholecalciferol (Vitamin D3) 25 Mcg Tablet) 50 mcg PO DAILY [facility] Last Admin: 10/16/24 07:57 Dose: 50 mcg Documented By: BLACK Warfarin Sodium (Warfarin Sodium 5 Mg Tablet) 5 mg PO DAILY@1800 [facility] Last Admin: 10/15/24 17:42 Dose: 5 mg Documented By: BLACK Labs 10/14/24 11:06 10/15/24 04:14 Labs: Laboratory Results - last 24 hr 10/15/24 10/15/24 10/16/24 16:52 20:32 07:26 PT 26.3 H D INR 2.3 H POC Glucose 187 H 145 H 10/16/24 10/16/24 07:36 11:06 PT INR POC Glucose 156 H 154 H Microbiology Microbiology Results: Microbiology 10/14/24 11:34 Blood Culture - Preliminary Blood - Venous No growth after 48 hours. 10/14/24 11:34 Blood Culture - Preliminary Blood - Venous No growth after 48 hours. Assessment and Plan (1) Acute on chronic respiratory failure with hypoxemia: Status: Acute (2) COPD exacerbation: Status: Acute Plan Pt is an 79-year-old male with a PMH significant for?HFpEF s/p CardioMEMS, pulmonary HTN, cor pulmonale, idiopathic pulmonary fibrosis, asthma/COPD on 4-5 L home O2, paroxysmal AFib on Coumadin, RA on chronic steroids, insulin- dependent type 2 diabetes, HTN, and CKD 3 who presents to the ED with?increasing shortness a breath, WEBER, and difficulty breathing since last night. Pt will be admitted to the hospital for treatment and further evaluation of acute on chronic hypoxic respiratory failure in the setting of COPD exacerbation. Acute on chronic hypoxic respiratory failure in the setting of COPD exacerbation CXR without focal consolidation Continue DuoNebs, Solu-Medrol 40 mg b.i.d. Titrate supplemental O2 >90 on home 4L NC Monitor respiratory status PT rec pulmonary rehab placement HFpEF s/p CardioMEMS Not in acute exacerbation CXR negative for pulmonary edema/pleural effusions p.o. Bumex Continue Entresto Monitor on telemetry Paroxysmal AFib Continue diltiazem, metoprolol, warfarin INR therapeutic at 1.8 Follow INR daily Insulin-dependent type [address] on sliding scale insulin, Lantus Continue Jardiance Diabetic diet Pulmonary hypertension Continue sildenafil Rheumatoid arthritis Hold chronic prednisone p.o. Patient receiving IV steroids as above HLD Continue statin GERD Continue PPI Full Code DVT Prophylaxis: On warfarin The patient needs overnight hospital stay for treatment of acute on chronic hypoxic respiratory failure in the setting of COPD exacerbation that will require administration of supplemental oxygen, breathing treatments, and IV steroids. Quality Stroke Does the patient have a stroke diagnosis?: No VTE Prior VTE?: No VTE Risk Level:: Medical - moderate - high VTE Device Contraindication: Treatment Not Indicated VTE Drug Contraindication: N/A - Med Ordered
--- NOTE | 2024-10-16 15:17 | MHC.CM.PN ---
CM spoke to Pt and his , along with child welfare consultant to ask about which STR he will accept. We discussed [facility], he said he has been there before and it was not good care. He and his really want him to go back home with [facility] services. MD and RT notified.
[2024-10-16 16:59] LABS: Glucose, Whole Blood 220 mg/dL (60-115)
[2024-10-16] MEDS: Warfarin Sodium 5 MG TABLET PO (17:58)
[2024-10-16] MEDS: Atorvastatin Calcium 40 MG TABLET PO (20:56)
[2024-10-16] MEDS: Insulin Glargine,Hum.rec.anlog 100 UNIT/ML 10 ML VIAL 14 UNIT SUBCUT (20:57)
[2024-10-16 21:07] LABS: Glucose, Whole Blood 137 mg/dL (60-115)
[2024-10-17] VITALS: BP 136/60; PULSE 68; RESP 20; TEMP 36.3; O2SAT 92
[2024-10-17 03:21] VITALS: BP 132/64; PULSE 58; RESP 20; TEMP 36.3; O2SAT 96
[2024-10-17] MEDS: Omeprazole 20 MG CAPSULE.DR PO (06:06)
[2024-10-17] MEDS: Albuterol/Iprat 2.5/0.5MG 3 ML AMPUL.NEB INHALE (07:35)
[2024-10-17] MEDS: Fluticasone/Vilanterol 200/25 BLST.W.DEV 1 PUFF INHALE (07:35)
[2024-10-17 07:37] VITALS: PULSE 62; RESP 18; O2SAT 95
[2024-10-17 07:38] LABS: Glucose, Whole Blood 138 mg/dL (60-115)
[2024-10-17 07:41] VITALS: BP 135/67; PULSE 72; RESP 20; TEMP 36.3; O2SAT 97
--- NOTE | 2024-10-17 09:02 | PM.DS ---
DS: Providers Provider Date of Service: 10/17/24 Date of admission: 10/14/24 14:52 Date of discharge: 10/17/24 Primary care physician: Moris Machado III, MD DS: Diagnosis Discharge Diagnosis (1) Acute on chronic respiratory failure with hypoxemia: Status: Acute (2) COPD exacerbation: Status: Acute DS: Summary Hospital Course Hospital Course: from initial hpi: 79-year-old male with a PMH significant for?HFpEF s/p CardioMEMS, pulmonary HTN, cor pulmonale, idiopathic pulmonary fibrosis, asthma/COPD on 4-5 L home O2, paroxysmal AFib on Coumadin, RA on chronic steroids, insulin-dependent type 2 diabetes, HTN, and CKD 3 who presents to the ED with?increasing shortness a breath, WEBER, and difficulty breathing since last night. Patient reports suddenly became short of breath last night as he was getting ready to go to bed. Increased his oxygen from 4 L to 5 L with some improvement. This morning symptoms persisted and patient was increasingly out of breath and having difficulty breathing. EMS found him satting into the 70s on RA and placed non-rebreather. Patient denies any other significant medical complaints. Chronic chills, but no fever. No significant cough. Denies lower extremity edema. No nausea, vomiting, abdominal pain. Denies chest pain/pressure, palpitations. Currently patient states he feels much better after receiving treatments in the ED, though continues to desat into the 80s on 6 L NC. Reports has been compliant with his home medications. Last CardioMEMS reading on 09/28 which was within proper limits for him and no change in his diuretics were made. In the ED pt was tachypneic up to 22 and slightly hypertensive up to 143/50, initially satting in the 70s on RA and 86% on 13L OxyMask, now improved to 90% on 6 L NC. Labs were significant for magnesium 1.4, BNP 653 (around baseline), chronic leukocytosis of 11.1, sodium 146, and creatinine around baseline at 1.54. VBG reassuring at pH 7.41, pCO2 46, and bicarb 30. UA negative for UTI. Tested negative for flu, COVID, RSV. CXR showed chronic interstitial prominence with patchy bilateral airspace opacities, similar to previous. EKG demonstrated sinus with premature supraventricular complexes and new RBBB. Pt was treated with Solu-Medrol, DuoNebs, Mag sulfate, bumetanide, and azithromycin. Pt will be admitted to the hospital for treatment and further evaluation of acute on chronic hypoxic respiratory failure in the setting of COPD exacerbation. hospital course: Patient was admitted for acute on chronic hypoxic respiratory failure secondary to COPD/interstitial lung disease with acute decompensation. Was treated with IV steroids, bronchodilators. Patient's shortness of breath and oxygen returned to baseline of 4 L, was seen by physical therapy recommended pulmonary rehab, however, patient is not interested at this time and would like to pursue rehab at home. For chronic diastolic CHF he was continued with a p.o. Bumex and appears euvolemic at this time. For paroxysmal atrial fibrillation was continued on diltiazem, metoprolol, warfarin. For diabetes was continued on basal bolus insulin. For pulmonary hypertension continue on sildenafil. For rheumatoid arthritis resume maintenance prednisone on discharge. For hyperlipidemia continue on statin. For GERD continued on PPI. Patient is feeling better will be discharged home. Time Attestation Discharge Coordination Time (in mins): 32 Quality: Safe Use of Opioids Does Pt have an Active Cancer Diagnosis on the Problem List?: No Quality: Stroke Does the patient have a stroke diagnosis?: No Physical Exam Vital Signs: Vital Signs: Last Vital Signs Temp 97.4 F 10/17/24 07:41 Pulse 72 10/17/24 07:41 Resp 20 10/17/24 07:41 BP 135/67 10/17/24 07:41 Pulse Ox 97 10/17/24 07:41 O2 Del Method Oxymizer 10/17/24 07:41 O2 Flow Rate 6 10/17/24 07:41 Oxygen Flow Rate 11 10/14/24 10:48 BMI result Body Mass Index 26.9 General: AO X 3, no acute distress Resp: diminished with crackles bilateral, no accessory muscles used CVS: S1,S2,RRR GI: soft, non tender, non distended Neuro: motor grossly intact, alert Psych: appropriate affect, appropriate insight DS: Data Data Completed and Pending Completed studies during hospitalization [Text1]: Procedures Assistance with Respiratory Ventilation, Less than 24 Consecutive Hours, Continuous Positive Airway Pressure (12/14/23) Labs on day of discharge: Laboratory Results - last 24 hr 10/16/24 10/16/24 10/16/24 11:06 16:55 20:54 POC Glucose 154 H 220 H 137 H 10/17/24 07:33 POC Glucose 138 H Preliminary micro results at discharge 10/14/24 11:34 Blood Culture - Preliminary Blood - Venous No growth after 48 hours. 10/14/24 11:34 Blood Culture - Preliminary Blood - Venous No growth after 48 hours. Discharge Plan Discharge Anticipated Discharge Date/Time: 10/17/24 09:00 Patient Disposition: Home Health Service Discharge Diagnosis: copd/ild Referrals: Moris Machado III, MD [Primary Care Provider] - 1 Week Shon Samson MD [Physician] - 1 Week Discharge Medications: Continued bumetanide 1 mg tablet 1 mg PO BID Qty: 60 5RF fluticasone furoate-vilanterol [Breo Ellipta] 200-25 mcg/dose blister with device 1 inh inhalation DAILY 30 Days Qty: 60 11RF sildenafil (pulm.hypertension) [Revatio] 20 mg tablet 40 mg PO TID 30 Days Qty: 180 11RF Rx Instructions: administer doses at least 4-6 hours apart folic acid 400 mcg tablet 400 mcg PO DAILY tramadol 50 mg tablet 1 tab PO BID PRN (Reason: Pain, Moderate) timolol maleate 0.5 % drops 1 drp ophthalmic (eye) DAILY rosuvastatin 10 mg tablet 1 tab PO BEDTIME Humira(CF) Pen 40 mg/0.4 mL pen injector kit 40 mg subcut Q2W aspirin 81 mg Tablet,Delayed Release (Dr/Ec) 81 mg PO DAILY nitroglycerin 0.4 mg tablet, sublingual 0.4 mg sublingual Q5M PRN (Reason: Chest Pain) Entresto 49-51 mg Tablet 1 tab PO BID Qty: 30 1RF Protocol: Hold for SBP< HOLD for SBP < : 90 albuterol sulfate 2.5 mg /3 mL (0.083 %) solution for nebulization 2.5 mg inhalation Q4H PRN (Reason: shortness of breath or wheezing) Rx Instructions: J44.1 COPD with acute exacerbation. pantoprazole 40 mg tablet,delayed release (DR/EC) 40 mg PO DAILY@0630 cholecalciferol (vitamin D3) 50 mcg (2,000 unit) tablet 50 mcg PO DAILY prednisone 10 mg tablet 10 mg PO DAILY Rx Instructions: Take prednisone 40 mg daily for 5 days Then 30 mg daily for 5 days Then 20 mg daily for 5 days Then 10 mg daily for 5 days Then resume 7.5 mg daily as before albuterol sulfate [Ventolin HFA] 90 mcg/actuation HFA aerosol inhaler 2 puff INHALATION Q4H PRN (Reason: wheezing) warfarin 5 mg tablet 5 mg PO DAILY@1800 metoprolol tartrate 50 mg tablet 50 mg PO BID Jardiance 10 mg tablet 10 mg PO DAILY insulin glargine [Lantus Solostar U-100 Insulin] 100 unit/mL (3 mL) insulin pen 20 unit subcut BEDTIME (DME) nebulizers Misc See Rx Instructions .Route Rx Instructions: As directed (DME) Oxygen Home Use Kit See Rx Instructions .Route Rx Instructions: As directed diltiazem HCl 240 mg capsule,extended release 24hr 240 mg PO DAILY Protocol: Hold for SBP/HR < HOLD for SBP < : 90 HOLD for HR < : 60 Discharge Orders: Discharge Order (Routine); Ordered 10/17/24 Ordered By: Suhail Murphy Diet: Advance to usual diet Activity on Discharge: As tolerated Stand Alone Forms: Patient Portal Discharge page Print Language: Latvian Care Plan Goals: manage ild, copd Health Concerns: ild, copd Plan of Treatment: continue O2 with oxymizer, prednisone maintenance, pulmonary follow up, rehab at home Assessment: see above
[2024-10-17 09:10] VITALS: BP 142/64; PULSE 72
[2024-10-17] MEDS: Folic Acid 1 MG TABLET 0.5 MG PO (09:10)
[2024-10-17] MEDS: Metoprolol Tartrate 50 MG TABLET PO (09:10)
[2024-10-17] MEDS: Sildenafil Citrate 20 MG TABLET 40 MG PO (09:10)
[2024-10-17] MEDS: Cholecalciferol (Vitamin D3) 25 MCG TABLET 50 MCG PO (09:10)
[2024-10-17 09:11] VITALS: BP 142/64
[2024-10-17] MEDS: Bumetanide 1 MG TABLET PO (09:11)
[2024-10-17] MEDS: Aspirin Enteric Coated 81 MG TABLET.DR PO (09:11)
[2024-10-17] MEDS: dilTIAZem HCL CD 240 MG CAP.ER.DEG PO (09:11)
[2024-10-17] MEDS: Sacubitril/Valsartan 49/51 1 TAB TABLET PO (09:11)
[2024-10-17] MEDS: Empagliflozin 10 MG TABLET PO (09:11)
[2024-10-17 09:14] LABS: INTERNATIONAL NORM RATIO 2.7 (0.9-1.1); Prothrombin Time 31.3 SEC (10.9-12.4)
[2024-10-17] MEDS: timoloL maleate 0.5 % Oph Sol 5 ML DRBTL 1 DROP EYE-BOTH (09:14)
[2024-10-17] MEDS: 0.9 % Sodium Chloride Flush 3 ML SYRINGE IVFLUSH ×2 (09:15)
--- NOTE | 2024-10-17 10:13 | MHC.CM.PN ---
PT MEDICALLY CLEARED FOR DC HOME W/NEW [facility] FOR SN/PT AND RESUMP OF [facility] FOR HOME O2 AND [employer], PT HAS 2 PORTABLE O2 TANKS AT BEDSIDE, PT REPORTS VIA SUBSTANCE ABUSE RN HIS WILL TRANSPORT PT HOME.
--- NOTE | 2024-10-17 11:21 | P.F2F_ITS ---
Service Date Service Date: 10/17/24 Encounter Date of encounter: 10/17/24 Reasons for Services Signs and symptoms assessed: sob with minimal effort Reason for senior care: medication management, medication treatment and teach disease management Reason for physical therapy: home safety and mobility, therapeutic exercises and energy conservation Homebound: Leaving the home is medically contraindicated at this time without the asist of a device and/or another person due th the listed conditions above and below. Reason homebound: shortness of breath with minimal effort Certification: Based on the above findings, I certify that this patient is confined to the home and needs intermittent senior care care, physical therapy and/or speech therapy, or continues to need occupational therapy. The patient is under my care, and I have initiated the establishment of the plan of care. The patient will be followed by a physician who will periodically review the plan of care. Time Spent With Patient Time: Total time managing care of this patient today ____ minutes.
== END 2024-10-17 12:30 | disposition home health service (06) | DRG 190 ==
LOC: HO.ED 11:44 → HO.EDOVER 14:52 → HO.IMC 10-15 07:58
PROVIDERS: Student in an Organized Health Care Education/Training Program; Admitting Provider Student in an Organized Health Care Education/Training Program; Emergency Provider Emergency Medicine; PCP Internal Medicine; Visit Provider Internal Medicine
DX: J44.1 Chronic obstructive pulmonary disease with (acute) exacerbation (principal); J96.21 Acute and chronic respiratory failure with hypoxia; I13.0 Hypertensive heart and chronic kidney disease with heart failure and stage 1 through stage 4 chronic kidney disease, or unspecified chronic kidney disease; Z95.811 Presence of heart assist device; I50.32 Chronic diastolic (congestive) heart failure; J84.9 Interstitial pulmonary disease, unspecified; E78.5 Hyperlipidemia, unspecified; I48.0 Paroxysmal atrial fibrillation; M06.9 Rheumatoid arthritis, unspecified; E11.22 Type 2 diabetes mellitus with diabetic chronic kidney disease; N18.30 Chronic kidney disease, stage 3 unspecified; Z20.822 Contact with and (suspected) exposure to COVID-19; Z99.81 Dependence on supplemental oxygen; Z79.4 Long term (current) use of insulin; Z79.01 Long term (current) use of anticoagulants; Z79.51 Long term (current) use of inhaled steroids; Z79.52 Long term (current) use of systemic steroids; Z79.899 Other long term (current) drug therapy
CPT/HCPCS: 0241U; 36415; 71045; 80048; 80076; 81001; 82803; 82947; 83605; 83735; 83880; 84484; 85025; 85610; 86140; 87040; 93005; 94640; 97116; 97161; 99285; J0456; J1939; J2919; J3475

== ENCOUNTER → 2024-10-14 10:53 | Outpatient (BNV) | payer OTHER, SELFPAY | PROVIDERS: Admitting Provider Student in an Organized Health Care Education/Training Program; Emergency Provider Emergency Medicine; Visit Provider Internal Medicine Cardiovascular Disease | DX: R94.31 Abnormal electrocardiogram [ECG] [EKG] (principal) | CPT/HCPCS: 93010 ==

== ENCOUNTER → 2024-10-14 14:52 | Outpatient (BNV) | payer OTHER, SELFPAY | PROVIDERS: Admitting Provider Student in an Organized Health Care Education/Training Program; Emergency Provider Emergency Medicine; Visit Provider Student in an Organized Health Care Education/Training Program | DX: J96.21 Acute and chronic respiratory failure with hypoxia (principal); J44.1 Chronic obstructive pulmonary disease with (acute) exacerbation | CPT/HCPCS: 99223; 99232; 99239; G0180 ==

== ENCOUNTER → 2024-10-30 23:59 | Outpatient (BNV) | payer OTHER, SELFPAY ==
--- NOTE | 2024-11-09 12:05 | A.OFFVIS_ITS ---
Intake Visit Reasons: Remote Cardiomems- [facility] Allergies No Known Allergies Allergy (Unknown, Verified 10/14/24 10:53) NOT APPLICABLE PFSH Medical History (Updated 10/25/24 @ 00:02 by Preeti Pelayo) COPD exacerbation Pulmonary nodule 1 cm or greater in diameter Combined pulmonary fibrosis and emphysema (CPFE) (HFpEF) heart failure with preserved ejection fraction IPF (idiopathic pulmonary fibrosis) COPD (chronic obstructive pulmonary disease) Reactive airway disease Pulmonary hypertension Chronic respiratory failure CHF (congestive heart failure) ILD (interstitial lung disease) Acute exacerbation of CHF (congestive heart failure) SVT (supraventricular tachycardia) CHF exacerbation Chronic anticoagulation Atrial fibrillation Chronic hypoxemic respiratory failure Hypertension Rheumatoid arthritis Lymphadenopathy Surgical History Hx of colonoscopy Social History Household Members: Spouse and Children Housing: House Do you presently have visiting nurse or other home services: No Alcohol intake: former Comment: patient rings appropriately Patient Tobacco Use Status: Former Tobacco user Tobacco use type: Cigarette Years Smoked: 40 e-Cigarette/Vaping Use: Former Use Second Hand Smoke Exposure: No Advance Directives Date on File: 06/27/23 service: No Current occupational status: retired Office Procedures Cardiac Device Check Cardiac Device Check Details: Monitoring period dates: 09/28/24 - 10/30/24 Optimal PA pressure range: ADDY goal 45mmhg Procedure code: 52549 BACKGROUND: Tommy is implanted with the CardioMEMS PA Sensor.? I use this technology to monitor PA pressures on a weekly basis to ensure patients are within their optimal range to prevent decompensation.? SUMMARY:? I utilized the remote monitoring platform ([employer] to set optimal targets for pulmonary artery pressure thresholds as part of acute and chronic m anagement of patient?s heart failure. During the period indicated above, I monitored the patient?s pulmonary artery pressures weekly via trend analysis and notification reports which provide alerts when patient?s PA pressures were outside of range to prompt immediate action in medication changes and communications.? The weekly reports are archived in the [employer] system which serve as a parallel record to document weekly PA pressures, medication changes, and clinical notes. I have reviewed readings on 09/28, 10/05, 10/12, 10/19, 12/3. ADDY ranging between 44-55mmhg. C admit for resp failure with hypoxia. No diuretic changes. 37892 - Remote monitoring of wireless pulmonary artery pressure sensor Procedure code (CPT) selection complete Assessment & Plan Assessment & Plan (1) Presence of CardioMEMS HF system: Code(s): Z95.818 - Presence of other cardiac implants and grafts Category: Medical Plan: monthly report Coding Level of Care Code Procedure Only Diagnoses Presence of CardioMEMS HF system Z95.818 CPT Codes Cardiac Device Check - Cardiac Device 17: 19963 - Remote monitoring of wireless pulmonary artery pressure sensor ([id number])
== END ==
PROVIDERS: PCP Internal Medicine; Visit Provider Nurse Practitioner Family
DX: Z45.09 Encounter for adjustment and management of other cardiac device (principal)
CPT/HCPCS: 93264

== ENCOUNTER 2024-11-08 16:04 | Outpatient (REF) | payer OTHER, SELFPAY ==
--- OUTSIDE RECORDS SUMMARY | 2024-11-08 16:07 | XMS_ITS | Continuity of Care Document ---
Author Organization [facility] Address [address] [place] [address] Phone Care Team Providers Care Holistic Nutritionist Name Role Phone Unavailable Unavailable Unavailable Procedures [...] Location Reason(s) For Visit Diagnoses Date Provider Providers Copied on Encounter [facility], [address] [place], [place], [id number], [place] tel:[phone] [facility] No Information 1-200 5 No Information Family History Family Member Type Diagnosis Age At Onset No Information Immunizations Vaccine Date Status Comments flu (split) (3 yrs or older) administered Source: New Immunization Record Payers Payer name Insurance type Covered libertarian ID Authoriza tion(s) [facility] Medicaid [id number] Social History Type Description Quantity Date Captured Comments Alcohol Use Details Unknown Caffeine Use Details Unknown Tobacco Use Status No Information Smoking Status No Information Sex Male Chief Complaint And Reason For Visit No Information Reason For Referral Reason For Referral No Information History Of Present Illness Encounter Date Complaint History Of Prese nt Illness No Information Functional Status Date Functional Assessmen t No Information Instructions Date Instruction Additional Infor mation No Information Assessments Type Assessment Date No Information Patient Care Teams Name Effective Dates (start - stop) Status Members No Information
== END 2024-11-08 16:05 | disposition home or self-care (01) ==
LOC: HO.CT 16:04
PROVIDERS: PCP Internal Medicine; Visit Provider Hospitalist
DX: R91.1 Solitary pulmonary nodule (principal)
CPT/HCPCS: 71250

== ENCOUNTER → 2024-11-08 16:10 | Outpatient (BNV) | payer OTHER, SELFPAY | PROVIDERS: PCP Internal Medicine; Visit Provider Radiology Diagnostic Radiology | DX: R91.1 Solitary pulmonary nodule (principal) | CPT/HCPCS: 71250 ==

== ENCOUNTER 2024-11-15 10:56 | Outpatient (AMB) | payer OTHER, SELFPAY ==
--- OUTSIDE RECORDS SUMMARY | 2024-11-15 11:00 | XMS_ITS | Continuity of Care Document ---
Author Organization [facility] Address [address] [place] [address] Phone Care Team Providers Care Holistic Pulser Name Role Phone Unavailable Unavailable Unavailable Procedures [...] Diagnoses Date Provider Providers Copied on Encounter [facility], [address] [place], [place], [id number], [place] tel:[phone] [facility] No Information 1-200 5 No Information Family History Family Member Type Diagnosis Age At Onset No Information Immunizations Vaccine Date Status Comments flu (split) (3 yrs or older) administered Source: New Immunization Record Payers Payer name Insurance type Covered alliance party ID Authoriza tion(s) [facility] Medicaid [id number] Social History Type Description Quantity Date Captured [...]
[2024-11-15 11:01] VITALS: BP 118/60; PULSE 70; O2SAT 91; BMI 26.9
--- NOTE | 2024-11-15 11:01 | A.OFFVIS_ITS ---
Vital Signs 11/15/24 11:01 Height 5 ft 10 in Weight 187 lb 6.287 oz BMI 26.9 BP 118/60 Blood Pressure Location Lt brachial Position Sitting Pulse 70 Pulse Source Pulse Oximeter Pulse Oximetry (%) 91 L Oxygen Delivery Method Nasal Cannula Oxygen Flow Rate 4 Intake Visit Reasons: Pulmonary HTN Allergies No Known Allergies Allergy (Unknown, Verified 11/15/24 11:04) NOT APPLICABLE HPI Comments Details: The patient is 79-year-old gentleman with a known history of emphysema, interstitial lung disease along with severe pulmonary hypertension on hot oxygen requirements. He has been followed closely at [facility]. The patient was evaluated and placed on prednisone, initially starting at 10 mg and now 7.5 mg in part to treat the interstitial lung disease likely related to the underlying connective tissue disease. Recently he was admitted to the hospital worsening shortness of breath. He was treated appropriately. He did have a CT scan of the chest that I personally reviewed. He does have moderate to severe emphysema and also bilateral interstitial lung disease. No significant change when compared to 2020 which is reassuring that is not significantly progressive. However, patient also had an echocardiogram demonstrating very severe elevations in his pulmonary pressures with a very dilated RV concerning for potentially even higher pulmonary arterial pressures. During the visit we did go for brief walking oximetry in the patient did desaturate in the pulse oxygen that he came in with and at rest he did need 4 L continuous oxygen. Explained to him that the pulse does not work for him. He needs to be on continues oxygen and he is agreeable to this and will make arrangements with his [employer] company. In addition that with walking on 6 L he barely was able to keep a 88%. Therefore, I will request an Oxymizer pendant from his [employer] company in order to provide him enough oxygen. I do believe that his pulmonary hypertension is out of proportion to those pulmonary disease that he has. In his EF and left ventricular anatomy appears to be normal. Therefore, I do believe that considering a basal dilator to treat severe pulmonary hypertension that is out of proportion to his underlying pulmonary disease would be reasonable. The patient does have connective tissue disease which can predispose to group 1 pulmonary hypertension. 02/17/2024 the patient is here for a pulmonary follow-up visit. He has doing a little better. His oxygen requirements have decreased a little bit. No longer requires an Oxymizer pendant. Although the conserving device is not sufficient. He did come in with a pulse ox in the low 80s on his 3-4 L pulse. Therefore the patient needs to be on continues oxygen. We did provide him an operative tank poor continues oxygen at this time. He needs to use 2 L at rest and 3 L with activity. His degree of respiratory failure is primarily due to his pulmonary hypertension. He is severe pulmonary hypertension based on his echo with a very dilated RV. The patient was approved to start sildenafil. But, then his insurance changed and the patient was not aware and therefore he was not able to start the medication. He had a very abnormal echocardiogram. Again consistent with WHO group 1. therefore, we will request the patient started on sildenafil again will hopes that we can control his pulmonary hypertension in therefore decrease his significant oxygen requirements. Once the patient is on the vasodilators therapy we can repeat his 6 minute walk test in hopes that he can tolerate a conserving device and have an easier time carrying the oxygen. Also to note, the patient does have significant daytime drowsiness. Will go a head and request an in-law his [place] score is elevated 10/21. Will request an in-lab sleep study at this time. 06/14/2024 the patient is here for pulmonary follow-up visit. Overall he was recently hospitalized with acute on chronic hypoxic respiratory failure. The patient did respond well to steroids. He currently is on 7.5 mg of prednisone. In addition to that he has been on the sildenafil for the pulmonary hypertension. While in the hospital he did have a CT scan of the chest that I did personally review with him in the family. 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 At this point will continue him on the sildenafil 20 mg. Will request an echocardiogram prior to his next visit however. He does want have a portable oxygen concentrator. Explained to him that his oxygen requirements are too high. We did try him on 5 L pulse while resting his oxygen was only about 86%. He understands that he will need a continuous flow portable oxygen concentrator and does her not covered by the [employer] would have to be an [id number] expense be very expensive. I will talk to the [employer] company in order for him to get oxygen tanks prefilled because he is having hard time with filling station and also with the [id number] to be able to carry the the cylinder oxygen tanks with more ease. The patient does require 4 L of oxygen at rest and also requires up to 6 L with activity. 09/21/2024 the patient is here for a pulmonary follow-up visit. Overall he is feeling well. He continues to use his oxygen with good effect. He is tolerating the sildenafil. The patient has been on 20 mg 3 times a day. He did have a repeat echocardiogram demonstrating the PA pressures decreasing from 75 mmHg down to 49 mmHg which is reassuring. He continues to have significant oxygen requirements however. This is likely multifactorial. Based on the fact that he still has moderate degree of pulmonary hypertension will try to increase the sildenafil slowly to make sure does not develop any adverse hypoxia flash edema. He will take it 1/2 tablets and then increase it to 2 tablets 3 times a day. We can also add a 2nd agent which would be reasonable if he continues to have elevated pressures and continues have significant hypoxia. We did try him on a portable oxygen concentrator but he did not qualify. He is still requiring 6 L with activity. We did check ear probe in addition to a finger probe and they both were given low numbers. Will go ahead heading request a arterial blood gas to better get a sense of oxygen partial pressure and see adequate oxygenation in that matter. He is going to do that once he is able to come into the hospital and have that done. In addition to that he did have a CT scan back in April demonstrating 1.1 cm pulmonary nodule among others. He also has interstitial lung disease and emphysema. Will go ahead and repeat a CT scan prior to the next visit to assess his nodular density. Based on his oxygen needs and is decompensated state will be difficult to perform any semi invasive interventions or diagnostic interventions. 11/15/2024 the patient is here for a pulmonary follow-up visit. The patient overall has been doing okay. He was recently hospitalized. While in hospital the patient was increased on the sildenafil to 40 mg t.i.d. which she seems to be tolerating. His oxygen needs are still high. Explained to him that the basal dilator may also increase his oxygen needs. But at least the pulmonary pressures have come down nicely. The patient also has underlying pulmonary fibrosis. He did have a recent CT scan of the chest which I personally reviewed with him and his son. Seems like the interstitial lung disease is a little bit worse. He has been on 10 mg of prednisone that has been helpful but at this time I do believe that will benefit from Ofev to try to minimize worsening interstitial lung disease and pulmonary fibrosis. Will go ahead and sign a consent and will 5 request the medication from the specialty pharmacy in once he gets the approval from the insurance. We did talk about the side effects of the medication including the diarrhea. For now he will continue with current respiratory regimen. Will wait to hear about the office. The patient will return in 3 months with PFTs. The patient has any issues prior to that he will call for an earlier assessment. 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) heart failure with preserved ejection fraction IPF (idiopathic pulmonary fibrosis) COPD (chronic obstructive pulmonary disease) Reactive airway disease Pulmonary hypertension Chronic respiratory failure CHF (congestive heart failure) ILD (interstitial lung disease) Acute exacerbation of CHF (congestive heart failure) SVT (supraventricular tachycardia) CHF exacerbation Chronic anticoagulation Atrial fibrillation Chronic hypoxemic respiratory failure Hypertension Rheumatoid arthritis Lymphadenopathy Surgical History Hx of colonoscopy Social History Household Members: Spouse and Children Housing: House Do you presently have visiting nurse or other home services: No Alcohol intake: former Comment: patient rings appropriately Patient Tobacco Use Status: Former Tobacco user Tobacco use type: Cigarette Years Smoked: 40 e-Cigarette/Vaping Use: Former Use Second Hand Smoke Exposure: No Advance Directives Date on File: 06/27/23 service: No Current occupational status: retired Review of Systems Const All systems reviewed & are unremarkable except as noted in HPI and below Denies weakness ENT Denies dizziness Card Denies chest pain, Denies chest pain with activity, Denies syncope, Denies rapid heart rate, Denies pedal edema, Denies edema, Denies leg edema, Denies lightheadedness, Denies palpitations, Reports dyspnea, Reports dyspnea on exertion and Denies orthopnea Resp Denies cough, Reports dyspnea and Reports dyspnea on exertion GI Denies hematochezia and Denies change in stool character Musc Denies abnormal gait, Denies muscle cramps, Denies muscle weakness, Denies numbness, Denies radiating pain into limb and Denies tingling Neuro Denies abnormal gait, Denies dizziness, Denies syncope, Denies numbness, Denies tingling and Denies weakness Endo Denies palpitations Physical Exam Vital Signs: Last Vital Signs Pulse 70 11/15/24 11:01 BP 118/60 11/15/24 11:01 Pulse Ox 91 L 11/15/24 11:01 Oxygen Delivery Method Nasal Cannula 11/15/24 11:01 Oxygen Flow Rate 4 11/15/24 11:01 BMI result Body Mass Index 26.9 Last Vital Signs Temp 96.8 F 05/23/24 07:05 Pulse 63 05/23/24 07:49 Resp 16 05/23/24 07:05 BP 138/63 05/23/24 07:49 Pulse Ox 93 05/23/24 07:05 O2 Del Method Oxymask 05/23/24 07:05 O2 Flow Rate 7 05/23/24 07:05 Oxygen Flow Rate 8 05/22/24 12:36 BMI result Body Mass Index 24.9 Const General: alert HEENT Head: Yes normocephalic Neck Neck: Yes normal visual inspection, Yes full ROM and Yes no lymphadenopathy Chest Chest palpation & inspection: normal inspection of the chest Resp Effort & Inspection: normal respiratory effort Auscultation: rales, no rhonchi and diminished lung sounds Cardio Rate: regular rate Rhythm: regular rhythm Heart sounds: S1 normal heart sound present and S2 normal heart sound present GI Palpation (GI): Soft to palpation and nontender Auscultation: normal bowel sounds Skin General skin exam: no rashes or lesions noted Extrem General: Yes clubbing and No cyanosis Assessment & Plan Assessment & Plan (1) COPD (chronic obstructive pulmonary disease): Code(s): J44.9 - Chronic obstructive pulmonary disease, unspecified Category: Medical Qualifiers: COPD type: COPD with acute exacerbation Qualified Code(s): J44.1 - Chronic obstructive pulmonary disease with (acute) exacerbation (2) Chronic respiratory failure: Code(s): J96.10 - Chronic respiratory failure, unspecified whether with hypoxia or hypercapnia Category: Medical Qualifiers: Respiratory failure complication: hypoxia Qualified Code(s): J96.11 - Chronic respiratory failure with hypoxia (3) Pulmonary hypertension: Comment: WHO group 1 Code(s): I27.20 - Pulmonary hypertension, unspecified Category: Medical (4) ILD (interstitial lung disease): Code(s): J84.9 - Interstitial pulmonary disease, unspecified Category: Medical (5) Combined pulmonary fibrosis and emphysema (CPFE): Code(s): J43.9 - Emphysema, unspecified; J84.10 - Pulmonary fibrosis, unspecified Category: Medical (6) Pulmonary nodule 1 cm or greater in diameter: Code(s): R91.1 - Solitary pulmonary nodule Category: Medical Plan continue PD5 inhibitor, sildenafil 40mg PO TID for Pulmonary HTN start OFEV for interval worsening of pulmonary fibrosis Continue Breo JORGITO as needed Oxygen revision: 4L/min at rest, 6L/min with activity diuresis as tolerated prednisone 10mg ECHO was better PAP 79->49 mmHg PFTs F/U in 2-3 months Orders: Orders PFT pulmonary function test Today J43.9 - Emphysema, unspecified, J84.10 - Pulmonary fibrosis, unspecified Coding Level of Care Code Est Pt Level 5 (47603) Complex EM visit Add On G2211 Diagnoses Centrilobular emphysema J44.1 COPD type: COPD with acute exacerbation Chronic respiratory failure with hypoxia J96.11 Respiratory failure complication: hypoxia Pulmonary hypertension I27.20 ILD (interstitial lung disease) J84.9 Combined pulmonary fibrosis and emphysema (CPFE) J43.9; J84.10 Pulmonary nodule 1 cm or greater in diameter R91.1 Time Spent (min) 40
== END 2024-11-15 11:35 | disposition home or self-care (01) ==
PROVIDERS: PCP Internal Medicine; Visit Provider Hospitalist
DX: J44.1 Chronic obstructive pulmonary disease with (acute) exacerbation (principal); J96.11 Chronic respiratory failure with hypoxia; I27.20 Pulmonary hypertension, unspecified; J84.9 Interstitial pulmonary disease, unspecified; J43.9 Emphysema, unspecified; J84.10 Pulmonary fibrosis, unspecified; R91.1 Solitary pulmonary nodule
CPT/HCPCS: 99215; G2211

== ENCOUNTER → 2024-11-15 10:56 | Outpatient (BNVA) | payer OTHER, SELFPAY | PROVIDERS: PCP Internal Medicine; Visit Provider Hospitalist | DX: J44.1 Chronic obstructive pulmonary disease with (acute) exacerbation (principal); J43.9 Emphysema, unspecified; J96.11 Chronic respiratory failure with hypoxia; J84.9 Interstitial pulmonary disease, unspecified; J84.10 Pulmonary fibrosis, unspecified; I27.20 Pulmonary hypertension, unspecified; R91.1 Solitary pulmonary nodule; Z99.81 Dependence on supplemental oxygen; Z87.891 Personal history of nicotine dependence | CPT/HCPCS: 99212 ==

== ENCOUNTER → 2024-12-06 23:59 | Outpatient (BNV) | payer OTHER, SELFPAY ==
--- NOTE | 2024-12-11 16:37 | MHC.OFFVIS ---
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) heart failure with preserved ejection fraction IPF (idiopathic pulmonary fibrosis) COPD (chronic obstructive pulmonary disease) Reactive airway disease Pulmonary hypertension Chronic respiratory failure CHF (congestive heart failure) ILD (interstitial lung disease) Acute exacerbation of CHF (congestive heart failure) SVT (supraventricular tachycardia) CHF exacerbation Chronic anticoagulation Atrial fibrillation Chronic hypoxemic respiratory failure Hypertension Rheumatoid arthritis Lymphadenopathy Surgical History Hx of colonoscopy Social History Household Members: Spouse and Children Housing: House Do you presently have visiting nurse or other home services: No Alcohol intake: former Comment: patient rings appropriately Patient Tobacco Use Status: Former Tobacco user Tobacco use type: Cigarette Years Smoked: 40 e-Cigarette/Vaping Use: Former Use Second Hand Smoke Exposure: No Advance Directives Date on File: 06/27/23 service: No Current occupational status: retired Office Procedures Cardiac Device Check Cardiac Device Check Details: Monitoring period dates: 10/31/24 - 12/06/24 Optimal PA pressure range: ADDY goal 45mmhg Procedure code: 19459 BACKGROUND: Tommy is implanted with the CardioMEMS PA Sensor.? I use this technology to monitor PA pressures on a weekly basis to ensure patients are within their optimal range to prevent decompensation.? SUMMARY:? I utilized the remote monitoring platform ([employer]) to set optimal targets for pulmonary artery pressure thresholds as part of acute and chronic management of patient?s heart failure. During the period indicated above, I monitored the patient?s pulmonary artery pressures weekly via trend analysis and notification reports which provide alerts when patient?s PA pressures were outside of range to prompt immediate action in medication changes and communications.? The weekly reports are archived in the [employer] system which serve as a parallel record to document weekly PA pressures, medication changes, and clinical notes. I have reviewed readings on 11/01, 11/05, 11/12, 11/19. He has not sent readings since that day. We have reached out to him. His ADDY readings have ranged 43- 52mmhg. No diuretic changes were made 90137 - Remote monitoring of wireless pulmonary artery pressure sensor Procedure code (CPT) selection complete Assessment & Plan Assessment & Plan (1) Presence of CardioMEMS HF system: Code(s): Z95.818 - Presence of other cardiac implants and grafts Category: Medical Plan: monthly report Coding Level of Care Code Procedure Only Diagnoses Presence of CardioMEMS HF system Z95.818 CPT Codes Cardiac Device Check - Cardiac Device 17: 76096 - Remote monitoring of wireless pulmonary artery pressure sensor ([id number])
== END ==
PROVIDERS: PCP Internal Medicine; Visit Provider Nurse Practitioner Family
DX: Z45.09 Encounter for adjustment and management of other cardiac device (principal)
CPT/HCPCS: 93264

== ENCOUNTER 2024-12-27 08:46 | Outpatient (AMB) | payer OTHER, SELFPAY ==
[2024-12-27 08:48] VITALS: BP 100/60; PULSE 72; O2SAT 89; BMI 25.8
--- NOTE | 2024-12-27 08:48 | MHC.OFFVIS ---
Vital Signs 12/27/24 08:48 Height 5 ft 10 in Weight 179 lb 10.828 oz BMI 25.8 BP 100/60 Blood Pressure Location Rt brachial Position Sitting Pulse 72 Pulse Source Pulse Oximeter Pulse Oximetry (%) 89 L Oxygen Delivery Method Nasal Cannula Oxygen Flow Rate 4 Intake Visit Reasons: Pulmonary HTN Allergies No Known Allergies Allergy (Unknown, Verified 12/27/24 08:51) NOT APPLICABLE HPI Comments Details: The patient is 79-year-old gentleman with a known history of emphysema, interstitial lung disease along with severe pulmonary hypertension on hot oxygen requirements. He has been followed closely at [place]. The patient was evaluated and placed on prednisone, initially starting at 10 mg and now 7.5 mg in part to treat the interstitial lung disease likely related to the underlying connective tissue disease. Recently he was admitted to the hospital worsening shortness of breath. He was treated appropriately. He did have a CT scan of the chest that I personally reviewed. He does have moderate to severe emphysema and also bilateral interstitial lung disease. No significant change when compared to 2020 which is reassuring that is not significantly progressive. However, patient also had an echocardiogram demonstrating very severe elevations in his pulmonary pressures with a very dilated RV concerning for potentially even higher pulmonary arterial pressures. During the visit we did go for brief walking oximetry in the patient did desaturate in the pulse oxygen that he came in with and at rest he did need 4 L continuous oxygen. Explained to him that the pulse does not work for him. He needs to be on continues oxygen and he is agreeable to this and will make arrangements with his [employer]. In addition that with walking on 6 L he barely was able to keep a 88%. Therefore, I will request an Oxymizer pendant from his [employer] company in order to provide him enough oxygen. I do believe that his pulmonary hypertension is out of proportion to those pulmonary disease that he has. In his EF and left ventricular anatomy appears to be normal. Therefore, I do believe that considering a basal dilator to treat severe pulmonary hypertension that is out of proportion to his underlying pulmonary disease would be reasonable. The patient does have connective tissue disease which can predispose to group 1 pulmonary hypertension. 02/17/2024 the patient is here for a pulmonary follow-up visit. He has doing a little better. His oxygen requirements have decreased a little bit. No longer requires an Oxymizer pendant. Although the conserving device is not sufficient. He did come in with a pulse ox in the low 80s on his 3-4 L pulse. Therefore the patient needs to be on continues oxygen. We did provide him an operative tank poor continues oxygen at this time. He needs to use 2 L at rest and 3 L with activity. His degree of respiratory failure is primarily due to his pulmonary hypertension. He is severe pulmonary hypertension based on his echo with a very dilated RV. The patient was approved to start sildenafil. But, then his insurance changed and the patient was not aware and therefore he was not able to start the medication. He had a very abnormal echocardiogram. Again consistent with WHO group 1. therefore, we will request the patient started on sildenafil again will hopes that we can control his pulmonary hypertension in therefore decrease his significant oxygen requirements. Once the patient is on the vasodilators therapy we can repeat his 6 minute walk test in hopes that he can tolerate a conserving device and have an easier time carrying the oxygen. Also to note, the patient does have significant daytime drowsiness. Will go ahead and request an in-law his [place] score is elevated 10/21. Will request an in-lab sleep study at this time. 06/14/2024 the patient is here for pulmonary follow-up visit. Overall he was recently hospitalized with acute on chronic hypoxic respiratory failure. The patient did respond well to steroids. He currently is on 7.5 mg of prednisone. In addition to that he has been on the sildenafil for the pulmonary hypertension. While in the hospital he did have a CT scan of the chest that I did personally review with him in the family. 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 At this point will continue him on the sildenafil 20 mg. Will request an echocardiogram prior to his next visit however. He does want have a portable oxygen concentrator. Explained to him that his oxygen requirements are too high. We did try him on 5 L pulse while resting his oxygen was only about 86%. He understands that he will need a continuous flow portable oxygen concentrator and does her not covered by the [employer] would have to be an [id number] expense be very expensive. I will talk to the [employer] company in order for him to get oxygen tanks prefilled because he is having hard time with filling station and also with the [employer] to be able to carry the the cylinder oxygen tanks with more ease. The patient does require 4 L of oxygen at rest and also requires up to 6 L with activity. 09/21/2024 the patient is here for a pulmonary follow-up visit. Overall he is feeling well. He continues to use his oxygen with good effect. He is tolerating the sildenafil. The patient has been on 20 mg 3 times a day. He did have a repeat echocardiogram demonstrating the PA pressures decreasing from 75 mmHg down to 49 mmHg which is reassuring. He continues to have significant oxygen requirements however. This is likely multifactorial. Based on the fact that he still has moderate degree of pulmonary hypertension will try to increase the sildenafil slowly to make sure does not develop any adverse hypoxia flash edema. He will take it 1/2 tablets and then increase it to 2 tablets 3 times a day. We can also add a 2nd agent which would be reasonable if he continues to have elevated pressures and continues have significant hypoxia. We did try him on a portable oxygen concentrator but he did not qualify. He is still requiring 6 L with activity. We did check ear probe in addition to a finger probe and they both were given low numbers. Will go ahead heading request a arterial blood gas to better get a sense of oxygen partial pressure and see adequate oxygenation in that matter. He is going to do that once he is able to come into the hospital and have that done. In addition to that he did have a CT scan back in April demonstrating 1.1 cm pulmonary nodule among others. He also has interstitial lung disease and emphysema. Will go ahead and repeat a CT scan prior to the next visit to assess his nodular density. Based on his oxygen needs and is decompensated state will be difficult to perform any semi invasive interventions or diagnostic interventions. 11/15/2024 the patient is here for a pulmonary follow-up visit. The patient overall has been doing okay. He was recently hospitalized. While in hospital the patient was increased on the sildenafil to 40 mg t.i.d. which she seems to be tolerating. His oxygen needs are still high. Explained to him that the basal dilator may also increase his oxygen needs. But at least the pulmonary pressures have come down nicely. The patient also has underlying pulmonary fibrosis. He did have a recent CT scan of the chest which I personally reviewed with him and his son. Seems like the interstitial lung disease is a little bit worse. He has been on 10 mg of prednisone that has been helpful but at this time I do believe that will benefit from Ofev to try to minimize worsening interstitial lung disease and pulmonary fibrosis. Will go ahead and sign a consent and will 5 request the medication from the specialty pharmacy in once he gets the approval from the insurance. We did talk about the side effects of the medication including the diarrhea. For now he will continue with current respiratory regimen. Will wait to hear about the office. The patient will return in 3 months with PFTs. The patient has any issues prior to that he will call for an earlier assessment. 12/27/2024 patient is here for a pulmonary hospital follow-up visit. Patient was briefly admitted to [facility] with worsening respiratory symptoms. He did have a chest x-ray which I personally reviewed demonstrating some increased haziness over the right hilar basilar area. He was treated for COPD exacerbation. Subsequently discharged. He is feeling better he still on 40 mg of prednisone. He is based on prednisone 10 mg. He also started the Ofev which she seems to be tolerating well. Initially he had significant diarrhea and vomiting but not subsided. He is happy with the feels like it is working. He is also continues on the 40 mg of Revatio that he takes 3 times a day for his pulmonary hypertension. Will go ahead and wean down the prednisone hopefully down to 10 mg. But if he has any difficulties doing so he will call me. I did send additional prednisone to the pharmacy. He did have PFTs scheduled for tomorrow hold off on those right now and postpone them to sometime in 6-8 weeks when he comes back. We did talk about pulmonary rehabilitation. The patient is resistant right now because of the cold weather. Will reassess after his PFTs we can consider [facility] since he lives in [place]. [facility] Medical History (Updated 10/25/24 @ 00:02 by Background Pierce) COPD exacerbation Pulmonary nodule 1 cm or greater in diameter Combined pulmonary fibrosis and emphysema (CPFE) (HFpEF) heart failure with preserved ejection fraction IPF (idiopathic pulmonary fibrosis) COPD (chronic obstructive pulmonary disease) Reactive airway disease Pulmonary hypertension Chronic respiratory failure CHF (congestive heart failure) ILD (interstitial lung disease) Acute exacerbation of CHF (congestive heart failure) SVT (supraventricular tachycardia) CHF exacerbation Chronic anticoagulation Atrial fibrillation Chronic hypoxemic respiratory failure Hypertension Rheumatoid arthritis Lymphadenopathy Surgical History Hx of colonoscopy Social History Household Members: Spouse and Children Housing: House Do you presently have visiting nurse or other home services: No Alcohol intake: former Comment: patient rings appropriately Patient Tobacco Use Status: Former Tobacco user Tobacco use type: Cigarette Years Smoked: 40 e-Cigarette/Vaping Use: Former Use Second Hand Smoke Exposure: No Advance Directives Date on File: 06/27/23 service: No Current occupational status: retired Review of Systems Const All systems reviewed & are unremarkable except as noted in HPI and below Denies weakness ENT Denies dizziness Card Denies chest pain, Denies chest pain with activity, Denies syncope, Denies rapid heart rate, Denies pedal edema, Denies edema, Denies leg edema, Denies lightheadedness, Denies palpitations, Reports dyspnea, Reports dyspnea on exertion and Denies orthopnea Resp Denies cough, Reports dyspnea and Reports dyspnea on exertion GI Denies hematochezia and Denies change in stool character Musc Denies abnormal gait, Denies muscle cramps, Denies muscle weakness, Denies numbness, Denies radiating pain into limb and Denies tingling Neuro Denies abnormal gait, Denies dizziness, Denies syncope, Denies numbness, Denies tingling and Denies weakness Endo Denies palpitations Physical Exam Vital Signs: Last Vital Signs Pulse 72 12/27/24 08:48 BP 100/60 12/27/24 08:48 Pulse Ox 89 L 12/27/24 08:48 Oxygen Delivery Method Nasal Cannula 12/27/24 08:48 Oxygen Flow Rate 4 12/27/24 08:48 BMI result Body Mass Index 25.8 Last Vital Signs Temp 96.8 F 05/23/24 07:05 Pulse 63 05/23/24 07:49 Resp 16 05/23/24 07:05 BP 138/63 05/23/24 07:49 Pulse Ox 93 05/23/24 07:05 O2 Del Method Oxymask 05/23/24 07:05 O2 Flow Rate 7 05/23/24 07:05 Oxygen Flow Rate 8 06/25/24 12:36 BMI result Body Mass Index 24.9 Const General: alert HEENT Head: Yes normocephalic Neck Neck: Yes normal visual inspection, Yes full ROM and Yes no lymphadenopathy Chest Chest palpation & inspection: normal inspection of the chest Resp Effort & Inspection: normal respiratory effort Auscultation: rales, no rhonchi and diminished lung sounds Cardio Rate: regular rate Rhythm: regular rhythm Heart sounds: S1 normal heart sound present and S2 normal heart sound present GI Palpation (GI): Soft to palpation and nontender Auscultation: normal bowel sounds Skin General skin exam: no rashes or lesions noted Extrem General: Yes clubbing and No cyanosis Assessment & Plan Assessment & Plan (1) COPD (chronic obstructive pulmonary disease): Code(s): J44.9 - Chronic obstructive pulmonary disease, unspecified Category: Medical Qualifiers: COPD type: COPD with acute exacerbation Qualified Code(s): J44.1 - Chronic obstructive pulmonary disease with (acute) exacerbation (2) Chronic respiratory failure: Code(s): J96.10 - Chronic respiratory failure, unspecified whether with hypoxia or hypercapnia Category: Medical Qualifiers: Respiratory failure complication: hypoxia Qualified Code(s): J96.11 - Chronic respiratory failure with hypoxia (3) Pulmonary hypertension: Comment: WHO group 1 Code(s): I27.20 - Pulmonary hypertension, unspecified Category: Medical (4) ILD (interstitial lung disease): Code(s): J84.9 - Interstitial pulmonary disease, unspecified Category: Medical (5) Combined pulmonary fibrosis and emphysema (CPFE): Code(s): J43.9 - Emphysema, unspecified; J84.10 - Pulmonary fibrosis, unspecified Category: Medical (6) Pulmonary nodule 1 cm or greater in diameter: Code(s): R91.1 - Solitary pulmonary nodule Category: Medical Plan continue PD5 inhibitor, sildenafil 40mg PO TID for Pulmonary HTN continue OFEV for interval worsening of pulmonary fibrosis Continue Breo JORGITO as needed Oxygen revision: 4L/min at rest, 6L/min with activity diuresis as tolerated prednisone taper 40mg -->10mg ECHO was better PAP 79->49 mmHg PFTs in 2 months F/U in 2-3 months Medications: Changed From prednisone Take prednisone 40 mg daily for 5 days Then 30 mg daily for 5 days Then 20 mg daily for 5 days Then 10 mg daily for 5 days Then resume 7.5 mg daily as before 10 mg PO DAILY To prednisone 20 mg (2 x 10 mg) PO DAILY 60 tabs 7RF 30 days Coding Level of Care Code Est Pt Level 4 (58284) Complex EM visit Add On G2211 Diagnoses Centrilobular emphysema J44.1 COPD type: COPD with acute exacerbation Chronic respiratory failure with hypoxia J96.11 Respiratory failure complication: hypoxia Pulmonary hypertension I27.20 ILD (interstitial lung disease) J84.9 Combined pulmonary fibrosis and emphysema (CPFE) J43.9; J84.10 Pulmonary nodule 1 cm or greater in diameter R91.1 Time Spent (min) 18
--- OUTSIDE RECORDS SUMMARY | 2024-12-27 11:33 | XMS_ITS | Encounter Summary ---
Author Organization [facility] Address [address] [place] [address] Care Team Providers Care [employer] Supervisor Name Role Phone Moris Machado MD Primary Care Provider [phone] Reason for Visit * Reason Onset Date Comments faxed order 10/31/2024 [facility] order# [id number] Encounter Details Date Type Department Care Team ([facility] st Contact Info) Description 10/31/2024 Telephone Adult Medicine [address] [phone] Silvana Torres MA faxed order ([facility] order# [id number]) Social History Tobacco Use Types Packs/Day Years Used Date Smoking Tobacco: Former Cigarettes 1 11 0 11/28/1991 - 11/28/2002 Smokeless Tobacco: Never Alcohol Use Standard Drinks/Week Comments No 0 (1 standard drink = 0.6 oz pur e alcohol) Interpersonal Safety Answer Date Record ed Physical Abuse 11/20/2024 Verbal Abuse 11/20/2024 Sex and Gender Information Value Date Recorded Sex Assigned at Male 12/11/2024 3:28 PM EST Gender Identity Male 12/11/2024 3:28 PM EST Sexual Orientation Straight 12/11/2024 3: 28 PM EST Job Start Date Occupation Industry Not on file Not on file Not on file documented as of this encounter Progress Notes * Silvana Torres MA - 10/31/2024 10:19 AM EST Received orders from [facility] order# [id number]. Please sign and fax to [phone] documented in this encounter Plan of Treatment Upcoming Encounters Date Type Department Care Team (Late st Contact Info) Description 12/28/2024 11:20 AM EST Anticoagulation - Warfarin Visit [facility] [address] [phone] 01/31/2025 9:45 AM EST Office Visit Adult Medicine [address] [phone] Juan Velasquez PA [address] [place] [address] 03/21/2025 10:00 AM EDT Office Visit Endocrinology [address] [phone] Nicole Samson PA [address] [place] [phone] 06/18/2025 9:45 AM EDT Office Visit [address] [phone] Moris Machado MD [address] [place] [address] documented as of this encounter Visit Diagnoses Not on filedocumented in this encounter Additional Health Concerns Infection Onset Date Last Indicated Resolved Time Respiratory Rule-Out 11/20/2024 11/20/2024 024 12:17 PM EST COVID-19 Rule-Out 11/20/2024 11/20/2024 11/20/2024 12:17 PM EST documented as of this encounter Care Teams [employer] Supervisor Relationship Specialty Start Date End Date Moris Machado MD [address] [place] [address] PCP - General Internal Medicine 10/09/24 documented as of this encounter
--- OUTSIDE RECORDS SUMMARY | 2024-12-27 11:33 | XMS_ITS | Encounter Summary ---
Author Organization [facility] Address [address] [place] [address] Care Team Providers Care Doctor Of Nurse Anesthesia Name Role Phone Moris Machado MD Primary Care Provider [phone] Reason for Visit * Reason Comments Medicare Annual Wellness Visit [facility] Follow-up Encounter Details Date Type Department Care Team (Late st Contact Info) Description 12/10/2024 11:00 AM EST Office Visit Adult Medicine [address] [phone] Moris Machado MD [address] [place] [phone] Encounter for subsequent annual wellness visit (AWV) in Medicare patient (Primary Dx); Acute on chronic heart failure with preserved ejection fraction (CMS/HCC); Chronic hypoxemic respiratory failure (CMS/HCC); Acute on chronic respiratory failure with hypoxia (CMS/HCC); ILD (interstitial lung disease) ([facility]) Social History Tobacco Use Types Packs/Day Years Used Date Smoking Tobacco: Former Cigarettes 1 11 0 11/28/1991 - 11/28/2002 Smokeless Tobacco: Never Tobacco Cessation:Counseling Given: Not Answered Alcohol Use Standard Drinks/Week Comments No 0 [...] on file documented as of this encounter Last Filed Vital Signs Vital Sign Reading Time Taken Comments Blood Pressure 138/86 12/10/2024 3:51 PM EST Pulse - - Temperature - - Respiratory Rate - - Oxygen Saturation 90% 12/10/2024 3:51 PM EST Inhaled Oxygen Concentration - - Weight 82.6 kg (182 lb) 12/10/2024 10:59 AM EST Height 180.3 cm (5' 11 ) 12/10/2024 10:59 AM EST Body Mass Index 25.38 12/10/2024 10:59 AM EST documented in this encounter Progress Notes * Moris Machado MD - 12/10/2024 11:00 AM ESTAssociated Problem(s): (HFpEF) heart failure with preserved ejection fraction (CMS/HCC) * Moris Machado MD - 12/10/2024 11:00 AM ESTAssociated Problem(s): Chronic hypoxemic respiratory failure (CMS/HCC) * Mrois Machado MD - 12/10/2024 11:00 AM ESTAssociated Problem(s): ILD (interstitial lung disease) (CMS/HCC) * Moris Machado MD - 12/10/2024 11:00 AM EST Images from the original note were not included. Medicare Annual Wellness Visit Note Patient Name: Tommy Love Date of : 1945 Race: Unknown Ethnicity: Not Hispan/Lat Date of Service: 12/10/2024 Tommy is a 79 y.o. male presenting for Medicare Annual Wellness Visit Subsequent and Hospital Follow-up History of Present Illness HPI Comprehensive Medical and Social History: Patient Active Problem List Diagnosis (HFpEF) heart failure with preserved ejection fraction (CMS/HCC) A-fib ([facility]) CAD (coronary artery disease) Chronic hypoxemic respiratory failure ([facility]) Diabetes mellitus due to underlying condition, uncontrolled, with hyperglycemia ([facility]) Glaucoma HLD (hyperlipidemia) HTN (hypertension) ILD (interstitial lung disease) ([facility]) Influenza Lymphadenopathy [place] (myocardial infarction) Pulmonary HTN ([facility]) Schamberg's disease Seropositive rheumatoid arthritis ([facility]) SOB (shortness of breath) SVT (supraventricular tachycardia) ([facility]) Atrial fibrillation ([facility]) [facility] (current) use of anticoagulants Renal osteodystrophy Secondary diabetes mellitus ([facility]) Stage 3b chronic kidney disease ([facility]) 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[facility]) Heart failure ([facility]) No Known Allergies Current Outpatient Medications Medication Sig Dispense Refill adalimumab (Humira,CF, Pen) 40 mg/0.4 mL pen Inject 0.4 mL (40 mg total) under the skin every 14 (fourteen) days. albuterol 2.5 mg /3 mL (0.083 %) nebulizer solution USE 1 VIAL VIA NEBULIZER EVERY 4 HOURS NEEDED FOR WHEEZING (Patient taking differently: Take 3 mL (2.5 mg total) by nebulization every 4 (four) hours if needed for wheezing.) 360 mL 2 albuterol HFA (Ventolin HFA) 90 mcg/actuation inhaler Inhale 2 puffs by mouth every 4 (four) hours if needed for wheezing or shortness of breath. Breo Ellipta 200-25 mcg/dose inhaler Inhale 1 puff by mouth 1 (one) time each day. bumetanide (BUMEX) 1 mg tablet Take 1 tablet (1 mg total) by mouth 2 (two) times a day. calcitrioL (ROCALTROL) 0.25 mcg capsule Take 1 capsule (0.25 mcg total) by mouth every other day. cholecalciferol (VITAMIN D-3) 50 mcg (2,000 unit) tablet Take 1 tablet (2,000 Units total) by mouth1 (one) time each day. dilTIAZem CD (CARDIZEM CD) 240 mg 24 hr capsule Take 1 capsule (240 mg total) by mouth 1 (one) timeeach day. empagliflozin (Jardiance) 25 mg tablet Take 25 mg by mouth daily. Entresto 49-51 mg per tablet TAKE 1 TABLET BY MOUTH TWICE DAILY 180 tablet 1 folic acid (FOLVITE) 400 mcg tablet Take 1 tablet (0.4 mg total) by mouth 1 (one) time each day. ipratropium-albuteroL (Combivent Respimat) 20-100 mcg/actuation inhaler Inhale 1 Puff into the lungs every 6 hours as needed (wheezing) for up to 30 days. Lantus Solostar U-100 Insulin 100 unit/mL (3 mL) injection pen INJECT 20 UNITS SUBCUTANEOUS EVERY EVENING 15 mL 0 metoprolol tartrate (LOPRESSOR) 50 mg tablet Take 1 tablet (50 mg total) by mouth 2 (two) times a day. nitroglycerin (NITROSTAT) 0.[address] 1 tablet (0.4 mg total) under the tongue every 5 (five) minutes if needed for chest pain. Ofev 150 mg capsule Take 1 capsule (150 mg total) by mouth 2 (two) times a day. omeprazole (PriLOSEC) [address] capsule TAKE 1 CAPSULE BY MOUTH DAILY 90 capsule 1 predniSONE (DELTASONE) 10 mg tablet Take 7.5 mg by mouth 1 (one) time each day. rosuvastatin (CRESTOR) 10 mg tablet TAKE 1 TABLET BY MOUTH AT BEDTIME 90 tablet 1 sildenafil (REVATIO) 20 mg tablet Take 1 tablet (20 mg total) by mouth 3 (three) times a day. timolol (TIMOPTIC) 0.5 % ophthalmic solution INSTILL 1 DROP IN BOTH EYES IN THE MORNING traMADoL (ULTRAM) 50 mg tablet Take 1 tablet (50 mg total) by mouth 2 (two) times a day if needed for severe pain. for pain Max Daily Amount: 100 mg 56 tablet 0 warfarin (COUMADIN) 2.5 mg tablet Take 1 tablet (2.5 mg total) by mouth every other day. Evening dose warfarin (COUMADIN) 5 mg tablet TAKE 1 TABLET BY MOUTH DAILY. MAY CAUSE HEAVY BLEEDING. TAKE AT THESAME TIME EVERY_DAY. DO NOT CHANGE DIETARY HABITS 90 tablet 1 No current facility-administered medications for this visit. Past Medical History: Diagnosis Date A-fib ([facility]) 03/16/2012 DX:A-fib ([facility]) Asthma DX:Asthma CAD (coronary artery disease) 03/16/2012 DX:CAD (coronary artery disease) Glaucoma 06/05/2012 DX:Glaucoma High cholesterol 03/16/2012 DX:High cholesterol Historical Medical DX 04/20/2012 DX:PPD negative HTN (hypertension) 03/16/2012 DX:HTN (hypertension) ILD (interstitial lung disease) ([facility]) 11/30/2021 DX:ILD (interstitial lung disease) ([facility]) RA (rheumatoid arthritis) ([facility]) 03/16/2012 DX:RA (rheumatoid arthritis) ([facility]) 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 Past Surgical History: Procedure Laterality Date COLONOSCOPY 10/17/19 [facility] PROCEDURE: HISTORICAL COLONOSCOPY; COMMENT: sigmoid adenoma and tics COLONOSCOPY 05/02/14 PROCEDURE: NE COLONOSCOPY STOMA W/RMVL BART POLYP/OTH LES SNARE; COMMENT: adenoma and tics; repeat in 5 yrs Social History Socioeconomic History Marital status: Spouse name: None Number of children: None Years of education: None Highest education level: None Occupational History None Tobacco Use Smoking status: Former Current packs/day: 0.00 Average packs/day: 1 pack/day for 11.0 years (11.0 ttl pk-yrs) Types: Cigarettes Start date: 11/28/1991 Quit date: 11/28/2002 Years since quittin.0 Smokeless tobacco: Never Substance and Sexual Activity Alcohol use: No Drug use: No Sexual activity: None Other Topics Concern None Social History Narrative Family History Problem Relation Name Age of Onset Coronary artery disease Neg Hx Immunizations: Immunization History Administered Date(s) Administered Influenza Quadravalent, 0.5ml (Fluzone High-dose) 65yo and older 08/09/2022 Influenza trivalent, 0.5mL (Fluzone High-dose) 65yo and older 07/27/2016, 08/22/2017, 09/21/2017, 07/28/2018, 08/20/2019, 10/10/2019, 08/05/2020 Influenza trivalent, with preservative (Fluzone; Afluria) 6mo and older 08/10/2013, 08/07/2015 Influenza, Unspecified 08/28/2012, 08/23/2014, 07/29/2016, 09/28/2021 Moderna SARS-CoV-2 COVID-19, mRNA, LNP-S, preservative free 01/10/2021, 02/07/2021, 07/30/2021 Pfizer (ages 12 & older) SARS-CoV-2 COVID-19, mRNA, LNP-S, zaire-sucrose, preservative free 05/12/2022 Pneumococcal conjugate 13 valent (Prevnar 13, PCV13) 2mo and older 04/08/2015 Pneumococcal polysaccharide 23 valent (Pneumovax 23) 2yo and older 11/16/2007, 10/06/2021 Tetanus Toxoid, Unspecified 11/16/2007 Zoster recombinant (Shingrix) 19yo and older 07/28/2018, 05/12/2019 Hospitalization in the last year: Has been hospitalized once in the past 12 months. Current Providers and Suppliers: Patient Care Team: Moris Machado MD as PCP - General (Internal Medicine) Patient utilizes medical supplies frompt has home 02 Risk Assessments: Cognitive Function Assessment Cognitive screening performed. Depression Screening (PHQ2/9): Depression Screening Over the last 2 weeks, how often have you been bothered by little interest or pleasure in doing things?: More than half the days Over the last 2 weeks, how often have you been bothered by feeling down, depressed, or hopeless?: More than half the days Depression Risk: 4 PHQ9 Full Set of Questions Over the last 2 weeks, how often have you been bothered by little interest or pleasure in doing things?: More than half the days Over the last 2 weeks, how often have you been bothered by feeling down, depressed, or hopeless?: More than half the days Over the last 2 weeks, how often have you been bothered by trouble falling or staying asleep, or sleeping too much?: Nearly every day Over the last 2 weeks, how often have you been bothered by feeling tired or having little energy?: Not at all Over the last 2 weeks, how often have you been bothered by poor appetite or overeating? : Not at all Over the last 2 weeks, how often have you been bothered by feeling bad about yourself -- or that you are a failure or have let yourself or your family down?: Not at all Over the last 2 weeks, how often have you been bothered by trouble concentrating on things, such asreading the newspaper or watching television?: Not at all Over the last 2 weeks, how often have you been bothered by moving or speaking so slowly that other people could have noticed? Or the opposite -- being so fidgety or restless that you have been movingaround a lot more than usual?: Not at all Over the last 2 weeks, how often have you been bothered by thoughts that you would be better off or of hurting yourself in some way?: Not at all Depression Risk Score NEW: 7 Depression Plan : Known depression. Condition stable. Anxiety Screening: Alcohol Screening: Substance Abuse Screening: Pain: Pain Medications: Patient does not take any opioid medications BMI: Body mass index is 25.38 kg/m??. The BMI is in the acceptable range. Functional Ability and Level of Safety Review Health Status: In general, the patient reports health as: poor In general, patient reports life as: fair Patient reports sleep pattern as: up all night Have you seen a dentist in the last year?: No Activity of Daily Living (ADLs): Do you need help from others for your personal care such as eating, dressing, toileting, or gettingaround the house?: Yes Do you experience incontinence?: Yes Instrumental Activities of Daily Living (IADLs): Do you need help with using the telephone?: Yes Do you need help with shopping?: Yes Do you need help with food preparation?: Yes Do you need help with housekeeping?: Yes Do you need help with laundry?: Yes Do you need help handling finances?: Yes Do you drive?: No Do you manage your own medication?: Yes, independent with pre pour Physical Activity: Do you exercise for about 20 minutes or more three days a week?: Yes, always Nutritional Assessment: Do you eat a balanced diet including daily serving of fruits, vegetables, and whole grains?: Yes, always Social Influencer of Health (SIOH): Sexual Health: Have you been bothered by sexual problems: No Fall Risk: Have you fallen in the past year? no. Are you worried about falling? no. . Hearing: No data recorded Vision Screening: Required for Medicare Initial Preventative Physical Exam (IPPE) No data recorded Review of Systems Review of Systems Objective BP 138/86 Ht 1.803 m (71 ) Wt 82.6 kg (182 lb) BMI 25.38 kg/m?? SpO2: 90 % Physical Exam Assessment/Plan Patient presented today for an Subsequent Medicare Wellness Visit with an acute problem addressed. Assessment & Plan Encounter for subsequent annual wellness visit (AWV) in Medicare patient Acute on chronic heart failure with preserved ejection fraction (CMS/HCC) Chronic hypoxemic respiratory failure ([facility]) Acute on chronic respiratory failure with hypoxia ([facility]CC) ILD (interstitial lung disease) ([facility]) Advance Care Planning Discussion: Advance Care Planning was discussed. Tommy reports that he does not have advance directives or surrogate decision maker. Patient has not identified their surrogate decision maker. Pt was given health care proxyform During the visit we discussed: Code Status was discussed Prior pt is a full code A total time of 16 minutes or greater was spent on Advance Care Planning today :No Fall Prevention Education Discussed: no intervention is indicated at this time Health Maintenance Topic Date Due Diabetes: Annual Foot Exam Never done RSV Immunization Patients 60+ Years Old (1 - 1-dose 75+ series) Never done Colorectal Cancer Screening: Colonoscopy Never done Social Influencers of Health Screening Never done COVID-19 Vaccine ( season) 2024 Medicare Annual Wellness Visit 12/08/2024 Diabetes: Annual Retina Eye Exam 02/16/2025 Diabetes: Blood Sugar Control Test (HGBA1C) 04/08/2025 Diabetes: Annual Urine Albumin-Creatinine Ratio (uACR) 10/09/2025 Diabetes: Annual GFR (Glomerular Filtration Rate) 11/23/2025 Hypertension/CHF/CAD Annual BMP Blood Test 11/23/2025 Falls Risk Assessment 12/10/2025 Depression Screening 12/10/2025 Cholesterol Screening (Lipid Panel) 10/09/2029 DTaP,Tdap,and Td Vaccines (2 - Td or Tdap) 01/01/2030 Influenza Vaccine Completed Pneumococcal Vaccine: 65+ Years Completed Zoster Vaccines Completed HIB Vaccines Aged Out Hepatitis B Vaccines Aged Out IPV Vaccines Aged Out Hepatitis A Vaccines Aged Out MMR Vaccines Aged Out Varicella Vaccines Aged Out Meningococcal ACWY Vaccine Aged Out HPV Vaccines Aged Out RSV Immunization Patients Under 20 months Aged Out Moris Machado MD ADULT MEDICINE [address] [address] Dept: [phone] Dept * Moris Machado MD - 12/10/2024 11:00 AM EST CHIEF COMPLAINT: Medicare Annual Wellness Visit Subsequent and Hospital Follow-up IDENTIFIER: Tommy Love is a 79 y.o. old male. HPI: Pt with hx of diabetes A1c 7.3 04/2024,AFIB,HFpEF ef 60-65%,chronic hypoxemic resp failure, on 4 lnc,ILD,CAD Pt was [facility] 11/20-11/23/2024 Pt was brought in as 02 was 70% on 5lnc ems was alerted CT chest showed distal tracheal debris, peripheral groundglass opacities questioning scarring versus interstitial infiltrates and moderate emphysema Pt treated with abx ,diuretic, IV and solumederol and high flow 02 Pt dx with Acute on chronic hypoxic respiratory failure Probably secondary to pneumonia. Differential also includes CHF, COPD exacerbation. Pt improved was transitioned back to nasal cannula pt was at baseline breathing and was d/cd to home Pt has since seen his worm raiser(sadi) and has been started on Ofev pt notes benefit and feels breathing has improved. Pt has f/u with pulm this month ROS: GENERAL: Negative for malaise, significant weight loss and fever RESPIRATORY: No cough, wheezing or shortness of breath CARDIOVASCULAR: Negative for chest pain, leg swelling and palpitations PAST MEDICAL HISTORY: Patient Active Problem List Diagnosis Date Noted Atrial fibrillation ([facility]) 10/26/2024 [facility] (current) use of anticoagulants 10/26/2024 Diabetes mellitus due to underlying condition, uncontrolled, with hyperglycemia ([facility]) 11/12/2023 Secondary diabetes mellitus ([facility]) 11/12/2023 (HFpEF) heart failure with preserved ejection fraction ([facility]) 08/11/2023 Chronic hypoxemic respiratory failure ([facility]) 08/11/2023 SOB (shortness of breath) 08/11/2023 SVT (supraventricular tachycardia) ([facility]) 08/11/2023 Renal osteodystrophy 08/04/2023 Stage 3b chronic kidney disease ([facility]) 08/04/2023 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[facility]) 08/04/2023 Heart failure ([facility]) 06/26/2023 Pulmonary HTN ([facility]) 05/19/2023 Influenza 03/05/2022 Lymphadenopathy 03/05/2022 ILD (interstitial lung disease) ([facility]) 11/30/2021 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 [place] (myocardial infarction) 06/12/2015 Glaucoma 06/05/2012 A-fib ([facility]) 03/16/2012 CAD (coronary artery disease) 03/16/2012 HLD (hyperlipidemia) 03/16/2012 HTN (hypertension) 03/16/2012 Seropositive rheumatoid arthritis ([facility]) 03/16/2012 SOCIAL HISTORY: Social History Tobacco Use Smoking status: Former Current packs/day: 0.00 Average packs/day: 1 pack/day for 11.0 years (11.0 ttl pk-yrs) Types: Cigarettes Start date: 11/28/1991 Quit date: 11/28/2002 Years since quittin.0 Smokeless tobacco: Never Substance Use Topics Alcohol use: No FAMILY HISTORY: Family Status Relation Name Status Neg Hx (Not Specified) No partnership data on file Family History Problem Relation Name Age of Onset Coronary artery disease Neg Hx ACTIVE MEDICATIONS: Outpatient Medications Marked as Taking for the 12/10/24 encounter (Office Visit) with Moris Machado MD Medication Sig Dispense Refill adalimumab (Humira,CF, Pen) 40 mg/0.4 mL pen Inject 0.4 mL (40 mg total) under the skin every 14 (fourteen) days. albuterol 2.5 mg /3 mL (0.083 %) nebulizer solution USE 1 VIAL VIA NEBULIZER EVERY 4 HOURS NEEDED FOR WHEEZING (Patient taking differently: Take 3 mL (2.5 mg total) by nebulization every 4 (four) hours if needed for wheezing.) 360 mL 2 albuterol HFA (Ventolin HFA) 90 mcg/actuation inhaler Inhale 2 puffs by mouth every 4 (four) hours if needed for wheezing or shortness of breath. Breo Ellipta 200-25 mcg/dose inhaler Inhale 1 puff by mouth 1 (one) time each day. bumetanide (BUMEX) 1 mg tablet Take 1 tablet (1 mg total) by mouth 2 (two) times a day. calcitrioL (ROCALTROL) 0.25 mcg capsule Take 1 capsule (0.25 mcg total) by mouth every other day. cholecalciferol (VITAMIN D-3) 50 mcg (2,000 unit) tablet Take 1 tablet (2,000 Units total) by mouth1 (one) time each day. dilTIAZem CD (CARDIZEM CD) 240 mg 24 hr capsule Take 1 capsule (240 mg total) by mouth 1 (one) timeeach day. empagliflozin (Jardiance) 25 mg tablet Take 25 mg by mouth daily. Entresto 49-51 mg per tablet TAKE 1 TABLET BY MOUTH TWICE DAILY 180 tablet 1 folic acid (FOLVITE) 400 mcg tablet Take 1 tablet (0.4 mg total) by mouth 1 (one) time each day. ipratropium-albuteroL (Combivent Respimat) 20-100 mcg/actuation inhaler Inhale 1 Puff into the lungs every 6 hours as needed (wheezing) for up to 30 days. Lantus Solostar U-100 Insulin 100 unit/mL (3 mL) injection pen INJECT 20 UNITS SUBCUTANEOUS EVERY EVENING 15 mL 0 metoprolol tartrate (LOPRESSOR) 50 mg tablet Take 1 tablet (50 mg total) by mouth 2 (two) times a day. nitroglycerin (NITROSTAT) 0.[address] 1 tablet (0.4 mg total) under the tongue every 5 (five) minutes if needed for chest pain. Ofev 150 mg capsule Take 1 capsule (150 mg total) by mouth 2 (two) times a day. omeprazole (PriLOSEC) [address] capsule TAKE 1 CAPSULE BY MOUTH DAILY 90 capsule 1 predniSONE (DELTASONE) 10 mg tablet Take 7.5 mg by mouth 1 (one) time each day. rosuvastatin (CRESTOR) 10 mg tablet TAKE 1 TABLET BY MOUTH AT BEDTIME 90 tablet 1 sildenafil (REVATIO) 20 mg tablet Take 1 tablet (20 mg total) by mouth 3 (three) times a day. timolol (TIMOPTIC) 0.5 % ophthalmic solution INSTILL 1 DROP IN BOTH EYES IN THE MORNING traMADoL (ULTRAM) 50 mg tablet Take 1 tablet (50 mg total) by mouth 2 (two) times a day if needed for severe pain. for pain Max Daily Amount: 100 mg 56 tablet 0 warfarin (COUMADIN) 2.5 mg tablet Take 1 tablet (2.5 mg total) by mouth every other day. Evening dose warfarin (COUMADIN) 5 mg tablet TAKE 1 TABLET BY MOUTH DAILY. MAY CAUSE HEAVY BLEEDING. TAKE AT THESAME TIME EVERY_DAY. DO NOT CHANGE DIETARY HABITS 90 tablet 1 ALLERGIES: Patient has no known allergies. PHYSICAL EXAM: Blood pressure 138/86, height 1.803 m (71 ), weight 82.6 kg (182 lb), SpO2 90%. Body mass index is 25.38 kg/m??. Plan is deferred until next visit APPEARANCE: Alert and in no acute distress EYES: PERRLA, conjunctiva and sclera normal HEART: RRR with normal S1 and S2, no murmurs, no gallops, no JVD appreciated LUNG: clear to auscultation bilaterally EXTREMITIES: Extremities warm and well perfused without clubbing, cyanosis, or edema LABS: none IMPRESSION: 1. Encounter for subsequent annual wellness visit (AWV) in Medicare patient 2. Acute on chronic heart failure with preserved ejection fraction (CMS/HCC) 3. Chronic hypoxemic respiratory failure (CMS/HCC) 4. Acute on chronic respiratory failure with hypoxia (CMS/HCC) 5. ILD (interstitial lung disease) (CMS/HCC) PLAN: Pt with ILD,chronic respiratory failure and HFpEF was seen in the hospital last month for and . Ct showing ground glass opacities and scarring vs infiltrates, pt was treated with diuretics andabx. Pt had acute on chronic respiratory failure and needed high flow o2. With treatment pt was able to wean back to his out patient regimen of 02. Pt today notes breathing at baseline if not improved now of the OFEV. O2 sat 90% pt will continue current regimen and will f/u with pulm as scheduled for this month Pt with diabetes pt has f/u scheduled with endo for this week Pt to f/u with me in 6months No orders of the defined types were placed in this encounter. ADDITIONAL ORDERS: None Moris Machado MD on 12/10/2024 at 10:54 AM EST documented in this encounter Plan of Treatment Upcoming Encounters Date Type Department Care Team (Late st Contact Info) Description 12/28/2024 11:20 AM EST Anticoagulation - Warfarin Visit Coumadin [address] [id number] 01/31/2025 9:45 AM EST Office Visit Adult [address] [phone] Juan Velasquez PA [address] [place] [address] 03/21/2025 10:00 AM EDT Office Visit Endocrinology [address] [phone] Nicole Samson PA [address] [place] [address] 06/18/2025 9:45 AM EDT Office Visit Adult [address] [phone] Moris Machado MD [address] [place] [address] documented as of this encounter Visit Diagnoses Diagnosis Encounter for subsequent annual wellness visit (AWV) in Medicare patient- Primary Acute on chronic heart failure with preserved ejection fraction (CMS/HCC) Chronic hypoxemic respiratory failure (CMS/HCC) Chronic respiratory failure Acute on chronic respiratory failure with hypoxia (CMS/HCC) ILD (interstitial lung disease) ([facility]) Postinflammatory pulmonary fibrosis documented in this encounter Historical Medications * This list may reflect changes made after this encounter. Medication Sig Dispensed Refills Start Date End Date Ofev 150 mg capsule Take 1 capsule (150 mg total) by mouth 2 (two) times a day. 11/29/2024 added in this encounter Additional Health Concerns Assessment Noted Time PHQ-9 Depression Total Score: 7 12/10/19 25 11:19 AM EST A fall risk assessment has been complete d for the patient 12/10/2024 11:17 AM EST documented as of this encounter Care Teams Doctor Of Nurse Anesthesia Relationship Specialty Start Date End Date Moris Machado MD [address] [place] [address] PCP - General Internal Medicine 10/09/24 documented as of this encounter
--- OUTSIDE RECORDS SUMMARY | 2024-12-27 11:33 | XMS_ITS | Encounter Summary ---
Author Organization [facility] Address [address] [place] [address] Care Team Providers Care Client Customer Manager Name Role Phone Moris Machado MD Primary Care Provider [phone] Reason for Visit * Reason Onset Date Comments Appointment 11/30/2024 Encounter Details Date Type Department Care Team ([facility] st Contact Info) Description 11/30/[address] [facility] [address] [place] [phone] Kati Gonzalez MD [address] [place] [phone] Appointment Social History Tobacco Use Types Packs/Day Years [...] as of this encounter Progress Notes * Sylvie Montgomery MA - 11/30/2024 3:48 PM EST Spoke with patient she would like him to see Nicole for his sugar because she speak telugu.. * Lucrecia Tellez - 11/30/2024 2:11 PM EST Patient would like to schedule an appointment with Yuli but I dont see anything in patients last office notes saying to do that. Please advise patient at [phone] documented in this encounter Plan of Treatment Upcoming Encounters Date Type Department Care Team (Late st Contact Info) Description 12/28/2024 11:20 AM EST Anticoagulation - Warfarin Visit [facility] [address] [phone] 01/31/2025 9:45 AM EST Office Visit Adult Medicine [address] [phone] Juan Velasquez PA [address] [place] [address] 03/21/2025 10:00 AM EDT Office Visit Endocrinology [address] [phone] Nicole Samson [facility] [place] [address] 06/18/2025 9:45 AM EDT Office Visit Adult Medicine [address] [phone] Moris Machado MD [address] [place] [address] documented as of this encounter Visit Diagnoses Not on filedocumented in this encounter Care Teams Client Customer Manager Relationship Specialty Start Date End Date Moris Machado MD [address] [place] [address] PCP - General Internal Medicine 10/09/24 documented as of this encounter
--- OUTSIDE RECORDS SUMMARY | 2024-12-27 11:33 | XMS_ITS | Clinical Summary ---
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 Name Role Phone Moris Machado MD Primary Care Provider [phone] Allergies No known active allergies Medications Medication Sig Dispensed Refills Start Date End Date Status rosuvastatin (CRESTOR) 10 mg tablet TAKE 1 TABLET BY MOUTH AT BEDTIME 90 tablet 1 4 Active Entresto 49-51 mg per tablet TAKE 1 TABLET BY MOUTH TWICE DAILY 180 tablet 1 4 Active albuterol 2.5 mg /3 mL (0.083 %) nebulizer solution USE 1 VIAL VIA NEBULIZER EVERY 4 HOURS NEEDED FOR WHEEZING 360 mL 2 4 10/15/20 25 Active Additional Information Patient taking differently: 2.5 mg nebulization Every 4 hours PRN, wheezing, Reported on 11/20/2024 adalimumab (Humira,CF, Pen) 40 mg/0.4 mL pen Inject 0.4 mL (40 mg total) under the skin every 14 (fourteen) days. 1 Active bumetanide (BUMEX) 1 mg tablet Take 1 tablet (1 mg total) by mouth 2 (two) times a day. Active calcitrioL (ROCALTROL) 0.25 mcg capsule Take 1 capsule (0.25 mcg total) by mouth every other day. 4 Active cholecalciferol (VITAMIN D-3) 50 mcg (2,000 unit) tablet Take 1 tablet (2,000 Units total) by mouth 1 (one) time each day. 4 Active dilTIAZem CD (CARDIZEM CD) 240 mg 24 hr capsule Take 1 capsule (240 mg total) by mouth 1 (one) time each day. 4 Active folic acid (FOLVITE) 400 mcg tablet Take 1 tablet (0.4 mg total) by mouth 1 (one) time each day. 4 Active ipratropium-alb uteroL (Combivent Respimat) 20-100 mcg/actuation inhaler Inhale 1 Puff into the lungs every 6 hours as needed (wheezing) for up to 30 days. 3 Active metoprolol tartrate (LOPRESSOR) 50 mg tablet Take 1 tablet (50 mg total) by mouth 2 (two) times a day. 4 Active nitroglycerin (NITROSTAT) 0.[address] 1 tablet (0.4 mg total) under the tongue every 5 (five) minutes if needed for chest pain. 3 Active predniSONE (DELTASONE) 10 mg tablet Take 1 tablet (10 mg total) by mouth 1 (one) time each day. 4 Active sildenafil (REVATIO) 20 mg tablet Take 1 tablet (20 mg total) by mouth 3 (three) times a day. 4 Active albuterol HFA (Ventolin HFA) 90 mcg/actuation inhaler Inhale 2 puffs by mouth every 4 (four) hours if needed for wheezing or shortness of breath. 4 Active traMADoL (ULTRAM) 50 mg tablet Take 1 tablet (50 mg total) by mouth 2 (two) times a day if needed for severe pain. for pain Max Daily Amount: 100 mg 56 tablet 4 Active Breo Ellipta 200-25 mcg/dose inhaler Inhale 1 puff by mouth 1 (one) time each day. 4 Active timolol (TIMOPTIC) 0.5 % ophthalmic solution INSTILL 1 DROP IN BOTH EYES IN THE MORNING 3 Active omeprazole (PriLOSEC) [address] capsule TAKE 1 CAPSULE BY MOUTH DAILY 90 capsule 1 4 Active warfarin (COUMADIN) 2.5 mg tablet Take 1 tablet (2.5 mg total) by mouth every other day. Evening dose Active warfarin (COUMADIN) 5 mg tablet TAKE 1 TABLET BY MOUTH DAILY. MAY CAUSE HEAVY BLEEDING. TAKE AT THE SAME TIME EVERY_DAY. DO NOT CHANGE DIETARY HABITS 90 tablet 1 5 Active Ofev 150 mg capsule Take 1 capsule (150 mg total) by mouth 2 (two) times a day. 5 Active Oxygen Therapy via Nasal Cannula (O2) gas Inhale 4-5 L/min by mouth continuously. via nasal canula Active empagliflozin (Jardiance) 25 mg tablet Take 25 mg by mouth daily. 90 tablet 3 5 Active insulin glargine (Lantus Solostar U-100 Insulin) 100 unit/mL (3 mL) injection pen INJECT 20 UNITS SUBCUTANEOUS EVERY EVENING 15 mL 11 5 Active famotidine (PEPCID) 20 mg tablet Take 1 tablet (20 mg total) by mouth 2 (two) times a day for 15 days. 30 tablet 5 01/02/20 25 Active empagliflozin (Jardiance) 25 mg tablet Take 25 mg by mouth daily. 4 12/14/19 25 Discontinued(Reo rder) warfarin (COUMADIN) 5 mg tablet Take 1 tablet (5 mg total) by mouth every other day. Evening dose 4 12/04/19 25 Discontinued Lantus Solostar U-100 Insulin 100 unit/mL (3 mL) injection pen INJECT 20 UNITS SUBCUTANEOUS EVERY EVENING 15 mL 4 12/14/19 25 Discontinued(Reo rder) predniSONE (DELTASONE) 20 mg tablet Take 2 tablets (40 mg total) by mouth 1 (one) time each day for 3 days, THEN 1 tablet (20 mg total) 1 (one) time each day for 3 days. 9 each 4 11/29/19 25 cefpodoxime (VANTIN) 100 mg tablet Take 1 tablet (100 mg total) by mouth 2 (two) times a day for 5 days. 10 tablet 4 11/28/19 25 doxycycline (VIBRAMYCIN) 100 mg capsule Take 1 capsule (100 mg total) by mouth 2 (two) times a day for 5 days. 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 His last echocardiogram April 2022 showed normal LV function. He appears euvolemic on physical exam today without clinical signs of acute heart failure. We will continue with his plans to complete a new echocardiogram to reevaluate his LV function. He continues on medical therapy with metoprolol, Entresto, and Jardiance. We did discuss that the patient was referred for potential CardioMEMS placement and unfortunately the patient did not attend this appointment. We discussed the importance of preventing hospitalizations and the benefits of CardioMEMS given his history. He will reach out and reschedule this appointment. I've asked the patient to call if they develop worsening symptoms of heart failure such as increased shortness of breath, new or worsening cough, increased swelling in the legs or ankles, or weight gain of more than 2 pounds in one day or 4 pounds in one week. Assessment & Plan (12/10/2024 3:56 PM EST): Chronic hypoxemic respiratory failure 08/11/2023 Assessment & Plan (12/10/2024 3:56 PM EST): SOB (shortness of breath) 08/11/2023 SVT (supraventricular tachycardia) 08/11/2023 Overview (10/19/2024): Last Assessment & Plan: The patient was noted to have an episode of SVT during his hospitalization. He continues on metoprolol as prescribed. His heart rate is well controlled today. He denies any palpitations or dizziness the patient was ordered for 48-hour Holter monitor to assess for any further arrhythmias which showed normal sinus rhythm with PACs with PAC burden of 8.3%. No evidence of sustained arrhythmias were noted. At this point, we will continue current therapies. Renal osteodystrophy 08/04/2023 Stage 3b chronic kidney disease 08/04/2023 Type 2 diabetes mellitus wit h diabetic chronic kidney disease 08/04/2023 Heart failure 06/26/2023 Pulmonary HTN 05/19/2023 Overview (10/19/2024): Last Assessment & Plan: Patient has a history of pulmonary hypertension likely in the setting of COPD and atrial fibrillation. EKG today showed normal sinus rhythm with right bundle branch block. He follows with pulmonology Dr. Bazzi given his history of interstitial lung disease and continues on oxygen therapy. Continue to follow with his ophthalmology surgical technician and continue on his furosemide dose of 40 mg orally daily. We will update an echocardiogram to reevaluate his right ventricular function. Influenza 03/05/2022 Overview (10/19/2024): D/C'd from [facility] on 11/23/21 Lymphadenopathy 03/05/2022 Overview (10/19/2024): D/C'd from [facility] on 11/23/21 ILD (interstitial lung disease) 11/30/2021 Overview (10/19/2024): D/C'd from [facility] on 11/23/21 Assessment & Plan (12/10/2024 3:56 PM EST): 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 Old MO (myocardial infarction) 06/12/2015 Glaucoma 06/05/2012 A-fib 03/16/2012 Overview (10/19/2024): Last Assessment & Plan: Patient has a history of atrial fibrillation on chronic anticoagulation with warfarin. He is a [id number] score of 4 and continues on anticoagulation as prescribed. He is also on metoprolol for rate control. His heart rate is well controlled today. He denies any excessive bruising or bleeding. We will continue current therapies. CAD (coronary artery disease) 03/16/2012 Overview (10/19/2024): Last Assessment & Plan: The patient has a history of coronary artery disease status post inferior MO in 2003. He continues on cardioprotective medical therapy with aspirin, metoprolol, and rosuvastatin as prescribed. He denies exertional chest pain or chest pain at rest. The patient is scheduled for a new echocardiogram to be completed in September. At this point, we will continue current therapies. Patient advised to seek emergency medical attention by calling 911 if they were to develop severe dyspnea, chest pain that did not resolve with rest or nitroglycerin, or if they were to faint. HLD (hyperlipidemia) 03/16/2012 Overview (10/19/2024): Last Assessment & Plan: The patient has a history of hyperlipidemia as well as a history of coronary artery disease. His last LDL was noted to be 46. We will continue his current dose of rosuvastatin. I have reviewed with the patient the importance of a heart healthy lifestyle which includes eating a low-fat low-salt diet, getting regular exercise, maintaining a healthy weight, not smoking, and following up with routine medical care. HTN (hypertension) 03/16/2012 Overview (10/19/2024): Last Assessment & Plan: Patient's blood pressure is well controlled today. He has been tolerating Entresto well. He will continue on his current antihypertensive medication regimen. No changes to medical therapies. Seropositive rheumatoid arthritis 03/16/2012 Overview (10/19/2024): RF, JENNIFER positive. Onset ~ 2004 On methotrexate (~2007) and leflunomide added (~03/2010?); Leflunomide held in the spring of 2016 because of leukopenia. Restarted at a low dose but synovitis continued. Leflunomide stopped March 2017. Humira added to methotrexate, May 2017 Last Assessment & Plan: Keep same treatment Lab due in May and July Return in July Resolved Problems Problem Noted Date Diagnosed Date Resolved Date COPD exacerbation 03/05/2022 11/23/2024 Overview (10/19/2024): Acute D/C'd from [facility] on 11/23/21 Encounters Date Type Department Care Team Description 12/26/[address] [phone] Moris Machado MD [facility] 12/26/2024 Anticoagulation - Warfarin Visit [facility] [address] [phone] Tiffanie Saba LPN Atrial fibrillation, unspecified type (CMS/HCC) (Primary Dx); assisted (current) use of anticoagulants 12/25/2024 Billing Patient Not Present [address] [phone] Moris Machado MD Acute and chronic respiratory failure with hypoxia (CMS/HCC) (Primary Dx); COPD with acute exacerbation (CMS/HCC); Chronic systolic (congestive) heart failure (CMS/HCC); Pulmonary hypertension, unspecified (CMS/HCC); Pulmonary fibrosis, unspecified (CMS/HCC); Paroxysmal atrial fibrillation (CMS/HCC); Rheumatoid arthritis, involving unspecified site, unspecified whether rheumatoid factor present (CMS/HCC); Type 2 diabetes mellitus with diabetic chronic kidney disease, unspecified CKD stage, unspecified whether esol instructor insulin use (CMS/HCC); Hypertensive heart and chronic kidney disease with heart failure and stage 1 through stage 4 chronic kidney disease, or chronic kidney disease (CMS/HCC); Chronic kidney disease, stage 3b (CMS/HCC); Gastroesophageal reflux disease without esophagitis; Atherosclerosis of crow coronary artery without angina pectoris, unspecified whether crow or transplanted heart; Hyperlipidemia, unspecified hyperlipidemia type; assisted (current) use of insulin (CMS/HCC); director group sales (current) use of systemic steroids; assisted (current) use of antithrombotics/anti platelets; director group sales (current) use of aspirin; director group sales (current) use of oral hypoglycemic drugs; Dependence on supplemental oxygen 12/24/2024 Telephone Adult Medicine [address] [place] [phone] Silvana Torres MA faxed order ([facility] order #[id number]) 12/20/2024 Nurse Triage Adult [address] [phone] Brooke Coronel RN 12/19/2024 Billing Patient Not Present [address] [phone] Moris Machado MD Acute and chronic respiratory failure with hypoxia (CMS/HCC) (Primary Dx); Chronic obstructive pulmonary disease with (acute) exacerbation (CMS/HCC); Chronic diastolic (congestive) heart failure (CMS/HCC); Pulmonary hypertension, unspecified (CMS/HCC); Pulmonary fibrosis, unspecified (CMS/HCC); Paroxysmal atrial fibrillation (CMS/HCC); Rheumatoid arthritis, involving unspecified site, unspecified whether rheumatoid factor present ([facility]); Type 2 diabetes mellitus with diabetic chronic kidney disease, unspecified CKD stage, unspecified whether esol instructor insulin use ([facility]); Hypertensive heart and chronic kidney disease with heart failure and stage 1 through stage 4 chronic kidney disease, or unspecified chronic kidney disease (CMS/HCC); Stage 3 chronic kidney disease, unspecified whether stage 3a or 3b CKD (CMS/[facility]); Gastro-esophageal reflux disease without esophagitis; Hyperlipidemia, unspecified hyperlipidemia type; assisted (current) use of insulin (CMS/HCC); assisted (current) use of systemic steroids; director group sales (current) use of antithrombotics/anti platelets; director group sales (current) use of aspirin; director group sales (current) use of oral hypoglycemic drugs; Dependence on supplemental oxygen 12/18/2024 7:18 AM EST - 12/18/2024 11:27 AM EST [facility] Emergency [address] [place] [phone] Katharina Castellanos DO Gastritis without bleeding, unspecified chronicity, unspecified gastritis type (Primary Dx) Discharge Disposition: Home or Self Care 12/14/2024 9:00 AM EST Consult Endocrinology [address] [phone] Nicole Samson PA Diabetes mellitus due to underlying condition, uncontrolled, with hyperglycemia (CMS/HCC) (Primary Dx); Stage 3b chronic kidney disease (CMS/HCC); Secondary hypertension 12/11/2024 2:04 PM EST - 12/11/2024 8:[address] [facility] Emergency [address] [place] [phone] Brent Ojeda MD Shortness of breath (Primary Dx); COPD exacerbation (CMS/HCC) Discharge Disposition: Home or Self Care 12/10/2024 11:00 AM EST Office Visit Adult Medicine [address] [phone] Moris Machado MD Encounter for subsequent annual wellness visit (AWV) in Medicare patient (Primary Dx); Acute on chronic heart failure with preserved ejection fraction (CMS/HCC); Chronic hypoxemic respiratory failure (CMS/HCC); Acute on chronic respiratory failure with hypoxia (CMS/HCC); ILD (interstitial lung disease) (CMS/HCC) 12/10/2024 10:30 AM EST Anticoagulation - Warfarin Visit Coumadin Clinic - [address] [phone] Atrial fibrillation, unspecified type (CMS/HCC) (Primary Dx); 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 12/10/2024 Telephone Adult Medicine [address] [phone] Silvana Torres MA faxed order ([facility] PT Plan of Care order #[id number]) 12/07/2024 Telephone Endocrinology [address] [phone] Kati Gonzalez MD PRIOR AUTHORIZATION 12/03/2024 Telephone Endocrinology [address] [phone] Kati Gonzalez MD 11/30/2024 Telephone Endocrinology [address] [phone] Kati Gonzalez MD Appointment 11/27/2024 10:10 AM EST Anticoagulation - Warfarin Visit Coumadin [address] [phone] Atrial fibrillation, unspecified type (CMS/HCC) (Primary Dx); assisted (current) use of anticoagulants 11/20/2024 10:33 AM EST - 11/23/2024 3:55 PM EST Hospital Encounter [facility] [address] [place] [address] Davidson Hebert MD Bukalo, Nermina, MD Kokosadze, Estate, MD COPD exacerbation (CMS/HCC) (Primary Dx) Discharge Disposition: Home-Health Care [facility] 11/13/2024 Telephone Adult Medicine [address] [phone] Morsi Machado MD [facility] Order ([facility]Order #[id number]) 11/06/2024 Telephone Adult [address] [phone] Moris Machado MD [facility] Order ([facility]Order #[id number]) 11/01/2024 [place] Adult [address] [phone] Moris Machado MD [facility] Order ([facility]Order #[id number]) 10/31/2024 Telephone Adult [address] [phone] Silvana Torres MA faxed order ([facility] order# [id number]) 10/26/2024 10:30 AM EST Anticoagulation - Warfarin Visit Coumadin [address] [phone] Atrial fibrillation, unspecified type (CMS/HCC) (Primary Dx); 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 Follow-up from Last 3 Months Immunizations Name Administration Dates Next Due Influenza Quadravalent, 0.5m l (Fluzone High-dose) 65yo and older 08/09/2022 Influenza trivalent, 0.5mL ( Fluzone High-dose) 65yo and older 08/05/2020,10/10/2019,08/20/2019,07/28,09/21/2017,08/22/2017,07/27/2016 Influenza trivalent, with pr eservative (Fluzone; Afluria) 6mo and older 08/07/2015,08/10/2013 Influenza, Unspecified 09/28/2021,2015,08/23/2014,08/28 Pneumococcal conjugate 13 va lent (Prevnar 13, PCV13) 2mo and older 04/08/2015 Pneumococcal polysaccharide 23 valent (Pneumovax 23) 2yo and older 10/06/2021,11/16/2007 Tetanus Toxoid, Unspecified 11/16/2007 Zoster recombinant (Shingrix ) 19yo and older 05/12/2019,07/28/2018 Surgical History Surgery Date Site/Laterality Comments COLONOSCOPY 10/17/19 [facility] PROCEDURE: HISTORICAL COLONOSCOPY; COMMENT: sigmoid adenoma and tics COLONOSCOPY 05/02/14 PROCEDURE: AR COLONOSCOPY STOMA W/RMVL BART POLYP/OTH LES SNARE; COMMENT: adenoma and tics; repeat in 5 yrs Medical History Medical History Date Comments A-fib ([facility]) 03/16/2012 DX:A-fib ([facility]) CAD (coronary artery disease) 03/16/2012 DX :CAD (coronary artery disease) High cholesterol 03/16/2012 DX:High cholest anh HTN (hypertension) 03/16/2012 DX:HTN (hyper tension) Historical Medical DX 04/20/2012 DX:PPD neg ative RA (rheumatoid arthritis) ([facility]) 03/16/2012 DX:RA (rheumatoid arthritis) ([facility]) Glaucoma 06/05/2012 DX:Glaucoma 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 DX:Schamberg 's disease ILD (interstitial lung disea se) ([facility]) 11/30/2021 DX:ILD (interstitial lung di sease) ([facility]) Asthma DX:Asthma Family History Medical History Relation Name Comments Coronary artery disease Neg Hx Social History Tobacco Use Types Packs/Day Years [...] file Not on file Not on file Obstetrics History Last Filed Vital Signs Vital Sign Reading Time Taken Comments Blood Pressure 114/71 12/18/2024 11:14 AM EST Pulse 65 12/18/2024 11:14 AM EST Temperature 36.8 ??C (98.3 ??F) 12/18/2024 11:[address] Respiratory Rate 16 12/18/2024 11:14 AM EST Oxygen Saturation 91% 12/18/2024 11:14 AM EST Inhaled Oxygen Concentration - - Weight 80.7 kg (178 lb) 12/18/2024 7:40 AM EST Height 180.3 cm (5' 11 ) 12/18/2024 7:40 AM EST Body Mass Index 24.83 12/18/2024 7:40 AM EST Plan of Treatment Upcoming Encounters Date Type Department Care Team (Late st Contact Info) Description 12/28/2024 11:20 AM EST Anticoagulation - Warfarin Visit Coumadin [address] [phone] 01/31/2025 9:45 AM EST Office Visit Adult Medicine [address] [phone] Juan Velasquez PA [address] [place] [phone] 03/21/2025 10:00 AM EDT Office Visit Endocrinology [address] [phone] Nicole Samson PA [address] [place] [address] 06/18/2025 9:45 AM EDT Office Visit Adult Medicine [place] [address] [phone] Moris Machado MD [address] [place] [address] Health Maintenance Due Date Last Done Comments Diabetes: Annual Foot Exam 1955 RSV Immunization Patients 60+ Years Old (1 - 1-dose 75+ series) 2019 Colorectal Cancer Screening: Colonoscopy 11/06/2022 Social Influencers of Health Screening 11/06/2022 COVID-19 Vaccine ( season) 2024 05/12/2022, 07/30/2021, 02/07/2021, Additional history exists Diabetes: Annual Retina Eye Exam 02/16/2025 02/17/2024 Diabetes: Blood Sugar Control Test (HGBA1C) 04/08/2025 10/09/2024, 05/15/2024 Diabetes: Annual Urine Albumin-Creatinine Ratio (uACR) 10/09/2025 10/09/2024, 01/17/2024 Depression Screening 12/10/2025 12/10/2024, 12/08/19 24 Medicare Annual Wellness Visit 12/10/2025 12/10/2024 Diabetes: Annual GFR (Glomerular Filtration Rate) 12/18/2025 12/18/2024, 12/11/2024, 11/23/2024, Additional history exists Falls Risk Assessment 12/18/2025 12/18/2024 , 12/10/2024, 11/09/2023 Hypertension/CHF/CAD Annual BMP Blood Test 12/18/2025 12/18/2024, 12/11/2024, 11/23/2024, Additional history exists Cholesterol Screening (Lipid Panel) 10/09/2029 10/09/2024 DTaP,Tdap,and Td Vaccines (2 - Td or Tdap) 01/01/2030 01/01/2020 Zoster Vaccines Completed 05/12/2019, 07/28/2018 Pneumococcal Vaccine: 65+ Years Completed 10/06/2021, 04/08/2015, 11/16/2007 Influenza Vaccine Completed 07/31/2024, , 08/20/2022, Additional history exists HIB Vaccines Aged Out No longer eligi ble based on patient's age to complete this topic HPV Vaccines Aged Out No longer eligi ble based on patient's age to complete this topic Hepatitis A Vaccines Aged Out No long er eligible based on patient's age to complete this topic Hepatitis B Vaccines Aged Out No long er eligible based on patient's age to complete this topic IPV Vaccines Aged Out No longer eligi ble based on patient's age to complete this topic MMR Vaccines Aged Out No longer eligi ble based on patient's age to complete this topic Meningococcal ACWY Vaccine Aged Out N o longer eligible based on patient's age to complete this topic RSV Immunization Patients Under 20 months Aged Out No longer eligible based on patient's age to complete this topic Varicella Vaccines Aged Out No longer eligible based on patient's age to complete this topic Procedures Procedure Name Priority Date/Time Associated Diagnosis Comments PROTHROMBIN TIME WITH INR Routine 12/26/2024 PROTHROMBIN TIME WITH INR STAT 12/18/2024 9:[address] ABDOMEN PELVIS WO CONTRAST STAT 12/18/2024 9:19 AM EST CBC WITH AUTO DIFFERENTIAL STAT 12/18/2024 7:43 AM EST LIPASE STAT 12/18/2024 7:43 AM EST COMPREHENSIVE METABOLIC PANEL STAT 12/18/2024 7:43 AM EST CBC AND DIFFERENTIAL STAT 12/18/2024 7:43 AM EST ECG OUTSIDE 12/18/2024 POC GLUCOSE Routine 12/14/2024 9:21 AM EST Diabetes mellitus due to underlying condition, uncontrolled, with hyperglycemia (CMS/HCC) ECG 12-LEAD STAT 12/11/2024 5:24 PM EST RESPIRATORY VIRUS PANEL MOLECULAR STUDY STAT 12/11/2024 4:24 PM EST CBC WITH AUTO DIFFERENTIAL STAT 12/11/2024 4:23 PM EST TROPONIN I HIGH SENSITIVITY STAT 12/11/2024 4:23 PM EST COMPREHENSIVE METABOLIC PANEL STAT 12/11/2024 4:23 PM EST CBC AND DIFFERENTIAL STAT 12/11/2024 4:23 PM EST XR CHEST 2 VIEWS STAT 12/11/2024 4:11 PM EST ECG ANNOTATED 12/11/2024 ECG OUTSIDE 12/11/2024 POC PROTIME INR BLOOD Routine 12/10/2024 Atrial fibrillation, unspecified type (CMS/HCC) assisted (current) use of anticoagulants POC PROTIME INR BLOOD Routine 11/27/2024 Atrial fibrillation, unspecified type (CMS/HCC) assisted (current) use of anticoagulants POCT GLUCOSE BLOOD Routine 11/23/2024 11 :14 AM EST POCT GLUCOSE BLOOD Routine 11/23/2024 8: 04 AM EST MANUAL DIFFERENTIAL - SYSMEX WAM Routine 11/23/2024 5:57 AM EST CBC WITH AUTO DIFFERENTIAL Routine 11/23/2024 5:57 AM EST PROTHROMBIN TIME WITH INR Routine 11/23/2024 5:57 AM EST CBC AND DIFFERENTIAL Routine 11/23/2024 5:57 AM EST BASIC METABOLIC PANEL Routine 11/23/2024 5:57 AM EST POCT GLUCOSE BLOOD Routine 11/22/2024 8: 09 PM EST POCT GLUCOSE BLOOD Routine 11/22/2024 3: 23 PM EST LAVENDER - EDTA Routine 11/22/2024 1:34 PM EST SST - GOLD Routine 11/22/2024 1:34 PM EST EXTRA TUBES Routine 11/22/2024 1:34 PM EST PROTHROMBIN TIME WITH INR Routine 11/22/2024 1:34 PM EST POCT GLUCOSE BLOOD Routine 11/22/2024 11 :35 AM EST OXYGEN THERAPY, ADULT Routine 11/22/2024 8:02 AM EST POCT GLUCOSE BLOOD Routine 11/22/2024 7: 54 AM EST MANUAL DIFFERENTIAL - SYSMEX WAM Routine 11/22/2024 6:24 AM EST CBC WITH AUTO DIFFERENTIAL Routine 11/22/2024 6:24 AM EST CBC AND DIFFERENTIAL Routine 11/22/2024 6:24 AM EST BASIC METABOLIC PANEL Routine 11/22/2024 6:24 AM EST POCT GLUCOSE BLOOD Routine 11/21/2024 8: 56 PM EST OXYGEN THERAPY, ADULT Routine 11/21/2024 8:01 PM EST POCT GLUCOSE BLOOD Routine 11/21/2024 3: 40 PM EST POCT GLUCOSE BLOOD Routine 11/21/2024 11 :21 AM EST OXYGEN THERAPY, ADULT Routine 11/21/2024 8:01 AM EST OXYGEN THERAPY, ADULT Routine 11/21/2024 8:01 AM EST POCT GLUCOSE BLOOD Routine 11/21/2024 7: 50 AM EST CBC WITH AUTO DIFFERENTIAL Routine 11/21/2024 5:38 AM EST CBC AND DIFFERENTIAL Routine 11/21/2024 5:38 AM EST COMPREHENSIVE METABOLIC PANEL Routine 11/21/2024 5:38 AM EST POCT GLUCOSE BLOOD Routine 11/20/2024 8: 21 PM EST OXYGEN THERAPY, ADULT Routine 11/20/2024 8:01 PM EST POCT GLUCOSE BLOOD Routine 11/20/2024 6: [address] CHEST WO CONTRAST STAT 11/20/2024 5:01 PM EST OXYGEN THERAPY, ADULT Routine 11/20/2024 3:53 PM EST OXYGEN THERAPY, ADULT Routine 11/20/2024 3:53 PM EST XR CHEST 1 VIEW STAT 11/20/2024 11:24 AM EST RESPIRATORY VIRUS PANEL MOLECULAR STUDY STAT 11/20/2024 11:10 AM EST PROTHROMBIN TIME WITH INR STAT 11/20/2024 11:08 AM EST ECG 12-LEAD STAT 11/20/2024 11:07 AM EST PROCALCITONIN STAT Add-on 11/20/2024 11:07 AM EST CBC WITH AUTO DIFFERENTIAL STAT 11/20/2024 11:07 AM EST B-TYPE NATRIURETIC PEPTIDE STAT 11/20/2024 11:07 AM EST BASIC METABOLIC PANEL STAT 11/20/2024 11:07 AM EST CBC AND DIFFERENTIAL STAT 11/20/2024 11:07 AM EST OXYGEN THERAPY, ADULT Routine 11/20/2024 10:51 AM EST OXYGEN THERAPY, ADULT Routine 11/20/2024 10:51 AM EST ECG ANNOTATED 11/20/[address] REPORT 11/08/2024 POC PROTIME INR BLOOD Routine 10/26/2024 Atrial fibrillation, unspecified type ([facility]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 MICROALBUMIN CREATININE URINE RATIO Routine 10/09/2024 10:07 AM EST Diabetes mellitus due to underlying condition, uncontrolled, with hyperglycemia ([facility]) Primary hypertension Encounter for long-term current use of medication HEMOGLOBIN A1C Routine 10/09/2024 9:57 AM EST Diabetes mellitus due to underlying condition, uncontrolled, with hyperglycemia ([facility]) Primary hypertension Encounter for long-term current use of medication LIPID PANEL WITH REFLEX TO DIRECT LDL Routine 10/09/2024 9:57 AM EST Diabetes mellitus due to underlying condition, uncontrolled, with hyperglycemia ([facility]) Primary hypertension Encounter for long-term current use of medication COMPREHENSIVE METABOLIC PANEL Routine 10/09/2024 9:57 AM EST Diabetes mellitus due to underlying condition, uncontrolled, with hyperglycemia ([facility]) Primary hypertension Encounter for long-term current use of medication DIABETES EYE EXAM Routine 02/17/2024 DEPRESSION SCREENING Routine 12/08/2023 FALLS RISK ASSESSMENT Routine 11/09/2023 from Last 3 Months or Most Recently Relevant to Health Maintenance Results * Prothrombin time with INR (12/26/2024) Only the most recent of5 resultswithin the time period is included. INR 2.6 Comment:[employer] Prothrombin Time POC Blood Venous blood specimen / Unknown 12/26/2024 Historical Provider MD LAB BLOOD ORDERAB LES * CT Abdomen Pelvis wo Contrast (12/18/2024 9:19 AM EST) Anatomical Region Laterality Modality Body Computed Tomogra phy 12/18/2024 9:28 AM EST Impressions 12/18/2024 9:36 AM EST No acute findings in the abdomen/pelvis. -------- FINAL REPORT -------- Dictated By: JOSE LUIS SO Dictated Date: 12/18/2024 09:28 ET Assigned Physician: JOSE LUIS SO Reviewed and Electronically Signed By: JOSE LUIS SO Signed Date: 12/18/2024 09:36 ET Workstation ID: [id number] Transcribed By: Self Edit Transcribed Date: 12/18/2024 09:28 ET Narrative 12/18/2024 9:36 AM EST PROCEDURE: CT abdomen/pelvis INDICATION: Pain, vomiting, diarrhea TECHNIQUE: CT of the abdomen and pelvis without contrast. Multiplanar reformats. The examination was performed utilizing dose reduction techniques. ??Total DLP 1109 COMPARISON: ??05/17/2013, 11/20/[address] FINDINGS: ?? LOWER THORAX: Emphysema and bibasilar atelectasis noted at the lung bases. ??Severe coronary artery calcifications. ??Metallic device in the left lower lobe pulmonary artery is unchanged. HEPATOBILIARY: No focal liver lesions. ??Cholelithiasis. ??No biliary duct dilatation. SPLEEN: No splenomegaly. PANCREAS: No focal mass or ductal dilatation. ADRENALS: No nodules. KIDNEYS/URETERS: No hydronephrosis, stones, or solid mass. ??Right renal cyst. PELVIC ORGANS/BLADDER: Unremarkable. PERITONEUM / RETROPERITONEUM: No ascites or free air. No retroperitoneal lymphadenopathy. VESSELS: Scattered atherosclerotic calcifications throughout the aorta and its major branches. No aneurysm. GI TRACT: Colonic diverticulosis. ??No bowel obstruction or wall thickening. ??Normal appendix. BONES AND SOFT TISSUES: Small fat-containing left inguinal and paraumbilical hernias. ??Degenerative changes seen throughout the spine.. Procedure Note Jose Luis So MD - 12/18/2024 PROCEDURE: CT abdomen/pelvis INDICATION: Pain, vomiting, diarrhea TECHNIQUE: CT of the abdomen and pelvis without contrast. Multiplanarreformats. The examination was performed utilizing dose reductiontechniques. Total DLP 1109 COMPARISON: 05/17/2013, 11/20/[address] FINDINGS: LOWER THORAX: Emphysema and bibasilar atelectasis noted at the lung bases.Severe coronary artery calcifications. Metallic device in the left lowerlobe pulmonary artery is unchanged. HEPATOBILIARY: No focal liver lesions. Cholelithiasis. No biliary ductdilatation. SPLEEN: No splenomegaly. PANCREAS: No focal mass or ductal dilatation. ADRENALS: No nodules. KIDNEYS/URETERS: No hydronephrosis, stones, or solid mass. Right renalcyst. PELVIC ORGANS/BLADDER: Unremarkable. PERITONEUM / RETROPERITONEUM: No ascites or free air. No retroperitoneallymphadenopathy. VESSELS: Scattered atherosclerotic calcifications throughout the aorta andits major branches. No aneurysm. GI TRACT: Colonic diverticulosis. No bowel obstruction or wallthickening. Normal appendix. BONES AND SOFT TISSUES: Small fat-containing left inguinal andparaumbilical hernias. Degenerative changes seen throughout the spine.. IMPRESSION: No acute findings in the abdomen/pelvis. -------- FINAL REPORT -------- Dictated By: JOSE LUIS SO Dictated Date: 12/18/2024 09:28 ET Assigned Physician: JOSE LUIS SO Reviewed and Electronically Signed By: JOSE LUIS SO Signed Date: 12/18/2024 09:36 ET Workstation ID: [id number] Transcribed By: Self Edit Transcribed Date: 12/18/2024 09:28 ET Hectorramana Encarnacion Emanuel DO IMG CT PROCEDURES * (ABNORMAL) CBC auto differential (12/18/2024 7:43 AM EST) Only the most recent of6 resultswithin the time period is included. WBC 6.9 4.8 - 10.8 K/mcL LAB HEMETOLOGY METHOD 12/18/2024 8:37 AM EST [facility] RBC 4.80 4.50 - 5.50 M/mcL LAB HEMETOLOGY METHOD 12/18/2024 8:37 AM EST [facility] Hemoglobin 12.7(L) 13.5 - 17.5 g/dL LAB HEMETOLOGY METHOD 12/18/2024 8:37 AM [facility] Hematocrit 41.1(L) 42.0 - 54.0 % LAB HEMETOLOGY METHOD 12/18/2024 8:37 AM [facility] MCV 86.0 79.0 - 98.0 FL LAB HEMETOLOGY METHOD 12/18/2024 8:37 AM [facility] MCH 26.6(L) 27.0 - 32.0 pcg LAB HEMETOLOGY METHOD 12/18/2024 8:37 AM [facility] MCHC 30.9(L) 32.0 - 37.0 g/dL LAB HEMETOLOGY METHOD 12/18/2024 8:37 AM [facility] RDW 22.4(H) 11.0 - 15.0 % LAB HEMETOLOGY METHOD 12/18/2024 8:37 AM [facility] Platelets 172 130 - 400 K/mcL LAB HEMETOLOGY METHOD 12/18/2024 8:37 AM [facility] MPV 10.7 7.0 - 11.0 FL LAB HEMETOLOGY METHOD 12/18/2024 8:37 AM [facility] NRBC 0.0 <1.0 % LAB HEMETOLOGY METHOD 12/18/2024 8:37 AM [facility] NRBC Absolute 0.00 <0.10 K/mcL LAB HEMETOLOGY METHOD 12/18/2024 8:37 AM [facility] Neutrophils Relative 52.9 % LAB HEMETOLOGY METHOD 12/18/2024 8:37 AM [facility] Lymphocytes Relative 34.9 % LAB HEMETOLOGY METHOD 12/18/2024 8:37 AM [facility] Monocytes Relative 10.3 % LAB HEMETOLOGY METHOD 12/18/2024 8:37 AM EST [facility] Eosinophils Relative 1.3 % LAB HEMETOLOGY METHOD 12/18/2024 8:37 AM EST [facility] Basophils Relative 0.3 % LAB HEMETOLOGY METHOD 12/18/2024 8:37 AM [facility] Immature Granulocytes Relative 0.3 % LAB HEMETOLOGY METHOD 12/18/2024 8:37 AM EST [facility] Neutrophils Absolute 3.65 1.50 - 7.00 K/mcL LAB HEMETOLOGY METHOD 12/18/2024 8:37 AM EST [facility] Lymphocytes Absolute 2.41 1.00 - 5.00 K/mcL LAB HEMETOLOGY METHOD 12/18/2024 8:37 AM [facility] Monocytes Absolute 0.71 0.20 - 1.00 K/mcL LAB HEMETOLOGY METHOD 12/18/2024 8:37 AM EST [facility] Eosinophils Absolute 0.09 0.00 - 0.50 K/mcL LAB HEMETOLOGY METHOD 12/18/2024 8:37 AM EST [facility] Basophils Absolute 0.02 0.00 - 0.20 K/mcL LAB HEMETOLOGY METHOD 12/18/2024 8:37 AM [facility] Immature Granulocytes Absolute 0.02 0.00 - 0.03 K/mcL LAB HEMETOLOGY METHOD 12/18/2024 8:37 AM EST [facility] Blood Venous blood specimen / Unknown Venipuncture / Unknown 12/18/2024 7:43 AM EST 12/18/2024 8:31 AM EST Katharina Castellanos DO LAB BLOOD ORDERAB LES [facility]) [facility] [address] [place] [address], * Lipase (12/18/2024 7:43 AM EST) Lipase 57 13 - 75 unit/L LAB CHEMISTRY METHOD 12/18/2024 9:07 AM [facility] Blood Venous blood specimen / Unknown Venipuncture / Unknown 12/18/2024 7:43 AM EST 12/18/2024 8:31 AM EST Katharina Encarnacion Castellanos DO LAB BLOOD ORDERAB LES [facility] [address] [place] [address], [place] [phone] * (ABNORMAL) Comprehensive metabolic panel (12/18/2024 7:43 AM EST) Only the most recent of4 resultswithin the time period is included. Pathologist [facility] Sodium 140 133 - 145 mmol/L LAB CHEMISTRY METHOD 12/18/2024 9:07 AM [facility] Potassium 3.5 3.5 - 5.5 mmol/L LAB CHEMISTRY METHOD 12/18/2024 9:07 AM [facility] Comment:Hemolysis present Chloride 106 96 - 110 mmol/L LAB CHEMISTRY METHOD 12/18/2024 9:07 AM [facility] CO2 24 21 - 32 mmol/L LAB CHEMISTRY METHOD 12/18/2024 9:07 AM [facility] Anion Gap 10 3 - 11 LAB CHEMISTRY METHOD 12/18/2024 9:07 AM [facility] Glucose 96 70 - 100 mg/dL LAB CHEMISTRY METHOD 12/18/2024 9:07 AM [facility] BUN 42(H) 5 - 25 mg/dL LAB CHEMISTRY METHOD 12/18/2024 9:07 AM [facility] Creatinine 2.19(H) 0.70 - 1.30 mg/dL LAB CHEMISTRY METHOD 12/18/2024 9:07 AM [facility] eGFR 30(L) >=60 mL/min/1. 73m2 LAB CHEMISTRY METHOD 12/18/2024 9:07 AM [facility] Comment:Calculation based on the??Chronic Kidney Disease Epidemiology Collaboration (CKD-EPI) equation refit??without adjustment for race. BUN/Creatinine Ratio 19.2 LAB CHEMISTRY METHOD 12/18/2024 9:07 AM [facility] Calcium 6.4(L) 8.5 - 10.5 mg/dL LAB CHEMISTRY METHOD 12/18/2024 9:07 AM [facility] AST (SGOT) 34 10 - 42 unit/L LAB CHEMISTRY METHOD 12/18/2024 9:07 AM [facility] Comment:Hemolysis present ALT (SGPT) 28 10 - 60 unit/L LAB CHEMISTRY METHOD 12/18/2024 9:07 AM [facility] Alkaline Phosphatase 43 42 - 121 unit/L LAB CHEMISTRY METHOD 12/18/2024 9:07 AM [facility] Total Protein 6.5 6.0 - 8.0 g/dL LAB CHEMISTRY METHOD 12/18/2024 9:07 AM [facility] Albumin 3.1(L) 3.2 - 5.0 g/dL LAB CHEMISTRY METHOD 12/18/2024 9:07 AM [facility] Total Bilirubin 0.5 0.0 - 1.4 mg/dL LAB CHEMISTRY METHOD 12/18/2024 9:07 AM [facility] Blood Venous blood specimen / Unknown Venipuncture / Unknown 12/18/2024 7:43 AM EST 12/18/2024 8:31 AM EST Katharina Catsellanos DO LAB BLOOD ORDERAB LES [facility] [address] [place] [address], * ECG-Outside (12/18/2024) Only the most recent of2 resultswithin the time period is included. Provider Onbase MD ECG ORDERABLES * POC glucose manually resulted (12/14/2024 9:21 AM EST) [facility] Glucose POC 124 mg/dL Comment:non fasting Blood Capillary blood specimen / Unknown 12/14/2024 9:21 AM EST Nicole ROSALES POINT OF CARE TEST ENTER/EDIT ORDERABLES * 12-Lead ECG (12/11/2024 5:24 PM EST) Only the most recent of2 resultswithin the time period is included. [facility] Ventricular Rate ECG 73 BPM GEMUSE Atrial Rate 73 BPM GEMUSE P-R Interval 148 ms GEMUSE QRS Duration 130 ms GEMUSE Q-T Interval 440 ms GEMUSE QTc 484 ms GEMUSE P Wave [place] 76 degrees GEMUSE R [place] 85 degrees GEMUSE T [place] -2 degrees GEMUSE ECG Interpretation Sinus rhythm with Premature supraventricular complexes Right bundle branch block Abnormal ECG When compared with ECG of 20-NOV-2024 11:07, Premature ventricular complexes are no longer Present Confirmed by Betty ATKINSON JOHN ([id number]) on 12/11/2024 9:52:05 PM GEMUSE 12/11/2024 5:24 PM EST 12/11/2024 9:52 PM EST Brent Ojeda MD ECG ORDERABLES GEMUSE * Respiratory virus panel molecular study (12/11/2024 4:24 PM EST) Only the most recent of2 resultswithin the time period is included. [facility] Adenovirus Detection by PCR Not Detected Not Detected LAB MICROBIOLOGY METHOD 12/11/2024 6:04 PM EST [facility] Influenza A PCR Not Detected Not Detected LAB MICROBIOLOGY METHOD 12/11/2024 6:04 PM EST [facility] Influenza B PCR Not Detected Not Detected LAB MICROBIOLOGY METHOD 12/11/2024 6:04 PM [facility] Coronavirus 229E Not Detected Not Detected LAB MICROBIOLOGY METHOD 12/11/2024 6:04 PM [facility] Coronavirus HKU1 Not Detected Not Detected LAB MICROBIOLOGY METHOD 12/11/2024 6:04 PM [facility] Coronavirus OC43 Not Detected Not Detected LAB MICROBIOLOGY METHOD 12/11/2024 6:04 PM [facility] Coronavirus NL63 Not Detected Not Detected LAB MICROBIOLOGY METHOD 12/11/2024 6:04 PM [facility] Parainfluenza Virus 1 Not Detected Not Detected LAB MICROBIOLOGY METHOD 12/11/2024 6:04 PM [facility] Parainfluenza Virus 2 Not Detected Not Detected LAB MICROBIOLOGY METHOD 12/11/2024 6:04 PM [facility] Parainfluenza Virus 3 Not Detected Not Detected LAB MICROBIOLOGY METHOD 12/11/2024 6:04 PM [facility] Parainfluenza Virus 4 Not Detected Not Detected LAB MICROBIOLOGY METHOD 12/11/2024 6:04 PM [facility] RSV PCR Not Detected Not Detected LAB MICROBIOLOGY METHOD 12/11/2024 6:04 PM [facility] Human Metapneumovirus A and B Not Detected Not Detected LAB MICROBIOLOGY METHOD 12/11/2024 6:04 PM [facility] Rhinovirus/Entero virus Not Detected Not Detected LAB MICROBIOLOGY METHOD 12/11/2024 6:04 PM [facility] Bordetella pertussis Not Detected Not Detected LAB MICROBIOLOGY METHOD 12/11/2024 6:04 PM [facility] Bordetella parapertussis Not Detected Not Detected LAB MICROBIOLOGY METHOD 12/11/2024 6:04 PM [facility] Mycoplasma pneumo by PCR Not Detected Not Detected LAB MICROBIOLOGY METHOD 12/11/2024 6:04 PM [facility] Chlamydia pneumoniae Not Detected Not Detected LAB MICROBIOLOGY METHOD 12/11/2024 6:04 PM EST [facility] SARS COV-2 Not Detected Not Detected LAB MICROBIOLOGY METHOD 12/11/2024 6:04 PM EST [facility] Swab Both anterior nares / Unknown Non-blood Collection / Unknown 12/11/2024 4:24 PM EST 12/11/2024 4:50 PM EST Narrative [facility] - 12/11/2024 6:04 PM EST Testing was performed using the [employer] Respiratory Pathogen PCR Assay. All results must be correlated with the clinical findings. Results should not be used as the sole basis for diagnosis. False Negative results may occur from the presence of sequence variants in the region targeted by the assay or the presence of inhibitors. Results may be affected by concurrent antiviral/antimicrobial therapy or levels of organisms that are below the limit of detection. Brent Ojeda MD LAB MICROBIOLOGY - GENERAL ORDERABLES Performing Organization Address City/[facility] Co de Phone Number [facility] [address] [place] [address], * Troponin I High Sensitivity (12/11/2024 4:23 PM EST) [facility] High Sensitivity Troponin I 32 <=79 ng/L LAB CHEMISTRY METHOD 12/11/2024 5:20 PM EST [facility] Blood Venous blood specimen / Unknown Venipuncture / Unknown 12/11/2024 4:23 PM EST 12/11/2024 4:52 PM EST Narrative [facility] - 12/11/2024 5:20 PM EST High levels of biotin in samples may falsely decrease hsTroponin values. ??Use caution when interpreting hsTroponin results in patients taking biotin who exhibit renal impairment (eGFR <60) or in patients taking more than 20 mg/day of biotin. Brent Ojeda MD LAB BLOOD ORDERAB LES [facility] [address] [place] [address], [place] [phone] * XR Chest 2 Views (12/11/2024 4:11 PM EST) Anatomical Region Laterality Modality Body Radiographic Mary ging 12/11/2024 4:34 PM EST Impressions 12/11/2024 4:37 PM EST Impression: 1. Stable mild cardiomegaly. 2. Fine bibasilar reticular opacities, unchanged from the previous study, most likely representing interstitial fibrosis. Telerad CONNIE ([id number]) -------- FINAL REPORT -------- Dictated By: Maria Luisa España Dictated Date: 12/11/2024 16:34 ET Assigned Physician: Maria Luisa España Reviewed and Electronically Signed By: Maria Luisa España Signed Date: 12/11/2024 16:37 ET Workstation ID: [id number] Transcribed By: Self Edit Transcribed Date: 12/11/2024 16:34 ET Narrative 12/11/2024 4:37 PM EST History: Dyspnea. Comparison: 11/20/24, thoracic CT 11/20/24. No earlier studies are available. Findings: PA and lateral views. The cardiac silhouette remains mildly enlarged. 15 mm metallic foreign body projecting within the central left lower lobe is unchanged, corresponding to a pulmonary artery pressure monitor device. Hilar contours are stable. The vascular markings are attenuated in the upper lobes, consistent with underlying emphysema, with CT correlation, unchanged. There is a fine reticular pattern at both lung bases, symmetric in appearance, most likely representing interstitial fibrosis given the lack of interval change in the CT findings. No developing airspace consolidations are identified. The costophrenic angles are sharp. Flowing hyperostosis is seen along the anterior aspect of the thoracic spine. Procedure Note Maria Luisa España MD - 12/11/2024 History: Dyspnea. Comparison: 11/20/24, thoracic CT 11/20/24. No earlier studies areavailable. Findings: PA and lateral views. The cardiac silhouette remains mildly enlarged. 15mm metallic foreign body projecting within the central left lower lobe isunchanged, corresponding to a pulmonary artery pressure monitor device.Hilar contours are stable. The vascular markings are attenuated in the upper lobes, consistent withunderlying emphysema, with CT correlation, unchanged. There is a finereticular pattern at both lung bases, symmetric in appearance, most likelyrepresenting interstitial fibrosis given the lack of interval change inthe CT findings. No developing airspace consolidations are identified. Thecostophrenic angles are sharp. Flowing hyperostosis is seen along the anterior aspect of the thoracicspine. IMPRESSION: Impression: 1. Stable mild cardiomegaly. 2. Fine bibasilar reticular opacities, unchanged from the previous study,most likely representing interstitial fibrosis. Telerad CONNIE ([id number]) -------- FINAL REPORT -------- Dictated By: Maria Luisa España Dictated Date: 12/11/2024 16:34 ET Assigned Physician: Maria Luisa España Reviewed and Electronically Signed By: Maria Luisa España Signed Date: 12/11/2024 16:37 ET Workstation ID: [id number] Transcribed By: Self Edit Transcribed Date: 12/11/2024 16:34 ET Brent Ojeda MD IMG XR PROCEDURES * ECG-Annotated (12/11/2024) Only the most recent of2 resultswithin the time period is included. Provider Onbase ECG ORDERABLES * POC Protime INR Blood (12/10/2024) Only the most recent of3 resultswithin the time period is included. Lot Number INR POC 3.0 Prothrombin Time POC Exp Date Blood 12/10/2024 Historical Provider POINT OF CARE HERMES T ENTER/EDIT ORDERABLES * (ABNORMAL) POCT Glucose, blood (11/23/2024 11:14 AM EST) Only the most recent of12 resultswithin the time period is included. Glucose POCT 288(H) 70 - 100 mg/dL 11/23/2024 11:14 AM [facility] Blood Capillary blood specimen / Unknown 11/23/2024 11:14 AM EST 11/23/2024 11:16 AM EST Lori Serrato MD LAB POINT OF CARE TE ST DOCKED DEVICE UNSOLICITED RESULTS [facility] [address] [place] [address], * (ABNORMAL) Manual differential (11/23/2024 5:57 AM EST) Only the most recent of2 resultswithin the time period is included. Neutrophils % 96.0 % LAB HEMETOLOGY METHOD 11/23/2024 8:05 AM [facility] Lymphocytes % 3.0 % LAB HEMETOLOGY METHOD 11/23/2024 8:05 AM [facility] Monocytes % 1.0 % LAB HEMETOLOGY METHOD 11/23/2024 8:05 AM [facility] Eosinophils % 0.0 % LAB HEMETOLOGY METHOD 11/23/2024 8:05 AM [facility] Basophils % 0.0 % LAB HEMETOLOGY METHOD 11/23/2024 8:05 AM [facility] Neutrophils Absolute Manual 22.46(H) 1.50 - 7.00 K/mcL LAB HEMETOLOGY METHOD 11/23/2024 8:05 AM [facility] Lymphocytes Absolute 0.70(L) 1.00 - 5.00 K/mcL LAB HEMETOLOGY METHOD 11/23/2024 8:05 AM [facility] Monocytes Absolute Manual 0.23 0.20 - 1.00 K/mcL LAB HEMETOLOGY METHOD 11/23/2024 8:05 AM [facility] Eosinophils Absolute Manual 0.00 0.00 - 0.50 K/mcL LAB HEMETOLOGY METHOD 11/23/2024 8:05 AM [facility] Basophils Absolute Manual 0.00 0.00 - 0.20 K/mcL LAB HEMETOLOGY METHOD 11/23/2024 8:05 AM [facility] Rbc Morphology Consistent with indices Consistent with indices, Normal for [place] LAB HEMETOLOGY METHOD 11/23/2024 8:05 AM [facility] Platelet Morphology - WAM See Note(A) Normal LAB HEMETOLOGY METHOD 11/23/2024 8:05 AM [facility] Comment:PLT: Normal Blood Venous blood specimen / Unknown Venipuncture / Unknown 11/23/2024 5:57 AM EST 11/23/2024 6:48 AM EST Lori Serrato MD LAB BLOOD ORDERABLES [facility] [address] [place] [address], * (ABNORMAL) Basic metabolic panel (11/23/2024 5:57 AM EST) Only the most recent of3 resultswithin the time period is included. Sodium 139 133 - 145 mmol/L LAB CHEMISTRY METHOD 11/23/2024 7:37 AM [facility] Potassium 3.7 3.5 - 5.5 mmol/L LAB CHEMISTRY METHOD 11/23/2024 7:37 AM [facility] Chloride 102 96 - 110 mmol/L LAB CHEMISTRY METHOD 11/23/2024 7:37 AM [facility] CO2 29 21 - 32 mmol/L LAB CHEMISTRY METHOD 11/23/2024 7:37 AM [facility] Anion Gap 8 3 - 11 LAB CHEMISTRY METHOD 11/23/2024 7:37 AM [facility] Glucose 139(H) 70 - 100 mg/dL LAB CHEMISTRY METHOD 11/23/2024 7:37 AM [facility] BUN 55(H) 5 - 25 mg/dL LAB CHEMISTRY METHOD 11/23/2024 7:37 AM [facility] [facility] Creatinine 1.98(H) 0.70 - 1.30 mg/dL LAB CHEMISTRY METHOD 11/23/2024 7:37 AM [facility] eGFR 34(L) >=60 mL/min/1. 73m2 LAB CHEMISTRY METHOD 11/23/2024 7:37 AM [facility] Comment:Calculation based on the??Chronic Kidney Disease Epidemiology Collaboration (CKD-EPI) equation refit??without adjustment for race. BUN/Creatinine Ratio 27.8 LAB CHEMISTRY METHOD 11/23/2024 7:37 AM [facility] Calcium 8.8 8.5 - 10.5 mg/dL LAB CHEMISTRY METHOD 11/23/2024 7:37 AM [facility] Blood Venous blood specimen / Unknown Venipuncture / Unknown 11/23/2024 5:57 AM EST 11/23/2024 6:52 AM EST Lori Serrato MD LAB BLOOD ORDERABLES [facility] [address] [place] [address], [place] [phone] * SST tube (11/22/2024 1:34 PM EST) Extra Tube Hold for add-ons. 11/22/2024 3:01 PM [facility] Comment:Auto resulted. Blood Venous blood specimen / Unknown Venipuncture / Unknown 11/22/2024 1:34 PM EST 11/22/2024 1:49 PM EST Lori Serrato MD LAB BLOOD ORDERABLES [facility] [address] [place] [address], [place] [phone] * Lavender tube (11/22/2024 1:34 PM EST) Extra Tube Hold for add-ons. 11/22/2024 3:01 PM EST [facility] Comment:Auto resulted. Blood Venous blood specimen / Unknown Venipuncture / Unknown 11/22/2024 1:34 PM EST 11/22/2024 1:49 PM EST Lori Serrato MD LAB BLOOD ORDERABLES [facility] [address] [place] [address], * CT Chest wo Contrast (11/20/2024 5:01 PM EST) Anatomical Region Laterality Modality Body Computed Tomogra phy 11/20/2024 6:14 PM EST Impressions 11/20/2024 6:14 PM EST 1. There is asymmetric irregular thickening of the trachea just distal to the thoracic inlet (series 3 images 31-33). This may represent debris. Recommend direct visualization to exclude neoplasm. 2. Peripheral ground-glass and reticular opacities within the bilateral lungs may be secondary to scarring or interstitial infiltrates. 3. Moderate pulmonary emphysema. This document has been electronically signed by: Brianda Davila MD on 11/20/2024 18:14:55 Narrative 11/20/2024 6:[address] chest without contrast Comparison: DX/OT - XR CHEST 1 VW - 11/20/24 11:18 EST Findings: The heart is normal size. The visualized thyroid and mediastinum are unremarkable. There are moderate emphysematous changes. There are peripheral ground-glass and reticular opacities within the bilateral lungs. No consolidation or pleural effusion. No pulmonary nodule. The visualized upper abdomen is unremarkable. The bones are intact. Procedure Note Rohith-Brianda Davila MD - 11/20/2024 CT chest without contrast Comparison: DX/OT - XR CHEST 1 VW - 11/20/24 11:18 EST Findings: The heart is normal size. The visualized thyroid and mediastinum are unremarkable. There are moderate emphysematous changes. There are peripheral ground-glass and reticular opacities within the bilateral lungs. No consolidation or pleural effusion. No pulmonary nodule. The visualized upper abdomen is unremarkable. The bones are intact. IMPRESSION: 1. There is asymmetric irregular thickening of the trachea just distalto the thoracic inlet (series 3 images 31-33). This may represent debris. Recommend direct visualization to exclude neoplasm. 2. Peripheral ground-glass and reticular opacities within the bilateral lungs may be secondary to scarring or interstitial infiltrates. 3. Moderate pulmonary emphysema. This document has been electronically signed by: Brianda Davila MD on 11/20/2024 18:14:55 Sarkis Bosch MD IMG CT PROCEDURES * XR Chest 1 View (11/20/2024 11:24 AM EST) Anatomical Region Laterality Modality Body Radiographic Mary ging 11/20/2024 11:3 7 AM EST Impressions 11/20/2024 11:40 AM EST Abnormal exam. Interstitial and airspace opacities in the mid and lower lung zones. Underlying apical bullous disease may alter the appearance of edema -------- FINAL REPORT -------- Dictated By: Oleg De La Garza Dictated Date: 11/20/2024 11:37 ET Assigned Physician: Oleg De La Garza Reviewed and Electronically Signed By: Oleg De La Garza Signed Date: 11/20/2024 11:40 ET Workstation ID: [id number] Transcribed By: Self Edit Transcribed Date: 11/20/2024 11:37 ET Narrative 11/20/2024 11:40 AM EST EXAMINATION: CHEST CLINICAL INFORMATION: Shortness of breath, dyspnea COMPARISON: None. TECHNIQUE: Portable frontal sitting view of the chest FINDINGS: Devices overlie the patient. There is calcification of the aorta. Cardiac size top normal. There is a pulmonary artery pressure monitoring device (CardioMEMS) . The central vessels are prominent and indistinct. There are moderately severe reticular and some airspace opacities in the mid and lower lung zones. The upper lung zones are hyperlucent. I suspect some calcified nodules. No definite pneumothorax Procedure Note Oleg De La Garza MD - 11/20/2024 EXAMINATION: CHEST CLINICAL INFORMATION: Shortness of breath, dyspnea COMPARISON: None. TECHNIQUE: Portable frontal sitting view of the chest FINDINGS: Devices overlie the patient. There is calcification of the aorta. Cardiacsize top normal. There is a pulmonary artery pressure monitoring device(CardioMEMS) . The central vessels are prominent and indistinct. There are moderatelysevere reticular and some airspace opacities in the mid and lower lungzones. The upper lung zones are hyperlucent. I suspect some calcifiednodules. No definite pneumothorax IMPRESSION: Abnormal exam. Interstitial and airspace opacities in the mid and lowerlung zones. Underlying apical bullous disease may alter the appearance ofedema -------- FINAL REPORT -------- Dictated By: Oleg De La Garza Dictated Date: 11/20/2024 11:37 ET Assigned Physician: Oleg De La Garza Reviewed and Electronically Signed By: Oleg De La Garza Signed Date: 11/20/2024 11:40 ET Workstation ID: [id number] Transcribed By: Self Edit Transcribed Date: 11/20/2024 11:37 ET Davidson Hebert MD IMG XR PROCEDURES * Procalcitonin (11/20/2024 11:07 AM EST) Procalcitonin 0.14 <=0.16 ng/mL LAB CHEMISTRY METHOD 11/21/2024 8:35 AM EST [facility] Blood Venous blood specimen / Unknown Venipuncture / Unknown 11/20/2024 11:07 AM EST 11/20/2024 11:24 AM EST Narrative [facility] - 11/21/2024 8:35 AM EST Procalcitonin > 2.00 ng/ml: Procalcitonin Levels above 2.00 ng/ml, on the first day of ICU admission represent a high risk for progression to severe sepsis and/or septic shock. Procalcitonin < 0.50 ng/ml: Procalcitonin levels below 0.50 ng/ml on the first day of ICU admission represent a low risk for progression to severe sepsis and/or septic shock. Concentrations <0.5 ng/mL do not exclude an infection, on account of local ized infections (without systemic signs) which can be associated with such low concentrations, or a systemic infection in its initial stages (<6 hours). Furthermore, increased procalcitonin can occur without infection. PCT concentrations between 0.5 and 2.0 ng/mL should be interpreted taking into account the patient's history. It is recommended to retest PCT within 6-24 hours if any concentrations <2.0 ng/mL are obtained. Sarkis Bosch MD LAB BLOOD ORDERABLES Performing Organization Address [facility]/ZIP Co de Phone Number [facility] [address] [place] [address], * (ABNORMAL) B-type natriuretic peptide (11/20/2024 11:07 AM EST) BNP 267(H) <=100 pcg/mL LAB CHEMISTRY METHOD 11/20/2024 2:08 PM EST [facility] Blood Venous blood specimen / Unknown Venipuncture / Unknown 11/20/2024 11:07 AM EST 11/20/2024 11:24 AM EST Davidson Hebert MD LAB BLOOD ORDERABLE S Performing Organization Address [facility] Co de Phone Number [facility] [address] [place] [address], [place] [phone] * External CT Report (11/08/2024) Anatomical Region Laterality Modality Computed Tomogra phy Provider [facility] IMG CT PROCEDURE S * (ABNORMAL) Microalbumin creatinine urine ratio (10/09/2024 10:07 AM EST) Creatinine, Urine 141.0 mg/dL LAB CHEMISTRY METHOD 10/09/2024 1:15 PM EST [facility] Microalb, Ur 267.0(H) 0.0 - 29.0 mg/L LAB CHEMISTRY METHOD 10/09/2024 1:15 PM [facility] Microalb/Crea t Ratio 189(H) <30 mg/g creat LAB CHEMISTRY METHOD 10/09/2024 1:15 PM [facility] Urine Urine specimen obtained by clean catch procedure / Unknown Non-blood Collection / Unknown 10/09/2024 10:07 AM EST 10/09/2024 10:07 AM EST Moris Machado MD LAB URINE ORDERABLES [facility] [address] [place] [address], * Lipid panel with reflex to direct LDL (10/09/2024 9:57 AM EST) Cholesterol 129 0 - 200 mg/dL LAB CHEMISTRY METHOD 10/09/2024 3:21 PM [facility] Triglycerides 129 0 - 150 mg/dL LAB CHEMISTRY METHOD 10/09/2024 3:21 PM [facility] HDL 56 >=40 mg/dL LAB CHEMISTRY METHOD 10/09/2024 3:21 PM [facility] LDL Calculated 47 0 - 100 mg/dL LAB CHEMISTRY METHOD 10/09/2024 3:21 PM [facility] VLDL Cholesterol Oliverio 25.8 mg/dL LAB CHEMISTRY METHOD 10/09/2024 3:21 PM [facility] Non HDL Chol. (LDL+VLDL) 73 <145 mg/dL LAB CHEMISTRY METHOD 10/09/2024 3:21 PM [facility] Chol/HDL Ratio 2.3 0.0 - 4.4 LAB CHEMISTRY METHOD 10/09/2024 3:21 PM [facility] Blood Venous blood specimen / Unknown Venipuncture / Unknown 10/09/2024 9:57 AM EST 10/09/2024 9:57 AM EST Moris Machado MD LAB BLOOD ORDERABLES [facility] [address] [place] [address], * (ABNORMAL) Hemoglobin A1c (10/09/2024 9:57 AM EST) [facility] Hemoglobin A1C 8.1(H) <6.5 % LAB CHEMISTRY METHOD 10/09/2024 1:42 PM EST [facility] Mean Bld Glu Estim. 186 mg/dL LAB CHEMISTRY METHOD 10/09/2024 1:42 PM EST [facility] Blood Venous blood specimen / Unknown Venipuncture / Unknown 10/09/2024 9:57 AM EST 10/09/2024 9:57 AM EST Moris Machado MD LAB BLOOD ORDERABLES [facility] [address] [place] [address], [place] [phone] * Diabetes Eye Exam (02/17/2024) [facility] Diabetes: Annual Retina Eye Exam abstracted Historical Provider MD GHAZALA CORRALES E * Depression Screening (12/08/2023) [facility] Depression Screening abstracted Historical Provider MD GHAZALA CORRALES E * Falls Risk Assessment (11/09/2023) [facility] Falls Risk Assessment abstracted Historical Provider MD GHAZALA Castillo from Last 3 Months or Most Recently Relevant to Health Maintenance Advance Directives * Full Code - Confirmed (Latest Code Status on File) Date Activated Date Inactivated Comments 11/20/2024 6:57 PM 11/23/2024 5:55 PM This code status was ascertained in the following way: Code status discussion: discussion with patient To update the patient's code status, place a code status order. Do not modify or discontinue any currently active code status orders. * Full Code - Default Date Activated Date Inactivated Comments 11/20/2024 3:53 PM 11/20/2024 6:57 PM This is or nilson is used when code status has not been discussed with the patient, or code status is otherwise unknown/unconfirmed To update the patient's code status, place a code status order. Do not modify or discontinue any currently active code status orders. Healthcare Agents on File Name Relationship Healthcare Agent [facility] p Communication Marissa Love Spouse Health Care Agent Care Teams Marking Machine Tender Relationship Specialty Start Date End Date Moris Machado MD [address] [place] [id number] PCP - General Internal Medicine 10/09/24
--- OUTSIDE RECORDS SUMMARY | 2024-12-27 11:33 | XMS_ITS | Encounter Summary ---
Author Organization [facility] Address [address] [place] [address] Care Team Providers Care Clinical Dermatologist Name Role Phone Moris Machado MD Primary Care Provider [phone] Encounter Details Date Type Department Care Team (Late st Contact Info) Description 12/20/2024 Nurse Triage Adult Medicine [address] [phone] Brooke Coronel, RN Social History Tobacco Use Types Packs/Day Years [...] as of this encounter Progress Notes * Brooke Coronel RN - 12/20/2024 4:38 PM EST Called pt via AMN and interpretor # [id number]. An appointment was made for him to be seen in the office on 01/31/25. Reason for Disposition MILD anxiety symptoms (e.g., anxiety symptoms are mild and intermittent; symptoms do not interfere with daily activities) Answer Assessment - Initial Assessment Questions 1. CONCERN: Did anything happen that prompted you to call today? Pt is on oxygen at home. His SpO2 becomes low at times and when this happens he panics and calls the ambulance. 2. ANXIETY SYMPTOMS: Can you describe how you (your loved one; patient) have been feeling? (e.g.,tense, restless, panicky, anxious, keyed up, overwhelmed, sense of impending doom). Anxiety r/t hypoxia, tense 3. ONSET: How long have you been feeling this way? (e.g., hours, days, weeks) 3-4 days. 4. SEVERITY: How would you rate the level of anxiety? (e.g., 0 - 10; or mild, moderate, severe). He rates the anxiety as 8/10 5. FUNCTIONAL IMPAIRMENT: How have these feelings affected your ability to do daily activities? Have you had more difficulty than usual doing your normal daily activities? (e.g., getting better, same, worse; self-care, school, work, interactions) He states it is negatively affecting his ability to complete his ADLs. He states his anxiety is improving. 6. HISTORY: Have you felt this way before? Have you ever been diagnosed with an anxiety problem in the past? (e.g., generalized anxiety disorder, panic attacks, PTSD). If Yes, ask: How was this problem treated? (e.g., medicines, counseling, etc.) No 7. RISK OF HARM - SUICIDAL IDEATION: Do you ever have thoughts of hurting or killing yourself? IfYes, ask: Do you have these feelings now? Do you have a plan on how you would do this? No SI 8. TREATMENT: What has been done so far to treat this anxiety? (e.g., medicines, relaxation strategies). What has helped? No treatment 9. THERAPIST: Do you have a counselor or therapist? If Yes, ask: What is their name? He has a therapist who comes to his house through [facility] two times a week 10. POTENTIAL TRIGGERS: Do you drink caffeinated beverages (e.g., coffee, hussein, teas), and how much daily? Do you drink alcohol or use any drugs? Have you started any new medicines recently? He has decaff coffee in AM. No alcohol or drug use. He has started a new medication ofev in the past 1-2 months. 11. PATIENT SUPPORT: Who is with you now? Who do you live with? Do you have family or friends who you can talk to? He lives with someone and has good support system 12. OTHER SYMPTOMS: Do you have any other symptoms? (e.g., feeling depressed, trouble concentrating, trouble sleeping, trouble breathing, palpitations or fast heartbeat, chest pain, sweating, nausea, or diarrhea) Trouble breathing. Recently diagnosed with Gastritis at ER. 13. : Is there any chance you are ? When was your last menstrual period? No. Pt is a male. Protocols used: Anxiety and Panic Attack-A-AH documented in this encounter Plan of Treatment Upcoming Encounters Date Type Department Care Team (Late st Contact Info) Description 12/28/2024 11:20 AM EST Anticoagulation - Warfarin Visit [facility] [address] [phone] 01/31/2025 9:45 AM EST Office Visit Adult Medicine [address] [phone] Juan Velasquez PA [address] [place] [address] 03/21/2025 10:00 AM EDT Office Visit Endocrinology [address] [phone] Nicole Samson PA [facility] [place] [address] 06/18/2025 9:45 AM EDT Office Visit Adult Medicine [address] [phone] Moris Machado MD [address] [place] [address] documented as of this encounter Visit Diagnoses Not on filedocumented in this encounter Additional Health Concerns Assessment Noted Time PHQ-9 Depression Total Score: 7 12/10/19 25 11:19 AM EST A fall risk assessment has been complete d for the patient 12/10/2024 11:17 AM EST documented as of this encounter Care Teams Clinical Dermatologist Relationship Specialty Start Date End Date Moris Machado MD [address] [place] [id number] PCP - General Internal Medicine 10/09/24 documented as of this encounter
--- OUTSIDE RECORDS SUMMARY | 2024-12-27 11:33 | XMS_ITS | Continuity of Care Document ---
Author Organization [facility] Address [address] [place] [address] Phone Care Team Providers Care Real Estate Intern Name Role Phone Unavailable Unavailable Unavailable Procedures [...] Diagnoses Date Provider Providers Copied on Encounter [facility], [address] [place], [place], [id number], [place] tel:[phone] [facility] No Information 1-200 5 No Information Family History Family Member Type Diagnosis Age At Onset No Information Immunizations Vaccine Date Status Comments flu (split) (3 yrs or older) administered Source: New Immunization Record Payers Payer name Insurance type Covered democrat ID Authoriza tion(s) [facility] Medicaid [id number] Social History Type Description Quantity Date Captured [...]
--- OUTSIDE RECORDS SUMMARY | 2024-12-27 11:33 | XMS_ITS | Encounter Summary ---
Author Organization [facility] Address [address] [place] [address] Care Team Providers Care Seat Nailer Name Role Phone Moris Machado MD Primary Care Provider [phone] Reason for Visit * Reason Onset Date Comments VNA Order 11/06/2024 [facility] #[id number] Encounter Details Date Type Department Care Team (Late st Contact Info) Description 11/06/2024 Telephone Adult Medicine [address] [phone] Moris Machado MD [address] [place] [phone] VNA Order ([facility]/Order #[id number]) Social History Tobacco Use Types Packs/Day Years [...] as of this encounter Progress Notes * Gracia Aldridge MA - 11/27/2024 1:43 PM EST Order signed,faxed,confirmation received * Lauren Gonzalez - 11/06/2024 9:11 AM EST Received faxed order [id number] from [employer] and placed in provider bin. Please review, sign, and fax to [phone]. documented in this encounter Plan of Treatment Upcoming Encounters Date Type Department Care Team (Late st Contact Info) Description 12/28/2024 11:20 AM EST Anticoagulation - Warfarin Visit [facility] [address] [phone] 01/31/2025 9:45 AM EST Office Visit Adult Medicine [address] [phone] Juan Velasquez PA [address] [place] [address] 03/21/2025 10:00 AM EDT Office Visit Endocrinology [address] [phone] Nicole Samson PA [address] [place] [address] 06/18/2025 9:45 AM EDT Office Visit Adult [address] [phone] Moris Machado MD [address] [place] [address] documented as of this encounter Visit Diagnoses Not on filedocumented in this encounter Additional Health Concerns Infection Onset Date Last Indicated Resolved Time Respiratory Rule-Out 11/20/2024 11/20/202411/20/ 024 12:17 PM EST COVID-19 Rule-Out 11/20/2024 11/20/2024 11/20/2024 12:17 PM EST documented as of this encounter Care Teams Seat Nailer Relationship Specialty Start Date End Date Moris Machado MD [address] [place] [phone] PCP - General Internal Medicine 10/09/24 documented as of this encounter
--- OUTSIDE RECORDS SUMMARY | 2024-12-27 11:33 | XMS_ITS | Continuity of Care Document ---
Author Organization [employer] Address [address] [place] [phone] Care Team Providers Care Art Gilder Name Role Phone HIM CCA OTHER Assessment Encounter Date Assessment Date Assessment LastModified by Organization Details LastModified Time 12/19/2024 12/19/2024 I provided real -time medical direction via phone for this encounter and was available for additional phone-based assistance as needed. I have reviewed and agree with the Assessment and Plan as documented by the Eyelet Riveter. Patient given the opportunity to ask questions. Our service contacted for an assessment of: Shortness of breaths As per above, patient was complaining of several hours of being short of breath called the service for evaluation. On usual O2 at home. No change in O2 saturations. Denies cough, fever, chills, chest pain, dyspnea on exertion. Per circus roustabout on the scene, vital signs are stable patient is afebrile. Patient with no hypoxia. No increased work of breathing. Lungs clear to auscultation. Impression and plan: Unclear etiology of patient's perceived shortness of breath. Subjective and objective data are reassuring. Discussed plan of care with patient who is agreement with this plan to continue his medications and call this service or present to a higher level care should his symptoms change. Allergies: Reviewed PCP f/u: We discussed the diagnostic uncertainty of home visits and the risk associated with this. In this case, the patient and I felt this to be an acceptable and reasonable amount of risk given the benefit of avoiding an ED visit. We discussed the need to seek care urgently/emerge ntly in the setting of any new or worsening serious symptoms, particularly fever chills [email or web address] Not available 12/19/2024 20:54:12 Plan of Treatment Reminders Order Date Submit Date Provider Last Modified By Organization Details Last Modified Time Details Appointments None record ed. Lab None record ed. Referral None record ed. Procedures None record ed. Surgeries None record ed. Imaging None record ed. Medication Orders None record ed. Patient TargetsNo targets recorded. Patient InstructionsNo instructions recorded. Reason for Referral None Reported. Medical Equipment None Reported. Allergies No known drug allergies Medications Name Sig Start Date Stop Date Status Note LastModified by Organization Details LastModified Time furosemide 40 mg tablet TAKE 1 TABLET BY MOUTH DAILY active Not Available Not Available Not Available prednisone 10 mg tablet TAKE 1 TABLET BY MOUTH DAILY active Not Available Not Available Not Available doxycycline hyclate 100 mg capsule active Not Available Not Available N ot Available albuterol sulfate 2.5 mg/3 mL (0.083 %) solution for nebulization USE 1 VIAL VIA NEBULIZER EVERY 4 HOURS NEEDED FOR WHEEZING active Not Available Not Available No t Available cefpodoxime 100 mg tablet active Not Available Not Available Not Available metoprolol succinate ER 50 mg tablet,exten ded release 24 hr TAKE 1 TABLET BY MOUTH DAILY active Not Available Not Available Not Available diltiazem CD 240 mg capsule,exte nded release 24 hr TAKE 1 CAPSULE BY MOUTH DAILY active Not Available Not Available Not Available prednisone 20 mg tablet TAKE 2 TABLETS BY MOUTH DAILY active Not Available Not Available Not Available prednisone 5 mg tablet TAKE 2 TABLETS BY MOUTH DAILY active Not Available Not Available Not Available folic acid 400 mcg tablet TAKE 1 TABLET BY MOUTH DAILY active Not Available Not Available Not Available omeprazole 40 mg capsule,geraldo yed release TAKE 1 CAPSULE BY MOUTH DAILY active Not Available Not Available Not Available tramadol 50 mg tablet TAKE 1 TABLET BY MOUTH TWICE DAILY NEEDED FOR PAIN active Not Available Not Available No t Available famotidine 20 mg tablet active Not Available Not Available Not Available OneTouch Ultra Test strips USE TO CHECK BLOOD SUGAR THREE TIMES DAILY active Not Available Not Available Not Available prednisone 2.5 mg tablet TAKE 3 TABLETS BY MOUTH DAILY FOR 30 DAYS. active Not Available Not Available No t Available pantoprazole 40 mg tablet,delay ed release TAKE 1 TABLET BY MOUTH DAILY active Not Available Not Available Not Available warfarin 5 mg tablet active Not Available Not Available No t Available metoprolol tartrate 50 mg tablet TAKE 1 TABLET BY MOUTH TWICE A DAY active Not Available Not Available No t Available omeprazole 20 mg capsule,geraldo yed release TAKE 1 CAPSULE BY MOUTH DAILY active Not Available Not Available Not Available bumetanide 1 mg tablet TAKE 1 TABLET BY MOUTH TWICE DAILY active Not Available Not Available No t Available furosemide 20 mg tablet TAKE 1 TABLET BY MOUTH DAILY active Not Available Not Available Not Available timolol maleate 0.5 % eye drops PLACE ONE DROP INTO BOTH EYES EVERY MORNING active Not Available Not Available No t Available calcitriol 0.25 mcg capsule active Not Available Not Available Not Available Ventolin HFA 90 mcg/actuatio n aerosol inhaler INHALE 2 PUFFS INTO LUNGS EVERY 4 HOURS NEEDED FOR WHEEZE OR FOR SHORTNESS OF BREATH active Not Available Not Available No t Available rosuvastatin 10 mg tablet TAKE 1 TABLET BY MOUTH AT BEDTIME active Not Available Not Available No t Available sildenafil (pulmonary hypertension ) 20 mg tablet TAKE 2 TABLETS BY MOUTH THREE TIMES DAILY 4 TO 6 HOURS APART active Not Available Not Available Not Available BD Ultra-Fine Short Pen Needle 31 gauge x 5/16 USE DIRECTED TO INJECT INSULIN ONCE NIGHTLY active Not Available Not Available No t Available Lantus Solostar U-100 Insulin 100 unit/mL (3 mL) subcutaneous pen INJECT 20 UNITS SUBCUTANEOU S EVERY EVENING active Not Available Not Available No t Available cholecalcife rol (vitamin D3) 50 mcg (2,000 unit) tablet TAKE 1 TABLET BY MOUTH DAILY active Not Available Not Available Not Available Jardiance 10 mg tablet TAKE 1 TABLET BY MOUTH 1 TIME EACH DAY IN THE MORNING active Not Available Not Available No t Available Jardiance 25 mg tablet TAKE 1 TABLET BY MOUTH DAILY active Not Available Not Available Not Available Ofev 150 mg capsule active Not Available Not Available Not Available Breo Ellipta 200 mcg-25 mcg/dose powder for inhalation INHALE 1 PUFF BY MOUTH DAILY active Not Available Not Available Not Available Entresto 49 mg-51 mg tablet TAKE 1 TABLET BY MOUTH TWICE DAILY active Not Available Not Available No t Available Humira(CF) Pen 40 mg/0.4 mL subcutaneous kit active Not Available Not Available Not Available FreeStyle Martha 3 Sensor device APPLY 1 SENSOR EVERY 14 DAYS active Not Available Not Available No t Available FreeStyle Martha 3 [place] USE DIRECTED active Not Available Not Available No t Available Vitals Date Recorded Body weight Heart rate Oxygen saturation Oxygen saturation in Arterial blood by Pulse oximetry Inhaled oxygen flow rate Oxygen saturation Oxygen saturation in Arterial blood by Pulse oximetry Inhaled oxygen flow rate Respiratory rate Body temperature Systolic blood pressure Diastolic blood pressure Provider Name and Address Organization Details Last Updated DateTime 5 81126.3 76 g 72 /min 91 % 91 % 5 L/min 80 % 80 % 5 L/min 16 /min 97.1 [degF] 118 mm[Hg] 55 mm[Hg] Not Available [facility] production 20:48:27 Social History None recorded. Functional Status None recorded. Mental Status None recorded. Family History Nothing Reported. Medical History No medical history recorded. Past Encounters Encounter ID Performer Location Encounter Start Date Encounter Closed Date Diagnosis/Indication Diagnosis SNOMED-CT Code Diagnosis ICD10 Code Diagnosis Note [id number] Nithya Blair MD [facility] - [facility] [address] [place] [address] 12/19/2024 20:48:25 12/19/2024 23:46:42 Dyspnea 693258975 R06.00 Health Concerns Section Related Observation LastModified by Organization Detai ls LastModified Time None Recorded Concern Status LastModified by Organization Details LastModified Time None Recorded Payers Encounter Date Sequence Insurance Name Policy Number Policy Coto Covered Member ID Coto Member ID Guarantor Name 12/19/2024 1 [facility] - DOS ON OR AFTER 2023 - DUAL ELIGIBLE - RETIREMENT OPTIONS AND ONE CARE (MEDICARE REPLACEMENT/ADV ANTAGE - HMO) Tommy Love [id number] Tommy Love Notes Date Note Type Note Provider Name and Address Organization Details Recorded Time 12/19/2024 text/html [facility] Nurse Triage Notes (Lindsey Rosales - RN): Reason For Request: Yara Bolden calling, pt is having a hard time breathing Patient Reports: COPD; Cough; Shortness of breath with exertion Denies: Increased work of breathing/labored ? with or without fever Unable to speak in full sentences without distress Discoloration of skin -cyanosis Needs to sleep sitting up, can? t catch breath Shortness of breath in setting of confusion Cough, fever greater than 2 days History of asthma, increased use of inhaler COVID Exposure Sputum increase Pain with inspiration Chief Complaints: Breathing problems PMH: Chronic Obstructive Pulmonary Disease (COPD), Hypertension, Diabetes Mellitus Type 2, Rheumatoid Arthritis PMH Reviewed at 12/19/2024 - 16:51 Allergies Reviewed at 12/19/2024 - 16:51 Comments: General Laborer verified the name//address and phone number. Pt st son calling for a sob. He has been having sob for one hour. He has a h/o COPD , he uses inhalers, he is o2 dependent 4-5 NLC. He does have a pulse ox but is unable to check. He went to the hospital a few days ago, they gave him morphine, due to pain issues. He was having loose stool and vomiting. The symptoms have resolved but feeling weak and sob. He has used his inhalers but it has not helped his breathing . He has not been able to eat and drink well due to the stomach virus. Education provided on the response time and the Patient was advised to monitor reported s/s and seek emergency treatment if needed .................. .................. .................. .................. .................. .................. .................. ............... Eyelet Riveter Note From Tobias Asif: Pt co episode of SOB/anxiety 2 hours prior to arrival. Pt sts feeling has since passed. Pt son feels pt is having anxiety. Pt denies CP, Dizziness, SOB at time of visit, blurred vision, jaw pain, NVD, abdominal pain, headache, cough or NC. Pt is on 5 LPM 02 via NC. Pt able to speak multiple words per sentence at high volume. Pt laughing and joking with family during visit. Pt sts no symptoms at time of exam. Pt has home nebulizer and inhalers. Baseline vitals assessed, Lungs clear bilaterally, slightly diminished no wheezing or rhonchi detectable. Good skin color and turgor. [facility] contacted and advised to monitor symptoms. Education on symptoms indicating the ER. Pt advised to follow up with PCP in regards to anxiety issues. Pt sons sts he will call PCP about it tomorrow. Son translated during visit. Pt and family pleasant and cooperative. Pt signed consent during visit and was uploaded. .................. .................. .................. .................. .................. .................. .................. ............... [facility] Consulted: Nithya Blair .................. .................. .................. .................. .................. .................. .................. ............... Disposition: Fulfilled Nithya Blair MD [address] [facility],[address], [place], [address], [place], [place] 12/19/2024 20:54:28
--- OUTSIDE RECORDS SUMMARY | 2024-12-27 11:33 | XMS_ITS | Encounter Summary ---
Author Organization [facility] Address [address] [place] [address] Care Team Providers Care Lot Worker Name Role Phone Moris Machado MD Primary Care Provider [phone] Reason for Visit * Reason Onset Date Comments faxed order 12/24/2024 [facility] order #[id number] Encounter Details Date Type Department Care Team ([facility] st Contact Info) Description 12/24/2024 Telephone Adult Medicine [address] [phone] Silvana Torres MA faxed order ([facility] order #[id number]) Social History Tobacco Use Types Packs/Day Years [...] Progress Notes * Silvana Torres MA - 12/24/2024 11:23 AM EST Received orders from [facility] order #[id number]. Please sign and fax to [phone] documented in this encounter Plan of Treatment Upcoming Encounters Date Type Department Care Team (Late st Contact Info) Description 12/28/2024 11:20 AM EST Anticoagulation - Warfarin Visit [facility] [address] [phone] 01/31/2025 9:45 AM EST Office Visit Adult Medicine [address] [phone] Juan Velasquez PA [address] [place] [address] 03/21/2025 10:00 AM EDT Office Visit Endocrinology [address] [phone] Nicole Samson PA [address] [place], [place] [address] [address] 06/18/2025 9:45 AM EDT Office Visit [address] [phone] Moris Machado MD [address] [place] [address] documented as of this encounter Visit Diagnoses Not on filedocumented in this encounter Additional Health Concerns Assessment Noted Time PHQ-9 Depression Total Score: 7 12/10/19 25 11:19 AM EST A fall risk assessment has been complete d for the patient 12/10/2024 11:17 AM EST documented as of this encounter Care Teams Lot Worker Relationship Specialty Start Date End Date Moris Machado MD [address] [place] [address] PCP - General Internal Medicine 10/09/24 documented as of this encounter
--- OUTSIDE RECORDS SUMMARY | 2024-12-27 11:33 | XMS_ITS | Encounter Summary ---
Author Organization [facility] Address [address] [place] [address] Care Team Providers Care Shuttleless Loom Weaver Name Role Phone Moris Machado MD Primary Care Provider [phone] Reason for Visit * Reason Comments home health cert Encounter Details Date Type Department Care Team (Late st Contact Info) Description 12/25/2024 Billing Patient Not Present Adult [address] [phone] Moris Machado MD [address] [place] [phone] Acute and chronic respiratory failure with hypoxia (CMS/HCC) (Primary Dx); COPD with acute exacerbation (CMS/HCC); Chronic systolic (congestive) heart failure (CMS/HCC); Pulmonary hypertension, unspecified (CMS/HCC); Pulmonary fibrosis, unspecified (CMS/HCC); Paroxysmal atrial fibrillation (CMS/HCC); Rheumatoid arthritis, involving unspecified site, unspecified whether rheumatoid factor present (CMS/HCC); Type 2 diabetes mellitus with diabetic chronic kidney disease, unspecified CKD stage, unspecified whether long-term insulin use (CMS/HCC); Hypertensive heart and chronic kidney disease with heart failure and stage 1 through stage 4 chronic kidney disease, or chronic kidney disease (CMS/HCC); Chronic kidney disease, stage 3b (CMS/HCC); Gastroesophageal reflux disease without esophagitis; Atherosclerosis of umatilla tribe coronary artery without angina pectoris, unspecified whether umatilla tribe or transplanted heart; Hyperlipidemia, unspecified hyperlipidemia type; long-term (current) use of insulin (CMS/HCC); termite helper (current) use of systemic steroids; termite helper (current) use of antithrombotics/antipl atelets; long-term (current) use of aspirin; termite helper (current) use of oral hypoglycemic drugs; Dependence on supplemental oxygen Social History Tobacco Use Types Packs/Day Years [...] as of this encounter Progress Notes * Marianna Joshi LPN - 12/25/2024 2:28 PM EST Start of Care Date: 10/18/24 Date of certification period: 10/18/24-12/16/24 Date of service = signature date 12/12/24 Hospice patient: no Home Care Agency: [facility] documented in this encounter Plan of Treatment Upcoming Encounters Date Type Department Care Team (Late st Contact Info) Description 12/28/2024 11:20 AM EST Anticoagulation - Warfarin Visit Coumadin Clinic [address] [phone] 01/31/2025 9:45 AM EST Office Visit Adult Medicine [address] [phone] Juan Velasquez PA [address] [place] [address] 03/21/2025 10:00 AM EDT Office Visit Endocrinology [address] [phone] Nicole Samson PA [address] [place] [address] 06/18/2025 9:45 AM EDT Office Visit Adult Medicine [address] [phone] Moris Machado MD [address] [place] [address] documented as of this encounter Visit Diagnoses Diagnosis Acute and chronic respiratory failure with hypoxia (CMS/HCC)- Primary COPD with acute exacerbation ([facility]) Chronic systolic (congestive) heart failure ([facility]/HCC) Pulmonary hypertension, unspecified ([facility]/HCC) Pulmonary fibrosis, unspecified ([facility]/HCC) Paroxysmal atrial fibrillation ([facility]) Atrial fibrillation Rheumatoid arthritis, involving unspecified site, unspecified whether rheumatoid factor present ([facility]) Type 2 diabetes mellitus with diabetic chronic kidney disease, unspecified CKD stage, unspecified whether termite control representative insulin use ([facility]) Hypertensive heart and chronic kidney disease with heart failure and stage 1 through stage 4 chronic kidney disease, or chronic kidney disease ([facility]) Chronic kidney disease, stage 3b ([facility]/HCC) Gastroesophageal reflux disease without esophagitis Esophageal reflux Atherosclerosis of umatilla tribe coronary artery without angina pectoris, unspecified whether umatilla tribe or transplanted heart Hyperlipidemia, unspecified hyperlipidemia type termite helper (current) use of insulin ([facility]/HCC) long-term (current) use of systemic steroids long-term (current) use of antithrombotics/antiplatelets long-term (current) use of aspirin termite helper (current) use of oral hypoglycemic drugs Dependence on supplemental oxygen documented in this encounter Additional Health Concerns Assessment Noted Time PHQ-9 Depression Total Score: 7 12/10/19 25 11:19 AM EST A fall risk assessment has been complete d for the patient 12/10/2024 11:17 AM EST documented as of this encounter Care Teams Shuttleless Loom Weaver Relationship Specialty Start Date End Date Moris Machado MD [address] [place] [address] PCP - General Internal Medicine 10/09/24 documented as of this encounter
--- OUTSIDE RECORDS SUMMARY | 2024-12-27 11:33 | XMS_ITS | Encounter Summary ---
Author Organization [facility] Address [address] [place] [address] Care Team Providers Care Coach Wirer Name Role Phone Moris Machado MD Primary Care Provider [phone] Encounter Details Date Type Department Care Team (Latest Contact Info) Description 12/10/2024 10:30 AM EST Anticoagulation - Warfarin Visit Coumadin [address] [phone] Atrial fibrillation, unspecified type (CMS/HCC) (Primary Dx); shelter (current) use of anticoagulants Social History Tobacco Use Types Packs/Day Years [...] on file documented as of this encounter Plan of Treatment Upcoming Encounters Date Type Department Care Team (Late st Contact Info) Description 12/28/2024 11:20 AM EST Anticoagulation - Warfarin Visit Coumadin [address] [phone] 01/31/2025 9:45 AM EST Office Visit Adult Medicine South - [address] [phone] Juan Velasquez PA [address] [place], [place] 03/21/2025 10:00 AM EDT Office Visit Endocrinology [address] [phone] Nicole Samson PA [address] [place] [address] 06/18/2025 9:45 AM EDT Office Visit Adult Medicine [place] - [address] [phone] Moris Machado MD [address] [place] [address] documented as of this encounter Procedures Procedure Name Priority Date/Time Associated Diagnosis Comments POC PROTIME INR BLOOD Routine 12/10/2024 Atrial fibrillation, unspecified type (CMS/HCC) intermediate frame tender (current) use of anticoagulants documented in this encounter Results * POC Protime INR Blood (12/10/2024) Lot Number INR POC 3.0 Prothrombin Time POC Exp Date Blood 12/10/2024 Historical Provider POINT OF CARE HERMES T ENTER/EDIT ORDERABLES documented in this encounter Visit Diagnoses Diagnosis Atrial fibrillation, unspecified type (CMS/HCC)- Primary shelter (current) use of anticoagulants Long-term (current) use of anticoagulants documented in this encounter Additional Health Concerns Infection Onset Date Last Indicated Resolved Time Respiratory Rule-Out 12/11/2024 12/11/2024 025 6:04 PM EST Assessment Noted Time PHQ-9 Depression Total Score: 7 12/10/19 25 11:19 AM EST A fall risk assessment has been complete d for the patient 12/10/2024 11:17 AM EST documented as of this encounter Care Teams Coach Wirer Relationship Specialty Start Date End Date Moris Machado MD [address] [place] [phone] PCP - General Internal Medicine 10/09/24 documented as of this encounter
--- OUTSIDE RECORDS SUMMARY | 2024-12-27 11:33 | XMS_ITS | Encounter Summary ---
Author Organization [facility] Address [address] [place] [phone] Care Team Providers Care Bleacher [employer] Pulp Name Role Phone Moris Machado MD Primary Care Provider [phone] Reason for Visit * Reason Onset Date Comments faxed order 12/10/2024 [facility] PT Plan of Care order #[id number] Encounter Details Date Type Department Care Team (Late st Contact Info) Description 12/10/2024 Telephone Adult Medicine [address] [phone] Silvana Torres MA faxed order ([facility] PT Plan of Care order #[id number]) Social History Tobacco Use Types Packs/Day Years [...] Progress Notes * Silvana Torres MA - 12/10/2024 9:58 AM EST Received orders from [facility] PT Plan of Care order #[id number]. Please sign and fax to [phone] documented in this encounter Plan of Treatment Upcoming Encounters Date Type Department Care Team (Late st Contact Info) Description 12/28/2024 11:20 AM EST Anticoagulation - Warfarin Visit Coumadin Clinic [address] [phone] 01/31/2025 9:45 AM EST Office Visit Adult Medicine [address] [phone] Juan Velasquez PA [address] [place] [address] 03/21/2025 10:00 AM EDT Office Visit Endocrinology [address] [phone] Nicole Samson PA [facility] [place] [address] 06/18/2025 9:45 AM EDT Office Visit [address] [phone] Moris Machado MD [address] [place] [address] documented as of this encounter Visit Diagnoses [...] documented as of this encounter Care Teams Bleacher [employer] Pul[employer] Relationship Specialty Start Date End Date Moris Machado MD [address] [place] [address] PCP - General Internal Medicine 10/09/24 documented as of this encounter
--- OUTSIDE RECORDS SUMMARY | 2024-12-27 11:33 | XMS_ITS | Encounter Summary ---
Author Organization [facility] Address [address] [place] [address] Care Team Providers Care Steam Gigger Name Role Phone Moris Machado MD Primary Care Provider [phone] Reason for Visit * Reason Onset Date Comments VNA Order 11/01/2024 [facility] #[id number] Encounter Details Date Type Department Care Team (Late st Contact Info) Description 11/01/2024 Telephone Adult Medicine [address] [phone] Moris Machado MD [address] [place] [phone] VNA Order ([facility]/Order #[id number]) Social History Tobacco Use Types Packs/Day Years [...] as of this encounter Progress Notes * Lauren Gonzalez - 11/01/2024 11:04 PM EST Received faxed order [id number] from [facility] and placed in provider bin. Please review, sign, and fax to [phone] documented in this encounter Plan of Treatment Upcoming Encounters Date Type Department Care Team (Late st Contact Info) Description 12/28/2024 11:20 AM EST Anticoagulation - Warfarin Visit Coumadin Clinic [address] [phone] 01/31/2025 9:45 AM EST Office Visit Adult Medicine [address] [phone] Juan Velasquez PA [address] [place] [address] 03/21/2025 10:00 AM EDT Office Visit Endocrinology [address] [phone] Nicole Samson PA [address] [place] [address] 06/18/2025 9:45 AM EDT Office Visit [address] [phone] Moris Machado MD [address] [place] [address] documented as of this encounter Visit Diagnoses Not on filedocumented in this encounter Additional Health Concerns Infection Onset Date Last Indicated Resolved Time Respiratory Rule-Out 11/20/2024 11/20/2024 024 12:17 PM EST COVID-19 Rule-Out 11/20/2024 11/20/2024 11/20/2024 12:17 PM EST documented as of this encounter Care Teams Steam Gigger Relationship Specialty Start Date End Date Mrois Machado MD [address] [place] [address] PCP - General Internal Medicine 10/09/24 documented as of this encounter
--- OUTSIDE RECORDS SUMMARY | 2024-12-27 11:34 | XMS_ITS | Encounter Summary ---
Author Organization [facility] Address [address] [place] [address] Care Team Providers Care Hand Compositor Name Role Phone Moris Machado MD Primary Care Provider [phone] Encounter Details Date Type Department Care Team (Latest Contact Info) Description 12/26/2024 Anticoagulation - Warfarin Visit Coumadin [address] [phone] Tiffanie Saba, KELLIE Atrial fibrillation, unspecified type (CMS/HCC) (Primary Dx); intermediate (current) use of anticoagulants Social History Tobacco [...] EST Anticoagulation - Warfarin Visit Coumadin [address] [phone] 01/31/2025 9:45 AM EST Office Visit Adult [address] [phone] Juan Velasquez PA [address] [place] [address] 03/21/2025 10:00 AM EDT Office Visit Endocrinology - [address] [phone] Nicole Samson PA [address] [place], [place] 06/18/2025 9:45 AM EDT Office Visit [address] [phone] Moris Machado MD [address] [place] [address] documented as of this encounter Procedures Procedure Name Priority Date/Time Associated Diagnosis Comments PROTHROMBIN TIME WITH INR Routine 12/26/2024 documented in this encounter Results * Prothrombin time with INR (12/26/2024) INR 2.6 Comment:[facility] Prothrombin Time POC Blood Venous blood specimen / Unknown 12/26/2024 Historical Provider LAB BLOOD ORDERAB LES documented in this encounter Visit Diagnoses Diagnosis Atrial fibrillation, unspecified type (CMS/HCC)- Primary intermediate (current) use of anticoagulants Long-term (current) use of anticoagulants documented in this encounter Additional Health Concerns Assessment Noted Time PHQ-9 Depression Total Score: 7 12/10/19 25 11:19 AM EST A fall risk assessment has been complete d for the patient 12/10/2024 11:17 AM EST documented as of this encounter Care Teams Hand Compositor Relationship Specialty Start Date End Date Moris Machado MD [address] [place] [address] PCP - General Internal Medicine 10/09/24 documented as of this encounter
--- OUTSIDE RECORDS SUMMARY | 2024-12-27 11:34 | XMS_ITS | Encounter Summary ---
Author Organization [facility] Address [address] [place] [address] Care Team Providers Care Can Filler Name Role Phone Moris Machado MD Primary Care Provider [phone] Reason for Visit * Reason Comments HOME HEALTH CERT Encounter Details Date Type Department Care Team (Late st Contact Info) Description 12/19/2024 Billing Patient Not Present Adult [facility] [address] [place] [phone] Moris Machado MD [address] [place] [id number] Acute and chronic respiratory failure with hypoxia (CMS/HCC) (Primary Dx); Chronic obstructive pulmonary disease with (acute) exacerbation (CMS/HCC); Chronic diastolic (congestive) heart failure (CMS/HCC); Pulmonary hypertension, unspecified (CMS/HCC); Pulmonary fibrosis, unspecified (CMS/HCC); Paroxysmal atrial fibrillation (CMS/HCC); Rheumatoid arthritis, involving unspecified site, unspecified whether rheumatoid factor present (CMS/HCC); Type 2 diabetes mellitus with diabetic chronic kidney disease, unspecified CKD stage, unspecified whether nursing home insulin use (CMS/HCC); Hypertensive heart and chronic kidney disease with heart failure and stage 1 through stage 4 chronic kidney disease, or unspecified chronic kidney disease (CMS/HCC); Stage 3 chronic kidney disease, unspecified whether stage 3a or 3b CKD (CMS/HCC); Gastro-esophageal reflux disease without esophagitis; Hyperlipidemia, unspecified hyperlipidemia type; moth exterminator (current) use of insulin (CMS/HCC); moth exterminator (current) use of systemic steroids; moth exterminator (current) use of antithrombotics/antipl atelets; moth exterminator (current) use of aspirin; moth exterminator (current) use of oral hypoglycemic drugs; Dependence [...] as of this encounter Progress Notes * Remedios Silverman MA - 12/19/2024 1:21 PM EST Start of Care Date: 10/18/2024 Date of certification period: 10/18/2024-12/16/2024 Date of service = signature date 12/15/2024 Hospice patient: NO Home Care Agency: [facility] [address] [facility] [address] PHONE # [phone] FAX # [phone] Recertification Code [id number] Initial Code G0180 documented in this encounter Plan of Treatment Upcoming Encounters Date Type Department Care Team (Late st Contact Info) Description 12/28/2024 11:20 AM EST Anticoagulation - Warfarin Visit Coumadin [address] [phone] 01/31/2025 9:45 AM EST Office Visit Adult Medicine [address] [phone] Juan Velasquez PA [address] [place] [address] 03/21/2025 10:00 AM EDT Office Visit Endocrinology - [address] [phone] Nicole Samson PA [address] [place] [address] 06/18/2025 9:45 AM EDT Office Visit Adult Medicine South - [address] [phone] Moris Machado MD [address] [place] [address] documented as of this encounter Visit Diagnoses Diagnosis Acute and chronic respiratory failure with hypoxia (CMS/HCC)- Primary Chronic obstructive pulmonary disease with (acute) exacerbation (CMS/HCC) Chronic diastolic (congestive) heart failure (CMS/HCC) Pulmonary hypertension, unspecified (CMS/[facility]) Pulmonary fibrosis, unspecified ([facility]) Paroxysmal atrial fibrillation ([facility]) Atrial fibrillation Rheumatoid arthritis, involving unspecified site, unspecified whether rheumatoid factor present (CMS/[facility]) Type 2 diabetes mellitus with diabetic chronic kidney disease, unspecified CKD stage, 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 whether 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 plant operator insulin use ([facility]) Hypertensive heart and chronic kidney disease with heart failure and stage 1 through stage 4 chronic kidney disease, or unspecified chronic kidney disease (CMS/HCC) Stage 3 chronic kidney disease, unspecified whether stage 3a or 3b CKD (CMS/[facility]) Gastro-esophageal reflux disease without esophagitis Hyperlipidemia, unspecified hyperlipidemia type moth exterminator (current) use of insulin (CMS/[facility]) moth exterminator (current) use of systemic steroids snf (current) use of antithrombotics/antiplatelets snf (current) use of aspirin moth exterminator (current) use of oral hypoglycemic drugs Dependence on supplemental oxygen documented in this encounter Additional Health Concerns Assessment Noted Time PHQ-9 Depression Total Score: 7 12/10/19 25 11:19 AM EST A fall risk assessment has been complete d for the patient 12/10/2024 11:17 AM EST documented as of this encounter Care Teams Can Filler Relationship Specialty Start Date End Date Moris Machado MD [address] [place] [address] PCP - General Internal Medicine 10/09/24 documented as of this encounter
--- OUTSIDE RECORDS SUMMARY | 2024-12-27 11:34 | XMS_ITS | Encounter Summary ---
Author Organization [facility] Address [address] [place] [address] Care Team Providers Care Inspector Clip On Sunglasses Name Role Phone Moris Machado MD Primary Care Provider [phone] Reason for Visit * Reason Comments Consult Diabetes Encounter Details Date Type Department Care Team (Late st Contact Info) Description 12/14/2024 9:00 AM EST Consult Endocrinology - [address] [place] [phone] Nicole Samson PA [address] [facility] [place] [address] Diabetes mellitus due to underlying condition, uncontrolled, with hyperglycemia (CMS/HCC) (Primary Dx); Stage 3b chronic kidney disease (CMS/HCC); Secondary hypertension Social History Tobacco Use Types Packs/Day Years [...] Sign Reading Time Taken Comments Blood Pressure 114/50 12/14/2024 9:14 AM EST Pulse 64 12/14/2024 9:14 AM EST Temperature 36.2 ??C (97.2 ??F) 12/14/2024 9:14 AM ES T Respiratory Rate - - Oxygen Saturation 91% 12/14/2024 9:53 AM EST Inhaled Oxygen Concentration - - Weight 83.1 kg (183 lb 3.2 oz) 12/14/2024 9:14 A M EST Height 180.3 cm (5' 11 ) 12/14/2024 9:14 AM EST Body Mass Index 25.55 12/14/2024 9:14 AM EST documented in this encounter Ordered Prescriptions Prescription Sig Dispensed Refills Start Date End Da te insulin glargine (Lantus Solostar U-100 Insulin) 100 unit/mL (3 mL) injection pen INJECT 20 UNITS SUBCUTANEOUS EVERY EVENING 15 mL 11 12/14/2024 empagliflozin (Jardiance) 25 mg tablet Take 25 mg by mouth daily. 90 tablet 3 12/14/2024 insulin glargine (Lantus Solostar U-100 Insulin) 100 unit/mL (3 mL) injection pen INJECT 20 UNITS SUBCUTANEOUS EVERY EVENING 15 mL 12/14/2024 12/14/2024 documented in this encounter Progress Notes * Jada Maddox MA - 12/14/2024 9:00 AM EST FSBS 124 - non fasting * CONNIE Contreras - 12/14/2024 9:00 AM EST CHIEF COMPLAINT: Consult and Diabetes IDENTIFIER: Tommy Love is a 79 y.o. old male. HPI: Patient presents to the office for follow-up on diabetes. First time I am seeing the patient. Previously saw Dr. Gonzalez. Past medical history of respiratory failure, interstitial lung disease, hypertension, MT, congestive heart failure, A-fib, pulmonary hypertension, type 2 diabetes, chronic kidney disease, hyperlipidemia. Diabetes: Hemoglobin A1c Lab Results Component Value Date HGBA1C 8.1 (H) 10/09/2024 Patient here with his . He tells me he developed diabetes about a year and a half ago due to chronic steroid use needed to treat chronic COPD. Blood sugar in the office 124. He was using CGM martha 3 but has not received sensors. States at 1 point they gave him martha 2 sensors but he does not have a Martha 2 reader States sugars are usually between 79 and 180. He denies any recent hypoglycemia. States when he wasfirst diagnosed he did have sugars in the 60s. 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 On Entresto, metoprolol Chronic kidney disease stage III: Follows up with nephrology Dr. Quinonez. Kidney functions have beenstable Wt Readings from Last 3 Encounters: 12/14/24 83.1 kg (183 lb 3.2 oz) 12/11/24 79.8 kg (176 lb) 12/10/24 82.6 kg (182 lb) ROS: GENERAL: No malaise, significant weight loss or fever HEENT: No changes in hearing or vision, nose bleeds or other nasal problems RESPIRATORY: No cough, wheezing or shortness of breath CARDIOVASCULAR: No chest pain, leg swelling or palpitations GI: No abdominal discomfort, blood in stools or black stools ENDOCRINE: See HPI MUSCULOSKELETAL: No joint pain or swelling, back pain, or muscle pain. NEURO: No persistent headache, syncope, seizures, weakness or numbness PAST MEDICAL HISTORY: Patient Active Problem List Diagnosis Date Noted Atrial fibrillation ([facility]) 10/26/2024 MCC (current) use of anticoagulants 10/26/2024 Diabetes mellitus due to underlying condition, uncontrolled, with hyperglycemia ([facility]) 11/12/2023 Secondary diabetes mellitus ([facility]) 11/12/2023 (HFpEF) heart failure with preserved ejection fraction ([facility]) 08/11/2023 Chronic hypoxemic respiratory failure ([facility]) 08/11/2023 SOB (shortness of breath) 08/11/2023 SVT (supraventricular tachycardia) ([facility]) 08/11/2023 Renal osteodystrophy 08/04/2023 Stage 3b chronic kidney disease ([facility]) 08/04/2023 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[facility]) 08/04/2023 Heart failure ([facility]) 06/26/2023 Pulmonary HTN ([facility]) 05/19/2023 Influenza 03/05/2022 Lymphadenopathy 03/05/2022 ILD (interstitial lung disease) ([facility]) 11/30/2021 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 Old MT (myocardial infarction) 06/12/2015 Glaucoma 06/05/2012 A-fib ([facility]) 03/16/2012 CAD (coronary artery disease) 03/16/2012 HLD (hyperlipidemia) 03/16/2012 HTN (hypertension) 03/16/2012 Seropositive rheumatoid arthritis ([facility]) 03/16/2012 SOCIAL HISTORY: Social History Tobacco Use [...] Outpatient Medications Marked as Taking for the 12/14/24 encounter (Consult) with CONNIE Contreras Medication Sig Dispense Refill adalimumab (Humira,CF, Pen) [...] mg by mouth daily. 90 tablet 3 Entresto 49-51 mg per tablet TAKE 1 TABLET BY MOUTH TWICE DAILY 180 tablet 1 folic acid (FOLVITE) 400 mcg tablet Take 1 tablet (0.4 mg total) by mouth 1 (one) time each day. insulin glargine (Lantus Solostar U-100 Insulin) 100 unit/mL (3 mL) injection pen INJECT 20 UNITS SUBCUTANEOUS EVERY EVENING 15 mL 11 ipratropium-albuteroL (Combivent Respimat) 20-100 mcg/actuation inhaler Inhale 1 Puff into the lungs every 6 hours as needed (wheezing) for up to 30 days. metoprolol tartrate (LOPRESSOR) 50 mg tablet Take [...] 1 predniSONE (DELTASONE) 10 mg tablet Take 1 [...] NOT CHANGE DIETARY HABITS 90 tablet 1 [DISCONTINUED] empagliflozin (Jardiance) 25 mg tablet Take 25 mg by mouth daily. [DISCONTINUED] insulin glargine (Lantus Solostar U-100 Insulin) 100 unit/mL (3 mL) injection pen INJECT 20 UNITS SUBCUTANEOUS EVERY EVENING 15 mL 0 [DISCONTINUED] Lantus Solostar U-100 Insulin 100 unit/mL (3 mL) injection pen INJECT 20 UNITS SUBCUTANEOUS EVERY EVENING 15 mL 0 ALLERGIES: Patient has no known allergies. PHYSICAL EXAM: Blood pressure 114/50, pulse 64, temperature 36.2 ??C (97.2 ??F), temperature source Temporal, height 1.803 m (71 ), weight 83.1 kg (183 lb 3.2 oz), SpO2 91%. Body mass index is 25.55 kg/m??. BMI is greater than 25.0 (above the normal range) - see Plan APPEARANCE: Alert and in no acute distress HEART: RRR with normal S1 and S2, no murmurs, no gallops, NECK: no thyroid enlargement, nodules or masses felt. LUNG: clear to auscultation NEURO: Awake, alert and oriented x 3 LABS: Lab Results Component Value Date HGBA1C 8.1 (H) 10/09/2024 CHOL 129 10/09/2024 HDL 56 10/09/2024 TRIG 129 10/09/2024 Lab Results Component Value Date GLUCOSE 124 12/14/2024 No results found for: TSH IMAGING: IMPRESSION: 1. Diabetes mellitus due to underlying condition, uncontrolled, with hyperglycemia ([facility]) 2. Stage 3b chronic kidney disease ([facility]) 3. Secondary hypertension PLAN: Patient presents to the office for follow-up on diabetes 1. Diabetes: Last A1c reviewed improved. Fingerstick readings appear to be at goal. He will medications Martha 3+ sensor provided Will order through parachute Continue with lifestyle modification Of note patient's oxygen was low at the beginning of the visit 86. He does use oxygen and had ran out of oxygen during the visit he did change to this and oxygen did go up to 91. Patient in no respiratory distress 2. Chronic kidney disease: Labs reviewed. Stable he will follow-up with nephrology 3. Hypertension: Blood pressure at goal continue with current blood pressure lowering medication All questions and concerns were addressed. Patient understands and agrees with this treatment plan.Patient was reminded to call or return to the office if any new or existing problems arise This document was made using voice recognition software. It may contain some errors in grammar or syntax Medication and lab orders: Diabetes mellitus due to underlying condition, uncontrolled, with hyperglycemia (CMS/HCC) (Primary) - POC glucose manually resulted - Hemoglobin A1c; Future Stage 3b chronic kidney disease (CMS/HCC) Secondary hypertension (Chronic) Other orders - empagliflozin (Jardiance) 25 mg tablet; Take 25 mg by mouth daily. Dispense: 90 tablet; Refill: 3 - insulin glargine (Lantus Solostar U-100 Insulin) 100 unit/mL (3 mL) injection pen; INJECT 20 UNITS SUBCUTANEOUS EVERY EVENING Dispense: 15 mL; Refill: 11 CONNIE Contreras on 12/14/2024 at 10:18 AM EST documented in this encounter Plan of Treatment Upcoming Encounters Date Type Department Care Team (Late st Contact Info) Description 12/28/2024 11:20 AM EST Anticoagulation - Warfarin Visit Coumadin Clinic [address] [phone] 01/31/2025 9:45 AM EST Office Visit Adult Medicine [address] [phone] Juan Velasquez PA [address] [place] [address] 03/21/2025 10:00 AM EDT Office Visit Endocrinology - [address] [phone] Nicole Samson PA [address] [place] [address] 06/18/2025 9:45 AM EDT Office Visit Adult Medicine [address] [phone] Moris Machado MD [address] [place] [address] Scheduled Orders Name Type Priority Associated Diagnoses Orde r Schedule Hemoglobin A1c Lab Routine Diabetes mellitus due to underlying condition, uncontrolled, with hyperglycemia ([facility]) 1 Occurrences starting 12/14/2024 until 12/14/2025 documented as of this encounter Procedures Procedure Name Priority Date/Time Associated Diagnosis Comments POC GLUCOSE Routine 12/14/2024 9:21 AM EST Diabetes mellitus due to underlying condition, uncontrolled, with hyperglycemia ([facility]) documented in this encounter Results * POC glucose manually resulted (12/14/2024 9:21 AM EST) Glucose POC 124 mg/dL Comment:non fasting Blood Capillary blood specimen / Unknown 12/14/2024 9:21 AM EST Nicole ROSALES POINT OF CARE TEST ENTER/EDIT ORDERABLES documented in this encounter Visit Diagnoses Diagnosis Diabetes mellitus due to underlying condition, uncontrolled, with hyperglycemia ([facility])- Primary Stage 3b chronic kidney disease ([facility]) Secondary hypertension Other secondary hypertension, unspecified documented in this encounter Discontinued Medications Medication Sig Discontinue Reason Start Date End Da te empagliflozin (Jardiance) 25 mg tablet Take 25 mg by mouth daily. Reorder 08/22/2024 12/14/2024 Lantus Solostar U-100 Insulin 100 unit/mL (3 mL) injection pen INJECT 20 UNITS SUBCUTANEOUS EVERY EVENING Reorder 11/09/2024 12/14/2024 insulin glargine (Lantus Solostar U-100 Insulin) 100 unit/mL (3 mL) injection pen INJECT 20 UNITS SUBCUTANEOUS EVERY EVENING 12/14/2024 12/14/2024 documented as of this encounter Historical Medications * This list may reflect changes made after this encounter. Medication Sig Dispensed Refills Start Date End Date Oxygen Therapy via Nasal Cannula (O2) gas Inhale 4-5 L/min by mouth continuously. via nasal canula added in this encounter Additional Health Concerns Assessment Noted Time PHQ-9 Depression Total Score: 7 12/10/19 25 11:19 AM EST A fall risk assessment has been complete d for the patient 12/10/2024 11:17 AM EST documented as of this encounter Care Teams Inspector Clip On Sunglasses Relationship Specialty Start Date End Date Moris Machado MD [address] [place] [id number] PCP - General Internal Medicine 10/09/24 documented as of this encounter
--- OUTSIDE RECORDS SUMMARY | 2024-12-27 11:34 | XMS_ITS | Data Portability ---
Author Organization [facility] Address [address] [place] [id number] Care Team Providers Care Gasoline Power Shovel Operator Name Role Phone HIM CCA OTHER Assessment Encounter Date Assessment Date Assessment LastModified by Organization Details LastModified Time 12/19/2024 12/19/2024 I provided real -time medical direction via phone for this encounter and was available for additional phone-based assistance as needed. I have reviewed and agree with the Assessment and Plan as documented by the Truck Caterer. Patient given the opportunity to ask questions. Our service contacted for an assessment of: Shortness of breaths As per above, patient was complaining of several hours of being short of breath called the service for evaluation. On usual O2 at home. No change in O2 saturations. Denies cough, fever, chills, chest pain, dyspnea on exertion. Per aquarium tank attendant on the scene, vital signs are stable [...] Ultra-Fine Short Pen Needle 31 gauge x /16 USE DIRECTED TO INJECT INSULIN ONCE NIGHTLY [...] Available No t Available FreeStyle Martha 3 Mcgregor USE DIRECTED active Not Available Not Available [...] Address Organization Details Last Updated DateTime 5 03232.3 76 g 72 /min 91 % 91 [...] SNOMED-CT Code Diagnosis ICD10 Code Diagnosis Note [id number] Nithya Blair MD [address] - [facility] [address] [place] [address] 12/19/2024 20:48:25 12/19/2024 23:46:42 Dyspnea [id number] R06.00 Health Concerns Section Related Observation LastModified by Organization Detai ls LastModified Time None Recorded Concern Status LastModified by Organization Details LastModified Time None Recorded Advance Directives Directive None Recorded Payers Encounter Date Sequence Insurance Name Policy Number Policy Coto Covered Member ID Coto Member ID Guarantor Name 12/19/2024 1 [facility] - DOS ON OR AFTER 2023 - DUAL ELIGIBLE - SNF OPTIONS AND ONE CARE (MEDICARE REPLACEMENT/ADV ANTAGE - HMO) Tommy Love [id number] Tommy Love Notes Date Note Type Note [...] Allergies Reviewed at 12/19/2024 - 16:51 Comments: Project Management Consultant verified the name//address and phone number. Pt [...] .................. .................. .................. .................. .................. .................. ............... Truck Caterer Note From Tobias Asif: Pt co episode [...] rhonchi detectable. Good skin color and turgor. [facility] contacted and advised to monitor symptoms. Education on symptoms indicating the ER. Pt advised to follow up with PCP in regards to anxiety issues. Pt sons sts he will call PCP about it tomorrow. Son translated during visit. Pt and family pleasant and cooperative. Pt signed consent during visit and was uploaded. .................. .................. .................. .................. .................. .................. .................. ............... [facility] Consulted: Nithya Blair .................. .................. .................. .................. .................. .................. .................. ............... Disposition: Fulfilled Nithya Blair MD [address] [facility],[address], [place], [address], [place] [employer], [place] 12/19/2024 20:54:28
--- OUTSIDE RECORDS SUMMARY | 2024-12-27 11:34 | XMS_ITS | Clinical Summary ---
Author Organization [facility] Address [address] [facility] [address] [place] [address] Phone Care Team Providers Care College Admissions Counselor Name Role Phone Moris Machado MD Primary Care Provider [phone] Allergies No known active allergies Medications warfarin (COUMADIN) 2.5 MG tablet 5 mg 3 Active traMADol (ULTRAM) 50 MG tablet Take 50 mg by mouth 3 Active timolol (TIMOPTIC) 0.5 % ophthalmic solution INSTILL 1 DROP IN BOTH EYES IN THE MORNING 3 Active rosuvastatin (CRESTOR) 10 MG tablet Take 10 mg by mouth 1 (one) time each day 3 Active predniSONE 5 MG tablet TAKE 1 1/2 TABS (7.5 MG) ORALLY DAILY 3 Active omeprazole (PriLOSEC) [address] capsule Take 40 mg by mouth 1 (one) time each day 3 Active metoprolol tartrate (LOPRESSOR) 50 MG tablet Take 50 mg by mouth in the morning and 50 mg in the evening. 3 Active Humira Pen 40 MG/0.4ML Pen-injector Kit 3 Active bumetanide (BUMEX) 1 MG tablet Take 1 mg by mouth in the morning and 1 mg in the evening. Active Ventolin HFA 108 (90 Base) MCG/ACT inhaler INHALE 2 PUFFS BY MOUTH EVERY 4 HOURS NEEDED FOR WHEEZE OR FOR SHORTNESS OF BREATH Active Jardiance 10 MG tablet TAKE 1 TABLET BY MOUTH 1 TIME EACH DAY IN THE MORNING 90 tablet 3 4 Active aspirin (ST IGELSIA) 81 MG EC tablet Take 81 mg by mouth 1 (one) time each day Active cholecalciferol (VITAMIN D-3 SUPER STRENGTH) 50 MCG (2000 UT) tablet Take 2,000 Units by mouth in the morning. 4 Active dilTIAZem CD (CARDIZEM CD) 240 MG 24 hr capsule Take 240 mg by mouth 1 (one) time each day 4 Active sacubitril-vals jelena (Entresto) 49-51 MG per tablet Take 1 tablet by mouth in the morning and 1 tablet in the evening. Active folic acid (FOLVITE) 400 MCG tablet Take 400 mcg by mouth 1 (one) time each day Active nitroglycerin (NITRODUR) 0.4 MG/HR Place 1 patch on the skin 1 (one) time each day Active omeprazole OTC (PriLOSEC OTC) 20 MG EC tablet Take 20 mg by mouth 1 (one) time each day Do not crush, chew, or split. Active pantoprazole (PROTONIX) 40 MG EC tablet Take 40 mg by mouth 1 (one) time each day before breakfast Do not crush, chew, or split. 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 Per the hospital notes, his echocardiogram showed normal EF and diastolic function with normal right systolic function and moderate pulmonary hypertension. He was given IV diuresis and symptoms improved. He was discharged on 20 mg of oral he continues on Lasix 20 mg orally daily. He does follow with pulmonology given his history of interstitial lung disease and COPD. 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 His last LDL was noted to be 46. He will continue his current dose of rosuvastatin. Seropositive rheumatoid arthritis 03/16/2012 08/04/2023 Overview (08/04/2023): RF, JENNIFER positive. Onset ~ 2004 On methotrexate (~2007) and leflunomide added (~03/2010?); Leflunomide held in the spring because of leukopenia. Restarted at a low dose but synovitis continued. Leflunomide stopped March 2017. Humira added to methotrexate, May 2017 Last Assessment & Plan: Keep same treatment Lab due in May and July Return in July Coronary arteriosclerosis 03/16/2012 Overview (02/20/2024): Last Assessment & Plan: The patient has a history of coronary artery disease status post inferior [place] in 2003. He continues on cardioprotective medical [...] nitroglycerin, or if they were to faint. Encounters Date Type Department Care Team Description 11/19/2024 1:45 PM EST Office Visit [facility] [address] [place] [address] Davidson Quinonez MD Stage 3b chronic kidney disease (HCC) (Primary Dx); Renal osteodystrophy; 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HCC) 10/04/2024 [facility]ill [facility] [address] [place] [address] Davidson Quinonez MD from Last 3 Months Immunizations Name Administration Dates Next Due Influenza Split High Dose Pr eservative Free IM 08/09/2022,08/05/2020,10/10/2019,08/20,07/28/2018,09/21/2017,08/22/2017 ,07/27/2016 Influenza, Unspecified 09/28/2021,2015,08/07/2015,08/23,08/10/2013,08/28/2012 Moderna SARS-COV-2 07/30/2021,02/07/2021, 021 Pneumococcal Conjugate 13-Valent 04/08/2015 Pneumococcal Polysaccharide 10/06/2021, 7 Shingrix 07/28/2018 Tetanus Toxoid, Unspecified 11/16/2007 Zoster 05/12/2019 Family History Relation Status Comments Father Mother Social History Tobacco Use Types Packs/Day Years Used Date Smoking Tobacco: Never Smokeless Tobacco: Never Alcohol Use Standard Drinks/Week Comments Never 0 (1 standard drink = 0.6 oz pur e alcohol) Sex and Gender Information Value Date Recorded Sex Assigned at Not on file Legal Sex Male 10:41 AM EDT Gender Identity Not on file Sexual Orientation Not on file Last Filed Vital Signs Vital Sign Reading Time Taken Comments Blood Pressure 128/64 11/19/2024 1:43 PM EST Pulse 99 02/20/2024 2:20 PM EDT Temperature - - Respiratory Rate - - Oxygen Saturation 88% 02/20/2024 2:20 PM EDT Inhaled Oxygen Concentration - - Weight 85.7 kg (189 lb) 11/19/2024 1:43 PM EST Height - - Body Mass Index - - Plan of Treatment Upcoming Encounters Date Type Department Care Team (Late st Contact Info) Description 08/26/2025 2:00 PM EDT Office Visit [facility] [address] [place] [address] Davidson Quinonez MD [address] [facility] [address] [place] [address] Health Maintenance Due Date Last Done Comments Diabetes: Ophthalmology Exam 08/04/2023 Diabetes: Pedal Pulse Checked 08/04/2023 Diabetes: Sensory Foot Exam 08/04/2023 Diabetes: Visual Foot Exam 08/04/2023 Influenza Vaccine (#1) 2024 , 09/28/2021, 08/05/2020, Additional history exists Diabetes: Hemoglobin A1C 01/09/2025 10/09/2024, 12/30 Pneumococcal Vaccine: 65+ Years Completed 10/06/2021, 04/08/2015, 11/16/2007 Hepatitis B Vaccine Aged Out No longe r eligible based on patient's age to complete this topic Insurance [facility] ([id number]) [facility] ([id number]) Care Teams College Admissions Counselor Relationship Specialty Start Date End Date Moris Machado MD [address] [place] [id number] PCP - General Internal Medicine 04/26/23
--- OUTSIDE RECORDS SUMMARY | 2024-12-27 11:34 | XMS_ITS | Encounter Summary ---
Author Organization [facility] Address [address] [place] [address] Care Team Providers Care Larriman Name Role Phone Moris Machado MD Primary Care Provider [phone] Encounter Details Date Type Department Care Team (Latest Contact Info) Description 11/27/2024 10:10 AM EST Anticoagulation - Warfarin Visit Coumadin [address] [phone] Atrial fibrillation, unspecified type (CMS/HCC) (Primary Dx); group home (current) use of anticoagulants Social History Tobacco [...] AM EST Anticoagulation - Warfarin Visit Coumadin [address] [phone] 01/31/2025 9:45 AM EST [facility] [address] [phone] Juan Velasquez PA [address] [place] [address] 03/21/2025 10:00 AM EDT Office Visit Endocrinology [address] [phone] Nicole Samson PA [address] [place] [address] 06/18/2025 9:45 AM EDT [facility] [address] [phone] Moris Machado MD [address] [place] [address] documented as of this encounter Procedures Procedure Name Priority Date/Time Associated Diagnosis Comments POC PROTIME INR BLOOD Routine 11/27/2024 Atrial fibrillation, unspecified type (CMS/HCC) 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 documented in this encounter Results * POC Protime INR Blood (11/27/2024) Lot Number INR POC 2.6 Prothrombin Time POC Exp Date Blood 11/27/2024 Moris Machado MD POINT OF CARE TEST E NTER/EDIT ORDERABLES documented in this encounter Visit Diagnoses Diagnosis Atrial fibrillation, unspecified type (CMS/HCC)- Primary group home (current) use of anticoagulants Long-term (current) use of anticoagulants documented in this encounter Care Teams Larriman Relationship Specialty Start Date End Date Moris Machado MD [address] [place] [address] PCP - General Internal Medicine 10/09/24 documented as of this encounter
--- OUTSIDE RECORDS SUMMARY | 2024-12-27 11:34 | XMS_ITS | Encounter Summary ---
Author Organization [facility] Address [address] [place] [address] Care Team Providers Care Assistant Toddler Teacher Name Role Phone Moris Machado MD Primary Care Provider [phone] Reason for Visit * Reason Comments Abdominal Pain Abdominal pain x4 da ys URQ Encounter Details Date Type Department Care Team (Late st Contact Info) Description 12/18/2024 7:18 AM EST - 12/18/2024 11:27 AM EST [facility] Emergency [address] [place] [id number] EmanuelKatharina Girma Shashank, DO [address] [place] [address] Gastritis without bleeding, unspecified chronicity, unspecified gastritis type (Primary Dx) Discharge Disposition: Home or Self Care Social History Tobacco Use Types Packs/Day Years [...] Mass Index 24.83 12/18/2024 7:40 AM EST documented in this encounter Discharge Instructions * Discharge Instructions* Katharina Castellanos DO - 12/18/2024 10:[address] imaging today did not show any signs of abnormality in your abdomen. Continue take your omeprazole that was prescribed to you. You may continue to take Pepcid along with omeprazole as well. I suspect you have inflammation in your stomach which is causing your pain and diarrhea. Please follow your primary care doctor to make sure that your abdominal pain is improving. documented in this encounter Medications at Time of Discharge Medication Sig Dispensed Refills Start Date End Date adalimumab (Humira,CF, Pen) 40 mg/0.4 mL pen Inject 0.4 mL (40 mg total) under the skin every 14 (fourteen) days. 10/23/2021 albuterol 2.5 mg /3 mL (0.083 %) nebulizer solution USE 1 VIAL VIA NEBULIZER EVERY 4 HOURS NEEDED FOR WHEEZING 360 mL 2 10/15/2024 10/15/2025 albuterol HFA (Ventolin HFA) 90 mcg/actuation inhaler Inhale 2 puffs by mouth every 4 (four) hours if needed for wheezing or shortness of breath. 06/04/2024 Breo Ellipta 200-25 mcg/dose inhaler Inhale 1 puff by mouth 1 (one) time each day. 09/19/2024 bumetanide (BUMEX) 1 mg tablet Take 1 tablet (1 mg total) by mouth 2 (two) times a day. calcitrioL (ROCALTROL) 0.25 mcg capsule Take 1 capsule (0.25 mcg total) by mouth every other day. 02/27/2024 cholecalciferol (VITAMIN D-3) 50 mcg (2,000 unit) tablet Take 1 tablet (2,000 Units total) by mouth 1 (one) time each day. 06/11/2024 dilTIAZem CD (CARDIZEM CD) 240 mg 24 hr capsule Take 1 capsule (240 mg total) by mouth 1 (one) time each day. 07/17/2024 empagliflozin (Jardiance) 25 mg tablet Take 25 mg by mouth daily. 90 tablet 3 12/14/2024 Entresto 49-51 mg per tablet TAKE 1 TABLET BY MOUTH TWICE DAILY 180 tablet 1 10/08/2024 famotidine (PEPCID) 20 mg tablet Take 1 tablet (20 mg total) by mouth 2 (two) times a day for 15 days. 30 tablet 12/18/2024 01/02/2025 folic acid (FOLVITE) 400 mcg tablet Take 1 tablet (0.4 mg total) by mouth 1 (one) time each day. 08/10/2024 insulin glargine (Lantus Solostar U-100 Insulin) 100 unit/mL (3 mL) injection pen INJECT 20 UNITS SUBCUTANEOUS EVERY EVENING 15 mL 11 12/14/2024 ipratropium-albutero L (Combivent Respimat) 20-100 mcg/actuation inhaler Inhale 1 Puff into the lungs every 6 hours as needed (wheezing) for up to 30 days. 05/26/2023 metoprolol tartrate (LOPRESSOR) 50 mg tablet Take 1 tablet (50 mg total) by mouth 2 (two) times a day. 2024 nitroglycerin (NITROSTAT) 0.[address] 1 tablet (0.4 mg total) under the tongue every 5 (five) minutes if needed for chest pain. 04/26/2023 Ofev 150 mg capsule Take 1 capsule (150 mg total) by mouth 2 (two) times a day. 11/29/2024 omeprazole (PriLOSEC) [address] capsule TAKE 1 CAPSULE BY MOUTH DAILY 90 capsule 1 11/09/2024 Oxygen Therapy via Nasal Cannula (O2) gas Inhale 4-5 L/min by mouth continuously. via nasal canula predniSONE (DELTASONE) 10 mg tablet Take 1 tablet (10 mg total) by mouth 1 (one) time each day. 06/29/2024 rosuvastatin (CRESTOR) 10 mg tablet TAKE 1 TABLET BY MOUTH AT BEDTIME 90 tablet 1 10/08/2024 sildenafil (REVATIO) 20 mg tablet Take 1 tablet (20 mg total) by mouth 3 (three) times a day. 04/27/2024 timolol (TIMOPTIC) 0.5 % ophthalmic solution INSTILL 1 DROP IN BOTH EYES IN THE MORNING 06/13/2023 traMADoL (ULTRAM) 50 mg tablet Take 1 tablet (50 mg total) by mouth 2 (two) times a day if needed for severe pain. for pain Max Daily Amount: 100 mg 56 tablet 10/30/2024 warfarin (COUMADIN) 2.5 mg tablet Take 1 tablet (2.5 mg total) by mouth every other day. Evening dose warfarin (COUMADIN) 5 mg tablet TAKE 1 TABLET BY MOUTH DAILY. MAY CAUSE HEAVY BLEEDING. TAKE AT THE SAME TIME EVERY_DAY. DO NOT CHANGE DIETARY HABITS 90 tablet 1 12/04/2024 documented as of this encounter Ordered Prescriptions Prescription Sig Dispensed Refills Start Date End Da te famotidine (PEPCID) 20 mg tablet Take 1 tablet (20 mg total) by mouth 2 (two) times a day for 15 days. 30 tablet 12/18/2024 01/02/2025 documented in this encounter Discharge Disposition Disposition Code Departure Means Destination Comment s Home or Self Care documented in this encounter Progress Notes * Geri Vincent RN - 12/18/2024 7:24 AM EST Patient BIBA for RUQ pain x4 days from home. + N/V/D. Denies fevers at home. Denies SOB and chest pain. * Katharina Castellanos DO - 12/18/2024 7:17 AM EST Emergency Medicine Note Patient Name: Tommy Love Initial Evaluation: 12/18/2024 : 1945 Patient's PCP: Moris Machado MD Emergency Physician: Katharina Castellanos DO History of Present Illness Chief Complaint: Chief Complaint Patient presents with Abdominal Pain Abdominal pain x4 days URQ HPI: This is a 79-year-old male with history of interstitial lung disease, hypertension, CAD, diabetes, hyperlipidemia, A-fib on Coumadin presented hospital today for evaluation of abdominal pain. Patient is complain of right side abdominal pain. This been going for 4 days. Patient is complaining some vomiting and diarrhea as well. Denies any fever. He denies any recent antibiotic use. No history abdominal surgeries in the past. ROS: I have performed a ROS with the pertinent positives and negatives documented in the history ofpresent illness. Previous History Past Medical History: Diagnosis Date A-fib ([facility]) 03/16/2012 DX:A-fib ([facility]) Asthma DX:Asthma CAD (coronary artery disease) 03/16/2012 DX:CAD (coronary artery disease) Glaucoma 06/05/2012 DX:Glaucoma High cholesterol 03/16/2012 DX:High cholesterol Historical Medical DX 04/20/2012 DX:PPD negative HTN (hypertension) 03/16/2012 DX:HTN (hypertension) ILD (interstitial lung disease) ([facility]) 11/30/2021 DX:ILD (interstitial lung disease) ([facility]) RA (rheumatoid arthritis) ([facility]) 03/16/2012 DX:RA (rheumatoid arthritis) ([facility]) 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 Past Surgical History: Procedure Laterality Date COLONOSCOPY 10/17/19 [facility] PROCEDURE: HISTORICAL COLONOSCOPY; COMMENT: sigmoid adenoma and tics COLONOSCOPY 05/02/14 PROCEDURE: MO COLONOSCOPY STOMA W/RMVL BART POLYP/OTH LES SNARE; COMMENT: adenoma and tics; repeat in 5 yrs Social History Tobacco Use Smoking status: Former Current packs/day: 0.00 Average packs/day: 1 pack/day for 11.0 years (11.0 ttl pk-yrs) Types: Cigarettes Start date: 11/28/1991 Quit date: 11/28/2002 Years since quittin.0 Smokeless tobacco: Never Substance Use Topics Alcohol use: No Drug use: No Family History Problem Relation Name Age of Onset Coronary artery disease Neg Hx has No Known Allergies. No current facility-administered medications on file prior to encounter. Current Outpatient Medications on File Prior to Encounter Medication Sig Dispense Refill adalimumab (Humira,CF, Pen) [...] CAPSULE BY MOUTH DAILY 90 capsule 1 Oxygen Therapy via Nasal Cannula (O2) gas Inhale 4-5 L/min by mouth continuously. via nasal canula predniSONE (DELTASONE) 10 mg tablet Take 1 [...] UNITS SUBCUTANEOUS EVERY EVENING 15 mL 0 Physical Exam ED Triage Vitals Temp Heart Rate Resp BP 12/18/24 0751 12/18/24 0729 12/18/24 0712/18/24 07 36.8 ??C (98.3 ??F) 90 18 104/54 SpO2 Temp Source Heart Rate Source Patient Position 12/18/24 0729 12/18/24 075 -- -- (!) 83 % Oral BP Location FiO2 (%) -- -- General: Pleasant, no distress, interacting appropriately Head: Normacephalic, atraumatic ENT: oral mucosa moist, neck supple, no tracheal deviation Cardiovascular: regular rate, regular rhythm, no murmurs, rubbing, gallops Respiratory: CTAB, no wheeze, rales, rhonchi Gastrointestinal: Soft, non distended, right side abdominal pain on palpation Neurological: Awake and alert, no facial droop noted Skin: Warm and dry Psychiatric: Appropriate mood and thoughts Results Labs Reviewed COMPREHENSIVE METABOLIC PANEL - Abnormal Result Value Sodium 140 Potassium 3.5 Chloride 106 CO2 24 Anion Gap 10 Glucose 96 BUN 42 (*) Creatinine 2.19 (*) eGFR 30 (*) BUN/Creatinine Ratio 19.2 Calcium 6.4 (*) AST (SGOT) 34 ALT (SGPT) 28 Alkaline Phosphatase 43 Total Protein 6.5 Albumin 3.1 (*) Total Bilirubin 0.5 CBC WITH AUTO DIFFERENTIAL - Abnormal WBC 6.9 RBC 4.80 Hemoglobin 12.7 (*) Hematocrit 41.1 (*) MCV 86.0 MCH 26.6 (*) MCHC 30.9 (*) RDW 22.4 (*) Platelets 172 MPV 10.7 NRBC 0.0 NRBC Absolute 0.00 Neutrophils Relative 52.9 Lymphocytes Relative 34.9 Monocytes Relative 10.3 Eosinophils Relative 1.3 Basophils Relative 0.3 Immature Granulocytes Relative 0.3 Neutrophils Absolute 3.65 Lymphocytes Absolute 2.41 Monocytes Absolute 0.71 Eosinophils Absolute 0.09 Basophils Absolute 0.02 Immature Granulocytes Absolute 0.02 PROTHROMBIN TIME WITH INR - Abnormal Protime 23.9 (*) INR 1.9 LIPASE - Normal Lipase 57 CBC AND DIFFERENTIAL Narrative: The following orders were created for panel order CBC and differential. Procedure Abnormality Status --------- ------ CBC auto differential[[id number]] Abnormal Final result Please view results for these tests on the individual orders. Abnormal Labs Reviewed COMPREHENSIVE METABOLIC PANEL - Abnormal; Notable for the following components: Result Value BUN 42 (*) Creatinine 2.19 (*) eGFR 30 (*) Calcium 6.4 (*) Albumin 3.1 (*) All other components within normal limits CBC WITH AUTO DIFFERENTIAL - Abnormal; Notable for the following components: Hemoglobin 12.7 (*) Hematocrit 41.1 (*) MCH 26.6 (*) MCHC 30.9 (*) RDW 22.4 (*) All other components within normal limits PROTHROMBIN TIME WITH INR - Abnormal; Notable for the following components: Protime 23.9 (*) All other components within normal limits CT Abdomen Pelvis wo Contrast Final Result No acute findings in the abdomen/pelvis. -------- FINAL REPORT -------- Dictated By: NANCY ACHARYA Dictated Date: 12/18/2024 09:28 ET Assigned Physician: NANCY ACHARYA Reviewed and Electronically Signed By: NANCY ACHARYA Signed Date: 12/18/2024 09:36 ET Workstation ID: [id number] Transcribed By: Self Edit Transcribed Date: 12/18/2024 09:28 ET I have discussed the incidental/abnormal imaging and/or lab abnormalities with the patient and haveinstructed them the need for further evaluation and workup with their primary care doctor. I have provided the patient with a paper copy of the abnormality. The laboratory results, imaging results and other diagnostic exam results were reviewed in the EMR. EKG Interpretation Critical Care Time None ? Medical Decision Making Medications famotidine (PF) (PEPCID) injection 20 mg (20 mg intravenous Given 12/18/24 0946) ondansetron (PF) (ZOFRAN) injection 4 mg (4 mg intravenous Given 12/18/2447) morphine 2 mg/mL injection 2 mg (2 mg intravenous Given 12/18/24 0947) ED Course as of 12/18/24 1054 Tue Dec 18, 2024 0844 This is a 79-year-old male with multiple comorbidity including CAD, diabetes, interstitial lung disease on 6 L nasal cannula at baseline, hypertension, hyperlipidemia presented hospital today for evaluation of right- sided abdominal pain that started 4 days ago. Obtain a CT abdomen pelvis Wo contrast to evaluate a cause of his right side abdominal pain. CBC CMP and lipase to be obtained with plan to obtain INR as well. I suspect patient likely has gastroenteritis however given his comorbidity. Patient is certainly high risk for any intra-abdominal pathology. Will plan to give patient a dose of IV Pepcid and IV Zofran as well. [TC] 1052 On reassessment patient states that his pain has improved. He feels much better. Patient lab work did show elevated creatinine 2.19. This close to his baseline creatinine level. He does have slight anemia 12.7. Patient CT abdomen pelvis was negative for any signs of acute abnormality. Will plan prescribe patient Pepcid. It looks like patient is on omeprazole currently for gastric reflux. Patient will be discharged with close outpatient follow-up with his primary care doctor. [TC] ED Course User Index [TC] Katharina Castellanos DO Clinical Impressions as of 12/18/24 1054 Gastritis without bleeding, unspecified chronicity, unspecified gastritis type Procedures Procedures Diagnosis 1. Gastritis without bleeding, unspecified chronicity, unspecified gastritis type Disposition Discharge ED Prescriptions Medication Sig Dispense Start Date End Date Auth. Provider famotidine (PEPCID) 20 mg tablet Take 1 tablet (20 mg total) by mouth 2 (two) times a day for 15 days. 30 tablet 12/18/2024 01/02/2025 Katharina Castellanos DO Physician Attestation Katharina Castellanos, 12/18/24 0806 Katharina Castellanos DO 12/18/24 0846 Katharina Castellanos DO 12/18/24 1054 documented in this encounter Plan of Treatment Upcoming Encounters Date Type Department Care Team (Late st Contact Info) Description 12/28/2024 11:20 AM EST Anticoagulation - Warfarin Visit [facility] [address] [phone] 01/31/2025 9:45 AM EST Office Visit Adult Medicine [address] [phone] Juan Velasquez PA [address] [place] [address] 03/21/2025 10:00 AM EDT Office Visit Endocrinology [address] [phone] Nicole Samson PA [address] [place] [phone] 06/18/2025 9:45 AM EDT Office Visit Adult Medicine [facility] [address] [place], [place] [phone] Moris Machado MD [address] [place], [place] documented as of this encounter Procedures Procedure Name Priority Date/Time Associated Diagnosis Comments PROTHROMBIN TIME WITH INR STAT 12/18/2024 9:[address] ABDOMEN PELVIS WO CONTRAST STAT 12/18/2024 9:19 AM EST CBC WITH AUTO DIFFERENTIAL STAT 12/18/2024 7:43 AM EST CBC AND DIFFERENTIAL STAT 12/18/2024 7:43 AM EST LIPASE STAT 12/18/2024 7:43 AM EST COMPREHENSIVE METABOLIC PANEL STAT 12/18/2024 7:43 AM EST ECG OUTSIDE 12/18/2024 documented in this encounter Results * (ABNORMAL) Protime-INR (12/18/2024 9:44 AM EST) Protime 23.9(H) 10.6 - 13.9 sec LAB COAGULATION METHOD 12/18/2024 10:21 AM EST [facility] INR 1.9 LAB COAGULATION METHOD 12/18/2024 10:21 AM EST [facility] Blood Venous blood specimen / Unknown Venipuncture / Unknown 12/18/2024 9:44 AM EST 12/18/2024 10:13 AM EST Katharina Castellanos DO LAB BLOOD ORDERAB LES [facility] [address] [place] [address], * CT Abdomen Pelvis wo Contrast (12/18/2024 9:19 AM EST) Anatomical Region Laterality Modality Body Computed Tomogra phy 12/18/2024 9:28 AM EST Impressions 12/18/2024 9:36 AM EST No acute findings in the abdomen/pelvis. -------- FINAL REPORT -------- Dictated By: NANCY ACHARYA Dictated Date: 12/18/2024 09:28 ET Assigned Physician: NANCY ACHARYA Reviewed and Electronically Signed By: NANCY ACHARYA Signed Date: 12/18/2024 09:36 ET Workstation ID: [id number] Transcribed By: Self Edit Transcribed Date: 12/18/2024 [...] changes seen throughout the spine.. Procedure Note Nancy Acharya MD - 12/18/2024 PROCEDURE: CT abdomen/pelvis INDICATION: [...] abdomen/pelvis. -------- FINAL REPORT -------- Dictated By: NANCY ACHARYA Dictated Date: 12/18/2024 09:28 ET Assigned Physician: NANCY ACHARYA Reviewed and Electronically Signed By: NANCY ACHARYA Signed Date: 12/18/2024 09:36 ET Workstation ID: [id number] Transcribed By: Self Edit Transcribed Date: 12/18/2024 09:28 ET Katharina Encarnacion Emanuel DO [facility] CT PROCEDURES * (ABNORMAL) CBC auto differential (12/18/2024 7:43 AM EST) WBC 6.9 4.8 - 10.8 K/mcL LAB HEMETOLOGY METHOD 12/18/2024 8:37 AM EST [facility] RBC 4.80 4.50 - 5.50 M/mcL LAB HEMETOLOGY METHOD 12/18/2024 8:37 AM EST [facility] Hemoglobin 12.7(L) 13.5 - 17.5 g/dL LAB HEMETOLOGY METHOD 12/18/2024 8:37 AM [facility] Hematocrit 41.1(L) 42.0 - 54.0 % LAB HEMETOLOGY METHOD 12/18/2024 8:37 AM [facility] MCV 86.0 79.0 - 98.0 FL LAB HEMETOLOGY METHOD 12/18/2024 8:37 AM [facility] MCH 26.6(L) 27.0 - 32.0 pcg LAB HEMETOLOGY METHOD 12/18/2024 8:37 AM [facility] MCHC 30.9(L) 32.0 - 37.0 g/dL LAB HEMETOLOGY METHOD 12/18/2024 8:37 AM [facility] RDW 22.4(H) 11.0 - 15.0 % LAB HEMETOLOGY METHOD 12/18/2024 8:37 AM [facility] Platelets 172 130 - 400 K/mcL LAB HEMETOLOGY METHOD 12/18/2024 8:37 AM [facility] MPV 10.7 7.0 - 11.0 FL LAB HEMETOLOGY METHOD 12/18/2024 8:37 AM [facility] NRBC 0.0 <1.0 % LAB HEMETOLOGY METHOD 12/18/2024 8:37 AM [facility] NRBC Absolute 0.00 <0.10 K/mcL LAB HEMETOLOGY METHOD 12/18/2024 8:37 AM [facility] Neutrophils Relative 52.9 % LAB HEMETOLOGY METHOD 12/18/2024 8:37 AM [facility] Lymphocytes Relative 34.9 % LAB HEMETOLOGY METHOD 12/18/2024 8:37 AM [facility] Monocytes Relative 10.3 % LAB HEMETOLOGY METHOD 12/18/2024 8:37 AM [facility] Eosinophils Relative 1.3 % LAB HEMETOLOGY METHOD 12/18/2024 8:37 AM EST [facility] Basophils Relative 0.3 % LAB HEMETOLOGY METHOD 12/18/2024 8:37 AM EST [facility] Immature Granulocytes Relative 0.3 % LAB HEMETOLOGY METHOD 12/18/2024 8:37 AM EST [facility] Neutrophils Absolute 3.65 1.50 - 7.00 K/mcL LAB HEMETOLOGY METHOD 12/18/2024 8:37 AM EST [facility] Lymphocytes Absolute 2.41 1.00 - 5.00 K/mcL LAB HEMETOLOGY METHOD 12/18/2024 8:37 AM EST [facility] Monocytes Absolute 0.71 0.20 - 1.00 K/mcL LAB HEMETOLOGY METHOD 12/18/2024 8:37 AM EST [facility] Eosinophils Absolute 0.09 0.00 - 0.50 K/mcL LAB HEMETOLOGY METHOD 12/18/2024 8:37 AM EST [facility] Basophils Absolute 0.02 0.00 - 0.20 K/mcL LAB HEMETOLOGY METHOD 12/18/2024 8:37 AM EST [facility] Immature Granulocytes Absolute 0.02 0.00 - 0.03 K/mcL LAB HEMETOLOGY METHOD 12/18/2024 8:37 AM [facility] Blood Venous blood specimen / Unknown Venipuncture / Unknown 12/18/2024 7:43 AM EST 12/18/2024 8:31 AM EST Katharnia Castellanos DO LAB BLOOD ORDERAB LES [facility] [address] [place] [address], * Lipase (12/18/2024 7:43 AM EST) Lipase 57 13 - 75 unit/L LAB CHEMISTRY METHOD 12/18/2024 9:07 AM [facility] Blood Venous blood specimen / Unknown Venipuncture / Unknown 12/18/2024 7:43 AM EST 12/18/2024 8:31 AM EST Katharina Castellanos DO LAB BLOOD ORDERAB LES [facility] [address] [place] [address], * (ABNORMAL) Comprehensive metabolic panel (12/18/2024 7:43 AM EST) Sodium 140 133 - 145 mmol/L LAB CHEMISTRY METHOD 12/18/2024 9:07 AM [facility] Potassium 3.5 3.5 - 5.5 mmol/L LAB CHEMISTRY METHOD 12/18/2024 9:07 AM [facility] Comment:Hemolysis present Chloride 106 96 - 110 mmol/L LAB CHEMISTRY METHOD 12/18/2024 9:07 AM [facility] CO2 24 21 - 32 mmol/L LAB CHEMISTRY METHOD 12/18/2024 9:07 AM [facility] Anion Gap 10 3 - 11 LAB CHEMISTRY METHOD 12/18/2024 9:07 AM [facility] Glucose 96 70 - 100 mg/dL LAB CHEMISTRY METHOD 12/18/2024 9:07 AM [facility] BUN 42(H) 5 - 25 mg/dL LAB CHEMISTRY METHOD 12/18/2024 9:07 AM [facility] Creatinine 2.19(H) 0.70 - 1.30 mg/dL LAB CHEMISTRY METHOD 12/18/2024 9:07 AM [facility] eGFR 30(L) >=60 mL/min/1. 73m2 LAB CHEMISTRY METHOD 12/18/2024 9:07 AM [facility] Comment:Calculation based on the??Chronic Kidney Disease Epidemiology Collaboration (CKD-EPI) equation refit??without adjustment for race. BUN/Creatinine Ratio 19.2 LAB CHEMISTRY METHOD 12/18/2024 9:07 AM [facility] Calcium 6.4(L) 8.5 - 10.5 mg/dL LAB CHEMISTRY METHOD 12/18/2024 9:07 AM [facility] AST (SGOT) 34 10 - 42 unit/L LAB CHEMISTRY METHOD 12/18/2024 9:07 AM [facility] Comment:Hemolysis present ALT (SGPT) 28 10 - 60 unit/L LAB CHEMISTRY METHOD 12/18/2024 9:07 AM [facility] Alkaline Phosphatase 43 42 - 121 unit/L LAB CHEMISTRY METHOD 12/18/2024 9:07 AM [facility] Total Protein 6.5 6.0 - 8.0 g/dL LAB CHEMISTRY METHOD 12/18/2024 9:07 AM [facility] Albumin 3.1(L) 3.2 - 5.0 g/dL LAB CHEMISTRY METHOD 12/18/2024 9:07 AM [facility] Total Bilirubin 0.5 0.0 - 1.4 mg/dL LAB CHEMISTRY METHOD 12/18/2024 9:07 AM [facility] Blood Venous blood specimen / Unknown Venipuncture / Unknown 12/18/2024 7:43 AM EST 12/18/2024 8:31 AM EST Katharina Castellanos DO LAB BLOOD ORDERAB LES [facility] [address] [place] [address], * ECG-Outside (12/18/2024) Provider Onbase MD ECG ORDERABLES documented in this encounter Visit Diagnoses Diagnosis Gastritis without bleeding, unspecified chronicity, unspecified gastritis type- Primary documented in this encounter Administered Medications Inactive Administered Medications - up to 3 most recent administrations Medication Order MAR Action Action Date Dose Rate Site famotidine (PF) (PEPCID) injection 20 mg 20 mg, intravenous, Administer over 2 Minutes, Once, On e 12/18/24 at 0817, For 1 dose Given 12/18/2024 9:46 AM EST 20 mg morphine 2 mg/mL injection 2 mg 2 mg, intravenous, Once, On Tu12/18/24 at 0852, For 1 dose Given 12/18/2024 9:47 AM EST 2 mg ondansetron (PF) (ZOFRAN) injection 4 mg 4 mg, intravenous, Once, On Tu12/18/24 at 0817, For 1 dose Given 12/18/2024 9:47 AM EST 4 mg documented in this encounter Active and Recently Administered Medications Times are shown in EST. Scheduled Medication Order 12/16/2024 12/17/2024 12/18/2024 famotidine (PF) (PEPCID) injection 20 mg (COMPLETED) 20 mg, intravenous, Administer over 2 Minutes, Once, On Tue12/18/24 at 0817, For 1 dose 0946 (Given - Provid er: Geri Vincent RN) morphine 2 mg/mL injection 2 mg (COMPLETED) 2 mg, intravenous, Once, On 12/18/24 at 0852, For 1 dose 0947 (Given - Provid er: Geri Vincent RN) ondansetron (PF) (ZOFRAN) injection 4 mg (COMPLETED) 4 mg, intravenous, Once, On 12/18/24 at 0817, For 1 dose 0947 (Given - Provid er: Geri Vincent RN) documented in this encounter Additional Health Concerns Assessment Noted Time PHQ-9 Depression Total Score: 7 12/10/19 11:19 AM EST A fall risk assessment has been complete d for the patient 12/10/2024 11:17 AM EST documented as of this encounter Care Teams Assistant Toddler Teacher Relationship Specialty Start Date End Date Moris Machado MD [address] [place] [id number] PCP - General Internal Medicine 10/09/24 documented as of this encounter
--- OUTSIDE RECORDS SUMMARY | 2024-12-27 11:34 | XMS_ITS | Encounter Summary ---
Author Organization [facility] Address [address] [place] [address] Care Team Providers Care Roll Form Operator Name Role Phone Moris Machado MD Primary Care Provider [phone] Reason for Visit * Reason Onset Date Comments PRIOR AUTHORIZATION 12/07/2024 Encounter Details Date Type Department Care Team ([facility] Contact Info) Description 12/07/2024 Telephone [facility] [address] [place] [address] Kati Gonzalez MD [address] [place] [address] PRIOR AUTHORIZATION Social History Tobacco Use Types Packs/Day Years [...] as of this encounter Progress Notes * CONNIE Contreras - 12/14/2024 3:37 PM EST Done * CONNIE Contreras - 12/13/2024 2:46 PM EST Patient overdue for an appointment. Has appointment with me tomorrow. Will wait till tomorrow's visit to do prior authorization order for CGM as at this time it would not be approved * Lucrecia Tellez - 12/07/2024 1:50 PM EST Prior Authorization for Medication-do not complete and send this encounter unless you have the fax from the pharmacy. Is this a Cover My Meds request: [place] of Medication FREESTYLE FER 3 SENSOR Dose of Medication FER 3 What is the RX # from the faxed refill? [id number] How does patient take this med? APPLY 1 SENSOR EVERY 14 DAYS What Pharmacy did the fax come from: [facility] Pharmacy fax #: [phone] documented in this encounter Plan of Treatment Upcoming Encounters Date Type Department Care Team (Late st Contact Info) Description 12/28/2024 11:20 AM EST Anticoagulation - Warfarin Visit [facility] [address] [phone] 01/31/2025 9:45 AM EST Office Visit Adult Medicine [address] [phone] Juan Velasquez PA [address] [place] [address] 03/21/2025 10:00 AM EDT Office Visit Endocrinology - [address] [phone] Nicole Samson PA [address] [place] [phone] 06/18/2025 9:45 AM EDT Office Visit Adult Medicine [facility] [address] [place] [phone] Moris Machado MD [address] [place] [phone] documented as of this encounter Visit Diagnoses Not on filedocumented in this encounter Additional Health Concerns Infection Onset Date Last Indicated Resolved Time Respiratory Rule-Out 12/11/2024 12/11/2024 025 6:04 PM EST documented as of this encounter Care Teams Roll Form Operator Relationship Specialty Start Date End Date Moris Machado MD [address] [place] [id number] PCP - General Internal Medicine 10/09/24 documented as of this encounter
--- OUTSIDE RECORDS SUMMARY | 2024-12-27 11:34 | XMS_ITS | Encounter Summary ---
Author Organization [facility] Address [address] [place] [address] Care Team Providers Care Manager Pharmaceutical Name Role Phone Moris Machado MD Primary Care Provider [phone] Reason for Visit * Reason Onset Date Comments VNA Order 11/13/2024 [facility] r #[id number] Encounter Details Date Type Department Care Team (Late st Contact Info) Description 11/13/2024 Telephone Adult Medicine [address] [phone] Moris Machado MD [address] [place] [phone] VNA Order ([facility]Order #[id number]) Social History Tobacco Use Types Packs/Day Years [...] encounter Progress Notes * Lauren Gonzalez - 11/13/2024 1:41 PM EST Received order [id number] from [facility] and placed in provider bin. Please review, sign, and fax to [phone]. documented in this encounter Plan of Treatment Upcoming Encounters Date Type Department Care Team (Late st Contact Info) Description 12/28/2024 11:20 AM EST Anticoagulation - Warfarin Visit [facility] [address] [phone] 01/31/2025 9:45 AM EST Office Visit Adult [address] [phone] Juan Velasquez PA [address] [place] [address] 03/21/2025 10:00 AM EDT Office Visit Endocrinology [address] [phone] Nicole Samson PA [address] [place] [address] 06/18/2025 9:45 AM EDT Office Visit [address] [phone] Moris Machado MD [address] [place] [address] documented as of this encounter Visit Diagnoses Not on filedocumented in this encounter Additional Health Concerns Infection Onset Date Last Indicated Resolved Time Respiratory Rule-Out 11/20/2024 11/20/2024 024 12:17 PM EST COVID-19 Rule-Out 11/20/2024 11/20/2024 11/20/2024 12:17 PM EST Respiratory Rule-Out 12/11/2024 12/11/2024 025 6:04 PM EST documented as of this encounter Care Teams Manager Pharmaceutical Relationship Specialty Start Date End Date Moris Machado MD [address] [place] [address] PCP - General Internal Medicine 10/09/24 documented as of this encounter
--- OUTSIDE RECORDS SUMMARY | 2024-12-27 11:34 | XMS_ITS | Encounter Summary ---
Author Organization [facility] Address [address] [place] [address] Care Team Providers Care Commercial Lease Administrator Name Role Phone Moris Machado MD Primary Care Provider [phone] Reason for Visit * Reason Comments Shortness of Breath Arrives via ems ([facility] ) on NRB due to low sats Encounter Details Date Type Department Care Team (Late st Contact Info) Description 12/11/2024 2:04 PM EST - 12/11/2024 8:46 PM EST Emergency [facility] Emergency [address] [place] [id number] Brent Ojeda MD [address] [place] [address] Shortness of breath (Primary Dx); COPD exacerbation (CMS/HCC) Discharge Disposition: Home or Self Care Social [...] Sign Reading Time Taken Comments Blood Pressure 149/61 12/11/2024 6:48 PM EST Pulse 68 12/11/2024 6:48 PM EST Temperature 36.8 ??C (98.3 ??F) 12/11/2024 5:18 PM ES T Respiratory Rate 15 12/11/2024 6:48 PM EST Oxygen Saturation 95% 12/11/2024 6:48 PM EST Inhaled Oxygen Concentration - - Weight 79.8 kg (176 lb) 12/11/2024 2:46 PM EST Height 155.8 cm (5' 1.32 ) 12/11/2024 2:46 PM ES T Body Mass Index 32.91 12/11/2024 2:46 PM EST documented in this encounter Discharge Instructions * Discharge Instructions* Brent Ojeda MD - 12/11/2024 7:27 PM EST You were evaluated and treated in the emergency department today for shortness of breath that resolved. You need to continue to wear your oxygen as directed, 4 L at rest and 5 L with ambulation. Continue to take your daily medications as prescribed. Please follow-up with your primary care physician and day care aide. documented in this encounter Medications at Time [...] mouth 1 (one) time each day. 07/17/2024 Entresto 49-51 mg per tablet TAKE 1 TABLET BY MOUTH TWICE DAILY 180 tablet 1 10/08/2024 folic acid (FOLVITE) 400 mcg tablet Take 1 tablet (0.4 mg total) by mouth 1 (one) time each day. 08/10/2024 ipratropium-albutero L (Combivent Respimat) 20-100 mcg/actuation inhaler [...] BY MOUTH DAILY 90 capsule 1 11/09/2024 predniSONE (DELTASONE) 10 mg tablet Take 1 [...] CHANGE DIETARY HABITS 90 tablet 1 12/04/2024 empagliflozin (Jardiance) 25 mg tablet Take 25 mg by mouth daily. 08/22/2024 12/14/2024 Lantus Solostar U-100 Insulin 100 unit/mL (3 mL) injection pen INJECT 20 UNITS SUBCUTANEOUS EVERY EVENING 15 mL 11/09/2024 12/14/2024 documented as of this encounter Discharge Disposition Disposition Code Departure Means Destination Comment s Home or Self Care documented in this encounter Progress Notes * Oralia Alonso RN - 12/11/2024 8:21 PM EST PT IV D/C'D , DRESSING IN PLACE, PT CHANGING INTO HIS PERSONAL CLOTHES, RIDE HOME IS ALMOST AT ER * Marion Nash - 12/11/2024 7:18 PM EST Walk with pt with o2 tank and oximetr on the finger, pt stated that during walking his O2 base line93 with 6L of O2. While walking pt's saturation was between 85-89%, rased O2 on 8L saturation was not high of 92% and constantly dropped till 89%, pt was noted with sob. Dr. Dumont notified about results. Marion Nash 12/11/241922 * April Peterson RN - 12/11/2024 2:22 PM EST Per EMS patient arrives from home where he lives with his . With concern for low O2 sat. Patient reportedly called 911 x 2 today on first visit Fire noted that patient was sating 60% and tripoding while patient denies any complaints of SOB or difficulty breathing. Patient was placed on oxygen with improved O2 sat and patient refused transport. On second call patient noted to have decreasing O2 sat with notable improvement when placed on 10L NRB now sating 94-95%. Patient states he uses 5L O2 at baseline. At this time EMS also noted irregular EKG without afib present. HR ranging from 70-100 RR 20 and continues to deny any complaints. EMS notes lungs clear, 22g peripheral IV to right hand, no medications given during transport. Primary RN updated on EMS report at this time, patient has been placed on tele monitor and sating 5L 94%. * Brent Ojeda MD - 12/11/2024 1:59 PM EST Emergency Medicine Note Patient Name: Tommy Love Initial Evaluation: 12/11/2024 : 1945 Patient's PCP: Moris Machado MD Emergency Physician: Brent Ojeda MD History of Present Illness Chief Complaint: Chief Complaint Patient presents with Shortness of Breath Arrives via ems ([facility]) on NRB due to low sats 79-year-old male with history of oxygen dependent COPD presents for evaluation of shortness of breath and low oxygen saturation at home. Has further medical history below. He is cared for by pulmonology. He reports he was feeling well yesterday but this morning he developed difficulty breathing andnoticed that his oxygen saturation was in the 70s despite his 4 to 5 L of supplemental oxygen at home. Called EMS and was found to be hypoxic and tachycardic but after improvement at home EMS did nottransport. He called back again due to recurrence and was put on a nonrebreather due to hypoxia andnow is stabilized and back on 4 L nasal cannula. He states he is feeling well now. He denies chest pain, shortness of breath, abdominal pain, vomiting or diarrhea. He has not had a fever recently. [place] contacts. ROS: I have performed a ROS with the pertinent positives and negatives documented in the history ofpresent illness. Previous History Past Medical History: Diagnosis Date A-fib (CMS/[facility]) 03/16/2012 DX:A-fib ([facility]) Asthma DX:Asthma CAD (coronary artery disease) 03/16/2012 DX:CAD (coronary artery disease) Glaucoma 06/05/2012 DX:Glaucoma High cholesterol 03/16/2012 DX:High cholesterol Historical Medical DX 04/20/2012 DX:PPD negative HTN (hypertension) 03/16/2012 DX:HTN (hypertension) ILD (interstitial lung disease) ([facility]) 11/30/2021 DX:ILD (interstitial lung disease) ([facility]) RA (rheumatoid arthritis) ([facility] [place]) 03/16/2012 DX:RA (rheumatoid arthritis) ([facility]) 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 Constitutional: Appearance: Normal appearance. He is not ill-appearing. HENT: Head: Normocephalic. Mouth/Throat: Mouth: Mucous membranes are moist. Eyes: Conjunctiva/sclera: Conjunctivae normal. Cardiovascular: Rate and Rhythm: Normal rate and regular rhythm. Pulmonary: Effort: Pulmonary effort is normal. Breath sounds: Normal breath sounds. No stridor. Abdominal: Palpations: Abdomen is soft. Tenderness: There is no abdominal tenderness. Musculoskeletal: Cervical back: Normal range of motion. Right lower leg: No swelling or tenderness. No edema. Left lower leg: No swelling or tenderness. No edema. Skin: General: Skin is warm and dry. Neurological: General: No focal deficit present. Mental Status: He is alert. Psychiatric: Attention and Perception: Attention normal. Behavior: Behavior normal. Results Labs Reviewed COMPREHENSIVE METABOLIC PANEL - Abnormal Result Value Sodium 138 Potassium 3.6 Chloride 103 CO2 28 Anion Gap 7 Glucose 149 (*) BUN 34 (*) Creatinine 1.83 (*) eGFR 37 (*) BUN/Creatinine Ratio 18.6 Calcium 9.4 AST (SGOT) 17 ALT (SGPT) 22 Alkaline Phosphatase 59 Total Protein 7.6 Albumin 3.7 Total Bilirubin 0.6 CBC WITH AUTO DIFFERENTIAL - Abnormal WBC 9.4 RBC 5.50 Hemoglobin 14.6 Hematocrit 48.0 MCV 87.6 MCH 26.6 (*) MCHC 30.4 (*) RDW 21.9 (*) Platelets 149 MPV 12.4 (*) NRBC 0.0 NRBC Absolute 0.00 Neutrophils Relative 80.9 Lymphocytes Relative 14.3 Monocytes Relative 3.8 Eosinophils Relative 0.4 Basophils Relative 0.3 Immature Granulocytes Relative 0.3 Neutrophils Absolute 7.58 (*) Lymphocytes Absolute 1.34 Monocytes Absolute 0.36 Eosinophils Absolute 0.04 Basophils Absolute 0.03 Immature Granulocytes Absolute 0.03 RESPIRATORY VIRUS PANEL MOLECULAR STUDY - Normal Adenovirus Detection by PCR Not Detected Influenza A PCR Not Detected Influenza B PCR Not Detected Coronavirus 229E Not Detected Coronavirus HKU1 Not Detected Coronavirus OC43 Not Detected Coronavirus NL63 Not Detected Parainfluenza Virus 1 Not Detected Parainfluenza Virus 2 Not Detected Parainfluenza Virus 3 Not Detected Parainfluenza Virus 4 Not Detected RSV PCR Not Detected Human Metapneumovirus A and B Not Detected Rhinovirus/Enterovirus Not Detected Bordetella pertussis Not Detected Bordetella parapertussis Not Detected Mycoplasma pneumo by PCR Not Detected Chlamydia pneumoniae Not Detected SARS COV-2 Not Detected Narrative: Testing was performed using the [employer] Respiratory Pathogen PCR Assay. All results must [...] that are below the limit of detection. TROPONIN I HIGH SENSITIVITY - Normal High Sensitivity Troponin I 32 Narrative: High levels of biotin in samples may falsely decrease hsTroponin values. Use caution when interpreting hsTroponin results in patients taking biotin who exhibit renal impairment (eGFR <60) or in patients taking more than 20 mg/day of biotin. CBC AND DIFFERENTIAL Narrative: The following orders were created for panel order CBC and differential. Procedure Abnormality Status --------- ------ CBC auto differential[[id number]] Abnormal Final result Please view results for these tests on the individual orders. Abnormal Labs Reviewed COMPREHENSIVE METABOLIC PANEL - Abnormal; Notable for the following components: Result Value Glucose 149 (*) BUN 34 (*) Creatinine 1.83 (*) eGFR 37 (*) All other components within normal limits CBC WITH AUTO DIFFERENTIAL - Abnormal; Notable for the following components: MCH 26.6 (*) MCHC 30.4 (*) RDW 21.9 (*) MPV 12.4 (*) Neutrophils Absolute 7.58 (*) All other components within normal limits XR Chest 2 Views Final Result Impression: 1. Stable mild cardiomegaly. 2. Fine bibasilar reticular opacities, unchanged from the previous study, most likely representing interstitial fibrosis. Telenorberto ROSALES ([id number]) -------- FINAL REPORT -------- Dictated By: Maria Luisa España Dictated Date: 12/11/2024 16:34 ET Assigned Physician: Maria Luisa España Reviewed and Electronically Signed By: Maria Luisa España Signed Date: 12/11/2024 16:37 ET Workstation ID: [id number] Transcribed By: Self Edit Transcribed Date: 12/11/2024 16:34 ET I have discussed the incidental/abnormal imaging and/or lab abnormalities with the patient and haveinstructed them the need for further evaluation and workup with their primary care doctor. I have provided the patient with a paper copy of the abnormality. The laboratory results, imaging results and other diagnostic exam results were reviewed in the EMR. EKG Interpretation Critical Care Time None ? Differential Diagnosis Bronchitis, pneumonia, pulmonary edema, COPD exacerbation ACS Medical Decision Making Medical Decision Making Patient arrives on facemask. I spoke with the software sales consultant who was not at the first EMS call but reports that the crew there reported the patient's heart rate was in the 180s at the time. Recently reviewed the twelve-lead from EMS and there were no ischemic findings but patient did have multiple PVCs on one of the tracings. Even though he is feeling well now will screen for possible cardiac etiologygiven his episodic symptoms as well as pneumonia. Amount and/or Complexity of Data Reviewed Independent Historian: EMS Details: As above Medications albuterol 2.5 mg /3 mL (0.083 %) nebulizer solution 2.5 mg (2.5 mg nebulization Given 12/11/24 193) ED Course as of 12/13/24 0801 TueDec 11, 2024 1748 XR Chest 2 Views Chest x-ray [TC] 1921 Negative viral panel. Chest x-ray is clear. Blood work shows acute on chronic renal insufficiency. No leukocytosis or anemia. [TC] 192 Patient ambulated and states he felt well while doing this. technical illustrator reports that he was mildlydyspneic and had to have 8 L via nasal cannula to maintain oxygen saturation above 90%. I discussedthis with him and he would like to be discharged despite this and reports that he will use increased oxygen at home. He continues to clear lungs on auscultation. [TC] ED Course User Index [TC] Brent Ojeda MD Clinical Impressions as of 12/13/24 0801 Shortness of breath COPD exacerbation (CMS/HCC) Procedures Procedures Diagnosis 1. Shortness of breath 2. COPD exacerbation (CMS/HCC) Disposition Discharge ED Prescriptions None Physician Attestation Please note that this chart has been created using speech recognition software and may contain errors related to that system, including errors in grammar, punctuation, and spelling. It may also include errors in words and phrases. If there are any questions or concerns, please feel free to contact me for clarification. Brent Ojeda MD 12/11/24 1514 documented in this encounter Plan of Treatment Upcoming Encounters Date Type Department Care Team (Late st Contact Info) Description 12/28/2024 11:20 AM EST Anticoagulation - Warfarin Visit [facility] [address] [phone] 01/31/2025 9:45 AM EST Office Visit Adult Medicine [address] [phone] Juan Velasquez PA [address] [place] [address] 03/21/2025 10:00 AM EDT Office Visit Endocrinology [address] [phone] Nicole Samson PA [address] [place] [phone] 06/18/2025 9:45 AM EDT Office Visit Adult Medicine [address] [phone] Moris Machado MD [address] [place] [id number] documented as of this encounter Procedures Procedure Name Priority Date/Time Associated Diagnosis Comments ECG 12-LEAD STAT 12/11/2024 5:24 PM EST RESPIRATORY VIRUS PANEL MOLECULAR STUDY STAT 12/11/2024 4:24 PM EST TROPONIN I HIGH SENSITIVITY STAT 12/11/2024 4:23 PM EST CBC WITH AUTO DIFFERENTIAL STAT 12/11/2024 4:23 PM EST CBC AND DIFFERENTIAL STAT 12/11/2024 4:23 PM EST COMPREHENSIVE METABOLIC PANEL STAT 12/11/2024 4:23 PM EST XR CHEST 2 VIEWS STAT 12/11/2024 4:11 PM EST ECG OUTSIDE 12/11/2024 ECG ANNOTATED 12/11/2024 documented in this encounter Results * 12-Lead ECG (12/11/2024 5:24 PM EST) Ventricular Rate ECG 73 BPM GEMUSE Atrial Rate 73 BPM GEMUSE P-R Interval 148 ms GEMUSE QRS Duration 130 ms GEMUSE Q-T Interval 440 ms GEMUSE QTc 484 ms GEMUSE P Wave [place] 76 degrees GEMUSE R [place] 85 degrees GEMUSE T [place] -2 degrees GEMUSE ECG Interpretation Sinus rhythm with Premature supraventricular complexes Right bundle branch block Abnormal ECG When compared with ECG of 20-NOV-2024 11:07, Premature ventricular complexes are no longer Present Confirmed by Betty ATKINSON JOHN ([id number]) on 12/11/2024 9:52:05 PM GEMUSE 12/11/2024 5:24 PM EST 12/11/2024 9:52 PM EST Brent Ojeda MD ECG ORDERABLES GEMUSE * Respiratory virus panel molecular study (12/11/2024 4:24 PM EST) Pathologist [facility] Adenovirus Detection by PCR Not Detected Not Detected LAB MICROBIOLOGY METHOD 12/11/2024 6:04 PM [facility] Influenza A PCR Not Detected Not Detected LAB MICROBIOLOGY METHOD 12/11/2024 6:04 PM [facility] Influenza B PCR Not Detected Not Detected LAB MICROBIOLOGY METHOD 12/11/2024 6:04 PM [facility] Coronavirus 229E Not Detected Not Detected LAB MICROBIOLOGY METHOD 12/11/2024 6:04 PM [facility] Coronavirus HKU1 Not Detected Not Detected LAB MICROBIOLOGY METHOD 12/11/2024 6:04 PM [facility] Coronavirus OC43 Not Detected Not Detected LAB MICROBIOLOGY METHOD 12/11/2024 6:04 PM [facility] Coronavirus NL63 Not Detected Not Detected LAB MICROBIOLOGY METHOD 12/11/2024 6:04 PM [facility] Parainfluenza Virus 1 Not Detected Not Detected LAB MICROBIOLOGY METHOD 12/11/2024 6:04 PM [facility] Parainfluenza Virus 2 Not Detected Not Detected LAB MICROBIOLOGY METHOD 12/11/2024 6:04 PM [facility] Parainfluenza Virus 3 Not Detected Not Detected LAB MICROBIOLOGY METHOD 12/11/2024 6:04 PM [facility] Parainfluenza Virus 4 Not Detected Not Detected LAB MICROBIOLOGY METHOD 12/11/2024 6:04 PM [facility] RSV PCR Not Detected Not Detected LAB MICROBIOLOGY METHOD 12/11/2024 6:04 PM [facility] Human Metapneumovirus A and B Not Detected Not Detected LAB MICROBIOLOGY METHOD 12/11/2024 6:04 PM [facility] Rhinovirus/Entero virus Not Detected Not Detected LAB MICROBIOLOGY METHOD 12/11/2024 6:04 PM EST [facility] Bordetella pertussis Not Detected Not Detected LAB MICROBIOLOGY METHOD 12/11/2024 6:04 PM EST [facility] Bordetella parapertussis Not Detected Not Detected LAB MICROBIOLOGY METHOD 12/11/2024 6:04 PM [facility] Mycoplasma pneumo by PCR Not Detected Not Detected LAB MICROBIOLOGY METHOD 12/11/2024 6:04 PM [facility] Chlamydia pneumoniae Not Detected Not Detected LAB MICROBIOLOGY METHOD 12/11/2024 6:04 PM [facility] SARS COV-2 Not Detected Not Detected LAB MICROBIOLOGY METHOD 12/11/2024 6:04 PM [facility] Swab Both anterior nares / Unknown Non-blood Collection / Unknown 12/11/2024 4:24 PM EST 12/11/2024 4:50 PM EST [facility] - 12/11/2024 6:04 PM EST Testing was performed using the [employer] Respiratory Pathogen PCR Assay. All results must [...] Ojeda MD LAB MICROBIOLOGY - GENERAL ORDERABLES [facility] [address] [place] [address], * (ABNORMAL) CBC auto differential (12/11/2024 4:23 PM EST) WBC 9.4 4.8 - 10.8 K/mcL LAB HEMETOLOGY METHOD 12/11/2024 5:04 PM EST [facility] RBC 5.50 4.50 - 5.50 M/mcL LAB HEMETOLOGY METHOD 12/11/2024 5:04 PM [facility] Hemoglobin 14.6 13.5 - 17.5 g/dL LAB HEMETOLOGY METHOD 12/11/2024 5:04 PM [facility] Hematocrit 48.0 42.0 - 54.0 % LAB HEMETOLOGY METHOD 12/11/2024 5:04 PM [facility] MCV 87.6 79.0 - 98.0 FL LAB HEMETOLOGY METHOD 12/11/2024 5:04 PM [facility] MCH 26.6(L) 27.0 - 32.0 pcg LAB HEMETOLOGY METHOD 12/11/2024 5:04 PM [facility] MCHC 30.4(L) 32.0 - 37.0 g/dL LAB HEMETOLOGY METHOD 12/11/2024 5:04 PM [facility] RDW 21.9(H) 11.0 - 15.0 % LAB HEMETOLOGY METHOD 12/11/2024 5:04 PM [facility] Platelets 149 130 - 400 K/mcL LAB HEMETOLOGY METHOD 12/11/2024 5:04 PM [facility] MPV 12.4(H) 7.0 - 11.0 FL LAB HEMETOLOGY METHOD 12/11/2024 5:04 PM [facility] NRBC 0.0 <1.0 % LAB HEMETOLOGY METHOD 12/11/2024 5:04 PM [facility] NRBC Absolute 0.00 <0.10 K/mcL LAB HEMETOLOGY METHOD 12/11/2024 5:04 PM [facility] Neutrophils Relative 80.9 % LAB HEMETOLOGY METHOD 12/11/2024 5:04 PM [facility] Lymphocytes Relative 14.3 % LAB HEMETOLOGY METHOD 12/11/2024 5:04 PM [facility] Monocytes Relative 3.8 % LAB HEMETOLOGY METHOD 12/11/2024 5:04 PM [facility] Eosinophils Relative 0.4 % LAB HEMETOLOGY METHOD 12/11/2024 5:04 PM [facility] Basophils Relative 0.3 % LAB HEMETOLOGY METHOD 12/11/2024 5:04 PM [facility] Immature Granulocytes Relative 0.3 % LAB HEMETOLOGY METHOD 12/11/2024 5:04 PM [facility] Neutrophils Absolute 7.58(H) 1.50 - 7.00 K/mcL LAB HEMETOLOGY METHOD 12/11/2024 5:04 PM [facility] Lymphocytes Absolute 1.34 1.00 - 5.00 K/mcL LAB HEMETOLOGY METHOD 12/11/2024 5:04 PM [facility] Monocytes Absolute 0.36 0.20 - 1.00 K/mcL LAB HEMETOLOGY METHOD 12/11/2024 5:04 PM [facility] Eosinophils Absolute 0.04 0.00 - 0.50 K/mcL LAB HEMETOLOGY METHOD 12/11/2024 5:04 PM [facility] Basophils Absolute 0.03 0.00 - 0.20 K/mcL LAB HEMETOLOGY METHOD 12/11/2024 5:04 PM [facility] Immature Granulocytes Absolute 0.03 0.00 - 0.03 K/mcL LAB HEMETOLOGY METHOD 12/11/2024 5:04 PM [facility] Blood Venous blood specimen / Unknown Venipuncture / Unknown 12/11/2024 4:23 PM EST 12/11/2024 4:52 PM EST Brent Ojeda MD LAB BLOOD ORDERAB LES [facility] [address] [place] [address], * Troponin I High Sensitivity (12/11/2024 4:23 PM EST) [facility] High Sensitivity Troponin I 32 <=79 ng/L LAB CHEMISTRY METHOD 12/11/2024 5:20 PM [facility] Blood Venous blood specimen / Unknown Venipuncture / Unknown 12/11/2024 4:23 PM EST 12/11/2024 4:52 PM EST [facility] - 12/11/2024 5:20 PM EST High levels of biotin in samples may falsely decrease hsTroponin values. ??Use caution when interpreting hsTroponin results in patients taking biotin who exhibit renal impairment (eGFR <60) or in patients taking more than 20 mg/day of biotin. Brent Ojeda MD LAB BLOOD ORDERAB LES [facility] [address] [place] [address], [place] [phone] * (ABNORMAL) Comprehensive Metabolic Panel (CMP) (12/11/2024 4:23 PM EST) [facility] Sodium 138 133 - 145 mmol/L LAB CHEMISTRY METHOD 12/11/2024 5:22 PM [facility] Potassium 3.6 3.5 - 5.5 mmol/L LAB CHEMISTRY METHOD 12/11/2024 5:22 PM [facility] Chloride 103 96 - 110 mmol/L LAB CHEMISTRY METHOD 12/11/2024 5:22 PM [facility] CO2 28 21 - 32 mmol/L LAB CHEMISTRY METHOD 12/11/2024 5:22 PM [facility] Anion Gap 7 3 - 11 LAB CHEMISTRY METHOD 12/11/2024 5:22 PM [facility] Glucose 149(H) 70 - 100 mg/dL LAB CHEMISTRY METHOD 12/11/2024 5:22 PM [facility] BUN 34(H) 5 - 25 mg/dL LAB CHEMISTRY METHOD 12/11/2024 5:22 PM [facility] Creatinine 1.83(H) 0.70 - 1.30 mg/dL LAB CHEMISTRY METHOD 12/11/2024 5:22 PM [facility] eGFR 37(L) >=60 mL/min/1. 73m2 LAB CHEMISTRY METHOD 12/11/2024 5:22 PM [facility] Comment:Calculation based on the??Chronic Kidney Disease Epidemiology Collaboration (CKD-EPI) equation refit??without adjustment for race. BUN/Creatinine Ratio 18.6 LAB CHEMISTRY METHOD 12/11/2024 5:22 PM [facility] Calcium 9.4 8.5 - 10.5 mg/dL LAB CHEMISTRY METHOD 12/11/2024 5:22 PM [facility] AST (SGOT) 17 10 - 42 unit/L LAB CHEMISTRY METHOD 12/11/2024 5:22 PM [facility] ALT (SGPT) 22 10 - 60 unit/L LAB CHEMISTRY METHOD 12/11/2024 5:22 PM [facility] Alkaline Phosphatase 59 42 - 121 unit/L LAB CHEMISTRY METHOD 12/11/2024 5:22 PM [facility] Total Protein 7.6 6.0 - 8.0 g/dL LAB CHEMISTRY METHOD 12/11/2024 5:22 PM [facility] Albumin 3.7 3.2 - 5.0 g/dL LAB CHEMISTRY METHOD 12/11/2024 5:22 PM [facility] Total Bilirubin 0.6 0.0 - 1.4 mg/dL LAB CHEMISTRY METHOD 12/11/2024 5:22 PM [facility] Blood Venous blood specimen / Unknown Venipuncture / Unknown 12/11/2024 4:23 PM EST 12/11/2024 4:52 PM EST Brent Ojeda MD LAB BLOOD ORDERAB LES [facility] [address] [place] [address], * XR Chest 2 Views (12/11/2024 4:11 PM EST) Anatomical Region Laterality Modality Body Radiographic Mary ging 12/11/2024 4:34 PM EST Impressions 12/11/2024 4:37 PM EST Impression: 1. Stable mild cardiomegaly. 2. Fine bibasilar reticular opacities, unchanged from the previous study, most likely representing interstitial fibrosis. Telerad PA ([id number]) -------- FINAL REPORT -------- Dictated By: Maria Luisa España Dictated Date: 12/11/2024 16:34 ET Assigned Physician: Maria Luisa España Reviewed and Electronically Signed By: Maria Luisa España Signed Date: 12/11/2024 16:37 ET Workstation ID: [id number] Transcribed By: Self Edit Transcribed Date: 12/11/2024 [...] previous study,most likely representing interstitial fibrosis. Telerad PA ([id number]) -------- FINAL REPORT -------- Dictated By: Maria Luisa España Dictated Date: 12/11/2024 16:34 ET Assigned Physician: Maria Luisa España Reviewed and Electronically Signed By: Maria Luisa [place] Signed Date: 12/11/2024 16:37 ET Workstation ID: [id number] Transcribed By: Self Edit Transcribed Date: 12/11/2024 16:34 ET Brent Ojeda MD IMG XR PROCEDURES * ECG-Annotated (12/11/2024) Provider Onbase ECG ORDERABLES * ECG-Outside (12/11/2024) Provider Onbase ECG ORDERABLES documented in this encounter Visit Diagnoses Diagnosis Shortness of breath- Primary COPD exacerbation ([facility]) Obstructive chronic bronchitis with exacerbation documented in this encounter Administered Medications Inactive Administered Medications - up to 3 most recent administrations Medication Order MAR Action Action Date Dose Rate Site albuterol 2.5 mg /3 mL (0.083 %) nebulizer solution 2.5 mg 2.5 mg, nebulization, Once, On Tue12/11/24 at 1926, For 1 dose Given 12/11/2024 7:38 PM EST 2.5 mg documented in this encounter Active and Recently Administered Medications Times are shown in EST. Scheduled Medication Order 12/09/2024 12/10/2024 12/11/2024 albuterol 2.5 mg /3 mL (0.083 %) nebulizer solution 2.5 mg (COMPLETED) 2.5 mg, nebulization, Once, On Tue12/11/24 at 1926, For 1 dose 1938 (Given - Provid er: Debi Vazquez RN) documented in this encounter Orders Medications Ordered That Reddy ht Not Have Been Administered Count Last Ordered Date First Ordered Date albuterol 2.5 mg /3 mL (0.08 3 %) nebulizer solution 2.5 mg 1 12/11/2024 documented in this encounter Additional Health Concerns Infection Onset Date Last Indicated Resolved Time Respiratory Rule-Out 12/11/2024 12/11/2024 025 6:04 PM EST Assessment Noted Time PHQ-9 Depression Total Score: 7 12/10/19 25 11:19 AM EST A fall risk assessment has been complete d for the patient 12/10/2024 11:17 AM EST documented as of this encounter Care Teams Commercial Lease Administrator Relationship Specialty Start Date End Date Moris Mahcado MD [address] [place] [id number] PCP - General Internal Medicine 10/09/24 documented as of this encounter
--- OUTSIDE RECORDS SUMMARY | 2024-12-27 11:34 | XMS_ITS | Encounter Summary ---
Author Organization [facility] Address [address] [place] [address] Care Team Providers Care Auto Mechanics Instructor Name Role Phone Moris Machado MD Primary Care Provider [phone] Encounter Details Date Type Department Care Team ([facility] Contact Info) Description 12/03/2024 Telephone [facility] [address] [place] [phone] Kati Gonzalez MD [address] [place] [phone] Social History Tobacco Use Types Packs/Day Years [...] Progress Notes * Sylvie Montgomery MA - 12/03/2024 1:44 PM EST The prior auth was done though [employer] and fax to for his Red e Appe 3 sensors. * Lucrecia Tellez - 12/03/2024 1:12 PM EST Prior Authorization for Medication-do not complete and send this encounter unless you have the fax from the pharmacy. Is this a Cover My Meds request: Benitez of Medication freestyle martha 3 sensors Dose of Medication martha 3 What is the RX # from the faxed refill? [phone] How does patient take this med? Appy 1 sensor every 14 days What Pharmacy did the fax come from: [facility] fax #: [phone] documented in this encounter Plan of Treatment Upcoming Encounters Date Type Department Care Team (Late st Contact Info) Description 12/28/2024 11:20 AM EST Anticoagulation - Warfarin Visit [facility] [address] [phone] 01/31/2025 9:45 AM EST Office Visit Adult Medicine [address] [phone] Juan Velasquez PA [address] [place] [address] 03/21/2025 10:00 AM EDT Office Visit Endocrinology [address] [phone] Nicole Samson PA [address] [place] [address] 06/18/2025 9:45 AM EDT Office Visit Adult Medicine [address] [phone] Moris Machado MD [address] [place] [address] documented as of this encounter Visit Diagnoses Not on filedocumented in this encounter Care Teams Auto Mechanics Instructor Relationship Specialty Start Date End Date Moris Machado MD [address] [place] [address] PCP - General Internal Medicine 10/09/24 documented as of this encounter
--- OUTSIDE RECORDS SUMMARY | 2024-12-27 11:34 | XMS_ITS | Encounter Summary ---
Author Organization [facility] Address [address] [facility] [address] [place] [address] Phone Care Team Providers Care Kindergarten Tutor Name Role Phone Moris Machado MD Primary Care Provider [phone] Encounter Details Date Type Department Care Team (Late st Contact Info) Description 02/27/2024 Office Communication [facility] [address] [facility] [address] [place] [phone] Davidson Quinonez MD [address] [facility] [address] [place] [phone] Social History Tobacco Use Types Packs/Day Years Used Date Smoking Tobacco: Never Smokeless Tobacco: Never Alcohol Use Standard Drinks/Week Comments Never 0 (1 standard drink = 0.6 oz pur e alcohol) Sex and Gender Information Value Date Recorded Sex Assigned at Not on file Legal Sex Male 10:41 AM EDT Gender Identity Not on file Sexual Orientation Not on file documented as of this encounter Miscellaneous Notes * Telephone Encounter - Davidson Quinonez MD - 02/27/2024 6:21 PM EDT Needs sooner appt in 3 months documented in this encounter Plan of Treatment Upcoming Encounters Date Type Department Care Team (Late st Contact Info) Description 08/26/2025 2:00 PM EDT Office Visit [facility] [address] [place] [phone] Davidson Quinonez MD [address] [phone] documented as of this encounter Visit Diagnoses Not on filedocumented in this encounter Care Teams Kindergarten Tutor Relationship Specialty Start Date End Date Moris Machado MD [address] [place] [address] PCP - General Internal Medicine 04/26/23 documented as of this encounter
--- OUTSIDE RECORDS SUMMARY | 2024-12-27 11:34 | XMS_ITS | Encounter Summary ---
Author Organization [facility] Address [address] [place] [address] Care Team Providers Care Warehouse Forklift Operator Name Role Phone Moris Machado MD Primary Care Provider [phone] Reason for Visit * Reason Onset Date Comments [facility]NA 12/26/2024 Encounter Details Date Type Department Care Team (Late st Contact Info) Description 12/26/2024 Telephone Adult Medicine [facility] [address] [place] [phone] Moris Machado MD [address] [place] [id number] [facility] Social History Tobacco Use Types Packs/Day Years [...] as of this encounter Progress Notes * Zari Gracia - 12/26/2024 2:51 PM EST [facility]NA CALL Which [facility] office is calling? [facility] Full name of caller: ouva The caller is A nurse Is the caller at the patients home?: no Reason for call: [facility]NA is requesting medicatio list faxed over and also woul jossue to discuss if PT should be taking his Doxycycline or not Does caller need an urgent call back? yes Was CONTACT Telephone # obtained above?: yes Fax #: [phone] documented in this encounter Plan of Treatment Upcoming Encounters Date Type Department Care Team (Late st Contact Info) Description 12/28/2024 11:20 AM EST Anticoagulation - Warfarin Visit [facility] [address] [phone] 01/31/2025 9:45 AM EST Office Visit Adult Medicine [address] [phone] Juan Velasquez PA [address] [place] [address] 03/21/2025 10:00 AM EDT Office Visit Endocrinology [address] [phone] Nicole Samson PA [facility] [place] [address] 06/18/2025 9:45 AM EDT Office Visit Adult [address] [phone] Moris Machado MD [address] [place] [address] documented as of this encounter Visit Diagnoses Not on filedocumented in this encounter Additional Health Concerns Assessment Noted Time PHQ-9 Depression Total Score: 7 12/10/19 25 11:19 AM EST A fall risk assessment has been complete d for the patient 12/10/2024 11:17 AM EST documented as of this encounter Care Teams Warehouse Forklift Operator Relationship Specialty Start Date End Date Moris Machado MD [address] [place] [phone] PCP - General Internal Medicine 10/09/24 documented as of this encounter
== END 2024-12-27 10:16 | disposition home or self-care (01) ==
PROVIDERS: PCP Internal Medicine; Visit Provider Hospitalist
DX: J44.1 Chronic obstructive pulmonary disease with (acute) exacerbation (principal); J96.11 Chronic respiratory failure with hypoxia; I27.20 Pulmonary hypertension, unspecified; J84.9 Interstitial pulmonary disease, unspecified; J43.9 Emphysema, unspecified; J84.10 Pulmonary fibrosis, unspecified; R91.1 Solitary pulmonary nodule
CPT/HCPCS: 99214; G2211

== ENCOUNTER → 2024-12-27 08:46 | Outpatient (BNVA) | payer OTHER, SELFPAY | PROVIDERS: PCP Internal Medicine; Visit Provider Hospitalist | DX: J44.1 Chronic obstructive pulmonary disease with (acute) exacerbation (principal); J96.11 Chronic respiratory failure with hypoxia; J84.10 Pulmonary fibrosis, unspecified; J43.9 Emphysema, unspecified; J84.9 Interstitial pulmonary disease, unspecified; I27.20 Pulmonary hypertension, unspecified; R91.1 Solitary pulmonary nodule; Z79.52 Long term (current) use of systemic steroids; Z99.81 Dependence on supplemental oxygen | CPT/HCPCS: 99212 ==

== ENCOUNTER 2025-02-08 13:01 | Outpatient (AMB) | payer OTHER, SELFPAY ==
[2025-02-08 13:07] VITALS: BP 114/60; PULSE 75; BMI 25.6
--- NOTE | 2025-02-08 13:07 | A.OFFVIS_ITS ---
Vital Signs 02/08/25 13:07 Height 5 ft 10 in Weight 178 lb 9.191 oz BMI 25.6 BP 114/60 Blood Pressure Location Lt brachial Position Sitting Pulse 75 Pulse Source Pulse Oximeter Intake Visit Reasons: f/u rs 02/05/25 Supervisor [employer] Required: No Commercial Counsel: Commercial Counsel Present Allergies No Known Allergies Allergy (Unknown, Verified 02/08/25 13:09) NOT APPLICABLE Medication List - Last Reconciled 02/08/25 by REBECCA GreerC adalimumab (Humira(CF) Pen) 40 mg subcut Q2W albuterol sulfate 2.5 mg inhalation Q4H PRN albuterol sulfate 90 mcg/actuation (Ventolin HFA) 2 puffs inhalation Q4H PRN bumetanide 1 mg PO BID cholecalciferol (vitamin D3) 50 mcg PO DAILY diltiazem HCl CD 240 mg See Protocol PO DAILY empagliflozin (Jardiance) 10 mg PO DAILY fluticasone furoate-vilanterol 200-25 mcg/dose (Breo Ellipta) 1 inh inhalation DAILY 30 days folic acid 400 mcg PO DAILY insulin glargine (Lantus Solostar U-100 Insulin) 20 units subcut BEDTIME metoprolol tartrate 50 mg PO BID nebulizers As directed nintedanib (Ofev) 150 mg PO Q12H 30 days nitroglycerin 0.4 mg sublingual Q5M PRN Oxygen Home Use As directed pantoprazole 40 mg PO DAILY@0630 prednisone 20 mg (2 x 10 mg) PO DAILY 30 days rosuvastatin 1 tab PO BEDTIME sacubitril-valsartan 49-51 mg (Entresto) 1 tab See Protocol PO BID sildenafil (pulm.hypertension) (Revatio) 40 mg (2 x 20 mg) PO TID 30 days timolol maleate 0.5% 1 drp ophthalmic (eye) DAILY tramadol 1 tab PO BID PRN warfarin 5 mg PO DAILY@1800 HPI HPI f/u rs 02/05/25: Details: Tommy is a 79-year-old male with past medical history of hypertension, advanced COPD, oxygen dependent, heart failure with preserved EF, SVT, paroxysmal AFib, CardioMEMS device in place who presents for follow-up. His last prior visit was 05/11/2024. Since then he has had at least 3 hospital admissions for COPD, respiratory failure. Today he reports he has been doing well since his last hospital discharge in November. He wears his oxygen continually. He sleeps with 1 pillow. He denies PND, orthopnea or edema. He does have an intermittent cough. No chest discomfort at rest or with activity. No heart palpitations, lightheadedness, presyncope, syncope, falls. He is mostly sedentary. Taking all meds as directed. is present. [facility] Medical History COPD exacerbation Pulmonary nodule 1 cm or greater in diameter Combined pulmonary fibrosis and emphysema (CPFE) (HFpEF) heart failure with preserved ejection fraction IPF (idiopathic pulmonary fibrosis) COPD (chronic obstructive pulmonary disease) Reactive airway disease Pulmonary hypertension Chronic respiratory failure CHF (congestive heart failure) ILD (interstitial lung disease) Acute exacerbation of CHF (congestive heart failure) SVT (supraventricular tachycardia) CHF exacerbation Chronic anticoagulation Atrial fibrillation Chronic hypoxemic respiratory failure Hypertension Rheumatoid arthritis Lymphadenopathy Surgical History Hx of colonoscopy Social History Household Members: Spouse and Children Housing: House Do you presently have visiting nurse or other home services: No Alcohol intake: former Comment: patient rings appropriately Patient Tobacco Use Status: Former Tobacco user Tobacco use type: Cigarette Years Smoked: 40 e-Cigarette/Vaping Use: Former Use Second Hand Smoke Exposure: No Advance Directives Date on File: 06/27/23 service: No Current occupational status: retired Review of Systems Const All systems reviewed & are unremarkable except as noted in HPI and below ENT Denies dizziness Card Details: wears O2 continually Denies chest pain, Denies chest pain at rest, Denies chest pain with activity, Denies rapid heart rate, Denies pedal edema, Denies edema, Denies leg edema, Denies lightheadedness, Denies palpitations, Reports dyspnea, Reports dyspnea on exertion and Denies orthopnea Resp Denies cough, Reports dyspnea and Reports dyspnea on exertion GI Denies hematochezia and Denies change in stool character Musc Denies abnormal gait, Denies limited range of motion, Denies muscle cramps, Denies muscle weakness, Denies numbness, Denies radiating pain into limb, Denies stiffness and Denies tingling Neuro Denies abnormal gait, Denies dizziness, Denies numbness and Denies tingling Endo Denies palpitations Physical Exam Vital Signs: Last Vital Signs Pulse 75 02/08/25 13:07 BP 114/60 02/08/25 13:07 BMI result Body Mass Index 25.6 Const General: cooperative, healthy appearing, comfortable and no acute distress Orientation/consciousness: patient oriented x3 Neck Neck: Yes normal visual inspection and Yes no JVD Resp Other: diminished lung sounds, wearing O2 4 liters Effort & Inspection: normal respiratory effort Auscultation: clear to auscultation bilaterally, no rales, no rhonchi and no wheezes Cardio Jugular venous distension: no JVD Rate: regular rate Rhythm: regular rhythm Heart sounds: S1 normal heart sound present, S2 normal heart sound present, no murmurs and no rubs Neuro General: patient oriented x3 Extrem General: Yes normal to inspection, No no pedal edema and No calf tenderness Psych Appearance: grossly normal Mental Status: mental status grossly normal Speech and movement: Normal speech and movement present Assessment & Plan Assessment & Plan (1) (HFpEF) heart failure with preserved ejection fraction: Code(s): I50.30 - Unspecified diastolic (congestive) heart failure Category: Medical Plan: History of heart failure with preserved EF. Known to have at least moderate pulmonary hypertension. CardioMEMS device in place to help with heart failure management. PA pressures are being monitored however recently he has been less compliant with this. He has had issues with respiratory failure with last hospital admission November 2024. His diuretics have remained unchanged and he continues on Bumex 1 mg b.i.d.. He is also on Jardiance, Entresto, metoprolol for heart failure management. Last echocardiogram in our system done on 11/30/2023 showing EF 60-65%, severe increase in the RV size, severe decrease in the RV systolic function, mild TR, severe pulmonary hypertension. He remains on sildenafil as ordered by his business continuity coordinator for the treatment of pulmonary hypertension. He does not appear fluid overloaded on exam today. Will have him continue meds without change. Continue O2 use. Obtain CardioMEMS readings at least 3 times weekly. Signs and symptoms of heart failure reviewed. Cardiology office visit 6 months, sooner if needed. (2) Atrial fibrillation: Code(s): I48.91 - Unspecified atrial fibrillation Category: Medical Plan: History of paroxysmal atrial fibrillation. Last EKG showing sinus rhythm with PVCs, right bundle branch block, rate 81. He is on both diltiazem and metoprolol XL for heart rate and rhythm control. His pulse is regular on examination today. He is on Coumadin for anticoagulation and says his home nurse checks his INRs readings and reports them to his PCP. No bleeding issues reported. No med changes made. (3) SVT (supraventricular tachycardia): Code(s): I47.1 - Supraventricular tachycardia Category: Medical Plan: Prior history of SVT. No recent events. Continues on metoprolol and diltiazem (4) Pulmonary hypertension: Comment: WHO group 1 Code(s): I27.20 - Pulmonary hypertension, unspecified Category: Medical Plan: As above. Follows with pulmonology (5) Hospital discharge follow-up: Code(s): Z09 - Encounter for follow-up examination after completed treatment for conditions other than malignant neoplasm Category: Medical Plan: As above. Plan Time spent on chart review, documentation, interview and assessment Medications: New diltiazem HCl CD 240 mg See Protocol PO DAILY 90 caps 3RF Coding Level of Care Code Est Pt Level 4 (41764) Complex EM visit Add On G2211 Diagnoses (HFpEF) heart failure with preserved ejection fraction I50.30 Atrial fibrillation I48.91 SVT (supraventricular tachycardia) I47.1 Pulmonary hypertension I27.20 Hospital discharge follow-up Z09 Time Spent (min) 30
--- OUTSIDE RECORDS SUMMARY | 2025-02-08 14:35 | XMS_ITS | Encounter Summary ---
Author Organization [facility] Address [address] [place] [address] Care Team Providers Care Salt Lifter Name Role Phone Moris Machado MD Primary Care Provider [phone] Encounter Details Date Type Department Care Team (Late Contact Info) Description 01/25/2025 Billing Patient Not Present Adult Medicine [address] [phone] Moris Machado MD [address] [place] [address] Social History Tobacco Use Types Packs/Day Years [...] Assigned at Male 12/11/2024 3:28 PM EST Legal Sex Male 5:02 AM EST Gender Identity Male 12/11/2024 3:28 PM EST Sexual Orientation Straight 12/11/2024 3: 28 PM EST documented as of this encounter Plan of Treatment Upcoming Encounters Date Type Department Care Team (Late Contact Info) Description 03/21/2025 10:00 AM EDT Office Visit [address] [phone] Nicole Samson PA [address] [place] [address] 06/19/2025 11:00 AM EDT Office Visit Adult Medicine [facility] [address] [place] [phone] Juan Velasquez PA [address] [place] [address] documented as of this encounter Visit Diagnoses Not on filedocumented in this encounter Additional Health Concerns Assessment Noted Time PHQ-9 Depression Total Score: 7 12/10/19 25 11:19 AM EST A fall risk assessment has been complete d for the patient 12/10/2024 11:17 AM EST documented as of this encounter Care Teams Salt Lifter Relationship Specialty Start Date End Date Moris Machado MD [address] [place] [address] PCP - General Internal Medicine 10/09/24 documented as of this encounter
--- OUTSIDE RECORDS SUMMARY | 2025-02-08 14:35 | XMS_ITS | Encounter Summary ---
Author Organization [facility] Address [address] [place] [address] Care Team Providers Care Manager Beverage Name Role Phone Moris Machado MD Primary Care Provider [phone] Encounter Details Date Type Department Care Team (Latest Contact Info) Description 01/22/2025 Anticoagulation - Warfarin Visit Coumadin Clinic - [address] [phone] Tiffanie Saba, KELLIE Atrial fibrillation, unspecified type [...] Care Team (Late st Contact Info) Description 03/21/2025 10:00 AM EDT Office Visit Endocrinology - [address] [phone] Nicole Samson PA [address] [facility] [place] [address] 06/19/2025 11:00 AM EDT Office Visit Adult Medicine [facility] [address] [place] [phone] Juan Velasquez PA [address] [place] [address] documented as of this encounter Procedures Procedure Name Priority Date/Time Associated Diagnosis Comments PROTHROMBIN TIME WITH INR Routine 01/22/2025 documented in this encounter Results * Prothrombin time with INR (01/22/2025) INR 2.8 Comment:Comfort + Prothrombin Time POC Blood Venous blood specimen / Unknown 01/22/2025 us Moris Machado MD LAB BLOOD ORDERABLES Final Resu lt documented in this encounter Visit Diagnoses Diagnosis Atrial fibrillation, unspecified type (CMS/[facility])- Primary termination clerk (current) use of anticoagulants Long-term (current) use of anticoagulants documented in this encounter Additional Health Concerns Assessment Noted Time PHQ-9 Depression Total Score: 7 12/10/19 11:19 AM EST A fall risk assessment has been complete d for the patient 12/10/2024 11:17 AM EST documented as of this encounter Care Teams Manager Beverage Relationship Specialty Start Date End Date Moris Machado MD [address] [place] [address] PCP - General Internal Medicine 10/09/24 documented as of this encounter
--- OUTSIDE RECORDS SUMMARY | 2025-02-08 14:35 | XMS_ITS | Encounter Summary ---
Author Organization [facility] Address [address] [place] [address] Care Team Providers Care Valve Lapper Name Role Phone Moris Machado MD Primary Care Provider [phone] Reason for Visit * Reason Comments Hospital Follow-up Encounter Details Date Type Department Care Team (Late st Contact Info) Description 01/17/2025 10:30 AM EST Office Visit Adult Medicine [address] [phone] Moris Machado MD [address] [place] [phone] Acute on chronic respiratory failure, unspecified whether with hypoxia or hypercapnia (CMS/HCC) (Primary Dx); Hypokalemia; Primary hypertension; Type 2 diabetes mellitus with chronic kidney disease, with long-term current use of insulin, unspecified CKD stage (CMS/HCC); Pure hypercholesterolemia; Encounter for long-term (current) use of medications; Heart failure with preserved ejection fraction, unspecified HF chronicity (CMS/HCC); Diabetes mellitus due to underlying condition, uncontrolled, with hyperglycemia (CMS/HCC); Chronic hypoxemic respiratory failure (CMS/HCC); ILD (interstitial lung disease) (CMS/HCC); Chronic obstructive pulmonary disease, unspecified COPD type (CMS/HCC) Social History Tobacco Use Types Packs/Day Years [...] PM EST documented as of this encounter Last Filed Vital Signs Vital Sign Reading Time Taken Comments Blood Pressure 120/67 01/17/2025 10:23 AM EST Pulse 80 01/17/2025 10:23 AM EST Temperature 35.8 ??C (96.4 ??F) 01/17/2025 10:[address] Respiratory Rate 16 01/17/2025 10:23 AM EST Oxygen Saturation - - Inhaled Oxygen Concentration - - Weight 79.4 kg (175 lb) 01/17/2025 10:23 AM EST Height - - Body Mass Index 24.41 12/18/2024 7:40 AM EST documented in this encounter Ordered Prescriptions Prescription Sig Dispense Quantity Refills Last Filled Start Date End Date traMADoL (ULTRAM) 50 mg tablet Take 1 tablet (50 mg total) by mouth 2 (two) times a day if needed for severe pain. for pain Max Daily Amount: 100 mg 56 tablet 01/17/2025 01/17/2025 pantoprazole (PROTONIX) 40 mg EC tablet Take 1 tablet (40 mg total) by mouth 2 (two) times a day. Do not crush, chew, or split. 90 each 1 01/17/2025 01/17/2025 Breo Ellipta 200-25 mcg/dose inhaler Inhale 1 puff by mouth 1 (one) time each day. 3 each 1 01/17/2025 01/17/2025 documented in this encounter Progress Notes * Moris Machado MD - 01/17/2025 10:30 AM EST CHIEF COMPLAINT: Hospital Follow-up IDENTIFIER: Tommy Love is a 79 y.o. old male. HPI: Pt with hx of ILD and chronic hypoxemic respiratory failure on 4lnc ,HFpEF,AFIB,CAD,HTN,Pulm HTN,,SVT,diabetes A1c 8.1 09/2024 Pt was admitted to the [facility] from 12/22-12/24/2024 Pt presented with dyspnea and wheezing. Pt dx with acute on chronic hypoxemic respiratory failure 2nd to copd exacerbation. Pt had hypokalemia which was replaced. Pt was treated for the copd exacerbation with prednisone x 5 days and doxy 100 mg po bid x 5 days Pt was noted to be euvolemic pt continued on outpatient dose of entresto,jardiance and bumex Pt today notes breathing is back to baseline pt 4 lnc at rest 5-6 with ambulation Pt is on ofev, breo-ellipta Pt to f/u with pulm next month (sukumar) Pt follows with cardiology this month [facility] Pt notes sugars have been controlled not elevated Pt is on jardiance 25mg,lantus 20 units last A1c elevated at 8.1 pt to see endo 03/21/2025 ROS: GENERAL: Negative for malaise, significant weight loss and fever RESPIRATORY: See HPI CARDIOVASCULAR: Negative for chest pain, leg swelling and palpitations GI: pt with gerd pt notes increased gas and nausea pt on omeprazole 20 mg pt noted better control with protonix in the past PAST MEDICAL HISTORY: Patient Active Problem List Diagnosis Date Noted Atrial fibrillation ([facility]) 10/26/2024 halfway (current) use of anticoagulants 10/26/2024 Diabetes mellitus due to underlying condition, uncontrolled, with hyperglycemia ([facility]) 11/12/2023 Secondary diabetes mellitus ([facility]) 11/12/2023 (HFpEF) heart failure with preserved ejection fraction ([facility]) 08/11/2023 Chronic hypoxemic respiratory failure ([facility]) 08/11/2023 SOB (shortness of breath) 08/11/2023 SVT (supraventricular tachycardia) ([facility]) 08/11/2023 Renal osteodystrophy 08/04/2023 Stage 3b chronic kidney disease ([facility]) 08/04/2023 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[facility]) 08/04/2023 Heart failure ([facility]) 06/26/2023 Pulmonary HTN ([facility]) 05/19/2023 Influenza 03/05/2022 Lymphadenopathy 03/05/2022 ILD (interstitial lung disease) ([facility]) 11/30/2021 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 [place] (myocardial infarction) 06/12/2015 Glaucoma 06/05/2012 A-fib ([facility]) 03/16/2012 CAD (coronary artery disease) 03/16/2012 HLD (hyperlipidemia) 03/16/2012 HTN (hypertension) 03/16/2012 Seropositive rheumatoid arthritis ([facility]) 03/16/2012 SOCIAL HISTORY: Social History Tobacco Use Smoking status: Former Current packs/day: 0.00 Average packs/day: 1 pack/day for 11.0 years (11.0 ttl pk-yrs) Types: Cigarettes Start date: 11/28/1991 Quit date: 11/28/2002 Years since quittin.1 Smokeless tobacco: Never Substance Use Topics Alcohol use: No FAMILY HISTORY: Family Status Relation Name Status Neg Hx (Not Specified) No partnership data on file Family History Problem Relation Name Age of Onset Coronary artery disease Neg Hx ACTIVE MEDICATIONS: No outpatient medications have been marked as taking for the 01/17/25 encounter (Appointment) with Moris Machado MD. ALLERGIES: Patient has no known allergies. PHYSICAL EXAM: Blood pressure 120/67, pulse 80, temperature 35.8 ??C (96.4 ??F), resp. rate 16, weight 79.4 kg (175 lb). There is no height or weight on file to calculate BMI. Plan is deferred until next visit APPEARANCE: Alert and in no acute distress EYES: PERRLA, conjunctiva and sclera normal HEART: RRR with normal S1 and S2, no murmurs, no gallops, no JVD appreciated LUNG: clear to auscultation bilaterally EXTREMITIES: Extremities warm and well perfused without clubbing, cyanosis, or edema LABS: none IMPRESSION: 1. Acute on chronic respiratory failure, unspecified whether with hypoxia or hypercapnia ([facility]) 2. Hypokalemia 3. Primary hypertension 4. Type 2 diabetes mellitus with chronic kidney disease, with long-term current use of insulin, unspecified CKD stage ([facility]) 5. Pure hypercholesterolemia 6. Encounter for long-term (current) use of medications 7. Heart failure with preserved ejection fraction, unspecified HF chronicity ([facility]) 8. Diabetes mellitus due to underlying condition, uncontrolled, with hyperglycemia ([facility]) 9. Chronic hypoxemic respiratory failure ([facility]) 10. ILD (interstitial lung disease) ([facility]) 11. Chronic obstructive pulmonary disease, unspecified COPD type ([facility]) PLAN: Pt with hospital stay last month for acute on chronic hypoxemic respiratory failure 2nd to copd exacerbation. Pt was treated with doxy and prednisone. Pt notes back to baseline pt also with ILD. Pt on OFEV and breo pt on chronic 02. Pt has f/u with pulm next month Pt with HFpEF pt is euvolemic on exam today pt to continue current regimen of jardiance entrestio and bumex. Will check bmp to f/u on pt low potassium in house and to assess renal function and lytes Pt with diabetes pt has A1c pending from today pt follows with endo next appointment 02/2025 pt to continue current regimen I will update microalbuminuria pt with high cholesterol on a statin will check lipid profile and lft's last ldl 40 pt to continue current statin therapy Pt with nausea and gas In setting of gerd I will change omeprazole to protonix 40 mg pt has f/u scheduled for 01/31/2025 with care team pt advised to keep this appointment if symptoms do not approve otherwise he can cancel and f/u with me as scheduled 05/2025 No orders of the defined types were placed in this encounter. ADDITIONAL ORDERS: None Moris Machado MD on 01/17/2025 at 9:15 AM EST documented in this encounter Plan of Treatment Upcoming Encounters Date Type Department Care Team (Late st Contact Info) Description 03/21/2025 10:00 AM EDT Office Visit Endocrinology [address] [phone] Nicole Samson PA [address] [place] [address] 06/19/2025 11:00 AM EDT Office Visit Adult Medicine [facility] - [address] [phone] Juan Velasquez PA [address] [place], [place] Scheduled Orders Name Type Priority Associated Diagnoses Orde r Schedule Lipid panel with reflex to direct LDL Lab Routine Pure hypercholesterolemia 1 Occurrences starting 01/17/2025 until 01/17/2026 Comprehensive metabolic panel Lab Routine Hypokalemia Primary hypertension Type 2 diabetes mellitus with chronic kidney disease, with long-term current use of insulin, unspecified CKD stage ([facility]) Encounter for long-term (current) use of medications 1 Occurrences starting 01/17/2025 until 01/17/2026 Microalbumin creatinine urine ratio Lab Routine Type 2 diabetes mellitus with chronic kidney disease, with long-term current use of insulin, unspecified CKD stage ([facility]) 1 Occurrences starting 01/17/2025 until 01/17/2026 documented as of this encounter Visit Diagnoses Diagnosis Acute on chronic respiratory failure, unspecified whether with hypoxia or hypercapnia ([facility])- Primary Hypokalemia Hypopotassemia Primary hypertension Unspecified essential hypertension Type 2 diabetes mellitus with chronic kidney disease, with long-term current use of insulin, unspecified CKD stage ([facility]) Pure hypercholesterolemia Encounter for long-term (current) use of medications Encounter for long-term (current) use of other medications Heart failure with preserved ejection fraction, unspecified HF chronicity ([facility]) Diabetes mellitus due to underlying condition, uncontrolled, with hyperglycemia ([facility]) Chronic hypoxemic respiratory failure ([facility]) Chronic respiratory failure ILD (interstitial lung disease) ([facility]) Postinflammatory pulmonary fibrosis Chronic obstructive pulmonary disease, unspecified COPD type ([facility]) documented in this encounter Discontinued Medications Medication Sig Discontinue Reason Start Date End Da te Breo Ellipta 200-25 mcg/dose inhaler Inhale 1 puff by mouth 1 (one) time each day. Reorder 09/19/2024 01/17/2025 omeprazole (PriLOSEC) [address] capsule Take 1 capsule (20 mg total) by mouth 1 (one) time each day. 01/09/2025 01/17/2025 traMADoL (ULTRAM) 50 mg tablet Take 1 tablet (50 mg total) by mouth 2 (two) times a day if needed for severe pain. for pain Max Daily Amount: 100 mg Reorder 10/30/2024 01/17/2025 documented as of this encounter Additional Health Concerns Assessment Noted Time PHQ-9 Depression Total Score: 7 12/10/19 25 11:19 AM EST A fall risk assessment has been complete d for the patient 12/10/2024 11:17 AM EST documented as of this encounter Care Teams Valve Lapper Relationship Specialty Start Date End Date Moris Machado MD [address] [place] [id number] PCP - General Internal Medicine 10/09/24 documented as of this encounter
--- OUTSIDE RECORDS SUMMARY | 2025-02-08 14:35 | XMS_ITS | Encounter Summary ---
Author Organization [facility] Address [address] [place] [address] Care Team Providers Care Medicine Teacher Name Role Phone Moris Machado MD Primary Care Provider [phone] Encounter Details Date Type Department Care Team (Late Contact Info) Description 01/23/2025 Billing Patient Not Present Adult Medicine [address] [phone] Moris Machado MD [address] [place] [address] Social History Tobacco Use Types Packs/Day Years [...] Description 03/21/2025 10:00 AM EDT Office Visit [address] [phone] Nicole Samson PA [address] [place] [address] 06/19/2025 11:00 AM EDT Office Visit Adult Medicine [facility] [address] [place] [phone] Juan Velasquez PA [address] [place] [address] documented as of this encounter Visit Diagnoses Not on filedocumented in this encounter Additional Health Concerns Assessment Noted Time PHQ-9 Depression Total Score: 7 12/10/19 25 11:19 AM EST A fall risk assessment has been complete d for the patient 12/10/2024 11:17 AM EST documented as of this encounter Care Teams Medicine Teacher Relationship Specialty Start Date End Date Moris Machado MD [address] [place] [address] PCP - General Internal Medicine 10/09/24 documented as of this encounter
--- OUTSIDE RECORDS SUMMARY | 2025-02-08 14:35 | XMS_ITS | Encounter Summary ---
Author Organization [facility] Address [address] [address] Phone Care Team Providers Care Battery Container Finishing Hand Name Role Phone Moris Machado MD Primary Care Provider [phone] Reason for Visit * Reason Comments Med Refill Encounter Details Date Type Department Care Team (Late Contact Info) Description 01/22/2025 Refill [facility] [address] [place] [address] Davidson Quinonez MD [address] [address] Social History Tobacco Use Types Packs/Day Years [...] Department Care Team (Late Contact Info) Description 08/26/2025 2:00 PM EDT Office Visit [facility] [address] [place] [address] Davidson Quinonez MD [address] [address] documented as of this encounter Visit Diagnoses Not on filedocumented in this encounter Care Teams Battery Container Finishing Hand Relationship Specialty Start Date End Date Moris Machado MD [address] [place] [address] PCP - General Internal Medicine 04/26/23 documented as of this encounter
--- OUTSIDE RECORDS SUMMARY | 2025-02-08 14:35 | XMS_ITS | Encounter Summary ---
Author Organization [facility] Address [address] [place] [address] Care Team Providers Care Core Java Engineer Name Role Phone Moris Machado MD Primary Care Provider [phone] Encounter Details Date Type Department Care Team (Late Contact Info) Description 01/25/2025 Billing Patient Not Present Adult Medicine [address] [phone] Moris Machado MD [address] [place] [address] Social History Tobacco Use Types Packs/Day Years [...] Description 03/21/2025 10:00 AM EDT Office Visit [address] [phone] Nicole Samson PA [address] [place] [address] 06/19/2025 11:00 AM EDT Office Visit Adult Medicine [facility] [address] [place] [phone] Juan Velasquez PA [address] [place] [address] documented as of this encounter Visit Diagnoses Not on filedocumented in this encounter Additional Health Concerns Assessment Noted Time PHQ-9 Depression Total Score: 7 12/10/19 25 11:19 AM EST A fall risk assessment has been complete d for the patient 12/10/2024 11:17 AM EST documented as of this encounter Care Teams Core Java Engineer Relationship Specialty Start Date End Date Moris Machado MD [address] [place] [address] PCP - General Internal Medicine 10/09/24 documented as of this encounter
--- OUTSIDE RECORDS SUMMARY | 2025-02-08 14:35 | XMS_ITS | Encounter Summary ---
Author Organization [facility] Address [address] [place] [address] Care Team Providers Care Consumer Services Consultant Name Role Phone Moris Machado MD Primary Care Provider [phone] Encounter Details Date Type Department Care Team (Latest Contact Info) Description 01/15/2025 Anticoagulation - Warfarin Visit [facility] - [address] [phone] Xiomara Mcintyre LPN Atrial fibrillation, unspecified type (CMS/HCC) (Primary Dx); MCC (current) use of anticoagulants Social History Tobacco [...] 10:00 AM EDT Office Visit Endocrinology - [address] [phone] Nicole Samson PA [address] [facility] [place] [address] 06/19/2025 11:00 AM EDT Office Visit Adult Medicine [facility] [address] [place] [phone] Juan Velasquez PA [address] [place] [address] documented as of this encounter Procedures Procedure Name Priority Date/Time Associated Diagnosis Comments PROTHROMBIN TIME WITH INR Routine 01/15/2025 documented in this encounter Results * Prothrombin time with INR (01/15/2025) INR 1.6 Comment:[facility] Prothrombin Time POC Blood Venous blood specimen / Unknown 01/15/2025 us Moris Machado MD LAB BLOOD ORDERABLES Final Resu lt documented in this encounter Visit Diagnoses Diagnosis Atrial fibrillation, unspecified type (CMS/HCC)- Primary 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
--- OUTSIDE RECORDS SUMMARY | 2025-02-08 14:35 | XMS_ITS | Encounter Summary ---
Author Organization [facility] Address [address] [place] [address] Care Team Providers Care Rn Wound Name Role Phone Moris Machado MD Primary Care Provider [phone] Reason for Visit * Reason Onset Date Comments Medication Problem 01/15/2025 Encounter Details Date Type Department Care Team ([facility] st Contact Info) Description 01/15/2025 Telephone [place] [address] [place], [place] [phone] Nicole Samson PA [address] [place] [address] Medication Problem Social History Tobacco Use Types Packs/Day Years [...] PM EST documented as of this encounter Ordered Prescriptions Prescription Sig Dispense Quantity Refills Last Filled Start Date End Date flash glucose sensor (FreeStyle Martha 2 Sensor) kit Change sensor change every 14 days 2 EA 11 01/16/2025 documented in this encounter Progress Notes * CONNIE Contreras - 01/16/2025 12:35 PM EST Ordered * Lobo Regalado - 01/15/2025 1:15 PM EST Medication Problem: What is the name of the medication patient is having a problem with?: Freestyle martha sensors What is the problem?: Rep Jessica from [facility] calling stating the pt family members are having trouble helping the pt with the freestlye martha 3 sensors and would like to go back freestyle 2 sensors. It has been 2 weeks he hasn't had a cgm but he has been doing finger sticks. If any further questionscall Jessica at [phone] Who is calling about the problem? : [facility] Is this a NEW medication?: no How long has the patient been taking this medication? N/A Who prescribed this medication for the patient? Nicole Samson Who is patients PCP?: Moris Machado MD Payor: [facility] / Plan: [facility] CARE / Product Type: *No Product type* / documented in this encounter Plan of Treatment Upcoming Encounters Date Type Department Care Team (Late st Contact Info) Description 03/21/2025 10:00 AM EDT Office Visit Endocrinology [address] [phone] Nicole Samson PA [address] [place] [address] 06/19/2025 11:00 AM EDT Office Visit Adult Medicine [address] [phone] Juan Velasquez PA [address] [place] [address] documented as of this encounter Visit Diagnoses Not on filedocumented in this encounter Additional Health Concerns Assessment Noted Time PHQ-9 Depression Total Score: 7 12/10/19 25 11:19 AM EST A fall risk assessment has been complete d for the patient 12/10/2024 11:17 AM EST documented as of this encounter Care Teams Rn Wound Relationship Specialty Start Date End Date Moris Machado MD [address] [place] [address] PCP - General Internal Medicine 10/09/24 documented as of this encounter
--- OUTSIDE RECORDS SUMMARY | 2025-02-08 14:35 | XMS_ITS | Encounter Summary ---
Author Organization [facility] Address [address] [place] [address] Care Team Providers Care Legend Maker Name Role Phone Moris Machado MD Primary Care Provider [phone] Reason for Visit * Reason Onset Date Comments faxed order 01/21/2025 [facility] order #[id number], #[id number], #[id number], #[id number] Encounter Details Date Type Department Care Team (Late st Contact Info) Description 01/21/2025 Telephone Adult Medicine [address] [phone] Silvana Torres MA faxed order ([facility] order #[id number], #[id number], #[id number], #[id number]) Social History Tobacco Use Types Packs/Day Years [...] PM EST documented as of this encounter Progress Notes * Silvana Torres MA - 01/21/2025 8:05 PM EST Received orders from [facility] order #[id number], #[id number], #[id number], #[id number]. Please sign and fax to [phone] documented in this encounter Plan of Treatment Upcoming Encounters Date Type Department Care Team (Late st Contact Info) Description 03/21/2025 10:00 AM EDT Office Visit Endocrinology [address] [phone] Nicole Samson PA [address] [place] [address] 06/19/2025 11:00 AM EDT Office Visit Adult Medicine [address] [phone] Juan Velasquez PA [address] [place], [place] documented as of this encounter Visit Diagnoses Not on filedocumented in this encounter Additional Health Concerns Assessment Noted Time PHQ-9 Depression Total Score: 7 12/10/19 25 11:19 AM EST A fall risk assessment has been complete d for the patient 12/10/2024 11:17 AM EST documented as of this encounter Care Teams Legend Maker Relationship Specialty Start Date End Date Moris Machado MD [address] [place] [address] PCP - General Internal Medicine 10/09/24 documented as of this encounter
--- OUTSIDE RECORDS SUMMARY | 2025-02-08 14:35 | XMS_ITS | Encounter Summary ---
Author Organization [facility] Address [address] [place] [address] Care Team Providers Care Reports Analysis Manager Name Role Phone Moris Machado MD Primary Care Provider [phone] Encounter Details Date Type Department Care Team (Latest Contact Info) Description 01/28/2025 Anticoagulation - Warfarin Visit [facility] - [address] [phone] Tiffanie Saba, KELLIE Atrial fibrillation, unspecified type (CMS/HCC) (Primary Dx); detention (current) use of anticoagulants Social History Tobacco [...] 10:00 AM EDT Office Visit Endocrinology - [address] [phone] Nicole Samson PA [address] [facility] [place] [address] 06/19/2025 11:00 AM EDT Office Visit Adult Medicine [facility] [address] [place] [phone] Juan Velasquez PA [address] [place] [address] documented as of this encounter Procedures Procedure Name Priority Date/Time Associated Diagnosis Comments PROTHROMBIN TIME WITH INR Routine 01/28/2025 documented in this encounter Results * Prothrombin time with INR (01/28/2025) INR 2.3 Comment:[facility] + Prothrombin Time POC Blood Venous blood specimen / Unknown 01/28/2025 Historical Provider LAB BLOOD ORDERABLES Vero l Result documented in this encounter Visit Diagnoses Diagnosis Atrial fibrillation, unspecified type (CMS/HCC)- Primary ferry terminal agent (current) use of anticoagulants Long-term (current) use of anticoagulants documented in this encounter Additional Health Concerns Assessment Noted Time PHQ-9 Depression Total Score: 7 12/10/19 25 11:19 AM EST A fall risk assessment has been complete d for the patient 12/10/2024 11:17 AM EST documented as of this encounter Care Teams Reports Analysis Manager Relationship Specialty Start Date End Date Moris Machado MD [address] [place] [address] PCP - General Internal Medicine 10/09/24 documented as of this encounter
--- OUTSIDE RECORDS SUMMARY | 2025-02-08 14:35 | XMS_ITS | Encounter Summary ---
Author Organization [facility] Address [address] [place] [address] Care Team Providers Care Line Painting Machine Operator Name Role Phone Moris Machado MD Primary Care Provider [phone] Reason for Visit * Reason Onset Date Comments faxed order 01/16/2025 Faxed order rece ived from [facility] [id number] please sign and fax to [phone]./ Encounter Details Date Type Department Care Team (Late st Contact Info) Description 01/16/2025 Telephone Adult Medicine [address] [phone] Moris Machado MD [address] [place] [address] faxed order (Faxed order received from [facility] [id number] please sign and fax to [phone]./) Social History Tobacco Use Types Packs/Day Years [...] Description 03/21/2025 10:00 AM EDT Office Visit [address] [phone] Nicole Samson PA [address] [place] [address] 06/19/2025 11:00 AM EDT Office Visit Adult Medicine [facility] - [address] [phone] Juan Velasquez PA [address] [place] [address] documented as of this encounter Visit Diagnoses Not on filedocumented in this encounter Additional Health Concerns Assessment Noted Time PHQ-9 Depression Total Score: 7 12/10/19 25 11:19 AM EST A fall risk assessment has been complete d for the patient 12/10/2024 11:17 AM EST documented as of this encounter Care Teams Line Painting Machine Operator Relationship Specialty Start Date End Date Moris Machado MD [address] [place] [address] PCP - General Internal Medicine 10/09/24 documented as of this encounter
--- OUTSIDE RECORDS SUMMARY | 2025-02-08 14:36 | XMS_ITS | Encounter Summary ---
Author Organization [facility] Address [address] [place] [address] Care Team Providers Care Pharmacy Customer Care Specialist Name Role Phone Moris Machado MD Primary Care Provider [phone] Reason for Visit * Reason Onset Date Comments Request For Order(s) 12/28/2024 [facility] order # [id number] received and placed in provider's bin. Please sign and fax back to [phone] Encounter Details Date Type Department Care Team (Late st Contact Info) Description 12/28/2024 Telephone Adult [address] [phone] Moris Machado MD [address] [place] [address] Request For Order(s) ([facility] order # [id number] received and placed in provider's bin. Please sign and fax back to [phone]) Social History Tobacco Use Types Packs/Day Years [...] as of this encounter Progress Notes * Bharati Staples - 12/28/2024 1:07 PM EST [facility] order # [id number] received and placed in provider's bin. Please sign and fax back to [phone] documented in this encounter Plan of Treatment Upcoming Encounters Date Type Department Care Team (Late st Contact Info) Description 03/21/2025 10:00 AM EDT Office Visit [address] [phone] Nicole Samson PA 305 [place] [address] 06/19/2025 11:00 AM EDT Office Visit [place] [facility] [place] - [address] [phone] Juan Velasquez PA [address] [place], [place] documented as of this encounter Visit Diagnoses Not on filedocumented in this encounter Additional Health Concerns Assessment Noted Time PHQ-9 Depression Total Score: 7 12/10/19 25 11:19 AM EST A fall risk assessment has been complete d for the patient 12/10/2024 11:17 AM EST documented as of this encounter Care Teams Pharmacy Customer Care Specialist Relationship Specialty Start Date End Date Moris Machado MD [address] [place] [address] PCP - General Internal Medicine 10/09/24 documented as of this encounter
--- OUTSIDE RECORDS SUMMARY | 2025-02-08 14:36 | XMS_ITS | Encounter Summary ---
Author Organization [facility] Address [address] [place] [address] Care Team Providers Care Argon Tester Name Role Phone Moris Machado MD Primary Care Provider [phone] Encounter Details Date Type Department Care Team (Late Contact Info) Description 02/07/2025 Billing Patient Not Present Adult Medicine [address] [phone] Moris Machado MD [address] [place] [address] Social History Tobacco Use Types Packs/Day Years [...] Description 03/21/2025 10:00 AM EDT Office Visit [address] [phone] Nicole Samson PA 305 [place] [address] 06/19/2025 11:00 AM EDT Office Visit Adult Medicine [facility] [address] [place] [phone] Juan Velasquez PA 4 [place] [address] documented as of this encounter Visit Diagnoses Not on filedocumented in this encounter Additional Health Concerns Assessment Noted Time PHQ-9 Depression Total Score: 7 12/10/19 25 11:19 AM EST A fall risk assessment has been complete d for the patient 12/10/2024 11:17 AM EST documented as of this encounter Care Teams Argon Tester Relationship Specialty Start Date End Date Moris Mahcado MD [address] [place] [address] PCP - General Internal Medicine 10/09/24 documented as of this encounter
--- OUTSIDE RECORDS SUMMARY | 2025-02-08 14:36 | XMS_ITS | Encounter Summary ---
Author Organization [facility] Address [address] [place] [address] Care Team Providers Care Plant Puller Name Role Phone Moris Machado MD Primary Care Provider [phone] Encounter Details Date Type Department Care Team (Late Contact Info) Description 02/07/2025 Billing Patient Not Present Adult Medicine [address] [phone] Moris Machado MD [address] [place] [address] Social History Tobacco Use Types Packs/Day Years [...] Description 03/21/2025 10:00 AM EDT Office Visit [address] [phone] Nicole Samson PA 305 [place] [address] 06/19/2025 11:00 AM EDT Office Visit Adult Medicine [facility] [address] [place] [phone] Juan Velasquez PA 4 [place] [address] documented as of this encounter Visit Diagnoses Not on filedocumented in this encounter Additional Health Concerns Assessment Noted Time PHQ-9 Depression Total Score: 7 12/10/19 25 11:19 AM EST A fall risk assessment has been complete d for the patient 12/10/2024 11:17 AM EST documented as of this encounter Care Teams Plant Puller Relationship Specialty Start Date End Date Moris Machado MD [address] [place] [address] PCP - General Internal Medicine 10/09/24 documented as of this encounter
--- OUTSIDE RECORDS SUMMARY | 2025-02-08 14:36 | XMS_ITS | Data Portability ---
Author Organization [facility] Address [address] [place] [address] Care Team Providers Care Medical Records Secretary Name Role Phone HIM CCA OTHER Assessment Encounter Date Assessment Date Assessment LastModified by Organization Details LastModified Time 12/19/2024 12/19/2024 I provided real -time medical direction via phone for this encounter and was available for additional phone-based assistance as needed. I have reviewed and agree with the Assessment and Plan as documented by the Forming Machine Operator. Patient given the opportunity to ask questions. Our service contacted for an assessment of: Shortness of breaths As per above, patient was complaining of several hours of being short of breath called the service for evaluation. On usual O2 at home. No change in O2 saturations. Denies cough, fever, chills, chest pain, dyspnea on exertion. Per firer glost kiln on the scene, vital signs are stable [...] Available No t Available FreeStyle Martha [address] [place] USE DIRECTED active Not Available Not Available [...] Address Organization Details Last Updated DateTime 5 34898.3 76 g 72 /min 91 % 91 [...] SNOMED-CT Code Diagnosis ICD10 Code Diagnosis Note 07406 Nithya Blair MD Main - [facility] [address] [place] [address] 12/19/2024 20:48:25 12/19/2024 23:46:42 Dyspnea [id number] R06.00 Health Concerns Section Related Observation LastModified by Organization Detai ls LastModified Time None Recorded Concern Status LastModified by Organization Details LastModified Time None Recorded Advance Directives Directive None Recorded Payers Encounter Date Sequence Insurance Name Policy Number Policy Coto Covered Member ID Coto Member ID Guarantor Name 12/19/2024 1 [facility] - DOS ON OR AFTER 2023 - DUAL ELIGIBLE - FDC OPTIONS AND ONE CARE (MEDICARE REPLACEMENT/ADV ANTAGE - HMO) Tommy Love [id number] Tommy Love Notes Date Note Type Note [...] Allergies Reviewed at 12/19/2024 - 16:51 Comments: Claims Account Specialist verified the name//address and phone number. Pt [...] .................. .................. .................. .................. .................. .................. ............... Forming Machine Operator Note From Tobias Asif: Pt co episode [...] rhonchi detectable. Good skin color and turgor. [facility] contacted and advised to monitor symptoms. Education on symptoms indicating the ER. Pt advised to follow up with PCP in regards to anxiety issues. Pt sons sts he will call PCP about it tomorrow. Son translated during visit. Pt and family pleasant and cooperative. Pt signed consent during visit and was uploaded. .................. .................. .................. .................. .................. .................. .................. ............... [facility] Consulted: Nithya Blair .................. .................. .................. .................. .................. .................. .................. ............... Disposition: Fulfilled Nithya Blair MD [address] [facility],[address], [place], [address], [employer] - rumr: turn off the lightsADE, SHIR[place] 12/19/2024 20:54:28
--- OUTSIDE RECORDS SUMMARY | 2025-02-08 14:36 | XMS_ITS | Encounter Summary ---
Author Organization [facility] Address [address] [place] [address] Care Team Providers Care Animal Researcher Name Role Phone Moris Machado MD Primary Care Provider [phone] Reason for Visit * Reason Onset Date Comments prior authorization 01/30/2025 Encounter Details Date Type Department Care Team ([facility] st Contact Info) Description 01/30/2025 Telephone [place] [address] [place], [place] [phone] Nicole Samson PA [address] [facility] [place] [id number] prior authorization Social History Tobacco Use Types Packs/Day Years [...] encounter Progress Notes * CONNIE Contreras - 01/31/2025 3:06 PM EST This is being handled by [facility]. There is documentation from them that this was already delivered * Rina Roche - 01/30/2025 2:46 PM EST Prior Authorization for Medication-do not complete and send this encounter unless you have the fax from the pharmacy. Is this a Cover My Meds request: Yes -- Keenan Code [id number] Name of Medication FREESTYLE FER 2 SENSOR How does patient take this med? Change sensor change every 14 days What Pharmacy did the fax come from: [place] [id number] Pharmacy fax #: [phone] Help desk phone: [phone] documented in this encounter Plan of Treatment Upcoming Encounters Date Type Department Care Team (Late st Contact Info) Description 03/21/2025 10:00 AM EDT Office Visit [address] [phone] Nicole Samson PA [address] [place] [address] 06/19/2025 11:00 AM EDT Office Visit Adult Medicine [address] [phone] Juan Velasquez PA [address] [place], [place] documented as of this encounter Visit Diagnoses Not on filedocumented in this encounter Additional Health Concerns Assessment Noted Time PHQ-9 Depression Total Score: 7 12/10/19 25 11:19 AM EST A fall risk assessment has been complete d for the patient 12/10/2024 11:17 AM EST documented as of this encounter Care Teams Animal Researcher Relationship Specialty Start Date End Date Moris Machado MD [address] [place] [address] PCP - General Internal Medicine 10/09/24 documented as of this encounter
--- OUTSIDE RECORDS SUMMARY | 2025-02-08 14:36 | XMS_ITS | Clinical Summary ---
Author Organization [facility] Address [address] [facility] [address] [place] [address] Phone Care Team Providers Care Promotion Officer Name Role Phone Moris Machado MD Primary Care Provider [phone] Allergies No known active allergies Medications warfarin (COUMADIN) 2.5 MG tablet 5 mg 06/26/20 23 Active traMADol (ULTRAM) 50 MG tablet Take 50 mg by mouth 07/22/20 23 Active timolol (TIMOPTIC) 0.5 % ophthalmic solution INSTILL 1 DROP IN BOTH EYES IN THE MORNING 06/13/20 23 Active rosuvastatin (CRESTOR) 10 MG tablet Take 10 mg by mouth 1 (one) time each day 07/22/20 23 Active predniSONE 5 MG tablet TAKE 1 1/2 TABS (7.5 MG) ORALLY DAILY 06/26/20 23 Active omeprazole (PriLOSEC) [address] capsule Take 40 mg by mouth 1 (one) time each day 07/07/20 23 Active metoprolol tartrate (LOPRESSOR) 50 MG tablet Take 50 mg by mouth in the morning and 50 mg in the evening. 07/25/20 23 Active Humira Pen 40 MG/0.4ML Pen-injector Kit 07/15/20 23 Active bumetanide (BUMEX) 1 MG tablet Take [...] DAY IN THE MORNING 90 tablet 3 10/04/20 24 Active aspirin (ST IGLESIA) 81 MG EC tablet Take 81 mg by mouth 1 (one) time each day Active cholecalcifero l (VITAMIN D-3 SUPER STRENGTH) 50 MCG (2000 UT) tablet Take 2,000 Units by mouth in the morning. 06/11/20 24 Active dilTIAZem CD (CARDIZEM CD) 240 MG 24 hr capsule Take 240 mg by mouth 1 (one) time each day 11/07/20 24 Active sacubitril-emeterio sartan (Entresto) 49-51 MG per tablet Take 1 [...] not crush, chew, or split. 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 He continues on cardioprotective medical [...] Encounters Date Type Department Care Team Description 01/22/2025 Refill [facility] [address] [place] [address] Davidson Quinonez MD 11/19/2024 1:45 PM EST Office Visit [facility] [place] [address] [place] [address] Davidson Quinonez MD Stage 3b chronic kidney disease (HCC) (Primary Dx); Renal osteodystrophy; 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HCC) from Last 3 Months Immunizations Name Administration [...] Visit [facility] [address] [place] [address] Davidson Quinonez MD [address] [facility] [address] [place] [address] Health Maintenance Due Date Last Done Comments Diabetes: Ophthalmology Exam 08/04/2023 Diabetes: Pedal Pulse Checked 08/04/2023 Diabetes: Sensory Foot Exam 08/04/2023 Diabetes: Visual Foot Exam 08/04/2023 Influenza Vaccine (#1) 2024 2, 09/28/2021, 08/05/2020, Additional history exists Diabetes: Hemoglobin A1C 04/16/2025 025, 10/09/2024, 01/17/2024 Pneumococcal Vaccine: 65+ Years Completed 10/06/2021, 04/08/2015, 11/16/2007 Hepatitis B Vaccine Aged Out No longe r eligible based on patient's age to complete this topic Insurance [facility] ([id number]) [facility] ([id number]) Care Teams Promotion Officer Relationship Specialty Start Date End Date Moris Machado MD [address] [place] [address] PCP - General Internal Medicine 04/26/23
--- OUTSIDE RECORDS SUMMARY | 2025-02-08 14:36 | XMS_ITS | Encounter Summary ---
Author Organization [facility] Address [address] [place] [address] Care Team Providers Care Coupon Collection Clerk Name Role Phone Moris Machado MD Primary Care Provider [phone] Encounter Details Date Type Department Care Team (Latest Contact Info) Description 02/04/2025 Anticoagulation - Warfarin Visit [facility] - [address] [phone] Xiomara Mcintyre LPN Atrial fibrillation, unspecified type (CMS/HCC) (Primary Dx); FDC (current) use of anticoagulants Social History Tobacco [...] 10:00 AM EDT Office Visit Endocrinology - [address] [phone] Nicole Samson PA [address] [facility] [place] [address] 06/19/2025 11:00 AM EDT Office Visit Adult Medicine [facility] [address] [place] [phone] Juan Velasquez PA 444 [place] [address] documented as of this encounter Procedures Procedure Name Priority Date/Time Associated Diagnosis Comments PROTHROMBIN TIME WITH INR Routine 02/04/2025 documented in this encounter Results * Prothrombin time with INR (02/04/2025) INR 2.7 Comment:[facility] Roman ra Prothrombin Time POC Blood Venous blood specimen / Unknown 02/04/2025 us Moris Machado MD LAB BLOOD ORDERABLES Final Resu lt documented in this encounter Visit Diagnoses Diagnosis Atrial fibrillation, unspecified type (CMS/HCC)- 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
--- OUTSIDE RECORDS SUMMARY | 2025-02-08 14:36 | XMS_ITS | Encounter Summary ---
Author Organization [facility] Address [address] [place] [address] Care Team Providers Care Sales Supervisor Name Role Phone Moris Machado MD Primary Care Provider [phone] Encounter Details Date Type Department Care Team (Latest Contact Info) Description 01/09/2025 Anticoagulation - Warfarin Visit [facility] - [address] [phone] Tiffanie Saba, KELLIE Atrial fibrillation, unspecified type (CMS/HCC) (Primary Dx); [facility] (current) use of anticoagulants Social History Tobacco [...] 10:00 AM EDT Office Visit Endocrinology - [address] [phone] Nicole Samson PA [address] [facility] [place] [address] 06/19/2025 11:00 AM EDT Office Visit Adult Medicine [facility] [address] [place] [phone] Juan Velasquez PA [address] [place] [address] documented as of this encounter Procedures Procedure Name Priority Date/Time Associated Diagnosis Comments PROTHROMBIN TIME WITH INR Routine 01/09/2025 documented in this encounter Results * Prothrombin time with INR (01/09/2025) INR 3.5 Comment:[facility] Prothrombin Time POC Blood Venous blood specimen / Unknown 01/09/2025 us Moris Machado MD LAB BLOOD ORDERABLES Edited Res ult - Final documented in this encounter Visit Diagnoses Diagnosis Atrial fibrillation, unspecified type (CMS/HCC)- Primary [facility]FP (current) use of anticoagulants Long-term (current) use of anticoagulants documented in this encounter Additional Health Concerns Assessment Noted Time PHQ-9 Depression Total Score: 7 12/10/19 25 11:19 AM EST A fall risk assessment has been complete d for the patient 12/10/2024 11:17 AM EST documented as of this encounter Care Teams Sales Supervisor Relationship Specialty Start Date End Date Moris Machado MD [address] [place] [address] PCP - General Internal Medicine 10/09/24 documented as of this encounter
--- OUTSIDE RECORDS SUMMARY | 2025-02-08 14:36 | XMS_ITS | Encounter Summary ---
Author Organization [facility] Address [address] [place] [address] Care Team Providers Care Tractor Driver Name Role Phone Moris Machado MD Primary Care Provider [phone] Reason for Visit * Reason Onset Date Comments Faxed Order 02/01/2025 [facility] order# [id number] Encounter Details Date Type Department Care Team (Late st Contact Info) Description 02/01/2025 Telephone Adult Medicine [address] [address] Aleshia Ramirez RN Faxed Order ([facility] order# [id number]) Social History Tobacco Use Types Packs/Day Years [...] Progress Notes * Remedios Silverman MA - 02/07/2025 2:49 PM EDT SIGNED SCANNED AND E-FAXED * Aleshia Ramirez RN - 02/01/2025 12:04 PM EST Received [facility] order# [id number]. Please sign and fax to [phone]. documented in this encounter Plan of Treatment Upcoming Encounters Date Type Department Care Team (Late st Contact Info) Description 03/21/2025 10:00 AM EDT Office Visit [address] [phone] Nicole Samson PA [address] [place] [address] 06/19/2025 11:00 AM EDT Office Visit Adult Medicine [address] [phone] Juan Velasquez PA [address] [place] [address] documented as of this encounter Visit Diagnoses Not on filedocumented in this encounter Additional Health Concerns Assessment Noted Time PHQ-9 Depression Total Score: 7 12/10/19 25 11:19 AM EST A fall risk assessment has been complete d for the patient 12/10/2024 11:17 AM EST documented as of this encounter Care Teams Tractor Driver Relationship Specialty Start Date End Date Moris Machado MD [address] [place] [address] PCP - General Internal Medicine 10/09/24 documented as of this encounter
--- OUTSIDE RECORDS SUMMARY | 2025-02-08 14:36 | XMS_ITS | Encounter Summary ---
Author Organization [facility] Address [address] [place] [address] Care Team Providers Care Furniture Crater Name Role Phone Moris Machado MD Primary Care Provider [phone] Reason for Visit * Reason Onset Date Comments faxed order 12/24/2024 [facility] order #[id number] Encounter Details Date Type Department Care Team (Late st Contact Info) Description 12/24/2024 Telephone Adult Medicine [address] [phone] Silvana Torres MA faxed order ([facility] order #[id number]) Social History Tobacco Use Types Packs/Day Years [...] Received orders from [facility] order #[id number]. Please sign and fax to [phone] documented in this encounter Plan of Treatment Upcoming Encounters Date Type Department Care Team (Late st Contact Info) Description 03/21/2025 10:00 AM EDT Office Visit [address] [phone] Nicole Samson PA [address] [place] [address] 06/19/2025 11:00 AM EDT Office Visit Adult Medicine South - [address] [phone] Juan Velasquez PA [address] [place] [address] documented as of this encounter Visit Diagnoses Not on filedocumented in this encounter Additional Health Concerns Assessment Noted Time PHQ-9 Depression Total Score: 7 12/10/19 25 11:19 AM EST A fall risk assessment has been complete d for the patient 12/10/2024 11:17 AM EST documented as of this encounter Care Teams Furniture Crater Relationship Specialty Start Date End Date Moris Machado MD [address] [place] [address] PCP - General Internal Medicine 10/09/24 documented as of this encounter
--- OUTSIDE RECORDS SUMMARY | 2025-02-08 14:36 | XMS_ITS | Encounter Summary ---
Author Organization [facility] Address [address] [place] [address] Care Team Providers Care Weighbridge Operator Name Role Phone Moris Machado MD Primary Care Provider [phone] Reason for Visit * Reason Onset Date Comments faxed orders 01/11/2025 Faxed order rece ived from [facility] [id number] pls sign and fax to [phone]. Encounter Details Date Type Department Care Team (Late st Contact Info) Description 01/11/2025 Telephone Adult Medicine [address] [phone] Moris Machado MD [address] [place] [address] faxed orders (Faxed order received from [facility] [id number] pls sign and fax to [phone].) Social History Tobacco Use Types Packs/Day Years [...] 10:00 AM EDT Office Visit Endocrinology [address] [phone] Nicole Samson PA [address] [place] [address] 06/19/2025 11:00 AM EDT Office Visit Adult Medicine [facility] - [address] [phone] Juan Velasquez PA [address] [place], [place] documented as of this encounter Visit Diagnoses Not on filedocumented in this encounter Additional Health Concerns Assessment Noted Time PHQ-9 Depression Total Score: 7 12/10/19 25 11:19 AM EST A fall risk assessment has been complete d for the patient 12/10/2024 11:17 AM EST documented as of this encounter Care Teams Weighbridge Operator Relationship Specialty Start Date End Date Moris Machado MD [address] [place] [address] PCP - General Internal Medicine 10/09/24 documented as of this encounter
--- OUTSIDE RECORDS SUMMARY | 2025-02-08 14:36 | XMS_ITS | Continuity of Care Document ---
Author Organization [facility] Address [address] [place] [address] Phone Care Team Providers Care Salesforce Developer Name Role Phone Unavailable Unavailable Unavailable Procedures [...] Diagnoses Date Provider Providers Copied on Encounter [facility], [address] [place], [place], [id number], [place] tel:[phone] [facility] No Information 1-200 5 No Information Family History Family Member Type Diagnosis Age At Onset No Information Immunizations Vaccine Date Status Comments flu (split) (3 yrs or older) administered Source: New Immunization Record Payers Payer name Insurance type Covered republican ID Authoriza tion(s) [facility] Medicaid [id number] Social History Type Description Quantity Date Captured [...]
--- OUTSIDE RECORDS SUMMARY | 2025-02-08 14:36 | XMS_ITS | Encounter Summary ---
Author Organization [facility] Address [address] [place] [address] Care Team Providers Care Wood Heel Fitter Machine Name Role Phone Moris Machado MD Primary Care Provider [phone] Encounter Details Date Type Department Care Team (Late st Contact Info) Description 12/20/2024 Nurse Triage Adult Medicine [address] [phone] Brooke Coronel, RN Social History Tobacco Use [...] Called pt via AMN and interpretor # [id number]. An appointment was made for him to [...] therapist who comes to his house through [facility] two times a week 10. POTENTIAL [...] Description 03/21/2025 10:00 AM EDT Office Visit [address] [phone] Nicole Samson PA [address] [place] [address] 06/19/2025 11:00 AM EDT Office Visit Adult Medicine [address] [phone] Juan Velasquez PA [address] [place] [address] documented as of this encounter Visit Diagnoses Not on filedocumented in this encounter Additional Health Concerns Assessment Noted Time PHQ-9 Depression Total Score: 7 12/10/19 25 11:19 AM EST A fall risk assessment has been complete d for the patient 12/10/2024 11:17 AM EST documented as of this encounter Care Teams Wood Heel Fitter Machine Relationship Specialty Start Date End Date Moris Machado MD [address] [place] [address] PCP - General Internal Medicine 10/09/24 documented as of this encounter
--- OUTSIDE RECORDS SUMMARY | 2025-02-08 14:36 | XMS_ITS | Encounter Summary ---
Author Organization [facility] Address [address] [place] [address] Care Team Providers Care Benefit Director Name Role Phone Moris Machado MD Primary Care Provider [phone] Reason for Visit * Reason Onset Date Comments Faxed Order 01/31/2025 [facility] Orders# [id number], [id number], [id number] Encounter Details Date Type Department Care Team ([facility] st Contact Info) Description 01/31/2025 Telephone Adult Medicine [address] [phone] Aleshia Ramirez RN Faxed Order ([facility] Orders# [id number], [id number], [id number]) Social History Tobacco Use Types Packs/Day Years [...] as of this encounter Progress Notes * Aleshia Ramirez RN - 01/31/2025 4:28 PM EST Received [facility] Orders# [id number], [id number], [id number]. Please sign and fax to [phone]. documented in this encounter Plan of Treatment Upcoming Encounters Date Type Department Care Team (Late st Contact Info) Description 03/21/2025 10:00 AM EDT Office Visit Endocrinology - [address] [phone] Nicole Samson PA [address] [place] [address] 06/19/2025 11:00 AM EDT Office Visit Adult Medicine South - [address] [phone] Juan Velasquez PA [address] [place], [place] documented as of this encounter Visit Diagnoses Not on filedocumented in this encounter Additional Health Concerns Assessment Noted Time PHQ-9 Depression Total Score: 7 12/10/19 25 11:19 AM EST A fall risk assessment has been complete d for the patient 12/10/2024 11:17 AM EST documented as of this encounter Care Teams Benefit Director Relationship Specialty Start Date End Date Moris Machado MD [address] [place] [address] PCP - General Internal Medicine 10/09/24 documented as of this encounter
--- OUTSIDE RECORDS SUMMARY | 2025-02-08 14:36 | XMS_ITS | Encounter Summary ---
Author Organization [facility] Address [address] [place] [address] Care Team Providers Care Principal Librarian Name Role Phone Moris Machado MD Primary Care Provider [phone] Reason for Visit * Reason Onset Date Comments faxed ordrs 01/30/2025 Faxed orders rec eived from [facility] [employer] [facility] [id number], [id number] please sign and fax to [phone]. Encounter Details Date Type Department Care Team (Late st Contact Info) Description 01/30/2025 Telephone Adult Medicine [address] [phone] Moris Machado MD [address] [place] [address] faxed ordrs (Faxed orders received from [employer] [facility] [id number], [id number] please sign and fax to [phone].) Social History Tobacco Use Types Packs/Day Years [...] Notes * Remedios Silverman MA - 02/07/2025 2:48 PM EDT SIGNED SCANNED AND E-FAXED documented in this encounter Plan of Treatment Upcoming Encounters Date Type Department Care Team (Late st Contact Info) Description 03/21/2025 10:00 AM EDT Office Visit [address] [phone] Nicole Samson PA [address] [place] [address] 06/19/2025 11:00 AM EDT Office Visit Adult Medicine [address] [phone] Juan Velasquez PA [address] [place], [place] documented as of this encounter Visit Diagnoses Not on filedocumented in this encounter Additional Health Concerns Assessment Noted Time PHQ-9 Depression Total Score: 7 12/10/19 25 11:19 AM EST A fall risk assessment has been complete d for the patient 12/10/2024 11:17 AM EST documented as of this encounter Care Teams Principal Librarian Relationship Specialty Start Date End Date Moris Machado MD [address] [place] [address] PCP - General Internal Medicine 10/09/24 documented as of this encounter
--- OUTSIDE RECORDS SUMMARY | 2025-02-08 14:36 | XMS_ITS | Encounter Summary ---
Author Organization [facility] Address [address] [place] [address] Care Team Providers Care Code Official Name Role Phone Moris Machado MD Primary Care Provider [phone] Reason for Visit * Reason Onset Date Comments faxed order 12/10/2024 [facility] PT Plan of Care order #[id number] Encounter Details Date Type Department Care Team (Late st Contact Info) Description 12/10/2024 Telephone Adult Medicine [address] [phone] Silvana Torres MA faxed order ([facility] PT Plan of Care order #[id number]) Social History Tobacco Use Types Packs/Day Years [...] [facility] PT Plan of Care order #[id number]. Please sign and fax to [phone] documented in this encounter Plan of Treatment Upcoming Encounters Date Type Department Care Team (Late st Contact Info) Description 03/21/2025 10:00 AM EDT Office Visit [address] [phone] Nicole Samson PA [address] [place] [address] 06/19/2025 11:00 AM EDT Office Visit Adult Medicine South - [address] [phone] Juan Velasquez PA [address] [place] [address] documented as of this encounter Visit Diagnoses [...] documented as of this encounter Care Teams Code Official Relationship Specialty Start Date End Date Moris Machado MD [address] [place] [address] PCP - General Internal Medicine 10/09/24 documented as of this encounter
--- OUTSIDE RECORDS SUMMARY | 2025-02-08 14:36 | XMS_ITS | Clinical Summary ---
Author Organization [address] Address [address] [place] [phone] Phone Care Team Providers Care Editing Intern Name Role Phone Moris Machado MD Primary Care Provider [phone] Allergies No known active allergies Medications rosuvastatin (CRESTOR) 10 mg tablet TAKE 1 TABLET BY MOUTH AT BEDTIME 90 tablet 1 10/08/20 24 Active Entresto 49-51 mg per tablet TAKE 1 TABLET BY MOUTH TWICE DAILY 180 tablet 1 10/08/20 24 Active albuterol 2.5 mg /3 mL (0.083 %) nebulizer solution USE 1 VIAL VIA NEBULIZER EVERY 4 HOURS NEEDED FOR WHEEZING 360 mL 2 10/15/20 24 025 Active adalimumab (Humira,CF, Pen) 40 mg/0.4 mL pen Inject 0.4 mL (40 mg total) under the skin every 14 (fourteen) days. 10/23/20 21 Active calcitrioL (ROCALTROL) 0.25 mcg capsule Take 1 capsule (0.25 mcg total) by mouth every other day. 02/27/20 24 Active cholecalcifer ol (VITAMIN D-3) 50 mcg (2,000 unit) tablet Take 1 tablet (2,000 Units total) by mouth 1 (one) time each day. 06/11/20 24 Active dilTIAZem CD (CARDIZEM CD) 240 mg 24 hr capsule Take 1 capsule (240 mg total) by mouth 1 (one) time each day. 07/17/20 24 Active folic acid (FOLVITE) 400 mcg tablet Take 1 tablet (0.4 mg total) by mouth 1 (one) time each day. 08/10/20 24 Active ipratropium-a lbuteroL (Combivent Respimat) 20-100 mcg/actuation inhaler Inhale 1 Puff into the lungs every 6 hours as needed (wheezing) for up to 30 days. 05/26/20 23 Active predniSONE (DELTASONE) 10 mg tablet Take 1 tablet (10 mg total) by mouth 1 (one) time each day. 06/29/20 24 Active sildenafil (REVATIO) 20 mg tablet Take 1 tablet (20 mg total) by mouth 3 (three) times a day. 04/27/20 24 Active albuterol HFA (Ventolin HFA) 90 mcg/actuation inhaler Inhale 2 puffs by mouth every 4 (four) hours if needed for wheezing or shortness of breath. 06/04/20 24 Active timolol (TIMOPTIC) 0.5 % ophthalmic solution INSTILL 1 DROP IN BOTH EYES IN THE MORNING 06/13/20 23 Active warfarin (COUMADIN) 2.5 mg tablet Take 1 tablet (2.5 mg total) by mouth every other day. Evening dose Active warfarin (COUMADIN) 5 mg tablet TAKE 1 TABLET BY MOUTH DAILY. MAY CAUSE HEAVY BLEEDING. TAKE AT THE SAME TIME EVERY_DAY. DO NOT CHANGE DIETARY HABITS 90 tablet 1 12/04/19 25 Active Ofev 150 mg capsule Take 1 capsule (150 mg total) by mouth 2 (two) times a day. 11/29/19 25 Active Oxygen Therapy via Nasal Cannula (O2) gas Inhale 4-5 L/min by mouth continuously. via nasal canula Active empagliflozin (Jardiance) 25 mg tablet Take 25 mg by mouth daily. 90 tablet 3 12/14/19 25 Active nitroglycerin (NITROSTAT) 0.[address] 1 tablet (0.4 mg total) under the tongue every 5 (five) minutes if needed for chest pain. 90 tablet 1 12/27/19 25 Active BD Ultra-Fine Short Pen Needle 31 gauge x 5/16 needle USE DIRECTED TO INJECT INSULIN ONCE NIGHTLY 100 each 5 01/02/20 25 Active bumetanide (BUMEX) 1 mg tablet Take 1 tablet (1 mg total) by mouth 2 (two) times a day. 90 tablet 1 01/09/20 25 Active flash glucose sensor (FreeStyle Martha 2 Sensor) kit Change sensor change every 14 days 2 EA 01/16/20 25 Active Breo Ellipta 200-25 mcg/dose inhaler Inhale 1 puff by mouth 1 (one) time each day. 3 each 01/18/20 25 Active pantoprazole (PROTONIX) 40 mg EC tablet Take 1 tablet (40 mg total) by mouth 2 (two) times a day. Do not crush, chew, or split. 90 each 01/18/20 25 025 Active traMADoL (ULTRAM) 50 mg tablet Take 1 tablet (50 mg total) by mouth 2 (two) times a day if needed for severe pain. for pain Max Daily Amount: 100 mg 56 tablet 01/18/20 25 Active metoprolol tartrate (LOPRESSOR) 50 mg tablet TAKE 1 TABLET BY MOUTH TWICE A DAY 180 tablet 1 01/23/20 25 Active insulin glargine (Lantus Solostar U-100 Insulin) 100 unit/mL (3 mL) injection pen INJECT 25 UNITS SUBCUTANEOUS EVERY EVENING 15 mL 02/08/20 25 Active metoprolol tartrate (LOPRESSOR) 50 mg tablet Take 1 tablet (50 mg total) by mouth 2 (two) times a day. 07/18/20 24 025 Discontinued traMADoL (ULTRAM) 50 mg tablet Take 1 tablet (50 mg total) by mouth 2 (two) times a day if needed for severe pain. for pain Max Daily Amount: 100 mg 56 tablet 10/30/20 24 025 Discontinued(R eorder) Breo Ellipta 200-25 mcg/dose inhaler Inhale 1 puff by mouth 1 (one) time each day. 09/19/20 24 025 Discontinued(R eorder) insulin glargine (Lantus Solostar U-100 Insulin) 100 unit/mL (3 mL) injection pen INJECT 20 UNITS SUBCUTANEOUS EVERY EVENING 15 mL 12/14/19 25 025 Discontinued(R eorder) omeprazole (PriLOSEC) [address] capsule Take 1 capsule (20 mg total) by mouth 1 (one) time each day. 90 capsule 1 01/09/20 25 025 Discontinued Breo Ellipta 200-25 mcg/dose inhaler Inhale 1 puff by mouth 1 (one) time each day. 3 each 01/17/20 025 Discontinued(R eorder) pantoprazole (PROTONIX) 40 mg EC tablet Take 1 tablet (40 mg total) by mouth 2 (two) times a day. Do not crush, chew, or split. 90 each 01/17/20 025 Discontinued(R eorder) traMADoL (ULTRAM) 50 mg tablet Take 1 tablet (50 mg total) by mouth 2 (two) times a day if needed for severe pain. for pain Max Daily Amount: 100 mg 56 tablet 01/17/20 025 Discontinued(R eorder) Active Problems Problem Noted Date Diagnosed Date Atrial fibrillation 10/26/2024 custodial (current) use of anticoagulants 2023 Diabetes mellitus [...] oxygen therapy. 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 We will update an echocardiogram to reevaluate his right ventricular function. Influenza 03/05/2022 Overview (10/19/2024): [place] [facility] [place] Lymphadenopathy 03/05/2022 Overview (10/19/2024): D/[place]'d [place] [facility] [place]21 ILD (interstitial lung disease) 11/30/2021 Overview (10/19/2024): D/[place]'d [place] [facility] [place]21 Assessment & Plan (12/10/2024 3:56 PM EST): 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 Old SC (myocardial infarction) 06/12/2015 Glaucoma 06/05/2012 A-fib 03/16/2012 Overview (10/19/2024): Last Assessment & Plan: Patient has a history of atrial fibrillation on chronic anticoagulation with warfarin. He is a [id number] score of 4 and continues on anticoagulation as prescribed. He is also on metoprolol for rate control. His heart rate is well controlled today. He denies any excessive bruising or bleeding. We will continue current therapies. CAD (coronary artery disease) 03/16/2012 Overview (10/19/2024): Last Assessment & Plan: The patient has a history of coronary artery disease status post inferior SC in 2003. He continues on cardioprotective medical [...] 03/05/2022 11/23/2024 Overview (10/19/2024): Acute D/C'd [place] [facility] [place] 11/23/21 Encounters Date Type Department Care Team Description 02/07/2025 Billing Patient Not Present Adult Medicine [address] [phone] Moris Machado MD 02/07/2025 Billing Patient Not Present Adult [address] [phone] Moris Machado MD 02/04/2025 Anticoagulation - [facility]farin [facility] [address] [phone] Xiomara Mcintyre LPN Atrial fibrillation, unspecified type (CMS/HCC) (Primary Dx); long term care administrator (current) use of anticoagulants 02/01/2025 Telephone Adult Medicine [address] [phone] Aleshia Ramirez, RN Faxed Order ([facility] order# [id number]) 01/31/2025 Telephone Adult Medicine [address] [phone] Aleshia Ramirez RN Faxed Order ([facility] Orders# [id number], [id number], [id number]) 01/31/2025 Telephone Adult Medicine [address] [phone] Moris Machado MD faxed orders (Faxed orders received from [facility] [phone] please sign and fax to [phone].) 01/30/[address] [phone] Moris Machado MD faxed ordrs (Faxed orders received from [facility] [id number], [id number] please sign and fax to [phone].) 01/30/[address] [phone] Nicole Samson PA prior authorization 01/28/2025 Anticoagulation - Warfarin Visit Coumadin [address] [phone] Tiffanie Saba LPN Atrial fibrillation, unspecified type (CMS/HCC) (Primary Dx); custodial (current) use of anticoagulants 01/25/2025 Billing Patient Not Present Adult [address] [phone] Moris Machado MD 01/25/2025 Billing Patient Not Present Adult [address] [phone] Moris Machado MD 01/23/2025 Billing Patient Not Present Adult [address] [phone] Moris Machado MD 01/22/2025 Anticoagulation - Warfarin Visit [address] [phone] Tiffanie Saba LPN Atrial fibrillation, unspecified type (CMS/HCC) (Primary Dx); long term care administrator (current) use of anticoagulants 01/21/2025 Telephone Adult [address] [phone] Silvana Torres MA faxed order ([facility] order #[id number], #[id number], #[id number], #[id number]) 01/17/2025 10:30 AM EST Office Visit Adult [address] [phone] Moris Machado MD Acute on chronic respiratory failure, unspecified whether with hypoxia or hypercapnia (CMS/HCC) (Primary Dx); Hypokalemia; Primary hypertension; Type 2 diabetes mellitus with chronic kidney disease, with long-term current use of insulin, unspecified CKD stage ([facility]/HCC); Pure hypercholesterolemia ; Encounter for long-term (current) use of medications; Heart failure with preserved ejection fraction, unspecified HF chronicity (CMS/HCC); Diabetes mellitus due to underlying condition, uncontrolled, with hyperglycemia ([facility]/HCC); Chronic hypoxemic respiratory failure ([facility]/HCC); ILD (interstitial lung disease) ([facility]/HCC); Chronic obstructive pulmonary disease, unspecified COPD type ([facility]/HCC) 01/16/2025 Telephone Adult [address] [phone] Moris Machado MD faxed order (Faxed order received from [facility] [id number] please sign and fax to [phone]./) 01/15/[address] [phone] Nicole Samson PA Medication Problem 01/15/2025 Anticoagulation - Warfarin Visit Coumadin [address] [phone] Xiomara Mcintyre LPN Atrial fibrillation, unspecified type ([facility]/HCC) (Primary Dx); custodial (current) use of anticoagulants 01/11/2025 Telephone Adult Medicine [address] [phone] Moris Machado MD faxed orders (Faxed order received from [facility] [id number] pls sign and fax to [phone].) 01/09/2025 Anticoagulation - Warfarin Visit Coumadin [address] [phone] Tiffanie Saba LPN Atrial fibrillation, unspecified type (CMS/HCC) (Primary Dx); long term care administrator (current) use of anticoagulants 01/04/2025 Anticoagulation - Warfarin Visit Coumadin [address] [phone] Moris Machado MD Atrial fibrillation, unspecified type (CMS/HCC) (Primary Dx); long term care administrator (current) use of anticoagulants 01/04/2025 Telephone Adult Medicine [address] [phone] Moris Machado MD faxed orders (Faxed orders received from [facility] [id number], [id number], [id number] please sign and fax to [phone].) 12/31/2024 [facility] [address] [phone] Xiomara Mcintyre LPN Atrial fibrillation, unspecified type (CMS/HCC) (Primary Dx); long term care administrator (current) use of anticoagulants 12/28/2024 [place] Adult [address] [phone] Moris Machado MD Request For Order(s) ([facility] order # [id number] received and placed in provider's bin. Please sign and fax back to [phone]) 12/27/2024 Telephone Adult Medicine [address] [phone] Moris Machado MD Shortness of Breath 12/26/2024 Telephone Adult Medicine [address] [phone] Moris Machado MD [facility] 12/26/2024 Anticoagulation - Warfarin Visit Coumadin [address] [phone] Tiffanie Saba LPN Atrial fibrillation, unspecified type (CMS/HCC) (Primary Dx); long term care administrator (current) use of anticoagulants 12/25/2024 Billing Patient Not Present Adult [address] [phone] Moris Machado MD Acute and chronic respiratory failure with hypoxia (CMS/HCC) (Primary Dx); COPD with acute exacerbation (CMS/HCC); Chronic systolic (congestive) heart failure (CMS/HCC); Pulmonary hypertension, unspecified (CMS/HCC); Pulmonary fibrosis, unspecified (CMS/HCC); Paroxysmal atrial fibrillation (CMS/HCC); Rheumatoid arthritis, involving unspecified site, unspecified whether rheumatoid factor present ([facility]); Type 2 diabetes mellitus with diabetic chronic kidney disease, unspecified CKD stage, unspecified whether exterminator insulin use ([facility]); Hypertensive heart and chronic kidney disease with heart failure and stage 1 through stage 4 chronic kidney disease, or chronic kidney disease ([facility]/HCC); Chronic kidney disease, stage 3b ([facility]); Gastroesophageal reflux disease without esophagitis; Atherosclerosis of lime coronary artery without angina pectoris, unspecified whether lime or transplanted heart; Hyperlipidemia, unspecified hyperlipidemia type; long term care administrator (current) use of insulin ([facility]); custodial (current) use of systemic steroids; custodial (current) use of antithrombotics/anti platelets; long term care administrator (current) use of aspirin; custodial (current) use of oral hypoglycemic drugs; Dependence on supplemental oxygen 12/24/[address] [phone] Silvana Torres MA faxed order ([facility] order #[id number]) 12/20/2024 Nurse Triage Adult [address] [phone] Brooke Coronel RN 12/19/2024 Billing Patient Not Present [address] [phone] Moris Machado MD Acute and chronic respiratory failure with hypoxia (CMS/HCC) (Primary Dx); Chronic obstructive pulmonary disease with (acute) exacerbation (CMS/HCC); Chronic diastolic (congestive) heart failure ([facility]); Pulmonary hypertension, unspecified (CMS/HCC); Pulmonary fibrosis, unspecified ([facility]); Paroxysmal atrial fibrillation ([facility]); Rheumatoid arthritis, involving unspecified site, unspecified whether rheumatoid factor present ([facility]); Type 2 diabetes mellitus with diabetic chronic kidney disease, unspecified CKD stage, unspecified whether exterminator insulin use ([facility]); Hypertensive heart and chronic kidney disease with heart failure and stage 1 through stage 4 chronic kidney disease, or unspecified chronic kidney disease ([facility]); Stage 3 chronic kidney disease, unspecified whether stage 3a or 3b CKD ([facility]); Gastro-esophageal reflux disease without esophagitis; Hyperlipidemia, unspecified hyperlipidemia type; custodial (current) use of insulin ([facility]); custodial (current) use of systemic steroids; custodial (current) use of antithrombotics/anti platelets; custodial (current) use of aspirin; long term care administrator (current) use of oral hypoglycemic drugs; Dependence on supplemental oxygen 12/18/2024 7:18 AM EST - 12/18/2024 11:27 AM EST [facility] [address] [place] [phone] Katharina Castellanos DO Gastritis without bleeding, unspecified chronicity, unspecified gastritis type (Primary Dx) Discharge Disposition: Home or Self Care 12/14/2024 9:00 AM EST Consult [address] [phone] Nicole Samson PA Diabetes mellitus due to underlying condition, uncontrolled, with hyperglycemia ([facility]) (Primary Dx); Stage 3b chronic kidney disease ([facility]); Secondary hypertension 12/11/2024 2:04 PM EST - 12/11/2024 8:46 PM EST [facility] [address] [place] [phone] Brent Ojeda MD Shortness of breath (Primary Dx); COPD exacerbation ([facility]) Discharge Disposition: Home or Self Care 12/10/2024 11:00 AM EST Office Visit Adult Medicine [address] [phone] Moris Machado MD Encounter for subsequent annual wellness visit (AWV) in Medicare patient (Primary Dx); Acute on chronic heart failure with preserved ejection fraction (CMS/HCC); Chronic hypoxemic respiratory failure (CMS/HCC); Acute on chronic respiratory failure with hypoxia (CMS/HCC); ILD (interstitial lung disease) (CMS/HCC) 12/10/2024 10:30 AM EST Anticoagulation - Warfarin Visit Coumadin [address] [phone] Atrial fibrillation, unspecified type (CMS/HCC) (Primary Dx); custodial (current) use of anticoagulants 12/10/2024 Telephone Adult Medicine [address] [phone] Silvana Torres MA faxed order ([facility] Plan [facility] Care order #[id number]) 12/07/[address] [phone] Kati Gonzalez MD PRIOR AUTHORIZATION 12/03/[address] [phone] Kati Gonzalez MD 11/30/[address] [phone] Kati Gonzalez MD Appointment 11/27/2024 10:10 AM EST Anticoagulation - Warfarin Visit Coumadin [address] [phone] Atrial fibrillation, unspecified type ([facility]/HCC) (Primary Dx); long term care administrator (current) use of anticoagulants 11/20/2024 10:33 AM EST - 11/23/2024 3:55 PM EST Hospital Encounter [facility] [address] [place] [phone] Davidson Hebert MD Bukalo, Nermina, MD Kokosadze, Estate, MD COPD exacerbation (CMS/HCC) (Primary Dx) Discharge Disposition: [place] [facility] [place]/13/2024 Telephone Adult Medicine [address] [phone] Moris Machado MD [facility] Order ([facility]/Order #[id number]) from Last 3 Months Immunizations Name Administration [...] History Surgery Date Site/Laterality Comments COLONOSCOPY 10/17/19 [facility] PROCEDURE: HISTORICAL COLONOSCOPY; COMMENT: sigmoid adenoma and tics COLONOSCOPY 05/02/14 PROCEDURE: SC COLONOSCOPY STOMA W/RMVL BART POLYP/OTH LES SNARE; COMMENT: adenoma and tics; repeat in 5 yrs Medical History Medical History Date Comments A-fib ([facility]) 03/16/2012 DX:A-fib ([facility]) CAD (coronary artery disease) 03/16/2012 DX :CAD (coronary artery disease) High cholesterol 03/16/2012 DX:High cholest anh HTN (hypertension) 03/16/2012 DX:HTN (hyper tension) Historical Medical DX 04/20/2012 DX:PPD neg ative RA (rheumatoid arthritis) ([facility]/HCC) 03/16/2012 DX:RA (rheumatoid arthritis) ([facility]) Glaucoma 06/05/2012 DX:Glaucoma 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 DX:Schamberg 's disease ILD (interstitial lung disea se) ([facility]/HCC) 11/30/2021 DX:ILD (interstitial lung di sease) ([facility]) Asthma DX:Asthma Family History Medical History Relation [...] Orientation Straight 12/11/2024 3: 28 PM EST Obstetrics History Last Filed Vital Signs Vital Sign Reading Time Taken Comments Blood Pressure 120/67 01/17/2025 10:23 AM EST Pulse 80 01/17/2025 10:23 AM EST Temperature 35.8 ??C (96.4 ??F) 01/17/2025 10:[address] Respiratory Rate 16 01/17/2025 10:23 AM EST Oxygen Saturation 91% 12/18/2024 11:14 AM EST Inhaled Oxygen Concentration - - Weight 79.4 kg (175 lb) 01/17/2025 10:23 AM EST Height 180.3 cm (5' 11 ) 12/18/2024 7:40 AM EST Body Mass Index 24.41 12/18/2024 7:40 AM EST Plan of Treatment Upcoming Encounters Date Type Department Care Team (Late st Contact Info) Description 03/21/2025 10:00 AM EDT Office Visit [address] [phone] Nicole Samson PA [address] [place] [address] 06/19/2025 11:00 AM EDT [facility] [address] [place] [phone] Juan Velasquez PA [address] [place] [address] Health Maintenance Due Date Last Done Comments Diabetes: Annual Foot Exam 1955 RSV Immunization Patients 60+ Years Old (1 - 1-dose 75+ series) 2019 Colorectal Cancer Screening: Colonoscopy 11/06/2022 Social Influencers of Health Screening 11/06/2022 COVID-19 Vaccine ( season) 2024 05/12/2022, 07/30/2021, 02/07/2021, Additional history exists Diabetes: Annual Retina Eye Exam 02/16/2025 02/17/2024 Diabetes: Blood Sugar Control Test (HGBA1C) 07/17/2025 01/17/2025, 10/09/2024, 05/15/2024 Diabetes: Annual Urine Albumin-Creatinine Ratio (uACR) 10/09/2025 10/09/2024, 01/17/2024 Depression Screening 12/10/2025 12/10/2024, 12/08/19 Medicare Annual Wellness Visit 12/10/2025 12/10/2024 Diabetes: Annual GFR (Glomerular Filtration Rate) 12/18/2025 12/18/2024, 12/11/2024, 11/23/2024, Additional history exists Falls Risk Assessment 12/18/2025 12/18/2024 , 12/10/2024, 11/09/2023 Hypertension/CHF/CAD Annual BMP Blood Test 12/18/2025 12/18/2024, 12/11/2024, 11/23/2024, Additional history exists Cholesterol Screening (Lipid Panel) 10/09/2029 10/09/2024 DTaP,Tdap,and Td Vaccines (2 - Td or Tdap) 01/01/2030 01/01/2020 Zoster Vaccines Completed 05/12/2019, 07/28/2018 Pneumococcal Vaccine: 50+ Years Completed 10/06/2021, 04/08/2015, 11/16/2007 Influenza Vaccine [...] patient's age to complete this topic Meningococcal B Vacine Aged Out No lo nger eligible based on patient's age to complete this topic RSV Immunization Patients Under 20 months Aged Out No longer eligible based on patient's age to complete this topic Varicella Vaccines Aged Out No longer eligible based on patient's age to complete this topic Procedures Procedure Name Priority Date/Time Associated Diagnosis Comments PROTHROMBIN TIME WITH INR Routine 02/04/2025 PROTHROMBIN TIME WITH INR Routine 01/28/2025 PROTHROMBIN TIME WITH INR Routine 01/22/2025 HEMOGLOBIN A1C Routine 01/17/2025 10:14 AM EST Diabetes mellitus due to underlying condition, uncontrolled, with hyperglycemia ([facility]) PROTHROMBIN TIME WITH INR Routine 01/15/2025 PROTHROMBIN TIME WITH INR Routine 01/09/2025 PROTHROMBIN TIME WITH INR Routine 01/04/2025 HOME HEALTH ORDER 01/01/2025 HOME HEALTH ORDER 01/01/2025 HOME HEALTH ORDER 12/31/2024 HOME HEALTH ORDER 12/31/2024 PROTHROMBIN TIME WITH INR Routine 12/31/2024 HOME HEALTH ORDER 12/28/2024 HOME HEALTH ORDER 12/28/2024 HOME HEALTH ORDER 12/27/2024 HOME HEALTH ORDER 12/27/2024 PROTHROMBIN TIME WITH INR Routine 12/26/2024 PROTHROMBIN TIME WITH INR STAT 12/18/2024 9:[address] ABDOMEN PELVIS WO CONTRAST STAT 12/18/2024 9:19 AM EST CBC WITH AUTO DIFFERENTIAL STAT 12/18/2024 7:43 AM EST LIPASE STAT 12/18/2024 7:43 AM EST COMPREHENSIVE METABOLIC PANEL STAT 12/18/2024 7:43 AM EST CBC AND DIFFERENTIAL STAT 12/18/2024 7:43 AM EST ECG OUTSIDE 12/18/2024 HOME HEALTH ORDER 12/17/2024 POC GLUCOSE Routine 12/14/2024 9:21 AM EST [...] Routine 12/10/2024 Atrial fibrillation, unspecified type (CMS/HCC) long term care administrator (current) use of anticoagulants POC PROTIME INR BLOOD Routine 11/27/2024 Atrial fibrillation, unspecified type (CMS/HCC) custodial (current) use of anticoagulants HOME HEALTH ORDER 11/24/2024 POCT GLUCOSE BLOOD Routine 11/23/2024 11 :14 [...] 11/20/2024 10:51 AM EST ECG ANNOTATED 11/20/2024 HOME HEALTH ORDER 11/20/2024 HOME HEALTH ORDER 11/19/2024 HOME HEALTH ORDER 11/16/2024 MICROALBUMIN CREATININE URINE RATIO Routine 10/09/2024 10:07 AM EST Diabetes mellitus due to underlying condition, uncontrolled, with hyperglycemia ([facility]/HCC) Primary hypertension Encounter for long-term current use of medication LIPID PANEL WITH REFLEX TO DIRECT LDL Routine 10/09/2024 9:57 AM EST Diabetes mellitus due to underlying condition, uncontrolled, with hyperglycemia (CMS/HCC) Primary hypertension Encounter for long-term current use of medication DIABETES EYE EXAM Routine 02/17/2024 DEPRESSION SCREENING Routine 12/08/2023 FALLS RISK ASSESSMENT Routine 11/09/2023 from Last 3 Months or Most Recently Relevant to Health Maintenance Results * Prothrombin time with INR (02/04/2025) Only the most recent of12 resultswithin the time period is included. INR 2.7 Comment:comfort plus vna Roman ra Prothrombin Time POC Blood Venous blood specimen / Unknown 02/04/2025 us Moris Machado MD LAB BLOOD ORDERABLES Final Resu lt * (ABNORMAL) Hemoglobin A1c (01/17/2025 10:14 AM EST) Hemoglobin A1C 8.5(H) <6.5 % LAB CHEMISTRY METHOD 01/17/2025 2:[address] [facility] Mean Bld Glu Estim. 197 mg/dL LAB CHEMISTRY METHOD 01/17/2025 2:[address] [facility] Blood Venous blood specimen / Unknown Venipuncture / Unknown 01/17/2025 10:14 AM EST 01/17/2025 10:14 AM EST us Nicole ROSALES LAB BLOOD ORDERABLES Final Result [facility] [address] [place] [address], [place] [phone] * Home Health Order (01/01/2025) Only the most recent of13 resultswithin the time period is included. Provider [place] [facility] NURSING ASSESSMENTS Vero l Result * CT Abdomen Pelvis wo Contrast (12/18/2024 [...] Signed Date: 12/18/2024 09:36 ET Workstation ID: [id number] Transcribed By: Self Edit Transcribed Date: 12/18/2024 [...] Signed Date: 12/18/2024 09:36 ET Workstation ID: [id number] Transcribed By: Self Edit Transcribed Date: 12/18/2024 09:28 ET us [facility] Girma Castellanos DO IMG CT PROCEDURES Final R esult * (ABNORMAL) CBC auto differential (12/18/2024 7:43 AM EST) Only the most recent of6 resultswithin the time period is included. WBC 6.9 4.8 - 10.8 K/mcL LAB HEMETOLOGY METHOD 12/18/2024 8:37 AM [facility] RBC 4.80 4.50 - 5.50 M/mcL LAB HEMETOLOGY METHOD 12/18/2024 8:37 AM [facility] Hemoglobin 12.7(L) 13.5 - 17.5 g/dL LAB HEMETOLOGY METHOD 12/18/2024 8:37 AM [facility] Hematocrit 41.1(L) 42.0 - 54.0 % LAB HEMETOLOGY METHOD 12/18/2024 8:37 AM [facility] MCV 86.0 79.0 - 98.0 FL LAB HEMETOLOGY METHOD 12/18/2024 8:37 AM [facility] MCH 26.6(L) 27.0 - 32.0 pcg LAB HEMETOLOGY METHOD 12/18/2024 8:37 AM [facility] MCHC 30.9(L) 32.0 - 37.0 g/dL LAB HEMETOLOGY METHOD 12/18/2024 8:37 AM [facility] RDW 22.4(H) 11.0 - 15.0 % LAB HEMETOLOGY METHOD 12/18/2024 8:37 AM [facility] Platelets 172 130 - 400 K/mcL LAB HEMETOLOGY METHOD 12/18/2024 8:37 AM [facility] MPV 10.7 7.0 - 11.0 FL LAB HEMETOLOGY METHOD 12/18/2024 8:37 AM [facility] NRBC 0.0 <1.0 % LAB HEMETOLOGY METHOD 12/18/2024 8:37 AM [facility] NRBC Absolute 0.00 <0.10 K/mcL LAB HEMETOLOGY METHOD 12/18/2024 8:37 AM [facility] Neutrophils Relative 52.9 % LAB HEMETOLOGY METHOD 12/18/2024 8:37 AM [facility] Lymphocytes Relative 34.9 % LAB HEMETOLOGY METHOD 12/18/2024 8:37 AM [facility] Monocytes Relative 10.3 % LAB HEMETOLOGY METHOD 12/18/2024 8:37 AM [facility] Eosinophils Relative 1.3 % LAB HEMETOLOGY METHOD 12/18/2024 8:37 AM [facility] Basophils Relative 0.3 % LAB HEMETOLOGY METHOD 12/18/2024 8:37 AM [facility] Immature Granulocytes Relative 0.3 % LAB HEMETOLOGY METHOD 12/18/2024 8:37 AM [facility] Neutrophils Absolute 3.65 1.50 - 7.00 K/mcL LAB HEMETOLOGY METHOD 12/18/2024 8:[address] [facility] Lymphocytes Absolute 2.41 1.00 - 5.00 K/[facility] LAB HEMETOLOGY METHOD 12/18/2024 8:[address] [facility] Monocytes Absolute 0.71 0.20 - 1.00 K/mcL LAB HEMETOLOGY METHOD 12/18/2024 8:[address] [facility] Eosinophils Absolute 0.09 0.00 - 0.50 K/[facility] LAB HEMETOLOGY METHOD 12/18/2024 8:[address] [facility] Basophils Absolute 0.02 0.00 - 0.20 K/[facility] LAB HEMETOLOGY METHOD 12/18/2024 8:[address] [facility] Immature Granulocytes Absolute 0.02 0.00 - 0.03 K/[facility] LAB HEMETOLOGY METHOD 12/18/2024 8:[address] [facility] Blood Venous blood specimen / Unknown Venipuncture / Unknown 12/18/2024 7:43 AM EST 12/18/2024 8:31 AM EST us Katharina Castellanos DO LAB BLOOD ORDERABLES Vero l Result [facility] [address] [place] [address], [place] [phone] * Lipase (12/18/2024 7:43 AM EST) Lipase 57 13 - 75 unit/L LAB CHEMISTRY METHOD 12/18/2024 9:[address] [facility] Blood Venous blood specimen / Unknown Venipuncture / Unknown 12/18/2024 7:43 AM EST 12/18/2024 8:31 AM EST us Katharina Castellanos DO LAB BLOOD ORDERABLES Vero l Result [facility] [address] [place] [address], [place] [phone] * (ABNORMAL) Comprehensive metabolic panel (12/18/2024 7:43 AM EST) Only the most recent of3 resultswithin the time period is included. Sodium 140 133 - 145 mmol/L LAB CHEMISTRY METHOD 12/18/2024 9:07 AM [facility] Potassium 3.5 3.5 - 5.5 mmol/L LAB CHEMISTRY METHOD 12/18/2024 9:07 AM [facility] Comment:Hemolysis present Chloride 106 96 - 110 mmol/L LAB CHEMISTRY METHOD 12/18/2024 9:07 AM [facility] CO2 24 21 - 32 mmol/L LAB CHEMISTRY METHOD 12/18/2024 9:07 AM [facility] Anion Gap 10 3 - 11 LAB CHEMISTRY METHOD 12/18/2024 9:07 AM [facility] Glucose 96 70 - 100 mg/dL LAB CHEMISTRY METHOD 12/18/2024 9:07 AM [facility] BUN 42(H) 5 - 25 mg/dL LAB CHEMISTRY METHOD 12/18/2024 9:07 AM [facility] Creatinine 2.19(H) 0.70 - 1.30 mg/dL LAB CHEMISTRY METHOD 12/18/2024 9:07 AM [facility] eGFR 30(L) >=60 mL/min/1. 73m2 LAB CHEMISTRY METHOD 12/18/2024 9:07 AM [facility] Comment:Calculation based on the??Chronic Kidney Disease Epidemiology Collaboration (CKD-EPI) equation refit??without adjustment for race. BUN/Creatinine Ratio 19.2 LAB CHEMISTRY METHOD 12/18/2024 9:07 AM [facility] Calcium 6.4(L) 8.5 - 10.5 mg/dL LAB CHEMISTRY METHOD 12/18/2024 9:07 AM [facility] AST (SGOT) 34 10 - 42 unit/L LAB CHEMISTRY METHOD 12/18/2024 9:07 AM [facility] Comment:Hemolysis present ALT (SGPT) 28 10 - 60 unit/L LAB CHEMISTRY METHOD 12/18/2024 9:07 AM [facility] Alkaline Phosphatase 43 42 - 121 unit/L LAB CHEMISTRY METHOD 12/18/2024 9:07 AM [facility] Total Protein 6.5 6.0 - 8.0 g/dL LAB CHEMISTRY METHOD 12/18/2024 9:07 AM [facility] Albumin 3.1(L) 3.2 - 5.0 g/dL LAB CHEMISTRY METHOD 12/18/2024 9:07 AM [facility] Total Bilirubin 0.5 0.0 - 1.4 mg/dL LAB CHEMISTRY METHOD 12/18/2024 9:07 AM [facility] Blood Venous blood specimen / Unknown Venipuncture / Unknown 12/18/2024 7:43 AM EST 12/18/2024 8:31 AM EST us Katharina Castellanos DO LAB BLOOD ORDERABLES Vero l Result [facility] [address] [place] [address], * ECG-Outside (12/18/2024) Only the most recent of2 resultswithin the time period is included. us Provider Onbase MD ECG ORDERABLES Final Result * POC glucose manually resulted (12/14/2024 9:21 AM EST) Glucose POC 124 mg/dL Comment:non fasting Blood Capillary blood specimen / Unknown 12/14/2024 9:21 AM EST us Nicole ROSALES POINT OF CARE TEST ENTER/ED IT ORDERABLES Final Result * 12-Lead ECG (12/11/2024 5:24 PM EST) Only the most recent of2 resultswithin the time period is included. [facility] Ventricular Rate ECG 73 BPM GEMUSE Atrial Rate 73 BPM GEMUSE P-R Interval 148 ms GEMUSE QRS Duration 130 ms GEMUSE Q-T Interval 440 ms GEMUSE QTc 484 ms GEMUSE P Wave Elizabeth 76 degrees GEMUSE R Elizabeth 85 degrees GEMUSE T Elizabeth -2 degrees GEMUSE ECG Interpretation Sinus rhythm with Premature supraventricular complexes Right bundle branch block Abnormal ECG When compared with ECG of 20-NOV-2024 11:07, Premature ventricular complexes are no longer Present Confirmed by Betty ATKINSON JOHN ([id number]) on 12/11/2024 9:52:05 PM GEMUSE 12/11/2024 5:24 PM EST 12/11/2024 9:52 PM EST Brent Ojeda MD ECG ORDERABLES Final Res ult GEMUSE * Respiratory virus panel molecular study (12/11/2024 4:24 PM EST) Only the most recent of2 resultswithin the time period is included. [facility] Adenovirus Detection by PCR Not Detected Not Detected LAB MICROBIOLOGY METHOD 12/11/2024 6:04 PM [facility] Influenza A PCR Not Detected Not Detected LAB MICROBIOLOGY METHOD 12/11/2024 6:04 PM [facility] Influenza B PCR Not Detected Not Detected LAB MICROBIOLOGY METHOD 12/11/2024 6:04 PM [facility] Coronavirus 229E Not Detected Not Detected LAB MICROBIOLOGY METHOD 12/11/2024 6:04 PM [facility] Coronavirus HKU1 Not Detected Not Detected LAB MICROBIOLOGY METHOD 12/11/2024 6:04 PM [facility] Coronavirus OC43 Not Detected Not Detected LAB MICROBIOLOGY METHOD 12/11/2024 6:04 PM [facility] Coronavirus NL63 Not Detected Not Detected LAB MICROBIOLOGY METHOD 12/11/2024 6:04 PM [facility] Parainfluenza Virus 1 Not Detected Not Detected LAB MICROBIOLOGY METHOD 12/11/2024 6:04 PM [facility] Parainfluenza Virus 2 Not Detected Not Detected LAB MICROBIOLOGY METHOD 12/11/2024 6:04 PM [facility] Parainfluenza Virus 3 Not Detected Not Detected LAB MICROBIOLOGY METHOD 12/11/2024 6:04 PM [facility] Parainfluenza Virus 4 Not Detected Not Detected LAB MICROBIOLOGY METHOD 12/11/2024 6:04 PM [facility] RSV PCR Not Detected Not Detected LAB MICROBIOLOGY METHOD 12/11/2024 6:04 PM [facility] Human Metapneumovirus A and B Not Detected Not Detected LAB MICROBIOLOGY METHOD 12/11/2024 6:04 PM [facility] Rhinovirus/Entero virus Not Detected Not Detected LAB MICROBIOLOGY METHOD 12/11/2024 6:04 PM [facility] Bordetella pertussis Not Detected Not Detected LAB MICROBIOLOGY METHOD 12/11/2024 6:04 PM [facility] Bordetella parapertussis Not Detected Not Detected LAB MICROBIOLOGY METHOD 12/11/2024 6:04 PM [facility] Mycoplasma pneumo by PCR Not Detected Not Detected LAB MICROBIOLOGY METHOD 12/11/2024 6:04 PM [facility] Chlamydia pneumoniae Not Detected Not Detected LAB MICROBIOLOGY METHOD 12/11/2024 6:04 PM [facility] SARS COV-2 Not Detected Not Detected LAB MICROBIOLOGY METHOD 12/11/2024 6:04 PM [facility] Swab Both anterior nares / Unknown Non-blood Collection / Unknown 12/11/2024 4:24 PM EST 12/11/2024 4:[address] [facility] - 12/11/2024 6:04 PM EST Testing was performed using the [employer] Respiratory Pathogen PCR Assay. All results must [...] detection. Brent Ojeda MD LAB MICROBIOLOGY - GENERA L ORDERABLES Final Result Performing Organization Address [facility]/ZIP Co de Phone Number [facility] [address] [place] [address], * Troponin I High Sensitivity (12/11/2024 4:23 PM EST) [facility] High Sensitivity Troponin I 32 <=79 ng/L LAB CHEMISTRY METHOD 12/11/2024 5:[address] [facility] Blood Venous blood specimen / Unknown Venipuncture / Unknown 12/11/2024 4:23 PM EST 12/11/2024 4:[address] [facility] - 12/11/2024 5:20 PM EST High levels of biotin in samples may falsely decrease hsTroponin values. ??Use caution when interpreting hsTroponin results in patients taking biotin who exhibit renal impairment (eGFR <60) or in patients taking more than 20 mg/day of biotin. Brent Ojeda MD LAB BLOOD ORDERABLES Vero l Result Performing Organization Address [facility]/ZIP Co de Phone Number [facility] [address] [place] [address], [place] [phone] * XR Chest 2 Views (12/11/2024 4:11 PM EST) Anatomical Region Laterality Modality Body Radiographic Mary ging 12/11/2024 4:34 PM EST Impressions 12/11/2024 4:37 PM EST Impression: 1. Stable mild cardiomegaly. 2. Fine bibasilar reticular opacities, unchanged from the previous study, most likely representing interstitial fibrosis. Telerad CONNIE ([id number]) -------- FINAL REPORT -------- Dictated By: Maria Luisa España Dictated Date: 12/11/2024 16:34 ET Assigned Physician: Maria Luisa España Reviewed and Electronically Signed By: Maria Luisa España Signed Date: 12/11/2024 16:37 ET Workstation ID: [id number] Transcribed By: Self Edit Transcribed Date: 12/11/2024 [...] study,most likely representing interstitial fibrosis. [employer]eler[employer] CONNIE ([id number]) -------- FINAL REPORT -------- Dictated By: Maria Luisa España Dictated Date: 12/11/2024 16:34 ET Assigned Physician: Maria Luisa España Reviewed and Electronically Signed By: Maria Luisa España Signed Date: 12/11/2024 16:37 ET Workstation ID: [id number] Transcribed By: Self Edit Transcribed Date: 12/11/2024 16:34 ET Brent Ojeda MD IMG XR PROCEDURES Final R esult * ECG-Annotated (12/11/2024) Only the most recent of2 resultswithin the time period is included. Provider Onbase ECG ORDERABLES Final Result * POC Protime INR Blood (12/10/2024) Only the most recent of2 resultswithin the time period is included. Lot Number INR POC 3.0 Prothrombin Time POC Exp Date Blood 12/10/2024 Moris Machado MD POINT OF CARE TEST ENTER/EDIT O RDERABLES Edited Result - Final * (ABNORMAL) POCT Glucose, blood (11/23/2024 11:14 AM EST) Only the most recent of12 resultswithin the time period is included. Glucose POCT 288(H) 70 - 100 mg/dL 11/23/2024 11:[address] [facility] Blood Capillary blood specimen / Unknown 11/23/2024 11:14 AM EST 11/23/2024 11:16 AM EST Lori Serrato MD LAB POINT OF CARE TE ST DOCKED DEVICE UNSOLICITED RESULTS Final Result [facility] [address] [place] [address], * (ABNORMAL) Manual differential (11/23/2024 5:57 AM EST) Only the most recent of2 resultswithin the time period is included. Neutrophils % 96.0 % LAB HEMETOLOGY METHOD 11/23/2024 8:05 AM [facility] Lymphocytes % 3.0 % LAB HEMETOLOGY METHOD 11/23/2024 8:05 AM [facility] Monocytes % 1.0 % LAB HEMETOLOGY METHOD 11/23/2024 8:05 AM [facility] Eosinophils % 0.0 % LAB HEMETOLOGY METHOD 11/23/2024 8:05 AM [facility] Basophils % 0.0 % LAB HEMETOLOGY METHOD 11/23/2024 8:05 AM [facility] Neutrophils Absolute Manual 22.46(H) 1.50 - 7.00 K/mcL LAB HEMETOLOGY METHOD 11/23/2024 8:05 AM [facility] Lymphocytes Absolute 0.70(L) 1.00 - 5.00 K/mcL LAB HEMETOLOGY METHOD 11/23/2024 8:05 AM [facility] Monocytes Absolute Manual 0.23 0.20 - 1.00 K/mcL LAB HEMETOLOGY METHOD 11/23/2024 8:05 AM [facility] Eosinophils Absolute Manual 0.00 0.00 - 0.50 K/mcL LAB HEMETOLOGY METHOD 11/23/2024 8:05 AM [facility] Basophils Absolute Manual 0.00 0.00 - 0.20 K/mcL LAB HEMETOLOGY METHOD 11/23/2024 8:05 AM [facility] Rbc Morphology Consistent with indices Consistent with indices, Normal for [place] LAB HEMETOLOGY METHOD 11/23/2024 8:05 AM [facility] Platelet Morphology - WAM See Note(A) Normal LAB HEMETOLOGY METHOD 11/23/2024 8:05 AM [facility] Comment:PLT: Normal Blood Venous blood specimen / Unknown Venipuncture / Unknown 11/23/2024 5:57 AM EST 11/23/2024 6:48 AM EST us [facility] LAB BLOOD ORDERABLES Final R esult [facility] [address] [place] [address], * (ABNORMAL) Basic metabolic panel (11/23/2024 5:57 AM EST) Only the most recent of3 resultswithin the time period is included. Sodium 139 133 - 145 mmol/L LAB CHEMISTRY METHOD 11/23/2024 7:37 AM [facility] Potassium 3.7 3.5 - 5.5 mmol/L LAB CHEMISTRY METHOD 11/23/2024 7:37 AM [facility] Chloride 102 96 - 110 mmol/L LAB CHEMISTRY METHOD 11/23/2024 7:37 AM [facility] CO2 29 21 - 32 mmol/L LAB CHEMISTRY METHOD 11/23/2024 7:37 AM [facility] Anion Gap 8 3 - 11 LAB CHEMISTRY METHOD 11/23/2024 7:37 AM [facility] Glucose 139(H) 70 - 100 mg/dL LAB CHEMISTRY METHOD 11/23/2024 7:37 AM [facility] BUN 55(H) 5 - 25 mg/dL LAB CHEMISTRY METHOD 11/23/2024 7:37 AM [facility] Creatinine 1.98(H) 0.70 - 1.30 mg/dL LAB CHEMISTRY METHOD 11/23/2024 7:37 AM [facility] eGFR 34(L) >=60 mL/min/1. 73m2 LAB CHEMISTRY METHOD 11/23/2024 7:37 AM [facility] Comment:Calculation based on the??Chronic Kidney Disease Epidemiology Collaboration (CKD-EPI) equation refit??without adjustment for race. BUN/Creatinine Ratio 27.8 LAB CHEMISTRY METHOD 11/23/2024 7:37 AM [facility] Calcium 8.8 8.5 - 10.5 mg/dL LAB CHEMISTRY METHOD 11/23/2024 7:37 AM [facility] Blood Venous blood specimen / Unknown Venipuncture / Unknown 11/23/2024 5:57 AM EST 11/23/2024 6:52 AM EST us Lori Serrato MD LAB BLOOD ORDERABLES Final R esult [facility] [address] [place] [address], [place] [phone] * SST tube (11/22/2024 1:34 PM EST) Extra Tube Hold for add-ons. 11/22/2024 3:[address] [facility] Comment:Auto resulted. Blood Venous blood specimen / Unknown Venipuncture / Unknown 11/22/2024 1:34 PM EST 11/22/2024 1:49 PM EST us Lori Serrato MD LAB BLOOD ORDERABLES Final R esult [facility] [address] [place] [address], [place] [phone] * Lavender tube (11/22/2024 1:34 PM EST) Extra Tube Hold for add-ons. 11/22/2024 3:01 PM EST [facility] Comment:Auto resulted. Blood Venous blood specimen / Unknown Venipuncture / Unknown 11/22/2024 1:34 PM EST 11/22/2024 1:49 PM EST us [facility] LAB BLOOD ORDERABLES Final R esult [facility] [address] [place] [address], [place] [phone] * CT Chest wo Contrast (11/20/2024 5:01 [...] unremarkable. The bones are intact. Procedure Note Aderhjamiet-Brianda Davila MD - 11/20/2024 CT chest without [...] by: Brianda Davila MD on 11/20/2024 18:14:55 us Sarkis Bosch MD IMG CT PROCEDURES Final Result * XR Chest 1 View (11/20/2024 11:24 [...] Signed Date: 11/20/2024 11:40 ET Workstation ID: [id number] Transcribed By: Self Edit Transcribed Date: 11/20/2024 [...] Signed Date: 11/20/2024 11:40 ET Workstation ID: [id number] Transcribed By: Self Edit Transcribed Date: 11/20/2024 11:37 ET us Davidson Hebert MD IMG XR PROCEDURES Final Res ult * Procalcitonin (11/20/2024 11:07 AM EST) Procalcitonin 0.14 <=0.16 ng/mL LAB CHEMISTRY METHOD 11/21/2024 8:[address] [facility] Blood Venous blood specimen / Unknown Venipuncture / Unknown 11/20/2024 11:07 AM EST 11/20/2024 11:[address] [facility] - 11/21/2024 8:35 AM EST [...] obtained. Sarkis Bosch MD LAB BLOOD ORDERABLES Final Res ult Performing Organization Address [facility]/ZIP Co de Phone Number [facility] [address] [place] [address], [place] [phone] * (ABNORMAL) B-type natriuretic peptide (11/20/2024 11:07 AM EST) BNP 267(H) <=100 pcg/mL LAB CHEMISTRY METHOD 11/20/2024 2:[address] [facility] Blood Venous blood specimen / Unknown Venipuncture / Unknown 11/20/2024 11:07 AM EST 11/20/2024 11:24 AM EST Davidson Hebert MD LAB BLOOD ORDERABLES Final Result Performing Organization Address [facility]/ZIP Co de Phone Number [facility] [address] [place] [address], [place] [phone] * (ABNORMAL) Microalbumin creatinine urine ratio (10/09/2024 10:07 AM EST) Creatinine, Urine 141.0 mg/dL LAB CHEMISTRY METHOD 10/09/2024 1:[address] [facility] Microalb, Ur 267.0(H) 0.0 - 29.0 mg/L LAB CHEMISTRY METHOD 10/09/2024 1:[address] [facility] Microalb/Crea t Ratio 189(H) <30 mg/g creat LAB CHEMISTRY METHOD 10/09/2024 1:[address] [facility] Urine Urine specimen obtained by clean catch procedure / Unknown Non-blood Collection / Unknown 10/09/2024 10:07 AM EST 10/09/2024 10:07 AM EST us Moris Machado MD LAB URINE ORDERABLES Final Resu lt [facility] [address] [place] [address], [place] [phone] * Lipid panel with reflex to direct LDL (10/09/2024 9:57 AM EST) Cholesterol 129 0 - 200 mg/dL LAB CHEMISTRY METHOD 10/09/2024 3:21 PM [facility] Triglycerides 129 0 - 150 mg/dL LAB CHEMISTRY METHOD 10/09/2024 3:21 PM [facility] HDL 56 >=40 mg/dL LAB CHEMISTRY METHOD 10/09/2024 3:21 PM [facility] LDL Calculated 47 0 - 100 mg/dL LAB CHEMISTRY METHOD 10/09/2024 3:21 PM [facility] VLDL Cholesterol Oliverio 25.8 mg/dL LAB CHEMISTRY METHOD 10/09/2024 3:21 PM [facility] Non HDL Chol. (LDL+VLDL) 73 <145 mg/dL LAB CHEMISTRY METHOD 10/09/2024 3:21 PM [facility] Chol/HDL Ratio 2.3 0.0 - 4.4 LAB CHEMISTRY METHOD 10/09/2024 3:21 PM [facility] Blood Venous blood specimen / Unknown Venipuncture / Unknown 10/09/2024 9:57 AM EST 10/09/2024 9:57 AM EST us Moris Machado MD LAB BLOOD ORDERABLES Final Resu lt Performing Organization Address City/[facility]/ZIP Co de Phone Number [facility] [address] [place] [address], [place] [phone] * Diabetes Eye Exam (02/17/2024) Diabetes: Annual Retina Eye Exam abstracted Historical Provider MD HEALTH MAINTENANCE Final Result * Depression Screening (12/08/2023) Depression Screening abstracted Historical Provider MD HEALTH MAINTENANCE Final Result * Falls Risk Assessment (11/09/2023) Falls Risk Assessment abstracted Historical Provider MD HEALTH MAINTENANCE Final Result from Last 3 Months or Most Recently Relevant to Health Maintenance Insurance [employer] Member Subscriber Plan / Payer (Ef fective 2024-Present) Name:Tommy Love Relation to Subscriber:Self Name:Tommy Love Payer ID:[id number] Group ID:[id number] Type:Not on file Address: [place] [address] [address] [phone] Advance Directives * Full Code - Confirmed [...] Agents on File Name Relationship Healthcare Agent Relationshi p Communication Marissa Love Spouse Health Care Agent Care Teams Editing Intern Relationship Specialty Start Date End Date Moris Machado MD [address] [place] [address] PCP - General Internal Medicine 10/09/24
--- OUTSIDE RECORDS SUMMARY | 2025-02-08 14:36 | XMS_ITS | Encounter Summary ---
Author Organization [facility] Address [address] [place] [address] Care Team Providers Care Storyboard Artist Name Role Phone Moris Machado MD Primary Care Provider [phone] Reason for Visit * Reason Onset Date Comments faxed orders 01/04/2025 Faxed orders rec eived from [facility] [id number], [id number], [id number] please sign and fax to [phone]. Encounter Details Date Type Department Care Team (Late st Contact Info) Description 01/04/2025 Telephone Adult Medicine [address] [phone] Moris Machado MD [address] [place] [phone] faxed orders (Faxed orders received from [facility] [phone], [id number], [id number] please sign and fax to [phone].) Social History Tobacco Use Types Packs/Day Years [...] Description 03/21/2025 10:00 AM EDT Office Visit [address] [phone] Nicole Samson PA [address] [place] [address] 06/19/2025 11:00 AM EDT Office Visit Adult Medicine South - [address] [phone] Juan Velasquez PA [address] [place] [address] documented as of this encounter Visit Diagnoses Not on filedocumented in this encounter Additional Health Concerns Assessment Noted Time PHQ-9 Depression Total Score: 7 12/10/19 25 11:19 AM EST A fall risk assessment has been complete d for the patient 12/10/2024 11:17 AM EST documented as of this encounter Care Teams Storyboard Artist Relationship Specialty Start Date End Date Moris Machado MD [address] [place] [id number] PCP - General Internal Medicine 10/09/24 documented as of this encounter
--- OUTSIDE RECORDS SUMMARY | 2025-02-08 14:36 | XMS_ITS | Encounter Summary ---
Author Organization [facility] Address [address] [facility] [address] [place] [address] Phone Care Team Providers Care Trimmer Operator Three Knife Name Role Phone Moris Machado MD Primary Care Provider Encounter Details Date Type Department Care Team (Late st Contact Info) Description 02/27/2024 Office Communication [facility] [address] [facility] [address] [place] [phone] Davidson Quinonez MD [address] [facility] [address] [place] [phone] Social History Tobacco Use Types Packs/Day Years [...] Visit [facility] [address] [place] [phone] Davidson Quinonez MD [address] [address] documented as of this encounter Visit Diagnoses Not on filedocumented in this encounter Care Teams Trimmer Operator Three Knife Relationship Specialty Start Date End Date Moris Machado MD [address] [place] [address] PCP - General Internal Medicine 04/26/23 documented as of this encounter
--- OUTSIDE RECORDS SUMMARY | 2025-02-08 14:36 | XMS_ITS | Encounter Summary ---
Author Organization [facility] Address [address] [place] [address] Care Team Providers Care 2Nd Pressman Name Role Phone Moris Machado MD Primary Care Provider [phone] Reason for Visit * Reason Onset Date Comments faxed orders 01/31/2025 Faxed orders rec eived from [facility] [phone] please sign and fax to [phone]. Encounter Details Date Type Department Care Team (Late st Contact Info) Description 01/31/2025 Telephone Adult Medicine [address] [phone] Moris Machado MD [address] [place] [phone] faxed orders (Faxed orders received from [facility] [phone] please sign and fax to [phone].) Social History Tobacco Use Types Packs/Day Years [...] Notes * Remedios Silverman MA - 02/07/2025 12:32 PM EDT SIGNED SCANNED AND E-FAXED documented in this encounter Plan of Treatment Upcoming Encounters Date Type Department Care Team (Late st Contact Info) Description 03/21/2025 10:00 AM EDT Office Visit Endocrinology [address] [phone] Nicole Samson PA [address] [place] [address] 06/19/2025 11:00 AM EDT Office Visit Adult [facility] [place] [address] [phone] Juan Velasquez PA [address] [place], [place] documented as of this encounter Visit Diagnoses Not on filedocumented in this encounter Additional Health Concerns Assessment Noted Time PHQ-9 Depression Total Score: 7 12/10/19 25 11:19 AM EST A fall risk assessment has been complete d for the patient 12/10/2024 11:17 AM EST documented as of this encounter Care Teams 2Nd Pressman Relationship Specialty Start Date End Date Moris Machado MD [address] [place] [address] PCP - General Internal Medicine 10/09/24 documented as of this encounter
== END 2025-02-08 13:37 | disposition home or self-care (01) ==
LOC: HO.HCS 13:02
PROVIDERS: PCP Internal Medicine; Visit Provider Nurse Practitioner Family
DX: I50.30 Unspecified diastolic (congestive) heart failure (principal); I48.91 Unspecified atrial fibrillation; I47.10 Supraventricular tachycardia, unspecified; I27.20 Pulmonary hypertension, unspecified; Z09 Encounter for follow-up examination after completed treatment for conditions other than malignant neoplasm
CPT/HCPCS: 99214; G2211

== ENCOUNTER → 2025-02-08 13:01 | Outpatient (BNVA) | payer OTHER, SELFPAY | PROVIDERS: PCP Internal Medicine; Visit Provider Nurse Practitioner Family | DX: Z09 Encounter for follow-up examination after completed treatment for conditions other than malignant neoplasm (principal); I50.30 Unspecified diastolic (congestive) heart failure; I48.91 Unspecified atrial fibrillation; I47.10 Supraventricular tachycardia, unspecified; I27.20 Pulmonary hypertension, unspecified | CPT/HCPCS: 99212 ==

== ENCOUNTER 2025-02-13 11:07 | Outpatient (AMB) | payer OTHER, SELFPAY ==
--- NOTE | 2025-02-13 11:11 | MHC.OFFVIS ---
Vital Signs 02/13/25 11:12 Height 5 ft 10 in Weight 182 lb 15.739 oz BMI 26.3 BP 114/62 Blood Pressure Location Rt brachial Position Sitting Pulse 97 Pulse Source Pulse Oximeter Pulse Oximetry (%) 90 L Oxygen Delivery Method Nasal Cannula Oxygen Flow Rate 4 Intake Visit Reasons: Pulmonary HTN Allergies No Known Allergies Allergy (Unknown, Verified 02/13/25 11:15) NOT APPLICABLE HPI Comments Details: The patient is 79-year-old gentleman with a known history of emphysema, interstitial lung disease along with severe pulmonary hypertension on hot oxygen requirements. He has been followed closely at [place]. The patient was evaluated and placed on prednisone, initially starting at 10 mg and now 7.5 mg in part to treat the interstitial lung disease likely related to the underlying connective tissue disease. Recently he was admitted to the hospital worsening shortness of breath. He was treated appropriately. He did have a CT scan of the chest that I personally reviewed. He does have moderate to severe emphysema and also bilateral interstitial lung disease. No significant change when compared to 2020 which is reassuring that is not significantly progressive. However, patient also had an echocardiogram demonstrating very severe elevations in his pulmonary pressures with a very dilated RV concerning for potentially even higher pulmonary arterial pressures. During the visit we did go for brief walking oximetry in the patient did desaturate in the pulse oxygen that he came in with and at rest he did need 4 L continuous oxygen. Explained to him that the pulse does not work for him. He needs to be on continues oxygen and he is agreeable to this and will make arrangements with his [employer] company. In addition that with walking on 6 L he barely was able to keep a 88%. Therefore, I will request an Oxymizer pendant from his [employer] company in order to provide him enough oxygen. I do believe that his pulmonary hypertension is out of proportion to those pulmonary disease that he has. In his EF and left ventricular anatomy appears to be normal. Therefore, I do believe that considering a basal dilator to treat severe pulmonary hypertension that is out of proportion to his underlying pulmonary disease would be reasonable. The patient does have connective tissue disease which can predispose to group 1 pulmonary hypertension. 02/17/2024 the patient is here for a pulmonary follow-up visit. He has doing a little better. His oxygen requirements have decreased a little bit. No longer requires an Oxymizer pendant. Although the conserving device is not sufficient. He did come in with a pulse ox in the low 80s on his 3-4 L pulse. Therefore the patient needs to be on continues oxygen. We did provide him an operative tank poor continues oxygen at this time. He needs to use 2 L at rest and 3 L with activity. His degree of respiratory failure is primarily due to his pulmonary hypertension. He is severe pulmonary hypertension based on his echo with a very dilated RV. The patient was approved to start sildenafil. But, then his insurance changed and the patient was not aware and therefore he was not able to start the medication. He had a very abnormal echocardiogram. Again consistent with WHO group 1. therefore, we will request the patient started on sildenafil again will hopes that we can control his pulmonary hypertension in therefore decrease his significant oxygen requirements. Once the patient is on the vasodilators therapy we can repeat his 6 minute walk test in hopes that he can tolerate a conserving device and have an easier time carrying the oxygen. Also to note, the patient does have significant daytime drowsiness. Will go ahead and request an in-law his [place] score is elevated 10/21. Will request an in-lab sleep study at this time. 06/14/2024 the patient is here for pulmonary follow-up visit. Overall he was recently hospitalized with acute on chronic hypoxic respiratory failure. The patient did respond well to steroids. He currently is on 7.5 mg of prednisone. In addition to that he has been on the sildenafil for the pulmonary hypertension. While in the hospital he did have a CT scan of the chest that I did personally review with him in the family. 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 At this point will continue him on the sildenafil 20 mg. Will request an echocardiogram prior to his next visit however. He does want have a portable oxygen concentrator. Explained to him that his oxygen requirements are too high. We did try him on 5 L pulse while resting his oxygen was only about 86%. He understands that he will need a continuous flow portable oxygen concentrator and does her not covered by the [employer] would have to be an [id number] expense be very expensive. I will talk to the [employer] company in order for him to get oxygen tanks prefilled because he is having hard time with filling station and also with the [id number] to be able to carry the the cylinder oxygen tanks with more ease. The patient does require 4 L of oxygen at rest and also requires up to 6 L with activity. 09/21/2024 the patient is here for a pulmonary follow-up visit. Overall he is feeling well. He continues to use his oxygen with good effect. He is tolerating the sildenafil. The patient has been on 20 mg 3 times a day. He did have a repeat echocardiogram demonstrating the PA pressures decreasing from 75 mmHg down to 49 mmHg which is reassuring. He continues to have significant oxygen requirements however. This is likely multifactorial. Based on the fact that he still has moderate degree of pulmonary hypertension will try to increase the sildenafil slowly to make sure does not develop any adverse hypoxia flash edema. He will take it 1/2 tablets and then increase it to 2 tablets 3 times a day. We can also add a 2nd agent which would be reasonable if he continues to have elevated pressures and continues have significant hypoxia. We did try him on a portable oxygen concentrator but he did not qualify. He is still requiring 6 L with activity. We did check ear probe in addition to a finger probe and they both were given low numbers. Will go ahead heading request a arterial blood gas to better get a sense of oxygen partial pressure and see adequate oxygenation in that matter. He is going to do that once he is able to come into the hospital and have that done. In addition to that he did have a CT scan back in April demonstrating 1.1 cm pulmonary nodule among others. He also has interstitial lung disease and emphysema. Will go ahead and repeat a CT scan prior to the next visit to assess his nodular density. Based on his oxygen needs and is decompensated state will be difficult to perform any semi invasive interventions or diagnostic interventions. 11/15/2024 the patient is here for a pulmonary follow-up visit. The patient overall has been doing okay. He was recently hospitalized. While in hospital the patient was increased on the sildenafil to 40 mg t.i.d. which she seems to be tolerating. His oxygen needs are still high. Explained to him that the basal dilator may also increase his oxygen needs. But at least the pulmonary pressures have come down nicely. The patient also has underlying pulmonary fibrosis. He did have a recent CT scan of the chest which I personally reviewed with him and his son. Seems like the interstitial lung disease is a little bit worse. He has been on 10 mg of prednisone that has been helpful but at this time I do believe that will benefit from Ofev to try to minimize worsening interstitial lung disease and pulmonary fibrosis. Will go ahead and sign a consent and will 5 request the medication from the specialty pharmacy in once he gets the approval from the insurance. We did talk about the side effects of the medication including the diarrhea. For now he will continue with current respiratory regimen. Will wait to hear about the office. The patient will return in 3 months with PFTs. The patient has any issues prior to that he will call for an earlier assessment. 12/27/2024 patient is here for a pulmonary hospital follow-up visit. Patient was briefly admitted to [facility] with worsening respiratory symptoms. He did have a chest x-ray which I personally reviewed demonstrating some increased haziness over the right hilar basilar area. He was treated for COPD exacerbation. Subsequently discharged. He is feeling better he still on 40 mg of prednisone. He is based on prednisone 10 mg. He also started the Ofev which she seems to be tolerating well. Initially he had significant diarrhea and vomiting but not subsided. He is happy with the feels like it is working. He is also continues on the 40 mg of Revatio that he takes 3 times a day for his pulmonary hypertension. Will go ahead and wean down the prednisone hopefully down to 10 mg. But if he has any difficulties doing so he will call me. I did send additional prednisone to the pharmacy. He did have PFTs scheduled for tomorrow hold off on those right now and postpone them to sometime in 6-8 weeks when he comes back. We did talk about pulmonary rehabilitation. The patient is resistant right now because of the cold weather. Will reassess after his PFTs we can consider [facility] since he lives in [place]. 02/13/2025 the patient is here for pulmonary follow-up visit. Overall she is feeling better. He is tolerating the 10 mg of prednisone. Although he is getting little cushingoid. Also been on the Ofev and he has been tolerating that well. However, for some reason he has not been able refill it at the pharmacy. He is going to try calling again and I did confirm that we did fax her with a prescription back in December. She has any difficulties doing so he will call the office and we can then try to reflux the order again. He is also taking the Revatio 40 mg 3 times a day seems to be tolerating that well. Oxygen requirements are still high. He needs about 4-6 L of oxygen with activity. Today when he came into the office he was saturating the 70s on 4 L continuous. He needs to have a Oxymizer pendant when he walks portable oxygen outside of the home. I did request another order for Oxymizer pendant from his [employer] company, [employer]. Also is feeling station is very slow and he needs additional tanks. Therefore I did also reach out to the [employer] company, [employer] to check his filling station to make sure that is working appropriately. He is going to continue with the current respiratory therapy. Will plan to have him come follow-up again in 3-4 months. He will continue with the prednisone of 10 in addition to the other therapies. Once he returns we can plan to schedule his repeat echocardiogram and we can also think about repeating imaging studies. [facility] Medical History COPD exacerbation Pulmonary nodule 1 cm or greater in diameter Combined pulmonary fibrosis and emphysema (CPFE) (HFpEF) heart failure with preserved ejection fraction IPF (idiopathic pulmonary fibrosis) COPD (chronic obstructive pulmonary disease) Reactive airway disease Pulmonary hypertension Chronic respiratory failure CHF (congestive heart failure) ILD (interstitial lung disease) Acute exacerbation of CHF (congestive heart failure) SVT (supraventricular tachycardia) CHF exacerbation Chronic anticoagulation Atrial fibrillation Chronic hypoxemic respiratory failure Hypertension Rheumatoid arthritis Lymphadenopathy Surgical History Hx of colonoscopy Social History Household Members: Spouse and Children Housing: House Do you presently have visiting nurse or other home services: No Alcohol intake: former Comment: patient rings appropriately Patient Tobacco Use Status: Former Tobacco user Tobacco use type: Cigarette Years Smoked: 40 e-Cigarette/Vaping Use: Former Use Second Hand Smoke Exposure: No Advance Directives Date on File: 06/27/23 service: No Current occupational status: retired Review of Systems Const All systems reviewed & are unremarkable except as noted in HPI and below ENT Denies dizziness Card Details: wears O2 continually Denies chest pain, Denies chest pain at rest, Denies chest pain with activity, Denies rapid heart rate, Denies pedal edema, Denies edema, Denies leg edema, Denies lightheadedness, Denies palpitations, Reports dyspnea, Reports dyspnea on exertion and Denies orthopnea Resp Denies cough, Reports dyspnea and Reports dyspnea on exertion GI Denies hematochezia and Denies change in stool character Musc Denies abnormal gait, Denies limited range of motion, Denies muscle cramps, Denies muscle weakness, Denies numbness, Denies radiating pain into limb, Denies stiffness and Denies tingling Neuro Denies abnormal gait, Denies dizziness, Denies numbness and Denies tingling Endo Denies palpitations Physical Exam Vital Signs: Last Vital Signs Pulse 97 02/13/25 11:12 BP 114/62 02/13/25 11:12 Pulse Ox 90 L 02/13/25 11:12 Oxygen Delivery Method Nasal Cannula 02/13/25 11:12 Oxygen Flow Rate 4 02/13/25 11:12 BMI result Body Mass Index 26.3 Last Vital Signs Temp 96.8 F 05/23/24 07:05 Pulse 63 05/23/24 07:49 Resp 16 05/23/24 07:05 BP 138/63 05/23/24 07:49 Pulse Ox 93 05/23/24 07:05 O2 Del Method Oxymask 05/23/24 07:05 O2 Flow Rate 7 05/23/24 07:05 Oxygen Flow Rate 8 05/22/24 12:36 BMI result Body Mass Index 24.9 Const General: alert HEENT Head: Yes normocephalic Neck Neck: Yes normal visual inspection, Yes full ROM and Yes no lymphadenopathy Chest Chest palpation & inspection: normal inspection of the chest Resp Effort & Inspection: normal respiratory effort Auscultation: rales, no rhonchi and diminished lung sounds Cardio Rate: regular rate Rhythm: regular rhythm Heart sounds: S1 normal heart sound present and S2 normal heart sound present GI Palpation (GI): Soft to palpation and nontender Auscultation: normal bowel sounds Skin General skin exam: no rashes or lesions noted Extrem General: Yes clubbing and No cyanosis Results Reviewed Results Reviewed: personally reviewed ECHO with decreased PA pressures Assessment & Plan Assessment & Plan (1) COPD (chronic obstructive pulmonary disease): Code(s): J44.9 - Chronic obstructive pulmonary disease, unspecified Category: Medical Qualifiers: COPD type: COPD with acute exacerbation Qualified Code(s): J44.1 - Chronic obstructive pulmonary disease with (acute) exacerbation (2) Chronic respiratory failure: Code(s): J96.10 - Chronic respiratory failure, unspecified whether with hypoxia or hypercapnia Category: Medical Qualifiers: Respiratory failure complication: hypoxia Qualified Code(s): J96.11 - Chronic respiratory failure with hypoxia (3) Pulmonary hypertension: Comment: WHO group 1 Code(s): I27.20 - Pulmonary hypertension, unspecified Category: Medical (4) ILD (interstitial lung disease): Code(s): J84.9 - Interstitial pulmonary disease, unspecified Category: Medical (5) Combined pulmonary fibrosis and emphysema (CPFE): Code(s): J43.9 - Emphysema, unspecified; J84.10 - Pulmonary fibrosis, unspecified Category: Medical (6) Pulmonary nodule 1 cm or greater in diameter: Code(s): R91.1 - Solitary pulmonary nodule Category: Medical Plan continue PD5 inhibitor, sildenafil 40mg PO TID for Pulmonary HTN continue OFEV for interval worsening of pulmonary fibrosis Continue Breo JORGITO as needed Oxygen revision: 4L/min at rest, 6L/min with activity. requesting oximizer pendant while out side of the home diuresis as tolerated prednisone taper 10mg daily ECHO was better PAP 79->49 mmHg F/U in 4 months Medications: New doxycycline hyclate 100 mg PO BID 20 caps 0RF 10 days Coding Level of Care Code Est Pt Level 5 (02530) Complex EM visit Add On G2211 Diagnoses Centrilobular emphysema J44.1 COPD type: COPD with acute exacerbation Chronic respiratory failure with hypoxia J96.11 Respiratory failure complication: hypoxia Pulmonary hypertension I27.20 ILD (interstitial lung disease) J84.9 Combined pulmonary fibrosis and emphysema (CPFE) J43.9; J84.10 Pulmonary nodule 1 cm or greater in diameter R91.1 Time Spent (min) 45
[2025-02-13 11:12] VITALS: BP 114/62; PULSE 97; O2SAT 90; BMI 26.3
--- OUTSIDE RECORDS SUMMARY | 2025-02-13 13:29 | XMS_ITS | Encounter Summary ---
Author Organization [facility] Address [address] [place] [address] Care Team Providers Care Accounting Clerk Name Role Phone Moris Machado MD Primary Care Provider [phone] Encounter Details Date Type Department Care Team (Late Contact Info) Description 01/23/2025 Billing Patient Not Present Adult Medicine [address] [phone] Moris Machado MD [address] [place] [address] Social History Tobacco Use Types Packs/Day Years [...] Description 03/21/2025 10:00 AM EDT Office Visit [address] [phone] Nicole Samson PA [address] [place] [address] 06/19/2025 11:00 AM EDT Office Visit Adult Medicine [facility] [address] [place] [phone] Juan Velasquez PA [address] [place] [address] documented as of this encounter Visit Diagnoses Not on filedocumented in this encounter Additional Health Concerns Assessment Noted Time PHQ-9 Depression Total Score: 7 12/10/19 25 11:19 AM EST A fall risk assessment has been complete d for the patient 12/10/2024 11:17 AM EST documented as of this encounter Care Teams Accounting Clerk Relationship Specialty Start Date End Date Moris Machado MD [address] [place] [address] PCP - General Internal Medicine 10/09/24 documented as of this encounter
--- OUTSIDE RECORDS SUMMARY | 2025-02-13 13:29 | XMS_ITS | Encounter Summary ---
Author Organization [facility] Address [address] [place] [address] Care Team Providers Care Rrt Name Role Phone Moris Machado MD Primary Care Provider [phone] Encounter Details Date Type Department Care Team (Late Contact Info) Description 01/25/2025 Billing Patient Not Present Adult Medicine [address] [phone] Moris Machado MD [address] [place] [address] Social History Tobacco Use Types Packs/Day Years [...] Description 03/21/2025 10:00 AM EDT Office Visit [address] [phone] Nicole Samson PA [address] [place] [address] 06/19/2025 11:00 AM EDT Office Visit Adult Medicine [facility] [address] [place] [phone] Juan Velasquez PA [address] [place] [address] documented as of this encounter Visit Diagnoses Not on filedocumented in this encounter Additional Health Concerns Assessment Noted Time PHQ-9 Depression Total Score: 7 12/10/19 25 11:19 AM EST A fall risk assessment has been complete d for the patient 12/10/2024 11:17 AM EST documented as of this encounter Care Teams Rrt Relationship Specialty Start Date End Date Moris Machado MD [address] [place] [address] PCP - General Internal Medicine 10/09/24 documented as of this encounter
--- OUTSIDE RECORDS SUMMARY | 2025-02-13 13:29 | XMS_ITS | Encounter Summary ---
Author Organization [facility] Address [address] [place] [address] Care Team Providers Care State Patrol Officer Name Role Phone Moris Machado MD Primary Care Provider [phone] Reason for Visit * Reason Comments Hospital Follow-up Encounter Details Date Type Department Care Team (Late st Contact Info) Description 01/17/2025 10:30 AM EST Office Visit Adult Medicine [address] [phone] Moris Machado MD [address] [place] [address] Acute on chronic respiratory failure, unspecified whether [...] admitted to the [facility] from 12/22-12/24/2024 Pt presented with dyspnea and [...] (sukumar) Pt follows with cardiology this month [facility] Pt notes sugars have been controlled [...] Problem List Diagnosis Date Noted Atrial fibrillation ([facility]) 10/26/2024 custodial (current) use of anticoagulants 10/26/2024 Diabetes mellitus due to underlying condition, uncontrolled, with hyperglycemia ([facility]) 11/12/2023 Secondary diabetes mellitus ([facility]) 11/12/2023 (HFpEF) heart failure with preserved ejection fraction ([facility]) 08/11/2023 Chronic hypoxemic respiratory failure ([facility]) 08/11/2023 SOB (shortness of breath) 08/11/2023 SVT (supraventricular tachycardia) ([facility]) 08/11/2023 Renal osteodystrophy 08/04/2023 Stage 3b chronic kidney disease ([facility]) 08/04/2023 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[facility]) 08/04/2023 Heart failure ([facility]) 06/26/2023 Pulmonary HTN ([facility]) 05/19/2023 Influenza 03/05/2022 Lymphadenopathy 03/05/2022 ILD (interstitial lung disease) ([facility]) 11/30/2021 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 Old PR (myocardial infarction) 06/12/2015 Glaucoma 06/05/2012 A-fib ([facility]) 03/16/2012 CAD (coronary artery disease) 03/16/2012 HLD (hyperlipidemia) 03/16/2012 HTN (hypertension) 03/16/2012 Seropositive rheumatoid arthritis ([facility]) 03/16/2012 SOCIAL HISTORY: Social History Tobacco Use [...] failure, unspecified whether with hypoxia or hypercapnia ([facility]) 2. Hypokalemia 3. Primary hypertension 4. Type 2 diabetes mellitus with chronic kidney disease, with long-term current use of insulin, unspecified CKD stage ([facility]) 5. Pure hypercholesterolemia 6. Encounter for long-term (current) use of medications 7. Heart failure with preserved ejection fraction, unspecified HF chronicity ([facility]) 8. Diabetes mellitus due to underlying condition, uncontrolled, with hyperglycemia ([facility]) 9. Chronic hypoxemic respiratory failure ([facility]) 10. ILD (interstitial lung disease) ([facility]) 11. Chronic obstructive pulmonary disease, unspecified COPD type ([facility]) PLAN: Pt with hospital stay last month [...] 03/21/2025 10:00 AM EDT Office Visit Endocrinology [address] [phone] Nicole Samson PA [address] [place] [address] 06/19/2025 11:00 AM EDT Office Visit Adult Medicine [facility] - [address] [phone] Juan Velasquez PA [address] [place], [place] Scheduled Orders Name Type Priority Associated Diagnoses Orde r Schedule Lipid panel with reflex to direct LDL Lab Routine Pure hypercholesterolemia 1 Occurrences starting 01/17/2025 until 01/17/2026 Comprehensive metabolic panel Lab Routine Hypokalemia Primary hypertension Type 2 diabetes mellitus with chronic kidney disease, with long-term current use of insulin, unspecified CKD stage ([facility]) Encounter for long-term (current) use of medications 1 Occurrences starting 01/17/2025 until 01/17/2026 Microalbumin creatinine urine ratio Lab Routine Type 2 diabetes mellitus with chronic kidney disease, with long-term current use of insulin, unspecified CKD stage ([facility]) 1 Occurrences starting 01/17/2025 until 01/17/2026 documented as of this encounter Visit Diagnoses Diagnosis Acute on chronic respiratory failure, unspecified whether with hypoxia or hypercapnia ([facility])- Primary Hypokalemia Hypopotassemia Primary hypertension Unspecified essential hypertension Type 2 diabetes mellitus with chronic kidney disease, with long-term current use of insulin, unspecified CKD stage ([facility]) Pure hypercholesterolemia Encounter for long-term (current) use of medications Encounter for long-term (current) use of other medications Heart failure with preserved ejection fraction, unspecified HF chronicity ([facility]) Diabetes mellitus due to underlying condition, uncontrolled, with hyperglycemia ([facility]) Chronic hypoxemic respiratory failure ([facility] Chronic respiratory failure ILD (interstitial lung disease) ([facility]) Postinflammatory pulmonary fibrosis Chronic obstructive pulmonary disease, unspecified COPD type ([facility]) documented in this encounter Discontinued Medications Medication [...] documented as of this encounter Care Teams State Patrol Officer Relationship Specialty Start Date End Date Moris Machado MD [address] [place] [address] PCP - General Internal Medicine 10/09/24 documented as of this encounter
--- OUTSIDE RECORDS SUMMARY | 2025-02-13 13:29 | XMS_ITS | Encounter Summary ---
Author Organization [facility] Address [address] [place] [address] Care Team Providers Care Electron Tube Assembler Name Role Phone Moris Machado MD Primary Care Provider Encounter Details Date Type Department Care Team (Late Contact Info) Description 01/25/2025 Billing Patient Not Present Adult Medicine [address] [phone] Moris Machado MD [address] [place] [address] Social History Tobacco Use Types Packs/Day Years [...] Description 03/21/2025 10:00 AM EDT Office Visit [address] [phone] Nicole Samson PA [address] [place] [address] 06/19/2025 11:00 AM EDT Office Visit Adult Medicine [facility] [address] [place] [phone] Juan Velasquez PA 4 [place] [address] documented as of this encounter Visit Diagnoses Not on filedocumented in this encounter Additional Health Concerns Assessment Noted Time PHQ-9 Depression Total Score: 7 12/10/19 25 11:19 AM EST A fall risk assessment has been complete d for the patient 12/10/2024 11:17 AM EST documented as of this encounter Care Teams Electron Tube Assembler Relationship Specialty Start Date End Date Moris Machado MD [address] [place] [address] PCP - General Internal Medicine 10/09/24 documented as of this encounter
--- OUTSIDE RECORDS SUMMARY | 2025-02-13 13:29 | XMS_ITS | Encounter Summary ---
Author Organization [facility] Address [address] [place] [address] Care Team Providers Care Lubrication Technician Name Role Phone Moris Machado MD Primary Care Provider [phone] Reason for Visit * Reason Onset Date Comments Medication Problem 01/15/2025 Encounter Details Date Type Department Care Team ([facility] st Contact Info) Description 01/15/2025 Telephone [place] [address] [place], [place] [phone] Nicole Samson PA [address] [place] [address] Medication Problem Social History Tobacco Use Types [...] What is the problem?: Rep Jessica from [facility] calling stating the pt family members are having trouble helping the pt with the freestlye martha 3 sensors and would like to go back freestyle 2 sensors. It has been 2 weeks he hasn't had a cgm but he has been doing finger sticks. If any further questionscall Jessica at [phone] Who is calling about the problem? : [facility] Is this a NEW medication?: no How long has the patient been taking this medication? N/A Who prescribed this medication for the patient? Nicole Samson Who is patients PCP?: Moris Machado MD Payor: [facility] / Plan: [facility] CARE / Product Type: *No Product type* / documented in this encounter Plan of Treatment Upcoming Encounters Date Type Department Care Team (Late st Contact Info) Description 03/21/2025 10:00 AM EDT Office Visit Endocrinology [address] [phone] Nicole Samson PA [address] [place] [address] 06/19/2025 11:00 AM EDT Office Visit Adult Medicine [address] [phone] Juan Velasquez PA [address] [place] [address] documented as of this encounter Visit Diagnoses Not on filedocumented in this encounter Additional Health Concerns Assessment Noted Time PHQ-9 Depression Total Score: 7 12/10/19 25 11:19 AM EST A fall risk assessment has been complete d for the patient 12/10/2024 11:17 AM EST documented as of this encounter Care Teams Lubrication Technician Relationship Specialty Start Date End Date Moris Machado MD [address] [place] [address] PCP - General Internal Medicine 10/09/24 documented as of this encounter
--- OUTSIDE RECORDS SUMMARY | 2025-02-13 13:29 | XMS_ITS | Encounter Summary ---
Author Organization [facility] Address [address] [place] [address] Care Team Providers Care Curtain Mender Name Role Phone Moris Machado MD Primary Care Provider [phone] Encounter Details Date Type Department Care Team (Latest Contact Info) Description 01/28/2025 Anticoagulation - Warfarin Visit [facility] - [address] [phone] Tiffanie Saba, KELLIE Atrial fibrillation, unspecified type (CMS/HCC) (Primary Dx); [facility] (current) use of anticoagulants Social History Tobacco [...] 10:00 AM EDT Office Visit Endocrinology - [address] [phone] Nicole Samson PA [address] [place] [address] 06/19/2025 11:00 AM EDT Office Visit Adult Medicine [facility] [address] [place] [phone] Juan Velasquez PA [address] [place] [address] documented as of this encounter Procedures Procedure [...] Atrial fibrillation, unspecified type (CMS/HCC)- 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
--- OUTSIDE RECORDS SUMMARY | 2025-02-13 13:29 | XMS_ITS | Encounter Summary ---
Author Organization [facility] Address [address] [place] [address] Care Team Providers Care Boiler Engineer Name Role Phone Moris Machado MD Primary Care Provider [phone] Encounter Details Date Type Department Care Team (Latest Contact Info) Description 01/15/2025 Anticoagulation - Warfarin Visit [facility] - [address] [phone] Xiomara Mcintyre LPN Atrial fibrillation, unspecified type (CMS/HCC) (Primary Dx); care home (current) use of anticoagulants Social History [...] 10:00 AM EDT Office Visit Endocrinology - [address] [phone] Nicole Samson PA [address] [place] [address] 06/19/2025 11:00 AM EDT Office Visit Adult Medicine [facility] [address] [place] [phone] Juan Velasquez PA [address] [place] [address] documented as of this encounter Procedures Procedure [...] Diagnosis Atrial fibrillation, unspecified type (CMS/HCC)- 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
--- OUTSIDE RECORDS SUMMARY | 2025-02-13 13:29 | XMS_ITS | Encounter Summary ---
Author Organization [facility] Address [address] [place] [address] Care Team Providers Care Language Instructor Name Role Phone Moris Machado MD Primary Care Provider [phone] Reason for Visit * Reason Onset Date Comments faxed order 01/21/2025 [facility] order #[id number], #[id number], #[id number], #[id number] Encounter Details Date Type Department Care Team (Late st Contact Info) Description 01/21/2025 Telephone Adult Medicine [address] [phone] Silvana Torres [place] faxed order ([facility] order #[id number], #[id number], #[id number], #[id number]) Social History Tobacco Use Types Packs/Day Years [...] Received orders from [facility] order #[id number], #[id number], #[id number], #[id number]. Please sign and fax to [phone] documented in this encounter Plan of Treatment Upcoming Encounters Date Type Department Care Team (Late st Contact Info) Description 03/21/2025 10:00 AM EDT Office Visit Endocrinology [address] [phone] Nicole Samson PA [address] [place] [address] 06/19/2025 11:00 AM EDT Office Visit Adult Medicine [address] [phone] Juan Velasquez PA [address] [place], [place] documented as of this encounter Visit Diagnoses Not on filedocumented in this encounter Additional Health Concerns Assessment Noted Time PHQ-9 Depression Total Score: 7 12/10/19 25 11:19 AM EST A fall risk assessment has been complete d for the patient 12/10/2024 11:17 AM EST documented as of this encounter Care Teams Language Instructor Relationship Specialty Start Date End Date Moris Machado MD [address] [place] [address] PCP - General Internal Medicine 10/09/24 documented as of this encounter
--- OUTSIDE RECORDS SUMMARY | 2025-02-13 13:29 | XMS_ITS | Encounter Summary ---
Author Organization [facility] Address [address] [place] [address] Care Team Providers Care Foundry Molder Name Role Phone Moris Machado MD Primary Care Provider [phone] Encounter Details Date Type Department Care Team (Latest Contact Info) Description 01/22/2025 Anticoagulation - Warfarin Visit [facility] - [address] [phone] Tiffanie Saba, KELLIE Atrial fibrillation, unspecified type (CMS/HCC) (Primary Dx); assisted (current) use of anticoagulants Social History Tobacco [...] 10:00 AM EDT Office Visit Endocrinology - [address] [phone] Nicole Samson PA [address] [place] [place] [address] 06/19/2025 11:00 AM EDT Office Visit Adult Medicine [facility] [address] [place] [phone] Juan Velasquez PA [address] [place] [address] documented as of this encounter Procedures Procedure [...] Visit Diagnoses Diagnosis Atrial fibrillation, unspecified type (CMS/[facility])- Primary 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
--- OUTSIDE RECORDS SUMMARY | 2025-02-13 13:29 | XMS_ITS | Encounter Summary ---
Author Organization [facility] Address [address] [place] [address] Care Team Providers Care Line Technician Name Role Phone Moris Machado MD Primary Care Provider [phone] Reason for Visit * Reason Onset Date Comments faxed order 01/16/2025 Faxed order rece ived from [facility] [id number] please sign and fax to [phone]./ Encounter Details Date Type Department Care Team (Late st Contact Info) Description 01/16/2025 Telephone Adult Medicine [address] [phone] Moris Machado MD [address] [place] [address] faxed order (Faxed order received from [facility] [id number] please sign and fax to [phone]./) Social History Tobacco Use Types Packs/Day Years [...] Description 03/21/2025 10:00 AM EDT Office Visit [address] [phone] Nicole Samson PA [address] [place] [address] 06/19/2025 11:00 AM EDT Office Visit Adult Medicine [facility] - [address] [phone] Juan Velasquez PA [address] [place] [address] documented as of this encounter Visit Diagnoses Not on filedocumented in this encounter Additional Health Concerns Assessment Noted Time PHQ-9 Depression Total Score: 7 12/10/19 25 11:19 AM EST A fall risk assessment has been complete d for the patient 12/10/2024 11:17 AM EST documented as of this encounter Care Teams Line Technician Relationship Specialty Start Date End Date Moris Machado MD [address] [place] [address] PCP - General Internal Medicine 10/09/24 documented as of this encounter
--- OUTSIDE RECORDS SUMMARY | 2025-02-13 13:29 | XMS_ITS | Continuity of Care Document ---
Author Organization [facility] Address [address] [place] [address] Phone Care Team Providers Care Encapsulator Name Role Phone Unavailable Unavailable Unavailable Procedures [...] Diagnoses Date Provider Providers Copied on Encounter [facility], [address] [place], [place], [id number], [place] tel:[phone] [facility] No Information 1-200 5 No Information Family History Family Member Type Diagnosis Age At Onset No Information Immunizations Vaccine Date Status Comments flu (split) (3 yrs or older) administered Source: New Immunization Record Payers Payer name Insurance type Covered democrat ID Authoriza tion(s) [facility] Medicaid [id number] Social History Type Description Quantity Date Captured [...]
--- OUTSIDE RECORDS SUMMARY | 2025-02-13 13:30 | XMS_ITS | Encounter Summary ---
Author Organization [facility] Address [address] [place] [address] Care Team Providers Care Fuel Oil Truck Driver Name Role Phone Moris Machado MD Primary Care Provider Reason for Visit * Reason Onset Date Comments faxed order 12/24/2024 [facility] order #[id number] Encounter Details Date Type Department Care Team (Late st Contact Info) Description 12/24/2024 Telephone Adult Medicine [address] [phone] Silvana Torres [place] faxed order ([facility] order #[id number]) Social History Tobacco Use Types Packs/Day Years [...] Received orders from [facility] order #[id number]. Please sign and fax to [phone] documented in this encounter Plan of Treatment Upcoming Encounters Date Type Department Care Team (Late st Contact Info) Description 03/21/2025 10:00 AM EDT Office Visit [address] [phone] Nicole Samson PA [address] [place] [address] 06/19/2025 11:00 AM EDT Office Visit Adult Medicine [place] - [address] [phone] Juan Velasquez PA [address] [place] [address] documented as of this encounter Visit Diagnoses Not on filedocumented in this encounter Additional Health Concerns Assessment Noted Time PHQ-9 Depression Total Score: 7 12/10/19 25 11:19 AM EST A fall risk assessment has been complete d for the patient 12/10/2024 11:17 AM EST documented as of this encounter Care Teams Fuel Oil Truck Driver Relationship Specialty Start Date End Date Moris Machado MD [address] [place] [address] PCP - General Internal Medicine 10/09/24 documented as of this encounter
--- OUTSIDE RECORDS SUMMARY | 2025-02-13 13:30 | XMS_ITS | Encounter Summary ---
Author Organization [facility] Address [address] [place] [address] Care Team Providers Care Monument Carver Name Role Phone Moris Machado MD Primary Care Provider [phone] Encounter Details Date Type Department Care Team (Late st Contact Info) Description 12/20/2024 Nurse Triage Adult Medicine [address] [phone] Brooke Coronel, RN Social History Tobacco Use [...] Called pt via AMN and interpretor # [id number]. An appointment was made for him to [...] comes to his house through [facility] two times a week 10. POTENTIAL [...] 03/21/2025 10:00 AM EDT Office Visit [address] [phone] Nicole Samson PA [address] [place] [address] 06/19/2025 11:00 AM EDT Office Visit Adult Medicine [address] [phone] Juan Velasquez PA [address] [place] [address] documented as of this encounter Visit Diagnoses Not on filedocumented in this encounter Additional Health Concerns Assessment Noted Time PHQ-9 Depression Total Score: 7 12/10/19 25 11:19 AM EST A fall risk assessment has been complete d for the patient 12/10/2024 11:17 AM EST documented as of this encounter Care Teams Monument Carver Relationship Specialty Start Date End Date Moris Machado MD [address] [place] [address] PCP - General Internal Medicine 10/09/24 documented as of this encounter
--- OUTSIDE RECORDS SUMMARY | 2025-02-13 13:30 | XMS_ITS | Encounter Summary ---
Author Organization [facility] Address [address] [place] [address] Care Team Providers Care Sales Representative Public Utilities Name Role Phone Moris Machado MD Primary Care Provider [phone] Encounter Details Date Type Department Care Team (Late Contact Info) Description 02/07/2025 Billing Patient Not Present Adult Medicine [address] [phone] Moris Machado MD [address] [place] [address] Social History Tobacco Use Types Packs/Day Years [...] Description 03/21/2025 10:00 AM EDT Office Visit [address] [phone] Nicole Samson PA [address] [place] [address] 06/19/2025 11:00 AM EDT Office Visit Adult Medicine [facility] [address] [place] [phone] Juan Velasquez PA [address] [place] [address] documented as of this encounter Visit Diagnoses Not on filedocumented in this encounter Additional Health Concerns Assessment Noted Time PHQ-9 Depression Total Score: 7 12/10/19 25 11:19 AM EST A fall risk assessment has been complete d for the patient 12/10/2024 11:17 AM EST documented as of this encounter Care Teams Sales Representative Public Utilities Relationship Specialty Start Date End Date Moris Machado MD [address] [place] [address] PCP - General Internal Medicine 10/09/24 documented as of this encounter
--- OUTSIDE RECORDS SUMMARY | 2025-02-13 13:30 | XMS_ITS | Encounter Summary ---
Author Organization [facility] Address [address] [place] [address] Care Team Providers Care Clinical Project Manager Name Role Phone Moris Machado MD Primary Care Provider [phone] Reason for Visit * Reason Onset Date Comments faxed ordrs 01/30/2025 Faxed orders rec eived from [facility] [id number], [phone] please sign and fax to [phone]. Encounter Details Date Type Department Care Team (Late st Contact Info) Description 01/30/2025 Telephone Adult Medicine [address] [phone] Moris Machado MD [address] [place] [phone] faxed ordrs (Faxed orders received from [facility] [id number], [id number] please sign and fax to [phone].) Social History Tobacco Use Types Packs/Day Years [...] Description 03/21/2025 10:00 AM EDT Office Visit [address] [phone] Nicole Samson PA [address] [place] [address] 06/19/2025 11:00 AM EDT Office Visit Adult Medicine [address] [phone] Juan Velasquez PA [address] [place], [place] documented as of this encounter Visit Diagnoses Not on filedocumented in this encounter Additional Health Concerns Assessment Noted Time PHQ-9 Depression Total Score: 7 12/10/19 25 11:19 AM EST A fall risk assessment has been complete d for the patient 12/10/2024 11:17 AM EST documented as of this encounter Care Teams Clinical Project Manager Relationship Specialty Start Date End Date Moris Machado MD [address] [place] [id number] PCP - General Internal Medicine 10/09/24 documented as of this encounter
--- OUTSIDE RECORDS SUMMARY | 2025-02-13 13:30 | XMS_ITS | Encounter Summary ---
Author Organization [facility] Address [address] [place] [address] Care Team Providers Care Machine Stamper Name Role Phone Moris Machado MD Primary Care Provider [phone] Reason for Visit * Reason Onset Date Comments prior authorization 01/30/2025 Encounter Details Date Type Department Care Team ([facility] st Contact Info) Description 01/30/2025 Telephone [place] [address] [place], [place] [phone] Nicole Samson PA [address] [facility] [place] [address] prior authorization Social History Tobacco Use Types [...] My Meds request: Yes -- Keenan Code [id number] Name of Medication FREESTYLE FER 2 SENSOR How does patient take this med? Change sensor change every 14 days What Pharmacy did the fax come from: [facility] [id number] Pharmacy fax #: [phone] Help desk phone: [phone] documented in this encounter Plan of Treatment Upcoming Encounters Date Type Department Care Team (Late st Contact Info) Description 03/21/2025 10:00 AM EDT Office Visit [address] [phone] Nicole Samson PA [address] [place] [address] 06/19/2025 11:00 AM EDT Office Visit Adult Medicine [address] [phone] Juan Velasquez PA [address] [place], [place] documented as of this encounter Visit Diagnoses Not on filedocumented in this encounter Additional Health Concerns Assessment Noted Time PHQ-9 Depression Total Score: 7 12/10/19 25 11:19 AM EST A fall risk assessment has been complete d for the patient 12/10/2024 11:17 AM EST documented as of this encounter Care Teams Machine Stamper Relationship Specialty Start Date End Date Moris Machado MD [address] [place] [address] PCP - General Internal Medicine 10/09/24 documented as of this encounter
--- OUTSIDE RECORDS SUMMARY | 2025-02-13 13:30 | XMS_ITS | Encounter Summary ---
Author Organization [facility] Address [address] [place] [address] Care Team Providers Care Legislative Advocate Name Role Phone Moris Machado MD Primary Care Provider [phone] Reason for Visit * Reason Onset Date Comments Faxed Order 02/01/2025 [facility] order# [id number] Encounter Details Date Type Department Care Team (Late st Contact Info) Description 02/01/2025 Telephone Adult Medicine [address] [address] Aleshia Ramirez RN Faxed Order ([facility] order# [id number]) Social History Tobacco Use Types Packs/Day Years [...] EST Received [facility] order# [id number]. Please sign and fax to [phone]. documented in this encounter Plan of Treatment Upcoming Encounters Date Type Department Care Team (Late st Contact Info) Description 03/21/2025 10:00 AM EDT Office Visit [address] [phone] Nicole Samson PA [address] [place] [address] 06/19/2025 11:00 AM EDT Office Visit Adult Medicine [address] [phone] Juan Velasquez PA [address] [place] [address] documented as of this encounter Visit Diagnoses Not on filedocumented in this encounter Additional Health Concerns Assessment Noted Time PHQ-9 Depression Total Score: 7 12/10/19 25 11:19 AM EST A fall risk assessment has been complete d for the patient 12/10/2024 11:17 AM EST documented as of this encounter Care Teams Legislative Advocate Relationship Specialty Start Date End Date Moris Machado MD [address] [place] [address] PCP - General Internal Medicine 10/09/24 documented as of this encounter
--- OUTSIDE RECORDS SUMMARY | 2025-02-13 13:30 | XMS_ITS | Encounter Summary ---
Author Organization [facility] Address [address] [place] [address] Care Team Providers Care Children'S Nursery Assistant Name Role Phone Moris Machado MD Primary Care Provider [phone] Reason for Visit * Reason Onset Date Comments faxed orders 01/11/2025 Faxed order rece ived from [facility] [id number] pls sign and fax to [phone]. Encounter Details Date Type Department Care Team (Late st Contact Info) Description 01/11/2025 Telephone Adult Medicine [address] [phone] Moris Machado MD [address] [place] [phone] faxed orders (Faxed order received from [facility] [phone] pls sign and fax to [phone].) Social History Tobacco Use Types Packs/Day Years [...] 03/21/2025 10:00 AM EDT Office Visit Endocrinology [address] [phone] Nicole Samson PA [address] [place] [address] 06/19/2025 11:00 AM EDT Office Visit Adult Medicine [facility] - [address] [phone] Juan Velasquez PA [address] [place], [place] documented as of this encounter Visit Diagnoses Not on filedocumented in this encounter Additional Health Concerns Assessment Noted Time PHQ-9 Depression Total Score: 7 12/10/19 25 11:19 AM EST A fall risk assessment has been complete d for the patient 12/10/2024 11:17 AM EST documented as of this encounter Care Teams Children'S Nursery Assistant Relationship Specialty Start Date End Date Moris Machado MD [address] [place] [address] PCP - General Internal Medicine 10/09/24 documented as of this encounter
--- OUTSIDE RECORDS SUMMARY | 2025-02-13 13:30 | XMS_ITS | Clinical Summary ---
Author Organization [address] Address [address] [place] [phone] Phone Care Team Providers Care Apparel Embroidery Digitizer Name Role Phone Moris Machado MD Primary Care Provider [phone] Allergies No known active allergies Medications rosuvastatin [...] Noted Date Diagnosed Date Atrial fibrillation 10/26/2024 residential (current) use of anticoagulants 2023 Diabetes mellitus [...] oxygen therapy. 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 We will update an echocardiogram to reevaluate his right ventricular function. Influenza 03/05/2022 Overview (10/19/2024): [place] [facility] [place] Lymphadenopathy 03/05/2022 Overview (10/19/2024): D/C'd [place] [facility] [place] 11/[place]/21 ILD (interstitial lung disease) 11/30/2021 Overview (10/19/2024): D/C'd [place] [facility] [place] 11/23/21 Assessment & Plan (12/10/2024 3:56 PM EST): 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 Old NM (myocardial infarction) 06/12/2015 Glaucoma 06/05/2012 A-fib 03/16/2012 Overview (10/19/2024): Last Assessment & Plan: Patient has a history of atrial fibrillation on chronic anticoagulation with warfarin. He is a [id number] score of 4 and continues on anticoagulation as prescribed. He is also on metoprolol for rate control. His heart rate is well controlled today. He denies any excessive bruising or bleeding. We will continue current therapies. CAD (coronary artery disease) 03/16/2012 Overview (10/19/2024): Last Assessment & Plan: The patient has a history of coronary artery disease status post inferior NM in 2003. He continues on cardioprotective medical [...] 03/05/2022 11/23/2024 Overview (10/19/2024): Acute D/C'd [place] [facility] [place] 11/23/21 Encounters Date Type Department Care Team Description 02/11/2025 Anticoagulation - Warfarin Visit [facility] [address] [phone] Xiomara Mcintyre LPN Atrial fibrillation, unspecified type (CMS/HCC) (Primary Dx); meterman (current) use of anticoagulants 02/07/2025 Billing Patient Not Present Adult Medicine [address] [phone] Moris Machado MD 02/07/2025 Billing Patient Not Present Adult Medicine [address] [phone] Moris Machado MD 02/04/2025 Anticoagulation - Warfarin Visit Coumadin [address] [phone] Xiomara Mcintyre LPN Atrial fibrillation, unspecified type (CMS/HCC) (Primary Dx); meterman (current) use of anticoagulants 02/01/2025 Telephone Adult Medicine [address] [phone] Aleshia Ramirez, RN Faxed Order ([facility] order# [id number]) 01/31/2025 Telephone Adult Medicine [address] [phone] Aleshia Ramirez, RN Faxed Order ([facility] Orders# [id number], [id number], [id number]) 01/31/[address] [phone] Moris Machado MD faxed orders (Faxed orders received from [facility] [phone] please sign and fax to [phone].) 01/30/[address] [phone] Moris Machado MD faxed ordrs (Faxed orders received from [facility] [id number], [id number] please sign and fax to [phone].) 01/30/[address] [phone] Nicole Samson PA prior authorization 01/28/2025 Anticoagulation - Warfarin Visit Coumadin [address] [phone] Tiffanie Saba LPN Atrial fibrillation, unspecified type (CMS/HCC) (Primary Dx); meterman (current) use of anticoagulants 01/25/2025 Billing Patient Not Present Adult [address] [phone] Moris Machado MD 01/25/2025 Billing Patient Not Present Adult Medicine [address] [phone] Moris Machado MD 01/23/2025 Billing Patient Not Present Adult Medicine [address] [phone] Moris Machado MD 01/22/2025 Anticoagulation - Warfarin Visit Coumadin [address] [phone] Tiffanie Saba LPN Atrial fibrillation, unspecified type (CMS/HCC) (Primary Dx); residential (current) use of anticoagulants 01/21/2025 Telephone Adult [address] [phone] Silvana Torres MA faxed order ([facility] order #[id number], #[id number], #[id number], #[id number]) 01/17/2025 10:30 AM EST Office Visit [address] [phone] Moris Machado MD Acute on chronic respiratory failure, unspecified whether with hypoxia or hypercapnia (CMS/HCC) (Primary Dx); Hypokalemia; Primary hypertension; Type 2 diabetes mellitus with chronic kidney disease, with long-term current use of insulin, unspecified CKD stage (CMS/HCC); Pure hypercholesterolemia ; Encounter for long-term (current) use of medications; Heart failure with preserved ejection fraction, unspecified HF chronicity (CMS/HCC); Diabetes mellitus due to underlying condition, uncontrolled, with hyperglycemia (CMS/HCC); Chronic hypoxemic respiratory failure (CMS/HCC); ILD (interstitial lung disease) (CMS/HCC); Chronic obstructive pulmonary disease, unspecified COPD type (CMS/HCC) 01/16/2025 Telephone Adult [address] [phone] Moris Machado MD faxed order (Faxed order received from [facility] [id number] please sign and fax to [phone]./) 01/15/2025 Telephone Endocrinology [address] [phone] Nicole Samson PA Medication Problem 01/15/2025 Anticoagulation - Warfarin Visit [facility]in Clinic [address] [phone] Xiomara Mcintyre LPN Atrial fibrillation, unspecified type (CMS/HCC) (Primary Dx); residential (current) use of anticoagulants 01/11/2025 Telephone Adult [address] [phone] Moris Machado MD faxed orders (Faxed order received from [facility] [id number] pls sign and fax to [phone].) 01/09/2025 Anticoagulation - Warfarin Visit Coumadin [address] [phone] Tiffanie Saba LPN Atrial fibrillation, unspecified type (CMS/HCC) (Primary Dx); residential (current) use of anticoagulants 01/04/2025 Anticoagulation - Warfarin Visit Coumadin [address] [phone] Moris Machado MD Atrial fibrillation, unspecified type (CMS/HCC) (Primary Dx); meterman (current) use of anticoagulants 01/04/2025 Telephone Adult Medicine [address] [phone] Moris Machado MD faxed orders (Faxed orders received from [facility] [id number], [id number], [id number] please sign and fax to [phone].) 12/31/2024 [facility] [address] [phone] Xiomara Mcintyre LPN Atrial fibrillation, unspecified type (CMS/HCC) (Primary Dx); meterman (current) use of anticoagulants 12/28/2024 Telephone Adult Medicine [address] [phone] Moris Machado MD Request For Order(s) ([facility] order # [id number] received and placed in provider's bin. Please sign and fax back to [phone]) 12/27/2024 Telephone Adult Medicine [address] [phone] Moris Machado MD Shortness of Breath 12/26/2024 [facility] [address] [phone] Moris Machado MD [facility] 12/26/2024 Anticoagulation - Warfarin Visit Coumadin [address] [phone] Tiffanie Saba LPN Atrial fibrillation, unspecified type ([facility]/HCC) (Primary Dx); meterman (current) use of anticoagulants 12/25/2024 Billing Patient Not Present [address] [phone] Moris Machado MD Acute and chronic respiratory failure with hypoxia (CMS/HCC) (Primary Dx); COPD with acute exacerbation ([facility]/HCC); Chronic systolic (congestive) heart failure ([facility]/HCC); Pulmonary hypertension, unspecified ([facility]/HCC); Pulmonary fibrosis, unspecified ([facility]/HCC); Paroxysmal atrial fibrillation ([facility]/HCC); Rheumatoid arthritis, involving unspecified site, unspecified whether rheumatoid factor present ([facility]/HCC); Type 2 diabetes mellitus with diabetic chronic kidney disease, unspecified CKD stage, unspecified whether exterminator termite insulin use ([facility]/HCC); Hypertensive heart and chronic kidney disease with heart failure and stage 1 through stage 4 chronic kidney disease, or chronic kidney disease ([facility]/HCC); Chronic kidney disease, stage 3b ([facility]/HCC); Gastroesophageal reflux disease without esophagitis; Atherosclerosis of [place] coronary artery without angina pectoris, unspecified whether [place] or transplanted heart; Hyperlipidemia, unspecified hyperlipidemia type; residential (current) use of insulin ([facility]); meterman (current) use of systemic steroids; residential (current) use of antithrombotics/anti platelets; residential (current) use of aspirin; meterman (current) use of oral hypoglycemic drugs; Dependence on supplemental oxygen 12/24/[address] [phone] Silvana Torres MA faxed order ([facility] order #[id number]) 12/20/2024 Nurse Triage [address] [phone] Brooke Coronel RN 12/19/2024 Billing Patient Not Present [address] [phone] Moris Mcahado MD Acute and chronic respiratory failure with hypoxia (CMS/HCC) (Primary Dx); Chronic obstructive pulmonary disease with (acute) exacerbation (CMS/HCC); Chronic diastolic (congestive) heart failure (CMS/HCC); Pulmonary hypertension, unspecified (CMS/HCC); Pulmonary fibrosis, unspecified (CMS/HCC); Paroxysmal atrial fibrillation (CMS/HCC); Rheumatoid arthritis, involving unspecified site, unspecified whether rheumatoid factor present (CMS/HCC); Type 2 diabetes mellitus with diabetic chronic kidney disease, unspecified CKD stage, unspecified whether prison insulin use (CMS/HCC); Hypertensive heart and chronic kidney disease with heart failure and stage 1 through stage 4 chronic kidney disease, or unspecified chronic kidney disease (CMS/HCC); Stage 3 chronic kidney disease, unspecified whether stage 3a or 3b CKD (CMS/HCC); Gastro-esophageal reflux disease without esophagitis; Hyperlipidemia, unspecified hyperlipidemia type; residential (current) use of insulin (CMS/HCC); residential (current) use of systemic steroids; residential (current) use of antithrombotics/anti platelets; residential (current) use of aspirin; meterman (current) use of oral hypoglycemic drugs; Dependence on supplemental oxygen 12/18/2024 7:18 AM EST - 12/18/2024 11:27 AM EST [facility] [address] [place] [phone] Katharina Castellanos, Gastritis without bleeding, unspecified chronicity, unspecified gastritis type (Primary Dx) Discharge Disposition: Home or Self Care 12/14/2024 9:00 AM EST Consult [address] [phone] Nicole Samson PA Diabetes mellitus due to underlying condition, uncontrolled, with hyperglycemia (CMS/HCC) (Primary Dx); Stage 3b chronic kidney disease (CMS/HCC); Secondary hypertension 12/11/2024 2:04 PM EST - 12/11/2024 8:46 PM EST [facility] [address] [place] [phone] Brent Ojeda MD Shortness of breath (Primary Dx); COPD exacerbation (CMS/HCC) Discharge Disposition: Home or Self Care 12/10/2024 11:00 AM EST Office Visit Adult Medicine [address] [phone] Moris Machado MD Encounter for subsequent annual wellness visit (AWV) in Medicare patient (Primary Dx); Acute on chronic heart failure with preserved ejection fraction (CMS/HCC); Chronic hypoxemic respiratory failure (CMS/HCC); Acute on chronic respiratory failure with hypoxia (CMS/HCC); ILD (interstitial lung disease) (CMS/HCC) 12/10/2024 10:30 AM EST Anticoagulation - Warfarin Visit Coumadin [address] [phone] Atrial fibrillation, unspecified type (CMS/HCC) (Primary Dx); residential (current) use of anticoagulants 12/10/2024 Telephone Adult Medicine [address] [phone] Silvana Torres MA faxed order ([facility] Plan of Care order #[id number]) 12/07/2024 Telephone Endocrinology [address] [phone] Kati Gonzalez MD PRIOR AUTHORIZATION 12/03/[address] [phone] Kati Gonzalez MD 11/30/2024 Telephone Endocrinology [address] [phone] Kati Gonzalez MD Appointment 11/27/2024 10:10 AM EST Anticoagulation - Warfarin Visit Coumadin [address] [phone] Atrial fibrillation, unspecified type (CMS/HCC) (Primary Dx); meterman (current) use of anticoagulants 11/20/2024 10:33 AM EST - 11/23/2024 3:55 PM EST Hospital Encounter [facility] [address] [place] [address] Davidson Hebert MD Bukalo, Nermina, MD Kokosadze, Estate, MD COPD exacerbation ([facility]) (Primary Dx) Discharge Disposition: Home-Health Care Svc from Last 3 Months Immunizations Name Administration [...] COLONOSCOPY 10/17/19 [facility] PROCEDURE: HISTORICAL COLONOSCOPY; COMMENT: sigmoid adenoma and tics COLONOSCOPY 05/02/14 PROCEDURE: [place] COLONOSCOPY STOMA W/RMVL BART POLYP/OTH LES SNARE; COMMENT: adenoma and tics; repeat in 5 yrs Medical History Medical History Date Comments A-fib ([facility]) 03/16/2012 DX:A-fib ([facility]) CAD (coronary artery disease) 03/16/2012 DX :CAD (coronary artery disease) High cholesterol 03/16/2012 DX:High cholest anh HTN (hypertension) 03/16/2012 DX:HTN (hyper tension) Historical Medical DX 04/20/2012 DX:PPD neg ative RA (rheumatoid arthritis) ([facility]) 03/16/2012 DX:RA (rheumatoid arthritis) ([facility]) Glaucoma 06/05/2012 DX:Glaucoma 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 DX:Schamberg 's disease ILD (interstitial lung disea se) ([facility]) 11/30/2021 DX:ILD (interstitial lung di sease) ([facility]) Asthma DX:Asthma Family History Medical History [...] Description 03/21/2025 10:00 AM EDT Office Visit [address] [phone] Nicole Samson PA [address] [place] [address] 06/19/2025 11:00 AM EDT Office Visit Adult Medicine [facility] [address] [place] [phone] Juan Velasquez PA [address] [place] [address] Health Maintenance Due Date Last Done Comments [...] Diagnosis Comments PROTHROMBIN TIME WITH INR Routine 02/11/2025 PROTHROMBIN TIME WITH INR Routine 02/04/2025 PROTHROMBIN TIME WITH INR Routine 01/28/2025 PROTHROMBIN TIME WITH INR Routine 01/22/2025 HEMOGLOBIN A1C Routine 01/17/2025 10:14 AM EST Diabetes mellitus due to underlying condition, uncontrolled, with hyperglycemia ([facility]) HOME HEALTH ORDER 01/15/2025 HOME HEALTH ORDER 01/15/2025 PROTHROMBIN TIME WITH INR Routine 01/15/2025 PROTHROMBIN [...] due to underlying condition, uncontrolled, with hyperglycemia ([facility]) ECG 12-LEAD STAT 12/11/2024 5:24 PM EST [...] Routine 12/10/2024 Atrial fibrillation, unspecified type (CMS/HCC) residential (current) use of anticoagulants POC PROTIME INR BLOOD Routine 11/27/2024 Atrial fibrillation, unspecified type (CMS/HCC) meterman (current) use of anticoagulants HOME HEALTH ORDER [...] Maintenance Results * Prothrombin time with INR (02/11/2025) Only the most recent of13 resultswithin the time period is included. INR 2.9 Comment:[facility] Prothrombin Time POC Blood Venous blood specimen / Unknown 02/11/2025 Moris Machado MD LAB BLOOD ORDERABLES Final Resu lt * (ABNORMAL) Hemoglobin A1c (01/17/2025 10:14 AM EST) Hemoglobin A1C 8.5(H) <6.5 % LAB CHEMISTRY METHOD 01/17/2025 2:34 PM EST [facility] Mean Bld Glu Estim. 197 mg/dL LAB CHEMISTRY METHOD 01/17/2025 2:34 PM EST [facility] Blood Venous blood specimen / Unknown Venipuncture / Unknown 01/17/2025 10:14 AM EST 01/17/2025 10:14 AM EST Nicole ROSALES LAB BLOOD ORDERABLES Final Result [facility] [address] [place] [address], * Home Health Order (01/15/2025) Only the most recent of15 resultswithin the time period is included. Provider [facility] Vero [facility] Result * [...] Signed Date: 12/18/2024 09:36 ET Workstation ID: [id number] Transcribed By: Self Edit Transcribed Date: 12/18/2024 [...] Signed Date: 12/18/2024 09:36 ET Workstation ID: [id number] Transcribed By: Self Edit Transcribed Date: 12/18/2024 09:28 ET us Katharina Girma Encarnacion Emanuel DO IMG CT PROCEDURES Final R esult * (ABNORMAL) CBC auto differential (12/18/2024 7:43 AM EST) Only the most recent of6 resultswithin the time period is included. WBC 6.9 4.8 - 10.8 K/mcL LAB HEMETOLOGY METHOD 12/18/2024 8:37 AM [facility] RBC 4.80 4.50 - 5.50 M/mcL LAB HEMETOLOGY METHOD 12/18/2024 8:37 AM [facility] Hemoglobin 12.7(L) 13.5 - 17.5 g/dL LAB HEMETOLOGY METHOD 12/18/2024 8:37 AM [facility] Hematocrit 41.1(L) 42.0 - 54.0 % LAB HEMETOLOGY METHOD 12/18/2024 8:37 AM [facility] MCV 86.0 79.0 - 98.0 FL LAB HEMETOLOGY METHOD 12/18/2024 8:37 AM [facility] MCH 26.6(L) 27.0 - 32.0 pcg LAB HEMETOLOGY METHOD 12/18/2024 8:37 AM [facility] MCHC 30.9(L) 32.0 - 37.0 g/dL LAB HEMETOLOGY METHOD 12/18/2024 8:37 AM [facility] RDW 22.4(H) 11.0 - 15.0 % LAB HEMETOLOGY METHOD 12/18/2024 8:37 AM [facility] Platelets 172 130 - 400 K/mcL LAB HEMETOLOGY METHOD 12/18/2024 8:37 AM [facility] MPV 10.7 7.0 - 11.0 FL LAB HEMETOLOGY METHOD 12/18/2024 8:37 AM [facility] NRBC 0.0 <1.0 % LAB HEMETOLOGY METHOD 12/18/2024 8:37 AM [facility] NRBC Absolute 0.00 <0.10 K/mcL LAB HEMETOLOGY METHOD 12/18/2024 8:37 AM [facility] Neutrophils Relative 52.9 % LAB HEMETOLOGY METHOD 12/18/2024 8:37 AM [facility] Lymphocytes Relative 34.9 % LAB HEMETOLOGY METHOD 12/18/2024 8:37 AM [facility] Monocytes Relative 10.3 % LAB HEMETOLOGY METHOD 12/18/2024 8:37 AM [facility] Eosinophils Relative 1.3 % LAB HEMETOLOGY METHOD 12/18/2024 8:37 AM [facility] Basophils Relative 0.3 % LAB HEMETOLOGY METHOD 12/18/2024 8:37 AM EST [facility] Immature Granulocytes Relative 0.3 % LAB HEMETOLOGY METHOD 12/18/2024 8:37 AM EST [facility] Neutrophils Absolute 3.65 1.50 - 7.00 K/[facility] LAB HEMETOLOGY METHOD 12/18/2024 8:37 AM EST [facility] Lymphocytes Absolute 2.41 1.00 - 5.00 K/mcL LAB HEMETOLOGY METHOD 12/18/2024 8:37 AM EST [facility] Monocytes Absolute 0.71 0.20 - 1.00 K/mcL LAB HEMETOLOGY METHOD 12/18/2024 8:37 AM EST [facility] Eosinophils Absolute 0.09 0.00 - 0.50 K/[facility] LAB HEMETOLOGY METHOD 12/18/2024 8:37 AM EST [facility] Basophils Absolute 0.02 0.00 - 0.20 K/mcL LAB HEMETOLOGY METHOD 12/18/2024 8:37 AM EST [facility] Immature Granulocytes Absolute 0.02 0.00 - 0.03 K/mcL LAB HEMETOLOGY METHOD 12/18/2024 8:37 AM EST [facility] Blood Venous blood specimen / Unknown Venipuncture / Unknown 12/18/2024 7:43 AM EST 12/18/2024 8:31 AM EST us Katharina Castellanos DO LAB BLOOD ORDERABLES Vero l Result [facility] [address] [place] [address], * Lipase (12/18/2024 7:43 AM EST) Lipase 57 13 - 75 unit/L LAB CHEMISTRY METHOD 12/18/2024 9:07 AM EST [facility] Blood Venous blood specimen / Unknown Venipuncture / Unknown 12/18/2024 7:43 AM EST 12/18/2024 8:31 AM EST us Katharina Castellanos DO LAB BLOOD ORDERABLES Vero jv Result [facility] [address] [place] [address], [place] [phone] * (ABNORMAL) Comprehensive metabolic panel (12/18/2024 7:43 AM EST) Only the most recent of3 resultswithin the time period is included. Sodium 140 133 - 145 mmol/L LAB CHEMISTRY METHOD 12/18/2024 9:07 AM [facility] Potassium 3.5 3.5 - 5.5 mmol/L LAB CHEMISTRY METHOD 12/18/2024 9:07 AM [facility] Comment:Hemolysis present Chloride 106 96 - 110 mmol/L LAB CHEMISTRY METHOD 12/18/2024 9:07 AM [facility] CO2 24 21 - 32 mmol/L LAB CHEMISTRY METHOD 12/18/2024 9:07 AM [facility] Anion Gap 10 3 - 11 LAB CHEMISTRY METHOD 12/18/2024 9:07 AM [facility] Glucose 96 70 - 100 mg/dL LAB CHEMISTRY METHOD 12/18/2024 9:07 AM [facility] BUN 42(H) 5 - 25 mg/dL LAB CHEMISTRY METHOD 12/18/2024 9:07 AM [facility] Creatinine 2.19(H) 0.70 - 1.30 mg/dL LAB CHEMISTRY METHOD 12/18/2024 9:07 AM [facility] eGFR 30(L) >=60 mL/min/1. 73m2 LAB CHEMISTRY METHOD 12/18/2024 9:07 AM [facility] Comment:Calculation based on the??Chronic Kidney Disease Epidemiology Collaboration (CKD-EPI) equation refit??without adjustment for race. BUN/Creatinine Ratio 19.2 LAB CHEMISTRY METHOD 12/18/2024 9:07 AM [facility] Calcium 6.4(L) 8.5 - 10.5 mg/dL LAB CHEMISTRY METHOD 12/18/2024 9:07 AM [facility] AST (SGOT) 34 10 - 42 unit/L LAB CHEMISTRY METHOD 12/18/2024 9:07 AM [facility] Comment:Hemolysis present ALT (SGPT) 28 10 - 60 unit/L LAB CHEMISTRY METHOD 12/18/2024 9:07 AM [facility] Alkaline Phosphatase 43 42 - 121 unit/L LAB CHEMISTRY METHOD 12/18/2024 9:07 AM [facility] Total Protein 6.5 6.0 - 8.0 g/dL LAB CHEMISTRY METHOD 12/18/2024 9:07 AM [facility] Albumin 3.1(L) 3.2 - 5.0 g/dL LAB CHEMISTRY METHOD 12/18/2024 9:07 AM [facility] Total Bilirubin 0.5 0.0 - 1.4 mg/dL LAB CHEMISTRY METHOD 12/18/2024 9:07 AM [facility] Blood Venous blood specimen / Unknown Venipuncture / Unknown 12/18/2024 7:43 AM EST 12/18/2024 8:31 AM EST Katharina Castellanos DO LAB BLOOD ORDERABLES Vero l Result [facility] [address] [place] [address], [place] [phone] * ECG-Outside (12/18/2024) Only the most recent [...] of2 resultswithin the time period is included. [facility] Ventricular Rate ECG 73 BPM GEMUSE Atrial Rate 73 BPM GEMUSE P-R Interval 148 ms GEMUSE QRS Duration 130 ms GEMUSE Q-T Interval 440 ms GEMUSE QTc 484 ms GEMUSE P Wave [place] 76 degrees GEMUSE R [place] 85 degrees GEMUSE T [place] -2 degrees GEMUSE ECG Interpretation Sinus rhythm with Premature supraventricular complexes Right bundle branch block Abnormal ECG When compared with ECG of 20-NOV-2024 11:07, Premature ventricular complexes are no longer Present Confirmed by Betty ATKINSON JOHN ([id number]) on 12/11/2024 9:52:05 PM GEMUSE 12/11/2024 5:24 PM EST 12/11/2024 9:52 PM EST us Brent Ojeda MD ECG ORDERABLES Final Res ult GEMUSE * Respiratory virus panel molecular study (12/11/2024 4:24 PM EST) Only the most recent of2 resultswithin the time period is included. [facility] Adenovirus Detection by PCR Not Detected Not Detected LAB MICROBIOLOGY METHOD 12/11/2024 6:04 PM EST [facility] Influenza A PCR Not Detected Not Detected LAB MICROBIOLOGY METHOD 12/11/2024 6:04 PM EST [facility] Influenza B PCR Not Detected Not Detected LAB MICROBIOLOGY METHOD 12/11/2024 6:04 PM EST [facility] Coronavirus 229E Not Detected Not Detected LAB MICROBIOLOGY METHOD 12/11/2024 6:04 PM EST [facility] Coronavirus HKU1 Not Detected Not Detected LAB MICROBIOLOGY METHOD 12/11/2024 6:04 PM [facility] Coronavirus OC43 Not Detected Not Detected LAB MICROBIOLOGY METHOD 12/11/2024 6:04 PM [facility] Coronavirus NL63 Not Detected Not Detected LAB MICROBIOLOGY METHOD 12/11/2024 6:04 PM [facility] Parainfluenza Virus 1 Not Detected Not Detected LAB MICROBIOLOGY METHOD 12/11/2024 6:04 PM [facility] Parainfluenza Virus 2 Not Detected Not Detected LAB MICROBIOLOGY METHOD 12/11/2024 6:04 PM [facility] Parainfluenza Virus 3 Not Detected Not Detected LAB MICROBIOLOGY METHOD 12/11/2024 6:04 PM [facility] Parainfluenza Virus 4 Not Detected Not Detected LAB MICROBIOLOGY METHOD 12/11/2024 6:04 PM [facility] RSV PCR Not Detected Not Detected LAB MICROBIOLOGY METHOD 12/11/2024 6:04 PM [facility] Human Metapneumovirus A and B Not Detected Not Detected LAB MICROBIOLOGY METHOD 12/11/2024 6:04 PM [facility] Rhinovirus/Entero virus Not Detected Not Detected LAB MICROBIOLOGY METHOD 12/11/2024 6:04 PM [facility] Bordetella pertussis Not Detected Not Detected LAB MICROBIOLOGY METHOD 12/11/2024 6:04 PM [facility] Bordetella parapertussis Not Detected Not Detected LAB MICROBIOLOGY METHOD 12/11/2024 6:04 PM [facility] Mycoplasma pneumo by PCR Not Detected Not Detected LAB MICROBIOLOGY METHOD 12/11/2024 6:04 PM [facility] Chlamydia pneumoniae Not Detected Not Detected LAB MICROBIOLOGY METHOD 12/11/2024 6:04 PM [facility] SARS COV-2 Not Detected Not Detected LAB MICROBIOLOGY METHOD 12/11/2024 6:04 PM EST [facility] Swab Both anterior nares / Unknown Non-blood Collection / Unknown 12/11/2024 4:24 PM EST 12/11/2024 4:50 PM EST Narrative [facility] - 12/11/2024 6:04 PM EST Testing was performed using the Flying Pig Digital Respiratory Pathogen PCR Assay. All results must [...] that are below the limit of detection. us Brent Ojeda MD LAB MICROBIOLOGY - GENERA L ORDERABLES Final Result Performing Organization Address [facility]/ZIP Co de Phone Number [facility] [address] [place] [address], [place] [phone] * Troponin I High Sensitivity (12/11/2024 4:23 PM EST) Pathologist [facility] High Sensitivity Troponin I 32 <=79 ng/L LAB CHEMISTRY METHOD 12/11/2024 5:20 PM EST [facility] Blood Venous blood specimen / Unknown Venipuncture / Unknown 12/11/2024 4:23 PM EST 12/11/2024 4:52 PM EST Narrative [facility] - 12/11/2024 5:20 PM EST High levels of biotin in samples may falsely decrease hsTroponin values. ??Use caution when interpreting hsTroponin results in patients taking biotin who exhibit renal impairment (eGFR <60) or in patients taking more than 20 mg/day of biotin. us Brent Ojeda MD LAB BLOOD ORDERABLES Vero l Result Performing Organization Address [facility]/ZIP Co de Phone Number [facility] [address] [place] [address], [place] [phone] * XR Chest 2 Views (12/11/2024 4:11 PM EST) Anatomical Region Laterality Modality Body Radiographic Mary ging 12/11/2024 4:34 PM EST Impressions 12/11/2024 4:37 PM EST Impression: 1. Stable mild cardiomegaly. 2. Fine bibasilar reticular opacities, unchanged from the previous study, most likely representing interstitial fibrosis. [facility] PA ([id number]) -------- FINAL REPORT -------- Dictated By: Maria Luisa España Dictated Date: 12/11/2024 16:34 ET Assigned Physician: Maria Luisa España Reviewed and Electronically Signed By: Maria Luisa España Signed Date: 12/11/2024 16:37 ET Workstation ID: [id number] Transcribed By: Self Edit Transcribed Date: 12/11/2024 [...] study,most likely representing interstitial fibrosis. [facility] PA ([id number]) -------- FINAL REPORT -------- Dictated By: Maria Luisa España Dictated Date: 12/11/2024 16:34 ET Assigned Physician: Maria Luisa España Reviewed and Electronically Signed By: Maria Luisa España Signed Date: 12/11/2024 16:37 ET Workstation ID: [id number] Transcribed By: Self Edit Transcribed Date: 12/11/2024 [...] Prothrombin Time POC Exp Date Blood 12/10/2024 us Moris Machado MD POINT OF CARE TEST ENTER/EDIT O RDERABLES Edited Result - Final * (ABNORMAL) POCT Glucose, blood (11/23/2024 11:14 AM EST) Only the most recent of12 resultswithin the time period is included. Glucose POCT 288(H) 70 - 100 mg/dL 11/23/2024 11:14 AM EST [facility] Blood Capillary blood specimen / Unknown 11/23/2024 11:14 AM EST 11/23/2024 11:16 AM EST Lori Serrato MD LAB POINT OF CARE TE ST DOCKED DEVICE UNSOLICITED RESULTS Final Result [facility] [address] [place] [address], [place] [phone] * (ABNORMAL) Manual differential (11/23/2024 5:57 AM EST) Only the most recent of2 resultswithin the time period is included. Neutrophils % 96.0 % LAB HEMETOLOGY METHOD 11/23/2024 8:05 AM [facility] Lymphocytes % 3.0 % LAB HEMETOLOGY METHOD 11/23/2024 8:05 AM [facility] Monocytes % 1.0 % LAB HEMETOLOGY METHOD 11/23/2024 8:05 AM [facility] Eosinophils % 0.0 % LAB HEMETOLOGY METHOD 11/23/2024 8:05 AM [facility] Basophils % 0.0 % LAB HEMETOLOGY METHOD 11/23/2024 8:05 AM [facility] Neutrophils Absolute Manual 22.46(H) 1.50 - 7.00 K/mcL LAB HEMETOLOGY METHOD 11/23/2024 8:05 AM [facility] Lymphocytes Absolute 0.70(L) 1.00 - 5.00 K/mcL LAB HEMETOLOGY METHOD 11/23/2024 8:05 AM [facility] Monocytes Absolute Manual 0.23 0.20 - 1.00 K/mcL LAB HEMETOLOGY METHOD 11/23/2024 8:05 AM [facility] Eosinophils Absolute Manual 0.00 0.00 - 0.50 K/mcL LAB HEMETOLOGY METHOD 11/23/2024 8:05 AM [facility] Basophils Absolute Manual 0.00 0.00 - 0.20 K/mcL LAB HEMETOLOGY METHOD 11/23/2024 8:05 AM EST [facility] Rbc Morphology Consistent with indices Consistent with indices, Normal for LAB HEMETOLOGY METHOD 11/23/2024 8:05 AM [facility] Platelet Morphology - WAM See Note(A) Normal [facility] 11/23/2024 8:05 AM EST [facility] Comment:PLT: Normal Blood Venous blood specimen / Unknown Venipuncture / Unknown 11/23/2024 5:57 AM EST 11/23/2024 6:48 AM EST [facility] LAB BLOOD ORDERABLES Final R esult [facility] [address] [place] [address], * (ABNORMAL) Basic metabolic panel (11/23/2024 5:57 AM EST) Only the most recent of3 resultswithin the time period is included. Sodium 139 133 - 145 mmol/L LAB CHEMISTRY METHOD 11/23/2024 7:37 AM [facility] Potassium 3.7 3.5 - 5.5 mmol/L LAB CHEMISTRY METHOD 11/23/2024 7:37 AM [facility] Chloride 102 96 - 110 mmol/L LAB CHEMISTRY METHOD 11/23/2024 7:37 AM [facility] CO2 29 21 - 32 mmol/L LAB CHEMISTRY METHOD 11/23/2024 7:37 AM [facility] Anion Gap 8 3 - 11 LAB CHEMISTRY METHOD 11/23/2024 7:37 AM [facility] Glucose 139(H) 70 - 100 mg/dL LAB CHEMISTRY METHOD 11/23/2024 7:37 AM [facility] BUN 55(H) 5 - 25 mg/dL LAB CHEMISTRY METHOD 11/23/2024 7:37 AM [facility] Creatinine 1.98(H) 0.70 - 1.30 mg/dL LAB CHEMISTRY METHOD 11/23/2024 7:37 AM [facility] eGFR 34(L) >=60 mL/min/1. 73m2 LAB CHEMISTRY METHOD 11/23/2024 7:37 AM [facility] Comment:Calculation based on the??Chronic Kidney Disease Epidemiology Collaboration (CKD-EPI) equation refit??without adjustment for race. BUN/Creatinine Ratio 27.8 LAB CHEMISTRY METHOD 11/23/2024 7:37 AM [facility] Calcium 8.8 8.5 - 10.5 mg/dL LAB CHEMISTRY METHOD 11/23/2024 7:37 AM [facility] Blood Venous blood specimen / Unknown Venipuncture / Unknown 11/23/2024 5:57 AM EST 11/23/2024 6:52 AM EST us Lori Serrato MD LAB BLOOD ORDERABLES Final R esult [facility] [address] [place] [address], * SST tube (11/22/2024 1:34 PM EST) Extra Tube Hold for add-ons. 11/22/2024 3:01 PM EST [facility] Comment:Auto resulted. Blood Venous blood specimen / Unknown Venipuncture / Unknown 11/22/2024 1:34 PM EST 11/22/2024 1:49 PM EST us Lori Serrato MD LAB BLOOD ORDERABLES Final R esult [facility] [address] [place] [address], [place] [phone] * Lavender tube (11/22/2024 1:34 PM EST) Extra Tube Hold for add-ons. 11/22/2024 3:01 PM [address] [facility] Comment:Auto resulted. Blood Venous blood specimen / Unknown Venipuncture / Unknown 11/22/2024 1:34 PM EST 11/22/2024 1:49 PM EST us [facility] LAB BLOOD ORDERABLES Final R esult [facility] [address] [place] [address], * CT Chest wo Contrast (11/20/2024 5:01 [...] contrast Comparison: DX/OT - XR CHEST 1 - 11/20/24 11:18 EST Findings: The heart [...] Signed Date: 11/20/2024 11:40 ET Workstation ID: [id number] Transcribed By: Self Edit Transcribed Date: 11/20/2024 [...] Signed Date: 11/20/2024 11:40 ET Workstation ID: [id number] Transcribed By: Self Edit Transcribed Date: 11/20/2024 11:37 ET us Davidson Hebert MD IMG XR PROCEDURES Final Res ult * Procalcitonin (11/20/2024 11:07 AM EST) Procalcitonin 0.14 <=0.16 ng/mL LAB CHEMISTRY METHOD 11/21/2024 8:35 AM EST [facility] Blood Venous blood specimen / Unknown Venipuncture / Unknown 11/20/2024 11:07 AM EST 11/20/2024 11:24 AM EST [facility] - 11/21/2024 8:35 AM EST Procalcitonin [...] ORDERABLES Final Res ult Performing Organization Address [facility] Co de Phone Number [facility] [address] [place] [address], * (ABNORMAL) B-type natriuretic peptide (11/20/2024 11:07 AM EST) BNP 267(H) <=100 pcg/mL LAB CHEMISTRY METHOD 11/20/2024 2:08 PM EST [facility] Blood Venous blood specimen / Unknown Venipuncture / Unknown 11/20/2024 11:07 AM EST 11/20/2024 11:24 AM EST Davidson Hebert MD LAB BLOOD ORDERABLES Final Result Performing Organization Address [facility] Co de Phone Number [facility] [address] [place] [address], [place] [phone] * (ABNORMAL) Microalbumin creatinine urine ratio (10/09/2024 10:07 AM EST) Creatinine, Urine 141.0 mg/dL LAB CHEMISTRY METHOD 10/09/2024 1:15 PM EST [facility] Microalb, Ur 267.0(H) 0.0 - 29.0 mg/L LAB CHEMISTRY METHOD 10/09/2024 1:15 PM [facility] Microalb/Crea t Ratio 189(H) <30 mg/g creat LAB CHEMISTRY METHOD 10/09/2024 1:15 PM [facility] Urine Urine specimen obtained by clean catch procedure / Unknown Non-blood Collection / Unknown 10/09/2024 10:07 AM EST 10/09/2024 10:07 AM EST us Moris Machado MD LAB URINE ORDERABLES Final Resu lt [facility] [address] [place] [address], [place] [phone] * Lipid panel with reflex to direct LDL (10/09/2024 9:57 AM EST) Cholesterol 129 0 - 200 mg/dL LAB CHEMISTRY METHOD 10/09/2024 3:21 PM [facility] Triglycerides 129 0 - 150 mg/dL LAB CHEMISTRY METHOD 10/09/2024 3:21 PM [facility] HDL 56 >=40 mg/dL LAB CHEMISTRY METHOD 10/09/2024 3:21 PM [facility] LDL Calculated 47 0 - 100 mg/dL LAB CHEMISTRY METHOD 10/09/2024 3:21 PM [facility] VLDL Cholesterol Oliverio 25.8 mg/dL LAB CHEMISTRY METHOD 10/09/2024 3:21 PM [facility] Non HDL Chol. (LDL+VLDL) 73 <145 mg/dL LAB CHEMISTRY METHOD 10/09/2024 3:21 PM [facility] Chol/HDL Ratio 2.3 0.0 - 4.4 LAB CHEMISTRY METHOD 10/09/2024 3:21 PM [facility] Blood Venous blood specimen / Unknown Venipuncture / Unknown 10/09/2024 9:57 AM EST 10/09/2024 9:57 AM EST Moris Machado MD LAB BLOOD ORDERABLES Final Resu lt BETZY [facility]AE [place] ([facility]) [facility] [address] [place] [address], [place] [phone] * Diabetes Eye Exam (02/17/2024) Diabetes: Annual Retina Eye Exam abstracted Historical Provider MD HEALTH MAINTENANCE Final Result * Depression Screening (12/08/2023) Pathologist [facility] Depression Screening abstracted Historical Provider MD HEALTH MAINTENANCE Final Result * Falls Risk Assessment (11/09/2023) Pathologist [facility] Falls Risk Assessment abstracted Historical Provider MD HEALTH MAINTENANCE Final Result from Last 3 Months or Most Recently Relevant to Health Maintenance Insurance [facility] MEDICARE Member Subscriber Plan / Payer (Ef fective 2024-Present) Name:Tommy Love Relation to Subscriber:Self Name:Tommy Love Payer ID:[id number] Group ID:[id number] Type:Not on file Address: [place] [address] [address] [id number] Advance Directives * Full Code - Confirmed [...] Agents on File Name Relationship Healthcare Agent [facility] p Communication Marissa Love Spouse Health Care Agent Care Teams Apparel Embroidery Digitizer Relationship Specialty Start Date End Date Moris Machado MD [address] [place] [id number] PCP - General Internal Medicine 10/09/24
--- OUTSIDE RECORDS SUMMARY | 2025-02-13 13:30 | XMS_ITS | Encounter Summary ---
Author Organization [facility] Address [address] [place] [address] Care Team Providers Care Vocational Nurse Name Role Phone Moris Machado MD Primary Care Provider [phone] Reason for Visit * Reason Onset Date Comments faxed orders 01/31/2025 Faxed orders rec eived from [facility] [id number] please sign and fax to [phone]. Encounter Details Date Type Department Care Team (Late st Contact Info) Description 01/31/2025 Telephone Adult Medicine [address] [phone] Moris Machado MD [address] [place] [phone] faxed orders (Faxed orders received from [facility] [id number] please sign and fax to [phone].) Social History Tobacco Use Types Packs/Day Years [...] 10:00 AM EDT Office Visit Endocrinology [address] [phone] Nicole Samson PA [address] [place] [address] 06/19/2025 11:00 AM EDT Office Visit Adult Medicine South [address] [phone] Juan Velasquez PA [address] [place], [place] documented as of this encounter Visit Diagnoses Not on filedocumented in this encounter Additional Health Concerns Assessment Noted Time PHQ-9 Depression Total Score: 7 12/10/19 25 11:19 AM EST A fall risk assessment has been complete d for the patient 12/10/2024 11:17 AM EST documented as of this encounter Care Teams Vocational Nurse Relationship Specialty Start Date End Date Moris Machado MD [address] [place] [phone] PCP - General Internal Medicine 10/09/24 documented as of this encounter
--- OUTSIDE RECORDS SUMMARY | 2025-02-13 13:30 | XMS_ITS | Encounter Summary ---
Author Organization [facility] Address [id number] [place] [id number] Care Team Providers Care Director Of Academic Support Name Role Phone Moris Machado MD Primary Care Provider [phone] Reason for Visit * Reason Onset Date Comments Faxed Order 01/31/2025 [facility] Orders# [id number], [id number], [id number] Encounter Details Date Type Department Care Team ([facility] st Contact Info) Description 01/31/2025 Telephone Adult Medicine [address] [phone] Aleshia Ramirez RN Faxed Order ([facility] Orders# [id number], [id number], [id number]) Social History Tobacco Use Types Packs/Day Years [...] Progress Notes * Aleshia Ramirez RN - 02/08/2025 3:58 PM EDT Signed orders faxed via [employer]. * Aleshia Ramirez RN - 01/31/2025 4:28 PM EST Received [facility] Orders# [id number], [id number], [id number]. Please sign and fax to [phone]. documented in this encounter Plan of Treatment Upcoming Encounters Date Type Department Care Team (Late st Contact Info) Description 03/21/2025 10:00 AM EDT Office Visit [address] [phone] Nicole Samson PA [address] [place] [address] 06/19/2025 11:00 AM EDT Office Visit Adult Medicine [address] [phone] Juan Velasquez PA [address] [place], [place] documented as of this encounter Visit Diagnoses Not on filedocumented in this encounter Additional Health Concerns Assessment Noted Time PHQ-9 Depression Total Score: 7 12/10/19 25 11:19 AM EST A fall risk assessment has been complete d for the patient 12/10/2024 11:17 AM EST documented as of this encounter Care Teams Director Of Academic Support Relationship Specialty Start Date End Date Moris Machado MD [address] [place] [address] PCP - General Internal Medicine 10/09/24 documented as of this encounter
--- OUTSIDE RECORDS SUMMARY | 2025-02-13 13:30 | XMS_ITS | Encounter Summary ---
Author Organization [facility] Address [address] [place] [address] Care Team Providers Care Video Machines Mechanic Name Role Phone Moris Machado MD Primary Care Provider [phone] Encounter Details Date Type Department Care Team (Latest Contact Info) Description 01/09/2025 Anticoagulation - Warfarin Visit [facility] - [address] [phone] Tiffanie Saba, KELLIE Atrial fibrillation, unspecified type (CMS/HCC) (Primary Dx); senior living (current) use of anticoagulants Social History Tobacco [...] 10:00 AM EDT Office Visit Endocrinology - [address] [phone] Nicole Samson PA [address] [facility] [address] 06/19/2025 11:00 AM EDT Office Visit Adult Medicine [facility] [address] [place] [phone] Juan Velasquez PA [address] [place] [address] documented as of this encounter Procedures Procedure [...] Diagnosis Atrial fibrillation, unspecified type (CMS/HCC)- Primary senior living (current) use of anticoagulants Long-term (current) use of anticoagulants documented in this encounter Additional Health Concerns Assessment Noted Time PHQ-9 Depression Total Score: 7 12/10/19 25 11:19 AM EST A fall risk assessment has been complete d for the patient 12/10/2024 11:17 AM EST documented as of this encounter Care Teams Video Machines Mechanic Relationship Specialty Start Date End Date Moris Machado MD [address] [place] [phone] PCP - General Internal Medicine 10/09/24 documented as of this encounter
--- OUTSIDE RECORDS SUMMARY | 2025-02-13 13:30 | XMS_ITS | Encounter Summary ---
Author Organization [facility] Address [address] [place] [address] Care Team Providers Care Drainage Engineer Name Role Phone Moris Machado MD Primary Care Provider Encounter Details Date Type Department Care Team (Latest Contact Info) Description 02/04/2025 Anticoagulation - Warfarin Visit Coumadin Clinic - [address] [phone] Xiomara Mcintyre LPN Atrial fibrillation, unspecified type (CMS/HCC) (Primary Dx); [facility] (current) use of anticoagulants Social History Tobacco [...] 10:00 AM EDT Office Visit Endocrinology - [address] [phone] Nicole Samson PA [address] [facility] [place] [place] [address] 06/19/2025 11:00 AM EDT Office Visit Adult Medicine [facility] [address] [place] [phone] Juan Velasquez PA [address] [place] [address] documented as of this encounter Procedures Procedure [...] Diagnosis Atrial fibrillation, unspecified type (CMS/HCC)- Primary 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
--- OUTSIDE RECORDS SUMMARY | 2025-02-13 13:30 | XMS_ITS | Encounter Summary ---
Author Organization [facility] Address [address] [place] [address] Care Team Providers Care Jersey Knitter Name Role Phone Moris Machado MD Primary Care Provider [phone] Encounter Details Date Type Department Care Team (Late Contact Info) Description 02/07/2025 Billing Patient Not Present Adult Medicine [address] [phone] Moris Machado MD [address] [place] [address] Social History Tobacco Use Types Packs/Day Years [...] Description 03/21/2025 10:00 AM EDT Office Visit [address] [phone] Nicole Samson PA [address] [place] [address] 06/19/2025 11:00 AM EDT Office Visit Adult Medicine [facility] [address] [place] [phone] Juan Velasquez PA [address] [place] [address] documented as of this encounter Visit Diagnoses Not on filedocumented in this encounter Additional Health Concerns Assessment Noted Time PHQ-9 Depression Total Score: 7 12/10/19 25 11:19 AM EST A fall risk assessment has been complete d for the patient 12/10/2024 11:17 AM EST documented as of this encounter Care Teams Jersey Knitter Relationship Specialty Start Date End Date Moris Machado MD [address] [place] [address] PCP - General Internal Medicine 10/09/24 documented as of this encounter
--- OUTSIDE RECORDS SUMMARY | 2025-02-13 13:30 | XMS_ITS | Encounter Summary ---
Author Organization [facility] Address [address] [place] [address] Care Team Providers Care Cam Milling Machine Operator Name Role Phone Moris Machado MD Primary Care Provider [phone] Reason for Visit * Reason Onset Date Comments Request For Order(s) 12/28/2024 [facility] order # [id number] received and placed in provider's bin. Please sign and fax back to [phone] Encounter Details Date Type Department Care Team (Late st Contact Info) Description 12/28/2024 Telephone Adult [address] [phone] Moris Machado MD [address] [place] [phone] Request For Order(s) ([facility] order # [id number] received and placed in provider's bin. Please sign and fax back to [phone]) Social History Tobacco Use Types Packs/Day Years [...] 1:07 PM EST [facility] order # [id number] received and placed in provider's bin. Please sign and fax back to [phone] documented in this encounter Plan of Treatment Upcoming Encounters Date Type Department Care Team (Late st Contact Info) Description 03/21/2025 10:00 AM EDT Office Visit [address] [phone] Nicole Samson PA [address] [place] [address] 06/19/2025 11:00 AM EDT Office Visit Adult Medicine South - [address] [phone] Juan Velasquez PA [address] [place], [place] documented as of this encounter Visit Diagnoses Not on filedocumented in this encounter Additional Health Concerns Assessment Noted Time PHQ-9 Depression Total Score: 7 12/10/19 25 11:19 AM EST A fall risk assessment has been complete d for the patient 12/10/2024 11:17 AM EST documented as of this encounter Care Teams Cam Milling Machine Operator Relationship Specialty Start Date End Date Moris Machado MD [address] [place] [address] PCP - General Internal Medicine 10/09/24 documented as of this encounter
--- OUTSIDE RECORDS SUMMARY | 2025-02-13 13:30 | XMS_ITS | Encounter Summary ---
Author Organization [facility] Address [address] [address] Phone Care Team Providers Care Program Director/Traffic Director Name Role Phone Moris Machado MD Primary Care Provider [phone] Reason for Visit * Reason Comments Med Refill Encounter Details Date Type Department Care Team (Late Contact Info) Description 01/22/2025 Refill [facility] [address] [place] [address] Davidson Quinonez MD [address] [address] Social History Tobacco Use Types [...] Office Visit [facility] [address] [place] [address] Davidson Quinonez MD [address] [address] documented as of this encounter Visit Diagnoses Not on filedocumented in this encounter Care Teams Program Director/Traffic Director Relationship Specialty Start Date End Date Moris Machado MD [address] [place] [address] PCP - General Internal Medicine 04/26/23 documented as of this encounter
--- OUTSIDE RECORDS SUMMARY | 2025-02-13 13:30 | XMS_ITS | Encounter Summary ---
Author Organization [facility] Address [address] [place] [address] Care Team Providers Care Dry Yard Worker Name Role Phone Moris Machado MD Primary Care Provider [phone] Encounter Details Date Type Department Care Team (Latest Contact Info) Description 02/11/2025 Anticoagulation - Warfarin Visit [facility] - [address] [phone] Xiomara Mcintyre LPN Atrial fibrillation, unspecified type (CMS/HCC) (Primary Dx); snf (current) use of anticoagulants Social History Tobacco [...] 10:00 AM EDT Office Visit Endocrinology - [address] [phone] Nicole Samson PA [address] [place] [address] 06/19/2025 11:00 AM EDT Office Visit Adult Medicine [facility] [address] [place] [address] Juan Velasquez PA [address] [place] [address] documented as of this encounter Procedures Procedure Name Priority Date/Time Associated Diagnosis Comments PROTHROMBIN TIME WITH INR Routine 02/11/2025 documented in this encounter Results * Prothrombin time with INR (02/11/2025) INR 2.9 Comment:comfort plus vna Prothrombin Time POC Blood Venous blood specimen / Unknown 02/11/2025 us Moris Machado MD LAB BLOOD ORDERABLES Final Resu lt documented in this encounter Visit Diagnoses Diagnosis Atrial fibrillation, unspecified type (CMS/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
--- OUTSIDE RECORDS SUMMARY | 2025-02-13 13:30 | XMS_ITS | Encounter Summary ---
Author Organization [facility] Address [address] [place] [address] Care Team Providers Care Podiatric Physician Name Role Phone Moris Machado MD Primary Care Provider [phone] Reason for Visit * Reason Onset Date Comments faxed orders 01/04/2025 Faxed orders rec eived from [facility] [id number], [id number], [id number] please sign and fax to [phone]. Encounter Details Date Type Department Care Team (Late st Contact Info) Description 01/04/2025 Telephone Adult Medicine [address] [phone] Moris Machado MD [address] [place] [phone] faxed orders (Faxed orders received from [facility] [id number], [id number], [id number] please sign and fax to [phone].) Social History Tobacco Use Types Packs/Day Years [...] Description 03/21/2025 10:00 AM EDT Office Visit [address] [phone] Nicole Samson PA [address] [place] [address] 06/19/2025 11:00 AM EDT Office Visit Adult Medicine [place] - [address] [phone] Juan Velasquez PA [address] [place] [address] documented as of this encounter Visit Diagnoses Not on filedocumented in this encounter Additional Health Concerns Assessment Noted Time PHQ-9 Depression Total Score: 7 12/10/19 25 11:19 AM EST A fall risk assessment has been complete d for the patient 12/10/2024 11:17 AM EST documented as of this encounter Care Teams Podiatric Physician Relationship Specialty Start Date End Date Moris Machado MD [address] [place] [address] PCP - General Internal Medicine 10/09/24 documented as of this encounter
--- OUTSIDE RECORDS SUMMARY | 2025-02-13 13:31 | XMS_ITS | Clinical Summary ---
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 He continues on cardioprotective medical [...] Refill [facility] [address] [place] [address] Davidson Quinonez MD 11/19/2024 1:45 PM EST Office Visit [facility] [address] [place] [address] Davidson Quinonez MD Stage 3b chronic kidney [...] Visit [facility] [address] [place] [address] Davidson Quinonez MD [address] [facility] [address] [place] [address] Health Maintenance Due Date Last [...] patient's age to complete this topic Insurance [facility] ([id number]) [facility] ([id number]) Care Teams Errand Runner Relationship Specialty Start Date End Date Moris Machado MD [address] [place] [address] PCP - General Internal Medicine 04/26/23
--- OUTSIDE RECORDS SUMMARY | 2025-02-13 13:31 | XMS_ITS | Data Portability ---
Author Organization [facility] Address [address] [place] [address] Care Team Providers Care Nurse Extern Name Role Phone HIM CCA OTHER Assessment Encounter Date Assessment Date Assessment LastModified by Organization Details LastModified Time 12/19/2024 12/19/2024 I provided real -time medical direction via phone for this encounter and was available for additional phone-based assistance as needed. I have reviewed and agree with the Assessment and Plan as documented by the Maintenance Technician 2Nd Shift. Patient given the opportunity to ask questions. Our service contacted for an assessment of: Shortness of breaths As per above, patient was complaining of several hours of being short of breath called the service for evaluation. On usual O2 at home. No change in O2 saturations. Denies cough, fever, chills, chest pain, dyspnea on exertion. Per accounts manager on the scene, vital signs are stable [...] Available No t Available [employer] [facility] [address] [place] USE DIRECTED active Not Available Not Available [...] Address Organization Details Last Updated DateTime 5 33384.3 76 g 72 /min 91 % 91 [...] SNOMED-CT Code Diagnosis ICD10 Code Diagnosis Note [id number] Nithya Blair MD Main - [facility] [address] [place] [address] 12/19/2024 20:48:25 12/19/2024 23:46:42 Dyspnea [id number] R06.00 Health Concerns Section Related Observation LastModified by Organization Detai ls LastModified Time None Recorded Concern Status LastModified by Organization Details LastModified Time None Recorded Advance Directives Directive None Recorded Payers Encounter Date Sequence Insurance Name Policy Number Policy Coto Covered Member ID Coto Member ID Guarantor Name 12/19/2024 1 [facility] - DOS ON OR AFTER 2023 - DUAL ELIGIBLE - [facility] OPTIONS AND ONE CARE (MEDICARE REPLACEMENT/ADV ANTAGE - HMO) Tommy Love [id number] Tommy Love Notes Date Note Type Note [...] Allergies Reviewed at 12/19/2024 - 16:51 Comments: Property Officer verified the name//address and phone number. Pt [...] .................. .................. .................. .................. .................. .................. ............... Maintenance Technician 2Nd Shift Note From Tobias Asif: Pt co episode [...] rhonchi detectable. Good skin color and turgor. [facility] [place] [place] contacted and advised to monitor symptoms. Education on symptoms indicating the ER. Pt advised to follow up with PCP in regards to anxiety issues. Pt sons sts he will call PCP about it tomorrow. Son translated during visit. Pt and family pleasant and cooperative. Pt signed consent during visit and was uploaded. .................. .................. .................. .................. .................. .................. .................. ............... [facility] [place] [place] Consulted: Nithya Blair .................. .................. .................. .................. .................. .................. .................. ............... Disposition: Fulfilled Nithya Blair MD [address] [facility],[address], [place], [address], [employer], SHIRAZ 12/19/2024 20:54:28
--- OUTSIDE RECORDS SUMMARY | 2025-02-13 13:31 | XMS_ITS | Encounter Summary ---
Author Organization [facility] Address [address] [facility] [address] [place] [address] Phone Care Team Providers Care Sole Splitter Name Role Phone Moris Machado MD Primary Care Provider [phone] Encounter Details Date Type Department Care Team (Late st Contact Info) Description 02/27/2024 Office Communication [facility] [address] [facility] [address] [place] [phone] Davidson Quinonez MD [address] [facility] [address] [place] [phone] Social History Tobacco Use Types Packs/Day Years [...] [facility] [address] [place] [address] Davidson Quinonez MD [address] [address] documented as of this encounter Visit Diagnoses Not on filedocumented in this encounter Care Teams Sole Splitter Relationship Specialty Start Date End Date Moris Machado MD [address] [place] [address] PCP - General Internal Medicine 04/26/23 documented as of this encounter
== END 2025-02-13 11:44 | disposition home or self-care (01) ==
LOC: HO.HPS 11:08
PROVIDERS: PCP Internal Medicine; Visit Provider Hospitalist
DX: J44.1 Chronic obstructive pulmonary disease with (acute) exacerbation (principal); J96.11 Chronic respiratory failure with hypoxia; I27.20 Pulmonary hypertension, unspecified; J84.9 Interstitial pulmonary disease, unspecified; J84.10 Pulmonary fibrosis, unspecified; R91.1 Solitary pulmonary nodule
CPT/HCPCS: 99215; G2211

== ENCOUNTER → 2025-02-13 11:07 | Outpatient (BNVA) | payer OTHER, SELFPAY | PROVIDERS: PCP Internal Medicine; Visit Provider Hospitalist | DX: I27.20 Pulmonary hypertension, unspecified (principal); J43.9 Emphysema, unspecified; J84.10 Pulmonary fibrosis, unspecified; J44.1 Chronic obstructive pulmonary disease with (acute) exacerbation; J96.11 Chronic respiratory failure with hypoxia; J84.9 Interstitial pulmonary disease, unspecified; R91.1 Solitary pulmonary nodule | CPT/HCPCS: 99212 ==

== ENCOUNTER → 2025-02-19 23:59 | Outpatient (BNV) | payer OTHER, SELFPAY ==
--- NOTE | 2025-02-22 16:45 | MHC.OFFVIS ---
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) heart failure with preserved ejection fraction IPF (idiopathic pulmonary fibrosis) COPD (chronic obstructive pulmonary disease) Reactive airway disease Pulmonary hypertension Chronic respiratory failure CHF (congestive heart failure) ILD (interstitial lung disease) Acute exacerbation of CHF (congestive heart failure) SVT (supraventricular tachycardia) CHF exacerbation Chronic anticoagulation Atrial fibrillation Chronic hypoxemic respiratory failure Hypertension Rheumatoid arthritis Lymphadenopathy Surgical History Hx of colonoscopy Social History Household Members: Spouse and Children Housing: House Do you presently have visiting nurse or other home services: No Alcohol intake: former Comment: patient rings appropriately Patient Tobacco Use Status: Former Tobacco user Tobacco use type: Cigarette Years Smoked: 40 e-Cigarette/Vaping Use: Former Use Second Hand Smoke Exposure: No Advance Directives Date on File: 06/27/23 service: No Current occupational status: retired Office Procedures Cardiac Device Check Cardiac Device Check Details: Monitoring period dates: 12/07/24 - 02/19/25 Optimal PA pressure range: ADDY goal 45mmhg Procedure code: 72284 BACKGROUND: Tommy is implanted with the CardioMEMS PA Sensor.? I use this technology to monitor PA pressures on a weekly basis to ensure patients are within their optimal range to prevent decompensation.? SUMMARY:? I utilized the remote monitoring platform (Flashstock) to set optimal targets for pulmonary artery pressure thresholds as part of acute and chronic management of patient?s heart failure. During the period indicated above, I monitored the patient?s pulmonary artery pressures weekly via trend analysis and notification reports which provide alerts when patient?s PA pressures were outside of range to prompt immediate action in medication changes and communications.? The weekly reports are archived in the [employer] system which serve as a parallel record to document weekly PA pressures, medication changes, and clinical notes. I have reviewed readings on 12/07, 12/14, 12/21, 12/28, 01/04, 01/11, 01/18, 01/25, 02/01, 02/08 and 02/15. He has not sent readings consistently. since that day. We have reached out to him. His ADDY readings have ranged 39-46mmhg. He was seen in office recently. Not volume overloaded. 56901 - Remote monitoring of wireless pulmonary artery pressure sensor Procedure code (CPT) selection complete Assessment & Plan Assessment & Plan (1) Presence of CardioMEMS HF system: Code(s): Z95.818 - Presence of other cardiac implants and grafts Category: Medical Plan: monthly report Coding Level of Care Code Procedure Only Diagnoses Presence of CardioMEMS HF system Z95.818 CPT Codes Cardiac Device Check - Cardiac Device 17: 04992 - Remote monitoring of wireless pulmonary artery pressure sensor ([id number])
== END ==
PROVIDERS: PCP Internal Medicine; Visit Provider Nurse Practitioner Family
DX: Z45.09 Encounter for adjustment and management of other cardiac device (principal)
CPT/HCPCS: 93264

== ENCOUNTER → 2025-03-26 23:59 | Outpatient (BNV) | payer OTHER, SELFPAY ==
--- NOTE | 2025-04-05 17:50 | A.OFFVIS_ITS ---
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) heart failure with preserved ejection fraction IPF (idiopathic pulmonary fibrosis) COPD (chronic obstructive pulmonary disease) Reactive airway disease Pulmonary hypertension Chronic respiratory failure CHF (congestive heart failure) ILD (interstitial lung disease) Acute exacerbation of CHF (congestive heart failure) SVT (supraventricular tachycardia) CHF exacerbation Chronic anticoagulation Atrial fibrillation Chronic hypoxemic respiratory failure Hypertension Rheumatoid arthritis Lymphadenopathy Surgical History Hx of colonoscopy Social History Household Members: Spouse and Children Housing: House Do you presently have visiting nurse or other home services: No Alcohol intake: former Comment: patient rings appropriately Patient Tobacco Use Status: Former Tobacco user Tobacco use type: Cigarette Years Smoked: 40 e-Cigarette/Vaping Use: Former Use Second Hand Smoke Exposure: No Advance Directives Date on File: 06/27/23 service: No Current occupational status: retired Office Procedures Cardiac Device Check Cardiac Device Check Details: Monitoring period dates: 02/20/25 - 03/26/25 Optimal PA pressure range: ADDY goal 45mmhg Procedure code: 59492 BACKGROUND: Tommy is implanted with the CardioMEMS PA Sensor.? I use this technology to monitor PA pressures on a weekly basis to ensure patients are within their optimal range to prevent decompensation.? SUMMARY:? I utilized the remote monitoring platform ([employer]) to set optimal targets for pulmonary artery pressure thresholds as part of acute and chronic management of patient?s heart failure. During the period indicated above, I monitored the patient?s pulmonary artery pressures weekly via trend analysis and notification reports which provide alerts when patient?s PA pressures were outside of range to prompt immediate action in medication changes and communications.? The weekly reports are archived in the [employer] system which serve as a parallel record to document weekly PA pressures, medication changes, and clinical notes. I have reviewed readings on 02/22, 03/01, 03/08, 03/15, 03/22, 03/26..ADDY readings have ranged 38-48mmhg. No diuretic changes made. 65574 - Remote monitoring of wireless pulmonary artery pressure sensor Procedure code (CPT) selection complete Assessment & Plan Assessment & Plan (1) Presence of CardioMEMS HF system: Code(s): Z95.818 - Presence of other cardiac implants and grafts Category: Medical Plan: monthly report Coding Level of Care Code Procedure Only Diagnoses Presence of CardioMEMS HF system Z95.818 CPT Codes Cardiac Device Check - Cardiac Device 17: 54591 - Remote monitoring of wireless pulmonary artery pressure sensor ([id number])
== END ==
PROVIDERS: PCP Internal Medicine; Visit Provider Nurse Practitioner Family
DX: Z45.09 Encounter for adjustment and management of other cardiac device (principal)
CPT/HCPCS: 93264

== ENCOUNTER → 2025-05-07 23:59 | Outpatient (BNV) | payer OTHER, SELFPAY ==
--- NOTE | 2025-05-14 16:03 | MHC.OFFVIS ---
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) heart failure with preserved ejection fraction IPF (idiopathic pulmonary fibrosis) COPD (chronic obstructive pulmonary disease) Reactive airway disease Pulmonary hypertension Chronic respiratory failure CHF (congestive heart failure) ILD (interstitial lung disease) Acute exacerbation of CHF (congestive heart failure) SVT (supraventricular tachycardia) CHF exacerbation Chronic anticoagulation Atrial fibrillation Chronic hypoxemic respiratory failure Hypertension Rheumatoid arthritis Lymphadenopathy Surgical History Hx of colonoscopy Social History Household Members: Spouse and Children Housing: House Do you presently have visiting nurse or other home services: No Alcohol intake: former Comment: patient rings appropriately Patient Tobacco Use Status: Former Tobacco user Tobacco use type: Cigarette Years Smoked: 40 e-Cigarette/Vaping Use: Former Use Second Hand Smoke Exposure: No Advance Directives Date on File: 06/27/23 service: No Current occupational status: retired Office Procedures Cardiac Device Check Cardiac Device Check Details: Monitoring period dates: 03/27/25 - 05/07/25 Optimal PA pressure range: ADDY goal 45mmhg Procedure code: 44338 BACKGROUND: Tommy is implanted with the CardioMEMS PA Sensor.? I use this technology to monitor PA pressures on a weekly basis to ensure patients are within their optimal range to prevent decompensation.? SUMMARY:? I utilized the remote monitoring platform ([employer]) to set optimal targets for pulmonary artery pressure thresholds as part of acute and chronic management of patient?s heart failure. During the period indicated above, I monitored the patient?s pulmonary artery pressures weekly via trend analysis and notification reports which provide alerts when patient?s PA pressures were outside of range to prompt immediate action in medication changes and communications.? The weekly reports are archived in the [employer] system which serve as a parallel record to document weekly PA pressures, medication changes, and clinical notes. I have reviewed readings on 03/29, 04/05, 04/12, 04/19, 04/26 and 05/03..ADDY readings have ranged 41-50mmhg. No diuretic changes made. 61403 - Remote monitoring of wireless pulmonary artery pressure sensor Procedure code (CPT) selection complete Assessment & Plan Assessment & Plan (1) Presence of CardioMEMS HF system: Code(s): Z95.818 - Presence of other cardiac implants and grafts Category: Medical Plan: monthly report Coding Level of Care Code Procedure Only Diagnoses Presence of CardioMEMS HF system Z95.818 CPT Codes Cardiac Device Check - Cardiac Device 17: 35434 - Remote monitoring of wireless pulmonary artery pressure sensor ([id number])
== END ==
PROVIDERS: PCP Internal Medicine; Visit Provider Nurse Practitioner Family
DX: Z45.09 Encounter for adjustment and management of other cardiac device (principal)
CPT/HCPCS: 93264

== ENCOUNTER → 2025-06-25 23:59 | Outpatient (BNV) | payer OTHER, SELFPAY ==
--- NOTE | 2025-07-05 17:39 | A.OFFVIS_ITS ---
Intake Visit Reasons: Remote Cardiomems- [facility] Allergies No Known Allergies Allergy (Unknown, Verified 06/26/25 10:51) NOT APPLICABLE PFSH Medical History COPD exacerbation Pulmonary nodule 1 cm or greater in diameter Combined pulmonary fibrosis and emphysema (CPFE) (HFpEF) heart failure with preserved ejection fraction IPF (idiopathic pulmonary fibrosis) COPD (chronic obstructive pulmonary disease) Reactive airway disease Pulmonary hypertension Chronic respiratory failure CHF (congestive heart failure) ILD (interstitial lung disease) Acute exacerbation of CHF (congestive heart failure) SVT (supraventricular tachycardia) CHF exacerbation Chronic anticoagulation Atrial fibrillation Chronic hypoxemic respiratory failure Hypertension Rheumatoid arthritis Lymphadenopathy Surgical History Hx of colonoscopy Social History Household Members: Spouse and Children Housing: House Do you presently have visiting nurse or other home services: No Alcohol intake: former Comment: patient rings appropriately Patient Tobacco Use Status: Former Tobacco user Tobacco use type: Cigarette Years Smoked: 40 e-Cigarette/Vaping Use: Former Use Second Hand Smoke Exposure: No Advance Directives Date on File: 06/27/23 service: No Current occupational status: retired Office Procedures Cardiac Device Check Cardiac Device Check Details: Monitoring period dates: 05/08/25- 06/25/26 Optimal PA pressure range: ADDY goal 45mmhg Procedure code: 82241 BACKGROUND: Tommy is implanted with the CardioMEMS PA Sensor.? I use this technology to monitor PA pressures on a weekly basis to ensure patients are within their optimal range to prevent decompensation.? SUMMARY:? I utilized the remote monitoring platform (iHook[employer] Social) to set optimal targets for pulmonary artery pressure thresholds as part of acute and chronic management of patient?s heart failure. During the period indicated above, I monitored the patient?s pulmonary artery pressures weekly via trend analysis and notification reports which provide alerts when patient?s PA pressures were outside of range to prompt immediate action in medication changes and communications.? The weekly reports are archived in the [employer] Social system which serve as a parallel record to document weekly PA pressures, medication changes, and clinical notes. I have reviewed readings on 05/10, 05/17, 05/24, 05/30, 06/07, 06/14, 06/21. ADDY readings have ranged 43-51mmhg. No diuretic changes made 95709 - Remote monitoring of wireless pulmonary artery pressure sensor Procedure code (CPT) selection complete Assessment & Plan Assessment & Plan (1) Presence of CardioMEMS HF system: Code(s): Z95.818 - Presence of other cardiac implants and grafts Category: Medical Plan: monthly report Coding Level of Care Code Procedure Only Diagnoses Presence of CardioMEMS HF system Z95.818 CPT Codes Cardiac Device Check - Cardiac Device 17: 10622 - Remote monitoring of wireless pulmonary artery pressure sensor ([id number])
== END ==
PROVIDERS: PCP Internal Medicine; Visit Provider Nurse Practitioner Family
DX: Z45.09 Encounter for adjustment and management of other cardiac device (principal)
CPT/HCPCS: 93264

== ENCOUNTER 2025-06-26 10:38 | Outpatient (AMB) | payer OTHER, SELFPAY ==
--- NOTE | 2025-06-26 10:47 | MHC.OFFVIS ---
Vital Signs 06/26/25 10:48 Height 5 ft 10 in Weight 185 lb 3.013 oz BMI 26.6 BP 156/60 H Blood Pressure Location Lt brachial Position Sitting Pulse 62 Pulse Source Pulse Oximeter Pulse Oximetry (%) 90 L Oxygen Delivery Method Nasal Cannula Oxygen Flow Rate 6 Intake Visit Reasons: Pulmonary HTN Allergies No Known Allergies Allergy (Unknown, Verified 06/26/25 10:51) NOT APPLICABLE HPI Comments Details: The patient is 79-year-old gentleman with a known history of emphysema, interstitial lung disease along with severe pulmonary hypertension on hot oxygen requirements. He has been followed closely at [facility]. The patient was evaluated and placed on prednisone, initially starting at 10 mg and now 7.5 mg in part to treat the interstitial lung disease likely related to the underlying connective tissue disease. Recently he was admitted to the hospital worsening shortness of breath. He was treated appropriately. He did have a CT scan of the chest that I personally reviewed. He does have moderate to severe emphysema and also bilateral interstitial lung disease. No significant change when compared to 2020 which is reassuring that is not significantly progressive. However, patient also had an echocardiogram demonstrating very severe elevations in his pulmonary pressures with a very dilated RV concerning for potentially even higher pulmonary arterial pressures. During the visit we did go for brief walking oximetry in the patient did desaturate in the pulse oxygen that he came in with and at rest he did need 4 L continuous oxygen. Explained to him that the pulse does not work for him. He needs to be on continues oxygen and he is agreeable to this and will make arrangements with his [employer] company. In addition that with walking on 6 L he barely was able to keep a 88%. Therefore, I will request an Oxymizer pendant from his [employer] company in order to provide him enough oxygen. I do believe that his pulmonary hypertension is out of proportion to those pulmonary disease that he has. In his EF and left ventricular anatomy appears to be normal. Therefore, I do believe that considering a basal dilator to treat severe pulmonary hypertension that is out of proportion to his underlying pulmonary disease would be reasonable. The patient does have connective tissue disease which can predispose to group 1 pulmonary hypertension. 02/17/2024 the patient is here for a pulmonary follow-up visit. He has doing a little better. His oxygen requirements have decreased a little bit. No longer requires an Oxymizer pendant. Although the conserving device is not sufficient. He did come in with a pulse ox in the low 80s on his 3-4 L pulse. Therefore the patient needs to be on continues oxygen. We did provide him an operative tank poor continues oxygen at this time. He needs to use 2 L at rest and 3 L with activity. His degree of respiratory failure is primarily due to his pulmonary hypertension. He is severe pulmonary hypertension based on his echo with a very dilated RV. The patient was approved to start sildenafil. But, then his insurance changed and the patient was not aware and therefore he was not able to start the medication. He had a very abnormal echocardiogram. Again consistent with WHO group 1. therefore, we will request the patient started on sildenafil again will hopes that we can control his pulmonary hypertension in therefore decrease his significant oxygen requirements. Once the patient is on the vasodilators therapy we can repeat his 6 minute walk test in hopes that he can tolerate a conserving device and have an easier time carrying the oxygen. Also to note, the patient does have significant daytime drowsiness. Will go ahead and request an in-law his Augusta score is elevated 10/21. Will request an in-lab sleep study at this time. 06/14/2024 the patient is here for pulmonary follow-up visit. Overall he was recently hospitalized with acute on chronic hypoxic respiratory failure. The patient did respond well to steroids. He currently is on 7.5 mg of prednisone. In addition to that he has been on the sildenafil for the pulmonary hypertension. While in the hospital he did have a CT scan of the chest that I did personally review with him in the family. 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 At this point will continue him on the sildenafil 20 mg. Will request an echocardiogram prior to his next visit however. He does want have a portable oxygen concentrator. Explained to him that his oxygen requirements are too high. We did try him on 5 L pulse while resting his oxygen was only about 86%. He understands that he will need a continuous flow portable oxygen concentrator and does her not covered by the [employer] would have to be an [id number] expense be very expensive. I will talk to the [employer] company in order for him to get oxygen tanks prefilled because he is having hard time with filling station and also with the [id number] to be able to carry the the cylinder oxygen tanks with more ease. The patient does require 4 L of oxygen at rest and also requires up to 6 L with activity. 09/21/2024 the patient is here for a pulmonary follow-up visit. Overall he is feeling well. He continues to use his oxygen with good effect. He is tolerating the sildenafil. The patient has been on 20 mg 3 times a day. He did have a repeat echocardiogram demonstrating the PA pressures decreasing from 75 mmHg down to 49 mmHg which is reassuring. He continues to have significant oxygen requirements however. This is likely multifactorial. Based on the fact that he still has moderate degree of pulmonary hypertension will try to increase the sildenafil slowly to make sure does not develop any adverse hypoxia flash edema. He will take it 1/2 tablets and then increase it to 2 tablets 3 times a day. We can also add a 2nd agent which would be reasonable if he continues to have elevated pressures and continues have significant hypoxia. We did try him on a portable oxygen concentrator but he did not qualify. He is still requiring 6 L with activity. We did check ear probe in addition to a finger probe and they both were given low numbers. Will go ahead heading request a arterial blood gas to better get a sense of oxygen partial pressure and see adequate oxygenation in that matter. He is going to do that once he is able to come into the hospital and have that done. In addition to that he did have a CT scan back in April demonstrating 1.1 cm pulmonary nodule among others. He also has interstitial lung disease and emphysema. Will go ahead and repeat a CT scan prior to the next visit to assess his nodular density. Based on his oxygen needs and is decompensated state will be difficult to perform any semi invasive interventions or diagnostic interventions. 11/15/2024 the patient is here for a pulmonary follow-up visit. The patient overall has been doing okay. He was recently hospitalized. While in hospital the patient was increased on the sildenafil to 40 mg t.i.d. which she seems to be tolerating. His oxygen needs are still high. Explained to him that the basal dilator may also increase his oxygen needs. But at least the pulmonary pressures have come down nicely. The patient also has underlying pulmonary fibrosis. He did have a recent CT scan of the chest which I personally reviewed with him and his son. Seems like the interstitial lung disease is a little bit worse. He has been on 10 mg of prednisone that has been helpful but at this time I do believe that will benefit from Ofev to try to minimize worsening interstitial lung disease and pulmonary fibrosis. Will go ahead and sign a consent and will 5 request the medication from the specialty pharmacy in once he gets the approval from the insurance. We did talk about the side effects of the medication including the diarrhea. For now he will continue with current respiratory regimen. Will wait to hear about the office. The patient will return in 3 months with PFTs. The patient has any issues prior to that he will call for an earlier assessment. 12/27/2024 patient is here for a pulmonary hospital follow-up visit. Patient was briefly admitted to [facility] with worsening respiratory symptoms. He did have a chest x-ray which I personally reviewed demonstrating some increased haziness over the right hilar basilar area. He was treated for COPD exacerbation. Subsequently discharged. He is feeling better he still on 40 mg of prednisone. He is based on prednisone 10 mg. He also started the Ofev which she seems to be tolerating well. Initially he had significant diarrhea and vomiting but not subsided. He is happy with the feels like it is working. He is also continues on the 40 mg of Revatio that he takes 3 times a day for his pulmonary hypertension. Will go ahead and wean down the prednisone hopefully down to 10 mg. But if he has any difficulties doing so he will call me. I did send additional prednisone to the pharmacy. He did have PFTs scheduled for tomorrow hold off on those right now and postpone them to sometime in 6-8 weeks when he comes back. We did talk about pulmonary rehabilitation. The patient is resistant right now because of the cold weather. Will reassess after his PFTs we can consider [facility] since he lives in [place]. 02/13/2025 the patient is here for pulmonary follow-up visit. Overall she is feeling better. He is tolerating the 10 mg of prednisone. Although he is getting little cushingoid. Also been on the Ofev and he has been tolerating that well. However, for some reason he has not been able refill it at the pharmacy. He is going to try calling again and I did confirm that we did fax her with a prescription back in December. She has any difficulties doing so he will call the office and we can then try to reflux the order again. He is also taking the Revatio 40 mg 3 times a day seems to be tolerating that well. Oxygen requirements are still high. He needs about 4-6 L of oxygen with activity. Today when he came into the office he was saturating the 70s on 4 L continuous. He needs to have a Oxymizer pendant when he walks portable oxygen outside of the home. I did request another order for Oxymizer pendant from his [employer] company, [facility]. Also is feeling station is very slow and he needs additional tanks. Therefore I did also reach out to the [employer] company, [facility] to check his filling station to make sure that is working appropriately. He is going to continue with the current respiratory therapy. Will plan to have him come follow-up again in 3-4 months. He will continue with the prednisone of 10 in addition to the other therapies. Once he returns we can plan to schedule his repeat echocardiogram and we can also think about repeating imaging studies. 06/26/2025 the patient is here for a pulmonary follow-up visit. Overall he is doing okay although he had to stop the Ofev because it was causing so much diarrhea. He seems to be doing okay without it. He continues on the sildenafil in his respiratory therapy. He also continues on the oxygen. Typically uses 4 L at rest and 6 L with activity. Although today he was desaturating down to the low 80s on the 4 L. We did work on deep breathing exercises and did provide him with an Oxymizer pendant that works a lot better. I did request an Oxymizer pendant for him to use will portability from his [employer] company, [facility]. I sent a script over. I also let them know. In the meantime he is going to come back for an x-ray and also pulmonary function studies in the next [address]. [address] scan was back in October 2024. Subsequently later will consider repeating the CAT scan specially since he is off the antifibrotic agent. [facility] Medical History COPD exacerbation Pulmonary nodule 1 cm or greater in diameter Combined pulmonary fibrosis and emphysema (CPFE) (HFpEF) heart failure with preserved ejection fraction IPF (idiopathic pulmonary fibrosis) COPD (chronic obstructive pulmonary disease) Reactive airway disease Pulmonary hypertension Chronic respiratory failure CHF (congestive heart failure) ILD (interstitial lung disease) Acute exacerbation of CHF (congestive heart failure) SVT (supraventricular tachycardia) CHF exacerbation Chronic anticoagulation Atrial fibrillation Chronic hypoxemic respiratory failure Hypertension Rheumatoid arthritis Lymphadenopathy Surgical History Hx of colonoscopy Social History Household Members: Spouse and Children Housing: House Do you presently have visiting nurse or other home services: No Alcohol intake: former Comment: patient rings appropriately Patient Tobacco Use Status: Former Tobacco user Tobacco use type: Cigarette Years Smoked: 40 e-Cigarette/Vaping Use: Former Use Second Hand Smoke Exposure: No Advance Directives Date on File: 06/27/23 service: No Current occupational status: retired Review of Systems Const All systems reviewed & are unremarkable except as noted in HPI and below ENT Denies dizziness Card Details: wears O2 continually Denies chest pain, Denies chest pain at rest, Denies chest pain with activity, Denies rapid heart rate, Denies pedal edema, Denies edema, Denies leg edema, Denies lightheadedness, Denies palpitations, Reports dyspnea, Reports dyspnea on exertion and Denies orthopnea Resp Denies cough, Reports dyspnea and Reports dyspnea on exertion GI Denies hematochezia and Denies change in stool character Musc Denies abnormal gait, Denies limited range of motion, Denies muscle cramps, Denies muscle weakness, Denies numbness, Denies radiating pain into limb, Denies stiffness and Denies tingling Neuro Denies abnormal gait, Denies dizziness, Denies numbness and Denies tingling Endo Denies palpitations Physical Exam Vital Signs: Last Vital Signs Pulse 62 06/26/25 10:48 BP 156/60 H 06/26/25 10:48 Pulse Ox 90 L 06/26/25 10:48 Oxygen Delivery Method Nasal Cannula 06/26/25 10:48 Oxygen Flow Rate 6 06/26/25 10:48 BMI result Body Mass Index 26.6 Last Vital Signs Temp 96.8 F 05/23/24 07:05 Pulse 63 05/23/24 07:49 Resp 16 05/23/24 07:05 BP 138/63 05/23/24 07:49 Pulse Ox 93 05/23/24 07:05 O2 Del Method Oxymask 05/23/24 07:05 O2 Flow Rate 7 05/23/24 07:05 Oxygen Flow Rate 8 05/22/24 12:36 BMI result Body Mass Index 24.9 Const General: alert HEENT Head: Yes normocephalic Neck Neck: Yes normal visual inspection, Yes full ROM and Yes no lymphadenopathy Chest Chest palpation & inspection: normal inspection of the chest Resp Effort & Inspection: normal respiratory effort Auscultation: rales, no rhonchi and diminished lung sounds Cardio Rate: regular rate Rhythm: regular rhythm Heart sounds: S1 normal heart sound present and S2 normal heart sound present GI Palpation (GI): Soft to palpation and nontender Auscultation: normal bowel sounds Skin General skin exam: no rashes or lesions noted Extrem General: Yes clubbing and No cyanosis Assessment & Plan Assessment & Plan (1) COPD (chronic obstructive pulmonary disease): Code(s): J44.9 - Chronic obstructive pulmonary disease, unspecified Category: Medical Qualifiers: COPD type: COPD with acute exacerbation Qualified Code(s): J44.1 - Chronic obstructive pulmonary disease with (acute) exacerbation (2) Chronic respiratory failure: Code(s): J96.10 - Chronic respiratory failure, unspecified whether with hypoxia or hypercapnia Category: Medical Qualifiers: Respiratory failure complication: hypoxia Qualified Code(s): J96.11 - Chronic respiratory failure with hypoxia (3) Pulmonary hypertension: Comment: WHO group 1 Code(s): I27.20 - Pulmonary hypertension, unspecified Category: Medical (4) ILD (interstitial lung disease): Code(s): J84.9 - Interstitial pulmonary disease, unspecified Category: Medical (5) Combined pulmonary fibrosis and emphysema (CPFE): Code(s): J43.9 - Emphysema, unspecified; J84.10 - Pulmonary fibrosis, unspecified Category: Medical (6) Pulmonary nodule 1 cm or greater in diameter: Code(s): R91.1 - Solitary pulmonary nodule Category: Medical Plan continue PD5 inhibitor, sildenafil 40mg PO TID for Pulmonary HTN pt stopped OFEV for interval worsening of pulmonary fibrosis due to GI side effects Continue Breo JORGITO as needed Oxygen revision: 4L/min at rest, 6L/min with activity. requesting oximizer pendant while out side of the home diuresis as tolerated prednisone taper 10mg daily ECHO was better PAP 79->49 mmHg Bloodwork/CXR/PFTS in 3 months F/U in 3 months Orders: Orders Venous Blood Gas Today I27.20 - Pulmonary hypertension, unspecified Basic Metabolic Panel Today I27.20 - Pulmonary hypertension, unspecified XR chest 2V Today I27.20 - Pulmonary hypertension, unspecified PFT pulmonary function test Today I27.20 - Pulmonary hypertension, unspecified Coding Level of Care Code Est Pt Level 5 (91192) Complex EM visit Add On G2211 Diagnoses Centrilobular emphysema J44.1 COPD type: COPD with acute exacerbation Chronic respiratory failure with hypoxia J96.11 Respiratory failure complication: hypoxia Pulmonary hypertension I27.20 ILD (interstitial lung disease) J84.9 Combined pulmonary fibrosis and emphysema (CPFE) J43.9; J84.10 Pulmonary nodule 1 cm or greater in diameter R91.1 Time Spent (min) 40
[2025-06-26 10:48] VITALS: BP 156/60; PULSE 62; O2SAT 90; BMI 26.6
--- OUTSIDE RECORDS SUMMARY | 2025-06-26 11:37 | XMS_ITS | Encounter Summary ---
Author Organization [facility] Address [address] [place] [address] Care Team Providers Care Broadcast Field Supervisor Name Role Phone Moris Machado MD Primary Care Provider [phone] Encounter Details Date Type Department Care Team (Late st Contact Info) Description 01/25/2025 Billing Patient Not Present Adult Medicine [address] [address] Moris Machado MD [address] [place] [phone] Social History Tobacco Use Types Packs/Day Years [...] Upcoming Encounters Date Type Department Care Team (Latest Contact Info) Description 07/17/2025 10:30 AM EDT Anticoagulation - Warfarin [facility] [address] [facility] [place] [phone] documented as of this encounter Visit Diagnoses Not on filedocumented in this encounter Additional Health Concerns Infection Onset Date Last Indicated Resolved Time Respiratory Rule-Out 02/21/2025 02/21/2025 025 8:42 AM EDT COVID-19 Rule-Out 02/21/2025 02/21/2025 02/21/2025 8:42 AM EDT Assessment Noted Time PHQ-9 Depression Total Score: 7 12/10/19 25 11:19 AM EST A fall risk assessment has been complete d for the patient 12/10/2024 11:17 AM EST documented as of this encounter Care Teams Broadcast Field Supervisor Relationship Specialty Start Date End Date Moris Machado MD [address] [place] [id number] PCP - General Internal Medicine 10/09/24 documented as of this encounter
--- OUTSIDE RECORDS SUMMARY | 2025-06-26 11:37 | XMS_ITS | Clinical Summary ---
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 Lymphadenopathy 03/05/2022 08/04/2023 Overview (08/04/2023): [place] [facility] [place]21 Influenza 03/05/2022 08/04/2023 Overview (08/04/2023): D/C'd from [facility] [place] 11/23/21 Interstitial pulmonary disease 11/30/2021 0 08/04/2023 Overview (08/04/2023): D/C'd from [facility] [place] 11/23/21 Progressive pigmentary dermatosis of Schamberg [...] of coronary artery disease status post inferior [place] in 2003. He continues on cardioprotective medical [...] Encounters Date Type Department Care Team Description 05/04/2025 Refill [facility] [address] [place] [address] Davidson Quinonez MD from Last 3 Months Immunizations Immunization Administration Dates Next Due Influenza Split High [...] Care Team (Late st Contact Info) Description 07/20/2025 Orders Only [facility] [address] [place] [address] Davidson Quinonez MD [address] [phone] Stage 3b chronic kidney disease (HCC); Renal osteodystrophy; 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HCC) 08/26/2025 2:00 PM EDT Office Visit [facility] [address] [place] [phone] Davidson Quinonez MD [address] [phone] Health Maintenance Due Date Last Done Comments Diabetes: Ophthalmology Exam 08/04/2023 Diabetes: Pedal Pulse Checked 08/04/2023 Diabetes: Sensory Foot Exam 08/04/2023 Diabetes: Visual Foot Exam 08/04/2023 Diabetes: Hemoglobin A1C 04/16/2025 025, 10/09/2024, 01/17/2024 Influenza Vaccine (#1) 2025 2, 09/28/2021, 08/05/2020, Additional history exists Pneumococcal Vaccine: 50+ Years Completed 10/06/2021, 04/08/2015, 11/16/2007 Hepatitis B Vaccine Aged Out No longe r eligible based on patient's age to complete this topic Insurance [facility] ([id number]) [facility] ([id number]) Care Teams Wealth Management Advisor Relationship Specialty Start Date End Date Moris Machado MD [address] [place] [id number] PCP - General Internal Medicine 04/26/23
--- OUTSIDE RECORDS SUMMARY | 2025-06-26 11:37 | XMS_ITS | Patient Health Record ---
Author Organization [facility] Address [address] [place] [address] Care Team Providers Care Tannery Gummer Name Role Phone Name Ángel NIX Primary Care Provider Reji Cobian Jr Unavailable [phone] Reason For Referral No Information Medications Medication SIG (Take, Route, Frequency, Duration) Notes Start Date End Date Status Losartan Potassium 100mg Active Crestor 10mg Active Aspir-81 81mg Active Leflunomide 10mg Act mira Folic Acid 1mg Activ e hydroCHLOROthiazide 25mg Active Colyte with Flavor Packs 240 GM As directed Orally Over the specified time. for 1 day(s) 05/23/2013 11/28/2024 Active Metoprolol & Diet Manage Pro d 50mg Active Methotrexate 2.5mg A ctive Omeprazole 40mg 11/28/2024 11/28/2024 Ac tive Warfarin Sodium 5mg Active amLODIPine Besylate 5mg Active Social History Tobacco Use: Social History Observation Description Date Details (start date - stop date) Former Smoker NA - NA Tobacco Use/Smoking Question Answer Notes Patient is a former smoker How long has it been since you last smoked? 5-10 years Alcohol Screen Question Answer Notes Did you have a drink containing alcohol in the p ast year? No Points 0 Interpretation Negative Problems Problem Type SNOMED Code ICD Code Onset Dates Problem Status W/U Status Risk Notes Problem Esophageal reflux (458045988) Esophageal reflux (530.81) Active confirmed Problem Colon cancer screening (349685266) Colon cancer screening (V76.51) Active confirmed Problem Long-term current use of aspirin (71125804316081 3) Aspirin long-term use (V58.66) Active confirmed Plan Of Treatment Future Test Test Name Order Date COLONOSCOPY 05/23/2013 Insurance Providers Payer Name Payer Address Payer Phone Subscriber Number Group Number Insured Name Patient Relationship to Insured Coverage Start Date Coverage End Date MEDICARE OF [place] [address] [place] [id number] [phone] [id number] JAMEE SHAVER Self - patient is the insured MEDICAID OF [facility] [address] [place] [address] [id number] JAMEE SHAVER Self - patient is the insured Medical (General) History Medical History History ICD Code colonoscopy 10-17-2009 colon polyps atrial fibrillation coronary disease with a history of PR eleveated cholesterol hypertension degenerative joint disease Denies DM,CVA,Lung disease,renal disease
== END 2025-06-26 11:34 | disposition home or self-care (01) ==
LOC: HO.HPS 10:39
PROVIDERS: PCP Internal Medicine; Visit Provider Hospitalist
DX: J44.1 Chronic obstructive pulmonary disease with (acute) exacerbation (principal); J96.11 Chronic respiratory failure with hypoxia; I27.20 Pulmonary hypertension, unspecified; J84.9 Interstitial pulmonary disease, unspecified; J43.9 Emphysema, unspecified; J84.10 Pulmonary fibrosis, unspecified; R91.1 Solitary pulmonary nodule
CPT/HCPCS: 99215; G2211

== ENCOUNTER → 2025-06-26 10:38 | Outpatient (BNVA) | payer OTHER, SELFPAY | PROVIDERS: PCP Internal Medicine; Visit Provider Hospitalist | DX: J44.1 Chronic obstructive pulmonary disease with (acute) exacerbation (principal); J96.11 Chronic respiratory failure with hypoxia; I27.20 Pulmonary hypertension, unspecified; J84.9 Interstitial pulmonary disease, unspecified; J43.9 Emphysema, unspecified; J84.10 Pulmonary fibrosis, unspecified; R91.1 Solitary pulmonary nodule | CPT/HCPCS: 99212 ==

== ENCOUNTER → 2025-08-08 23:59 | Outpatient (BNV) | payer OTHER, SELFPAY ==
--- NOTE | 2025-08-20 18:53 | MHC.OFFVIS ---
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 failure with preserved ejection fraction IPF (idiopathic pulmonary fibrosis) COPD (chronic obstructive pulmonary disease) Reactive airway disease Pulmonary hypertension Chronic respiratory failure CHF (congestive heart failure) ILD (interstitial lung disease) Acute exacerbation of CHF (congestive heart failure) SVT (supraventricular tachycardia) CHF exacerbation Chronic anticoagulation Atrial fibrillation Chronic hypoxemic respiratory failure Hypertension Rheumatoid arthritis Lymphadenopathy Surgical History Hx of colonoscopy Social History Household Members: Spouse and Children Housing: House Do you presently have visiting nurse or other home services: No Alcohol intake: former Comment: patient rings appropriately Patient Tobacco Use Status: Former Tobacco user Tobacco use type: Cigarette Years Smoked: 40 e-Cigarette/Vaping Use: Former Use Second Hand Smoke Exposure: No Advance Directives Date on File: 06/27/23 service: No Current occupational status: retired Office Procedures Cardiac Device Check Cardiac Device Check Details: Monitoring period dates: 06/26/25- 08/08/25 Optimal PA pressure range: ADDY goal 45mmhg Procedure code: 31801 BACKGROUND: Tommy is implanted with the CardioMEMS PA Sensor.? I use this technology to monitor PA pressures on a weekly basis to ensure patients are within their optimal range to prevent decompensation.? SUMMARY:? I utilized the remote monitoring platform (viaForensics) to set optimal targets for pulmonary artery pressure thresholds as part of acute and chronic management of patient?s heart failure. During the period indicated above, I monitored the patient?s pulmonary artery pressures weekly via trend analysis and notification reports which provide alerts when patient?s PA pressures were outside of range to prompt immediate action in medication changes and communications.? The weekly reports are archived in the via[employer]nsics system which serve as a parallel record to document weekly PA pressures, medication changes, and clinical notes. I have reviewed readings on 06/28, 07/05, 07/12, 07/19, 07/26, 08/02, 08/08. . ADDY readings have ranged 47-55mmhg. No diuretic changes made. Seen in office and clinically stable. 15136 - Remote monitoring of wireless pulmonary artery pressure sensor Procedure code (CPT) selection complete Assessment & Plan Assessment & Plan (1) Presence of CardioMEMS HF system: Code(s): Z95.818 - Presence of other cardiac implants and grafts Category: Medical Plan: monthly report Coding Level of Care Code Procedure Only Diagnoses Presence of CardioMEMS HF system Z95.818 CPT Codes Cardiac Device Check - Cardiac Device 17: 09416 - Remote monitoring of wireless pulmonary artery pressure sensor ([id number])
== END ==
PROVIDERS: PCP Internal Medicine; Visit Provider Nurse Practitioner Family
DX: Z45.09 Encounter for adjustment and management of other cardiac device (principal)
CPT/HCPCS: 93264

== ENCOUNTER 2025-08-15 09:49 | Outpatient (AMB) | payer OTHER, SELFPAY ==
--- OUTSIDE RECORDS SUMMARY | 2005-10-28 09:30 | XMS_ITS | Continuity of Care Document ---
Author Organization [facility] Address [address] [place] [address] Phone Care Team Providers Care Armor Reconnaissance Vehicle Crewman Name Role Phone Unavailable Unavailable Unavailable Procedures [...] Location Reason(s) For Visit Diagnoses Date Provider [facility], [address] [facility] [place] [id number], [place] tel:[phone] [facility] No Information No Information Family History Family Member Type Diagnosis Age At Onset No Information Immunizations Vaccine Date Status Comments flu (split) (3 yrs or older) administered Source: New Immunization Record Payers Payer name Insurance type Covered democrat ID Authoriza tion(s) [facility] Medicaid [id number] Social History Type Description Quantity Date Captured [...]
--- OUTSIDE RECORDS SUMMARY | 2025-08-14 10:00 | XMS_ITS | Encounter Summary ---
Author Organization [facility] Address [address] [place] [address] Care Team Providers Care Outreach Representative Name Role Phone Moris Machado MD Primary Care Provider [phone] Encounter Details Date Type Department Care Team (Latest Contact Info) Description 08/14/2025 10:00 AM EDT Anticoagulation - Warfarin [facility] [address] [facility] [place] [phone] Atrial fibrillation, unspecified type (CMS/HCC V24, CMS/HCC V28) (Primary Dx); intermediate (current) use of anticoagulants Social History Tobacco Use Types Packs/Day Years Used Date Smoking Tobacco: Former Cigarettes 1 11 0 11/28/1991 - 11/28/2002 Smokeless Tobacco: Never Alcohol Use Standard Drinks/Week Comments No 0 (1 standard drink = 0.6 oz pur e alcohol) Housing Instability Answer Date Recorde d Are you worried that in the next 2 months you may not have stable housing? No 02/22/2025 Food Access & Nutrition Answer Date Rec orded Do you have access to a vari ety of food including fruits and vegetables? No 02/22/2025 Health Literacy Answer Date Recorded How often do you need to hav e someone help you when you read instructions, pamphlets, or other written material from your doctor or pharmacy? Never 02/22/2025 Caregiver: How often do you need to have someone help you when you read instructions, pamphlets, or other written material from your doctor or pharmacy? Not on file 02/22/2025 Financial Risk Answer Date Recorded How hard is it for you to pa y for the very basics like food, housing, medical care, and air conditioning / heating? Not very hard 02/22/2025 Transportation Answer Date Recorded Has the lack of transportati on kept you from meetings, work, or from getting things needed for daily living? No Has the lack of transportati on kept you from medical appointments or from getting medications? No 02/22/2025 Social Isolation Answer Date Recorded How often do you feel lonely or isolated from th ose around you? Never 02/22/2025 Food Risk Answer Date Recorded Within the past 12 months we worried whether our food would run out before we got money to buy more. Never true 02/22/2025 Within the past 12 months th e food we bought just didn't last and we didn't have money to get more. Never true 02/22/2025 Dependent Care Answer Date Recorded Do you need help finding or paying for care for your loved ones. For example, child care team lead or elderly care for an older adult? No 02/22/2025 Education Answer Date Recorded Do you think completing more education or training, like finishing a GED, going to college, or learning a trade, would be helpful for you? No 02/22/2025 Employment and Income Answer Date Recor ded During the last four weeks, have you been actively looking for work? No 02/22/2025 Living Situation Answer Date Recorded What is your living situation? 0 02/22/2025 Interpersonal Safety Answer Date Record ed Physical Abuse 02/22/2025 Verbal Abuse 02/22/2025 Sex and Gender Information Value Date Recorded Sex Assigned at Male 12/11/2024 3:28 PM EST Legal Sex Male 5:02 AM EST Gender Identity Male 12/11/2024 3:28 PM EST Sexual Orientation Straight 12/11/2024 3: 28 PM EST documented as of this encounter Functional Status * Are you deaf or do you have serious difficulty hearing? Answer Date of Assessment Author No 02/21/2025 6:13 AM Viky Benavides RN * Are you blind or do you have serious difficulty seeing, even when wearing glasses? Answer Date of Assessment Author No 02/21/2025 6:13 AM Viky Benavides RN * Do you have serious difficulty walking or climbing stairs? Answer Date of Assessment Author No 02/21/2025 6:13 AM EDT Viky De La Garza RN * Do you have serious difficulty dressing or bathing? Answer Date of Assessment Author No 02/21/2025 6:13 AM EDT Viky De La Garza RN * Because of a physical, mental, or emotional condition, do you have serious difficulty doing errandsalone such as visiting the doctor? Answer Date of Assessment Author No 02/21/2025 6:13 AM EDT Viky De La Garza RN documented as of this encounter Mental Status * Because of a physical, mental, or emotional condition, do you have serious difficulty concentrating, remembering, or making decisions? (5 years old or older) Answer Entry Date Author No 02/21/2025 6:13 AM EDT Viky De La Garza RN documented in this encounter Plan of Treatment Upcoming Encounters Date Type Department Care Team (Late st Contact Info) Description 08/27/2025 1:00 PM EDT Office Visit Adult Medicine [facility] [address] [place] [address] Thao Ramirez NP [address] [place] [address] 09/12/2025 1:00 PM EDT [facility] - [facility] [address] documented as of this encounter Procedures Procedure Name Priority Date/Time Associated Diagnosis Comments POC PROTIME INR BLOOD Routine 08/14/2025 10:07 AM EDT Atrial fibrillation, unspecified type (CMS/HCC V24, CMS/HCC V28) 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 documented in this encounter Results * POC Protime INR Blood (08/14/2025 10:07 AM EDT) Lot Number INR POC 2.6 Prothrombin Time POC Exp Date Blood 08/14/2025 10:0 7 AM EDT Anjel Man MD POINT OF CARE TEST ENTER/EDIT ORDERABLES Final Result documented in this encounter Visit Diagnoses Diagnosis Atrial fibrillation, unspecified type ([facility] V24, [facility] V28)- 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
--- NOTE | 2025-08-15 09:57 | A.OFFVIS_ITS ---
Vital Signs 08/15/25 09:59 Height 5 ft 10 in Weight 182 lb 15.739 oz BMI 26.3 BP 130/64 Blood Pressure Location Rt brachial Position Sitting Pulse 62 Pulse Source Pulse Oximeter Intake Visit Reasons: 6m follow up Intake Note: 6mth f/up Corporate Law Assistant Required: No Corporate Law Assistant Services: Corporate Law Assistant Offered & Declined Accompanied by: Spouse Allergies No Known Allergies Allergy (Unknown, Verified 06/26/25 10:51) NOT APPLICABLE Medication List - Last Reconciled 08/15/25 by ORIN Greer adalimumab (Humira(CF) Pen) 40 mg subcut Q2W albuterol sulfate 2.5 mg (3 mL) inhalation BID albuterol sulfate 90 mcg/actuation (Ventolin HFA) 2 puffs inhalation Q4H PRN 30 days bumetanide 1 mg PO BID cholecalciferol (vitamin D3) 50 mcg PO DAILY diltiazem HCl CD 240 mg See Protocol PO DAILY empagliflozin (Jardiance) 10 mg PO DAILY fluticasone furoate-vilanterol 200-25 mcg/dose (Breo Ellipta) 1 inh inhalation DAILY 30 days folic acid 400 mcg PO DAILY insulin glargine (Lantus Solostar U-100 Insulin) 20 units subcut BEDTIME insulin lispro (Humalog KwikPen (U-100) Insulin) 3 units subcut ONCE metoprolol tartrate 50 mg PO BID nebulizers As directed nitroglycerin 0.4 mg sublingual Q5M PRN Oxygen Home Use As directed pantoprazole 40 mg PO DAILY@0630 prednisone 20 mg (2 x 10 mg) PO DAILY 30 days rosuvastatin 1 tab PO BEDTIME sacubitril-valsartan 49-51 mg (Entresto) 1 tab See Protocol PO BID sildenafil (pulm.hypertension) (Revatio) 40 mg (2 x 20 mg) PO TID 30 days timolol maleate 0.5% 1 drp ophthalmic (eye) DAILY tramadol 1 tab PO BID PRN warfarin 5 mg PO DAILY@1800 HPI HPI 6m follow up: Details: Tommy is a 80-year-old male with past medical history of hypertension, advanced COPD, oxygen dependent, heart failure with preserved EF, SVT, paroxysmal AFib, CardioMEMS device in place who presents for follow-up. Today he reports he has been doing well since his last visit. He is currently pleased with how he is feeling. His breathing is under control. He wears oxygen at 4 L most of the time and will increase it to 6 L when he does physical activity. He sleeps with 1 pillow. He denies PND, orthopnea or edema. No chest discomfort at rest or with activity. No heart palpitations, lightheadedness, presyncope, syncope, falls. He has been doing chair exercises at home and trying to increase his walking. He tells me his CardioMEMS pillow is not working. Taking all meds as directed. is present. [facility] Medical History COPD exacerbation Pulmonary nodule 1 cm or greater in diameter Combined pulmonary fibrosis and emphysema (CPFE) (HFpEF) heart failure with preserved ejection fraction IPF (idiopathic pulmonary fibrosis) COPD (chronic obstructive pulmonary disease) Reactive airway disease Pulmonary hypertension Chronic respiratory failure CHF (congestive heart failure) ILD (interstitial lung disease) Acute exacerbation of CHF (congestive heart failure) SVT (supraventricular tachycardia) CHF exacerbation Chronic anticoagulation Atrial fibrillation Chronic hypoxemic respiratory failure Hypertension Rheumatoid arthritis Lymphadenopathy Surgical History Hx of colonoscopy Social History Household Members: Spouse and Children Housing: House Do you presently have visiting nurse or other home services: No Alcohol intake: former Comment: patient rings appropriately Patient Tobacco Use Status: Former Tobacco user Tobacco use type: Cigarette Years Smoked: 40 e-Cigarette/Vaping Use: Former Use Second Hand Smoke Exposure: No Advance Directives Date on File: 06/27/23 service: No Current occupational status: retired Review of Systems Const All systems reviewed & are unremarkable except as noted in HPI and below Denies chills, Denies fatigue, Denies fever(s), Denies frequent falls, Denies weakness, Denies weight gain and Denies weight loss ENT Denies dizziness Card Denies chest pain, Denies leg edema, Denies lightheadedness, Denies palpitations, Denies dyspnea and Denies dyspnea on exertion Resp Denies cough, Denies dyspnea and Denies dyspnea on exertion GI Denies hematochezia Musc Denies abnormal gait, Denies muscle weakness, Denies numbness, Denies radiating pain into limb and Denies tingling Neuro Denies abnormal gait, Denies dizziness, Denies frequent falls, Denies numbness, Denies tingling and Denies weakness Endo Denies fatigue and Denies palpitations Physical Exam Vital Signs: Last Vital Signs Pulse 62 08/15/25 09:59 BP 130/64 08/15/25 09:59 BMI result Body Mass Index 26.3 Const General: cooperative, healthy appearing, comfortable and no acute distress Orientation/consciousness: patient oriented x3 Neck Neck: Yes normal visual inspection and Yes no JVD Resp Other: diminished lung sounds, wearing O2 4 liters Effort & Inspection: normal respiratory effort Auscultation: clear to auscultation bilaterally, no rales, no rhonchi and no wheezes Cardio Jugular venous distension: no JVD Rate: regular rate Rhythm: regular rhythm Heart sounds: S1 normal heart sound present, S2 normal heart sound present, no murmurs and no rubs Neuro General: patient oriented x3 Extrem General: Yes normal to inspection, No no pedal edema and No calf tenderness Psych Appearance: grossly normal Mental Status: mental status grossly normal Speech and movement: Normal speech and movement present Assessment & Plan Assessment & Plan (1) (HFpEF) heart failure with preserved ejection fraction: Code(s): I50.30 - Unspecified diastolic (congestive) heart failure Category: Medical Plan: History of heart failure with preserved EF. Known to have at least moderate pulmonary hypertension. CardioMEMS device in place to help with heart failure management. PA pressures are being monitored however recently he has been less compliant with this. He follows closely with pulmonology. No recent change in diuretic therapy, currently on Bumex 1 mg b.i.d.. He is also on Jardiance, Entresto, metoprolol for heart failure management. Last echocardiogram in our system done on 11/30/2023 showing EF 60-65%, severe increase in the RV size, severe decrease in the RV systolic function, mild TR, severe pulmonary hypertension. He remains on sildenafil as ordered by his noodle press operator for the treatment of pulmonary hypertension. He does not appear fluid overloaded on exam today. Will have him continue meds without change. Continue O2 use. Will reach out to [employer] regarding new CardioMEMS pillow. Then reminded of doing CardioMEMS readings at least 3 times weekly. Signs and symptoms of heart failure reviewed. Cardiology office visit 6 months, sooner if needed. (2) Atrial fibrillation: Code(s): I48.91 - Unspecified atrial fibrillation Category: Medical Plan: History of paroxysmal atrial fibrillation. Last EKG showing sinus rhythm with PVCs, right bundle branch block, rate 81. Pulse is regular on examination today. He is on both diltiazem and metoprolol XL for heart rate and rhythm control. He is on Coumadin for anticoagulation and says his home nurse checks his INRs readings and reports them to his PCP. No bleeding issues reported. No med changes made. (3) SVT (supraventricular tachycardia): Code(s): I47.1 - Supraventricular tachycardia Category: Medical Plan: Prior history of SVT. No recent events. Continues on metoprolol and diltiazem (4) Pulmonary hypertension: Comment: WHO group 1 Code(s): I27.20 - Pulmonary hypertension, unspecified Category: Medical Plan: As above. Follows with pulmonology Plan I discussed with the patient the importance of monitoring for signs of fluid buildup, such as leg swelling or worsening breathing, which could indicate heart failure exacerbation. We agreed to continue Bumex as it is effective in preventing fluid overload, and I will order a new CardioMems device to monitor his cardiac status. Follow-up is scheduled for six months, with the option to come sooner if problems arise. Patient Instructions: - Continue oxygen therapy as prescribed. - Engage in regular exercise to maintain mobility. - Monitor for signs of fluid buildup, such as leg swelling or worsening breathing. - Take Bumex as prescribed to prevent fluid overload. - Follow up in six months or sooner if problems arise. Patient was informed and verbally consented to the use of an ambient scribe for clinic note documentation during this visit. Visit time spent on chart review, interview, assessment, orders, documentation. Coding Level of Care Code Est Pt Level 4 (92217) Complex EM visit Add On G2211 Diagnoses (HFpEF) heart failure with preserved ejection fraction I50.30 Atrial fibrillation I48.91 SVT (supraventricular tachycardia) I47.1 Pulmonary hypertension I27.20 Time Spent (min) 28
[2025-08-15 09:59] VITALS: BP 130/64; PULSE 62; BMI 26.3
--- OUTSIDE RECORDS SUMMARY | 2025-08-15 11:26 | XMS_ITS | Encounter Summary ---
Author Organization [facility] Address [address] [place] [address] Care Team Providers Care Negotiator Name Role Phone Moris Machado MD Primary Care Provider [phone] Encounter Details Date Type Department Care Team ([facility] Contact Info) Description 01/23/2025 Billing Patient Not Present Adult Medicine [address] [phone] Moris Machado MD [address] [place] [address] Social History Tobacco Use Types Packs/Day Years [...] Department Care Team (Late Contact Info) Description 08/27/2025 1:00 PM EDT Office Visit Adult Medicine [address] [phone] Thao Ramirez, DIRECTOR [employer] [address] [place] [address] 09/12/2025 1:00 PM EDT Anticoagulation - Warfarin Visit Coumadin Clinic - [address] [address] documented as of this encounter Visit Diagnoses [...] documented as of this encounter Care Teams Negotiator Relationship Specialty Start Date End Date Moris Machado MD [address] [place] [address] PCP - General Internal Medicine 10/09/24 documented as of this encounter
--- OUTSIDE RECORDS SUMMARY | 2025-08-15 11:26 | XMS_ITS | Encounter Summary ---
Author Organization [facility] Address [address] [place] [address] Care Team Providers Care Wire Bound Box Machine Helper Name Role Phone Moris Machado MD Primary Care Provider [phone] Encounter Details Date Type Department Care Team ([facility] Contact Info) Description 02/07/2025 Billing Patient Not Present Adult Medicine [address] [phone] Moris Machado MD [address] [place] [address] Social History Tobacco Use Types Packs/Day Years [...] 1:00 PM EDT Office Visit Adult Medicine [address] [phone] Thao Ramirez, MAGAZINE JOURNALIST [address] [place] [address] 09/12/2025 1:00 PM EDT Anticoagulation - Warfarin Visit Coumadin Clinic - [address] [address] documented as of this encounter Visit Diagnoses [...] documented as of this encounter Care Teams Wire Bound Box Machine Helper Relationship Specialty Start Date End Date Moris Machado MD [address] [place] [address] PCP - General Internal Medicine 10/09/24 documented as of this encounter
--- OUTSIDE RECORDS SUMMARY | 2025-08-15 11:26 | XMS_ITS | Encounter Summary ---
Author Organization [facility] Address [address] [place] [address] Care Team Providers Care Bias Machine Operator Helper Name Role Phone Moris Machado MD Primary Care Provider [phone] Encounter Details Date Type Department Care Team ([facility] Contact Info) Description 02/07/2025 Billing Patient Not Present Adult Medicine [address] [phone] Moris Machado MD [address] [place] [address] Social History Tobacco Use Types Packs/Day Years [...] 1:00 PM EDT Office Visit Adult Medicine [address] [phone] Thao Ramirez, ELECTRICIAN DECK [address] [place] [address] 09/12/2025 1:00 PM EDT Anticoagulation - Warfarin Visit Coumadin Clinic - [address] [address] documented as of this encounter Visit Diagnoses [...] documented as of this encounter Care Teams Bias Machine Operator Helper Relationship Specialty Start Date End Date Moris Machado MD [address] [place] [address] PCP - General Internal Medicine 10/09/24 documented as of this encounter
--- OUTSIDE RECORDS SUMMARY | 2025-08-15 11:26 | XMS_ITS | Encounter Summary ---
Author Organization [facility] Address [address] [place] [address] Care Team Providers Care Translator And Interpreter Name Role Phone Moris Machado MD Primary Care Provider Encounter Details Date Type Department Care Team ([facility] Contact Info) Description 01/25/2025 Billing Patient Not Present Adult Medicine [address] [phone] Moris Machado MD [address] [place] [address] Social History Tobacco Use Types Packs/Day Years [...] 1:00 PM EDT Office Visit Adult Medicine [address] [phone] Thao Ramirez, UI ENGINEER [address] [place] [address] 09/12/2025 1:00 PM EDT Anticoagulation - Warfarin Visit Coumadin Clinic - [address] [phone] documented as of this encounter Visit Diagnoses [...] documented as of this encounter Care Teams Translator And Interpreter Relationship Specialty Start Date End Date Moris Machado MD [address] [place] [phone] PCP - General Internal Medicine 10/09/24 documented as of this encounter
--- OUTSIDE RECORDS SUMMARY | 2025-08-15 11:26 | XMS_ITS | Clinical Summary ---
Author Organization [address] Address [address] [place] [phone] Phone Care Team Providers Care Dx Board Operator Name Role Phone Moris Machado MD Primary Care Provider [phone] Allergies No known active allergies Medications albuterol 2.5 mg /3 mL (0.083 %) nebulizer solution USE 1 VIAL VIA NEBULIZER EVERY 4 HOURS NEEDED FOR WHEEZING 360 mL 2 10/15/20 24 2024 Active adalimumab (Humira,CF, Pen) 40 mg/0.4 mL pen Inject 0.4 mL (40 mg total) under the skin every 14 (fourteen) days. 10/23/20 21 Active calcitrioL (ROCALTROL) 0.25 mcg capsule Take 1 capsule (0.25 mcg total) by mouth every other day. 02/27/20 24 Active cholecalcifero l (VITAMIN D-3) 50 mcg (2,000 unit) tablet Take 1 tablet (2,000 Units total) by mouth 1 (one) time each day. 06/11/20 24 Active dilTIAZem CD (CARDIZEM CD) 240 mg 24 hr capsule Take 1 capsule (240 mg total) by mouth 1 (one) time each day. 07/17/20 24 Active ipratropium-al buteroL (Combivent Respimat) 20-100 mcg/actuation inhaler Inhale 1 Puff into the lungs every 6 hours as needed (wheezing) for up to 30 days. 05/26/20 23 Active sildenafil (REVATIO) 20 mg tablet Take [...] change every 14 days 2 EA 11 01/16/20 25 Active folic acid (FOLVITE) 400 mcg tablet TAKE 1 TABLET BY MOUTH DAILY 90 tablet 1 03/18/20 25 Active metoprolol tartrate (LOPRESSOR) 50 mg tablet Take 1 tablet (50 mg total) by mouth 2 (two) times a day. 180 tablet 1 03/18/20 25 2024 Active insulin glargine (Lantus Solostar U-100 Insulin) 100 unit/mL (3 mL) injection pen INJECT 30 UNITS SUBCUTANEOUS EVERY EVENING 15 mL 03/21/20 Active blood-glucose sensor (FreeStyle Martha 3 Plus Sensor) deviceIndicati ons:Type 2 diabetes mellitus with stage 3 chronic kidney disease, unspecified whether terminal gauger supervisor insulin use, unspecified whether stage 3a or 3b CKD ([facility] V24, [facility] V28) Change sensor every 15 days 2 each 06/25/20 Active blood-glucose, account analyst,cont (FreeStyle Martha 3 [place]) miscIndication s:Type 2 diabetes mellitus with stage 3 chronic kidney disease, unspecified whether terminal gauger supervisor insulin use, unspecified whether stage 3a or 3b CKD ([facility] V24, [facility] V28) Use daily to check bs 1 each 06/25/20 25 Active insulin lispro (HumaLOG KwikPen) 100 unit/mL injection pen Inject 3 units with lunch sc 15 mL 06/25/20 Active Breo Ellipta 200-25 mcg/dose inhaler Inhale 1 puff by mouth 1 (one) time each day. 3 each 07/12/20 25 Active traMADoL (ULTRAM) 50 mg tablet Take 1 tablet (50 mg total) by mouth 2 (two) times a day. Max Daily Amount: 100 mg 56 tablet 08/07/20 25 Active rosuvastatin (CRESTOR) 10 mg tablet Take 1 tablet (10 mg total) by mouth 1 (one) time each day. 90 tablet 08/09/20 25 Active Entresto 49-51 mg per tablet Take 1 tablet by mouth 2 (two) times a day. 180 tablet 08/08/20 25 Active Entresto 49-51 mg per tablet TAKE 1 TABLET BY MOUTH TWICE DAILY 180 tablet 1 10/08/20 24 2024 Discontinued(R eorder) traMADoL (ULTRAM) 50 mg tablet Take 1 tablet (50 mg total) by mouth 2 (two) times a day if needed for severe pain. Max Daily Amount: 100 mg 56 tablet 06/03/20 25 2024 Discontinued rosuvastatin (CRESTOR) 10 mg tablet Take 1 tablet (10 mg total) by mouth 1 (one) time each day. 90 tablet 07/12/20 25 2024 Discontinued(R eorder) traMADoL (ULTRAM) 50 mg tablet Take 1 tablet (50 mg total) by mouth 2 (two) times a day. Max Daily Amount: 100 mg 56 tablet 08/05/20 25 2024 Discontinued Active Problems Problem Noted Date Diagnosed Date Acute on chronic hypoxic res piratory failure ([facility] V24, [facility] V28) 02/21/2025 Atrial fibrillation ([facility] V24, [facility] V28) 1 12/26/2023 detention (current) use of anticoagulants 2023 Diabetes mellitus due to und erlying condition, uncontrolled, with hyperglycemia ([facility] V24, [facility] V28) 11/12/2023 Secondary diabetes mellitus ([facility] V24, [facility]/ [facility] V28) 11/12/2023 (HFpEF) heart failure with p reserved ejection fraction ([facility] V24, [facility] V28) 08/11/2023 Overview (10/19/2024): Last Assessment & Plan: [...] Plan (12/10/2024 3:56 PM EST): Chronic hypoxemic respirator y failure ([facility] V24, [facility] V28) 08/11/2023 Assessment & Plan (12/10/2024 3:56 PM EST): SOB (shortness of breath) 08/11/2023 SVT (supraventricular tachycardia) ([facility] V24) 08/11/2023 Overview (10/19/2024): Last Assessment & Plan: [...] osteodystrophy 08/04/2023 Stage 3b chronic kidney disease ([facility] V24, [facility] V28) 08/04/2023 Type 2 diabetes mellitus wit h diabetic chronic kidney disease ([facility] V24, [facility] V28) 08/04/2023 Heart failure ([facility] V24, [facility] V28) 023 Pulmonary HTN ([facility] V24, [facility] V28) 023 Overview (10/19/2024): Last Assessment & Plan: Patient has a history of pulmonary hypertension likely in the setting of COPD and atrial fibrillation. EKG today showed normal sinus rhythm with right bundle branch block. He follows with pulmonology Dr. Bazzi given his history of interstitial lung disease and continues on oxygen therapy. 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 We will update an echocardiogram to reevaluate his right ventricular function. Influenza 03/05/2022 Overview (10/19/2024): D/C'd from [facility] on 11/23/21 Lymphadenopathy 03/05/2022 Overview (10/19/2024): D/C'd from [facility] on 11/23/21 ILD (interstitial lung disease) ([facility] V24, [facility] V28) 11/30/2021 Overview (10/19/2024): D/C'd from [facility] on 11/23/21 Assessment & Plan (12/10/2024 3:56 PM EST): 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 Old VT (myocardial infarction) 06/12/2015 Glaucoma 06/05/2012 A-fib (CMS/HCC V24, CMS/HCC V28) 03/16/2012 Overview (10/19/2024): Last Assessment & Plan: Patient has a history of atrial fibrillation on chronic anticoagulation with warfarin. He is a [id number] score of 4 and continues on anticoagulation as prescribed. He is also on metoprolol for rate control. His heart rate is well controlled today. He denies any excessive bruising or bleeding. We will continue current therapies. CAD (coronary artery disease) 03/16/2012 Overview (10/19/2024): Last Assessment & Plan: The patient has a history of coronary artery disease status post inferior VT in 2003. He continues on cardioprotective medical [...] No changes to medical therapies. Seropositive rheumatoid arth ritis ([facility] V24, [facility] V28) 03/16/2012 Overview (10/19/2024): RF, JENNIFER positive. Onset [...] Date Diagnosed Date Resolved Date COPD exacerbation ([facility] V24, [facility] V28) 2 11/23/2024 Overview (10/19/2024): Acute D/C'd from [facility] on 11/23/21 Encounters Date Type Department Care Team Description 08/14/2025 10:00 AM EDT Anticoagulation - Warfarin Visit [facility] Clinic - [address] [phone] Atrial fibrillation, unspecified type ([facility] V24, [facility] V28) (Primary Dx); terminal gauger supervisor (current) use of anticoagulants 07/17/2025 10:30 AM EDT Anticoagulation - Warfarin Visit Coumadin Clinic - [address] [phone] Atrial fibrillation, unspecified type ([facility] V24, [facility] V28) (Primary Dx); terminal gauger supervisor (current) use of anticoagulants 06/25/2025 10:45 AM EDT Office Visit Endocrinology [address] [phone] Nicole Samson PA Type 2 diabetes mellitus with stage 3 chronic kidney disease, unspecified whether terminal gauger supervisor insulin use, unspecified whether stage 3a or 3b CKD ([facility] V24, [facility] V28) (Primary Dx); Secondary hypertension; Stage 3b chronic kidney disease (CMS/HCC V24, CMS/HCC V28) 06/24/2025 10:30 AM EDT Anticoagulation - Warfarin Visit Coumadin Clinic - [address] [phone] Atrial fibrillation, unspecified type (CMS/HCC V24, CMS/HCC V28) (Primary Dx); terminal gauger supervisor (current) use of anticoagulants 06/12/2025 10:45 AM EDT Anticoagulation - Warfarin Visit Coumadin Clinic - [address] [phone] Atrial fibrillation, unspecified type (CMS/HCC V24, CMS/HCC V28) (Primary Dx); detention (current) use of anticoagulants 06/05/2025 10:00 AM EDT Anticoagulation - Warfarin Visit Coumadin [address] [phone] Atrial fibrillation, unspecified type (CMS/HCC V24, CMS/HCC V28) (Primary Dx); detention (current) use of anticoagulants 05/29/2025 10:00 AM EDT Anticoagulation - Warfarin Visit Coumadin [address] [phone] Atrial fibrillation, unspecified type (CMS/HCC V24, CMS/HCC V28) (Primary Dx); terminal gauger supervisor (current) use of anticoagulants 05/22/2025 11:00 AM EDT Anticoagulation - Warfarin Visit [facility]madin Clinic - [address] [phone] Atrial fibrillation, unspecified type (CMS/HCC V24, CMS/HCC V28) (Primary Dx); terminal gauger supervisor (current) use of anticoagulants 05/17/2025 Billing Patient Not Present Adult Medicine [address] [phone] Moris Machado MD 05/16/2025 Telephone Adult Medicine [address] [phone] Moris Machado MD 05/15/2025 9:45 AM EDT Anticoagulation - Warfarin [facility] [address] [facility] [place] [phone] Atrial fibrillation, unspecified type ([facility] V24, [facility] V28) (Primary Dx); detention (current) use of anticoagulants from Last 3 Months Immunizations Name Administration [...] sigmoid adenoma and tics COLONOSCOPY 05/02/14 PROCEDURE: DE COLONOSCOPY STOMA W/RMVL BART POLYP/OTH LES SNARE; COMMENT: adenoma and tics; repeat in 5 yrs Medical History Medical History Date Comments A-fib ([facility] V24, [facility] V28) 03/16/2012 DX:A-fib ([facility]) CAD (coronary artery disease) 03/16/2012 DX :CAD (coronary artery disease) High cholesterol 03/16/2012 DX:High cholest anh HTN (hypertension) 03/16/2012 DX:HTN (hyper tension) Historical Medical DX 04/20/2012 DX:PPD neg ative RA (rheumatoid arthritis) ([place] V24, [facility] V28) 03/16/2012 DX:RA (rheumatoid arthritis) ([facility]) Glaucoma 06/05/2012 DX:Glaucoma 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 DX:Schamberg 's disease ILD (interstitial lung disea se) ([facility] V24, [facility] V28) 11/30/2021 DX:ILD (interstitial lung d isease) ([facility]) Asthma DX:Asthma Family History Medical History Relation [...] for your loved ones. For example, child and adolescent psychologist or elderly care for an older adult? [...] Sign Reading Time Taken Comments Blood Pressure 114/56 06/25/2025 10:50 AM EDT Pulse 65 06/25/2025 10:50 AM EDT Temperature 36 C (96.8 F) 06/25/2025 10:50 AM EDT Respiratory Rate 19 02/26/2025 3:57 PM EDT Oxygen Saturation 91% 03/21/2025 10: 22 AM EDT o2 - 4-5 litres Inhaled Oxygen Concentration - - Weight 83.9 kg (185 lb) 06/25/2025 10:5 0 AM EDT Height 180.3 cm (5' 11 ) 06/25/2025 10: 50 AM EDT Body Mass Index 25.8 06/25/2025 10:50 AM EDT Plan of Treatment Upcoming Encounters Date Type Department Care Team (Late st Contact Info) Description 08/27/2025 1:00 PM EDT Office Visit Adult Medicine [facility] [address] [place] [phone] Thao Ramirez NP [address] [place] [address] 09/12/2025 1:00 PM EDT Anticoagulation - [facility] [address] [facility] [place] [address] Health Maintenance Due Date Last Done Comments Diabetes: Annual Foot Exam 1955 RSV Immunization Adult Patients (1 - 1-dose 75+ series) 2019 Colorectal Cancer Screening: Colonoscopy 11/06/2022 Diabetes: Annual Retina Eye Exam 02/16/2025 02/17/2024 COVID-19 Vaccine ( season) 2025 05/12/2022, 07/30/2021, 02/07/2021, Additional history exists Influenza Vaccine (#1) 2025 , 07/22/2023, 08/20/2022, Additional history exists Medicare Annual Wellness Visit 12/10/2025 12/10/2024 Diabetes: Blood Sugar Control Test (HGBA1C) 01/16/2026 07/16/2025, 01/17/2025, 10/09/2024, Additional history exists Social Influencers of Health Screening 02/22/2026 02/22/2025 Falls Risk Assessment 02/26/2026 02/26/2025 , 12/10/2024, 11/09/2023 Diabetes: Annual Urine Albumin-Creatinine Ratio (uACR) 07/16/2026 07/16/2025, 10/09/2024, 01/17/2024 Diabetes: Annual GFR (Glomerular Filtration Rate) 07/16/2026 07/16/2025, 02/25/2025, 02/24/2025, Additional history exists Hypertension/CHF/CAD Annual BMP Blood Test 07/16/2026 07/16/2025, 02/25/2025, 02/24/2025, Additional history exists DTaP,Tdap,and Td Vaccines (2 - Td or Tdap) 01/01/2030 01/01/2020 Cholesterol Screening (Lipid Panel) 07/16/2030 07/16/2025, 10/09/2024 Zoster Vaccines Completed 05/12/2019, 07/28/2018 Pneumococcal Vaccine: 50+ Years Completed 10/06/2021, 04/08/2015, 11/16/2007 Depression Screening Completed 12/10/2024, 12/08/19 24 HIB Vaccines Aged Out No longer eligi [...] age to complete this topic Meningococcal B Vaccine Aged Out No l onger eligible based on patient's age to complete [...] fibrillation, unspecified type (CMS/HCC V24, CMS/HCC V28) detention (current) use of anticoagulants POC PROTIME INR BLOOD Routine 07/17/2025 10:06 AM EDT Atrial fibrillation, unspecified type (CMS/HCC V24, CMS/HCC V28) terminal gauger supervisor (current) use of anticoagulants MICROALBUMIN CREATININE URINE RATIO Routine 07/16/2025 11:10 AM EDT Type 2 diabetes mellitus with chronic kidney disease, with long-term current use of insulin, unspecified CKD stage (CMS/HCC V24, CMS/HCC V28) LIPID PANEL WITH REFLEX TO DIRECT LDL Routine 07/16/2025 11:05 AM EDT Pure hypercholesterolemia COMPREHENSIVE METABOLIC PANEL Routine 07/16/2025 11:05 AM EDT Hypokalemia Primary hypertension Type 2 diabetes mellitus with chronic kidney disease, with long-term current use of insulin, unspecified CKD stage (CMS/HCC V24, CMS/HCC V28) Encounter for long-term (current) use of medications HEMOGLOBIN A1C Routine 07/16/2025 11:05 AM EDT Type 2 diabetes mellitus with chronic kidney disease, with long-term current use of insulin, unspecified CKD stage (CMS/HCC V24, CMS/HCC V28) POC PROTIME INR BLOOD Routine 06/24/2025 10:23 AM EDT Atrial fibrillation, unspecified type (CMS/HCC V24, CMS/HCC V28) terminal gauger supervisor (current) use of anticoagulants POC PROTIME INR BLOOD Routine 06/12/2025 10:26 AM EDT Atrial fibrillation, unspecified type (CMS/HCC V24, CMS/HCC V28) terminal gauger supervisor (current) use of anticoagulants POC PROTIME INR BLOOD Routine 06/05/2025 9:52 AM EDT Atrial fibrillation, unspecified type (CMS/HCC V24, CMS/HCC V28) detention (current) use of anticoagulants POC PROTIME INR BLOOD Routine 05/29/2025 9:55 AM EDT Atrial fibrillation, unspecified type (CMS/HCC V24, CMS/HCC V28) detention (current) use of anticoagulants POC PROTIME INR BLOOD Routine 05/22/2025 11:08 AM EDT Atrial fibrillation, unspecified type (CMS/HCC V24, CMS/HCC V28) detention (current) use of anticoagulants POC PROTIME INR BLOOD Routine 05/15/2025 9:34 AM EDT Atrial fibrillation, unspecified type (CMS/HCC V24, CMS/HCC V28) detention (current) use of anticoagulants DIABETES EYE EXAM Routine 02/17/2024 DEPRESSION SCREENING Routine 12/08/2023 FALLS RISK ASSESSMENT Routine 11/09/2023 from Last 3 Months or Most Recently Relevant to Health Maintenance Results * POC Protime INR Blood (08/14/2025 10:07 AM EDT) Only the most recent of8 resultswithin the time period is included. Lot Number INR POC 2.6 Prothrombin Time POC Exp Date Blood 08/14/2025 10:0 7 AM EDT Anjel Man MD POINT OF CARE TEST ENTER/EDIT ORDERABLES Final Result * (ABNORMAL) Microalbumin creatinine urine ratio (07/16/2025 11:10 AM EDT) Creatinine, Urine 17.0 mg/dL LAB CHEMISTRY METHOD 07/16/2025 4:12 PM EDT [facility] Microalb, Ur 112.0(H) 0.0 - 29.0 mg/L LAB CHEMISTRY METHOD 07/16/2025 4:12 PM EDT [facility] Microalb/Crea t Ratio 659(H) <30 mg/g creat LAB CHEMISTRY METHOD 07/16/2025 4:12 PM EDT [facility] Urine Urine specimen obtained by clean catch procedure / Unknown Non-blood Collection / Unknown 07/16/2025 11:10 AM EDT 07/16/2025 11:10 AM EDT Moris Machado MD LAB URINE ORDERABLES Final Resu lt [facility] [address] [place] [address], [place] [phone] * (ABNORMAL) Lipid panel with reflex to direct LDL (07/16/2025 11:05 AM EDT) Cholesterol 152 0 - 200 mg/dL LAB CHEMISTRY METHOD 07/16/2025 2:59 PM EDT [facility] Triglycerides 190(H) 0 - 150 mg/dL LAB CHEMISTRY METHOD 07/16/2025 2:59 PM EDT [facility] HDL 68 >=40 mg/dL LAB CHEMISTRY METHOD 07/16/2025 2:59 PM EDT [facility] LDL Calculated 46 0 - 100 mg/dL LAB CHEMISTRY METHOD 07/16/2025 2:59 PM EDT [facility] Comment:Estimated LDL Calcul ated using equation: Total cholesterol - HDL cholesterol - (Triglycerides/5) VLDL Cholesterol Oliverio 38 mg/dL LAB CHEMISTRY METHOD 07/16/2025 2:59 PM EDT [facility] Non HDL Chol. (LDL+VLDL) 84 <145 mg/dL LAB CHEMISTRY METHOD 07/16/2025 2:59 PM EDT [facility] Chol/HDL Ratio 2.2 0.0 - 4.4 LAB CHEMISTRY METHOD 07/16/2025 2:59 PM EDT [facility] Blood Venous blood specimen / Unknown Venipuncture / Unknown 07/16/2025 11:05 AM EDT 07/16/2025 11:05 AM EDT us Moris Machado MD LAB BLOOD ORDERABLES Final Resu lt [facility] [address] [place] [address], * (ABNORMAL) Hemoglobin A1c (07/16/2025 11:05 AM EDT) Hemoglobin A1C 8.9(H) <6.5 % LAB CHEMISTRY METHOD 07/16/2025 9:18 PM EDT [facility] Mean Bld Glu Estim. 209 mg/dL LAB CHEMISTRY METHOD 07/16/2025 9:18 PM EDT [facility] Blood Venous blood specimen / Unknown Venipuncture / Unknown 07/16/2025 11:05 AM EDT 07/16/2025 11:05 AM EDT us Nicole ROSALES LAB BLOOD ORDERABLES Final Result [facility] [address] [place] [address], * (ABNORMAL) Comprehensive metabolic panel (07/16/2025 11:05 AM EDT) Sodium 139 133 - 145 mmol/L LAB CHEMISTRY METHOD 07/16/2025 2:59 PM EDT [facility] Potassium 4.2 3.5 - 5.5 mmol/L LAB CHEMISTRY METHOD 07/16/2025 2:59 PM [facility] Chloride 102 96 - 110 mmol/L LAB CHEMISTRY METHOD 07/16/2025 2:59 PM [facility] CO2 27 21 - 32 mmol/L LAB CHEMISTRY METHOD 07/16/2025 2:59 PM [facility] Anion Gap 10 3 - 11 LAB CHEMISTRY METHOD 07/16/2025 2:59 PM [facility] Glucose 161(H) 70 - 100 mg/dL LAB CHEMISTRY METHOD 07/16/2025 2:59 PM [facility] BUN 51(H) 5 - 25 mg/dL LAB CHEMISTRY METHOD 07/16/2025 2:59 PM [facility] Creatinine 1.91(H) 0.70 - 1.30 mg/dL LAB CHEMISTRY METHOD 07/16/2025 2:59 PM T [facility] eGFR 35(L) >=60 mL/min/1. 73m2 LAB CHEMISTRY METHOD 07/16/2025 2:59 PM [facility] Comment:Calculation based on the Chronic Kidney Disease Epidemiology Collaboration (CKD-EPI) equation refit without adjustment for race. BUN/Creatinine Ratio 26.7 LAB CHEMISTRY METHOD 07/16/2025 2:59 PM [facility] Calcium 9.8 8.5 - 10.5 mg/dL LAB CHEMISTRY METHOD 07/16/2025 2:59 PM EDT [facility] Comment:Results verified by repeat testing AST (SGOT) 14 10 - 42 unit/L LAB CHEMISTRY METHOD 07/16/2025 2:59 PM EDT [facility] ALT (SGPT) 17 10 - 60 unit/L LAB CHEMISTRY METHOD 07/16/2025 2:59 PM EDT [facility] Alkaline Phosphatase 57 42 - 121 unit/L LAB CHEMISTRY METHOD 07/16/2025 2:59 PM EDT [facility] Total Protein 8.1(H) 6.0 - 8.0 g/dL LAB CHEMISTRY METHOD 07/16/2025 2:59 PM EDT [facility] Albumin 3.9 3.2 - 5.0 g/dL LAB CHEMISTRY METHOD 07/16/2025 2:59 PM EDT [facility] Total Bilirubin 0.5 0.0 - 1.4 mg/dL LAB CHEMISTRY METHOD 07/16/2025 2:59 PM EDT [facility] Blood Venous blood specimen / Unknown Venipuncture / Unknown 07/16/2025 11:05 AM EDT 07/16/2025 11:05 AM EDT Moris Machado MD LAB BLOOD ORDERABLES Final Resu lt [facility] [address] [place] [address], * Diabetes Eye Exam (02/17/2024) Pathologist [facility] Diabetes: Annual Retina Eye Exam abstracted Historical Provider HEALTH MAINTENANCE Final Result * Depression Screening (12/08/2023) Pathologist [facility] Depression Screening abstracted Historical Provider HEALTH MAINTENANCE Final Result * Falls Risk Assessment (11/09/2023) Falls Risk Assessment abstracted us Historical Provider HEALTH MAINTENANCE Final Result from Last 3 Months or Most Recently Relevant to Health Maintenance Insurance [employer] Member Subscriber Plan / Payer (Ef fective 2024-Present) Name:Tommy Love Relation to Subscriber:Self Name:Tommy Love Payer ID:[id number] Group ID:[id number] Type:Not on file Address: [place] [address] [place] [phone] Advance Directives * Full Code - Default (Latest Code Status on File) Date Activated Date Inactivated Comments 02/21/2025 9:15 AM 02/26/2025 7:12 PM This is orde r is used when code status has not been discussed with the patient, or code status is otherwise unknown/unconfirmed To update the patient's code status, place a code status order. Do not modify or discontinue any currently active code status orders. * Full Code - Confirmed Date Activated Date Inactivated Comments 11/20/2024 6:57 [...] Love Spouse Health Care Agent Care Teams Dx Board Operator Relationship Specialty Start Date End Date Moris Machado MD [address] [place] [phone] PCP - General Internal Medicine 10/09/24
--- OUTSIDE RECORDS SUMMARY | 2025-08-15 11:26 | XMS_ITS | Encounter Summary ---
Author Organization [facility] Address [address] [place] [address] Care Team Providers Care Crm Coordinator Name Role Phone Moris Machado MD Primary Care Provider [phone] Encounter Details Date Type Department Care Team ([facility] Contact Info) Description 01/25/2025 Billing Patient Not Present Adult Medicine [address] [phone] Moris Machado MD [address] [place] [address] Social History Tobacco Use Types Packs/Day Years [...] 1:00 PM EDT Office Visit Adult Medicine [address] [phone] Thao Ramirez, MARINA PORTER [address] [place] [address] 09/12/2025 1:00 PM EDT Anticoagulation - Warfarin Visit [facility] Clinic - [address] [address] documented as of this encounter Visit Diagnoses [...] documented as of this encounter Care Teams Crm Coordinator Relationship Specialty Start Date End Date Moris Machado MD [address] [place] [address] PCP - General Internal Medicine 10/09/24 documented as of this encounter
--- OUTSIDE RECORDS SUMMARY | 2025-08-15 11:26 | XMS_ITS | Clinical Summary ---
Author Organization [facility] Address [address] [facility] [address] [address] Phone Care Team Providers Care Climbing Guide Name Role Phone Moris Machado MD Primary Care Provider [phone] Allergies No known active allergies Medications warfarin [...] BY MOUTH EVERY OTHER DAY 45 capsule 08/07/20 25 Active calcitriol (ROCALTROL) 0.25 MCG capsule TAKE 1 CAPSULE(0.25 MCG) BY MOUTH EVERY OTHER DAY 45 capsule 07/04/20 25 025 Discontinued Active Problems Problem Noted Date Diagnosed Date Secondary diabetes mellitus 11/12/2023 Hyperglycemia due to diabetes mellitus 3 Shortness of breath 08/11/2023 half-way current use of anticoagulant 3 Chronic hypoxemic [...] his current therapies and follow-up with his employment interviewer. Lymphadenopathy 03/05/2022 08/04/2023 Overview (08/04/2023): [place] [facility] [place]21 Influenza 03/05/2022 08/04/2023 Overview (08/04/2023): D/[place] [facility] [place] 11/23/21 Interstitial pulmonary disease 11/30/2021 0 08/04/2023 Overview (08/04/2023): D/C'd [place] [facility] [place] 11/23/21 Progressive pigmentary dermatosis of [place] [...] of coronary artery disease status post inferior SD in 2003. He continues on cardioprotective medical [...] Encounters Date Type Department Care Team Description 08/07/2025 Refill [facility] [address] [place] [address] Davidson Quinonez MD 07/20/2025 Orders Only [facility] [address] [place] [address] Davidson Quinonez MD Stage 3b chronic kidney disease (HCC); Renal osteodystrophy; 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HCC) 07/04/2025 Refill [facility] [address] [place] [address] Davidson Quinonez MD from Last 3 Months Immunizations Immunization Administration Dates Next Due Influenza Split High Dose Pr eservative Free IM 08/09/2022,08/05/2020,10/10/2019,08/20,07/28/2018,09/21/2017,08/22/2017 ,07/27/2016 Influenza, Unspecified 09/28/2021,2015,08/07/2015,08/23,08/10/2013,08/28/2012 Moderna SARS-COV-2 07/30/2021,02/07/2021, 021 Pneumococcal Conjugate 13-Valent 04/08/2015 Pneumococcal Polysaccharide 10/06/2021, 7 Shingrix 05/12/2019,07/28/2018 Tdap 01/01/2020 Tetanus Toxoid, Unspecified 11/16/2007 Zoster 05/12/2019 Family [...] Visit [facility] [address] [address] Davidson Quinonez MD [address] [address] Health Maintenance Due Date Last Done Comments Diabetes: Ophthalmology Exam 08/04/2023 Diabetes: Pedal Pulse Checked 08/04/2023 Diabetes: Sensory Foot Exam 08/04/2023 Diabetes: Visual Foot Exam 08/04/2023 Influenza Vaccine (#1) 2025 2, 09/28/2021, 08/05/2020, Additional history exists Diabetes: Hemoglobin A1C 10/16/2025 025, 01/17/2025, 10/09/2024, Additional history exists Pneumococcal Vaccine: 50+ Years Completed 10/06/2021, 04/08/2015, 11/16/2007 Hepatitis B Vaccine Aged Out No longe r eligible based on patient's age to complete this topic Insurance [facility] ([id number]) [facility] ([id number]) Care Teams Climbing Guide Relationship Specialty Start Date End Date Moris Machado MD [address] [place] [address] PCP - General Internal Medicine 04/26/23
--- OUTSIDE RECORDS SUMMARY | 2025-08-15 11:27 | XMS_ITS | Encounter Summary ---
Author Organization [facility] Address [address] [place] [address] Care Team Providers Care Die Trouble Shooter Name Role Phone Moris Machado MD Primary Care Provider [phone] Encounter Details Date Type Department Care Team (Late st Contact Info) Description 12/20/2024 Nurse Triage Adult Medicine [address] [phone] Brooke Coronel, RN Social History Tobacco Use [...] Called pt via AMN and interpretor # [id number]. An appointment was made for him to [...] comes to his house through [facility] two times a week 10. [...] 1:00 PM EDT Office Visit Adult Medicine [address] [phone] Thao Ramirez NP [address] [place], [place] 09/12/2025 1:00 PM EDT Anticoagulation - Warfarin Visit Coumadin Clinic - [address] [address] documented as of this encounter Visit Diagnoses [...] documented as of this encounter Care Teams Die Trouble Shooter Relationship Specialty Start Date End Date Moris Machado MD [address] [place] [address] PCP - General Internal Medicine 10/09/24 documented as of this encounter
--- OUTSIDE RECORDS SUMMARY | 2025-08-15 11:27 | XMS_ITS | Patient Health Record ---
Author Organization [facility] Address [address] [place] [address] Care Team Providers Care Vender Name Role Phone Name Ángel NIX Primary Care Provider Reji Cobian Jr Unavailable Reason For Referral No Information Medications Medication [...] W/U Status Risk Notes Problem Esophageal reflux (874858171) Esophageal reflux (530.81) Active confirmed Problem Colon cancer screening (498446321) Colon cancer screening (V76.51) Active confirmed Problem Long-term current use of aspirin (18416434735750 3) Aspirin long-term use (V58.66) Active confirmed Plan Of Treatment Future Test Test Name Order Date COLONOSCOPY 05/23/2013 Insurance Providers Payer Name Payer Address Payer Phone Subscriber Number Group Number Insured Name Patient Relationship to Insured Coverage Start Date Coverage End Date MEDICARE OF [place] [address] [place] [id number] JAMEE SHAVER Self - patient is the insured MEDICAID OF [facility] [address] [place] [address] [id number] JAMEE SHAVER Self - patient is the insured Medical (General) History Medical History History ICD Code colonoscopy 10-17-2009 colon polyps atrial fibrillation coronary disease with a history of [place] eleveated cholesterol hypertension degenerative joint disease Denies DM,CVA,Lung disease,renal disease
== END 2025-08-15 10:32 | disposition home or self-care (01) ==
LOC: HO.HCS 09:49
PROVIDERS: PCP Internal Medicine; Visit Provider Nurse Practitioner Family
DX: I50.30 Unspecified diastolic (congestive) heart failure (principal); I48.91 Unspecified atrial fibrillation; I47.10 Supraventricular tachycardia, unspecified; I27.20 Pulmonary hypertension, unspecified
CPT/HCPCS: 99214; G2211

== ENCOUNTER → 2025-08-15 09:49 | Outpatient (BNVA) | payer OTHER, SELFPAY | PROVIDERS: PCP Internal Medicine; Visit Provider Nurse Practitioner Family | DX: I11.0 Hypertensive heart disease with heart failure (principal); I50.30 Unspecified diastolic (congestive) heart failure; I47.10 Supraventricular tachycardia, unspecified; I48.0 Paroxysmal atrial fibrillation; I27.20 Pulmonary hypertension, unspecified; Z99.81 Dependence on supplemental oxygen | CPT/HCPCS: 99212 ==

== ENCOUNTER 2025-08-22 14:47 | Outpatient (REF) | payer OTHER, SELFPAY ==
--- OUTSIDE RECORDS SUMMARY | 2005-10-28 09:30 | XMS_ITS | Continuity of Care Document ---
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 And Drain Technician Name Role Phone Unavailable Unavailable Unavailable Procedures Procedure Date Influenza 3 Years And Abo Advance Directives Directive Yes / No Effective Date File Name Resuscitation Not Answered N/A N/A Life Support Not Answered N/A N/A Intubation Not Answered N/A N/A Antibiotics Not Answered N/A N/A IV Fluid Support Not Answered N/A N/A Tube Feed Not Answered N/A N/A Other Directive N/A N/A WARNING:The information contained in this section is historical and is provided for information only and does not constitute a legal document or any assurance that the information is still accurate. Please verify the information with the mac of the legal document before using it for clinical purposes. Encounters Encounter Description Practice Location Reason(s) For Visit Diagnoses Date Provider [facility], [address] [facility] [place] [id number], [place] tel:[phone] [facility] No Information No Information Family History Family Member Type Diagnosis Age At Onset No Information Immunizations Vaccine Date Status Comments flu (split) (3 yrs or older) administered Source: New Immunization Record Payers Payer name Insurance type Covered alliance party ID Authoriza tion(s) [facility] Medicaid [id number] Social History Type Description Quantity Date Captured Comments Alcohol Use Details Unknown Caffeine Use Details Unknown Tobacco Use Status No Information Smoking Status No Information Sex Male Chief Complaint And Reason For Visit No Information History Of Present Illness Encounter Date Complaint History Of Prese nt Illness No Information Instructions Date Instruction Additional Infor mation No Information Assessments Type Assessment Date No Information
--- NOTE | 2025-08-22 15:45 | PFT_ITS ---
Flows: FEV1: 57 % of predicted at 1.61 L FVC: 89 % of predicted at 3.42 L FEV1/FVC: 47 % Bronchodilator response: Absent Volumes: Total lung capacity: 70 % of predicted at 4.98 L Residual volume: 58 % of predicted at 1.63 L Slow vital capacity: 84 % of predicted at 3.35 L Expiratory reserve volume: 75 % of predicted at 0.93 L Diffusion capacity: Severely decreased Impression: Combined moderate obstructive and restrictive ventilatory defects with no bronchodilator response. Decreased diffusion capacity suggests emphysema. MTDD
[2025-08-22 15:50] VITALS: PULSE 70; O2SAT 94
--- OUTSIDE RECORDS SUMMARY | 2025-08-22 19:04 | XMS_ITS | Clinical Summary ---
Author Organization 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 Lymphadenopathy 03/05/2022 08/04/2023 Overview (08/04/2023): D/C'd from [...] Refill [facility] [address] [place] [address] Davidson Quinonez MD 07/20/2025 Orders Only [facility] [address] [place] [address] Davidson Quinonez MD Stage 3b chronic kidney disease (HCC); Renal osteodystrophy; 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HCC) 07/04/2025 Refill [facility] [address] [place] [address] Davidson Quinonez MD from Last 3 Months [...] Visit [facility] [address] [address] Davidson Quinonez MD [address] [address] Health Maintenance Due Date Last [...] patient's age to complete this topic Insurance [facility] ([id number]) [facility] ([id number]) Care Teams Electric Motor Repairman Relationship Specialty Start Date End Date Moris Machado MD [address] [place] [id number] PCP - General Internal Medicine 04/26/23
--- OUTSIDE RECORDS SUMMARY | 2025-08-22 19:04 | XMS_ITS | Patient Health Record ---
Author Organization [facility] Address [address] [place] [address] Care Team Providers Care Billing Services Manager Name Role Phone Name Ángel NIX Primary [...] W/U Status Risk Notes Problem Esophageal reflux (474649485) Esophageal reflux (530.81) Active confirmed Problem Colon cancer screening (508968410) Colon cancer screening (V76.51) Active confirmed Problem Long-term current use of aspirin (89418357195030 3) Aspirin long-term use (V58.66) Active confirmed Plan Of Treatment Future Test Test Name Order Date COLONOSCOPY 05/23/2013 Insurance Providers Payer Name Payer Address Payer Phone Subscriber Number Group Number Insured Name Patient Relationship to Insured Coverage Start Date Coverage End Date MEDICARE OF [place] [address] [place] [id number] [phone] [id number] JAMEE SHAVER Self - patient is the insured MEDICAID OF [facility] [address] [place] [address] [id number] JAMEE SHAVER Self - patient is the insured Medical (General) History Medical History History ICD Code colonoscopy 10-17-2009 colon polyps atrial fibrillation coronary disease with a history of [place] eleveated cholesterol hypertension degenerative joint disease Denies DM,CVA,Lung disease,renal disease
== END 2025-08-22 14:48 | disposition home or self-care (01) ==
LOC: HO.RESP 14:47
PROVIDERS: PCP Internal Medicine; Visit Provider Hospitalist
DX: I27.20 Pulmonary hypertension, unspecified (principal)
CPT/HCPCS: 94010; 94640; 94727; 94729

== ENCOUNTER → 2025-08-22 15:45 | Outpatient (BNV) | payer OTHER, SELFPAY | PROVIDERS: PCP Internal Medicine; Visit Provider Internal Medicine Pulmonary Disease | DX: I27.20 Pulmonary hypertension, unspecified (principal) | CPT/HCPCS: 94060; 94727; 94729 ==

== ENCOUNTER 2025-08-26 15:05 | Outpatient (REF) | payer OTHER, SELFPAY ==
--- OUTSIDE RECORDS SUMMARY | 2005-10-28 09:30 | XMS_ITS | Continuity of Care Document ---
Author Organization [facility] Address [address] [place] [address] Phone Care Team Providers Care Papier Mache' Molder Name Role Phone Unavailable Unavailable Unavailable Procedures [...] Location Reason(s) For Visit Diagnoses Date Provider [facility], [address] [facility] [place], [id number], [place] tel:[phone] [facility] No Information No Information Family History Family Member Type Diagnosis Age At Onset No Information Immunizations Vaccine Date Status Comments flu (split) (3 yrs or older) administered Source: New Immunization Record Payers Payer name Insurance type Covered green party ID Authoriza tion(s) [facility] Medicaid [id number] Social History Type Description Quantity Date Captured [...]
--- OUTSIDE RECORDS SUMMARY | 2025-08-26 14:00 | XMS_ITS | Encounter Summary ---
Author Organization [facility] Address [address] [address] Phone Care Team Providers Care Tank Setter Helper Name Role Phone Moris Macahdo MD Primary Care Provider [phone] Encounter Details Date Type Department Care Team (Latest Contact Info) Description 08/26/2025 2:00 PM EDT [facility] Visit [facility] [address] [facility] YELENA COOPER [address] Davidson Quinonez MD [address] [address] Stage 3b chronic kidney disease (HCC) (Primary Dx); 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HCC); Renal osteodystrophy Social History Tobacco Use Types Packs/Day Years [...] Sign Reading Time Taken Comments Blood Pressure 128/60 08/26/2025 2:23 PM EDT Pulse 74 08/26/2025 2:23 PM EDT Temperature - - Respiratory Rate - - Oxygen Saturation 83% 08/26/2025 2:23 PM EDT Inhaled Oxygen Concentration - - Weight 82.6 kg (182 lb) 08/26/2025 2:23 PM EDT Height - - Body Mass Index - - documented in this encounter Patient Instructions * Patient Instructions* Davidson Quinonez MD - 08/26/2025 2:00 PM EDT No NSAIDS - Do not take non-steroidal anti-inflammatory medications (NSAIDS) such as Ibuprofen (Advil, Motrin, etc), Naproxen (Aleve, etc), Celecoxib (Celebrex) or Ketoprofen. These common arthritis medications can cause permanent kidney damage or worsen your kidney damage. For mild occasional pain, Acetaminophen (Tylenol, etc) is safe for your kidneys. Sodium and Your CKD Diet: How to Spice Up Your Cooking What is sodium? Sodium is a mineral found naturally in foods and is the major part of table salt. What are the effects of eating too much sodium? When your kidneys are not healthy, extra sodium and fluid build up in your body. This can cause swollen ankles, puffiness, a rise in blood pressure, shortness of breath, and/or fluid around your heart and lungs. See the following table for suggestions on how to reduce sodium in your diet. LIMIT THE [AMOUNT OF... FOOD TO LIMIT BECAUSE OF THEIR HIGH SODIUM CONTENT ACCEPTABLE SUBSTITUTES SALT & SALT SEASONINGS Table salt Seasoning salt Garlic salt Onion salt Celery salt Lemon pepper Lite salt Meat tenderizer Bouillon cubes Flavor enhancers Fresh garlic, fresh onion, garlic powder, onion powder, black [pepper, lemon juice, low-sodium/salt-free seasoning blends, vinegar SALTY FOODS Barbecue sauce Steak sauce Soy sauce Teriaky sauce Oyster sauce Salted Snacks such as Crackers Potato chips Dennehotso chips Pretzels Tortilla chips Nuts Popcorn Roscoe seeds Homemade or low- sodium sauces and salad dressings; Vinegar, dry mustard, unsalted popcorn, pretzels, tortilla or corn chips Cured Foods Ham Salt pork Hunt Sauerkraut Pickles, pickle relish Lox & Haque Olives Fresh beef, veal, pork, poultry, fish, eggs [place] MEATS Hot Dogs Cold cuts, deli meats Pastrami Sausage Corned beef Spam Low-salt deli meats PROCESSED FOODS Buttermilk Cheese Canned: Soups Tomato products Vegetable juices Canned vegetables Convenience Foods such as: TV Dinners Canned raviolis [place] Macaroni & Cheese Spaghetti Frozen prepared foods Fast foods Natural cheese (1-2 oz Per week) Homemade or shelia,1- sodium soups, canned food without added salt Homemade casseroles without added salt, made with fresh or raw vegetables, fresh meat, rochelle, pasta, or unsalted canned vegetables Some salt or sodium is needed for body water balance. But when your kidneys lose the ability to control sodium and water balance, you may experience the following: thirst fluid gain high blood pressure discomfort during dialysis By using less sodium in your diet, you can control these problems. Hints to keep your sodium intake down Cook with herbs and spices instead of salt. (Refer to Spice Up Your Cooking section for further suggestions.) Read food labels and choose those foods low in sodium. Avoid salt substitutes and specialty low-sodium foods made with salt substitutes because they are high in potassium. When eating out, ask for meat or fish without salt. Ask for gravy or sauce on the side; these may contain large amounts of salt and should be used in small amounts . Limit use of canned, processed and frozen foods. Some information about reading labels Understanding the terms: Sodium Free - Only a trivial amount of sodium per serving. Very Low Sodium - 35 mg or less per serving. Low Sodium - 140 mg or less per serving. Reduced Sodium - Foods in which the level of sodium is reduced by 25%. Light or Lite in Sodium - Foods in which the sodium is reduced by at least 50% . Simple rule of thumb : If salt is listed in the first five ingredients, the item is probably too high in sodium to use. All food labels now have milligrams (mg) of sodium listed. Follow these steps when reading the sodiwn information on the label: 1. Know how much sodium you are allowed each day. Remember that there are 1000 milligrams (mg) in 1gram. For [id number], if your diet prescription is 2 grams of sodium , your limit is 2000 milligrams per day. Consider the sodium value or other food to be eaten during the day. 2. Look at the package label. Check the serving size. Nutrition values are expressed per margaux g. How does this compare to your total daily allowance? If the sodium level is 500 mg or more per serving, the item is not a good choice. 3. Compare labels of similar products. Select the lowest sodium level for the same serving size. How to Spice Up Your Cooking Giving up salt does not mean giving up flavor. Learn to season your food with herbs and spices. Be creative and experiment for a new and exciting flavor. What kinds of spices and herbs should I use instead of salt to add flavor? Try the following spices with the foods listed. Allspice: Use with beef, fish, beets, cabbage, canots, peas, fruit. Basil: Use with beef, pork, most vegetables. [place]: Use with beef, pork, most vegetables. [place]: Use with beef, pork, green beans, cauliflower, cabbage, beets, asparagus, and in dips and marinades. Cardamom: Use with fruit and in baked goods. [place]: Use with beef, chicken, pork, fish, green beans, carrots and in marinades. Dill: Use with beef, chicken, green beans, cabbage, carrots, peas and in dips. [place]na: Use with beef, chicken, pork, green beans, cauliflower and eggplant. Marjoram: Use with beef, chicken, pork, green beans, cauliflower and eggplant. Allie: Use with chicken, pork, cauliflower, peas and in marinades. Thyme: Use with beef, chicken, pork, fish, green beans, beets and carrots. Gaetano: Use with chicken, pork, eggplant and in dressing. Tarragon: Use with fish, chicken, asparagus, beets, cabbage, cauliflower and in marinades. Tips for cooking with herbs and spices Purchase spices and herbs in small amounts . When they sit on the shelf for years they lose their flavor. Use no more than ?? teaspoon of dried spice (?? of fresh) per pound of meat. Add ground spices to food about 15 minutes before the end of the cooking period. Add whole spices to food at least one hour before the end of the cooking period. Combine herbs with oil or butter, set for 30 minutes to bring out their flavor, then brush on foodswhile they cook, or brush meat with oil and sprinkle herbs one hour before coolcing. Crush dried herbs before adding to foods. Can I use salt substitutes? Caution! If you are told to limit potassium in your diet, be very cautious about using salt substitutes because most of them contain some form of potassium. Check with your doctor or dietitian beforeusing and salt substitute. [place] and create your own seasoning containing those spices that you like. If you would like to become a volunteer and find out more about what's happening where you live, contact your local [facility] Affiliate. Blood pressure monitoring education: Monitor home blood pressure values after sitting for 5 minutes with back and arm support. Keep a log. Bring your log and blood pressure cuff to your next visit. documented in this encounter Plan of Treatment Upcoming Encounters Date Type Department Care Team (Late st Contact Info) Description 03/03/2026 1:15 PM EDT Office Visit [facility] [address] [place] [address] Davidson Quinonez MD [address] [facility] [address] [place] [address] Pending Results Name Type Priority Associated Diagnoses Date /Time Phosphorus Lab Routine Stage 3b chronic kidney disease (HCC) 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HCC) Renal osteodystrophy 08/26/2025 3:30 PM EDT Magnesium Lab Routine Stage 3b chronic kidney disease (HCC) 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HCC) Renal osteodystrophy 08/26/2025 3:30 PM EDT Albumin Lab Routine Stage 3b chronic kidney disease (HCC) 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HCC) Renal osteodystrophy 08/26/2025 3:30 PM EDT Calcium Lab Routine Stage 3b chronic kidney disease (HCC) 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HCC) Renal osteodystrophy 08/26/2025 3:30 PM EDT Electrolyte panel Lab Routine 025 3:30 PM EDT BUN Lab Routine 08/26/2025 3:3 0 PM EDT Creatinine Lab Routine 08/26/2025 3:3 0 PM EDT Scheduled Orders Name Type Priority Associated Diagnoses Orde r Schedule PTH, Intact Lab Routine Stage 3b chronic kidney disease (HCC) 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HCC) Renal osteodystrophy Expected: 08/26/2025, Expires: 09/25/2026 Renal Function Panel Lab Routine Stage 3b chronic kidney disease (HCC) 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HCC) Renal osteodystrophy Expected: 08/26/2025, Expires: 09/25/2026 Urine Albumin / Creatinine Ratio Lab Routine Stage 3b chronic kidney disease (HCC) 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HCC) Renal osteodystrophy Expected: 08/26/2025, Expires: 09/25/2026 Vitamin D 25 Hydroxy Lab Routine Stage 3b chronic kidney disease (HCC) 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HCC) Renal osteodystrophy Expected: 08/26/2025, Expires: 09/25/2026 CBC Lab Routine Stage 3b chronic kidney disease (HCC) 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HCC) Renal osteodystrophy Expected: 08/26/2025, Expires: 09/25/2026 documented as of this encounter Procedures Procedure Name Priority Date/Time Associated Diagnosis Comments PROTEIN / CREATININE RATIO, URINE Routine 08/26/2025 4:15 PM EDT Stage 3b chronic kidney disease (HCC) 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HCC) Renal osteodystrophy ALBUMIN, URINE, RANDOM Routine 08/26/2025 4:15 PM EDT URINALYSIS WITH MICROSCOPIC Routine 08/26/2025 4:15 PM EDT Stage 3b chronic kidney disease (HCC) 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HCC) Renal osteodystrophy CREATININE, BLOOD Routine 08/26/2025 3:3 0 PM EDT PTH, INTACT (HC) Routine 08/26/2025 3:30 PM EDT CBC AND DIFFERENTIAL Routine 08/26/2025 3:30 PM EDT BUN Routine 08/26/2025 3:30 PM EDT PHOSPHATE ( PHOSPHORUS) Routine 08/26/2025 3:30 PM EDT Stage 3b chronic kidney disease (HCC) 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HCC) Renal osteodystrophy MAGNESIUM Routine 08/26/2025 3:30 PM EDT Stage 3b chronic kidney disease (HCC) 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HCC) Renal osteodystrophy CALCIUM Routine 08/26/2025 3:30 PM EDT Stage 3b chronic kidney disease (HCC) 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HCC) Renal osteodystrophy ALBUMIN Routine 08/26/2025 3:30 PM EDT Stage 3b chronic kidney disease (HCC) 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HCC) Renal osteodystrophy ELECTROLYTE PANEL Routine 08/26/2025 3:3 0 PM EDT documented in this encounter Results * (ABNORMAL) Albumin, urine, random (08/26/2025 4:15 PM EDT) Creatinine, Urine 19.99 mg/dL Se e order comments Urine Microalbumin 35.0 mg/L See order comments Microalbumin/Crea tinine Ratio 175.0(H) <30 ug/mg cr See order comments Comment: Albumin/Creatinine Ratio Reference Ranges: Normal: < 30 ug/mg creatinine Microalbuminuria: 30 - 300 ug/mg creatinine Clinical Albuminuria: > 300 ug/mg creatinine 08/26/2025 4:15 PM EDT 08/26/2025 4:15 PM EDT us Davidson Quinonez MD LAB URINE ORDERABLES Final Re sult [place] See order comments [place] [address] * Protein, Total, Random Urine w/Creatinine (Protein/Creat Ratio) (08/26/2025 4:15 PM EDT) Protein Urine Random <7 <12 mg/dL See order comments Protein/Creatin ine Ratio, Urine TNP <0.2 See order comments Comment: Unable to calculate urine protein creatinine ratio due to low creatinine or protein result. Urine Urine specimen obtained by clean catch procedure / Unknown 08/26/2025 4:15 PM EDT 08/26/2025 4:15 PM EDT Davidson Quinonez MD LAB URINE ORDERABLES Final Re sult Performing Organization Address [facility] de Phone Number [place] See order comments [place] [address] * (ABNORMAL) Urinalysis with microscopic (08/26/2025 4:15 PM EDT) Color Urine Yellow See orde r comments Appearance Urine Clear See order comments pH Urine 5.5 5.0 - 9.0 See order comments Glucose Urine >=1000(A) Negative mg/dL See order comments Blood, Urine Negative Negative See ord er comments Specific [place] Urine 1.010 1.005 - 1.025 See order comments Protein Urine Negative Neg-Trace mg/dL See order comments Ketones, Urine Negative Negative mg/dL See order comments Nitrite, Urine Negative Negative See o rder comments Leukocyte Esterase Urine Negative Negative See order comments RBC, Urine 0-2 0 - 2 /HPF See orde r comments WBC 0-5 0 - 5 /HPF See order comments Squamous Epithelial, Urine 0-2 0 - 2 /HPF See order comments Bacteria, Urine None Seen None Seen See order comments Hyaline Casts, Urine 0-2 0 - 2 /LPF See order comments Urine Urine specimen obtained by clean catch procedure / Unknown 08/26/2025 4:15 PM EDT 08/26/2025 4:15 PM EDT Davidson Quinonez MD LAB URINE ORDERABLES Final Re sult Performing Organization Address [facility] Co de Phone Number [place] See order comments [place] [address] * (ABNORMAL) PTH, Intact (08/26/2025 3:30 PM EDT) Parathyroid Hormone, Intact 124.4(H) 8.7 - 77.1 pg/mL See order comments 08/26/2025 3:30 PM EDT 08/26/2025 3:30 PM EDT us Davidson Quinonez MD LAB [id number] SOLICITED RESULTS Final Result [place] See order comments [place] [address] * (ABNORMAL) CBC and Differential (08/26/2025 3:30 PM EDT) WBC 10.9(H) 4.8 - 10.8 X10*3/uL See order comments RBC 5.42 4.60 - 5.80 X10*6/uL See order comments Hgb 14.1 14.0 - 18.0 g/dl See order comments Hematocrit 46.0 42.0 - 52.0 % See order comments MCV 84.9 80.0 - 98.0 fL See order comments MCH 26.0(L) 27.0 - 33.0 pg See order comments MCHC 30.7(L) 31.0 - 36.0 g/dl See order comments RDW 21.3(H) 11.0 - 16.0 % See order comments Platelets 206 160 - 400 X10*3/uL See order comments MPV 10.6 9.4 - 12.4 fL See order comments Neutrophils % Auto 74.9(H) 45 - 73 % See order comments Immature Granulocytes 1.1(H) 0.0 - 0.4 % See order comments Lymphocytes Relative 17.6(L) 20 - 40 % See order comments Monocytes 5.8 2 - 11 % See order comments Eosinophils Relative 0.3 0 - 4 % See order comments Basophils Relative 0.3 0 - 2 % See order comments nRBC Count 0.3(H) 0.0 - 0.2 /100WBC See order comments Neutrophils Absolute 8.2 2.0 - 8.3 x10*3/uL See order comments Immature Grans (Absolute) 0.12(H) 0.00 - 0.03 X10*3/uL See order comments Lymphocytes Absolute 1.9 1.2 - 4.9 X10*3/uL See order comments Monocytes Absolute 0.6 0.1 - 1.2 X10*3/uL See order comments Eosinophils Absolute 0.0 0.0 - 0.4 X10*3/uL See order comments Basophils Absolute 0.0 0.0 - 0.2 X10*3/uL See order comments NRBC Absolute 0.030(H) 0.0 - 0.012 X10*3/uL See order comments 08/26/2025 3:30 PM EDT 08/26/2025 3:30 PM EDT us Davidson Quinonez MD LAB BLOOD ORDERABLES Final Re sult [place] See order comments [place] [address] documented in this encounter Visit Diagnoses Diagnosis Stage 3b chronic kidney disease (HCC)- Primary 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HCC) Renal osteodystrophy documented in this encounter Care Teams Tank Setter Helper Relationship Specialty Start Date End Date Moris Machado MD [address] [place] [address] PCP - General Internal Medicine 04/26/23 documented as of this encounter
[2025-08-26 15:32] LABS: MANUAL DIFF FLAG NO
[2025-08-26 16:21] LABS: Hematocrit 46.0 % (42.0-52.0); Hemoglobin 14.1 g/dl (14.0-18.0); Imm Gran Abs Auto 0.12 X10*3/uL (0.00-0.03); Imm Gran Pct Auto 1.1 % (0.0-0.4); Lymphocytes Absolute Auto 1.9 X10*3/uL (1.2-4.9); Mean Corpuscular HGB Conc 30.7 g/dl (31.0-36.0); Mean Corpuscular Hemoglobin 26.0 pg (27.0-33.0); Mean Corpuscular Volume 84.9 fL (80.0-98.0); NRBC Abs Auto 0.030 X10*3/uL (0.0-0.012); NRBC Pct Auto 0.3 /100WBC (0.0-0.2); Platelet Count 206 X10*3/uL (160-400); Red Blood Count 5.42 X10*6/uL (4.60-5.80); White Blood Count 10.9 X10*3/uL (4.8-10.8)
[2025-08-26 16:41] LABS: Appearance Urine Clear; Glucose Urine UA >=1000 mg/dL (Negative); PH 5.5 (5.0-9.0); Specific Gravity - Urine 1.010 (1.005-1.025); UMIC TRIGGER UA YES
[2025-08-26 17:00] LABS: Parathyroid Hormone Intact 124.4 pg/mL (8.7-77.1)
[2025-08-26 17:06] LABS: Albumin Level 4.6 g/dL (3.5-5.0); Anion Gap 19 (12-20); Blood Urea Nitrogen 49 mg/dL (9-16); Calcium 10.3 mg/dL (8.4-10.2); Carbon Dioxide 27 mmol/L (22-29); Chloride 100 mmol/L (96-108); Estimated Glomerular Filt Rate 29; Magnesium 2.3 mg/dL (1.6-2.6); Potassium 4.8 mmol/L (3.3-5.1); Sodium 141 mmol/L (135-145)
[2025-08-26 17:06] LABS: Microalbum/Creatinine Ratio Ur 175.0 ug/mg cr (<30); Total Protein Urine Random < 7 mg/dL (<12)
--- OUTSIDE RECORDS SUMMARY | 2025-08-26 17:14 | XMS_ITS | Encounter Summary ---
Author Organization [facility] Address [address] [place] [address] Care Team Providers Care Head Of Marketing Adometry Name Role Phone Moris Machado MD Primary Care Provider [phone] Encounter Details Date Type Department Care Team (Late st Contact Info) Description 12/20/2024 Nurse Triage Adult Medicine [address] [phone] Brooke Coronel, RN Social History Tobacco Use Types Packs/Day Years Used Date Smoking Tobacco: Former Cigarettes 1 11 0 11/28/1991 - 11/28/2002 Smokeless Tobacco: Never Alcohol Use Standard Drinks/Week Comments No 0 (1 standard drink = 0.6 oz pur e alcohol) Interpersonal Safety Answer Date Record ed Physical Abuse Unrecognized value 11/20/2024 Verbal Abuse Unrecognized value 11/20/2024 Sex and Gender Information Value Date Recorded Sex Assigned at Male 12/11/2024 3:28 PM EST Legal Sex Male 5:02 AM EST Gender Identity Male 12/11/2024 3:28 PM EST Sexual Orientation Straight 12/11/2024 3: 28 PM EST documented as of this encounter Progress Notes * Brooke Coronel RN - 12/20/2024 4:38 PM EST Called pt via AMN and interpretor # [id number]. An appointment was made for him to [...] therapist who comes to his house through [facility] two times a week 10. [...] 1:00 PM EDT Office Visit Adult Medicine [address] [phone] Thao Ramirez NP [address] [place] [address] 09/12/2025 1:00 PM EDT Anticoagulation - [facility]farin [facility] [address] [address] documented as of this encounter Visit Diagnoses [...] documented as of this encounter Care Teams Head Of Marketing Adometry Relationship Specialty Start Date End Date Moris Machado MD [address] [place] [address] PCP - General Internal Medicine 10/09/24 documented as of this encounter
--- OUTSIDE RECORDS SUMMARY | 2025-08-26 17:14 | XMS_ITS | Encounter Summary ---
Author Organization [facility] Address [address] [place] [address] Care Team Providers Care Supervisor Machine Setter Name Role Phone Moris Machado MD Primary Care Provider [phone] Encounter Details Date Type Department Care Team ([facility] Contact Info) Description 01/23/2025 Billing Patient Not Present Adult Medicine [address] [phone] Moris Machado MD [address] [place] [address] Social History Tobacco Use Types Packs/Day Years [...] Upcoming Encounters Date Type Department Care Team ([facility] Contact Info) Description 08/27/2025 1:00 PM EDT Office Visit Adult Medicine [address] [phone] Thao Ramirez BRISKET PULLER [address] [place] [address] 09/12/2025 1:00 PM EDT Anticoagulation - Warfarin Visit [facility] - [place] [address] [place] [address] documented as of this encounter Visit Diagnoses [...] documented as of this encounter Care Teams Supervisor Machine Setter Relationship Specialty Start Date End Date Moris Machado MD [address] [place] [address] PCP - General Internal Medicine 10/09/24 documented as of this encounter
--- OUTSIDE RECORDS SUMMARY | 2025-08-26 17:14 | XMS_ITS | Encounter Summary ---
Author Organization [facility] Address [address] [place] [address] Care Team Providers Care Space Controller Name Role Phone Moris Machado MD Primary Care Provider Encounter Details Date Type Department Care Team ([facility] Contact Info) Description 01/25/2025 Billing Patient Not Present Adult Medicine [address] [phone] Moris Machado MD [address] [place] [address] Social History Tobacco Use Types Packs/Day Years [...] Upcoming Encounters Date Type Department Care Team ([facility] Contact Info) Description 08/27/2025 1:00 PM EDT Office Visit Adult Medicine [address] [phone] Thao Ramirez ADMISSIONS CONSULTANT [address] [place] [address] 09/12/2025 1:00 PM EDT Anticoagulation - Warfarin Visit [facility] - [place] [address] [place] [address] documented as of this encounter Visit Diagnoses [...] documented as of this encounter Care Teams Space Controller Relationship Specialty Start Date End Date Moris Machado MD [address] [place] [address] PCP - General Internal Medicine 10/09/24 documented as of this encounter
--- OUTSIDE RECORDS SUMMARY | 2025-08-26 17:14 | XMS_ITS | Patient Health Record ---
Author Organization [facility] Address [address] [place] [address] Care Team Providers Care Sign Painter Helper Name Role Phone Name Ángel NIX Primary [...] W/U Status Risk Notes Problem Esophageal reflux (707537712) Esophageal reflux (530.81) Active confirmed Problem Colon cancer screening (481644273) Colon cancer screening (V76.51) Active confirmed Problem Long-term current use of aspirin ([id number] 3) Aspirin long-term use (V58.66) Active confirmed Plan Of Treatment Future Test Test Name Order Date COLONOSCOPY 05/23/2013 Insurance Providers Payer Name Payer Address Payer Phone Subscriber Number Group Number Insured Name Patient Relationship to Insured Coverage Start Date Coverage End Date MEDICARE OF [place] [address] [place] [address] [phone] [id number] JAMEE SHAVER Self - patient is the insured MEDICAID OF [facility] [address] [place] [address] [phone] [id number] JAMEE SHAVER Self - patient is the insured Medical (General) History Medical History History ICD Code colonoscopy 10-17-2009 colon polyps atrial fibrillation coronary disease with a history of [place] eleveated cholesterol hypertension degenerative joint disease Denies DM,CVA,Lung disease,renal disease
--- OUTSIDE RECORDS SUMMARY | 2025-08-26 17:14 | XMS_ITS | Encounter Summary ---
Author Organization [facility] Address [address] [place] [address] Care Team Providers Care Binder Stripper Machine Name Role Phone Moris Machado MD Primary Care Provider [phone] Encounter Details Date Type Department Care Team ([facility] Contact Info) Description 02/07/2025 Billing Patient Not Present Adult Medicine [address] [phone] Moris Machado MD [address] [place] [address] Social History Tobacco Use Types Packs/Day Years [...] Upcoming Encounters Date Type Department Care Team ([facility] Contact Info) Description 08/27/2025 1:00 PM EDT Office Visit Adult Medicine [address] [phone] Thao Ramirez INDUSTRIAL ROOFER [address] [place] [address] 09/12/2025 1:00 PM EDT Anticoagulation - Warfarin Visit [facility] - [place] [address] [place] [address] documented as of this encounter Visit Diagnoses [...] documented as of this encounter Care Teams Binder Stripper Machine Relationship Specialty Start Date End Date Moris Machado MD [address] [place] [address] PCP - General Internal Medicine 10/09/24 documented as of this encounter
--- OUTSIDE RECORDS SUMMARY | 2025-08-26 17:14 | XMS_ITS | Clinical Summary ---
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 Lymphadenopathy 03/05/2022 08/04/2023 Overview (08/04/2023): D/C'd from [facility] on 11/23/21 Influenza 03/05/2022 08/04/2023 Overview (08/04/2023): D/C'd from [facility] on 11/23/21 Interstitial pulmonary disease 11/30/2021 0 08/04/2023 Overview (08/04/2023): D/C'd from [facility] on 11/23/21 Progressive pigmentary dermatosis of Schamberg [...] of coronary artery disease status post inferior HI in 2003. He continues on cardioprotective medical [...] Encounters Date Type Department Care Team Description 08/26/2025 2:00 PM EDT Office Visit [facility] [address] [place] [address] Davidson Quinonez MD Stage 3b chronic kidney disease (HCC) (Primary Dx); 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HCC); Renal osteodystrophy 08/07/2025 Refill [facility] [address] [place] [address] Davidson Quinonez MD 07/20/2025 Orders Only [facility] [address] [place] [address] Davidson Quinonez MD Stage 3b chronic kidney disease (HCC); Renal osteodystrophy; 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HCC) 07/04/2025 Refill [facility] [address] [place] [address] Davidson Quinonez MD from Last 3 Months [...] Visit [facility] [address] [place] [address] Davidson Quinonez MD [address] [address] Health Maintenance Due Date Last Done Comments [...] Procedure Name Priority Date/Time Associated Diagnosis Comments ALBUMIN, URINE, RANDOM Routine 08/26/2025 4:15 PM EDT PROTEIN / CREATININE RATIO, URINE Routine 08/26/2025 4:15 PM EDT Stage 3b chronic kidney disease (HCC) 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HCC) Renal osteodystrophy URINALYSIS WITH MICROSCOPIC Routine 08/26/2025 4:15 PM EDT Stage 3b chronic kidney disease (HCC) 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HCC) Renal osteodystrophy CREATININE, BLOOD Routine 08/26/2025 3:3 0 PM EDT BUN Routine 08/26/2025 3:30 PM EDT ELECTROLYTE PANEL Routine 08/26/2025 3:3 0 PM EDT PTH, INTACT (HC) Routine 08/26/2025 3:30 PM EDT CBC AND DIFFERENTIAL Routine 08/26/2025 3:30 PM EDT CALCIUM Routine 08/26/2025 3:30 PM EDT Stage [...] diabetic chronic kidney disease (HCC) Renal osteodystrophy PHOSPHATE ( PHOSPHORUS) Routine 08/26/2025 3:30 PM EDT Stage 3b chronic kidney disease (HCC) 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HCC) Renal osteodystrophy from Last 3 Months Results * Protein, Total, Random Urine w/Creatinine (Protein/Creat [...] ORDERABLES Final Re sult Performing Organization Address [facility] Co de Phone Number [place] See order comments [place] [address] * (ABNORMAL) Albumin, urine, random (08/26/2025 4:15 [...] ORDERABLES Final Re sult Performing Organization Address City/State/[facility] de Phone Number [place] See order comments [place] [address] * (ABNORMAL) Urinalysis with microscopic (08/26/2025 4:15 PM EDT) Color Urine Yellow See orde r comments Appearance Urine Clear See order comments pH Urine 5.5 5.0 - 9.0 See order comments Glucose Urine >=1000(A) Negative mg/dL See order comments Blood, Urine Negative Negative See ord er comments Specific Tillman Urine 1.010 1.005 - 1.025 See order [...] ORDERABLES Final Re sult Performing Organization Address [facility] de Phone Number [place] See order comments [place] [address] * (ABNORMAL) PTH, Intact (08/26/2025 3:30 PM EDT) Parathyroid Hormone, Intact 124.4(H) 8.7 - 77.1 pg/mL See order comments 08/26/2025 3:30 PM EDT 08/26/2025 3:30 PM EDT us Davidson Quinonez MD LAB [id number] SOLICITED RESULTS Final Result Performing Organization Address [facility] de Phone Number [place] See order comments [place] [address] * (ABNORMAL) CBC and Differential (08/26/2025 3:30 [...] MD LAB BLOOD ORDERABLES Final Re sult [place] See order comments [place] [address] from Last 3 Months Insurance [facility] ([id number]) [facility] ([id number]) Care Teams Account Leader Relationship Specialty Start Date End Date Moris Machado MD [address] [place] [phone] PCP - General Internal Medicine 04/26/23
--- OUTSIDE RECORDS SUMMARY | 2025-08-26 17:14 | XMS_ITS | Encounter Summary ---
Author Organization [facility] Address [address] [place] [address] Care Team Providers Care Customer Service Assistant Name Role Phone Moris Machado MD Primary Care Provider [phone] Encounter Details Date Type Department Care Team ([facility] Contact Info) Description 01/25/2025 Billing Patient Not Present Adult Medicine [address] [phone] Moris Machado MD [address] [place] [address] Social History Tobacco Use Types Packs/Day Years [...] Encounters Date Type Department Care Team ([facility] Contact Info) Description 08/27/2025 1:00 PM EDT Office Visit Adult Medicine [address] [phone] Thao Ramirez [employer] [address] [place] [address] 09/12/2025 1:00 PM EDT Anticoagulation - Warfarin Visit [facility] - [place] [address] [place] [address] documented as of this encounter Visit Diagnoses [...] documented as of this encounter Care Teams Customer Service Assistant Relationship Specialty Start Date End Date Moris Machado MD [address] [place] [address] PCP - General Internal Medicine 10/09/24 documented as of this encounter
--- OUTSIDE RECORDS SUMMARY | 2025-08-26 17:14 | XMS_ITS | Clinical Summary ---
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 insulin use, unspecified whether stage 3a or 3b CKD ([facility] V24, [facility] V28) Change sensor every 15 days 2 each 06/25/20 Active blood-glucose, electronic assembler,cont (FreeStyle Martha 3 Blaine) miscIndication s:Type 2 diabetes mellitus with stage 3 chronic kidney disease, unspecified whether laborer marine terminal insulin use, unspecified whether stage 3a or 3b CKD ([facility] V24, [facility] V28) Use daily to check bs 1 [...] Acute on chronic hypoxic res piratory failure ([facility] V24, [facility] V28) 02/21/2025 Atrial fibrillation ([facility] V24, [facility] V28) 1 12/26/2023 intermediate (current) use of anticoagulants 2023 Diabetes mellitus due to und erlying condition, uncontrolled, with hyperglycemia ([facility] V24, [facility] V28) 11/12/2023 Secondary diabetes mellitus ([facility] V24, [facility] V28) 11/12/2023 (HFpEF) heart failure with p reserved ejection fraction ([facility] V24, [facility] V28) 08/11/2023 Overview (10/19/2024): Last Assessment & [...] PM EST): Chronic hypoxemic respirator y failure ([facility] V24, [facility] V28) 08/11/2023 Assessment & Plan (12/10/2024 3:56 PM EST): SOB (shortness of breath) 08/11/2023 SVT (supraventricular tachycardia) ([facility] V24) 08/11/2023 Overview (10/19/2024): Last Assessment & [...] osteodystrophy 08/04/2023 Stage 3b chronic kidney disease ([facility] V24, [facility] V28) 08/04/2023 Type 2 diabetes mellitus wit h diabetic chronic kidney disease ([facility] V24, [facility] V28) 08/04/2023 Heart failure ([facility] V24, [facility] V28) 023 Pulmonary HTN ([facility] V24, [facility] V28) 023 Overview (10/19/2024): Last Assessment & Plan: Patient has a history of pulmonary hypertension likely in the setting of COPD and atrial fibrillation. EKG today showed normal sinus rhythm with right bundle branch block. He follows with pulmonology Dr. Bazzi given his history of interstitial lung disease and continues on oxygen therapy. 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 We will update an echocardiogram to reevaluate his right ventricular function. 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 He is a [id number]-[id number] score of 4 and continues on anticoagulation as prescribed. He is also on metoprolol for rate control. His heart rate is well controlled today. He denies any excessive bruising or bleeding. We will continue current therapies. CAD (coronary artery disease) 03/16/2012 Overview (10/19/2024): Last Assessment & Plan: The patient has a history of coronary artery disease status post inferior [place] in 2003. He continues on cardioprotective medical [...] to medical therapies. Seropositive rheumatoid arth ritis ([facility] V24, [facility] V28) 03/16/2012 Overview (10/19/2024): RF, JENNIFER positive. 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 07/17/2025 10:30 AM EDT Anticoagulation - Warfarin Visit [facility] - [address] [phone] Atrial fibrillation, unspecified type ([facility] V24, [facility] V28) (Primary Dx); 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 06/25/2025 10:45 AM EDT Office Visit Endocrinology [address] [phone] Nicole Samson PA Type 2 diabetes mellitus with stage 3 chronic kidney disease, unspecified whether laborer marine terminal insulin use, unspecified whether stage 3a or 3b CKD ([facility] V24, [facility] V28) (Primary Dx); Secondary hypertension; Stage 3b chronic kidney disease (CMS/HCC V24, CMS/HCC V28) 06/24/2025 10:30 AM EDT Anticoagulation - Warfarin Visit [facility] - [address] [phone] Atrial fibrillation, unspecified type (CMS/HCC V24, CMS/HCC V28) (Primary Dx); 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 06/12/2025 10:45 AM EDT Anticoagulation - Warfarin Visit [facility] - [address] [address] Atrial fibrillation, unspecified type (CMS/HCC V24, CMS/HCC V28) (Primary Dx); intermediate (current) use of anticoagulants 06/05/2025 10:00 AM EDT Anticoagulation - Warfarin Visit Coumadin [address] [phone] Atrial fibrillation, unspecified type (CMS/HCC V24, CMS/HCC V28) (Primary Dx); intermediate (current) use of anticoagulants 05/29/2025 10:00 AM EDT Anticoagulation - Warfarin Visit Coumadin [address] [phone] Atrial fibrillation, unspecified type ([facility]/HCC V24, CMS/HCC V28) (Primary Dx); 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 from Last 3 Months Immunizations Immunization Administration Dates Next Due Influenza Quadravalent, 0.5m [...] History Surgery Date Site/Laterality Comments COLONOSCOPY 10/17/19 [facility] PROCEDURE: HISTORICAL COLONOSCOPY; COMMENT: sigmoid adenoma and tics COLONOSCOPY 05/02/14 PROCEDURE: [place] COLONOSCOPY STOMA W/RMVL BART POLYP/OTH LES SNARE; COMMENT: adenoma and tics; repeat in 5 yrs Medical History Medical History Date Comments A-fib ([facility] V24, [facility] V28) 03/16/2012 DX:A-fib ([facility]) CAD (coronary artery disease) 03/16/2012 DX :CAD (coronary artery disease) High cholesterol 03/16/2012 DX:High cholest anh HTN (hypertension) 03/16/2012 DX:HTN (hyper tension) Historical Medical DX 04/20/2012 DX:PPD neg ative RA (rheumatoid arthritis) ([facility] V24, [facility] V28) 03/16/2012 DX:RA (rheumatoid arthritis) ([facility]) Glaucoma 06/05/2012 DX:Glaucoma 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 For example, child development assistant or elderly care for an older adult? [...] Date Recorded What is your living situation? Unrecognized valu e 02/22/2025 Interpersonal Safety Answer Date Record ed Physical Abuse Unrecognized value 02/22/2025 Verbal Abuse Unrecognized value 02/22/2025 Sex and Gender Information Value Date [...] 1:00 PM EDT Office Visit Adult Medicine [facility] [address] [place] [address] Thao Ramirez NP [address] [place] [address] 09/12/2025 1:00 PM EDT Anticoagulation - Warfarin Visit [facility] Clinic - [address] [phone] Health Maintenance Due Date Last Done Comments Colorectal Cancer Screening: Colonoscopy 1944 Diabetes: Annual Foot Exam 1954 RSV Immunization Adult Patients (1 - 1-dose 75+ series) 2019 Diabetes: Annual Retina Eye Exam 02/16/2025 02/17/2024 [...] 04/08/2015, 11/16/2007 Depression Screening Completed 12/10/2024, 12/08/19 HIB Vaccines Aged Out No longer eligi [...] fibrillation, unspecified type (CMS/HCC V24, CMS/HCC V28) 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 POC PROTIME INR BLOOD Routine 07/17/2025 10:06 AM EDT Atrial fibrillation, unspecified type (CMS/HCC V24, CMS/HCC V28) intermediate (current) use of anticoagulants MICROALBUMIN CREATININE URINE [...] fibrillation, unspecified type (CMS/HCC V24, CMS/HCC V28) 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 POC PROTIME INR BLOOD Routine 06/12/2025 10:26 AM EDT Atrial fibrillation, unspecified type (CMS/HCC V24, CMS/HCC V28) 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 POC PROTIME INR BLOOD Routine 06/05/2025 9:52 AM EDT Atrial fibrillation, unspecified type (CMS/HCC V24, CMS/HCC V28) 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 Lot Number INR POC 2.6 Prothrombin Time POC Exp Date Blood 08/14/2025 10:0 7 AM EDT us Anjel Man MD POINT OF CARE TEST ENTER/EDIT ORDERABLES Final Result * (ABNORMAL) Microalbumin creatinine urine ratio (07/16/2025 11:10 AM EDT) Creatinine, Urine 17.0 mg/dL LAB CHEMISTRY METHOD 07/16/2025 4:12 PM EDT [facility] Microalb, Ur 112.0(H) 0.0 - 29.0 mg/L LAB CHEMISTRY METHOD 07/16/2025 4:12 PM EDT [facility] Microalb/Crea t Ratio 659(H) <30 mg/g creat LAB CHEMISTRY METHOD 07/16/2025 4:12 PM EDT [facility] Urine Urine specimen obtained by clean catch procedure / Unknown Non-blood Collection / Unknown 07/16/2025 11:10 AM EDT 07/16/2025 11:10 AM EDT us Moris Machado MD LAB URINE ORDERABLES Final Resu lt Performing Organization Address [facility]/ZIP Co de Phone Number [facility] [address] [place] [address], [place] [phone] * (ABNORMAL) Lipid panel with reflex to direct LDL (07/16/2025 11:05 AM EDT) Cholesterol 152 0 - 200 mg/dL LAB CHEMISTRY METHOD 07/16/2025 2:59 PM EDT [facility] Triglycerides 190(H) 0 - 150 mg/dL LAB CHEMISTRY METHOD 07/16/2025 2:59 PM EDT [facility] HDL 68 >=40 mg/dL LAB CHEMISTRY METHOD 07/16/2025 2:59 PM EDT [facility] LDL Calculated 46 0 - 100 mg/dL LAB CHEMISTRY METHOD 07/16/2025 2:59 PM EDT [facility] Comment:Estimated LDL Calcul ated using equation: Total cholesterol - HDL cholesterol - (Triglycerides/5) VLDL Cholesterol Oliverio 38 mg/dL LAB CHEMISTRY METHOD 07/16/2025 2:59 PM EDT [facility] Non HDL Chol. (LDL+VLDL) 84 <145 mg/dL LAB CHEMISTRY METHOD 07/16/2025 2:59 PM EDT [facility] Chol/HDL Ratio 2.2 0.0 - 4.4 LAB CHEMISTRY METHOD 07/16/2025 2:59 PM EDT [facility] Blood Venous blood specimen / Unknown Venipuncture / Unknown 07/16/2025 11:05 AM EDT 07/16/2025 11:05 AM EDT Moris Machado MD LAB BLOOD ORDERABLES Final Resu lt [facility] [address] [place] [address], [place] [phone] * (ABNORMAL) Hemoglobin A1c (07/16/2025 11:05 AM EDT) [facility] Hemoglobin A1C 8.9(H) <6.5 % LAB CHEMISTRY METHOD 07/16/2025 9:18 PM EDT [facility] Mean Bld Glu Estim. 209 mg/dL LAB CHEMISTRY METHOD 07/16/2025 9:[address] [facility] Blood Venous blood specimen / Unknown Venipuncture / Unknown 07/16/2025 11:05 AM EDT 07/16/2025 11:05 AM EDT us Nicole ROSALES LAB BLOOD ORDERABLES Final Result [facility] [address] [place] [address], [place] [phone] * (ABNORMAL) Comprehensive metabolic panel (07/16/2025 11:05 AM EDT) [facility] Sodium 139 133 - 145 mmol/L LAB CHEMISTRY METHOD 07/16/2025 2:[address] [facility] Potassium 4.2 3.5 - 5.5 mmol/L LAB CHEMISTRY METHOD 07/16/2025 2:[address] [facility] Chloride 102 96 - 110 mmol/L LAB CHEMISTRY METHOD 07/16/2025 2:[address] [facility] CO2 27 21 - 32 mmol/L LAB CHEMISTRY METHOD 07/16/2025 2:[address] [facility] Anion Gap 10 3 - 11 LAB CHEMISTRY METHOD 07/16/2025 2:[address] [facility] Glucose 161(H) 70 - 100 mg/dL LAB CHEMISTRY METHOD 07/16/2025 2:[address] [facility] BUN 51(H) 5 - 25 mg/dL LAB CHEMISTRY METHOD 07/16/2025 2:[address] [facility] Creatinine 1.91(H) 0.70 - 1.30 mg/dL LAB CHEMISTRY METHOD 07/16/2025 2:59 PM EDT [facility] eGFR 35(L) >=60 mL/min/1. 73m2 LAB CHEMISTRY METHOD 07/16/2025 2:59 PM T [facility] Comment:Calculation based on the Chronic Kidney Disease Epidemiology Collaboration (CKD-EPI) equation refit without adjustment for race. BUN/Creatinine Ratio 26.7 LAB CHEMISTRY METHOD 07/16/2025 2:59 PM EDT [facility] Calcium 9.8 8.5 - 10.5 mg/dL LAB CHEMISTRY METHOD 07/16/2025 2:59 PM T [facility] Comment:Results verified by repeat testing AST (SGOT) 14 10 - 42 unit/L LAB CHEMISTRY METHOD 07/16/2025 2:[address] [facility] ALT (SGPT) 17 10 - 60 unit/L LAB CHEMISTRY METHOD 07/16/2025 2:59 PM T [facility] Alkaline Phosphatase 57 42 - 121 unit/L LAB CHEMISTRY METHOD 07/16/2025 2:59 PM T [facility] Total Protein 8.1(H) 6.0 - 8.0 g/dL LAB CHEMISTRY METHOD 07/16/2025 2:[address] [facility] Albumin 3.9 3.2 - 5.0 g/dL LAB CHEMISTRY METHOD 07/16/2025 2:59 PM EDT [facility] Total Bilirubin 0.5 0.0 - 1.4 mg/dL LAB CHEMISTRY METHOD 07/16/2025 2:[address] [facility] Blood Venous blood specimen / Unknown Venipuncture / Unknown 07/16/2025 11:05 AM EDT 07/16/2025 11:05 AM EDT us Moris Machado MD LAB BLOOD ORDERABLES Final Resu lt [facility] [address] [place] [address], [place] [phone] * Diabetes Eye Exam (02/17/2024) Diabetes: Annual Retina Eye Exam abstracted Historical Provider MD HEALTH MAINTENANCE Final Result * Depression Screening (12/08/2023) Depression Screening abstracted Historical Provider MD HEALTH MAINTENANCE Final Result * Falls Risk Assessment (11/09/2023) Pathologist [facility] Falls Risk Assessment abstracted Historical Provider MD HEALTH MAINTENANCE Final Result from Last 3 Months or Most Recently Relevant to Health Maintenance Insurance [employer] MEDICARE Member Subscriber Plan / Payer (Ef fective 2024-Present) Name:Tommy Love Relation to Subscriber:Self Name:Tommy Love Payer ID:[id number] Group ID:[id number] Type:Not on file Address: [place] [address] [address] [phone] Advance Directives * Full Code - Default (Latest Code Status on File) Date Activated Date Inactivated Comments 02/21/2025 9:15 AM 02/26/2025 7:12 PM This is order is used when code status has not [...] Agents on File Name Relationship Healthcare Agent [facility] Communication Marissa Love Spouse Health Care Agent Care Teams User Experience Team Lead Relationship Specialty Start Date End Date Moris Machado MD [address] [place] [phone] PCP - General Internal Medicine 10/09/24
--- OUTSIDE RECORDS SUMMARY | 2025-08-26 17:14 | XMS_ITS | Encounter Summary ---
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
== END 2025-08-26 15:06 | disposition home or self-care (01) ==
LOC: HO.LAB 15:05
PROVIDERS: PCP Internal Medicine; Visit Provider Internal Medicine Nephrology
DX: E11.22 Type 2 diabetes mellitus with diabetic chronic kidney disease (principal); N18.32 Chronic kidney disease, stage 3b; N25.0 Renal osteodystrophy
CPT/HCPCS: 36415; 80051; 81001; 82040; 82043; 82306; 82310; 82565; 82570; 83735; 83970; 84100; 84156; 84520; 85025

== ENCOUNTER → 2025-09-20 23:59 | Outpatient (BNV) | payer OTHER, SELFPAY ==
--- NOTE | 2025-09-27 16:34 | A.OFFVIS_ITS ---
Intake Visit Reasons: Remote cardiomems- [facility] Allergies No Known Allergies Allergy (Unknown, Verified 06/26/25 10:51) NOT APPLICABLE PFSH Medical History COPD exacerbation Pulmonary nodule 1 cm or greater in diameter Combined pulmonary fibrosis and emphysema (CPFE) (HFpEF) heart failure with preserved ejection fraction IPF (idiopathic pulmonary fibrosis) COPD (chronic obstructive pulmonary disease) Reactive airway disease Pulmonary hypertension Chronic respiratory failure CHF (congestive heart failure) ILD (interstitial lung disease) Acute exacerbation of CHF (congestive heart failure) SVT (supraventricular tachycardia) CHF exacerbation Chronic anticoagulation Atrial fibrillation Chronic hypoxemic respiratory failure Hypertension Rheumatoid arthritis Lymphadenopathy Surgical History Hx of colonoscopy Social History Household Members: Spouse and Children Housing: House Do you presently have visiting nurse or other home services: No Alcohol intake: former Comment: patient rings appropriately Patient Tobacco Use Status: Former Tobacco user Tobacco use type: Cigarette Years Smoked: 40 e-Cigarette/Vaping Use: Former Use Second Hand Smoke Exposure: No Advance Directives Date on File: 06/27/23 service: No Current occupational status: retired Office Procedures Cardiac Device Check Cardiac Device Check Details: Monitoring period dates: 08/09/25 - 09/20/25 Optimal PA pressure range: ADDY goal 45mmhg Procedure code: 71873 BACKGROUND: Tommy is implanted with the CardioMEMS PA Sensor.? I use this technology to monitor PA pressures on a weekly basis to ensure patients are within their optimal range to prevent decompensation.? SUMMARY:? I utilized the remote monitoring platform ([employer]) to set optimal targets for pulmonary artery pressure thresholds as part of acute and chronic management of patient?s heart failure. During the period indicated above, I monitored the patient?s pulmonary artery pressures weekly via trend analysis and notification reports which provide alerts when patient?s PA pressures were outside of range to prompt immediate action in medication changes and communications.? The weekly reports are archived in the [employer] system which serve as a parallel record to document weekly PA pressures, medication changes, and clinical notes. I have reviewed readings on 08/09, 08/16, 08/23, 08/30, 09/06, 09/13, 09/20 . ADDY readings have ranged 41-52mmhg. No diuretic changes made. 23448 - Remote monitoring of wireless pulmonary artery pressure sensor Procedure code (CPT) selection complete Assessment & Plan Assessment & Plan (1) Presence of CardioMEMS HF system: Code(s): Z95.818 - Presence of other cardiac implants and grafts Category: Medical Plan: monthly report Coding Level of Care Code Procedure Only Diagnoses Presence of CardioMEMS HF system Z95.818 CPT Codes Cardiac Device Check - Cardiac Device 17: 69285 - Remote monitoring of wireless pulmonary artery pressure sensor ([id number])
== END ==
PROVIDERS: PCP Internal Medicine; Visit Provider Nurse Practitioner Family
DX: Z45.09 Encounter for adjustment and management of other cardiac device (principal)
CPT/HCPCS: 93264